=== PATIENT | female | born 1945 | race Caucasian/White ===

== ENCOUNTER 2017-12-29 13:22 | Outpatient (REF) | payer MEDICARE, OTHER, MEDICAID, SELFPAY ==
[2017-12-30 11:44] LABS: Campylobacter PCR SEE COMMENTS; Salmonella PCR SEE COMMENTS; Shiga Toxin PCR SEE COMMENTS; Shigella/Enteroinvasive Ecoli SEE COMMENTS
== END 2017-12-29 13:42 ==
LOC: LBN 13:22
PROVIDERS: PCP Family Medicine; Visit Provider Family Medicine
DX: R19.7 Diarrhea, unspecified (principal)
CPT/HCPCS: 87505

== ENCOUNTER → 2018-01-03 10:50 | Outpatient (BNVA) | payer MEDICARE, OTHER, MEDICAID, SELFPAY | PROVIDERS: PCP Family Medicine; Referring Provider Family Medicine; Visit Provider Orthopaedic Surgery | DX: S72.451D Displaced supracondylar fracture without intracondylar extension of lower end of right femur, subsequent encounter for closed fracture with routine healing (principal); X58.XXXD Exposure to other specified factors, subsequent encounter | CPT/HCPCS: 99211; 99213 ==

== ENCOUNTER 2018-01-03 12:43 | Outpatient (CLI) | payer MEDICARE, OTHER, MEDICAID, SELFPAY ==
--- NOTE | 2018-01-03 11:21 | DI.RAD_ITS ---
SYMPTOMS/DIAGNOSIS: FOLLOW UP FX RIGHT FEMUR: When compared with the previous examination of 10/04/17, there has been further healing of the distal femoral fracture with no interval change in position. A plate and compression screw device is noted in place.
== END 2018-01-03 13:03 ==
PROVIDERS: PCP Family Medicine; Visit Provider Orthopaedic Surgery
DX: S72.451D Displaced supracondylar fracture without intracondylar extension of lower end of right femur, subsequent encounter for closed fracture with routine healing (principal)
CPT/HCPCS: 73552; 99211; 99213

== ENCOUNTER 2018-03-30 11:53 | Inpatient (IN) | payer MEDICARE, OTHER, MEDICAID, SELFPAY ==
[2018-03-30] VITALS (58 sets, daily range): BP systolic 88–131; BP diastolic 40–82; PULSE 84–120; RESP 8–40; TEMP 36.7–38.2; O2SAT 85–100
--- NOTE | 2018-03-30 12:23 | DI.RAD_ITS ---
SYMPTOMS/DIAGNOSIS: COUGH, SHORTNESS OF BREATH, HYPOXIC CHEST X-RAY, PA AND LATERAL: Comparison chest x-ray is 09/18/15. The heart size and pulmonary vasculature are within normal limits. The lungs are hyperinflated consistent with underlying COPD. There are increased infiltrates seen in the left lower lobe. The findings are suspicious for pneumonia or atelectasis. There is scarring in the right lung base. No effusions or pneumothoraces are identified. Degenerative changes are seen in the spine. IMPRESSION: 1. Left lower lobe infiltrate suspicious for pneumonia. 2. COPD and pulmonary fibrosis.
[2018-03-30] MEDS: Normal Saline 1,000 ML 1000 ML IV ×2 (12:30→14:38)
[2018-03-30] MEDS: Acetaminophen 500 MG TAB 1000 MG PO (12:43)
[2018-03-30 12:47] LABS: BE (Venous) 4.7 mmol/L (-3-3); HCO3 (Venous) 30 mmol/L (22-28); O2 Sat (Venous) 61 % (70-80); TCO2 (Venous) 27 mmol/L (22-29); pCO2 (Venous) 52 mm/Hg (34-47); pH (Venous) 7.37 (7.32-7.43); pO2 (Venous) 31 mm/Hg (28-44)
[2018-03-30 12:51] LABS: Lactate-non-spesis 1.1 mmol/L (0.6-1.4)
[2018-03-30 12:55] LABS: Abs Immature Grans 0.04 k/cumm (0.0-0.09); Absolute Basophil Count 0.02 k/cumm (0.0-0.2); Absolute Eosinophil Count 0.05 k/cumm (0.0-0.7); Absolute Lymphocyte Count 1.07 k/cumm (1.2-3.4); Absolute Neutrophil Count 14.86 k/cumm (1.2-6.7); Basophils % 0.1; Eosinophils % 0.3; HCT 46.2 % (36.0-46.0); HGB 14.9 g/dL (12.0-15.5); Immature Grans % 0.2; Lymphocytes % 6.3; Mean Corp. HGB Concentration 32.3 g/dL (32.0-36.0); Mean Corpuscular Hemoglobin 29.9 pg (27.0-33.0); Mean Corpuscular Volume 92.8 fL (80-95); Mean Platelet Volume 9.4 fL (8.0-11.0); Monocytes % 5.3; Neutrophils % 87.8; Platelet Count 239 x1000/uL (130-400); RBC 4.98 m/cumm (4.00-5.20); RBC Distribution Width 14.6 % (11.7-14.6); White Blood Cell Count 16.93 k/cumm (4.4-10.8)
[2018-03-30 13:23] LABS: ALT 27 U/L (12-78); AST 17 U/L (15-37); Albumin 3.5 g/dL (3.4-5.0); Alkaline Phosphatase 97 U/L (46-116); Anion Gap 7.7 mmol/L (3-11); BUN 9 mg/dL (7-18); Bilirubin, Total 0.7 mg/dL (0.2-1.0); CO2 31.3 mmol/L (21.0-32.0); CREATININE 0.79 mg/dL (0.55-1.02); Calcium 9.4 mg/dL (8.5-10.1); Chloride 100 mmol/L (98-107); Glucose 130 mg/dL (70-100); Potassium 3.5 mmol/L (3.5-5.1); Sodium 139 mmol/L (136-145); Total Protein 7.7 g/dL (6.4-8.2)
[2018-03-30 13:27] LABS: Troponin I < 0.02 ng/mL (0.00-0.06)
[2018-03-30] MEDS: AZITHROMYCIN 500 MG in Normal Saline 250 ML 250 MG IVPB (14:00)
--- NOTE | 2018-03-30 14:30 | ED.GENADUL_ITS ---
Discharge Plan Disposition Patient Disposition: [facility] INPATIENT Condition: Stable Discharge Details Chief Complaint: RespSymp Clinical Impression: COPD (chronic obstructive pulmonary disease), Community acquired pneumonia, Hypoxemia Reason For Visit: PNEUMONIA, HYPOXIA Admit Date/Time: 03/30/18 15:09 Admit Provider: Kalia Eden Attending Provider: Kalia Eden Primary Care Provider: Ralph Rahman ED Provider: Filiberto Boone Discharge Data Discharge Date/Time-TO BE ENTERED AT DEPARTURE: 03/30/18 16:30 Medical Decision Making This is a 72-year-old female who presents for evaluation of shortness of breath for the last 2-3 weeks, with some left and right sided associated chest pain that she has associated with cough that occurred after a notable coughing episode. She does have home O2 only has not had needed basis. She has had productive green sputum. Her home O2 was noted to be in the low 80s to high 70s. She came in for further evaluation today. She noted notable hypoxemia on initial assessment but came up well with supplemental oxygen. Notable crackles in the left and the right. X-ray does show evidence per radiology of left lower lobe pneumonia, I am concerned for some mild right-sided pneumonia as well. Patient does have an elevated white count but a normal lactate. She will be rehydrated, pressures have remained stable in the low 100s to high 90s. Map is greater than 65. We have started her on 2 g of Rocephin and azithromycin for community-acquired pneumonia as she has had no admissions over the last 90 days or antibiotics. With the patient's oxygen requirements, evidence of pneumonia, fever, and clinical picture I do think she would benefit from admission. I discussed the case with Dr. Trevino he agrees with the assessment and plan. I have extensively reviewed the treatment plan with the patient. I have addressed all patient concerns at this time. I have also discussed the plan with the admitting physician and they agree with the current assessment and plan and have agreed to assume responsibility for the patient. All parties demonstrate verbal understanding and agreement with our assessment and plan at this time. EKG 12: 38 Rate 106, IL 144, QTc 457, QRS 84, sinus tachycardia, no significant ST elevations or depressions, questionable T wave inversion in V1 V2. Small Q wave in lead II, III, and aVF. No evidence of STEMI IMPRESSION: 1. Left lower lobe infiltrate suspicious for pneumonia. 2. COPD and pulmonary fibrosis. HPI General Date/Time Provider Initiated Documentation: 03/30/18 12:22 . HPI Narrative: This is a 72-year-old female with a past medical history of COPD, and no history of cardiac disease who presents today for evaluation of shortness of breath cough and chest pain. The patient states that over the last 2-3 weeks she has had a mild cough, which is gradually been getting worse, she has had subjective fever and chills at home. She has had productive sputum with green and yellow sputum. She does admit to some mild chest pain that appears to be associated with a cough. She says that it is notably reproducible when she touches her chest and she feels like she might have thrown out her rib. She has home oxygen only when needed, she states that she was checking her pulse oximetry at home today and she was between 79%. She came in immediately for further evaluation. Patient denies any radiation of her chest pain to her arms or neck, the pain is only located in her right lateral ribs, when she coughs. Denies PE risk factors such as recent long car rides, immobilization, recent surgery, prior history of DVT or PE, family history of PE or DVT, morbid obesity, exogenous estrogen and smoking, hemoptysis, history of cancer. The patient's most recent hospitalization was a year ago for knee surgery. Patient denies any other complaints at this time. She has not been on any recent antibiotics. Patient denies any IV or illicit drug use. Related Data Home Medications Medication Instructions Recorded Confirmed guaifenesin [Mucinex] 600 mg PO DAILY PRN 05/22/15 03/30/18 Salonpas 1 ea TOPICAL .DAILY X 12 HOURS 11/10/16 03/30/18 budesonide 1 vial INHALATION BID 12/15/16 03/30/18 formoterol fumarate [Perforomist] 1 vial INHALATION BID ml 12/15/16 03/30/18 Proventil Hfa 1 - 2 puff INHALATION Q4H PRN #1 06/30/17 03/30/18 inhaler budesonide-formoterol HFA 80 2 puff INHALATION BID #10.2 gm 01/24/18 03/30/18 mcg-4.5 mcg/actuation aerosol inhaler sertraline 100 mg tablet 100 mg PO DAILY #30 tab-cap 01/24/18 03/30/18 umeclidinium 62.5 mcg/actuation 1 inh INHALATION DAILY #30 puff 01/24/18 03/30/18 blister powder for inhalation roflumilast 500 mcg tablet 500 mcg PO DAILY #90 tab-cap 02/24/18 03/30/18 clonazepam 1 mg tablet 1 mg PO BID PRN #60 tab 03/27/18 03/30/18 cyclobenzaprine 5 mg tablet 5 mg PO HS PRN #30 tab 03/27/18 03/30/18 Previous Rx's Medication Instructions Recorded budesonide-formoterol HFA 80 2 puff INHALATION BID #10.2 gm 01/24/18 mcg-4.5 mcg/actuation aerosol inhaler sertraline 100 mg tablet 100 mg PO DAILY #30 tab-cap 01/24/18 umeclidinium 62.5 mcg/actuation 1 inh INHALATION DAILY #30 puff 01/24/18 blister powder for inhalation roflumilast 500 mcg tablet 500 mcg PO DAILY #90 tab-cap 02/24/18 clonazepam 1 mg tablet 1 mg PO BID PRN #60 tab 03/27/18 cyclobenzaprine 5 mg tablet 5 mg PO HS PRN #30 tab 03/27/18 Allergies Allergy/AdvReac Type Severity Reaction Status Date / Time No Known Allergies Allergy Unverified 03/30/18 12:10 General Stated Complaint: RespSymp MCKAYLA: 2 Review of Systems Review of Systems All systems reviewed & are unremarkable except as noted in HPI and below PFSH Appendectomy CHEST TUBE Extraction of cataract LAMINECTOMY Social History lives independently: Yes other: living along; missing her family; lonely Smoking/Tobacco Use Status: Former Tobacco Use quit date: 09/16/13 pack-years: 25 alcohol intake: current alcohol intake frequency: holidays/special occasions only substance use type: does not use additional social history: 16 years ago. Originally from [place], moved here to be near son and grand children. On disability due to chronic back pain. 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 Approximate 75 pack year history of tobacco. No alcohol or illicit drug use endorsed. Exam Narrative Exam Narrative: 1.Const: Well-nourished, Well-developed, appearing stated age 2.Eyes: PERRL, no conjunctival injection, and symmetrical lids. 3.ENT: Atraumatic external nose and ears. Notably dry MM. Neck: Symmetric, trachea midline, No thyromegaly. 4.CVS: +S1/S2, No murmurs or gallops. Peripheral pulses 2+ and equal in all extremities. Brisk capillary refill in all extremities. 5.RESP: No wheezes or rhonchi, crackles in the bases tight lateral, notable reproducible chest pain on palpation of the right and left chest 6.GI: Soft, Nontender/Nondistended, No hepatosplenomegaly. No guarding or rebound. 7.MSK: Normocephalic/Atraumatic, Extremities w/o deformity or ttp No cyanosis or clubbing, Normal movement of all extremities 8.Skin: Warm, Dry. No rashes or lesions. 9.Neuro: baking powder mixer II-XII grossly intact. Sensation grossly intact, no focal neurologic deficits. 10.Psych: (AAO) x3. Appropriate mood and affect Course Vital Signs Temperature 38.2 C H 03/30/18 11:59 Pulse 120 H 03/30/18 11:59 Respiratory Rate 18 03/30/18 11:59 Blood Pressure 94/55 L 03/30/18 11:59 Pulse Oximetry 85 L 03/30/18 11:59 Temperature 38.2 C H 03/30/18 11:59 Pulse 120 H 03/30/18 11:59 Respiratory Rate 18 03/30/18 11:59 Respiratory Effort Labored 03/30/18 14:01 Blood Pressure 94/55 L 03/30/18 11:59 Blood Pressure Position Sitting 03/30/18 11:59 Pulse Oximetry 85 L 03/30/18 11:59 Oxygen Delivery Method Room Air 03/30/18 11:59 Oxygen Flow Rate 0 03/30/18 11:59 Lab/Test Results Lab/Test Results: 03/30/18 13:00 Blood Blood Culture - Pending 03/30/18 12:30 Blood Blood Culture - Pending Laboratory Tests Range/Units 03/30/18 03/30/18 03/30/18 12:30 12:30 12:30 WBC (4.4-10.8) k/cumm 16.93 H RBC (4.00-5.20) m/cumm 4.98 Hgb (12.0-15.5) g/dL 14.9 Hct (36.0-46.0) % 46.2 H MCV (80-95) fL 92.8 MCH (27.0-33.0) pg 29.9 MCHC (32.0-36.0) g/dL 32.3 RDW (11.7-14.6) % 14.6 Plt Count (130-400) x1000/uL 239 MPV (8.0-11.0) fL 9.4 Immature Gran % 0.2 Neutrophils % 87.8 Lymphocytes % 6.3 Monocytes % 5.3 Eosinophils % 0.3 Basophils % 0.1 Absolute Neutrophils (1.2-6.7) k/cumm 14.86 H Absolute Lymphocytes (1.2-3.4) k/cumm 1.07 L Absolute Monocytes (0.11-0.7) k/cumm 0.90 H Absolute Eosinophils (0.0-0.7) k/cumm 0.05 Absolute Basophils (0.0-0.2) k/cumm 0.02 VBG pH (7.32-7.43) VBG pCO2 (34-47) mm/Hg VBG pO2 (28-44) mm/Hg VBG HCO3 (22-28) mmol/L VBG Total CO2 (22-29) mmol/L VBG O2 Saturation (70-80) % VBG Base Excess (-3-3) mmol/L Sodium (136-145) mmol/L 139 Potassium (3.5-5.1) mmol/L 3.5 Chloride (98-107) mmol/L 100 Carbon Dioxide (21.0-32.0) mmol/L 31.3 Anion Gap (3-11) mmol/L 7.7 BUN (7-18) mg/dL 9 Creatinine (0.55-1.02) mg/dL 0.79 Estimated GFR/1.73 m2 (mL/min/1.73m2) >= 60.00 Glucose (70-100) mg/dL 130 H Lactate (0.6-1.4) mmol/L 1.1 Calcium (8.5-10.1) mg/dL 9.4 Total Bilirubin (0.2-1.0) mg/dL 0.7 AST (15-37) U/L 17 ALT (12-78) U/L 27 Alkaline Phosphatase (46-116) U/L 97 Troponin I (0.00-0.06) ng/mL < 0.02 Total Protein (6.4-8.2) g/dL 7.7 Albumin (3.4-5.0) g/dL 3.5 Range/Units 03/30/18 12:30 WBC (4.4-10.8) k/cumm RBC (4.00-5.20) m/cumm Hgb (12.0-15.5) g/dL Hct (36.0-46.0) % MCV (80-95) fL MCH (27.0-33.0) pg MCHC (32.0-36.0) g/dL RDW (11.7-14.6) % Plt Count (130-400) x1000/uL MPV (8.0-11.0) fL Immature Gran % Neutrophils % Lymphocytes % Monocytes % Eosinophils % Basophils % Absolute Neutrophils (1.2-6.7) k/cumm Absolute Lymphocytes (1.2-3.4) k/cumm Absolute Monocytes (0.11-0.7) k/cumm Absolute Eosinophils (0.0-0.7) k/cumm Absolute Basophils (0.0-0.2) k/cumm VBG pH (7.32-7.43) 7.37 VBG pCO2 (34-47) mm/Hg 52 H VBG pO2 (28-44) mm/Hg 31 VBG HCO3 (22-28) mmol/L 30 H VBG Total CO2 (22-29) mmol/L 27 VBG O2 Saturation (70-80) % 61 L VBG Base Excess (-3-3) mmol/L 4.7 H Sodium (136-145) mmol/L Potassium (3.5-5.1) mmol/L Chloride (98-107) mmol/L Carbon Dioxide (21.0-32.0) mmol/L Anion Gap (3-11) mmol/L BUN (7-18) mg/dL Creatinine (0.55-1.02) mg/dL Estimated GFR/1.73 m2 (mL/min/1.73m2) Glucose (70-100) mg/dL Lactate (0.6-1.4) mmol/L Calcium (8.5-10.1) mg/dL Total Bilirubin (0.2-1.0) mg/dL AST (15-37) U/L ALT (12-78) U/L Alkaline Phosphatase (46-116) U/L Troponin I (0.00-0.06) ng/mL Total Protein (6.4-8.2) g/dL Albumin (3.4-5.0) g/dL
[2018-03-30] MEDS: Albuterol/Ipratropium 3 ML UPD VIAL UPD ×2 (14:45→18:21)
[2018-03-30] MEDS: methylPREDNISolone SUCC 125 MG VIAL IVP (14:45)
--- NOTE | 2018-03-30 15:32 | NUR.NOTE ---
Dr Eden ordered blood cultures on admission. Dr Boone already orded on initial ER work up. I cancelled Dr. Eden's BC order with his permission.Nursing Note:
--- NOTE | 2018-03-30 16:44 | W.PM.HP.N ---
Assessment and Plan (1) Bacterial pneumonia: Current visit: No Status: Acute No recently reported antibiotic use or hospitalizations. Initiated on Azithromycin and Ceftriaxone - will continue. Monitor blood cultures and check sputum culture as well. Mrs. Stephens has a fever, tachypnea, tachycardia, hypotension, elevated WBC with a pulmonary source. Technically qualifies as sepsis, but with a normal Lactic Acid, normal creatinine and LFTs, normal platelet count, and no evidence of acute respiratory failure. Also reports hypotension is chronic and essentially unchanged. Has received aggressive IVFs in the ED, which will be continued. May benefit from initial monitoring in the ICU. (2) Chronic emphysema syndrome: Current visit: No Status: Chronic No apparent acute exacerbation. Initiated on IV Steroids due to current pneumonia and concurrent hypoxia. Continue aggressive duonebs, inhaled budesonide, and prn Xopenex as well. (3) Chronic anxiety: Current visit: No Status: Chronic Continue SSRI and home Clonazepam. (4) DVT (deep venous thrombosis): Current visit: Yes Status: Acute SC Lovenox. Initiate PPI therapy for GI prophylaxis as well. History of Present Illness Chief Complaint: Cough, dyspnea Narrative: Very pleasant 72-year-old woman with past medical history significant for COPD, presents to [facility] emergency department with complaints of cough and dyspnea. Mrs. Stephens as an approximate [id number] history of tobacco abuse, and subsequent development of significant COPD. She reports a change in her cough approximately 2-3 weeks ago, with onset of acute or worsening symptoms accompanied by dyspnea last night. She also endorsed a fever with a temperature of 101, as well as hypoxia with a pulse ox in the 80s. She attempted to use her home O2 but continued to be uncomfortable, and eventually had multiple bouts of vomiting. Due to her symptoms she presented to the emergency department for further evaluation and treatment. Workup in the ED was significant for evidence of a fever with a temperature of 38.2, tachycardia and hypotension, and initial hypoxia. Lab work showed evidence of a leukocytosis, and a chest x-ray confirmed a left lower lobe infiltrate. Given the above findings the patient was referred for admission for further evaluation and treatment. Review of Systems Review of Systems All systems reviewed & are unremarkable except as noted in HPI and below and Unobtainable due to (Chronic neck, back, and shoulder pain endorsed.) PFSH Appendectomy CHEST TUBE Extraction of cataract LAMINECTOMY Social History lives independently: Yes other: living along; missing her family; lonely Smoking/Tobacco Use Status: Former Tobacco Use quit date: 09/16/13 pack-years: 25 alcohol intake: current alcohol intake frequency: holidays/special occasions only substance use type: does not use additional social history: 16 years ago. Originally from [place], moved here to be near son and grand children. On disability due to chronic back pain. 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 Approximate 75 pack year history of tobacco. No alcohol or illicit drug use endorsed. Meds Home Medications Medication Instructions Recorded Confirmed Type guaifenesin [Mucinex] 600 mg PO DAILY PRN 05/22/15 03/30/18 History Salonpas 1 ea TOPICAL .DAILY X 12 HOURS 11/10/16 03/30/18 History budesonide 1 vial INHALATION BID 12/15/16 03/30/18 History formoterol fumarate [Perforomist] 1 vial INHALATION BID ml 12/15/16 03/30/18 History Proventil Hfa 1 - 2 puff INHALATION Q4H PRN #1 06/30/17 03/30/18 History inhaler budesonide-formoterol HFA 80 2 puff INHALATION BID #10.2 gm 01/24/18 03/30/18 Rx mcg-4.5 mcg/actuation aerosol inhaler sertraline 100 mg tablet 100 mg PO DAILY #30 tab-cap 01/24/18 03/30/18 Rx umeclidinium 62.5 mcg/actuation 1 inh INHALATION DAILY #30 puff 01/24/18 03/30/18 Rx blister powder for inhalation roflumilast 500 mcg tablet 500 mcg PO DAILY #90 tab-cap 02/24/18 03/30/18 Rx clonazepam 1 mg tablet 1 mg PO BID PRN #60 tab 03/27/18 03/30/18 Rx cyclobenzaprine 5 mg tablet 5 mg PO HS PRN #30 tab 03/27/18 03/30/18 Rx Allergies Allergy/AdvReac Type Severity Reaction Status Date / Time No Known Allergies Allergy Unverified 03/30/18 12:10 Exam Narrative Exam Narrative: General: Thin woman who appears mildly uncomfortable and acutely ill but not toxic, AAOX3. HEENT: Dry Mucous Membranes Neck: Supple CV: Regular, borderline tachycardic at time of exam, S1S2, No rubs, murmurs, or gallops. Pulmonary: Crackles at the left base with decreased breath sounds. Minimal surrounding wheezing, otherwise clear to auscultation. Abdomen: + Bowel Sounds, soft, nontender, nondistended Vascular: No lower extremity edema Psych: Normal mood and affect. Results Imaging Chest x-ray: report reviewed Additional studies: Exam 03/30/2018 a RAD:XR chest 2V PA & lateral SYMPTOMS/DIAGNOSIS: COUGH, SHORTNESS OF BREATH, HYPOXIC CHEST X-RAY, PA AND LATERAL: Comparison chest x-ray is 09/18/15. The heart size and pulmonary vasculature are within normal limits. The lungs are hyperinflated consistent with underlying COPD. There are increased infiltrates seen in the left lower lobe. The findings are suspicious for pneumonia or atelectasis. There is scarring in the right lung base. No effusions or pneumothoraces are identified. Degenerative changes are seen in the spine. IMPRESSION: 1. Left lower lobe infiltrate suspicious for pneumonia. 2. COPD and pulmonary fibrosis. Labs : 03/30/18 12:30 03/30/18 12:30 Laboratory Results - last 24 hr 03/30/18 03/30/18 03/30/18 12:30 12:30 12:30 WBC 16.93 H RBC 4.98 Hgb 14.9 Hct 46.2 H MCV 92.8 MCH 29.9 MCHC 32.3 RDW 14.6 Plt Count 239 MPV 9.4 Immature Gran % 0.2 Neutrophils % 87.8 Lymphocytes % 6.3 Monocytes % 5.3 Eosinophils % 0.3 Basophils % 0.1 Absolute Neutrophils 14.86 H Absolute Lymphocytes 1.07 L Absolute Monocytes 0.90 H Absolute Eosinophils 0.05 Absolute Basophils 0.02 VBG pH VBG pCO2 VBG pO2 VBG HCO3 VBG Total CO2 VBG O2 Saturation VBG Base Excess Sodium 139 Potassium 3.5 Chloride 100 Carbon Dioxide 31.3 Anion Gap 7.7 BUN 9 Creatinine 0.79 Estimated GFR/1.73 m2 >= 60.00 Glucose 130 H Lactate 1.1 Calcium 9.4 Total Bilirubin 0.7 AST 17 ALT 27 Alkaline Phosphatase 97 Troponin I < 0.02 Total Protein 7.7 Albumin 3.5 03/30/18 12:30 WBC RBC Hgb Hct MCV MCH MCHC RDW Plt Count MPV Immature Gran % Neutrophils % Lymphocytes % Monocytes % Eosinophils % Basophils % Absolute Neutrophils Absolute Lymphocytes Absolute Monocytes Absolute Eosinophils Absolute Basophils VBG pH 7.37 VBG pCO2 52 H VBG pO2 31 VBG HCO3 30 H VBG Total CO2 27 VBG O2 Saturation 61 L VBG Base Excess 4.7 H Sodium Potassium Chloride Carbon Dioxide Anion Gap BUN Creatinine Estimated GFR/1.73 m2 Glucose Lactate Calcium Total Bilirubin AST ALT Alkaline Phosphatase Troponin I Total Protein Albumin Last Vital Signs Temp 38.2 C H 03/30/18 11:59 Pulse 96 H 03/30/18 16:01 Resp 40 H 03/30/18 16:10 BP 101/47 L 03/30/18 16:01 Pulse Ox 96 03/30/18 16:10
[2018-03-30] MEDS: Acetaminophen 325 MG TAB PO (17:06)
[2018-03-30] MEDS: Cyclobenzaprine 10 MG TAB 5 MG PO (17:07)
[2018-03-30] MEDS: Normal Saline 1,000 ML 175 ML IV ×2 (18:02→23:54)
[2018-03-30] MEDS: Enoxaparin 40 MG/0.4 ML SYR SC (18:03)
[2018-03-30] MEDS: Potassium Chloride 20 MEQ TABCR 40 MEQ PO (18:04)
[2018-03-30] MEDS: Magnesium Oxide 400 MG TAB PO (18:04)
[2018-03-30] MEDS: Budesonide 0.5 MG/2 ML UPD VIAL UPD (18:21)
[2018-03-30] MEDS: Benzonatate 100 MG CAP 200 MG PO (20:15)
[2018-03-30] MEDS: methylPREDNISolone SUCC 125 MG VIAL 60 MG IVP (22:56)
[2018-03-30 23:24] LABS: Bilirubin Negative (Negative); Blood Trace-lysed (Negative); Clarity Clear; Glucose 500 mg/dL (Negative); Ketones Negative (Negative); Leukocyte Esterase Negative (Negative); Nitrite Negative (Negative); Urobilinogen 0.2 EU/dL (Up TO 0.2); pH 5.5 (5-8)
[2018-03-30 23:32] LABS: Bacteria Rare HPF (Negative); C & S Indicated? No; Casts Negative LPF (Negative); Crystals Negative HPF (Negative); Epithelial Cells Rare HPF (Negative); Mucus Negative (Negative); RBC 0-2 (0-2); WBC 0-2 HPF (0-5)
[2018-03-31] VITALS (43 sets, daily range): BP systolic 92–113; BP diastolic 44–73; PULSE 53–164; RESP 5–23; TEMP 36–37; O2SAT 90–98
[2018-03-31] MEDS: Acetaminophen 325 MG TAB PO ×4 (04:17→23:23)
[2018-03-31] MEDS: guaiFENesin/D-METHORPHAN HB 5 ML CUP 10 ML PO ×2 (04:17→09:45)
[2018-03-31] MEDS: Normal Saline Flush 10 ML SYR ×3 (04:18→07:59)
[2018-03-31] MEDS: methylPREDNISolone SUCC 125 MG VIAL 60 MG IVP ×2 (04:18→09:40)
[2018-03-31] MEDS: Normal Saline 1,000 ML 175 ML IV ×2 (05:10→11:02)
[2018-03-31 07:13] LABS: Abs Immature Grans 0.02 k/cumm (0.0-0.09); Absolute Lymphocyte Count 0.51 k/cumm (1.2-3.4); Absolute Monocyte Count 0.14 k/cumm (0.11-0.7); HCT 37.9 % (36.0-46.0); Immature Grans % 0.2; Lymphocytes % 5.5; Mean Corp. HGB Concentration 31.7 g/dL (32.0-36.0); Mean Corpuscular Hemoglobin 30.1 pg (27.0-33.0); Mean Platelet Volume 9.3 fL (8.0-11.0); Monocytes % 1.5; Neutrophils % 92.8; Platelet Count 179 x1000/uL (130-400); RBC 3.99 m/cumm (4.00-5.20); RBC Distribution Width 14.7 % (11.7-14.6); White Blood Cell Count 9.21 k/cumm (4.4-10.8)
[2018-03-31 07:22] LABS: Absolute Neutrophil Count 8.55 k/cumm (1.2-6.7)
[2018-03-31 07:32] LABS: Anion Gap 7.7 mmol/L (3-11); BUN 7 mg/dL (7-18); CO2 25.3 mmol/L (21.0-32.0); CREATININE 0.59 mg/dL (0.55-1.02); Calcium 8.2 mg/dL (8.5-10.1); Chloride 109 mmol/L (98-107); Glucose 182 mg/dL (70-100); Magnesium 1.8 mg/dL (1.8-2.4); Potassium 4.1 mmol/L (3.5-5.1); Sodium 142 mmol/L (136-145)
[2018-03-31] MEDS: Sertraline 50 MG TAB 100 MG PO (07:58)
[2018-03-31] MEDS: Pantoprazole 40 MG VIAL IVP (07:58)
[2018-03-31] MEDS: Benzonatate 100 MG CAP 200 MG PO ×3 (07:58→19:45)
[2018-03-31] MEDS: Magnesium Oxide 400 MG TAB PO ×3 (09:37→09:40)
[2018-03-31] MEDS: Albuterol/Ipratropium 3 ML UPD VIAL UPD ×2 (11:15→14:22)
[2018-03-31] MEDS: Budesonide 0.5 MG/2 ML UPD VIAL UPD ×2 (11:21→19:45)
[2018-03-31] MEDS: Umeclidinium 7 CAP INHALER 1 CAP IH (11:25)
--- NOTE | 2018-03-31 11:52 | PHARADMIT ---
Addendum entered by Marilynn Marroquin 04/04/18 15:06: Pharmacy Note Subjective Objective BP-145/82 other VS okay labs are within normal limits Assessment no med changes azithromycin and ceftriaxone continue (day #6) Plan will finish out IV ceftriaxone so will not need to go home on abx per progress note possible discharge tomorrow Original Note: Addendum entered by Marilynn Marroquin 04/03/18 15:09: Pharmacy Note Subjective still not feeling back to baseline per progress note Objective VS-okay no labs Assessment guaifenesin changed from daily PRN to BID scheduled azithromycin and ceftriaxone continue (day #5 today) blood cultures no growth@ 96 hours, rapid flu negative, sputum grew normal ailyn and yeast Plan continue to watch VS, labs and for med changes Original Note: Addendum entered by Marilynn Marroquin 04/02/18 10:05: Pharmacy Note Subjective pt slept well last night per nursing report Objective VS-okay WBC-10.20(down) Assessment azithromycin changed from IV to Po azithromycin and ceftriaxone continue (day #4 today) IV pantoprazole discontinued Plan continue to watch VS, labs and for med changes Original Note: Addendum entered by Marilynn Marroquin 04/01/18 10:17: Pharmacy Note Subjective nursing asked about using heat to help with the patient's pain as that is what she uses at home Objective VS-okay pain-10/10 weight-57.5(up, nursing not sure if error), WBC-13.71(up) Assessment azithromycin and ceftriaxone continue (day #3 today) IV methylprednisolone changed to PO prednisone blood cultures no growth at 24 hours, sputum culture grew normal ailyn, rapid influenza was negative Plan continue to watch VS, labs and for med changes (IV to PO abx) Original Note: Admission Pharmacy Clinical Review PNEUMOMNIA/HYPOXIA Code Status DNR/DNI Current Weight 53.5 kg Renally Cleared and Narrow Therapeutic Index Meds CRCL ~54ML/MIN QTc Value / Action Taken 457 BP Control, Fever 95/59 AFEBRILE Electrolytes reviewed OK DVT Prophylaxis ENOXAPARIN Opiate Usage / Scheduled Bowel Regimen Ordered NO/PRN Plt/SCr for Heparin / Enoxaparin 179/0.59 INR for Warfarin NA H/H stable, WBC/Bands 12.0/37.9 WBC 9.21 Antibiotic appropriateness AZITHROMYCIN IV AND CEFTRIAXONE IV Cultures and Sensitivities BC PENDING, SPUTUM SHOWS GRAM POS AND NEG Surgical ABX d/c within 24 hr NA DM control / Insulin Dosing NA Heart Failure (Check EF%) (JAGRUTI's, B-Block, Diuretics) NA IV to PO Switch IV ABX Home Meds Reviewed Avoid concurrent use of umeclidinium with any other drugs that have anticholinergic properties. If such combinations cannot be avoided, monitor patients closely for evidence of anticholinergic-related toxicities (e.g., urinary retention, constipation, tachycardia, dry mouth, etc.) PULVERIZER Depressants may enhance the adverse/toxic effect of other PULVERIZER Depressants Home Meds Not Ordered Salonpas 1 ea TOPICAL .DAILY X 12 HOURS 11/10/16 [History Confirmed 03/30/18] formoterol fumarate [Perforomist] 1 vial INHALATION BID ml 12/15/16 Proventil Hfa 1 - 2 puff INHALATION Q4H PRN #1 inhaler 06/30/17 budesonide-formoterol HFA 80 mcg-4.5 mcg/actuation aerosol inhaler 2 puff INHALATION BID roflumilast 500 mcg tablet 500 mcg PO DAILY #90 tab-cap 02/24/18 Comments
--- NOTE | 2018-03-31 13:00 | W.PM.PROGNOT ---
Date of Service Date of service: 03/31/18 Time of Service: 13:00 Assessment and Plan (1) Bacterial pneumonia: Current visit: No Status: Acute No recently reported antibiotic use or hospitalizations. Initiated on Azithromycin and Ceftriaxone - now day #2. Monitor blood cultures and check sputum culture as well - results currently pending. Mrs. Stephens had a fever, tachypnea, tachycardia, hypotension, elevated WBC with a pulmonary source. Technically qualified as sepsis, but with a normal Lactic Acid, normal creatinine and LFTs, normal platelet count, and no evidence of acute respiratory failure. Also reported hypotension to be chronic and essentially unchanged. Has received aggressive IVFs in the ED and in the ICU overnight. Appears vastly improved. Will titrate IVFs today with goal of discontinuation by tomorrow. (2) Chronic emphysema syndrome: Current visit: No Status: Chronic No apparent acute exacerbation. Initiated on IV Steroids due to current pneumonia and concurrent hypoxia - will start to wean today. Continue aggressive duonebs, inhaled budesonide, and prn Xopenex as well. (3) Chronic anxiety: Current visit: No Status: Chronic Continue SSRI and home Clonazepam. (4) DVT (deep venous thrombosis): Current visit: Yes Status: Acute SC Lovenox. Initiated PPI therapy for GI prophylaxis as well. Subjective Interval history since last seen: Very pleasant 72-year-old woman with past medical history significant for COPD, presents to [facility] emergency department with complaints of cough and dyspnea. Mrs. Stephens as an approximate [id number] history of tobacco abuse, and subsequent development of significant COPD. She reports a change in her cough approximately 2-3 weeks ago, with onset of acute or worsening symptoms accompanied by dyspnea last night. She also endorsed a fever with a temperature of 101, as well as hypoxia with a pulse ox in the 80s. She attempted to use her home O2 but continued to be uncomfortable, and eventually had multiple bouts of vomiting. Due to her symptoms she presented to the emergency department for further evaluation and treatment. Workup in the ED was significant for evidence of a fever with a temperature of 38.2, tachycardia and hypotension, and initial hypoxia. Lab work showed evidence of a leukocytosis, and a chest x-ray confirmed a left lower lobe infiltrate. Given the above findings the patient was referred for admission for further evaluation and treatment. This morning the patient reports mild improvement in breathing but slight worsening in cough. Her leukocytosis has resolved, and she has remained afbrile since initial presentation. No overnight events reported. Exam Narrative Exam Narrative: General: Thin woman who appears mildly uncomfortable and acutely ill but not toxic, AAOX3. HEENT: Continued but improved Dry Mucous Membranes Neck: Supple CV: Regular, borderline tachycardic at time of exam, S1S2, No rubs, murmurs, or gallops. Pulmonary: Crackles at the left base with decreased breath sounds. Minimal surrounding wheezing, otherwise clear to auscultation. Abdomen: + Bowel Sounds, soft, nontender, nondistended Vascular: No lower extremity edema Psych: Normal mood and affect. Objective Objective Clinical Data: Abnormal lab results 03/30/18 03/30/18 03/30/18 Range/Units 12:30 12:30 23:15 WBC 16.93 H (4.4-10.8) k/cumm RBC (4.00-5.20) m/cumm Hct 46.2 H (36.0-46.0) % MCHC (32.0-36.0) g/dL RDW (11.7-14.6) % Absolute Neutrophils 14.86 H (1.2-6.7) k/cumm Absolute Lymphocytes 1.07 L (1.2-3.4) k/cumm Absolute Monocytes 0.90 H (0.11-0.7) k/cumm Chloride (98-107) mmol/L Glucose 130 H (70-100) mg/dL Calcium (8.5-10.1) mg/dL Urine Blood Trace-lysed H (Negative) Urine Glucose 500 H (Negative) mg/dL 03/31/18 03/31/18 Range/Units 06:53 06:53 WBC (4.4-10.8) k/cumm RBC 3.99 L (4.00-5.20) m/cumm Hct (36.0-46.0) % MCHC 31.7 L (32.0-36.0) g/dL RDW 14.7 H (11.7-14.6) % Absolute Neutrophils 8.55 H (1.2-6.7) k/cumm Absolute Lymphocytes 0.51 L (1.2-3.4) k/cumm Absolute Monocytes (0.11-0.7) k/cumm Chloride 109 H (98-107) mmol/L Glucose 182 H (70-100) mg/dL Calcium 8.2 L (8.5-10.1) mg/dL Urine Blood (Negative) Urine Glucose (Negative) mg/dL Vital Signs Temperature 36.0 C L 03/31/18 08:12 Temperature Source Tympanic 03/31/18 08:12 Pulse 77 03/31/18 11:20 Pulse 88 03/31/18 08:30 Respiratory Rate 11 L 03/31/18 11:20 Respiratory Effort Short of Breath 03/31/18 08:12 Respiratory Depth Shallow 03/31/18 08:12 Respiratory Pattern Normal 03/31/18 08:12 Blood Pressure 95/59 L 03/31/18 08:12 Blood Pressure Mean 71 03/31/18 08:12 Blood Pressure Position Supine 03/31/18 08:12 Pulse Oximetry 98 03/31/18 11:20 Oxygen Delivery Method Nasal Cannula 03/31/18 11:15 Oxygen Flow Rate 2 03/31/18 11:15 Pain Level 8 03/31/18 08:28 Intake & Output 03/30/18 03/31/18 03/31/18 23:59 11:59 23:59 Intake Total 4020 / 4020 2660 / 2660 Output Total 2049 / 2049 250 / 250 Balance 1969 / 1969 2410 / 2410 Weight 53.524 kg 53.5 kg Intake: IV 3300 / 3300 2000 / 2000 Oral 720 / 720 660 / 660 Output: Urine 1750 / 1750 250 / 250 Stool 300 / 300 Other: Urine Color Yellow Yellow Urine Appearance Clear Clear Urine Odor Normal Normal Comment mixed with diarrhea No void at this time. Stool Occult Blood Negative Stool Size Small Stool Characteristics Liquid Liquid Brown Voiding Methods Toilet Bedside Commode Laboratory Results WBC 9.21 k/cumm (4.4-10.8) D 03/31/18 06:53 RBC 3.99 m/cumm (4.00-5.20) L 03/31/18 06:53 Hgb 12.0 g/dL (12.0-15.5) D 03/31/18 06:53 Hct 37.9 % (36.0-46.0) 03/31/18 06:53 MCV 95.0 fL (80-95) 03/31/18 06:53 MCH 30.1 pg (27.0-33.0) 03/31/18 06:53 MCHC 31.7 g/dL (32.0-36.0) L 03/31/18 06:53 RDW 14.7 % (11.7-14.6) H 03/31/18 06:53 Plt Count 179 x1000/uL (130-400) 03/31/18 06:53 MPV 9.3 fL (8.0-11.0) 03/31/18 06:53 Immature Gran % 0.2 03/31/18 06:53 Neutrophils % 92.8 03/31/18 06:53 Lymphocytes % 5.5 03/31/18 06:53 Monocytes % 1.5 03/31/18 06:53 Eosinophils % 0.0 03/31/18 06:53 Basophils % 0.0 03/31/18 06:53 Absolute Neutrophils 8.55 k/cumm (1.2-6.7) H 03/31/18 06:53 Absolute Lymphocytes 0.51 k/cumm (1.2-3.4) L 03/31/18 06:53 Absolute Monocytes 0.14 k/cumm (0.11-0.7) 03/31/18 06:53 Absolute Eosinophils 0.00 k/cumm (0.0-0.7) 03/31/18 06:53 Absolute Basophils 0.00 k/cumm (0.0-0.2) 03/31/18 06:53 VBG pH 7.37 (7.32-7.43) 03/30/18 12:30 VBG pCO2 52 mm/Hg (34-47) H 03/30/18 12:30 VBG pO2 31 mm/Hg (28-44) 03/30/18 12:30 VBG HCO3 30 mmol/L (22-28) H 03/30/18 12:30 VBG Total CO2 27 mmol/L (22-29) 03/30/18 12:30 VBG O2 Saturation 61 % (70-80) L 03/30/18 12:30 VBG Base Excess 4.7 mmol/L (-3-3) H 03/30/18 12:30 Sodium 142 mmol/L (136-145) 03/31/18 06:53 Potassium 4.1 mmol/L (3.5-5.1) 03/31/18 06:53 Chloride 109 mmol/L (98-107) H 03/31/18 06:53 Carbon Dioxide 25.3 mmol/L (21.0-32.0) 03/31/18 06:53 Anion Gap 7.7 mmol/L (3-11) 03/31/18 06:53 BUN 7 mg/dL (7-18) 03/31/18 06:53 Creatinine 0.59 mg/dL (0.55-1.02) 03/31/18 06:53 Estimated GFR/1.73 m2 >= 60.00 (mL/min/1.73m2) 03/31/18 06:53 Glucose 182 mg/dL (70-100) H 03/31/18 06:53 Lactate 1.1 mmol/L (0.6-1.4) 03/30/18 12:30 Calcium 8.2 mg/dL (8.5-10.1) L 03/31/18 06:53 Magnesium 1.8 mg/dL (1.8-2.4) 03/31/18 06:53 Total Bilirubin 0.7 mg/dL (0.2-1.0) 03/30/18 12:30 AST 17 U/L (15-37) 03/30/18 12:30 ALT 27 U/L (12-78) 03/30/18 12:30 Alkaline Phosphatase 97 U/L (46-116) 03/30/18 12:30 Troponin I < 0.02 ng/mL (0.00-0.06) 03/30/18 12:30 Total Protein 7.7 g/dL (6.4-8.2) 03/30/18 12:30 Albumin 3.5 g/dL (3.4-5.0) 03/30/18 12:30 Urine Color Yellow (Yellow) 03/30/18 23:15 Urine Clarity Clear 03/30/18 23:15 Urine pH 5.5 (5-8) 03/30/18 23:15 Ur Specific [place] 1.010 (1.005-1.025) 03/30/18 23:15 Urine Protein Negative mg/dL (Negative) 03/30/18 23:15 Urine Ketones Negative mg/dL (Negative) 03/30/18 23:15 Urine Blood Trace-lysed (Negative) H 03/30/18 23:15 Urine Nitrite Negative (Negative) 03/30/18 23:15 Urine Bilirubin Negative (Negative) 03/30/18 23:15 Urine Urobilinogen 0.2 EU/dL (Up TO 0.2) 03/30/18 23:15 Ur Leukocyte Esterase Negative (Negative) 03/30/18 23:15 Urine RBC 0-2 (0-2) 03/30/18 23:15 Urine WBC 0-2 HPF (0-5) 03/30/18 23:15 Ur Epithelial Cells Rare HPF (Negative) 03/30/18 23:15 Urine Crystals Negative HPF (Negative) 03/30/18 23:15 Urine Bacteria Rare HPF (Negative) 03/30/18 23:15 Urine Casts Negative LPF (Negative) 03/30/18 23:15 Urine Mucus Negative (Negative) 03/30/18 23:15 Ur Culture Indicated? No 03/30/18 23:15 Urine Glucose 500 mg/dL (Negative) H 03/30/18 23:15
[2018-03-31] MEDS: clonazePAM 1 MG TAB PO (13:06)
[2018-03-31] MEDS: AZITHROMYCIN 500 MG in Normal Saline 250 ML 166.667 MG IVPB (14:37)
--- NOTE | 2018-03-31 16:16 | PDOC.CMIN ---
Care Management Initial Assess REASON FOR HOSPITALIZATION:: Pneumonia, Hypoxia PAST MEDICAL HISTORY/PAST SURGICAL HISTORY:: Appendectomy, Chest tube, extraction of cataract, laminectomy PREVIOUS FUNCTIONAL STATUS/SOCIAL/FAMILY SUPPORTS:: Laney resided most of her life in [place]. She moved to [place] a few years ago to be with her son, JOSEPHINE and grandchildren who reside in [place], [place]. About a year ago she moved into her own apartment in [place], [place]. She has a car but is unable to safely exit her home. Her son, Stanley Blount is a produce department supervisor preacher at [employer] which she also attends. She reports friend from the episcopal and her son help with her errands and ADLs as she is unable to ambulate long distances due to end stage emphezema. She manages most of her ADLs independently in her home setting. CURRENT FUNCTIONAL STATUS:: Laney is lying in bed in the ICU when CM meets with her. She is quite pleasant in interaction and forthcoming with information. ADVANCE DIRECTIVES:: None on file at [facility]. Has patient been provided with information about the portal?: No Did the patient sign up for the portal?: No CODE STATUS:: DNR/DNI INSURANCE COVERAGE / FINANCIAL ISSUES:: Medicaid. Medicare CURRENT HOME/COMMUNITY SERVICES/EQUIPMENT:: Oxygen PRN, O2 sat monitor. PRIMARY CARE PHYSICIAN:: Ralph Rahman. POTENTIAL DISCHARGE NEEDS:: Referrals for MOW, Options Counselor, LTC Medicaid Moderate Needs Homemaker services, [facility]. PATIENT/FAMILY EDUCATION NEEDS:: Review of community based supports-additional resources. ANTICIPATED BARRIERS TO DISCHARGE:: None identified at this time. TRANSPORTATION:: Via private vehicle with family or a friend. PLAN:: Laney will return home when ready per MD. CM faxed referral to [facility] for Options counseling, MOW, and Moderate Homemaker services. CM called [facility] and arranged for new service support. Laney will resume home O2 and follow up with her PCP, and Chronic Sql Analyst; Nancy Heath. She will transport via private vehicle with family or a friend.
--- NOTE | 2018-03-31 16:50 | INITIAL_ITS ---
Care Management Initial Assess REASON FOR HOSPITALIZATION:: Pneumonia, Hypoxia PAST MEDICAL HISTORY/PAST SURGICAL HISTORY:: Appendectomy, Chest tube, extraction of cataract, laminectomy PREVIOUS FUNCTIONAL STATUS/SOCIAL/FAMILY SUPPORTS:: Laney resided most of her life in [place]. She moved to [place] a few years ago to be with her son, JOSEPHINE and grandchildren who reside in [place], [place]. About a year ago she moved into her own apartment in [place], [place]. She has a car but is unable to safely exit her home. Her son, Stanley Blount is a upholstery department supervisor preacher at [employer] which she also attends. She reports friend from the episcop[employer] and her son help with her errands and ADLs as she is unable to ambulate long distances due to end stage emphezema. She manages most of her ADLs independently in her home setting. CURRENT FUNCTIONAL STATUS:: Laney is lying in bed in the ICU when CM meets with her. She is quite pleasant in interaction and forthcoming with information. ADVANCE DIRECTIVES:: None on file at [facility]. Has patient been provided with information about the portal?: No Did the patient sign up for the portal?: No CODE STATUS:: DNR/DNI INSURANCE COVERAGE / FINANCIAL ISSUES:: Medicaid. Medicare CURRENT HOME/COMMUNITY SERVICES/EQUIPMENT:: Oxygen PRN, O2 sat monitor. PRIMARY CARE PHYSICIAN:: Ralph Rahman. POTENTIAL DISCHARGE NEEDS:: Referrals for MOW, Options Counselor, LTC Medicaid Moderate Needs Homemaker services, [facility]. PATIENT/FAMILY EDUCATION NEEDS:: Review of community based supports-additional resources. ANTICIPATED BARRIERS TO DISCHARGE:: None identified at this time. TRANSPORTATION:: Via private vehicle with family or a friend. PLAN:: Laney will return home when ready per MD. CM faxed referral to [facility] for Options counseling, MOW, and Moderate Homemaker services. CM called [facility] and arranged for new service support. Laney will resume home O2 and follow up with her PCP, and Chronic Filter Tip Catcher; Nancy Heath. She will transport via private vehicle with family or a friend.
[2018-03-31] MEDS: Enoxaparin 40 MG/0.4 ML SYR SC (18:43)
[2018-03-31] MEDS: Metoprolol 12.5 MG TAB PO (19:45)
[2018-03-31] MEDS: Cyclobenzaprine 10 MG TAB 5 MG PO (21:50)
[2018-04-01] VITALS (33 sets, daily range): BP systolic 102–134; BP diastolic 50–69; PULSE 64–101; RESP 11–20; TEMP 36.2–37; O2SAT 84–98
[2018-04-01] MEDS: oxyCODONE 5 MG TAB PO ×4 (00:52→18:37)
[2018-04-01 07:18] LABS: Abs Immature Grans 0.03 k/cumm (0.0-0.09); Absolute Basophil Count 0.01 k/cumm (0.0-0.2); Absolute Eosinophil Count 0.01 k/cumm (0.0-0.7); Absolute Monocyte Count 0.73 k/cumm (0.11-0.7); Absolute Neutrophil Count 11.93 k/cumm (1.2-6.7); Basophils % 0.1; Eosinophils % 0.1; HCT 37.2 % (36.0-46.0); HGB 11.5 g/dL (12.0-15.5); Immature Grans % 0.2; Lymphocytes % 7.3; Mean Corp. HGB Concentration 30.9 g/dL (32.0-36.0); Mean Corpuscular Hemoglobin 29.3 pg (27.0-33.0); Mean Corpuscular Volume 94.9 fL (80-95); Mean Platelet Volume 9.5 fL (8.0-11.0); Monocytes % 5.3; Platelet Count 237 x1000/uL (130-400); RBC 3.92 m/cumm (4.00-5.20); RBC Distribution Width 14.9 % (11.7-14.6); White Blood Cell Count 13.71 k/cumm (4.4-10.8)
[2018-04-01 07:25] LABS: Anion Gap 8.2 mmol/L (3-11); BUN 8 mg/dL (7-18); CO2 27.8 mmol/L (21.0-32.0); CREATININE 0.66 mg/dL (0.55-1.02); Calcium 8.5 mg/dL (8.5-10.1); Chloride 105 mmol/L (98-107); Glucose 124 mg/dL (70-100); Magnesium 1.9 mg/dL (1.8-2.4); Potassium 3.8 mmol/L (3.5-5.1); Sodium 141 mmol/L (136-145)
[2018-04-01] MEDS: Metoprolol 12.5 MG TAB PO ×2 (09:15→20:05)
[2018-04-01] MEDS: Sertraline 50 MG TAB 100 MG PO (09:15)
[2018-04-01] MEDS: Benzonatate 100 MG CAP 200 MG PO ×3 (09:15→20:03)
[2018-04-01] MEDS: Pantoprazole 40 MG VIAL IVP (09:16)
[2018-04-01] MEDS: Normal Saline Flush 10 ML SYR ×5 (09:17→15:50)
[2018-04-01] MEDS: Budesonide 0.5 MG/2 ML UPD VIAL UPD ×2 (09:36→20:04)
[2018-04-01] MEDS: Umeclidinium 7 CAP INHALER 1 CAP IH (09:42)
--- NOTE | 2018-04-01 09:47 | PGE_ITS ---
Date of Service Date of service: 04/01/18 Time of Service: 09:34 Assessment and Plan (1) Bacterial pneumonia: Current visit: No Status: Acute Community-acquired pneumonia with no recent antibiotic use or hospitalizations. Initiated on Azithromycin and Ceftriaxone - now day #3. Blood culture no growth to date and sputum culture growing normal ailyn. Influenza screen also negative. Given improvement, I do not think there is a role for adding anti-influenza treatment at this point. Mrs. Stephens presented with a fever, tachypnea, tachycardia, hypotension, elevated WBC consistent with sepsis, but with a normal Lactic Acid, normal creatinine and LFTs, normal platelet count, and no evidence of acute respiratory failure. Also reported hypotension to be chronic and essentially unchanged. She has now stabilized and we can come off of IV fluids. She can go to floor status if she does well off the fluids. (2) Chronic emphysema syndrome: Current visit: No Status: Chronic No apparent acute exacerbation. Initiated on IV Steroids due to current pneumonia and concurrent hypoxia -continue weaning today. Continue aggressive duonebs, inhaled budesonide, and prn Xopenex as well. Did talk to the patient and reviewed pulmonology notes and PCP notes about her chronic regimen. She appears to be taking inhaled corticosteroid and long-acting beta agonist in nebulized as well as inhaler form. Looking at the pulmonology recommendations, she should be on the nebulized form rather than the Symbicort to the severity of her COPD. Especially given the increased risk of pneumonia with inhaled corticosteroids, and the uncertain benefit of taking multiple forms of these medications, will continue with nebulizers. (3) Chronic anxiety: Current visit: No Status: Chronic Continue SSRI and home Clonazepam. (4) Cervical neck pain with evidence of disc disease: Current visit: No Status: Chronic This is a chronic issue. We will get a heating pad as she response to this as an outpatient. (5) DVT (deep venous thrombosis): Current visit: Yes Status: Acute SC Lovenox. Initiated PPI therapy for GI prophylaxis as well. Subjective Patient reports: feels better, tolerating a regular diet and afebrile; denies nausea and vomiting Interval history since last seen: Breathing has improved, feels much better than when she came in. Down to 1/2 liter supplemental O2, though she was completely off before she got sick. Fevers have resolved. She does have pain in her right neck and shoulder, but this is chronic for many years. She also has loose stools, but this is again chronic and not changed from her baseline. She confirms that she is taking both her nebulizers and the Symbicort and Incruse inhalers at home. Exam Narrative Exam Narrative: General: Thin woman who appears mildly uncomfortable and acutely ill but not toxic, AAOX3. HEENT: Continued but improved Dry Mucous Membranes Neck: Supple CV: Regular, borderline tachycardic at time of exam, S1S2, No rubs, murmurs, or gallops. Pulmonary: Crackles at the left base with decreased breath sounds. Minimal surrounding wheezing, otherwise clear to auscultation. Abdomen: + Bowel Sounds, soft, nontender, nondistended Vascular: No lower extremity edema Psych: Normal mood and affect. Objective Objective Clinical Data: Abnormal lab results 04/01/18 04/01/18 Range/Units 06:15 06:15 WBC 13.71 H D (4.4-10.8) k/cumm RBC 3.92 L (4.00-5.20) m/cumm Hgb 11.5 L (12.0-15.5) g/dL MCHC 30.9 L (32.0-36.0) g/dL RDW 14.9 H (11.7-14.6) % Absolute Neutrophils 11.93 H (1.2-6.7) k/cumm Absolute Lymphocytes 1.00 L (1.2-3.4) k/cumm Absolute Monocytes 0.73 H (0.11-0.7) k/cumm Glucose 124 H (70-100) mg/dL Vital Signs Temperature 36.5 C 04/01/18 04:05 Temperature Source Tympanic 04/01/18 04:05 Pulse 67 04/01/18 08:01 Pulse 67 04/01/18 08:20 Respiratory Rate 12 04/01/18 08:20 Respiratory Effort Short of Breath 04/01/18 04:05 Respiratory Depth Normal 04/01/18 04:05 Respiratory Pattern Normal 04/01/18 04:05 Blood Pressure 120/61 04/01/18 08:01 Blood Pressure Mean 75 04/01/18 08:01 Blood Pressure Position Supine 03/31/18 08:12 Pulse Oximetry 98 04/01/18 08:20 Oxygen Delivery Method Nasal Cannula 03/31/18 23:33 Oxygen Flow Rate 2 03/31/18 23:33 Fraction of Inspired Oxygen (FIO2) 96 03/31/18 17:00 Pain Level 10 04/01/18 00:52 Intake & Output 03/31/18 03/31/18 04/01/18 11:59 23:59 11:59 Intake Total 2741.667 / 3441.667 700 / 3441.667 400 / 400 Output Total 250 / 1150 900 / 1150 800 / 800 Balance 2491.667 / 2291.667 -200 / 2291.667 -400 / -400 Weight 53.5 kg 57.5 kg Intake: IV 2081.667 / 2381.667 300 / 2381.667 Oral 660 / 1060 400 / 1060 400 / 400 Output: Urine 250 / 1150 900 / 1150 800 / 800 Other: Urine Color Yellow Yellow Yellow Urine Appearance Clear Clear Clear Urine Odor Normal Normal None Comment No void at this time. Urine negative for blood via urine dip. Stool Size Small Stool Characteristics Liquid Soft Liquid Brown Voiding Methods Bedside Commode Bedside Commode Bedside Commode Laboratory Results WBC 13.71 k/cumm (4.4-10.8) H D 04/01/18 06:15 RBC 3.92 m/cumm (4.00-5.20) L 04/01/18 06:15 Hgb 11.5 g/dL (12.0-15.5) L 04/01/18 06:15 Hct 37.2 % (36.0-46.0) 04/01/18 06:15 MCV 94.9 fL (80-95) 04/01/18 06:15 MCH 29.3 pg (27.0-33.0) 04/01/18 06:15 MCHC 30.9 g/dL (32.0-36.0) L 04/01/18 06:15 RDW 14.9 % (11.7-14.6) H 04/01/18 06:15 Plt Count 237 x1000/uL (130-400) 04/01/18 06:15 MPV 9.5 fL (8.0-11.0) 04/01/18 06:15 Immature Gran % 0.2 12/15/18 06:15 Neutrophils % 87.0 04/01/18 06:15 Lymphocytes % 7.3 04/01/18 06:15 Monocytes % 5.3 04/01/18 06:15 Eosinophils % 0.1 04/01/18 06:15 Basophils % 0.1 04/01/18 06:15 Absolute Neutrophils 11.93 k/cumm (1.2-6.7) H 04/01/18 06:15 Absolute Lymphocytes 1.00 k/cumm (1.2-3.4) L 04/01/18 06:15 Absolute Monocytes 0.73 k/cumm (0.11-0.7) H 04/01/18 06:15 Absolute Eosinophils 0.01 k/cumm (0.0-0.7) 04/01/18 06:15 Absolute Basophils 0.01 k/cumm (0.0-0.2) 04/01/18 06:15 VBG pH 7.37 (7.32-7.43) 03/30/18 12:30 VBG pCO2 52 mm/Hg (34-47) H 03/30/18 12:30 VBG pO2 31 mm/Hg (28-44) 03/30/18 12:30 VBG HCO3 30 mmol/L (22-28) H 03/30/18 12:30 VBG Total CO2 27 mmol/L (22-29) 03/30/18 12:30 VBG O2 Saturation 61 % (70-80) L 03/30/18 12:30 VBG Base Excess 4.7 mmol/L (-3-3) H 03/30/18 12:30 Sodium 141 mmol/L (136-145) 04/01/18 06:15 Potassium 3.8 mmol/L (3.5-5.1) 04/01/18 06:15 Chloride 105 mmol/L (98-107) 04/01/18 06:15 Carbon Dioxide 27.8 mmol/L (21.0-32.0) 04/01/18 06:15 Anion Gap 8.2 mmol/L (3-11) 04/01/18 06:15 BUN 8 mg/dL (7-18) 04/01/18 06:15 Creatinine 0.66 mg/dL (0.55-1.02) 04/01/18 06:15 Estimated GFR/1.73 m2 >= 60.00 (mL/min/1.73m2) 04/01/18 06:15 Glucose 124 mg/dL (70-100) H 04/01/18 06:15 Lactate 1.1 mmol/L (0.6-1.4) 03/30/18 12:30 Calcium 8.5 mg/dL (8.5-10.1) 04/01/18 06:15 Magnesium 1.9 mg/dL (1.8-2.4) 04/01/18 06:15 Total Bilirubin 0.7 mg/dL (0.2-1.0) 03/30/18 12:30 AST 17 U/L (15-37) 03/30/18 12:30 ALT 27 U/L (12-78) 03/30/18 12:30 Alkaline Phosphatase 97 U/L (46-116) 03/30/18 12:30 Troponin I < 0.02 ng/mL (0.00-0.06) 03/30/18 12:30 Total Protein 7.7 g/dL (6.4-8.2) 03/30/18 12:30 Albumin 3.5 g/dL (3.4-5.0) 03/30/18 12:30 Urine Color Yellow (Yellow) 03/30/18 23:15 Urine Clarity Clear 03/30/18 23:15 Urine pH 5.5 (5-8) 03/30/18 23:15 Ur Specific [place] 1.010 (1.005-1.025) 03/30/18 23:15 Urine Protein Negative mg/dL (Negative) 03/30/18 23:15 Urine Ketones Negative mg/dL (Negative) 03/30/18 23:15 Urine Blood Trace-lysed (Negative) H 03/30/18 23:15 Urine Nitrite Negative (Negative) 03/30/18 23:15 Urine Bilirubin Negative (Negative) 03/30/18 23:15 Urine Urobilinogen 0.2 EU/dL (Up TO 0.2) 03/30/18 23:15 Ur Leukocyte Esterase Negative (Negative) 03/30/18 23:15 Urine RBC 0-2 (0-2) 03/30/18 23:15 Urine WBC 0-2 HPF (0-5) 03/30/18 23:15 Ur Epithelial Cells Rare HPF (Negative) 03/30/18 23:15 Urine Crystals Negative HPF (Negative) 03/30/18 23:15 Urine Bacteria Rare HPF (Negative) 03/30/18 23:15 Urine Casts Negative LPF (Negative) 03/30/18 23:15 Urine Mucus Negative (Negative) 03/30/18 23:15 Ur Culture Indicated? No 03/30/18 23:15 Urine Glucose 500 mg/dL (Negative) H 03/30/18 23:15
[2018-04-01] MEDS: AZITHROMYCIN 500 MG in Normal Saline 250 ML 166 MG IVPB (14:37)
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
[2018-04-01] MEDS: Normal Saline 500 ML 50 ML IV (15:45)
[2018-04-01] MEDS: Normal Saline Flush 10 ML SYR IVP ×2 (16:55→17:18)
[2018-04-01] MEDS: Enoxaparin 40 MG/0.4 ML SYR SC (18:18)
[2018-04-01] MEDS: guaiFENesin/D-METHORPHAN HB 5 ML CUP 10 ML PO (19:02)
[2018-04-01] MEDS: Acetaminophen 325 MG TAB PO (20:04)
[2018-04-01] MEDS: clonazePAM 1 MG TAB PO ×2 (22:03)
[2018-04-01] MEDS: Cyclobenzaprine 10 MG TAB 5 MG PO (22:04)
[2018-04-02] VITALS (23 sets, daily range): BP systolic 109–136; BP diastolic 53–76; PULSE 65–83; RESP 12–25; TEMP 35.7–37.3; O2SAT 93–96
[2018-04-02 07:43] LABS: Abs Immature Grans 0.06 k/cumm (0.0-0.09); Absolute Basophil Count 0.01 k/cumm (0.0-0.2); Absolute Lymphocyte Count 1.23 k/cumm (1.2-3.4); Absolute Monocyte Count 0.71 k/cumm (0.11-0.7); Absolute Neutrophil Count 8.19 k/cumm (1.2-6.7); Basophils % 0.1; HCT 37.8 % (36.0-46.0); HGB 12.1 g/dL (12.0-15.5); Immature Grans % 0.6; Lymphocytes % 12.1; Mean Corpuscular Hemoglobin 30.6 pg (27.0-33.0); Mean Corpuscular Volume 95.5 fL (80-95); Mean Platelet Volume 9.7 fL (8.0-11.0); Neutrophils % 80.2; Platelet Count 236 x1000/uL (130-400); RBC 3.96 m/cumm (4.00-5.20); RBC Distribution Width 14.9 % (11.7-14.6)
[2018-04-02] MEDS: Sertraline 50 MG TAB 100 MG PO (08:17)
[2018-04-02] MEDS: Metoprolol 12.5 MG TAB PO ×2 (08:17→20:54)
[2018-04-02] MEDS: Benzonatate 100 MG CAP 200 MG PO ×3 (08:17→20:54)
[2018-04-02] MEDS: Pantoprazole 40 MG VIAL IVP (08:18)
[2018-04-02] MEDS: Normal Saline Flush 10 ML SYR IVP ×2 (08:18→20:55)
[2018-04-02] MEDS: Umeclidinium 7 CAP INHALER 1 CAP IH (08:46)
[2018-04-02] MEDS: Budesonide 0.5 MG/2 ML UPD VIAL UPD ×2 (08:46→20:56)
--- NOTE | 2018-04-02 09:12 | PDOC.CMPRO ---
Care Management Progress Note S/O: Laney was sitting up in bed watching TV. Alert and cheerful this morning. Stated she is feeling much better. A: 72 yo female admitted for CAP, Hypoxia P: Return to her apartment in [place] when medically cleared for discharge. Son will transport.
[2018-04-02] MEDS: Azithromycin 250 MG TAB PO (09:23)
[2018-04-02] MEDS: Acetaminophen 325 MG TAB PO ×2 (09:26→16:06)
[2018-04-02] MEDS: oxyCODONE 5 MG TAB PO ×3 (09:27→20:54)
--- NOTE | 2018-04-02 09:52 | PGE_ITS ---
Date of Service Date of service: 04/02/18 Time of Service: 09:43 Assessment and Plan (1) Bacterial pneumonia: Current visit: No Status: Acute Community-acquired pneumonia being treated with azithromycin and Ceftriaxone - now day #4, much improved after initial presentation screened for early sepsis. We will change azithromycin to p.o. Blood culture no growth to date and sputum culture growing normal ailyn and influenza negative. Will transition to floor status today. He has home oxygen so she may be able to go home tomorrow if she continues to improve. (2) Chronic emphysema syndrome: Current visit: No Status: Chronic Transition to oral prednisone from IV Solu-Medrol today. Continue aggressive duonebs, inhaled budesonide, and prn Xopenex as well. Regarding ongoing care, per pulmonology recommendations she should be on the nebulized form rather than the Symbicort to the severity of her COPD. Especially given the increased risk of pneumonia with inhaled corticosteroids, and the uncertain benefit of taking multiple forms of these medications, will continue with nebulizers. (3) Chronic anxiety: Current visit: No Status: Chronic Continue SSRI and home Clonazepam. (4) Cervical neck pain with evidence of disc disease: Current visit: No Status: Chronic This is a chronic issue. Continue heating pad and pain medication. (5) DVT (deep venous thrombosis): Current visit: Yes Status: Acute SC Lovenox. Initiated PPI therapy for GI prophylaxis as well. Subjective Patient reports: no new complaints, feels better and tolerating a regular diet; denies diarrhea, vomiting and fever Interval history since last seen: Breathing has improved. She feels like she is getting closer to her baseline. She still has a cough and feels like she has sputum she can get out. Pain is little better with pain medication and she was able to sleep last night. Exam Narrative Exam Narrative: General: Thin woman who appears more comfortable, sitting up and eating breakfast, speaking in full sentences. HEENT: Moist mucous Membranes Neck: Supple, trachea midline CV: Regular, nl S1S2, No rubs, murmurs, or gallops. Pulmonary: Diffusely decreased breath sounds with minimal expiratory and expiratory wheezing, no rales Abdomen: + Bowel Sounds, soft, nontender, nondistended Extremities: No cyanosis or edema, nontender Psych: Normal mood and affect. Objective Objective Clinical Data: Abnormal lab results 12/16/18 Range/Units 06:10 RBC 3.96 L (4.00-5.20) m/cumm MCV 95.5 H (80-95) fL RDW 14.9 H (11.7-14.6) % Absolute Neutrophils 8.19 H (1.2-6.7) k/cumm Absolute Monocytes 0.71 H (0.11-0.7) k/cumm Vital Signs Temperature 37 C 04/02/18 03:30 Temperature Source Temporal Artery Scan 04/02/18 03:30 Pulse 68 04/02/18 08:01 Pulse 65 04/02/18 08:01 Respiratory Rate 15 04/02/18 08:01 Respiratory Effort 04/02/18 03:30 Respiratory Depth Normal 04/02/18 03:30 Respiratory Pattern Normal 04/02/18 03:30 Blood Pressure 123/65 04/02/18 08:01 Blood Pressure Mean 79 04/02/18 08:01 Blood Pressure Position Supine 04/02/18 03:30 Pulse Oximetry 93 L 04/02/18 08:01 Oxygen Delivery Method Nasal Cannula 04/02/18 03:30 Oxygen Flow Rate 1 04/02/18 03:30 Fraction of Inspired Oxygen (FIO2) 96 03/31/18 17:00 Pain Level 8 04/02/18 09:27 Intake & Output 04/01/18 04/01/18 04/02/18 11:59 23:59 11:59 Intake Total 1898.333 / 4087.000 2188.667 / 4087.000 930 / 930 Output Total 1150 / 2925 1775 / 2925 1150 / 1150 Balance 748.333 / 1162.000 413.667 / 1162.000 -220 / -220 Weight 57.5 kg 58.2 kg Intake: IV 938.333 / 1347.000 408.667 / 1347.000 20 / 20 Oral 960 / 2740 1780 / 2740 910 / 910 Output: Urine 1150 / 2800 1650 / 2800 1150 / 1150 Stool 125 / 125 Other: Urine Color Yellow Yellow Yellow Urine Appearance Clear Clear Clear Urine Odor None None Normal Comment mixed loose stool mixed with loose stool Stool Size Small Stool Characteristics Liquid Voiding Methods Bedside Commode Bedside Commode Bedside Commode Laboratory Results WBC 10.20 k/cumm (4.4-10.8) 04/02/18 06:10 RBC 3.96 m/cumm (4.00-5.20) L 04/02/18 06:10 Hgb 12.1 g/dL (12.0-15.5) 04/02/18 06:10 Hct 37.8 % (36.0-46.0) 04/02/18 06:10 MCV 95.5 fL (80-95) H 04/02/18 06:10 MCH 30.6 pg (27.0-33.0) 04/02/18 06:10 MCHC 32.0 g/dL (32.0-36.0) 04/02/18 06:10 RDW 14.9 % (11.7-14.6) H 04/02/18 06:10 Plt Count 236 x1000/uL (130-400) 04/02/18 06:10 MPV 9.7 fL (8.0-11.0) 04/02/18 06:10 Immature Gran % 0.6 04/02/18 06:10 Neutrophils % 80.2 04/02/18 06:10 Lymphocytes % 12.1 04/02/18 06:10 Monocytes % 7.0 04/02/18 06:10 Eosinophils % 0.0 04/02/18 06:10 Basophils % 0.1 04/02/18 06:10 Absolute Neutrophils 8.19 k/cumm (1.2-6.7) H 04/02/18 06:10 Absolute Lymphocytes 1.23 k/cumm (1.2-3.4) 04/02/18 06:10 Absolute Monocytes 0.71 k/cumm (0.11-0.7) H 04/02/18 06:10 Absolute Eosinophils 0.00 k/cumm (0.0-0.7) 04/02/18 06:10 Absolute Basophils 0.01 k/cumm (0.0-0.2) 04/02/18 06:10 VBG pH 7.37 (7.32-7.43) 03/30/18 12:30 VBG pCO2 52 mm/Hg (34-47) H 03/30/18 12:30 VBG pO2 31 mm/Hg (28-44) 03/30/18 12:30 VBG HCO3 30 mmol/L (22-28) H 03/30/18 12:30 VBG Total CO2 27 mmol/L (22-29) 03/30/18 12:30 VBG O2 Saturation 61 % (70-80) L 03/30/18 12:30 VBG Base Excess 4.7 mmol/L (-3-3) H 03/30/18 12:30 Sodium 141 mmol/L (136-145) 04/01/18 06:15 Potassium 3.8 mmol/L (3.5-5.1) 04/01/18 06:15 Chloride 105 mmol/L (98-107) 04/01/18 06:15 Carbon Dioxide 27.8 mmol/L (21.0-32.0) 04/01/18 06:15 Anion Gap 8.2 mmol/L (3-11) 04/01/18 06:15 BUN 8 mg/dL (7-18) 04/01/18 06:15 Creatinine 0.66 mg/dL (0.55-1.02) 04/01/18 06:15 Estimated GFR/1.73 m2 >= 60.00 (mL/min/1.73m2) 04/01/18 06:15 Glucose 124 mg/dL (70-100) H 04/01/18 06:15 Lactate 1.1 mmol/L (0.6-1.4) 03/30/18 12:30 Calcium 8.5 mg/dL (8.5-10.1) 04/01/18 06:15 Magnesium 1.9 mg/dL (1.8-2.4) 04/01/18 06:15 Total Bilirubin 0.7 mg/dL (0.2-1.0) 03/30/18 12:30 AST 17 U/L (15-37) 03/30/18 12:30 ALT 27 U/L (12-78) 03/30/18 12:30 Alkaline Phosphatase 97 U/L (46-116) 03/30/18 12:30 Troponin I < 0.02 ng/mL (0.00-0.06) 03/30/18 12:30 Total Protein 7.7 g/dL (6.4-8.2) 03/30/18 12:30 Albumin 3.5 g/dL (3.4-5.0) 03/30/18 12:30 Urine Color Yellow (Yellow) 03/30/18 23:15 Urine Clarity Clear 03/30/18 23:15 Urine pH 5.5 (5-8) 03/30/18 23:15 Ur Specific [place] 1.010 (1.005-1.025) 03/30/18 23:15 Urine Protein Negative mg/dL (Negative) 03/30/18 23:15 Urine Ketones Negative mg/dL (Negative) 03/30/18 23:15 Urine Blood Trace-lysed (Negative) H 03/30/18 23:15 Urine Nitrite Negative (Negative) 03/30/18 23:15 Urine Bilirubin Negative (Negative) 03/30/18 23:15 Urine Urobilinogen 0.2 EU/dL (Up TO 0.2) 03/30/18 23:15 Ur Leukocyte Esterase Negative (Negative) 03/30/18 23:15 Urine RBC 0-2 (0-2) 03/30/18 23:15 Urine WBC 0-2 HPF (0-5) 03/30/18 23:15 Ur Epithelial Cells Rare HPF (Negative) 03/30/18 23:15 Urine Crystals Negative HPF (Negative) 03/30/18 23:15 Urine Bacteria Rare HPF (Negative) 03/30/18 23:15 Urine Casts Negative LPF (Negative) 03/30/18 23:15 Urine Mucus Negative (Negative) 03/30/18 23:15 Ur Culture Indicated? No 03/30/18 23:15 Urine Glucose 500 mg/dL (Negative) H 03/30/18 23:15
--- NOTE | 2018-04-02 15:04 | CMPROGNOTE_ITS ---
Care Management Progress Note S/O: Laney was sitting up in bed watching TV. Alert and cheerful this morning. Stated she is feeling much better. A: 72 yo female admitted for CAP, Hypoxia P: Return to her apartment in [place] when medically cleared for discharge. Son will transport.
[2018-04-02] MEDS: Enoxaparin 40 MG/0.4 ML SYR SC (17:47)
[2018-04-02] MEDS: clonazePAM 1 MG TAB PO (22:43)
[2018-04-02] MEDS: Cyclobenzaprine 10 MG TAB 5 MG PO (22:43)
--- NOTE | 2018-04-03 01:39 | NUR.NOTE ---
Nursing Note: 7P to 7A shift: Pt received on de leon's position on bed, with O2 at 2L/NC. declared of having SOB on exertion. Lung sounds diminished throughout. Medicated with Oxycodone at 0 hrs. and with some relief. Then Clonazepam and fleril given at 0 hrs. and effective. Latest O2 Sat is 94%. Call lights at reach.
[2018-04-03] MEDS: oxyCODONE 5 MG TAB PO ×2 (07:04→11:11)
[2018-04-03] MEDS: Umeclidinium 7 CAP INHALER 1 CAP IH (07:13)
[2018-04-03] MEDS: Budesonide 0.5 MG/2 ML UPD VIAL UPD ×2 (07:14→19:48)
[2018-04-03 07:15] VITALS: O2SAT 93
[2018-04-03 07:40] VITALS: BP 118/67; PULSE 74; RESP 17; TEMP 36.1; O2SAT 90
[2018-04-03] MEDS: Azithromycin 250 MG TAB PO (09:02)
[2018-04-03] MEDS: Sertraline 50 MG TAB 100 MG PO (09:02)
[2018-04-03] MEDS: Metoprolol 12.5 MG TAB PO ×2 (09:02→19:47)
[2018-04-03] MEDS: Benzonatate 100 MG CAP 200 MG PO ×3 (09:03→19:48)
[2018-04-03] MEDS: Acetaminophen 325 MG TAB PO ×2 (09:03→14:06)
--- NOTE | 2018-04-03 11:41 | W.PM.PROGNOT ---
Date of Service Date of service: 04/03/18 Time of Service: 13:18 Assessment and Plan (1) Bacterial pneumonia: Current visit: No Status: Acute Community-acquired pneumonia being treated with azithromycin and Ceftriaxone - now day #5, much improved after initial presentation but still not feeling back to her baseline. We did change the IV steroids and antibiotics to oral, but I do not see clear signs of worsening infection so I will continue these. See below. (2) Chronic emphysema syndrome: Current visit: No Status: Chronic Continue with oral prednisone as well as aggressive duonebs, inhaled budesonide, and prn Xopenex. We will try adding mucolytic to help her mobilize sputum, she is well hydrated. Regarding ongoing care, per pulmonology recommendations she should be on the nebulized form rather than the Symbicort to the severity of her COPD. Especially given the increased risk of pneumonia with inhaled corticosteroids, and the uncertain benefit of taking multiple forms of these medications, will clarify her regimen prior to discharge with only one inhaled corticosteroid. (3) Chronic anxiety: Current visit: No Status: Chronic Continue SSRI and home Clonazepam. (4) Cervical neck pain with evidence of disc disease: Current visit: No Status: Chronic This is a chronic issue, change. Continue heating pad and pain medication. (5) DVT (deep venous thrombosis): Current visit: Yes Status: Acute SC Lovenox. Initiated PPI therapy for GI prophylaxis as well. Subjective Patient reports: tolerating a regular diet and voiding w/o difficulty; denies diarrhea, nausea, vomiting and fever Interval history since last seen: Patient states shortness of breath is not any better today. She denies fever or chest pain or palpitations. She has the same cough and feels like she cannot get everything up. Her right neck pain is also bothering her today. She is still quite short of breath when she up in the room, does not feel comfortable going home. Exam Narrative Exam Narrative: General: Thin woman who is holding heat pack to right trapezius, sitting up, speaking in full sentences. HEENT: Moist mucous Membranes Neck: Supple, trachea midline CV: Regular, nl S1S2, No rubs, murmurs, or gallops. Pulmonary: Diffusely decreased breath sounds with minimal expiratory and expiratory wheezing, no rales Abdomen: + Bowel Sounds, soft, nontender, nondistended Extremities: No cyanosis or edema, nontender Psych: Normal mood and affect. Objective Objective Clinical Data: Vital Signs Temperature 36.1 C L 04/03/18 07:40 Temperature Source Tympanic 04/03/18 07:40 Pulse 74 04/03/18 07:40 Pulse Rhythm Regular 04/03/18 07:26 Pulse 73 04/02/18 10:01 Respiratory Rate 17 04/03/18 07:40 Respiratory Effort Non-Labored 04/03/18 07:26 Respiratory Depth Normal 04/03/18 07:26 Respiratory Pattern Normal 04/03/18 07:26 Blood Pressure 118/67 04/03/18 07:40 Blood Pressure Mean 72 04/02/18 12:00 Blood Pressure Position Supine 04/02/18 08:00 Pulse Oximetry 90 L 04/03/18 07:40 Oxygen Delivery Method Nasal Cannula 04/03/18 07:40 Oxygen Flow Rate 2 04/03/18 07:40 Fraction of Inspired Oxygen (FIO2) 96 03/31/18 17:00 Pain Level 7 04/03/18 11:11 Comment 04/02/18 12:50 Intake & Output 04/02/18 04/02/18 04/03/18 11:59 23:59 11:59 Intake Total 930 / 2070 1140 / 2070 790 / 790 Output Total 1600 / 2700 1100 / 2700 1050 / 1050 Balance -670 / -630 40 / -630 -260 / -260 Weight 58.2 kg Intake: IV 20 / 80 60 / 80 Oral 0 / 1989 1080 / 1989 790 / 790 Output: Urine 1600 / 2700 1100 / 2700 1050 / 1050 Other: Urine Color Yellow Yellow Yellow Urine Appearance Clear Clear Clear Urine Odor Normal Normal None Comment mixed with loose stool. Void x1 in the toilet. Stool Size Large Stool Characteristics Soft Liquid Voiding Methods Bedside Commode Toilet Toilet Laboratory Results WBC 10.20 k/cumm (4.4-10.8) 04/02/18 06:10 RBC 3.96 m/cumm (4.00-5.20) L 04/02/18 06:10 Hgb 12.1 g/dL (12.0-15.5) 04/02/18 06:10 Hct 37.8 % (36.0-46.0) 04/02/18 06:10 MCV 95.5 fL (80-95) H 04/02/18 06:10 MCH 30.6 pg (27.0-33.0) 04/02/18 06:10 MCHC 32.0 g/dL (32.0-36.0) 04/02/18 06:10 RDW 14.9 % (11.7-14.6) H 04/02/18 06:10 Plt Count 236 x1000/uL (130-400) 04/02/18 06:10 MPV 9.7 fL (8.0-11.0) 04/02/18 06:10 Immature Gran % 0.6 04/02/18 06:10 Neutrophils % 80.2 04/02/18 06:10 Lymphocytes % 12.1 04/02/18 06:10 Monocytes % 7.0 04/02/18 06:10 Eosinophils % 0.0 04/02/18 06:10 Basophils % 0.1 04/02/18 06:10 Absolute Neutrophils 8.19 k/cumm (1.2-6.7) H 04/02/18 06:10 Absolute Lymphocytes 1.23 k/cumm (1.2-3.4) 04/02/18 06:10 Absolute Monocytes 0.71 k/cumm (0.11-0.7) H 04/02/18 06:10 Absolute Eosinophils 0.00 k/cumm (0.0-0.7) 04/02/18 06:10 Absolute Basophils 0.01 k/cumm (0.0-0.2) 04/02/18 06:10 VBG pH 7.37 (7.32-7.43) 03/30/18 12:30 VBG pCO2 52 mm/Hg (34-47) H 03/30/18 12:30 VBG pO2 31 mm/Hg (28-44) 03/30/18 12:30 VBG HCO3 30 mmol/L (22-28) H 03/30/18 12:30 VBG Total CO2 27 mmol/L (22-29) 03/30/18 12:30 VBG O2 Saturation 61 % (70-80) L 03/30/18 12:30 VBG Base Excess 4.7 mmol/L (-3-3) H 03/30/18 12:30 Sodium 141 mmol/L (136-145) 04/01/18 06:15 Potassium 3.8 mmol/L (3.5-5.1) 04/01/18 06:15 Chloride 105 mmol/L (98-107) 04/01/18 06:15 Carbon Dioxide 27.8 mmol/L (21.0-32.0) 04/01/18 06:15 Anion Gap 8.2 mmol/L (3-11) 04/01/18 06:15 BUN 8 mg/dL (7-18) 04/01/18 06:15 Creatinine 0.66 mg/dL (0.55-1.02) 04/01/18 06:15 Estimated GFR/1.73 m2 >= 60.00 (mL/min/1.73m2) 04/01/18 06:15 Glucose 124 mg/dL (70-100) H 04/01/18 06:15 Lactate 1.1 mmol/L (0.6-1.4) 03/30/18 12:30 Calcium 8.5 mg/dL (8.5-10.1) 04/01/18 06:15 Magnesium 1.9 mg/dL (1.8-2.4) 04/01/18 06:15 Total Bilirubin 0.7 mg/dL (0.2-1.0) 03/30/18 12:30 AST 17 U/L (15-37) 03/30/18 12:30 ALT 27 U/L (12-78) 03/30/18 12:30 Alkaline Phosphatase 97 U/L (46-116) 03/30/18 12:30 Troponin I < 0.02 ng/mL (0.00-0.06) 03/30/18 12:30 Total Protein 7.7 g/dL (6.4-8.2) 03/30/18 12:30 Albumin 3.5 g/dL (3.4-5.0) 03/30/18 12:30 Urine Color Yellow (Yellow) 03/30/18 23:15 Urine Clarity Clear 03/30/18 23:15 Urine pH 5.5 (5-8) 03/30/18 23:15 Ur Specific [place] 1.010 (1.005-1.025) 03/30/18 23:15 Urine Protein Negative mg/dL (Negative) 03/30/18 23:15 Urine Ketones Negative mg/dL (Negative) 03/30/18 23:15 Urine Blood Trace-lysed (Negative) H 03/30/18 23:15 Urine Nitrite Negative (Negative) 03/30/18 23:15 Urine Bilirubin Negative (Negative) 03/30/18 23:15 Urine Urobilinogen 0.2 EU/dL (Up TO 0.2) 03/30/18 23:15 Ur Leukocyte Esterase Negative (Negative) 03/30/18 23:15 Urine RBC 0-2 (0-2) 03/30/18 23:15 Urine WBC 0-2 HPF (0-5) 03/30/18 23:15 Ur Epithelial Cells Rare HPF (Negative) 03/30/18 23:15 Urine Crystals Negative HPF (Negative) 03/30/18 23:15 Urine Bacteria Rare HPF (Negative) 03/30/18 23:15 Urine Casts Negative LPF (Negative) 03/30/18 23:15 Urine Mucus Negative (Negative) 03/30/18 23:15 Ur Culture Indicated? No 03/30/18 23:15 Urine Glucose 500 mg/dL (Negative) H 03/30/18 23:15
[2018-04-03] MEDS: Normal Saline Flush 10 ML SYR IVP ×2 (12:22→13:36)
[2018-04-03] MEDS: Normal Saline 500 ML 100 ML IV (12:24)
--- NOTE | 2018-04-03 14:24 | PDOC.CMPRO ---
Care Management Progress Note S/O: Laney was lying in bed when CM met with her. Her family, including her son, DIL and grandchildren were all in the room as well. Laney reported feeling tired and did not anticipate discharging today. She reported feeling weaker and requiring more time to recover. MD continues to adjust medications and monitor as Laney is now on orals, he reports she will only discharge on one inhaled corticosteroid. Laney remains pleasant in interaction and fully engaged with this marketing writer. CM reviewed discharge plan and recommended referrals; all of which Laney reported being in agreement. A: 72 year old female admitted to [facility] P: Laney will return home when ready per MD. CM faxed referral to [facility] for Options counseling, MOW, and Moderate Homemaker services. CM called [facility] and arranged for new service support. Laney will resume home O2 and follow up with her PCP, and Chronic Survey Chief; Nancy Heath. She will transport via private vehicle with family or a friend.
--- NOTE | 2018-04-03 15:20 | CHAPLAIN ---
Laney was just finishing up with the infusion team when I visited. We remembered each other from her previous admission. She lives alone in [place], and isn't happy about living alone. Previously she lived with her son, daughter in law and their three kids. 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 Her son is the co-charter driver of the [employer]. He also teachers at and is in the [employer]. According to Laney he is very attentive. Laney said her pneumonia hit her quickly and hard and after struggling for night alone, her son brought her to [facility]. She is feeling better, she said, but not yet up to going home alone.
[2018-04-03 15:31] VITALS: BP 119/72; PULSE 69; RESP 14; TEMP 37.4; O2SAT 92
--- NOTE | 2018-04-03 15:54 | CMPROGNOTE_ITS ---
Care Management Progress Note S/O: Laney was lying in bed when CM met with her. Her family, including her son, DIL and grandchildren were all in the room as well. Laney reported feeling tired and did not anticipate discharging today. She reported feeling weaker and requiring more time to recover. MD continues to adjust medications and monitor as Laney is now on orals, he reports she will only discharge on one inhaled corticosteroid. Laney remains pleasant in interaction and fully engaged with this typewriter assembly and parts inspector. CM reviewed discharge plan and recommended referrals; all of which Laney reported being in agreement. A: 72 year old female admitted to [facility] P: Laney will return home when ready per MD. CM faxed referral to [facility] for Options counseling, MOW, and Moderate Homemaker services. CM called [facility] and arranged for new service support. Laney will resume home O2 and follow up with her PCP, and Chronic Reduction Furnace Operator; Nancy Heath. She will transport via private vehicle with family or a friend.
[2018-04-03] MEDS: Enoxaparin 40 MG/0.4 ML SYR SC (17:41)
[2018-04-03] MEDS: clonazePAM 1 MG TAB PO (18:50)
[2018-04-03 19:30] VITALS: BP 134/73; PULSE 74; RESP 18; TEMP 36.4; O2SAT 93
[2018-04-03] MEDS: guaiFENesin 600 MG TABCR PO (19:47)
[2018-04-03] MEDS: Cyclobenzaprine 10 MG TAB 5 MG PO (22:51)
[2018-04-03 23:15] VITALS: BP 133/78; PULSE 54; RESP 16; TEMP 36.2; O2SAT 96
[2018-04-04 07:30] LABS: Abs Immature Grans 0.16 k/cumm (0.0-0.09); Absolute Basophil Count 0.01 k/cumm (0.0-0.2); Absolute Eosinophil Count 0.06 k/cumm (0.0-0.7); Absolute Lymphocyte Count 1.98 k/cumm (1.2-3.4); Absolute Monocyte Count 0.81 k/cumm (0.11-0.7); Absolute Neutrophil Count 5.44 k/cumm (1.2-6.7); Basophils % 0.1; Eosinophils % 0.7; HGB 14.2 g/dL (12.0-15.5); Immature Grans % 1.9; Lymphocytes % 23.4; Mean Corp. HGB Concentration 31.6 g/dL (32.0-36.0); Mean Corpuscular Hemoglobin 29.8 pg (27.0-33.0); Mean Corpuscular Volume 94.5 fL (80-95); Mean Platelet Volume 9.7 fL (8.0-11.0); Monocytes % 9.6; Neutrophils % 64.3; Platelet Count 212 x1000/uL (130-400); RBC 4.76 m/cumm (4.00-5.20); RBC Distribution Width 14.5 % (11.7-14.6); White Blood Cell Count 8.46 k/cumm (4.4-10.8)
[2018-04-04 07:35] VITALS: BP 145/82; PULSE 72; RESP 18; TEMP 36.8; O2SAT 92
[2018-04-04] MEDS: Metoprolol 12.5 MG TAB PO ×2 (07:56→19:34)
[2018-04-04] MEDS: Benzonatate 100 MG CAP 200 MG PO ×3 (07:56→19:33)
[2018-04-04] MEDS: Normal Saline Flush 10 ML SYR IVP ×2 (07:56→11:47)
[2018-04-04] MEDS: Azithromycin 250 MG TAB PO (07:56)
[2018-04-04] MEDS: guaiFENesin 600 MG TABCR PO ×2 (07:57→19:34)
[2018-04-04] MEDS: Sertraline 50 MG TAB 100 MG PO (07:57)
[2018-04-04] MEDS: guaiFENesin/D-METHORPHAN HB 5 ML CUP 10 ML PO ×3 (08:03→22:15)
[2018-04-04] MEDS: oxyCODONE 5 MG TAB PO ×2 (08:03→17:15)
[2018-04-04] MEDS: Umeclidinium 7 CAP INHALER 1 CAP IH (08:58)
[2018-04-04] MEDS: Budesonide 0.5 MG/2 ML UPD VIAL UPD ×2 (08:58→19:34)
[2018-04-04 08:59] VITALS: O2SAT 95
[2018-04-04 11:14] VITALS: TEMP 37.2
[2018-04-04] MEDS: Acetaminophen 325 MG TAB PO (13:40)
[2018-04-04] MEDS: clonazePAM 1 MG TAB PO ×2 (13:40→22:15)
--- NOTE | 2018-04-04 14:15 | PT.INIE ---
Date of service: 04/04/18 Time of Service: 14:15 PT Notes Date: 04/04/2018 Referring Doctor: Renato Jang MD PT Orders: PT consult: One-time opinion assess for safe transfers, ambulation and need, if any for adaptive equipment Precautions: Standard PATIENT PROFILE/ADMITTING DIAGNOSIS: Patient is a 72 year old female admitted with pneumonia in setting of chronic obstructive pulmonary disease PMHX: s/p ORIF R distal femur fracture 05/10/[address] Raleigh Bob., Chronic obstructive pulmonary disease, chronic diarrhea, anxiety, double laminectomy, chronic low back pain with sciatica, mood disorder, urinary tract infections, appendectomy, hysterectomy and bleeding ulcer. Social History/Home Situation: Lives alone in an apartment, 2 steps to enter. Baseline mobility independent gait without assistive device, independent with ADL's. Family can provide front wheeled walker, commode, wheelchair and shower chair if needed and home setting. At this time patient does not use assistive devices. Equipment owned/DME: Patient has cane, family can provide FWW, commode, wheelchair and shower chair if needed. SUBJECTIVE: Patient lying in bed visiting with family member, agreeable to PT consult. OBJECTIVE: General Observation: 2L 02 nasal cannula Mental Status: A&Ox3 Pain: No complaints of pain Vital signs: 92% O2 on 2 L nasal cannula at rest, drops to 84% with gait on 2 L requiring recovery time and breathing to return to 92%. BED MOBILITY/TRANSFERS: Supine to Sit: Independent Sit to supine: Independent Sit to Stand: Independent Stand to Sit: Independent GAIT: Supervision without assistive device, 60 feet x2, 2 L O2 nasal cannula de-sats to 84% with gait, recovers to 92% with 5 minutes sitting rest break focusing on breathing techniques. Patient reports right lower extremity weakness from prior ORIF in April of this year, she defers use of cane or front wheel walker for gait support, stating her apartment is very small and she can furniture cruise . Patient is open to home physical therapy for lower extremity strengthening to reduce risk of falls due to lower extremity weakness status post ORIF. Patient returned to bed after gait session completed. BALANCE: Static sitting: Normal. Dynamic Sitting: Normal. Static Standing: Fair Dynamic Standing: Fair SPECIAL TESTS: Mobility Limitations Standardized Measure [facility] -PAC ?6 clicks? Basic Mobility Inpatient Short Form: raw score: 22 standardized score: 53.28 CMS score: 20.91% [facility] modifier: CJ INFORMED CONSENT/EDUCATION: Pt instructed in purpose of PT Consult and plan of care ASSESSMENT: Patient is a 72 year old female admitted with pneumonia in setting of s/p open reduction, internal fixation R distal femur fracture 05/10/17, chronic obstructive pulmonary disease, chronic diarrhea, anxiety and mood disorder, double laminectomy, chronic low back pain with sciatica. Patient demonstrates impairment level findings: decreased strength in bilateral shoulders due to rotator cuff weakness, decreased strength in right lower extremity status post ORIF, decreased dynamic standing balance due to right lower extremity weakness, decreased O2 sats with exertion requiring use of oxygen and pacing and energy conservation techniques with functional activities. Patient would benefit from use of cane or FWW with gait to reduce risk of falls, however patient defers assistive devices stating her apartment is too small and she can use furniture for support. Patient does have cane at home she can use as needed and family can provide front wheel walker if she chooses to use one. Patient is open to home PT for strengthening of lower extremities to improve gait stability, improve balance and reduce risk of falls and home setting. Patient appears to require O2, sats with with exertion dropping to 84% on 2 L nasal cannula with gait training with recovery O2 sats at 92% on 2 L per nasal cannula. Plan is discharged home setting, home PT recommended, patient defers DME. Impairments are contributing to the following functional limitations: AMPAC score 20.91% Patient is assessed as a *Low 99669 complexity based on the following: History: See above Examination: See above Presentation: Stable Decision Making: AMPAC score 20.91% GOALS Not applicable PLAN OF CARE/TREATMENT PLAN: PT eval only?one-time opinion per MD order DISCHARGE RECOMMENDATIONS: Home with home PT, does not require DME TREATMENT TIME/MINUTES/CODES: 25 minutes 1410 initial evaluation Codes in the area of walking mobility and moving around: Current status [id number] , projected status [id number] , discharge status GP [id number] AMPAC score 20.91% Rhoda Pruitt PT Disclaimer: This note was created using [employer] voice recognition software. It was reviewed for major content. However, there may be multiple small discrepancies and errors due to the voice recognition aspects of the software.
--- NOTE | 2018-04-04 14:28 | IN_ITS ---
Date of service: 04/04/18 Time of Service: 14:15 PT Notes Date: 04/04/2018 Referring Doctor: Renato Jang MD PT Orders: PT consult: One-time opinion assess for safe transfers, ambulation and need, if any for adaptive equipment Precautions: Standard PATIENT PROFILE/ADMITTING DIAGNOSIS: Patient is a 72 year old female admitted with pneumonia in setting of chronic obstructive pulmonary disease PMHX: s/p ORIF R distal femur fracture 05/10/[address] Raleigh Bob., Chronic obstructive pulmonary disease, chronic diarrhea, anxiety, double laminectomy, chronic low back pain with sciatica, mood disorder, urinary tract infections, appendectomy, hysterectomy and bleeding ulcer. Social History/Home Situation: Lives alone in an apartment, 2 steps to enter. Baseline mobility independent gait without assistive device, independent with ADL's. Family can provide front wheeled walker, commode, wheelchair and shower chair if needed and home setting. At this time patient does not use assistive devices. Equipment owned/DME: Patient has cane, family can provide FWW, commode, wheelchair and shower chair if needed. SUBJECTIVE: Patient lying in bed visiting with family member, agreeable to PT consult. OBJECTIVE: General Observation: 2L 02 nasal cannula Mental Status: A&Ox3 Pain: No complaints of pain Vital signs: 92% O2 on 2 L nasal cannula at rest, drops to 84% with gait on 2 L requiring recovery time and breathing to return to 92%. BED MOBILITY/TRANSFERS: Supine to Sit: Independent Sit to supine: Independent Sit to Stand: Independent Stand to Sit: Independent GAIT: Supervision without assistive device, 60 feet x2, 2 L O2 nasal cannula de- sats to 84% with gait, recovers to 92% with 5 minutes sitting rest break focusing on breathing techniques. Patient reports right lower extremity weakness from prior ORIF in April of this year, she defers use of cane or front wheel walker for gait support, stating her apartment is very small and she can furniture cruise . Patient is open to home physical therapy for lower extremity strengthening to reduce risk of falls due to lower extremity weakness status post ORIF. Patient returned to bed after gait session completed. BALANCE: Static sitting: Normal. Dynamic Sitting: Normal. Static Standing: Fair Dynamic Standing: Fair SPECIAL TESTS: Mobility Limitations Standardized Measure [facility] -PAC ?6 clicks? Basic Mobility Inpatient Short Form: raw score: 22 standardized score: 53.28 CMS score: 20.91% [facility] modifier: CJ INFORMED CONSENT/EDUCATION: Pt instructed in purpose of PT Consult and plan of care ASSESSMENT: Patient is a 72 year old female admitted with pneumonia in setting of s/p open reduction, internal fixation R distal femur fracture 05/10/17, chronic obstructive pulmonary disease, chronic diarrhea, anxiety and mood disorder, double laminectomy, chronic low back pain with sciatica. Patient demonstrates impairment level findings: decreased strength in bilateral shoulders due to rotator cuff weakness, decreased strength in right lower extremity status post ORIF, decreased dynamic standing balance due to right lower extremity weakness, decreased O2 sats with exertion requiring use of oxygen and pacing and energy conservation techniques with functional activities. Patient would benefit from use of cane or FWW with gait to reduce risk of falls, however patient defers assistive devices stating her apartment is too small and she can use furniture for support. Patient does have cane at home she can use as needed and family can provide front wheel walker if she chooses to use one. Patient is open to home PT for strengthening of lower extremities to improve gait stability, improve balance and reduce risk of falls and home setting. Patient appears to require O2, sats with with exertion dropping to 84% on 2 L nasal cannula with gait training with recovery O2 sats at 92% on 2 L per nasal cannula. Plan is discharged home setting, home PT recommended, patient defers DME. Impairments are contributing to the following functional limitations: AMPAC score 20.91% Patient is assessed as a *Low 44802 complexity based on the following: History: See above Examination: See above Presentation: Stable Decision Making: AMPAC score 20.91% GOALS Not applicable PLAN OF CARE/TREATMENT PLAN: PT eval only?one-time opinion per MD order DISCHARGE RECOMMENDATIONS: Home with home PT, does not require DME TREATMENT TIME/MINUTES/CODES: 25 minutes 1410 initial evaluation Codes in the area of walking mobility and moving around: Current status [id number] , projected status [id number] , discharge status GP [id number] AMPAC score 20.91% Rhoda Pruitt PT Disclaimer: This note was created using [employer] voice recognition software. It was reviewed for major content. However, there may be multiple small discrepancies and errors due to the voice recognition aspects of the software.
--- NOTE | 2018-04-04 14:39 | W.PM.PROGNOT ---
Date of Service Date of service: 04/04/18 Time of Service: 12:49 Assessment and Plan (1) COPD (chronic obstructive pulmonary disease): Current visit: Yes Status: Chronic COPD exacerbation likely infectious trigger. Will finish out ceftriaxone intravenously and then we will not need to go home on antibiotics. Still has significant oxygen desaturations with exertion and will likely need to use oxygen more regularly once a discharged. Significantly deconditioned so holding off on discharge until tomorrow. Discussed with her the duplication of her inhalers and will likely be going home just on the budesonide and formoterol via her nebulizer and not by metered-dose inhaler. She will also continue on the Incruse Ellipta inhaler and her Roflumilast (2) Chronic pain syndrome: Current visit: Yes Status: Chronic No changes planned for any new treatment for her chronic neck and leg pain. Home PT. (3) Anxiety: Current visit: Yes Status: Chronic Sertraline continues at outpatient dose. (4) Bacterial pneumonia: Current visit: Yes Status: Acute Presumed bacterial but may have viral pneumonia. Complete antibiotics tomorrow. Subjective Interval history since last seen: Still has a cough although cannot raise sputum. Feels weak and worn out from coughing. Has not been walking much, worried about her ability to function at home. She does have support of her son and [id number] to some degree as well as neighbors. States that she has not been using oxygen regularly at home until this illness. With effort today, oxygen desaturated into the mid 80% range when ambulating but quickly recovered into the 90% range at rest. Has not been febrile. Denies chest pain. Appetite stable. Ongoing neck and right thigh pain at about her baseline. Chronic loose stools, nothing different from her usual. Exam Narrative Exam Narrative: Between coughing jags she can speak in full sentences and does not appear in any distress. She does have frequent loose cough that is nonproductive. She has been afebrile. Blood pressures 130s-140s, SaO2 90-95% range. Neck veins are flat. Very distant breath sounds with poor aeration throughout, no rub crackles or wheeze heard anywhere but breath sounds are very soft. Heart tones likewise are distant, regular no murmur S3 or S4. Abdomen thin nontender normal bowel sounds. No ankle edema. Antigravity power present in all extremities. She sits up unassisted. Mood seems appropriate. Oriented x4. Objective Objective Clinical Data: Abnormal lab results 04/04/18 Range/Units 06:48 MCHC 31.6 L (32.0-36.0) g/dL Absolute Monocytes 0.81 H (0.11-0.7) k/cumm Vital Signs Temperature 37.2 C 04/04/18 11:14 Temperature Source Tympanic 04/04/18 11:14 Pulse 72 04/04/18 07:35 Pulse Rhythm Regular 04/04/18 07:55 Pulse 73 04/02/18 10:01 Respiratory Rate 18 04/04/18 07:35 Respiratory Effort Non-Labored 04/04/18 07:55 Respiratory Depth Normal 04/04/18 07:55 Respiratory Pattern Normal 04/04/18 07:55 Blood Pressure 145/82 H 04/04/18 07:35 Blood Pressure Mean 72 04/02/18 12:00 Blood Pressure Position Supine 04/02/18 08:00 Pulse Oximetry 95 04/04/18 08:59 Oxygen Delivery Method Nasal Cannula 04/04/18 08:59 Oxygen Flow Rate 2 04/04/18 08:59 Fraction of Inspired Oxygen (FIO2) 96 03/31/18 17:00 Pain Level 4 04/04/18 13:40 Comment 04/02/18 12:50 Intake & Output 04/03/18 04/04/18 04/04/18 23:59 11:59 23:59 Intake Total 361.667 / 1151.667 260 / 320 60 / 320 Output Total 2275 / 3325 1850 / 1850 Balance -1913.333 / -2173.333 -1590 / -1530 60 / -1530 Intake: IV 121.667 / 121.667 20 / 80 60 / 80 Oral 240 / 1030 240 / 240 Output: Urine 2275 / 3325 1850 / 1850 Other: Urine Color Yellow Yellow Urine Appearance Clear Clear Urine Odor None Normal Comment Void x1 in the toilet. Stool Size Moderate Moderate Stool Characteristics Soft Brown Liquid Brown Voiding Methods Toilet Toilet Laboratory Results WBC 8.46 k/cumm (4.4-10.8) 04/04/18 06:48 RBC 4.76 m/cumm (4.00-5.20) 04/04/18 06:48 Hgb 14.2 g/dL (12.0-15.5) D 04/04/18 06:48 Hct 45.0 % (36.0-46.0) 04/04/18 06:48 MCV 94.5 fL (80-95) 04/04/18 06:48 MCH 29.8 pg (27.0-33.0) 04/04/18 06:48 MCHC 31.6 g/dL (32.0-36.0) L 04/04/18 06:48 RDW 14.5 % (11.7-14.6) 04/04/18 06:48 Plt Count 212 x1000/uL (130-400) 04/04/18 06:48 MPV 9.7 fL (8.0-11.0) 04/04/18 06:48 Immature Gran % 1.9 04/04/18 06:48 Neutrophils % 64.3 04/04/18 06:48 Lymphocytes % 23.4 04/04/18 06:48 Monocytes % 9.6 04/04/18 06:48 Eosinophils % 0.7 04/04/18 06:48 Basophils % 0.1 04/04/18 06:48 Absolute Neutrophils 5.44 k/cumm (1.2-6.7) 04/04/18 06:48 Absolute Lymphocytes 1.98 k/cumm (1.2-3.4) 04/04/18 06:48 Absolute Monocytes 0.81 k/cumm (0.11-0.7) H 04/04/18 06:48 Absolute Eosinophils 0.06 k/cumm (0.0-0.7) 04/04/18 06:48 Absolute Basophils 0.01 k/cumm (0.0-0.2) 04/04/18 06:48 VBG pH 7.37 (7.32-7.43) 03/30/18 12:30 VBG pCO2 52 mm/Hg (34-47) H 03/30/18 12:30 VBG pO2 31 mm/Hg (28-44) 03/30/18 12:30 VBG HCO3 30 mmol/L (22-28) H 03/30/18 12:30 VBG Total CO2 27 mmol/L (22-29) 03/30/18 12:30 VBG O2 Saturation 61 % (70-80) L 03/30/18 12:30 VBG Base Excess 4.7 mmol/L (-3-3) H 03/30/18 12:30 Sodium 141 mmol/L (136-145) 04/01/18 06:15 Potassium 3.8 mmol/L (3.5-5.1) 04/01/18 06:15 Chloride 105 mmol/L (98-107) 04/01/18 06:15 Carbon Dioxide 27.8 mmol/L (21.0-32.0) 04/01/18 06:15 Anion Gap 8.2 mmol/L (3-11) 04/01/18 06:15 BUN 8 mg/dL (7-18) 04/01/18 06:15 Creatinine 0.66 mg/dL (0.55-1.02) 04/01/18 06:15 Estimated GFR/1.73 m2 >= 60.00 (mL/min/1.73m2) 04/01/18 06:15 Glucose 124 mg/dL (70-100) H 04/01/18 06:15 Lactate 1.1 mmol/L (0.6-1.4) 03/30/18 12:30 Calcium 8.5 mg/dL (8.5-10.1) 04/01/18 06:15 Magnesium 1.9 mg/dL (1.8-2.4) 04/01/18 06:15 Total Bilirubin 0.7 mg/dL (0.2-1.0) 03/30/18 12:30 AST 17 U/L (15-37) 03/30/18 12:30 ALT 27 U/L (12-78) 03/30/18 12:30 Alkaline Phosphatase 97 U/L (46-116) 03/30/18 12:30 Troponin I < 0.02 ng/mL (0.00-0.06) 03/30/18 12:30 Total Protein 7.7 g/dL (6.4-8.2) 03/30/18 12:30 Albumin 3.5 g/dL (3.4-5.0) 03/30/18 12:30 Urine Color Yellow (Yellow) 03/30/18 23:15 Urine Clarity Clear 03/30/18 23:15 Urine pH 5.5 (5-8) 03/30/18 23:15 Ur Specific Bradshaw 1.010 (1.005-1.025) 03/30/18 23:15 Urine Protein Negative mg/dL (Negative) 03/30/18 23:15 Urine Ketones Negative mg/dL (Negative) 03/30/18 23:15 Urine Blood Trace-lysed (Negative) H 03/30/18 23:15 Urine Nitrite Negative (Negative) 03/30/18 23:15 Urine Bilirubin Negative (Negative) 03/30/18 23:15 Urine Urobilinogen 0.2 EU/dL (Up TO 0.2) 03/30/18 23:15 Ur Leukocyte Esterase Negative (Negative) 03/30/18 23:15 Urine RBC 0-2 (0-2) 03/30/18 23:15 Urine WBC 0-2 HPF (0-5) 03/30/18 23:15 Ur Epithelial Cells Rare HPF (Negative) 03/30/18 23:15 Urine Crystals Negative HPF (Negative) 03/30/18 23:15 Urine Bacteria Rare HPF (Negative) 03/30/18 23:15 Urine Casts Negative LPF (Negative) 03/30/18 23:15 Urine Mucus Negative (Negative) 03/30/18 23:15 Ur Culture Indicated? No 03/30/18 23:15 Urine Glucose 500 mg/dL (Negative) H 03/30/18 23:15
--- NOTE | 2018-04-04 15:17 | PDOC.CMPRO ---
Care Management Progress Note S/O: Laney was lying in bed when CM met with her, she reported she was still not feeling back to her baseline and did not anticipate discharging until tomorrow. She had questions regarding her medications and which she would be discharging on; CM deferred questions to RN and MD and encouraged Laney to write down her questions for review. CM reviewed new referrals for support upon discharge; Laney remains agreeable to new support services. CM received call from Manisha Nettles at [facility] who reported Laney would begin recieveing MOW as soon as she discharged and would have an Options Counselor help her with applications for Moderate Needs home making services and [facility] which would provide her with a patient case coordinator. CM will continue to support discharge planning considerations. A: 72 year old female admitted to [facility] P: Laney will return home when ready per MD. CM faxed referral to [facility] for Options counseling, MOW, and Moderate Homemaker services. CM called [facility] and arranged for new service support. Laney will resume home O2 and follow up with her PCP, and Chronic Button Bradder; Nancy Heath. She will transport via private vehicle with family or a friend.
--- NOTE | 2018-04-04 15:23 | CMPROGNOTE_ITS ---
Care Management Progress Note S/O: Laney was lying in bed when CM met with her, she reported she was still not feeling back to her baseline and did not anticipate discharging until tomorrow. She had questions regarding her medications and which she would be discharging on; CM deferred questions to RN and MD and encouraged Laney to write down her questions for review. CM reviewed new referrals for support upon discharge; Laney remains agreeable to new support services. CM received call from Manisha Nettles at [facility] who reported Laney would begin recieveing MOW as soon as she discharged and would have an Options Counselor help her with applications for Moderate Needs home making services and [facility] which would provide her with a lining caser. CM will continue to support discharge planning considerations. A: 72 year old female admitted to [facility] P: Laney will return home when ready per MD. CM faxed referral to [facility] for Options counseling, MOW, and Moderate Homemaker services. CM called [facility] and arranged for new service support. Laney will resume home O2 and follow up with her PCP, and Chronic Metal Control Coordinator; Nancy Heath. She will transport via [employer] vehicle with family or a friend.
[2018-04-04 15:55] VITALS: BP 96/59; PULSE 68; RESP 18; TEMP 36.3; O2SAT 95
[2018-04-04] MEDS: Enoxaparin 40 MG/0.4 ML SYR SC (17:15)
[2018-04-04] MEDS: Cyclobenzaprine 10 MG TAB 5 MG PO (22:15)
[2018-04-05 03:17] VITALS: BP 128/70; PULSE 65; RESP 18; TEMP 36.2; O2SAT 98
[2018-04-05 07:35] VITALS: BP 124/72; PULSE 74; RESP 18; TEMP 36.4; O2SAT 96
[2018-04-05 08:05] VITALS: O2SAT 94
[2018-04-05] MEDS: Umeclidinium 7 CAP INHALER 1 CAP IH (08:08)
[2018-04-05] MEDS: Budesonide 0.5 MG/2 ML UPD VIAL UPD (08:09)
[2018-04-05] MEDS: Sertraline 50 MG TAB 100 MG PO (08:23)
[2018-04-05] MEDS: guaiFENesin 600 MG TABCR PO (08:25)
[2018-04-05] MEDS: Azithromycin 250 MG TAB PO (08:25)
[2018-04-05] MEDS: Metoprolol 12.5 MG TAB PO (08:25)
[2018-04-05] MEDS: Benzonatate 100 MG CAP 200 MG PO (08:25)
[2018-04-05] MEDS: clonazePAM 1 MG TAB PO (09:03)
--- NOTE | 2018-04-05 09:50 | CMDISCH_ITS ---
LACE Index Scoring Tool - Questions: Length of Stay (in days): 4 - 6 Acuity (Admit via E.D.?): Yes Comorbidities: Chronic Pulmonary Disease E.D. Visits: 2 - Answers: Total Score: 11 Risk of Readmission: High Risk Care Management Discharge Reason for Hospitalization: Pneumonia, Hypoxia Discharge Plan: Laney will return home when ready per MD. She will have new orders for [facility]/PT/OT-CM faxed referral to [facility]. CM faxed referral to [facility] for Options counseling, MOW, and Moderate Homemaker services and spoke with Manisha who confirmed service connection. CM also called [facility] and arranged for new service support. Laney will resume home O2 and follow up with her PCP, and Chronic Hot Mill Observer; Nancy Heath. She will transport via private vehicle with family or a friend. Patient/Family Education Needs: Reviewed community based services, referral process, discharge instructions, discussed Ask Me Three to assure patient aware of self care needs upon discharge and contact info/resources for outreach as applicable. Services Needed at Discharge: Home Delivered Meals ([facility]OW-[facility]), Home Health Care Services ([facility]/PT/OT), Homemaking Services (Referral to [facility]: confirmed by Manisha Nettles), Occupational Therapy, Oxygen Therapy (Resume), Physical Therapy, Transportation ([facility] new service supports)
--- NOTE | 2018-04-05 11:00 | W.PM.DS.N ---
Date of service: 04/05/18 Time of Service: 11:01 DS: Diagnosis Discharge Diagnosis (1) COPD (chronic obstructive pulmonary disease): Status: Chronic (2) Chronic pain syndrome: Status: Chronic (3) Anxiety: Status: Chronic (4) Bacterial pneumonia: Status: Acute Discharge Plan Disposition Patient Disposition: HOME W/HOME HEALTH SERVICE Condition: Stable Discharge Details Reason For Visit: PNEUMONIA, HYPOXIA Admit Date/Time: 03/30/18 15:09 Admit Provider: Kalia Eden Attending Provider: Kalia Eden Primary Care Provider: Ralph Rahman Hospital Course Hospital Course: Laney Stephens is a pleasant 72 year old woman with an approximate 85-[id number] history of tobacco abuse, and subsequent development of significant COPD who presented to the [facility] ED on 03/30/18 with report of cough and dyspnea. She reported a change in her cough approximately 2-3 weeks ago, with onset of acute or worsening symptoms accompanied by dyspnea last night. She also endorsed a fever with a temperature of 101, as well as hypoxia with a pulse ox in the 80s. She attempted to use her home O2 but continued to be uncomfortable, and eventually had multiple bouts of vomiting. Due to her symptoms she presented to the emergency department for further evaluation and treatment. Workup in the ED was significant for evidence of a fever with a temperature of 38.2, tachycardia and hypotension, and initial hypoxia. Lab work showed evidence of a leukocytosis, and a chest x-ray confirmed a left lower lobe infiltrate. Given the above findings the patient was referred for admission to the ICU for further evaluation and treatment. She was initiated on Azithromycin and Ceftriaxone, with IV steroids and nebulizer treatments. Blood cultures yielded no growth in 120 hours. Sputum cultures grew yeast with normal ailyn. Her condition improved over the following days. Her leukocytosis improved, she remained afebrile. She worked with PT. She will need home PT/OT upon discharge home for strengthening as she is deconditioned. She has home oxygen and home nebulizer. Of note, while on awake overnight monitor, she experienced PSVT, into the 160s. She was initiated on metoprolol 12.5 mg PO BID. She will be discharged home on this regimen as her heart rate and blood pressure have been acceptable. She will follow up with her PCP on whether or not to continue the beta helen. She has completed a course of antibiotics. She will be discharged home to taper off steroids. She will follow up with her PCP as scheduled. Home Meds and New Rx's Prescriptions: New benzonatate 100 mg Capsule 200 mg PO TID PRN (Reason: cough) Qty: 14 RF: 0 metoprolol tartrate 25 mg Tablet 12.5 mg PO BID Qty: 60 RF: 0 prednisone 10 mg tablet 10 mg PO DAILY Qty: 20 RF: 0 Continued Incruse Ellipta 62.5 mcg/actuation blister with device 1 inh Inhalation DAILY Qty: 30 RF: 11 sertraline 100 mg tablet 100 mg PO DAILY Qty: 30 RF: 5 budesonide 0.25 MG/2 ML suspension for nebulization 1 vial Inhalation BID RF: 0 Perforomist 20 MCG/2 ML solution for nebulization 1 vial Inhalation BID RF: 0 PROVENTIL HFA 18 GM HFA.AER.AD 1 - 2 puff Inhalation Q4H PRN Qty: 1 RF: 3 Daliresp 500 mcg tablet 500 mcg PO DAILY Qty: 90 RF: 3 clonazepam 1 mg tablet 1 mg PO BID PRN (Reason: anxiety) Qty: 60 RF: 1 cyclobenzaprine 5 mg tablet 5 mg PO HS PRN (Reason: muscle spasm) Qty: 30 RF: 1 guaifenesin [Mucinex] 600 MG tablet extended release 12hr 600 mg PO DAILY PRN RF: 0 Salonpas 1 EACH adhesive patch,medicated 1 ea Topical .DAILY X 12 HOURS RF: 0 Discontinued Symbicort 80-4.5 mcg/actuation HFA aerosol inhaler 2 puff Inhalation BID Qty: 10.2 RF: 5 Discharge Instructions Instructions: Hypoxia (GEN), Pneumonia (DC) Additional Instructions: Taper the prednisone as follows: 40 mg daily x2 days then, 30 mg daily x2 days then, 20 mg daily x2 days then, 10 mg daily x2 days then stop. Use oxygen at home as needed. Follow up with your PCP as scheduled. Take care! Stand Alone Forms: Nursing Discharge Form Referrals: Ralph Rahman [Primary Care Provider] - 04/26/18 10:40 am Activity:: Activity as Tolerated Equipment/Supplies:: No Equipment Needed Diet:: As Tolerated Discharge Orders Discharge Orders: Discharge Order (Routine); Ordered 04/05/18 Ordered By: Sammi Carlos Exam Narrative Exam Narrative: General: sitting up in bed, able to speak in complete sentences. No acute distress. HEENT: normocephalic, atraumatic. Pupils equal and round, mucous membranes moist. Neck: supple, no JVD. Respiratory: respirations appear unlabored. Lung sounds diminished throughout, inspiratory wheezes noted throughout. Cardiovascular: heart hes regular rate and rhythm, no murmur appreciated. Abdomen: thin, flat, normal bowel sounds throughout, no tenderness on palpation, no masses appreciated. Extremities: well perfused, without clubbing, cyanosis or edema. DS: Data Vitals/I&O Vitals and I&O: Vital Signs Temperature 36.4 C L 04/05/18 07:35 Temperature Source Tympanic 04/05/18 07:35 Pulse 74 04/05/18 07:35 Pulse Rhythm Regular 04/05/18 09:10 Pulse 73 04/02/18 10:01 Respiratory Rate 18 04/05/18 07:35 Respiratory Effort Non-Labored 04/05/18 09:10 Respiratory Depth Normal 04/05/18 09:10 Respiratory Pattern Normal 04/05/18 09:10 Blood Pressure 124/72 04/05/18 07:35 Blood Pressure Mean 72 04/02/18 12:00 Blood Pressure Position Supine 04/02/18 08:00 Pulse Oximetry 94 L 04/05/18 08:05 Oxygen Delivery Method Nasal Cannula 04/05/18 08:05 Oxygen Flow Rate 2 04/05/18 08:05 Fraction of Inspired Oxygen (FIO2) 96 03/31/18 17:00 Pain Level 8 04/04/18 17:15 Comment 04/02/18 12:50 Intake & Output 04/04/18 04/04/18 04/05/18 11:59 23:59 11:59 Intake Total 260 / 560 300 / 560 740 / 740 Output Total 1850 / 1850 650 / 650 Balance -1590 / -1290 300 / -1290 90 / 90 Weight 55.2 kg Intake: IV 20 / 80 60 / 80 Oral 240 / 480 240 / 480 740 / 740 Output: Urine 1850 / 1850 650 / 650 Other: Urine Color Yellow Yellow Urine Appearance Clear Clear Urine Odor Normal Normal Stool Size Moderate Stool Characteristics Brown Voiding Methods Toilet Toilet Toilet Completed studies during hospitalization [Text1]: 03/30/18: CHEST X-RAY, PA AND LATERAL: Comparison chest x-ray is 09/18/15. The heart size and pulmonary vasculature are within normal limits. The lungs are hyperinflated consistent with underlying COPD. There are increased infiltrates seen in the left lower lobe. The findings are suspicious for pneumonia or atelectasis. There is scarring in the right lung base. No effusions or pneumothoraces are identified. Degenerative changes are seen in the spine. IMPRESSION: 1. Left lower lobe infiltrate suspicious for pneumonia. 2. COPD and pulmonary fibrosis. [facility] Medical History COPD (chronic obstructive pulmonary disease) (Chronic) Surgical History Appendectomy CHEST TUBE Extraction of cataract LAMINECTOMY Social History lives independently: Yes other: living along; missing her family; lonely Smoking/Tobacco Use Status: Former Tobacco Use quit date: 09/16/13 pack-years: 25 alcohol intake: current alcohol intake frequency: holidays/special occasions only substance use type: does not use additional social history: 16 years ago. Originally from [place], moved here to be near son and grand children. On disability due to chronic back pain. 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 Approximate 75 pack year history of tobacco. No alcohol or illicit drug use endorsed.
--- NOTE | 2018-04-05 11:03 | DSE_ITS ---
Date of service: 04/05/18 Time of Service: 11:01 DS: Diagnosis Discharge Diagnosis (1) COPD (chronic obstructive pulmonary disease): Status: Chronic (2) Chronic pain syndrome: Status: Chronic (3) Anxiety: Status: Chronic (4) Bacterial pneumonia: Status: Acute Discharge Plan Disposition Patient Disposition: HOME W/HOME HEALTH SERVICE Condition: Stable Discharge Details Reason For Visit: PNEUMONIA, HYPOXIA Admit Date/Time: 03/30/18 15:09 Admit Provider: aKlia Eden Attending Provider: Kalia Eden Primary Care Provider: Ralph Rahman Hospital Course Hospital Course: Laney Stephens is a pleasant 72 year old woman with an approximate [id number] history of tobacco abuse, and subsequent development of significant COPD who presented to the [facility] ED on 03/30/18 with report of cough and dyspnea. She reported a change in her cough approximately 2-3 weeks ago, with onset of acute or worsening symptoms accompanied by dyspnea last night. She also endorsed a fever with a temperature of 101, as well as hypoxia with a pulse ox in the 80s. She attempted to use her home O2 but continued to be uncomfortable, and eventually had multiple bouts of vomiting. Due to her symptoms she presented to the emergency department for further evaluation and treatment. Workup in the ED was significant for evidence of a fever with a temperature of 38.2, tachycardia and hypotension, and initial hypoxia. Lab work showed evidence of a leukocytosis, and a chest x-ray confirmed a left lower lobe infiltrate. Given the above findings the patient was referred for admission to the ICU for further evaluation and treatment. She was initiated on Azithromycin and Ceftriaxone, with IV steroids and nebulizer treatments. Blood cultures yielded no growth in 120 hours. Sputum cultures grew yeast with normal ailyn. Her condition improved over the following days. Her leukocytosis improved, she remained afebrile. She worked with PT. She will need home PT/OT upon discharge home for strengthening as she is de conditioned. She has home oxygen and home nebulizer. Of note, while on cardiac specialist, she experienced PSVT, into the 160s. She was initiated on metoprolol 12.5 mg PO BID. She will be discharged home on this regimen as her heart rate and blood pressure have been acceptable. She will follow up with her PCP on whether or not to continue the beta helen. She has completed a course of antibiotics. She will be discharged home to taper off steroids. She will follow up with her PCP as scheduled. Home Meds and New Rx's Prescriptions: New benzonatate 100 mg Capsule 200 mg PO TID PRN (Reason: cough) Qty: 14 RF: 0 metoprolol tartrate 25 mg Tablet 12.5 mg PO BID Qty: 60 RF: 0 prednisone 10 mg tablet 10 mg PO DAILY Qty: 20 RF: 0 Continued Incruse Ellipta 62.5 mcg/actuation blister with device 1 inh Inhalation DAILY Qty: 30 RF: 11 sertraline 100 mg tablet 100 mg PO DAILY Qty: 30 RF: 5 budesonide 0.25 MG/2 ML suspension for nebulization 1 vial Inhalation BID RF: 0 Perforomist 20 MCG/2 ML solution for nebulization 1 vial Inhalation BID RF: 0 PROVENTIL HFA 18 GM HFA.AER.AD 1 - 2 puff Inhalation Q4H PRN Qty: 1 RF: 3 Daliresp 500 mcg tablet 500 mcg PO DAILY Qty: 90 RF: 3 clonazepam 1 mg tablet 1 mg PO BID PRN (Reason: anxiety) Qty: 60 RF: 1 cyclobenzaprine 5 mg tablet 5 mg PO HS PRN (Reason: muscle spasm) Qty: 30 RF: 1 guaifenesin [Mucinex] 600 MG tablet extended release 12hr 600 mg PO DAILY PRN RF: 0 Salonpas 1 EACH adhesive patch,medicated 1 ea Topical .DAILY X 12 HOURS RF: 0 Discontinued Symbicort 80-4.5 mcg/actuation HFA aerosol inhaler 2 puff Inhalation BID Qty: 10.2 RF: 5 Discharge Instructions Instructions: Hypoxia (GEN), Pneumonia (DC) Additional Instructions: Taper the prednisone as follows: 40 mg daily x2 days then, 30 mg daily x2 days then, 20 mg daily x2 days then, 10 mg daily x2 days then stop. Use oxygen at home as needed. Follow up with your PCP as scheduled. Take care! Stand Alone Forms: Nursing Discharge Form Referrals: Ralph Rahman [Primary Care Provider] - 04/26/18 10:40 am Activity:: Activity as Tolerated Equipment/Supplies:: No Equipment Needed Diet:: As Tolerated Discharge Orders Discharge Orders: Discharge Order (Routine); Ordered 04/05/18 Ordered By: Sammi Carlos Exam Narrative Exam Narrative: General: sitting up in bed, able to speak in complete sentences. No acute distress. HEENT: normocephalic, atraumatic. Pupils equal and round, mucous membranes moist. Neck: supple, no JVD. Respiratory: respirations appear unlabored. Lung sounds diminished throughout, inspiratory wheezes noted throughout. Cardiovascular: heart hes regular rate and rhythm, no murmur appreciated. Abdomen: thin, flat, normal bowel sounds throughout, no tenderness on palpation, no masses appreciated. Extremities: well perfused, without clubbing, cyanosis or edema. DS: Data Vitals/I&O Vitals and I&O: Vital Signs Temperature 36.4 C L 04/05/18 07:35 Temperature Source Tympanic 04/05/18 07:35 Pulse 74 04/05/18 07:35 Pulse Rhythm Regular 04/05/18 09:10 Pulse 73 04/02/18 10:01 Respiratory Rate 18 04/05/18 07:35 Respiratory Effort Non-Labored 04/05/18 09:10 Respiratory Depth Normal 04/05/18 09:10 Respiratory Pattern Normal 04/05/18 09:10 Blood Pressure 124/72 04/05/18 07:35 Blood Pressure Mean 72 04/02/18 12:00 Blood Pressure Position Supine 04/02/18 08:00 Pulse Oximetry 94 L 04/05/18 08:05 Oxygen Delivery Method Nasal Cannula 04/05/18 08:05 Oxygen Flow Rate 2 04/05/18 08:05 Fraction of Inspired Oxygen (FIO2) 96 03/31/18 17:00 Pain Level 8 04/04/18 17:15 Comment 04/02/18 12:50 Intake & Output 04/04/18 04/04/18 04/05/18 11:59 23:59 11:59 Intake Total 260 / 560 300 / 560 740 / 740 Output Total 1850 / 1850 650 / 650 Balance -1590 / -1290 300 / -1290 90 / 90 Weight 55.2 kg Intake: IV 20 / 80 60 / 80 Oral 240 / 480 240 / 480 740 / 740 Output: Urine 1850 / 1850 650 / 650 Other: Urine Color Yellow Yellow Urine Appearance Clear Clear Urine Odor Normal Normal Stool Size Moderate Stool Characteristics Brown Voiding Methods Toilet Toilet Toilet Completed studies during hospitalization [Text1]: 03/30/18: CHEST X-RAY, PA AND LATERAL: Comparison chest x-ray is 09/18/15. The heart size and pulmonary vasculature are within normal limits. The lungs are hyperinflated consistent with underlying COPD. There are increased infiltrates seen in the left lower lobe. The findings are suspicious for pneumonia or atelectasis. There is scarring in the right lung base. No effusions or pneumothoraces are identified. Degenerative changes are seen in the spine. IMPRESSION: 1. Left lower lobe infiltrate suspicious for pneumonia. 2. COPD and pulmonary fibrosis. [facility] Medical History COPD (chronic obstructive pulmonary disease) (Chronic) Surgical History Appendectomy CHEST TUBE Extraction of cataract LAMINECTOMY Social History lives independently: Yes other: living along; missing her family; lonely Smoking/Tobacco Use Status: Former Tobacco Use quit date: 09/16/13 pack-years: 25 alcohol intake: current alcohol intake frequency: holidays/special occasions only substance use type: does not use additional social history: 16 years ago. Originally from [place], moved here to be near son and grand children. On disability due to chronic back pain. 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 Approximate 75 pack year history of tobacco. No alcohol or illicit drug use endorsed.
[2018-04-05] MEDS: Normal Saline Flush 10 ML SYR IVP (11:15)
[2018-04-05] MEDS: oxyCODONE 5 MG TAB PO (11:15)
--- NOTE | 2018-04-05 12:37 | PDOC.HHF2F ---
1. Encounter Date and Reason I certify that MALENA BOWER was seen by Sammi Gonzalez on 04/05/18 and that I had a [id number] encounter with this patient that meets the physician face to face encounter requirements. 2. Clinical Findings Supporting Skilled Need and Homebound Status I certify that home health services are medically necessary, include either intermittent care home and/or physical/speech therapy, and that this patient is homebound in that absences from the home require considerable and taxing effort and are infrequent or of short duration, or are attributable to the need to receive medical care. [X] (a) Attached documentation from encounter provides clinical findings supporting skilled need and homebound status (including what assistance patient requires to leave the home). The encounter with the patient was in whole, or in part, for the following medical condition, which is the primary reason for home health care: PNEUMONIA, HYPOXIA Correction: Physical Therapy: Needed for strengthening and endurance after hospitalization. OT: Needed to eval/assess home and make recommendations as needed. Speech Therapy: Homebound: Unable to leave home without assistance. 3. Certification and Authentication I certify that I composed the above information based on my clinical judgement relating to this patient's medical condition and, if applicable, clinical findings communicated to me by the NPP or inpatient physician who performed the Home Health Referral. All further orders will be obtained through ____Dr. Rahman (Community Based Physician - PCP)
== END 2018-04-05 14:36 | disposition home health service (06) | DRG 193 ==
LOC: ER 15:40 → ICU 16:31 → MS 04-03 10:54
PROVIDERS: Family Medicine; Admitting Provider Internal Medicine; Emergency Provider Student in an Organized Health Care Education/Training Program; PCP Family Medicine; Visit Provider Internal Medicine
DX: J15.9 Unspecified bacterial pneumonia (principal); A41.9 Sepsis, unspecified organism; I47.1 Supraventricular tachycardia; R09.02 Hypoxemia; J44.9 Chronic obstructive pulmonary disease, unspecified; Z87.891 Personal history of nicotine dependence; M54.2 Cervicalgia; M79.651 Pain in right thigh; J84.10 Pulmonary fibrosis, unspecified; G89.4 Chronic pain syndrome; F41.9 Anxiety disorder, unspecified
CPT/HCPCS: 36415; 80048; 80053; 82805; 87040; 87077; 87449; 93005; 94640; 96361; 96365; 96366; 96367; 96375; 97161; 99222; 99232; 99233; 99239; 99285; J1650; 71046; 81003; 81015; 83605; 83735; 84484; 85025; 87070; 87205; 93010; J0456; J2930; J3490; J7512; J7620; J7626

== ENCOUNTER 2018-05-02 11:12 | Outpatient (CLI) | payer MEDICARE, OTHER, MEDICAID, SELFPAY ==
--- NOTE | 2018-05-02 13:05 | DI.RAD_ITS ---
SYMPTOMS/DIAGNOSIS: KNEE PAIN RIGHT KNEE: Comparison is made with [id number] and [id number]. Hardware remains in place along the lateral aspect of the distal femur. The previously noted fracture now appears healed. There are mild degenerative changes. The bones appear osteoporotic. No new abnormalities are seen.
== END 2018-05-02 11:32 ==
PROVIDERS: PCP Family Medicine; Referring Provider Family Medicine; Visit Provider Orthopaedic Surgery
DX: M25.561 Pain in right knee (principal); M16.11 Unilateral primary osteoarthritis, right hip; M85.88 Other specified disorders of bone density and structure, other site; Z87.81 Personal history of (healed) traumatic fracture; J44.9 Chronic obstructive pulmonary disease, unspecified; Z87.891 Personal history of nicotine dependence; T84.84XA Pain due to internal orthopedic prosthetic devices, implants and grafts, initial encounter
CPT/HCPCS: 99213; 73560

== ENCOUNTER 2018-07-13 10:15 | Outpatient (CLI) | payer MEDICARE, OTHER, MEDICAID, SELFPAY ==
--- NOTE | 2018-07-13 10:08 | DI.RAD_ITS ---
SYMPTOMS/DIAGNOSIS: RT KNEE PAIN RIGHT KNEE: When compared with the previous images of 05/02/18, again noted is the orthopedic hardware affixed to the distal femur where a healed fracture is demonstrated. Note is made of joint space narrowing at the medial tibial femoral joint unchanged. Elsewhere minimal DJD is evident. SUMMARY: Mild degenerative changes involving the right knee are identified. There has been no significant interval change when compared with the prior images of 05/02/18.
== END 2018-07-13 10:35 ==
PROVIDERS: PCP Family Medicine; Referring Provider Family Medicine; Visit Provider Orthopaedic Surgery
DX: M17.11 Unilateral primary osteoarthritis, right knee; Z87.81 Personal history of (healed) traumatic fracture; S80.01XA Contusion of right knee, initial encounter; W51.XXXA Accidental striking against or bumped into by another person, initial encounter
CPT/HCPCS: 99213; 99214; 73560

== ENCOUNTER → 2018-08-10 10:34 | Outpatient (BNVA) | payer MEDICARE, OTHER, MEDICAID, SELFPAY | PROVIDERS: PCP Family Medicine; Referring Provider Family Medicine; Visit Provider Orthopaedic Surgery | DX: M79.651 Pain in right thigh (principal); T84.84XA Pain due to internal orthopedic prosthetic devices, implants and grafts, initial encounter; J44.1 Chronic obstructive pulmonary disease with (acute) exacerbation; Z87.891 Personal history of nicotine dependence; Z87.81 Personal history of (healed) traumatic fracture | CPT/HCPCS: 99211; 99213 ==

== ENCOUNTER → 2018-10-04 10:11 | Outpatient (BNVA) | payer MEDICARE, OTHER, MEDICAID, SELFPAY | PROVIDERS: PCP Family Medicine; Referring Provider Family Medicine; Visit Provider Orthopaedic Surgery | DX: T84.84XA Pain due to internal orthopedic prosthetic devices, implants and grafts, initial encounter (principal); M25.561 Pain in right knee; J44.9 Chronic obstructive pulmonary disease, unspecified; Z87.891 Personal history of nicotine dependence | CPT/HCPCS: 99213 ==

== ENCOUNTER 2018-10-27 09:49 | Outpatient (CLI) | payer MEDICARE, OTHER, MEDICAID, SELFPAY ==
--- NOTE | 2018-10-27 09:12 | HPE_ITS ---
Assessment and Plan (1) Right femoral fracture: Current visit: Yes Status: Resolved Plan: Educated patient on surgery covering surgical technique, recovery process, benefits and risks including but not limited to risk of infection, blood clot, damage to soft tissue/blood vessels/nerves in detail. After discussion patient gives verbal understanding of risks and elects to proceed with scheduling surgery. Patient had opportunity to have questions answered to their satisfaction. They will contact office if issues arise. She had concerns regarding anesthesia since she reports being able to feel pain during surgery. Patient will continue to be scheduled for removal of locking plate and screws from her right femur with Dr. Bob. Qualifiers: Encounter type: sequela Femur location: unspecified portion of femur Fracture type: closed Fracture morphology: unspecified fracture morphology Qualified Code(s): S72.91XS - Unspecified fracture of right femur, sequela History of Present Illness Narrative: Ms. Stephens is a 73-year-old female who presents to clinic with her son, Stanley, for preoperative visit for scheduled right femur removal of plate and screws with Dr. Bob. Patient is status post femoral locking plate for distal femur fracture on 05/10/17. Since her fracture has healed she has continued to have severe lateral based pain which is thought to be elicited from the IT band rubbing over the prominent plate. She also describes worsening anterior thigh pain that was caused by her grandson rolling on her leg over 6 months ago. She reports that she has since given up driving due to her severe pain. Pain is aggravated with walking, getting out of the bed and stairs especially descending stairs. She describes pain as a throbbing discomfort that is only slightly crhis viated by ice/heat. Denies any improvement with the use of tylenol or ibuprofen. She denies any recent injury or trauma. Denies symptoms of numbness, tingling or muscle weakness. Pertinent Surgical Information Denies past medical history of: Hypertension, stroke, cardiac issues, angina, asthma, sleep apnea, renal issues, liver issues, hepatitis, hyperlipidemia, bleeding disorders, seizures, migraines, diabetes, autoimmune disorders, thyroid issues Denies prior complications from surgery or anesthesia. Review of Systems Constitutional Denies fever(s), Denies frequent falls and Reports headache(s) (occasional reports a few a month; denies any recent changes ) Eyes Reports change in vision (reports recent change since having cataracts done) ENT Denies dizziness, Denies ear discharge, Reports headache(s) (occasional reports a few a month; denies any recent changes ), Denies epistaxis, Reports nasal discharge (reports clear nasal discharge; denies any recent sinus pain/congestion) and Denies sore throat Cardiovascular Denies chest pain, Denies chest pain at rest, Denies chest pain with activity, Denies diaphoresis, Reports rapid heart rate (when anxious and thinking about things; denies any additional symptoms ), Denies irregular heart rhythm, Denies palpitations, Denies dyspnea, Reports dyspnea on exertion (getting dressed, taki ng showers; improves with deep breathing), Reports orthopnea (reports sleeping with several pillows for years; denies any recent change), Denies paroxysmal nocturnal dyspnea and Denies slow heart rate Respiratory Reports cough (morning cough has a thicker phlegm; reports occasional dry cough), Denies pain with cough, Denies dyspnea, Reports dyspnea on exertion (getting dressed, taking showers; improves with deep breathing) and Denies wheezing Gastrointestinal Denies abdominal pain, Denies melena, Denies hematochezia, Denies constipation, Reports diarrhea (reports chronic diarrhea since 26 yo), Denies nausea and Denies vomiting Genitourinary Denies hematuria, Denies dysuria and Denies urinary urgency Musculoskeletal Reports as per HPI, Denies numbness and Denies tingling Neurologic Denies dizziness, Denies frequent falls, Reports headache(s) (occasional reports a few a month; denies any recent changes ), Denies numbness and Denies tingling Endocrine Denies palpitations Allergic/Immunologic Denies wheezing [facility] Medical History Anxiety (Chronic) Cervical neck pain with evidence of disc disease (Chronic 06/22/13) Chronic obstructive pulmonary disease (Chronic) Chronic pain syndrome (Chronic 12/15/16) History of tobacco abuse (Chronic) Hx of hysterectomy (Chronic) Irritable bowel syndrome with diarrhea (Chronic) LLL pneumonia (Acute ~03/30/18) Surgical History (Updated 10/27/18 @ 11:29 by Jasmin Lloyd) Appendectomy CHEST TUBE Extraction of cataract LAMINECTOMY Right femoral fracture (Resolved 05/09/17) Social History (Updated 10/27/18 @ 09:21 by Jasmin Lloyd) Smoking/Tobacco Use Status: Former Tobacco Use Quit Date: 09/16/13 Pack-years: 50 Alcohol Intake: former Year quit: 1979 Drug use: Never Substance use type: does not use Other: living along; missing her family; lonely Do you feel safe at home: Yes Additional Social history: 16 years ago. Originally from [place], moved here to be near son and grand children. On disability due to chronic back pain. 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 Approximate 75 pack year history of tobacco. No alcohol or illicit drug use endorsed. Meds Home Medications Medication Instructions Recorded Confirmed Type guaifenesin [Mucinex] 600 mg PO DAILY PRN 05/22/15 10/27/18 History Salonpas 1 ea TOPICAL .DAILY X 12 HOURS 11/10/16 10/27/18 History roflumilast 500 mcg tablet 500 mcg PO DAILY #90 tab-cap 02/24/18 10/27/18 Rx albuterol sulfate 90 mcg/actuation 2 puff IH Q6H PRN #6.7 gm 04/25/18 10/27/18 Rx aerosol inhaler sertraline 100 mg tablet 100 mg PO DAILY #90 tab-cap 05/05/18 10/27/18 Rx cyclobenzaprine 5 mg tablet 5 mg PO HS PRN #30 tab 07/14/18 10/27/18 Rx fluticasone fur. 100 mcg-umeclid 1 inh IH DAILY #28 each 08/04/18 10/27/18 Rx 62.5 mcg-vilant 25 mcg inhalat.powder fluticasone fur. 100 mcg-umeclid 1 inh IH DAILY #28 each 08/04/18 10/27/18 Rx 62.5 mcg-vilant 25 mcg inhalat.powder clonazepam 1 mg tablet 1 mg PO BID PRN #60 tab 10/03/18 10/27/18 Rx Allergies Allergy/AdvReac Type Severity Reaction Status Date / Time No Known Allergies Allergy Unverified 10/04/18 10:16 Exam Const General: cooperative and no acute distress [facility] Head: normal to inspection, normocephalic and atraumatic Ears: external ears normal General nose exam: external nose normal and no nasal discharge Face and sinus: face symmetric Mouth: oral mucosae normal, lip normal, tongue normal and moist mucous membranes Teeth and gingiva: other (full upper plate and partial lower plate) Throat: posterior oropharynx normal Eyes General: appearance normal, both eyes and all related structures Pupils: PERRL EOM: EOM intact bilaterally Neck Neck: trachea midline Carotids: normal carotid upstroke Lymphatic: no lymphadenopathy noted Resp Effort & Inspection: normal respiratory effort and able to speak in complete sentences Auscultation: clear to auscultation bilaterally, no rales, no rhonchi, no wheezes and other (she has a dry cough noted during examination) Cardio Heart Sounds: S1 normal, S2 normal and no murmurs Pulses: radial pulses present bilaterally Skin General skin exam: no rashes or lesions noted Extrem Other: Right lower extremity examination: Well-healed surgical incision is noted. Tenderness to palpation over the IT band especially over the distal aspect of the prominent plate that is easily palpable.
== END 2018-10-27 10:09 ==
PROVIDERS: PCP Family Medicine; Visit Provider Orthopaedic Surgery
DX: S72.91XS Unspecified fracture of right femur, sequela (principal); Z01.818 Encounter for other preprocedural examination; T84.84XA Pain due to internal orthopedic prosthetic devices, implants and grafts, initial encounter
CPT/HCPCS: NC

== ENCOUNTER 2018-10-30 06:11 | Day surgery (SDC) | payer MEDICARE, OTHER, MEDICAID, SELFPAY ==
[2018-10-27 09:52] VITALS: BP 112/65; PULSE 106; RESP 20; TEMP 37.5; O2SAT 89
[2018-10-30 06:21] VITALS: BP 107/45; PULSE 98; RESP 19; TEMP 37; O2SAT 92
[2018-10-30] MEDS: Lactated Ringers 1,000 ML 80 ML IV (06:51)
[2018-10-30] MEDS: ceFAZolin 1 GM/50 ML BAG IVPB (07:32)
[2018-10-30 08:56] VITALS: BP 90/46; PULSE 80; RESP 15; TEMP 36.6; O2SAT 96
--- NOTE | 2018-10-30 08:59 | W.PM.DSUDISC ---
Discharge Plan Disposition Patient Disposition: HOME Condition: Good Discharge Details Reason For Visit: Remove painful orthopedic hardware R femur Attending Provider: Raleigh Bob Primary Care Provider: Ralph Rahman Home Meds and New Rx's Prescriptions: New hydrocodone-acetaminophen 5-325 mg tablet 1 tab PO Q6H PRN (Reason: pain) Qty: 14 RF: 0 Continued sertraline 100 mg tablet 100 mg PO DAILY Qty: 90 RF: 3 Trelegy Ellipta 100-62.5-25 mcg blister with device 1 inh IH DAILY Qty: 28 RF: 11 Daliresp 500 mcg tablet 500 mcg PO DAILY Qty: 90 RF: 3 albuterol sulfate [Proventil HFA] 90 mcg/actuation HFA aerosol inhaler 2 puff IH Q6H PRN (Reason: shortness of breath or wheezing) Qty: 6.7 RF: 3 cyclobenzaprine 5 mg tablet 5 mg PO HS PRN (Reason: muscle spasm) Qty: 30 RF: 1 clonazepam 1 mg tablet 1 mg PO BID PRN (Reason: anxiety) Qty: 60 RF: 1 guaifenesin [Mucinex] 600 MG tablet extended release 12hr 600 mg PO DAILY PRN RF: 0 Salonpas 1 EACH adhesive patch,medicated 1 ea Topical .DAILY X 12 HOURS RF: 0 ibuprofen 200 mg Tablet 200 mg PO PRN PRNRF: 0 Discharge Instructions Additional Instructions: Elevate R leg on 1-2 pillows when sitting. Apply ice bag to outside (lateral side) of knee every 4 hours for 1 hour each time to decrease pain and swelling. May remove dressings, shower, and get alma wet after 72 hours. After patting them dry, cover with light gauze so they don't catch on clothing. Use walker or crutches to walk. Should put only the amount of weight that doesn't hurt on R leg. Follow up with in 2 weeks. Take tylenol for mild pain. Take hydrocodone for breakthru pain, if needed. Stand Alone Forms: [facility] Post op Instructions, Joseline Mccall (DSU) Referrals: Raleigh Bob MD [ [facility] STAFF PHYSICIAN] - (f/u in 2 weeks.) Equipment/Supplies: Partial Weight Bearing Crutches Activity:: Activity as Tolerated Remove Dressings/Wound Care:: 72 hours Shower/Bathe:: 72 hours Diet:: As Tolerated Discharge Orders Discharge Orders: Discharge Order (Routine); Ordered 10/30/18 Ordered By: Raleigh Bob DS: Diagnosis Discharge Diagnosis (1) Pain from implanted hardware: Status: Acute
[2018-10-30 09:01] VITALS: BP 94/47; PULSE 78; RESP 13; TEMP 36.6; O2SAT 94
[2018-10-30 09:06] VITALS: BP 94/47; PULSE 78; RESP 13; TEMP 36.6; O2SAT 94
[2018-10-30] MEDS: oxyCODONE 5 mg/Acetaminophen 325 mg TAB 1 TAB PO (09:46)
[2018-10-30 10:05] VITALS: BP 102/66; PULSE 85; RESP 18; TEMP 36.9; O2SAT 93
--- NOTE | 2018-10-30 16:18 | ROE_ITS ---
DATE OF PROCEDURE: October 30, 2018 PREOPERATIVE DIAGNOSIS: Painful orthopedic hardware right distal femur. POSTOPERATIVE DIAGNOSIS: Same. PROCEDURE: Removal of painful hardware, right femur. ANESTHESIA: Spinal. SURGEON: Raleigh Bob M.D. INDICATIONS: This is a 73-year-old white female who sustained a fracture of the distal right femoral metaphysis in early April of 2017. She underwent an open reduction and internal fixation with a l ocking lateral plate in April of 2017. Her fracture has healed uneventfully. The patient however has continued to experience discomfort from the iliotibial band riding over the prominent plate. Sin ce the fracture has been healed for over a year now, removal of the plate was recommended to alleviat e her lateral knee pain. The plate is no longer needed because the fracture is healed. The patient wished to proceed with plate removal. The risks and complications of the procedure were explained to the patient in detail preoperatively. PROCEDURE: The patient was taken to the Operating Room on 10/30/18. She was placed supine on the ope rating table after a spinal anesthetic was administered. A roll was placed under her right buttock a nd then a proximal tourniquet was applied to the right upper thigh. The right lower extremity was pr epped from tourniquet to ankle and draped free in the usual sterile fashion. Under proximal tourniqu et control an incision was made in line with her old scar on the lateral side of the thigh. The inci booker was carried through the skin and subcu to the iliotibial band. The iliotibial band was split in line with the previous direct split and this was carried directly down to the plate. Sharp dissecti on was used to expose the plate. The screws were removed and then the plate was removed. Rongeur wa s then used to remove any fibrous tissue around the screw holes. The wound was irrigated with Betadi ne and saline solution. Using sharp dissection I freed any scar tissue from under the iliotibial ban d so that it could ride over the lateral femoral condyle freely. The wound margins were infiltrated with 0.5% Marcaine with an epinephrine solution. Bleeders were cauterized and a dry field was obtain ed. I closed fibrous tissue distally with interrupted [id number] sutures of #3-0 Vicryl suture. The iliotibial band was then approximated with a running interlocked #1 Vicryl suture material. Th e subcu was approximated with few interrupted #2-0 Vicryl sutures and the skin edges were approximat ed with skin alma. Sterile dressings were applied of Xeroform gauze, sterile gauze 4x4's, ABD pad and wrapped with an Intersorb bandage. I then used a 6-inch JAGRUTI bandage for a light pressure dressi ng. The tourniquet was released; there was no breakthrough bleeding to the dressings. The patient t olerated the procedure well and was discharged to the recovery room in good condition. The patient was later discharged home from the Day Surgery Unit when fully recovered from her spinal anesthetic. She was given instructions to use crutches or a walker for ambulation. She may be weigh tbearing, as tolerated, with the crutch or a walker. She should continue to use the crutches or walk er until she follows up in my office in two weeks. She is instructed to elevate her right leg on 1 t o 2 pillows when sitting. She may remove her dressings, shower and get her incision wet in 72 hours. She is to cover the alma with a light gauze dressing so they don't catch on clothing. She will take Tylenol for mild pain. She was given a prescription for breakthrough pain of Hydrocodone with A PAP 5/325, one tablet every six hours, as needed.
== END 2018-10-30 11:10 | disposition home or self-care (01) ==
PROVIDERS: PCP Family Medicine; Visit Provider Orthopaedic Surgery
PROC: (CPT 20680; principal; 2018-10-30 07:30)
DX: T84.84XA Pain due to internal orthopedic prosthetic devices, implants and grafts, initial encounter (principal); M89.8X5 Other specified disorders of bone, thigh
CPT/HCPCS: 20680; J0690; J1100; J2250; J2405

== ENCOUNTER → 2018-11-14 10:42 | Outpatient (BNVA) | payer MEDICARE, OTHER, MEDICAID, SELFPAY | PROVIDERS: PCP Family Medicine; Referring Provider Family Medicine; Visit Provider Orthopaedic Surgery | DX: Z47.89 Encounter for other orthopedic aftercare (principal); Z87.81 Personal history of (healed) traumatic fracture ==

== ENCOUNTER 2018-12-12 10:23 | Outpatient (CLI) | payer MEDICARE, OTHER, MEDICAID, SELFPAY ==
--- NOTE | 2018-12-12 10:04 | DI.RAD_ITS ---
SYMPTOM/DIAGNOSIS: F/U PLATE REMOVAL RIGHT KNEE: Comparison is made with 13 July 2018 The previously noted hardware in the distal femur has been removed. An old healed distal femoral fracture deformity is seen. The bones appear osteoporotic.
== END 2018-12-12 10:43 ==
PROVIDERS: PCP Family Medicine; Referring Provider Family Medicine; Visit Provider Orthopaedic Surgery
DX: M81.0 Age-related osteoporosis without current pathological fracture (principal); Z87.81 Personal history of (healed) traumatic fracture; Z47.89 Encounter for other orthopedic aftercare; T85.848A Pain due to other internal prosthetic devices, implants and grafts, initial encounter
CPT/HCPCS: 73560

== ENCOUNTER → 2019-02-06 09:52 | Outpatient (BNVA) | payer MEDICARE, OTHER, MEDICAID, SELFPAY | PROVIDERS: PCP Family Medicine; Referring Provider Family Medicine; Visit Provider Orthopaedic Surgery | DX: Z47.89 Encounter for other orthopedic aftercare (principal); T85.848D Pain due to other internal prosthetic devices, implants and grafts, subsequent encounter | CPT/HCPCS: 99213 ==

== ENCOUNTER 2019-04-10 08:25 | Emergency (ER) | payer MEDICARE, OTHER, MEDICAID, SELFPAY ==
[2019-04-10 08:29] VITALS: BP 120/70; PULSE 96; RESP 20; TEMP 36.9; O2SAT 94
--- NOTE | 2019-04-10 08:55 | ED.GENADUL_ITS ---
Discharge Plan Disposition Patient Disposition: HOME Discharge Details Chief Complaint: Nk/Back Pain Clinical Impression: Hematuria, Low back pain Primary Care Provider: Ralph Rahman ED Provider: Tanner Nieves Home Meds and New Rx's Prescriptions: New cyclobenzaprine 5 mg tablet 5 mg PO TID PRN (Reason: muscle spasm) Qty: 15 RF: 0 Continued (DME) Oxygen Tank See Rx Instructions .ROUTE .MEDSUPPLY Qty: 1 RF: 0 Trelegy Ellipta 100-62.5-25 mcg blister with device 1 inh IH DAILY Qty: 28 RF: 11 Daliresp 500 mcg tablet 500 mcg PO DAILY Qty: 90 RF: 3 sertraline 100 mg tablet 100 mg PO DAILY Qty: 90 RF: 3 tramadol 50 mg tablet 50 mg PO Q8H PRN (Reason: pain) Qty: 20 RF: 0 clonazepam 1 mg tablet 1 mg PO BID PRN (Reason: anxiety) Qty: 60 RF: 1 cyclobenzaprine 5 mg tablet 5 mg PO HS PRN (Reason: muscle spasm) Qty: 30 RF: 1 albuterol sulfate [Proventil HFA] 90 mcg/actuation HFA aerosol inhaler 2 puff IH Q6H PRN (Reason: shortness of breath or wheezing) Qty: 6.7 RF: 3 guaifenesin [Mucinex] 600 MG tablet extended release 12hr 600 mg PO DAILY PRN RF: 0 Salonpas 1 EACH adhesive patch,medicated 1 ea Topical .DAILY X 12 HOURS RF: 0 Discontinued meloxicam 7.5 mg tablet 7.5 mg PO BID RF: 0 prednisone 20 mg tablet 40 mg PO DAILY Qty: 10 RF: 0 doxycycline hyclate 100 mg capsule 100 mg PO BID Qty: 14 RF: 0 No Action ibuprofen 200 mg Tablet 200 mg PO PRN PRNRF: 0 Discharge Instructions Instructions: Low Back Strain (ED) Additional Instructions: Please take ibuprofen over the counter. Take 600mg by mouth every 6 hours as needed for pain. Take Flexeril (cyclobenzaprine) as prescribed only for severe muscle spasm. You had trace hematuria in your urine. Be sure to follow with your primary care physician for repeat and additional testing as needed. Please contact your primary care physician to arrange follow-up. Return to the ER for any worsening or new concerning symptoms. Referrals: Ralph Rahman [Primary Care Provider] - Discharge Data Discharge Date/Time-TO BE ENTERED AT DEPARTURE: 04/10/19 08:30 Medical Decision Making 9:05 -- 73yo f here with atraumatic low back pain since yesterday. Tender left paraspinal lumbar back. No inflammatory changes. Neuro intact. Suspect lumbar paraspinal strain and spasm vs less likely disc herniation vs other. Plan to Will treat with toradol IM, valium PO, and lidocaine patch. Consider UTI with foul smelling urine. 10:15 -- UA not consistent with UTI. Few RBCs - will need outpatient followup. Discussed with patient. Pateint reassessed: Some improvement after meds. Plan to continue flexeril, ibuprofen and lidocaine patches. Usual and customary discharge instructions were provided with strict instructions to return to the ER for worsening or new concerning symptoms. HPI General Mode of arrival: ambulatory . Date/Time Provider Initiated Documentation: 04/10/19 08:29 . Limitations to Documentation: no limitations . Information obtained by: patient . HPI Narrative: 73-year-old female presents with chief complaint of low back pain. Patient notes yesterday morning she woke up with right low back pain that worsened with certain positions including bending and twisting. This morning she woke up and notes pain now worse on the left low back. Pain is worse with certain positions including sitting up, bending and twisting. Pain is severe. No associated numbness or tingling. No weakness. No bowel or bladder dysfunction. No abdominal pain. She does note that she has had foul-smelling urine over the past week. No dysuria or hematuria. No sense of urgency. Related Data Home Medications Medication Instructions Recorded Confirmed guaifenesin [Mucinex] 600 mg PO DAILY PRN 05/22/15 04/10/19 Salonpas 1 ea TOPICAL .DAILY X 12 HOURS 11/10/16 04/10/19 fluticasone fur. 100 mcg-umeclid 1 inh IH DAILY #28 each 08/04/18 04/10/19 62.5 mcg-vilant 25 mcg inhalat.powder ibuprofen 200 mg PO PRN PRN 10/30/18 04/10/19 Oxygen #1 each 12/12/18 04/10/19 albuterol sulfate 90 mcg/actuation 2 puff IH Q6H PRN #6.7 gm 02/07/19 04/10/19 aerosol inhaler clonazepam 1 mg tablet 1 mg PO BID PRN #60 tab 02/07/19 04/10/19 cyclobenzaprine 5 mg tablet 5 mg PO HS PRN #30 tab 02/07/19 04/10/19 roflumilast 500 mcg tablet 500 mcg PO DAILY #90 tab-cap 02/07/19 04/10/19 sertraline 100 mg tablet 100 mg PO DAILY #90 tab-cap 02/07/19 04/10/19 tramadol 50 mg tablet 50 mg PO Q8H PRN #20 tab 02/07/19 04/10/19 cyclobenzaprine 5 mg PO TID PRN #15 tab 04/10/19 Previous Rx's Medication Instructions Recorded fluticasone fur. 100 mcg-umeclid 1 inh IH DAILY #28 each 08/04/18 62.5 mcg-vilant 25 mcg inhalat.powder albuterol sulfate 90 mcg/actuation 2 puff IH Q6H PRN #6.7 gm 02/07/19 aerosol inhaler clonazepam 1 mg tablet 1 mg PO BID PRN #60 tab 02/07/19 cyclobenzaprine 5 mg tablet 5 mg PO HS PRN #30 tab 02/07/19 roflumilast 500 mcg tablet 500 mcg PO DAILY #90 tab-cap 02/07/19 sertraline 100 mg tablet 100 mg PO DAILY #90 tab-cap 02/07/19 tramadol 50 mg tablet 50 mg PO Q8H PRN #20 tab 02/07/19 cyclobenzaprine 5 mg PO TID PRN #15 tab 04/10/19 Allergies Allergy/AdvReac Type Severity Reaction Status Date / Time No Known Allergies Allergy Unverified 04/10/19 08:36 General Stated Complaint: Nk/Back Pain MCKAYLA: 3 Review of Systems All systems reviewed & are unremarkable except as noted in HPI and below Constitutional Constitutional: Denies fever(s) and Denies weakness Gastrointestinal Gastrointestinal: Denies abdominal pain Genitourinary Genitourinary: Reports as per HPI Musculoskeletal Musculoskeletal: Reports as per HPI Neurologic Neurologic: Reports as per HPI and Denies weakness [facility] Medical History Anxiety (Chronic) Cervical neck pain with evidence of disc disease (Chronic 06/22/13) Chronic obstructive pulmonary disease (Chronic) Chronic pain syndrome (Chronic 12/15/16) CONTROLLED SUBSTANCE AGREEMENT 10/03/18 History of tobacco abuse (Chronic) Irritable bowel syndrome with diarrhea (Chronic) LLL pneumonia (Acute ~03/30/18) Surgical History Appendectomy CHEST TUBE Extraction of cataract 06/05/15; LEFT EYE; DR. ARAUZ H/O section (Chronic) Hx of hysterectomy (Chronic) LAMINECTOMY CERVICAL SPINE Right femoral fracture (Resolved 05/09/17) ORIF DOS: 05/10/17 Dr. Bob Social History Smoking/Tobacco Use Status: Former Tobacco Use Quit Date: 09/16/13 Pack-years: 50 Alcohol Intake: former Year quit: 1979 Drug use: Never Substance use type: does not use Other: living along; missing her family; lonely Do you feel safe at home: Yes Do you feel safe in your relationship?: No Additional Social history: 16 years ago. Originally from [place], moved here to be near son and grand children. On disability due to chronic back pain. 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 Approximate 75 pack year history of tobacco. No alcohol or illicit drug use endorsed. Exam Const General: cooperative and no acute distress HENMT Mouth: moist mucous membranes Eyes Conjunctivae: normal conjunctivae Sclera: normal sclerae Neck Neck: trachea midline and supple Resp Auscultation: clear to auscultation bilaterally, no rales, no rhonchi and no wheezes Cardio Jugular venous pressure: no JVD Rate: regular rate and not tachycardic Rhythm: regular rhythm GI Palpation: soft, not firm, no guarding, no masses, not rigid and nontender Back/Spine/Pelvis Back: No erythema, No warmth, No ecchymosis and back tenderness (left paraspinal focal ttp, reproduces pain) Thoracic/Lumbar Spine: No thoracic spinal tenderness and No lumbar spinal tenderness Sacrum: no ecchymosis, no erythema and no swelling Skin General skin exam: no rashes or lesions noted Neuro General: alert, awake and tone normal Cognition: normal cognition Motor: muscle tone normal throughout and strength 5/5 throughout (LEs) Sensory Exam: no sensory deficits noted (LEs) and other (no saddle anesth) Extrem General: no edema Course Vital Signs Vital signs: Vital Signs Temperature 36.9 C 04/10/19 08:29 Pulse 96 H 04/10/19 08:29 Respiratory Rate 20 04/10/19 08:29 Blood Pressure 120/70 04/10/19 08:29 Pulse Oximetry 94 L 04/10/19 08:29 Temperature 36.9 C 04/10/19 08:29 Temperature Source Temporal Artery Scan 04/10/19 08:29 Pulse 96 H 04/10/19 08:29 Respiratory Rate 20 04/10/19 08:29 Respiratory Effort Non-Labored 04/10/19 08:33 Blood Pressure 120/70 04/10/19 08:29 Blood Pressure Position Supine 04/10/19 08:29 Pulse Oximetry 94 L 04/10/19 08:29 Oxygen Delivery Method Room Air 04/10/19 08:29 Oxygen Flow Rate 0 04/10/19 08:29 Pain Level 10 04/10/19 08:34
[2019-04-10] MEDS: diazePAM 2 MG TAB PO (09:01)
[2019-04-10] MEDS: Lidocaine 5% Patch 1 PATCH TP (09:02)
[2019-04-10] MEDS: Ketorolac 30 MG/ML VIAL IM (09:02)
[2019-04-10 09:23] LABS: Bilirubin Negative (Negative); Blood Trace-intact (Negative); Clarity Clear (Clear); Glucose Negative (Negative); Ketones Negative (Negative); Leukocyte Esterase Negative (Negative); Nitrite Negative (Negative); Specific Gravity 1.015 (1.005-1.025); Urobilinogen 0.2 EU/dL (Up TO 0.2); pH 6.5 (5-8)
[2019-04-10 09:36] LABS: Epithelial Cells Rare HPF (Negative); WBC Negative HPF (0-5)
[2019-04-10 09:37] LABS: Bacteria Negative HPF (Negative); C & S Indicated? No; Casts Negative LPF (Negative); Crystals Negative HPF (Negative); Mucus Negative (Negative)
[2019-04-10 10:33] VITALS: BP 128/76; PULSE 88; RESP 18; O2SAT 94
== END 2019-04-10 08:30 | disposition home or self-care (01) ==
PROVIDERS: Emergency Provider Student in an Organized Health Care Education/Training Program; PCP Family Medicine
DX: M54.5 Low back pain (principal); G89.29 Other chronic pain; R31.9 Hematuria, unspecified; J44.9 Chronic obstructive pulmonary disease, unspecified; F17.210 Nicotine dependence, cigarettes, uncomplicated
CPT/HCPCS: 96372; 99284; 81003; 81015; 99283; J1885

== ENCOUNTER 2019-04-15 16:56 | Inpatient (IN) | payer MEDICARE, OTHER, MEDICAID, SELFPAY ==
[2019-04-15] VITALS (8 sets, daily range): BP systolic 100–125; BP diastolic 41–69; PULSE 91–118; RESP 16–20; TEMP 36.8; O2SAT 76–94
--- NOTE | 2019-04-15 17:29 | ED.GENADUL_ITS ---
Discharge Plan Disposition Patient Disposition: [facility] INPATIENT Condition: Stable Discharge Details Chief Complaint: Nk/Back Pain Clinical Impression: Back pain Admit Date/Time: 04/17/19 17:31 Admit Provider: Ever Wheat Attending Provider: Ever Wheat Primary Care Provider: Ralph Rahman ED Provider: Filiberto Boone Hospital Course Hospital Course: Laney was admitted to the medical surgical floor out of the emergency department for pain control and management of her T12 compression fracture. She was able to mobilize physical therapy although with some pain. She has chronic shoulder pain which did limit her ability to mobilize but she was good and short distances. We did have to increase her pain regimen to 10 mg of oxycodone. She was on her baseline amount of oxygen and use of inhalers without any significant episodes of hypoxia. She has tolerated narcotics in the past. She was voiding spontaneously. She was deemed safe for discharge to home by physical therapy and was observed to be able to be independent with transfers by nursing, although with some limitations due to pain. Discharge Instructions Additional Instructions: Discharge Instructions Activity: The most important activity is to move slowly and avoid bending and twisting. It is good to move but you should use your walker for support. You are best in a recline position for sleep rather than laying flat but you have no restrictions on your positioning. Medications: - You should take Tylenol and an anti-inflammatory Celebrex as your primary pain control medications - You have been prescribed a stronger pain medication Oxycodone for breakthrough pain, take as needed as prescribed. - You also have a muscle relaxant, Cyclobenzaprine, which you may take for pain as well. - If you have constipation you should take Dulcolax/Colace or Miralax (both [id number]). It takes most people 3-4 days to have a bowel movement. - Given the medications, you have been prescribed Narcan for emergency use in case of opiod oversedation or overdose. Follow-up: [address] Wheat or PCP 1. Encounter Date and Reason I certify that LANEY BOWER was seen by Ever Wheat MD on 04/18/19 and that I had a [id number] encounter with this patient that meets the physician face to face encounter requirements. 2. Clinical Findings Supporting Skilled Need and Homebound Status I certify that home health services are medically necessary, include either intermittent [place] [facility] and/or physical/speech therapy, and that this patient is homebound in that absences from the home require considerable and taxing effort and are infrequent or of short duration, or are attributable to the need to receive medical care. [X] (a) Attached documentation from encounter provides clinical findings supporting skilled need and homebound status (including what assistance patient requires to leave the home). The encounter with the patient was in whole, or in part, for the following medical condition, which is the primary reason for home health care: BACK PAIN Custodial: Laney would benefit from nursing services to assist with multiple medications for treating pain from her T12 compression fracture along with the setting of her many medical issues and chronic lung disease. Physical Therapy: Laney would benefit from physical therapy to assist with ADL and home management of her T12 compression fracture. Therapy services should focus on mobilization and core strengthening as pain improves. Speech Therapy: Homebound: Laney is homebound. She is unable to leave her home unassisted. She has significant weakness and limitations in ambulation. 3. Certification and Authentication I certify that I composed the above information based on my clinical judgement relating to this patient's medical condition and, if applicable, clinical findings communicated to me by the NPP or inpatient physician who performed the Home Health Referral. All further orders will be obtained through Dr. Wheat Forms: Nursing Discharge Form Referrals: Ever Wheat MD [ [facility] STAFF PHYSICIAN] - (Call the office on morning to schedule a follow up appointment to be seen in 4 weeks) Discharge Data Discharge Date/Time-TO BE ENTERED AT DEPARTURE: 04/16/19 03:55 Medical Decision Making <Tanner Nieves MD - Last Filed: 04/28/19 10:46> 19:15 -- 73-year-old female here with low back pain over the past 6 days. Patient now with difficulty ambulating. No saddle anesthesia. She has been constipated recently. Conservative treatment including tramadol, Flexeril, ibuprofen, Tylenol, not resolving pain. Considered acute surgical process. Patient was given Valium, Toradol IM, prednisone 40mg and lidocaine patch. CT of the lumbar spine interpreted by radiology:IMPRESSION: 1. Moderate superior endplate compression fracture of T12 demonstrating a few acute fracture lines and mild paraspinous edema favor an acute or subacute compression fracture with about 40% loss of anterior vertebral body height and mild 3 mm retropulsion. This may be producing slight mass effect on the ventral surface of the distal cord. 2. Chronic appearing mild superior endplate compression deformity of L2 which is mildly progressed since 10/18/2016, but appears chronic currently. There is 3 mm retropulsion which is new since 2017 without significant canal or foraminal stenosis. 3. Diffuse osteopenia. 4. Mild central canal stenosis and moderate bilateral lateral recess stenosis at L4-L5 secondary to 3 mm disc bulge and superimposed facet/ligamentum flavum hypertrophy. Also mild bilateral foraminal stenosis. Slight 2 mm degenerative anterolisthesis at this level. 5. There is a large amount of stool distributed throughout the colon suggesting constipation. 6. Moderate-sized hiatal hernia. The visualized distal esophagus and stomach are otherwise unremarkable. I called and spoke with on-call orthopedics, Dr. Wheat and discussed ED presentation and course including diagnostics. He recommends transfer to tertiary care facility for formal spine evaluation and brace. I called [facility] and requested transfer. Imaging sent for review. Awaiting callback. -- Care signed out to Dr. Boone. <Filiberto Boone, DO - Last Filed: 04/15/19 21:50> The case was signed out to me by my colleague Dr. Tanner Nieves pending conversation with [facility]. Please refer to his HPI for assessment plan and initial physical exam findings. Patient presents with back pain, that was present non-traumatically 1 to 2 weeks ago, treated appropriately and conservatively initially, however she is failed this treatment. She returns today with continued slight worsening pain. CT scan evidence shows superior endplate deformity fracture of T12 with mild retropulsion of 3 mm. There is also small amount of 3 mm retropulsion at L2. However clinically the patient appears to be doing well and is stable. No bowel or bladder incontinence. She does have mild to moderate constipation though. She does have some subjective weakness of her legs she does demonstrate good muscle strength otherwise. No evidence of significant saddle anesthesia. Clinically at this time she does appear stable. I did contact [facility] discussed the case with Dr. Lopez, after extensive discussion with both her and her attending Dr. Dobson it was recommended that the patient remain here at [facility] have a spine MRI. 1 of the concerns is that we would not be able to immediately order a back brace, however I did contact Dr. Wheat discussed this all with him. He has agreed to give the patient here and manage her. Of note there are other confounding variables right now of hazardous roads with significant snow. All these risks and benefits were thoroughly discussed with the [facility] team, and the recommendation stands. Patient will be admitted here overnight, for further evaluation. Patient appears clinically stable and currently right now does not show clinical symptoms of cauda equina syndrome. I have extensively reviewed the treatment plan with the patient. I have addressed all patient concerns at this time. I have also discussed the plan with the admitting physician and they agree with the current assessment and plan and have agreed to assume responsibility for the patient. All parties demonstrate verbal understanding and agreement with our assessment and plan at this time. HPI <Tanner Nieves MD - Last Filed: 04/28/19 10:46> General Mode of arrival: ambulatory . Date/Time Provider Initiated Documentation: 04/15/19 17:18 . Limitations to Documentation: no limitations . Information obtained by: patient . HPI Narrative: 73-year-old female presents with chief complaint of low back pain. Patient notes 04/09 morning she woke up with right low back pain that worsened with certain positions including bending and twisting. Pain is worse with certain positions including sitting up, bending and twisting. Pain is severe. Patient is now having difficulty ambulating secondary to pain. No associated numbness or tingling. No focal weakness. No bowel or bladder dysfunction. No abdominal pain. No dysuria or hematuria. No sense of urgency. Patient was seen here in the emergency department on 04/10/2019 for low back pain. She did have trace hematuria noted on urinalysis. She was prescribed Flexeril and ibuprofen which she has been taking without relief. PCP added tramadol which is also not helped. Related Data Home Medications Medication Instructions Recorded Confirmed guaifenesin [Mucinex] 600 mg PO DAILY PRN 05/22/15 04/15/19 Salonpas 1 ea TOPICAL .DAILY X 12 HOURS 11/10/16 04/15/19 fluticasone fur. 100 mcg-umeclid 1 inh IH DAILY #28 each 08/04/18 04/15/19 62.5 mcg-vilant 25 mcg inhalat.powder Oxygen #1 each 12/12/18 04/10/19 albuterol sulfate 90 mcg/actuation 2 puff IH Q6H PRN #6.7 gm 02/07/19 04/15/19 aerosol inhaler clonazepam 1 mg tablet 1 mg PO BID PRN #60 tab 02/07/19 04/15/19 roflumilast 500 mcg tablet 500 mcg PO DAILY #90 tab-cap 02/07/19 04/15/19 sertraline 100 mg tablet 100 mg PO DAILY #90 tab-cap 02/07/19 04/15/19 acetaminophen 1,000 mg PO Q8H PRN #90 tab 04/18/19 bisacodyl [Dulcolax (bisacodyl)] 5 mg PO DAILY PRN #7 tab 04/18/19 celecoxib 200 mg PO BID PRN #60 cap 04/18/19 cyclobenzaprine 5 mg PO BID PRN #28 tab 04/18/19 naloxone [Narcan] 1 spray KELL Q2-3M PRN #2 each 04/18/19 oxycodone 10 mg PO Q4H PRN #30 tab 04/18/19 Previous Rx's Medication Instructions Recorded fluticasone fur. 100 mcg-umeclid 1 inh IH DAILY #28 each 08/04/18 62.5 mcg-vilant 25 mcg inhalat.powder albuterol sulfate 90 mcg/actuation 2 puff IH Q6H PRN #6.7 gm 02/07/19 aerosol inhaler clonazepam 1 mg tablet 1 mg PO BID PRN #60 tab 02/07/19 roflumilast 500 mcg tablet 500 mcg PO DAILY #90 tab-cap 02/07/19 sertraline 100 mg tablet 100 mg PO DAILY #90 tab-cap 02/07/19 acetaminophen 1,000 mg PO Q8H PRN #90 tab 04/18/19 bisacodyl [Dulcolax (bisacodyl)] 5 mg PO DAILY PRN #7 tab 04/18/19 celecoxib 200 mg PO BID PRN #60 cap 04/18/19 cyclobenzaprine 5 mg PO BID PRN #28 tab 04/18/19 naloxone [Narcan] 1 spray KELL Q2-3M PRN #2 each 04/18/19 oxycodone 10 mg PO Q4H PRN #30 tab 04/18/19 Allergies Allergy/AdvReac Type Severity Reaction Status Date / Time No Known Allergies Allergy Unverified 04/15/19 17:17 General Stated Complaint: FlankPain MCKAYLA: 3 Review of Systems <Tanner Nieves MD - Last Filed: 04/28/19 10:46> Musculoskeletal Musculoskeletal: Reports as per HPI Neurologic Neurologic: Reports as per HPI PFSH <Tanner Nieves MD - Last Filed: 04/28/19 10:46> Medical History Anxiety (Chronic) Cervical neck pain with evidence of disc disease (Chronic 06/22/13) Chronic obstructive pulmonary disease (Chronic) Chronic pain syndrome (Chronic 12/15/16) CONTROLLED SUBSTANCE AGREEMENT 10/03/18 History of tobacco abuse (Chronic) Irritable bowel syndrome with diarrhea (Chronic) LLL pneumonia (Acute ~03/30/18) Surgical History Appendectomy CHEST TUBE Extraction of cataract 06/05/15; LEFT EYE; DR. ARAUZ H/O section (Chronic) Hx of hysterectomy (Chronic) LAMINECTOMY CERVICAL SPINE Right femoral fracture (Resolved 05/09/17) ORIF DOS: 05/10/17 Dr. Bob Social History Smoking/Tobacco Use Status: Former Tobacco Use Quit Date: 09/16/13 Pack-years: 50 Alcohol Intake: former Year quit: 1979 Drug use: Never Substance use type: does not use Other: living along; missing her family; lonely Do you feel safe at home: Yes Do you feel safe in your relationship?: No Additional Social history: 16 years ago. Originally from [place], moved here to be near son and grand children. On disability due to chronic back pain. 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 Approximate 75 pack year history of tobacco. No alcohol or illicit drug use endorsed. Exam <Tanner Nieves MD - Last Filed: 04/28/19 10:46> Const General: cooperative and no acute distress HENMT Head: normocephalic and atraumatic Mouth: moist mucous membranes Eyes Conjunctivae: normal conjunctivae Sclera: normal sclerae Resp Auscultation: clear to auscultation bilaterally, no rales, no rhonchi and no wheezes Cardio Jugular venous pressure: no JVD Rate: regular rate and not tachycardic Rhythm: regular rhythm GI Palpation: soft, not firm, no guarding, no masses, not rigid and nontender Back/Spine/Pelvis Cervical Spine: No cervical spinal tenderness Thoracic/Lumbar Spine: paraspinal tenderness (L>R) Sacroiliac joints: on the left tender to palpation Skin General skin exam: no rashes or lesions noted Neuro General: alert, awake, oriented x3 and tone normal Motor: strength 5/5 throughout (Bilateral lower extremities) Sensory Exam: no sensory deficits noted (No saddle anesthesia, distal sensation intact bilateral lower extremities) Extrem General: no edema Psych Appearance: grossly normal Mental Status: mental status grossly normal Course <Tanner Nieves MD - Last Filed: 04/28/19 10:46> Vital Signs Vital signs: Vital Signs Temperature 36.8 C 04/15/19 17:13 Pulse 91 H 04/15/19 17:13 Respiratory Rate 20 04/15/19 17:13 Blood Pressure 125/69 04/15/19 17:13 Pulse Oximetry 92 L 04/15/19 17:13 Temperature 36.8 C 04/15/19 17:13 Temperature Source Skin 04/15/19 17:13 Pulse 91 H 04/15/19 17:13 Respiratory Rate 20 04/15/19 17:13 Respiratory Effort 04/15/19 17:13 Blood Pressure 125/69 04/15/19 17:13 Blood Pressure Position Sitting 04/15/19 17:13 Pulse Oximetry 92 L 04/15/19 17:13 Oxygen Delivery Method Room Air 04/15/19 17:13 Oxygen Flow Rate 0 04/15/19 17:13 Pain Level 10 04/15/19 17:13 Sign Out <Tanner Nieves MD - Last Filed: 04/28/19 10:46> Sign Out Data: Sign Out Comment: Plan to discuss transfer with [facility] spine. Images sent. Awaiting call back. Last updated by Tanner Nieves MD at 04/15/19 19:20
[2019-04-15] MEDS: Ketorolac 30 MG/ML VIAL IM (17:38)
[2019-04-15] MEDS: Lidocaine 5% Patch 1 PATCH TP (17:38)
[2019-04-15] MEDS: predniSONE 20 MG TAB 40 MG PO (17:38)
[2019-04-15] MEDS: diazePAM 5 MG TAB PO (17:38)
--- NOTE | 2019-04-15 18:01 | DI.CT_ITS ---
EXAM: CT LUMBAR SPINE SI JOINTS WO CLINICAL HISTORY: severe pain left>right TECHNIQUE: The exam was performed according to the usual protocol without contrast. COMPARISON: LUMBAR SPINE WITHOUT CONTRAST from 10/18/2016 FINDINGS: There is a new superior compression fracture deformity of T12. There is loss of approximately 30-40 percent of the height of the vertebral body anteriorly. 3 millimeters of retropulsion is seen at the posterior superior aspect. Mild edema is seen in the paraspinous soft tissues. There is an old compression deformity of the superior endplate of L2. This has mildly progressed sin ce the prior examination from 10/18/2016. 3 millimeters of retropulsion is seen at the superior aspe ct of the posterior vertebral body. No significant central spinal canal or neural foraminal stenosis is present. No other acute fractures or subluxations are seen in the lumbar spine. There is diffuse osteopenia. At L5-S1, degenerative changes are present. There is no significant central spinal canal or neural f oraminal stenosis. L4-5, there is a mild diffuse disc bulge. There is hypertrophy of the ligamentum flavum and degenera tive changes of the facets. These all contribute to cause mild narrowing of the central spinal canal . There is moderate bilateral neural foraminal stenosis. At L3-L4, mild degenerative changes are present. No significant central spinal canal or neural eleni inal stenosis is present. At L2-L3, no significant central spinal canal or neural foraminal stenosis is present. There is a moderate amount of retained stool in the colon suggesting constipation. There is a modera te size hiatal hernia. IMPRESSION: 1. Findings of an acute/subacute compression fracture of the superior endplate of T12 with approximat ulices 30-40 percent of loss of the height of the vertebral body anteriorly. Mild retropulsion is seen into the spinal canal. 2. Slight progression of the old superior endplate compression fracture of L2 since 10/18/2016. 3. Multilevel degenerative changes in the lumbar spine as described above.
[2019-04-15 18:18] LABS: Bilirubin Negative (Negative); Blood Trace-intact (Negative); Clarity Clear (Clear); Glucose Negative (Negative); Ketones Negative (Negative); Leukocyte Esterase Negative (Negative); Nitrite Negative (Negative); Specific Gravity 1.015 (1.005-1.025); Urobilinogen 0.2 EU/dL (Up TO 0.2)
--- NOTE | 2019-04-15 18:29 | DI.VRAD_ITS ---
PROCEDURE INFORMATION: Exam: CT Lumbar Spine Without Contrast Exam date and time: 04/15/2019 5:59 PM Age: 73 years old Clinical indication: Other: Severe pain, left>right; Prior surgery; Surgery date: 6+ months TECHNIQUE: Imaging protocol: Computed tomography images of the lumbar spine without contrast. Radiation optimization: All CT scans at this facility use at least one of these dose optimization techniques: automated exposure control; mA and/or kV adjustment per patient size (includes targeted exams where dose is matched to clinical indication); or iterative reconstruction. COMPARISON: CT LUMBAR SPINE WITHOUT CONTRAST 10/18/2016 7:45 PM FINDINGS: Vertebrae: Diffuse osteopenia. Mild superior endplate compression fracture of L2 again noted. This has progressed mildly since the comparison exam on 10/18/2016, however the current CT appearance would favor that this represents chronic fracture, with no acute fracture lines or paraspinous edema identified. There is 3 mm retropulsion of the posterior superior vertebral margin which is new since 2017. There is mild-moderate superior endplate compression fracture of T12 which is new since 10/18/2016, with about 40% loss of anterior vertebral body height. A few suspected acute fracture lines are identified in the superior endplate and there is mild paraspinous edema, suggesting that this represents an acute or subacute compression injury. 3 mm retropulsion of the posterior-superior vertebral margin. T11-T12: The 3 mm retropulsion of the T12 posterior superior vertebral margin interest is slight flattening of the ventral surface of the distal cord. No significant central canal stenosis, AP thecal sac dimension 12 mm. No foraminal stenosis. L1-L2: Mildly expanded disc configuration related to chronic endplate compression and Schmorl's node formation. Mild anterior spurring. The 3 mm retropulsion at this level is again noted, without significant central canal stenosis or neural foraminal stenosis. L3-L4: Mild anterior spurring. 2 mm disc bulge. L4-L5: Slight 2 mm degenerative retrolisthesis is unchanged. Mild disc space narrowing. Mild anterior spurring. Moderate bilateral degenerative facet/ligamentum flavum hypertrophy. 3 mm disc bulge. The combination of findings produces mild central canal stenosis with AP thecal sac dimension of 9.2 mm at the midline, with moderate lateral recess stenosis bilaterally. L5-S1: Mild bilateral degenerative facet hypertrophy. Discs/Spinal canal/Neural foramina: See Vertebrae Finding. Other bones/joints: No blastic or lytic lesions. Mediastinum: Moderate-sized hiatal hernia. The visualized distal esophagus and stomach are otherwise unremarkable. Stomach and bowel: Large amount of stool distributed throughout the colon suggesting constipation. Vasculature: Moderate atherosclerotic aortoiliac calcification without aneurysm. Soft tissues: Visualized paraspinal soft tissues are normal. Other findings: T12-L1: Normal. L2-L3: Normal. IMPRESSION: 1. Moderate superior endplate compression fracture of T12 demonstrating a few acute fracture lines and mild paraspinous edema favor an acute or subacute compression fracture with about 40% loss of anterior vertebral body height and mild 3 mm retropulsion. This may be producing slight mass effect on the ventral surface of the distal cord. 2. Chronic appearing mild superior endplate compression deformity of L2 which is mildly progressed since 10/18/2016, but appears chronic currently. There is 3 mm retropulsion which is new since 2017 without significant canal or foraminal stenosis. 3. Diffuse osteopenia. 4. Mild central canal stenosis and moderate bilateral lateral recess stenosis at L4-L5 secondary to 3 mm disc bulge and superimposed facet/ligamentum flavum hypertrophy. Also mild bilateral foraminal stenosis. Slight 2 mm degenerative anterolisthesis at this level. 5. There is a large amount of stool distributed throughout the colon suggesting constipation. 6. Moderate-sized hiatal hernia. The visualized distal esophagus and stomach are otherwise unremarkable. Dictated and Authenticated by: Guillaume Wade MD. Ordering:FRANCESCO Hart MD
[2019-04-15 18:56] LABS: Bacteria Negative HPF (Negative); C & S Indicated? No; Casts Negative LPF (Negative); Crystals Negative HPF (Negative); Epithelial Cells Few HPF (Negative); Mucus Negative (Negative); Other Cells Negative (Negative); RBC Negative HPF (0-2)
--- NOTE | 2019-04-15 23:34 | NUR.NOTE ---
Nursing Note: Patient laying in bed, resting. Waiting room number for admit. No c/o or requests at this time
[2019-04-16] VITALS (27 sets, daily range): BP systolic 69–110; BP diastolic 33–71; PULSE 68–100; RESP 16–19; TEMP 36.4–37.1; O2SAT 88–96
[2019-04-16] MEDS: clonazePAM 1 MG TAB PO ×2 (00:46→10:36)
[2019-04-16] MEDS: Lactated Ringers 1,000 ML 1000 ML IV (03:54)
[2019-04-16] MEDS: Ketorolac 15 MG/ML VIAL IM ×3 (06:38→17:25)
[2019-04-16] MEDS: Normal Saline Flush 10 ML SYR IVP (06:38)
--- NOTE | 2019-04-16 07:14 | OCONE_ITS ---
Date of service: 04/16/19 Time of Service: 07:14 History of Present Illness History of Present Illness Chief Complaint: Low back pain Narrative: Laney is a 73-year-old female who has chronic pain primarily in the shoulders. She had previous cervical spine surgery. Over the last 2 weeks she has had acute onset of low back pain. She was seen in the emergency department 4 days ago and was given anti-inflammatories and an antispasmodic. However, she has had progressive difficulties with mobilization. She feels subjective weakness. She denies any bowel or bladder changes but she has not been able to have a bowel movement and does report some lower abdominal pain. She did have a bowel movement last night on admission after some administration of medications and does feel some relief from this. She denies any numbness or tingling into the legs. She did have a severe fracture of her distal femur on the right side 2 years ago which caused some residual weakness and dysfunction of the right lower extremity. She does have some chronic shoulder pain which she feels is residual from previous cervical laminectomy procedure done years ago. At one point, she was taking multiple medications for her pain, however, she did di scontinue most of his medications in the last year. She has severe COPD which is stable with multiple inhalers and nebulizers. No new chest pain or shortness of breath. No fevers no chills. During this most recent visit to the emergency department she was diagnosed with a T12 compression fracture. There was some concern about 2 to 3 mm of posterior displacement, possibly representing a burst type fracture. I initially thought she would do well with a brace and therefore recommend referral to [facility]. However, for a host different reasons she was not accepted and therefore I offered to admit her for pain control and mobilization with physical therapy. She does have a walker at home which she uses on occasion. Consults Consult date: 04/15/19 Requesting physician: Filiberto Boone Consult Reason T12 fracture Assessment and Plan Assessment and plan (1) T12 compression fracture: Status: Acute Assessment and plan: Laney is a 73-year-old with an acute T12 compression fracture. She does have osteopenia by diagnosis likely osteoporosis. She has been able to mobilize. I did discuss the use of a brace or an abdominal binder. However, she is concerned about her respiratory status using 1 of these devices. Therefore, she would like to try mobilizing with physical therapy and a walker. I do think we could try a brace or an abdominal binder if she has a hard time mobilizing. I do think she will need a stronger pain medication for period of time while this fracture continues to heal. I do not see any clinical symptoms suggesting of cord compression although there is a concern of thecal sac impingement at the level of this compression fracture. If she has any worsening lower leg symptoms, numbness, weakness, or instability, then an MRI would be indicated. We will mobilize with physical therapy and reassess later today. Hopefully, she will be able to discharge to home. Qualifiers: Encounter type: initial encounter Qualified Code(s): S22.080A - Wedge compression fracture of T11-T12 vertebra, initial encounter for closed fracture Review of Systems All systems reviewed & are unremarkable except as noted in HPI and below PFSH Medical History Anxiety (Chronic) Cervical neck pain with evidence of disc disease (Chronic 06/22/13) Chronic obstructive pulmonary disease (Chronic) Chronic pain syndrome (Chronic 12/15/16) CONTROLLED SUBSTANCE AGREEMENT 10/03/18 History of tobacco abuse (Chronic) Irritable bowel syndrome with diarrhea (Chronic) LLL pneumonia (Acute ~03/30/18) Surgical History Appendectomy CHEST TUBE Extraction of cataract 06/05/15; LEFT EYE; DR. ARAUZ H/O section (Chronic) Hx of hysterectomy (Chronic) LAMINECTOMY CERVICAL SPINE Right femoral fracture (Resolved 05/09/17) ORIF DOS: 05/10/17 Dr. Bob Social History Smoking/Tobacco Use Status: Former Tobacco Use Quit Date: 09/16/13 Pack-years: 50 Alcohol Intake: former Year quit: 1979 Drug use: Never Substance use type: does not use Other: living along; missing her family; lonely Do you feel safe at home: Yes Do you feel safe in your relationship?: No Additional Social history: 16 years ago. Originally from [place], moved here to be near son and grand children. On disability due to chronic back pain. 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 Approximate 75 pack year history of tobacco. No alcohol or illicit drug use endorsed. Exam Narrative Exam Narrative: Laney is resting comfortably in the hospital bed. She is in no acute distress. Alert and oriented x3. Head is normocephalic and atraumatic. Cervical range of motion is not limited. She does have some re-created shoulder pain when she rotates to either side. This is all per her baseline. There is some mild pain to palpation of the posterior elements from the lower thoracic spine through the upper lumbar spine. This is actually worse in the paraspinal region. Attempted hip flexion actively causes pain. Attempted sitting from a laying position causes pain, again in the TL junction region. Passive range of motion of her hips causes no pain. Straight leg raise test is negative. Sensation is intact to light touch from L3-S1. Motor is 5 out of 5 to L4, L5, and S1. Proximal muscle testing is difficult due to pain although she is able to demonstrate active hip flexion, active knee extension. Results Last Vital Signs Temp 36.5 C 04/16/19 04:32 Pulse 90 04/16/19 04:32 Resp 19 04/16/19 04:32 BP 102/67 04/16/19 04:32 Pulse Ox 93 L 04/16/19 04:32 Labs Labs: Laboratory Results - last 24 hr 04/15/19 17:50 Urine Color Yellow Urine Clarity Clear Urine pH 5.0 Ur Specific [place] 1.015 Urine Protein Negative Urine Ketones Negative Urine Blood Trace-intact H Urine Nitrite Negative Urine Bilirubin Negative Urine Urobilinogen 0.2 Ur Leukocyte Esterase Negative Urine RBC Negative Urine WBC 3-5 Ur Epithelial Cells Few Urine Crystals Negative Urine Bacteria Negative Urine Casts Negative Urine Mucus Negative Urine Other Negative Ur Culture Indicated? No Urine Glucose Negative Imaging Imaging Studies: CT scan of the lumbar spine demonstrates old compression fracture of L2. There is approximate 30% compression seen anteriorly with a small amount of posterior displacement of the superior endplate. There is also what appears to be an acute T12 fracture with 3 fracture planes visible through the body extending towards the posterior cortex. The CT stops right at the level of the superior aspect of the fracture. At this level there is about 2 mm of some posterior displacement. There is no significant narrowing of the spinal canal at this point.
[2019-04-16] MEDS: Sertraline 50 MG TAB 100 MG PO (09:02)
[2019-04-16] MEDS: Roflumilast 500 MCG TAB PO (09:02)
[2019-04-16] MEDS: oxyCODONE 5 MG TAB PO ×3 (11:04→22:22)
--- NOTE | 2019-04-16 12:21 | PT.INIE ---
Date of service: 04/16/19 Time of Service: 09:42 PT Notes Visit Reasons: BACK PAIN Physical Therapy Inpatient Initial Evaluation Date: 04/16/2019 Referring Doctor: Watters MD PT Orders: PT CONSULT: Safety consult for DC Precautions: Fall. Standard. Weight bearing as tolerated. Patient Profile/Admitting Diagnosis: Patient is a 73-year-old female who presented to the ED on 04/15/2019 with chief complaints of neck and back pain that has had become worse over the past 6 days prior to admission and difficulty with ambulation. Patient is diagnosed with a T12 compression fracture, osteopenia, and ambulatory dysfunction with referral for physical therapy to assess safety of discharge to home. PMHX: Medical History Anxiety (Chronic) Cervical neck pain with evidence of disc disease (Chronic 06/22/13) Chronic obstructive pulmonary disease (Chronic) Chronic pain syndrome (Chronic 12/15/16) CONTROLLED SUBSTANCE AGREEMENT 10/03/18 History of tobacco abuse (Chronic) Irritable bowel syndrome with diarrhea (Chronic) LLL pneumonia (Acute ~03/30/18) Surgical History Appendectomy CHEST TUBE Extraction of cataract 06/05/15; LEFT EYE; DR. ARAUZ H/O section (Chronic) Hx of hysterectomy (Chronic) LAMINECTOMY CERVICAL SPINE Right femoral fracture (Resolved 05/09/17) ORIF, DOS: 05/10/[address] Bob Social History/Home Situation: Laney lives alone in a 1 floor apartment with 2 steps to enter and a rail on the right side going up. Son lives in [facility] and provides needed help for patient. She states that she has been able to perform household ambulation holding onto furnitures as she does not feel steady. She has a front wheeled walker that she says that she does not use often. She gets Meals on Wheels. She is independent with all other aspects of ADLs prior to admission. Equipment Owned/DME: 4-wheeled walker Subjective: Patient reports that she does not feel she has full control of her right leg all the time when she is walking and could not tell when it would give way on her. She does admit that she has not had any falls for the past twelve months. She denies headache, chest pain, and dizziness throughout PT session. She is agreeable to PT coming in to continue working with her with improving gait stability. Objective: General Observation: Oxygen supplementation at 1 L/min via NC. Mental Status: Alert and oriented as to person, place, and time Pain: Moderate pain on low back area with ambulation activity at 5/10which subsided with rest ROM: Right Upper Extremity: Shoulder Flexion WFL. Shoulder abduction WFL. Elbow flexion WFL. Wrist flexion WFL. Opening and closing of hand WFL. Left Upper Extremity: Shoulder Flexion WFL. Shoulder abduction WFL. Elbow flexion WFL. Wrist flexion WFL. Opening and closing of hand WFL. Right Lower Extremity: Hip flexion WFL. Hip abduction WFL. Knee flexion WFL. Ankle dorsiflexion WFL. Ankle plantarflexion WFL. Left Lower Extremity: Hip flexion WFL. Hip abduction WFL. Knee flexion WFL. Ankle dorsiflexion WFL. Ankle plantarflexion WFL. Strength: Right Upper Extremity: Shoulder flexors 4/5. Shoulder abductors 4/5. Elbow flexors 4/5. Elbow extensors 4/5. Diesel Service Journeyman strong. Left Upper Extremity: Shoulder flexors 4/5. Shoulder abductors 4/5. Elbow flexors 4/5. Elbow extensors 4/5. Diesel Service Journeyman strong. Right Lower Extremity: Hip flexors 4-/5. Hip abductors 4-/5. Knee flexors 4-/5. Knee extensors 3-/5. Ankle dorsiflexors 4/5. Ankle plantarflexors 4/5. Left Lower Extremity: Hip flexors 4/5. Hip abductors 4/5. Knee flexors 4/5. Knee extensors 4/5. Ankle dorsiflexors 5/5. Ankle plantarflexors 5/5. Sensation: Intact as to pain and pressure on bilateral lower extremities. No report of numbness and tingling on bilateral lower extremities. Bed Mobility/Transfers: Rolling CGA Supine to sit CGA Sit to supine CGA Sit to stand CGA Stand to sit CGA Bed to chair CGA Chair to bed CGA Gait: Patient tolerated 60 feet of level surface ambulation with front wheeled walker with full weight bearing requiring minimal assist due to right knee buckling and giving way x 5 throughout gait activity. Patient did report right LE becoming tired at the end of activity and had to do one standing rest to steady self. Balance: Static Sitting: Normal Dynamic Sitting: Good Static Standing: Fair Dynamic Standing: Fair Special Tests: Mobility Limitations Standardized Measure [facility]-PAC 6 clicks Basic Mobility Inpatient Short Form: Raw Score: 18 CMS Score: 47% deficit Informed Consent/Education: Patient instructed in purpose of PT consult and plan of care. Assessment: Patient is a 73-year-old female who presented to the ED on 04/15/2019 with chief complaints of neck and back pain that has had become worse over the past 6 days prior to admission and difficulty with ambulation. Patient is diagnosed with a T12 compression fracture, osteopenia, and ambulatory dysfunction with referral for physical therapy to assess safety of discharge to home. Right knee buckling episode may increase her risk for falling at home. Patient also presented with mild to moderate moderate confusion which may limit her ability to perform medication management at home. Patient presents with clinical signs and symptoms consistent with current/admitting diagnoses that have resulted to mobility limitations, gait instability, generalized weakness, and impairment of motor control as demonstrated by the following impairment level findings: 1. Decreased strength to B LE major muscle groups 2. Impaired sitting/standing balance 3. Impaired activity tolerance Impairments are contributing to the following functional limitations: 1. Inability to safely ambulate without assistive device and physical assistance 2. Increase completion time for mobility ADL performance 3. Increased fall risk 4. Inability to negotiate steps alone safely Patient is assessed as a [id number] moderate complexity based on the following: History: 73-year-old female who lives alone with impairment level findings, functional limitations in [facility] CMS score of 47% deficit now presenting with increased risk for falling Examination: Demonstrable impairment in strength, balance, and range of motion with underlying impairments and functional limitations as documented above Presentation: Evolving Decision Makin moderate complexity Goals: Goals X1 week 1. Supine-Sit independent 2. Sit-Supine independent 3. Sit-Stand independent 4. Stand-Sit independent 5. Bed-Chair independent 6. Chair-Bed independent 7. Independent gait on level surface with use of least restrictive device for at least 100 feet without report of pain nor dyspnea 8. Independent stair negotiation while holding onto bilateral rails for at least 2 steps with a rail on the right going up without report of pain nor dyspnea 9. Independent with home exercise program 10. Good static and dynamic standing balance/tolerance Plan of Care/Treatment Plan: 1-2x/day, 7 days/week x 1 week. Plan of care has been reviewed with the OPERATING SYSTEMS SPECIALIST providing the service under Physical Therapy direction. Initiate Physical Therapy intervention for strengthening, bed mobility, transfers, gait, stairs, balance training, use of assistive device. DISCHARGE RECOMMENDATIONS: Patient will benefit from home health PT services in order to progress mobility level using 4 wheeled walker, assess home safety, identify additional equipment needs, and establish a functional maintenance program that will increase ability of patient to remain at home. TREATMENT CODE/TIME: 86080 x 33 minutes beginning at 9:42 AM. Thank you very much for this referral. Teresita Lopez PT, DPT, CLT [facility] [place], [place]
--- NOTE | 2019-04-16 15:40 | PT.INTREAT ---
Date of service: 04/16/19 Time of Service: 15:40 PT Notes Visit Reasons: BACK PAIN Inpatient Physical Therapy Treatment Note [facility] Date: 04/16/19 PRECAUTIONS: Fall SUBJECTIVE: Laney is agreeable to participating in PT. She reports that she is feeling about the same as she was this morning. OBJECTIVE: Instructed patient in donning/doffing knee immobilizer. Patient would benefit from continued practice. PAIN: Patient c/o back pain with bed mobility and gait training BED MOBILITY/TRANSFERS Rolling: Log Rolling to R with significant cueing due to Supine?sit: SBA with HOB flat Sit?supine: S with HOB flat Sit-stand: CGA Stand-sit: CGA GAIT Assistive Device: FWW Weight bearing: Full Assist: SBA Distance: 60' +140' Deviation: Knee immobilizer on R, c/o LBP, no knee buckling, slow pace STAIRS: Up/down 3?4 and 2?6 using the rails and a step to pattern with supervision ASSESSMENT: Patient tolerated session with complaint of increased LBP with bed mobility and gait training. She was able to tolerate a progression in gait distance with FWW support and SBA. She was able to tolerate gait training with knee immobilizer, demonstrating no knee buckling. She would benefit from continued gait and bed mobility training for improved mobility with decreased pain. PLAN: Continue with PT's POC TREATMENT CODE/TIME: 40 minutes; [id number] x3
--- NOTE | 2019-04-16 17:46 | PHARADMIT ---
Addendum entered by Marilynn Marroquin 04/17/19 16:42: Pharmacy Note Subjective pt's own trelegy inhaler brought in and checked by pharmacy for use Objective VS okay no labs Assessment ketorolac changed from IM to IVP oxycodone dose increased to 10 mg Plan possible discharge tomorrow Original Note: Admission Pharmacy Clinical Review back pain Code Status Full Code Current Weight 58.967 kg Renally Cleared and Narrow Therapeutic Index Meds Crcl ~58.3 mL/min current meds okay QTc Value / Action Taken none BP Control, Fever BP 110/71 afebrile Electrolytes reviewed no labs DVT Prophylaxis none Opiate Usage / Scheduled Bowel Regimen Ordered prn/prn Plt/SCr for Heparin / Enoxaparin no labs INR for Warfarin n/a H/H stable, WBC/Bands no labs Antibiotic appropriateness none Cultures and Sensitivities none Surgical ABX d/c within 24 hr n/a DM control / Insulin Dosing n/a Heart Failure (Check EF%) (JAGRUTI's, B-Block, Diuretics) none IV to PO Switch n/a Home Meds Reviewed -multiple anticholinergic meds- cyclobenzaprine, umeclidinium -multiple ENTRY LEVEL MARKETING ASSISTANT depressants: tramadol, cyclobenzaprine, clonazepam -multiple immunosupressants- roflumilast, trelegy -sertraline may enhance the antiplatelet effects of ibuprofen; ibuprofen may diminish the therapeutic effect of sertraline Home Meds Not Ordered ibuprofen (has ketorolac ordered), salonpas, tramadol (has oxycodone ordered) Comments
--- NOTE | 2019-04-16 19:02 | INITIAL_ITS ---
- If Service Date Differs Date of service: 04/16/19 Time of Service: 19:02 Care Management Initial Assess REASON FOR HOSPITALIZATION:: T-12 compression fracture PAST MEDICAL HISTORY/PAST SURGICAL HISTORY:: Medical History . Anxiety (Chronic). Cervical neck pain with evidence of disc disease (Chronic 06/22/13). Chronic obstructive pulmonary disease (Chronic). Chronic pain syndrome (Chronic 12/15/16). CONTROLLED SUBSTANCE AGREEMENT 10/03/18. History of tobacco abuse (Chronic). Irritable bowel syndrome with diarrhea (Chronic). LLL pneumonia (Acute ~03/30/18). Surgical History . Appendectomy. CHEST TUBE. Extraction of cataract. 06/05/15; LEFT EYE; DR. ARAUZ. H/O section (Chronic). Hx of hysterectomy (Chronic). LAMINECTOMY. CERVICAL SPINE. Right femoral fracture (Resolved 05/09/17). ORIF. DOS: 05/10/17. Dr. Bob PREVIOUS FUNCTIONAL STATUS/SOCIAL/FAMILY SUPPORTS:: Laney lives alone in an apartment in [place]. She has one son who lives closeby and he and his are very supportive. Laney also has four grandchildren ages, 7, 5,4 and 6 months that she sees often. Laney has a history of back injuries and surgeries which have limited her ability to leave the home very often. She has a walker which she uses on occasion but states it hurts her neck. She also uses a quad cane which she finds more helpful. CURRENT FUNCTIONAL STATUS:: Laney was sitting up in bed when CM met with her. She was pleasant and engaged readily in conversation. Dr. Wheat came to see Laney when MARIA was visiting and stated that he would keep her one more night to ensure that her pain was well controlled. He examined her and found no neurological deficits in the right leg that tends to give out on her. She will likely need new PT and OT at discharge. ADVANCE DIRECTIVES:: COLST form on file Has patient been provided with information about the portal?: Yes Did the patient sign up for the portal?: No CODE STATUS:: Full Code INSURANCE COVERAGE / FINANCIAL ISSUES:: Medicare. Medicaid. [place] [employer] CURRENT HOME/COMMUNITY SERVICES/EQUIPMENT:: walker, quad cane and Meals on Wheels PRIMARY CARE PHYSICIAN:: Ralph Rahman POTENTIAL DISCHARGE NEEDS:: new home PT and OT. Follow up with PCP and discharge plan of care PATIENT/FAMILY EDUCATION NEEDS:: Discharge plan, limitaqtions, follow up plan, Ask me Three TRANSPORTATION:: via private vehicle with family PLAN:: Laney will be discharged home with new PT and OT. She will follow up with her PCP and discharge plan of care. CM will continue to support patient, family and discharge planning needs.
[2019-04-17] MEDS: Normal Saline Flush 10 ML SYR IVP (00:19)
[2019-04-17] MEDS: oxyCODONE 5 MG TAB PO ×3 (02:47→09:04)
[2019-04-17 03:38] VITALS: BP 115/74; PULSE 69; RESP 19; TEMP 36.6; O2SAT 96
[2019-04-17 07:35] VITALS: BP 121/77; PULSE 87; RESP 19; TEMP 36.4; O2SAT 90
[2019-04-17] MEDS: Sertraline 50 MG TAB 100 MG PO (08:34)
[2019-04-17] MEDS: Acetaminophen 500 MG TAB PO ×2 (08:35→17:28)
[2019-04-17] MEDS: Roflumilast 500 MCG TAB PO (08:35)
[2019-04-17] MEDS: clonazePAM 1 MG TAB PO ×2 (10:03→19:41)
--- NOTE | 2019-04-17 11:25 | W.NUTCONSULT ---
Date of service: 04/17/19 Time of Service: 11:25 Nutritional Consult ASSESSMENT: 73 yo female admitted with T12 compression fracture and ongoing leg pain. Following regular diet with adequate intake. BMI wnl for age. Not considered at nutritional risk at this time. MONITORING AND EVALUATION: po intake and weight trends Time Spent in Nutritional Counseling and Treatment: 0 time spent face to face
[2019-04-17 11:27] VITALS: BP 104/63; PULSE 78; RESP 18; TEMP 36.8; O2SAT 92
--- NOTE | 2019-04-17 11:50 | DI.CT_ITS ---
EXAM: CT THORACIC SPINE WO CLINICAL HISTORY: Evaluate T12 compression fracture TECHNIQUE: CT examination of thoracic spine was performed utilizing multislice acquisition and multi planar reconstruction. COMPARISON: CHEST ONE VIEW IN RAD DEPT from 05/09/2017 CT LUMBAR SPINE SI JOINTS WO from 04/15/2019 FINDINGS: There are severe emphysematous changes of the lungs and small bilateral pleural effusions are present . There is intrapulmonary scarring in multiple locations including right lung apex. No gross medias tinal or hilar adenopathy. There is a 10-20 percent anterior compression fracture of the vertebral body of T12. There is extens ion into the posterior cortex superiorly with slight retropulsion of a localized superior portion of vertebral cortex by about 3 millimeters. No other fracture identified in the thoracic region. No si gnificant compromise of the spinal canal. IMPRESSION: 10-20 percent anterior compression fracture of T12 vertebral body, minimal extension into the posteri or cortex with 3 millimeter retropulsion. No additional significant findings.
[2019-04-17] MEDS: oxyCODONE 5 MG TAB 10 MG PO ×3 (12:50→23:08)
[2019-04-17] MEDS: Cyclobenzaprine 10 MG TAB 5 MG PO (12:59)
--- NOTE | 2019-04-17 14:06 | PGE_ITS ---
Date of Service Date of service: 04/17/19 Time of Service: 14:06 Assessment and Plan Assessment and plan (1) T12 compression fracture: Status: Acute Assessment and plan: Laney continues to have some pain from the T12 compression fracture. She seems to be better with 10mg Oxycodone. However, she is concerned about her tolerance of the medication, although she has been on chronic narcotics in the past. We will continue to monitor her. She will have pain but she seems to be mobilizing well although she reports poorer performance than nursing and PT. She has no concerning findings and therefore I expect she should be able to d/c to home with [facility]. We will watch her overnight to make sure that she tolerates the 10mg Oxycodone well and continues to mobilize independently. The knee immobilizer is not required when she ambulates but it is to provide support and stability. Qualifiers: Encounter type: initial encounter Qualified Code(s): S22.080A - Wedge compression fracture of T11-T12 vertebra, initial encounter for closed fracture Subjective Subjective Interval history since last seen: Laney does report that the pain has been difficult to manage, so she was increaed to 10mg and this has helped. She has most of her pain in the midback and in both shoulders. The shoulders are chronic. She denies any numbness or tingling. She has had no change in bowel or bladder routines. She has been able to mobilize wtih nursing and PT. She finds the right knee is better with the immobilizer. Exam Narrative Exam Narrative: Sitting in the hospital bed. Appears comfortable. In no acute distress. Continued pain to palpation of the midback, TL junction area. SILT L3-S1. Objective Objective Clinical Data: Vital Signs Temperature 36.8 C 04/17/19 11:27 Temperature Source Tympanic 04/17/19 11:27 Pulse 78 04/17/19 11:27 Pulse Rhythm Regular 04/17/19 08:00 Respiratory Rate 18 04/17/19 11:27 Respiratory Effort 04/17/19 08:00 Respiratory Depth Normal 04/17/19 08:00 Respiratory Pattern Normal 04/17/19 08:00 Blood Pressure 104/63 04/17/19 11:27 Blood Pressure Mean 48 04/16/19 03:30 Blood Pressure Position Sitting 04/15/19 17:13 Pulse Oximetry 92 L 04/17/19 11:27 Oxygen Delivery Method Nasal Cannula 04/17/19 11:27 Oxygen Flow Rate 1 04/17/19 11:27 Pain Level 10 04/17/19 12:50 Comment 04/16/19 05:02 Intake & Output 04/16/19 04/17/19 04/17/19 23:59 11:59 23:59 Intake Total 240 / 1390 250 / 250 Balance 240 / 1240 250 / 250 Intake: Oral 240 / 390 250 / 250 Other: Urine Color Yellow Pale Yellow Urine Appearance Clear Clear Stool Size Small Stool Characteristics Soft Brown Voiding Methods Toilet Toilet Laboratory Results Urine Color Yellow (Yellow) 04/15/19 17:50 Urine Clarity Clear (Clear) 04/15/19 17:50 Urine pH 5.0 (5-8) 04/15/19 17:50 Ur Specific [place] 1.015 (1.005-1.025) 04/15/19 17:50 Urine Protein Negative mg/dL (Negative) 04/15/19 17:50 Urine Ketones Negative mg/dL (Negative) 04/15/19 17:50 Urine Blood Trace-intact (Negative) H 04/15/19 17:50 Urine Nitrite Negative (Negative) 04/15/19 17:50 Urine Bilirubin Negative (Negative) 04/15/19 17:50 Urine Urobilinogen 0.2 EU/dL (Up TO 0.2) 04/15/19 17:50 Ur Leukocyte Esterase Negative (Negative) 04/15/19 17:50 Urine RBC Negative HPF (0-2) 04/15/19 17:50 Urine WBC 3-5 HPF (0-5) 04/15/19 17:50 Ur Epithelial Cells Few HPF (Negative) 04/15/19 17:50 Urine Crystals Negative HPF (Negative) 04/15/19 17:50 Urine Bacteria Negative HPF (Negative) 04/15/19 17:50 Urine Casts Negative LPF (Negative) 04/15/19 17:50 Urine Mucus Negative (Negative) 04/15/19 17:50 Urine Other Negative (Negative) 04/15/19 17:50 Ur Culture Indicated? No 04/15/19 17:50 Urine Glucose Negative mg/dL (Negative) 04/15/19 17:50 Objective Narrative Objective Narrative: Thoracic spine CT does show a primary anterior compression fracture of T12. There is some prominence of the superior endplate posteriorly but I'm not convinced this represents a true burst fracture and retropulsion.
[2019-04-17 15:50] VITALS: BP 99/62; PULSE 79; RESP 16; TEMP 36.1; O2SAT 93
--- NOTE | 2019-04-17 15:59 | PT.INTREAT ---
Date of service: 04/17/19 Time of Service: 15:59 PT Notes Visit Reasons: BACK PAIN Inpatient Physical Therapy Treatment Note [facility] Date: 04/17/19 PRECAUTIONS: Fall, LBP SUBJECTIVE: Laney states that she is feeling a little better than she was earlier this morning. She is agreeable to participating in PT. OBJECTIVE: PAIN: Patient c/o LBP with bed mobility and donning knee immobilizer BED MOBILITY/TRANSFERS Rolling L/R: Log Rolling with supervision Supine-sit: S with HOB flat Sit-supine: S with HOB flat Sit-stand: SBA Stand-sit: SBA GAIT Assistive Device: FWW Weight bearing: Full Assist: SBA Distance: 300' Deviation: No seated rest, knee immobilizer R, no c/o LBP Patient performed donning knee immobilizer brace, independently ASSESSMENT: Patient tolerated session well, with c/o LBP with bed mobility and donning knee immobilizer. She was able to demonstrate log rolling and bed mobility with supervision, only. PLAN: Continue with PT's POC TREATMENT CODE/TIME: 40 minutes; [id number] x3
--- NOTE | 2019-04-17 17:42 | PDOC.CMPRO ---
- If Service Date Differs Date of service: 04/17/19 Time of Service: 17:42 Care Management Progress Note S/O: Asia was sitting up in bed when CM met with her. She stated that she is still having a lot of pain. Dr. Wheat came to see her early in the morning and said he would return. In the afternoon he revisited Laney and stated that he would keep her one more night. Laney was very pleased to hear that and hopes to be feeling well enough to go home tomorrow. A: Laney is a 73year old female admitted on 04/15/19 with back pain. P:Laney will be discharged home with new PT and OT. She will follow up with her PCP and discharge plan of care. CM will continue to support patient, family and discharge planning needs.
[2019-04-17 20:28] VITALS: BP 136/77; PULSE 82; RESP 20; TEMP 36.5; O2SAT 92
[2019-04-18 00:32] VITALS: BP 108/70; PULSE 81; RESP 19; TEMP 35.6; O2SAT 92
[2019-04-18] MEDS: oxyCODONE 5 MG TAB 10 MG PO ×2 (03:47→07:52)
[2019-04-18] MEDS: Cyclobenzaprine 10 MG TAB 5 MG PO (03:47)
[2019-04-18 03:54] VITALS: BP 132/69; PULSE 79; RESP 19; TEMP 36.5; O2SAT 91
[2019-04-18 07:20] VITALS: BP 114/72; PULSE 84; RESP 25; TEMP 36.6; O2SAT 93
[2019-04-18] MEDS: Roflumilast 500 MCG TAB PO (07:49)
[2019-04-18] MEDS: Sertraline 50 MG TAB 100 MG PO (07:49)
[2019-04-18] MEDS: clonazePAM 1 MG TAB PO (07:51)
[2019-04-18] MEDS: Acetaminophen 500 MG TAB PO (07:51)
--- NOTE | 2019-04-18 08:02 | DSE_ITS ---
Date of service: 04/18/19 Time of Service: 08:02 DS: Diagnosis Discharge Diagnosis (1) T12 compression fracture: Status: Acute Discharge Plan Disposition Patient Disposition: HOME W/HOME HEALTH SERVICE Condition: Stable Discharge Details Chief Complaint: Nk/Back Pain Clinical Impression: Back pain Reason For Visit: BACK PAIN Admit Date/Time: 04/17/19 17:31 Admit Provider: Ever Wheat Attending Provider: Ever Wheat Primary Care Provider: Ralph Rahman ED Provider: Filiberto Boone Hospital Course Hospital Course: Laney was admitted to the medical surgical floor out of the emergency department for pain control and management of her T12 compression fracture. She was able to mobilize physical therapy although with some pain. She has chronic shoulder pain which did limit her ability to mobilize but she was good and short distances. We did have to increase her pain regimen to 10 mg of oxycodone. She was on her baseline amount of oxygen and use of inhalers without any significant episodes of hypoxia. She has tolerated narcotics in the past. She was voiding spontaneously. She was deemed safe for discharge to home by physical therapy and was observed to be able to be independent with transfers by nursing, although with some limitations due to pain. Home Meds and New Rx's Prescriptions: New celecoxib 200 mg capsule 200 mg PO BID PRN (Reason: pain) Qty: 60 RF: 1 acetaminophen 500 mg tablet 1,000 mg PO Q8H PRN (Reason: pain) Qty: 90 RF: 3 Narcan 4 mg/actuation spray,non-aerosol 1 spray KELL Q2-3M PRN (Reason: opioid overdose) Qty: 2 RF: 0 oxycodone 10 mg tablet 10 mg PO Q4H PRN (Reason: pain) Qty: 30 RF: 0 bisacodyl [Dulcolax (bisacodyl)] 5 mg tablet,delayed release (DR/EC) 5 mg PO DAILY PRN (Reason: constipation) Qty: 7 RF: 0 Continued (DME) Oxygen Tank See Rx Instructions .ROUTE .MEDSUPPLY Qty: 1 RF: 0 Trelegy Ellipta 100-62.5-25 mcg blister with device 1 inh IH DAILY Qty: 28 RF: 11 Daliresp 500 mcg tablet 500 mcg PO DAILY Qty: 90 RF: 3 sertraline 100 mg tablet 100 mg PO DAILY Qty: 90 RF: 3 clonazepam 1 mg tablet 1 mg PO BID PRN (Reason: anxiety) Qty: 60 RF: 1 albuterol sulfate [Proventil HFA] 90 mcg/actuation HFA aerosol inhaler 2 puff IH Q6H PRN (Reason: shortness of breath or wheezing) Qty: 6.7 RF: 3 guaifenesin [Mucinex] 600 MG tablet extended release 12hr 600 mg PO DAILY PRN RF: 0 Salonpas 1 EACH adhesive patch,medicated 1 ea Topical .DAILY X 12 HOURS RF: 0 cyclobenzaprine 5 mg tablet 5 mg PO BID PRN (Reason: Spasms) Qty: 28 RF: 1 Discontinued tramadol 50 mg tablet 50 mg PO Q8H PRN (Reason: pain) Qty: 20 RF: 0 cyclobenzaprine 5 mg tablet 5 mg PO HS PRN (Reason: muscle spasm) Qty: 30 RF: 1 ibuprofen 200 mg Tablet 200 mg PO PRN PRNRF: 0 cyclobenzaprine 5 mg tablet 5 mg PO TID PRN (Reason: muscle spasm) Qty: 15 RF: 0 Discharge Instructions Additional Instructions: Discharge Instructions Activity: The most important activity is to move slowly and avoid bending and twisting. It is good to move but you should use your walker for support. You are best in a recline position for sleep rather than laying flat but you have no restrictions on your positioning. Medications: - You should take Tylenol and an anti-inflammatory Celebrex as your primary pain control medications - You have been prescribed a stronger pain medication Oxycodone for breakthrough pain, take as needed as prescribed. - You also have a muscle relaxant, Cyclobenzaprine, which you may take for pain as well. - If you have constipation you should take Dulcolax/Colace or Miralax (both [id number]). It takes most people 3-4 days to have a bowel movement. - Given the medications, you have been prescribed Narcan for emergency use in case of opiod oversedation or overdose. Follow-up: [address] Wheat or PCP 1. Encounter Date and Reason I certify that LANEY Purvis DIANEdieVALERI was seen by Ever Wheat MD on 04/18/19 and that I had a [id number] encounter with this patient that meets the physician face to face encounter requirements. 2. Clinical Findings Supporting Skilled Need and Homebound Status I certify that home health services are medically necessary, include either intermittent jail and/or physical/speech therapy, and that this patient is homebound in that absences from the home require considerable and taxing effort and are infrequent or of short duration, or are attributable to the need to receive medical care. [X] (a) Attached documentation from encounter provides clinical findings supporting skilled need and homebound status (including what assistance patient requires to leave the home). The encounter with the patient was in whole, or in part, for the following medical condition, which is the primary reason for home health care: BACK PAIN Senior Living: Laney would benefit from nursing services to assist with multiple medications for treating pain from her T12 compression fracture along with the setting of her many medical issues and chronic lung disease. Physical Therapy: Laney would benefit from physical therapy to assist with ADL and home management of her T12 compression fracture. Therapy services should focus on mobilization and core strengthening as pain improves. Speech Therapy: Homebound: Laney is homebound. She is unable to leave her home unassisted. She has significant weakness and limitations in ambulation. 3. Certification and Authentication I certify that I composed the above information based on my clinical judgement relating to this patient's medical condition and, if applicable, clinical findings communicated to me by the NPP or inpatient physician who performed the Home Health Referral. All further orders will be obtained through Dr. Wheat Referrals: Ever Wheat MD [ [facility] STAFF PHYSICIAN] - Activity:: Activity as Tolerated Equipment/Supplies:: Walker Diet:: As Tolerated Discharge Orders Discharge Orders: Discharge Order (Routine); Ordered 04/18/19 Ordered By: Ever Wheat DS: Summary Status at Discharge Functional status at discharge: uses cane/walker Overall status at discharge: patient is not back to baseline Mental Status: mental status grossly normal Speech and Movement: speech and movement normal Mood: congruent mood Affect: normal affect Exam Narrative Exam Narrative: Sitting in the hospital bed. Able to reposition. Pain along the midline and paraspinal region of the T-L junction. SILT L3-S1. L4-S1 5/5 motor strength. Psych Mental Status: mental status grossly normal Speech and Movement: speech and movement normal Mood: congruent mood Affect: normal affect DS: Data Vitals/I&O Vitals and I&O: Vital Signs Temperature 36.5 C 04/18/19 03:54 Temperature Source Tympanic 04/18/19 03:54 Pulse 79 04/18/19 03:54 Pulse Rhythm Regular 04/18/19 03:40 Respiratory Rate 19 04/18/19 03:54 Respiratory Effort 04/18/19 03:40 Respiratory Depth Normal 04/18/19 03:40 Respiratory Pattern Normal 04/18/19 03:40 Blood Pressure 132/69 04/18/19 03:54 Blood Pressure Mean 48 04/16/19 03:30 Blood Pressure Position Sitting 04/15/19 17:13 Pulse Oximetry 91 L 04/18/19 03:54 Oxygen Delivery Method Nasal Cannula 04/18/19 00:32 Oxygen Flow Rate 1 04/18/19 00:32 Pain Level 10 04/18/19 07:52 Comment 04/16/19 05:02 Intake & Output 04/17/19 04/17/19 04/18/19 11:59 23:59 11:59 Intake Total 250 / 740 490 / 740 Balance 250 / 740 490 / 740 Intake: Oral 250 / 740 490 / 740 Other: Urine Color Pale Yellow Yellow Urine Appearance Clear Clear Clear Voiding Methods Toilet Toilet [facility] Medical History Anxiety (Chronic) Cervical neck pain with evidence of disc disease (Chronic 06/22/13) Chronic obstructive pulmonary disease (Chronic) Chronic pain syndrome (Chronic 12/15/16) CONTROLLED SUBSTANCE AGREEMENT 10/03/18 History of tobacco abuse (Chronic) Irritable bowel syndrome with diarrhea (Chronic) LLL pneumonia (Acute ~03/30/18) Surgical History Appendectomy CHEST TUBE Extraction of cataract 06/05/15; LEFT EYE; DR. ARAUZ H/O section (Chronic) Hx of hysterectomy (Chronic) LAMINECTOMY CERVICAL SPINE Right femoral fracture (Resolved 05/09/17) ORIF DOS: 05/10/17 Dr. Bob Social History Smoking/Tobacco Use Status: Former Tobacco Use Quit Date: 09/16/13 Pack-years: 50 Alcohol Intake: former Year quit: 1979 Drug use: Never Substance use type: does not use Other: living along; missing her family; lonely Do you feel safe at home: Yes Do you feel safe in your relationship?: No Additional Social history: 16 years ago. Originally from [place], moved here to be near son and grand children. On disability due to chronic back pain. 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 Approximate 75 pack year history of tobacco. No alcohol or illicit drug use endorsed.
--- NOTE | 2019-04-18 09:33 | PDOC.CMDIS ---
LACE Index Scoring Tool - Questions: Length of Stay (in days): 3 (12) Acuity (Admit via E.D.?): Yes Comorbidities: Chronic Pulmonary Disease E.D. Visits: 4 - Answers: Total Score: 12 Risk of Readmission: High Risk Care Management Discharge Reason for Hospitalization: T-12 compression fracture Discharge Plan: Laney will discharge home with new orders for VNA: PT and OT; CM faxed notification to [facility]. She will follow up with her PCP and discharge plan of care as prescribed. Laney will transport home via private vehicle with family. Patient/Family Education Needs: Review discharge instructions, discuss increased services supports in home setting, and additional options should Laney struggle after returning home. Services Needed at Discharge: Home Health Care Services (New PT/OT)
[2019-04-18 11:17] VITALS: BP 103/69; PULSE 85; RESP 18; TEMP 36.4; O2SAT 90
[2019-04-18] MEDS: Celecoxib 200 MG CAP 400 MG PO (11:58)
--- NOTE | 2019-04-18 12:14 | NUR.NOTE ---
Nursing Note: Patient c/o of 10/10 pain at approximately 1030[address] Dr Wheat notified and order for PO Celebrex obtained. When this RN entered the room, knocked on the door and said hello shortly after 1100 the patient was found to be sound asleep. Patient slept soundly until lunch was served. Patient stated at that time that her abdominal pain was gone and her back pain was 3/10 at rest and 9/10 with movement. The one time Celebrex was given
--- NOTE | 2019-04-19 09:50 | PT.INDS ---
Date of service: 04/19/19 Time of Service: 09:52 PT Notes Visit Reasons: BACK PAIN Inpatient Physical Therapy Discharge Summary Dates: 04/16/2019 Dates of Service: 04/16/2019 and 04/17/2019 This is a clinical summary of care provided on the duration of dates listed above. No charge was made in the completion of this documentation. Referring Doctor: Watters MD PT Orders: PT CONSULT: Safety consult for DC Precautions: Fall. Standard. Weight bearing as tolerated. Patient Profile/Admitting Diagnosis: Patient is a 73-year-old female who presented to the ED on 04/15/2019 with chief complaints of neck and back pain that has had become worse over the past 6 days prior to admission and difficulty with ambulation. Patient is diagnosed with a T12 compression fracture, osteopenia, and ambulatory dysfunction with referral for physical therapy to assess safety of discharge to home. PMHX: Medical History Anxiety (Chronic) Cervical neck pain with evidence of disc disease (Chronic 06/22/13) Chronic obstructive pulmonary disease (Chronic) Chronic pain syndrome (Chronic 12/15/16) CONTROLLED SUBSTANCE AGREEMENT 10/03/18 History of tobacco abuse (Chronic) Irritable bowel syndrome with diarrhea (Chronic) LLL pneumonia (Acute ~03/30/18) Surgical History Appendectomy CHEST TUBE Extraction of cataract 06/05/15; LEFT EYE; DR. ARAUZ H/O section (Chronic) Hx of hysterectomy (Chronic) LAMINECTOMY CERVICAL SPINE Right femoral fracture (Resolved 05/09/17) ORIF, DOS: 05/10/[address] Bob Social History/Home Situation: Laney lives alone in a 1 floor apartment with 2 steps to enter and a rail on the right side going up. Son lives in [facility] and provides needed help for patient. She states that she has been able to perform household ambulation holding onto furnitures as she does not feel steady. She has a front wheeled walker that she says that she does not use often. She gets Meals on Wheels. She is independent with all other aspects of ADLs prior to admission. Equipment Owned/DME: 4-wheeled walker Subjective: NT Objective: General Observation: NT Mental Status: NT Pain: NT ROM: Right Upper Extremity: Shoulder Flexion WFL. Shoulder abduction WFL. Elbow flexion WFL. Wrist flexion WFL. Opening and closing of hand WFL. Left Upper Extremity: Shoulder Flexion WFL. Shoulder abduction WFL. Elbow flexion WFL. Wrist flexion WFL. Opening and closing of hand WFL. Right Lower Extremity: Hip flexion WFL. Hip abduction WFL. Knee flexion WFL. Ankle dorsiflexion WFL. Ankle plantarflexion WFL. Left Lower Extremity: Hip flexion WFL. Hip abduction WFL. Knee flexion WFL. Ankle dorsiflexion WFL. Ankle plantarflexion WFL. Strength: Right Upper Extremity: Shoulder flexors 4/5. Shoulder abductors 4/5. Elbow flexors 4/5. Elbow extensors 4/5. Resident Care Spec strong. Left Upper Extremity: Shoulder flexors 4/5. Shoulder abductors 4/5. Elbow flexors 4/5. Elbow extensors 4/5. Resident Care Spec strong. Right Lower Extremity: Hip flexors 4-/5. Hip abductors 4-/5. Knee flexors 4-/5. Knee extensors 3-/5. Ankle dorsiflexors 4/5. Ankle plantarflexors 4/5. Left Lower Extremity: Hip flexors 4/5. Hip abductors 4/5. Knee flexors 4/5. Knee extensors 4/5. Ankle dorsiflexors 5/5. Ankle plantarflexors 5/5. Sensation: Intact as to pain and pressure on bilateral lower extremities. No report of numbness and tingling on bilateral lower extremities. Bed Mobility/Transfers: Rolling supervision Supine to sit supervision Sit to supine supervision Sit to stand SBA Stand to sit SBA Bed to chair SBA Chair to bed SBA Gait: Patient tolerated 200 feet of level surface ambulation with front wheeled walker with full weight bearing requiring SBA without complaints of LBP. Balance: Static Sitting: Normal Dynamic Sitting: Normal Static Standing: Normal Dynamic Standing: Fair Assessment: Patient is a 73-year-old female who presented to the ED on 04/15/2019 with chief complaints of neck and back pain that has had become worse over the past 6 days prior to admission and difficulty with ambulation. Patient is diagnosed with a T12 compression fracture, osteopenia, and ambulatory dysfunction with referral for physical therapy to assess safety of discharge to home. Right knee buckling episode may increase her risk for falling at home. Patient also presented with mild to moderate moderate confusion which may limit her ability to perform medication management at home. Patient continues to present with clinical signs and symptoms consistent with current/admitting diagnoses that have resulted to mobility limitations, gait instability, generalized weakness, and impairment of motor control as demonstrated by the following impairment level findings: 1. Decreased strength to B LE major muscle groups 2. Impaired sitting/standing balance 3. Impaired activity tolerance Impairments continue to contribute to the following functional limitations: 1. Inability to safely ambulate without assistive device and physical assistance 2. Increase completion time for mobility ADL performance 3. Increased fall risk 4. Inability to negotiate steps alone safely Goals: Goals X1 week 1. Supine-Sit independent 2. Sit-Supine independent 3. Sit-Stand independent 4. Stand-Sit independent 5. Bed-Chair independent 6. Chair-Bed independent 7. Independent gait on level surface with use of least restrictive device for at least 100 feet without report of pain nor dyspnea 8. Independent stair negotiation while holding onto bilateral rails for at least 2 steps with a rail on the right going up without report of pain nor dyspnea 9. Independent with home exercise program 10. Good static and dynamic standing balance/tolerance DISCHARGE RECOMMENDATIONS: Patient will benefit from home health PT services in order to progress mobility level using 4 wheeled walker, assess home safety, identify additional equipment needs, and establish a functional maintenance program that will increase ability of patient to remain at home. TREATMENT CODE/TIME: RI Thank you very much for this referral. Teresita Lopez PT, DPT, CLT [facility] [place], [place]
== END 2019-04-18 13:35 | disposition home health service (06) | DRG 552 ==
LOC: ER 23:12 → MS 04-16 09:55
PROVIDERS: Student in an Organized Health Care Education/Training Program; Admitting Provider Student in an Organized Health Care Education/Training Program; Emergency Provider Student in an Organized Health Care Education/Training Program; PCP Family Medicine; Visit Provider Student in an Organized Health Care Education/Training Program
DX: S22.080A Wedge compression fracture of T11-T12 vertebra, initial encounter for closed fracture (principal); G89.29 Other chronic pain; M25.511 Pain in right shoulder; M25.552 Pain in left hip; J44.9 Chronic obstructive pulmonary disease, unspecified; M85.80 Other specified disorders of bone density and structure, unspecified site; Z87.891 Personal history of nicotine dependence; X58.XXXA Exposure to other specified factors, initial encounter
CPT/HCPCS: 94640; 96372; 97162; 97530; 99220; 99232; 99238; 99253; 99285; 72128; 72131; 81003; 81015; 99284; G0378; J1885; J7512; L1830

== ENCOUNTER 2019-05-01 09:29 | Outpatient (REF) | payer MEDICARE, OTHER, MEDICAID, SELFPAY ==
[2019-05-01 10:44] LABS: Abs Immature Grans 0.01 k/cumm (0.0-0.09); Absolute Basophil Count 0.03 k/cumm (0.0-0.2); Absolute Eosinophil Count 0.19 k/cumm (0.0-0.7); Absolute Lymphocyte Count 1.38 k/cumm (1.2-3.4); Absolute Monocyte Count 0.43 k/cumm (0.11-0.7); Absolute Neutrophil Count 2.47 k/cumm (1.2-6.7); Basophils % 0.7; Eosinophils % 4.2; HCT 44.7 % (36.0-46.0); HGB 14.3 g/dL (12.0-15.5); Immature Grans % 0.2 %; Lymphocytes % 30.6; Mean Corpuscular Hemoglobin 30.4 pg (27.0-33.0); Mean Corpuscular Volume 95.1 fL (80-95); Mean Platelet Volume 9.7 fL (8.0-11.0); Monocytes % 9.5; Neutrophils % 54.8; Platelet Count 241 x1000/uL (130-400); White Blood Cell Count 4.51 k/cumm (4.4-10.8)
[2019-05-01 11:02] LABS: ALT 15 U/L (14-59); AST 14 U/L (15-37); Albumin 3.4 g/dL (3.4-5.0); Alkaline Phosphatase 110 U/L (46-116); Anion Gap 7.4 mmol/L (3-11); BUN 7 mg/dL (7-18); Bilirubin, Total 0.3 mg/dL (0.2-1.0); CO2 29.6 mmol/L (21.0-32.0); CREATININE 0.69 mg/dL (0.55-1.02); Calcium 9.2 mg/dL (8.5-10.1); Chloride 98 mmol/L (98-107); Glucose 140 mg/dL (74-106); Magnesium 1.7 mg/dL (1.8-2.4); Potassium 4.6 mmol/L (3.5-5.1); Sodium 135 mmol/L (136-145); TSH 0.16 uIU/mL (0.36-3.74); Total Protein 6.2 g/dL (6.4-8.2)
[2019-05-03 04:42] LABS: Vitamin D 25 Total 18.1 ng/ml (30-100)
== END 2019-05-01 09:49 ==
LOC: LBO 09:29
PROVIDERS: PCP Family Medicine; Visit Provider Nurse Practitioner Adult Health
DX: M81.0 Age-related osteoporosis without current pathological fracture (principal); F41.9 Anxiety disorder, unspecified; K58.0 Irritable bowel syndrome with diarrhea; S22.080G Wedge compression fracture of T11-T12 vertebra, subsequent encounter for fracture with delayed healing
CPT/HCPCS: 36415; 80053; 82306; 83735; 84443; 85025

== ENCOUNTER 2019-05-03 13:51 | Outpatient (CLI) | payer MEDICARE, OTHER, MEDICAID, SELFPAY ==
--- NOTE | 2019-05-03 15:03 | DI.RAD_ITS ---
EXAM: XR THORACIC SPINE COMPLETE INDICATION: BACK PAIN, CONCERN FOR T8 FX, H/O OSTEOPOROSIS. COMPARISON: XR CHEST 2V PA LATERAL from 03/30/2018 XR CHEST 2V PA LATERAL from 03/30/2018 CT THORACIC SPINE WO from 04/17/2019 TECHNIQUE: 2D digital imaging was performed. FINDINGS: There has been no change in the T12 compression fracture when compared with the previous CT. No new fractures are identified. Heart size is normal. The visualized portions of the lungs appear clear w ith the exception of minimal atelectasis. IMPRESSION: No change in mild compression of the superior endplate of T12.
== END 2019-05-03 14:11 ==
PROVIDERS: PCP Family Medicine; Visit Provider Family Medicine
DX: M54.6 Pain in thoracic spine (principal); M48.54XD Collapsed vertebra, not elsewhere classified, thoracic region, subsequent encounter for fracture with routine healing; M81.0 Age-related osteoporosis without current pathological fracture
CPT/HCPCS: 72072

== ENCOUNTER 2019-05-10 08:42 | Inpatient (IN) | payer MEDICARE, OTHER, MEDICAID, SELFPAY ==
[2019-05-10] VITALS (31 sets, daily range): BP systolic 98–131; BP diastolic 49–68; PULSE 18–121; RESP 4–22; TEMP 36.4–38.6; O2SAT 91–97
--- NOTE | 2019-05-10 08:53 | ED.GENADUL_ITS ---
Discharge Plan Disposition Patient Disposition: [facility] INPATIENT Condition: Fair Discharge Details Chief Complaint: SOB Clinical Impression: Bacterial pneumonia Admit Date/Time: 05/10/19 10:43 Admit Provider: Marti Carmona Attending Provider: Marti Carmona Primary Care Provider: Ralph Rahman ED Provider: Monae Akers Medical Decision Making <Filiberto Boone DO - Last Filed: 05/10/19 08:59> EKG 8: 56 Rate 113, intervals normal, sinus tachycardia, inverted T wave in V1, V2, and aVR. Review of prior EKG from 03/31/2018 demonstrates no significant changes except for slight increasing of inverted T waves in V1 V2. No evidence of STEMI. <ELIAZAR Rebollar - Last Filed: 05/10/19 11:47> Patient is a pleasant 74-year-old female, residing at [facility] all r ecovering from thoracic spine compression fractures, presenting today with chief complaint of shortness of breath. She reports that 2 days ago she began having cough, cold, fevers and shortness of breath. Patient reports that she has COPD and is chronically on 2 L nasal cannula with oxygen typically around 90 to 93%. However, today she was noted to be on 80 to 85% with her 2 L nasal cannula. She did bump up to 98% with 6 L per EMS. Was noted to have a low-grade fever. She reports excessive sputum production and that she is been bringing up green globs. No hemoptysis. She does endorse pain in her back with coughing. Denies any chest pain. Patient has history of T12 compression fracture, emphysema, spontaneous tension pneumothorax, chronic pain syndrome, anxiety. EKG was reviewed by Dr. Boone, please see his note. T wave versions were noted but appear slightly deeper than previous. On exam, patient is resting comfortably. She has diminished lung sounds throughout, she does have some faint crackles in the right lower lobe. There is no obvious evidence of work of breathing. Patient is oxygen 91% on 4L NC. This is normal for patient, I do not feel that higher target is necessary given her history. With the patient's fevers, cough, green sputum production I reason hospitalization, I am concerned for pneumonia plan for chest x-ray, lactate, blood cultures. Patient is tachycardic and has increased oxygen demand. Patient is not hypotensive. Labs reviewed. No leukocytosis. Lactate is within normal limits. Initial troponin is normal. I reviewed the patient's chest x-ray. Read from radiologist is not yet in. I am concerned for an infiltrate on the right lower lobe which would correlate clinically. We will begin treatment with ceftriaxone, doxycycline and consult with hospitalist. Patient center is now up to 38.6. Will give Tylenol. Consulted with Dr. Carmona who was able to review labs and imaging. She agrees with admission for pneumonia with increased oxygen demand. She also recommended with the patient's history of COPD to give IV Solu-Medrol. HPI <Filiberto Boone, - Last Filed: 05/10/19 08:59> General Date/Time Provider Initiated Documentation: 05/10/19 08:53 . Related Data Home Medications Medication Instructions Recorded Confirmed guaifenesin [Mucinex] 600 mg PO DAILY PRN 05/22/15 05/10/19 Salonpas 1 ea TOPICAL .DAILY X 12 HOURS 11/10/16 04/15/19 fluticasone fur. 100 mcg-umeclid 1 inh IH DAILY #28 each 08/04/18 05/10/19 62.5 mcg-vilant 25 mcg inhalat.powder Oxygen #1 each 12/12/18 04/10/19 albuterol sulfate 90 mcg/actuation 2 puff IH Q6H PRN #6.7 gm 02/07/19 05/10/19 aerosol inhaler clonazepam 1 mg tablet 1 mg PO BID PRN #60 tab 02/07/19 05/10/19 roflumilast 500 mcg tablet 500 mcg PO DAILY #90 tab-cap 02/07/19 04/15/19 sertraline 100 mg tablet 100 mg PO DAILY #90 tab-cap 02/07/19 05/10/19 acetaminophen 1,000 mg PO Q8H PRN #90 tab 04/18/19 05/10/19 bisacodyl [Dulcolax (bisacodyl)] 5 mg PO DAILY PRN #7 tab 04/18/19 05/10/19 celecoxib 200 mg PO BID PRN #60 cap 04/18/19 05/10/19 cyclobenzaprine 5 mg PO BID PRN #28 tab 04/18/19 05/10/19 naloxone [Narcan] 1 spray KELL Q2-3M PRN #2 each 04/18/19 05/10/19 calcitonin (salmon) [Miacalcin] 1 unit DAILY 05/10/19 05/10/19 camphor-methyl salicyl-menthol 1 patch TOPICAL DAILY 05/10/19 05/10/19 cholecalciferol (vitamin D3) 3,000 unit PO DAILY 05/10/19 05/10/19 [Vitamin D3] oxycodone 5 mg PO Q4H PRN 05/10/19 05/10/19 Previous Rx's Medication Instructions Recorded fluticasone fur. 100 mcg-umeclid 1 inh IH DAILY #28 each 08/04/18 62.5 mcg-vilant 25 mcg inhalat.powder albuterol sulfate 90 mcg/actuation 2 puff IH Q6H PRN #6.7 gm 02/07/19 aerosol inhaler clonazepam 1 mg tablet 1 mg PO BID PRN #60 tab 02/07/19 roflumilast 500 mcg tablet 500 mcg PO DAILY #90 tab-cap 02/07/19 sertraline 100 mg tablet 100 mg PO DAILY #90 tab-cap 02/07/19 acetaminophen 1,000 mg PO Q8H PRN #90 tab 04/18/19 bisacodyl [Dulcolax (bisacodyl)] 5 mg PO DAILY PRN #7 tab 04/18/19 celecoxib 200 mg PO BID PRN #60 cap 04/18/19 cyclobenzaprine 5 mg PO BID PRN #28 tab 04/18/19 naloxone [Narcan] 1 spray KELL Q2-3M PRN #2 each 04/18/19 Allergies Allergy/AdvReac Type Severity Reaction Status Date / Time No Known Allergies Allergy Unverified 05/10/19 08:56 <ELIAZAR Rebollar - Last Filed: 05/10/19 11:47> General Mode of arrival: EMS . Limitations to Documentation: no limitations . Information obtained by: patient, RN/MD (contacted by [facility]), EMS and RN notes reviewed . History of Present Illness 74 year old F presents to the emergency department with the chief complaint of shortness of breath, hypoxia, cough, increased sputum production, described as moderate (moderate SOB, reports severe back pain from known compression fractures), and is localized to the back (associates with known compression fractures). Patient reports no radiation. Patient started experiencing this day(s) (Shortness of breath began 2 days ago) and it has been constant. other things that improve symptom(s), (Feels improved with 6 L nasal cannula) General MCKAYLA: 3 <ELIAZAR Rebollar - Last Filed: 05/10/19 11:47> Constitutional Constitutional: Reports as per HPI, Denies chills, Reports fatigue, Reports fever(s), Denies headache(s), Denies lethargy and Denies poor appetite Eyes Eyes: Denies change in vision ENT Ears, Nose, Mouth, and Throat: Denies dizziness and Denies headache(s) Cardiovascular Cardiovascular: Reports as per HPI, Denies chest pain, Denies chest pain at rest, Denies lightheadedness, Denies radiating jaw, neck or arm pain, Denies palpitations, Reports dyspnea and Reports dyspnea on exertion Respiratory Respiratory: Reports as per HPI, Reports chest congestion, Reports cough, Reports excessive phlegm production, Denies pain on inspiration, Reports pain with cough, Reports dyspnea, Reports dyspnea on exertion, Denies stridor and Denies wheezing Gastrointestinal Gastrointestinal: Reports as per HPI, Denies abdominal pain, Denies diarrhea, Denies nausea and Denies vomiting Musculoskeletal Musculoskeletal: Reports as per HPI and Reports back pain Integumentary/Breasts Skin/Breast: Reports as per HPI and Denies rash Neurologic Neurologic: Reports as per HPI, Denies dizziness and Denies headache(s) Endocrine Endocrine: Reports fatigue and Denies palpitations Allergic/Immunologic Allergic/Immunologic: Denies wheezing PFSH <Filiberto Boone DO - Last Filed: 05/10/19 08:59> Medical History Anxiety (Chronic) Cervical neck pain with evidence of disc disease (Chronic 06/22/13) Chronic obstructive pulmonary disease (Chronic) Chronic pain syndrome (Chronic 12/15/16) CONTROLLED SUBSTANCE AGREEMENT 10/03/18 History of tobacco abuse (Chronic) Irritable bowel syndrome with diarrhea (Chronic) LLL pneumonia (Acute ~03/30/18) Surgical History Appendectomy CHEST TUBE Extraction of cataract 06/05/15; LEFT EYE; DR. ARAUZ H/O section (Chronic) Hx of hysterectomy (Chronic) LAMINECTOMY CERVICAL SPINE Right femoral fracture (Resolved 05/09/17) ORIF DOS: 05/10/17 Dr. Bob Social History Smoking/Tobacco Use Status: Former Tobacco Use Quit Date: 09/16/13 Pack-years: 50 Alcohol Intake: former Year quit: 1979 Drug use: Never Substance use type: does not use Other: living along; missing her family; lonely Do you feel safe at home: Yes Do you feel safe in your relationship?: No Additional Social history: 16 years ago. Originally from [place], moved here to be near son and grand children. On disability due to chronic back pain. 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 Approximate 75 pack year history of tobacco. No alcohol or illicit drug use endorsed. <ELIAZAR Rebollar - Last Filed: 05/10/19 11:47> Const General: cooperative, healthy appearing, comfortable, no acute distress and well developed Nutritional Appearance: average body habitus and well nourished Orientation: alert, awake and oriented x3 HENMT Head: normal to inspection Ears: hearing grossly normal bilaterally Mouth: moist mucous membranes Chest Chest: normal inspection of the chest, normal palpation of entire chest wall and no crepitus Resp Effort & Inspection: normal respiratory effort, able to speak in complete sentences, no respiratory distress and tachypneic Auscultation: not clear to auscultation bilaterally, crackles on the right in the lower lung barboza, diminished lung sounds bilaterally throughout, no rales, no rhonchi and no wheezes Cardio Rate: regular rate Rhythm: regular rhythm Heart Sounds: S1 normal and S2 normal GI Inspection: normal to inspection, no edema and non-distended Palpation: soft, no hepatosplenomegaly, not firm, no guarding, not rigid and nontender Auscultation: normal bowel sounds Back/Spine/Pelvis Back: no CVA tenderness Thoracic/Lumbar Spine: thoracic and lumbar spine normal to inspection Skin General skin exam: no rashes or lesions noted Trauma: no lacerations or abrasions Neuro General: alert, awake and oriented x3 Cognition: normal cognition Speech: speech normal Gait: normal gait Extrem General: normal to inspection, normal capillary refill, no pedal edema, no calf tenderness and normal gait Psych Appearance: grossly normal and well kempt Mental Status: mental status grossly normal Speech and Movement: speech and movement normal <ELIAZAR Rebollar - Last Filed: 05/10/19 11:47> Vital Signs Vital signs: Vital Signs Temperature 36.7 C 05/10/19 08:48 Pulse 115 H 05/10/19 08:48 Respiratory Rate 17 05/10/19 08:48 Blood Pressure 131/62 05/10/19 08:48 Pulse Oximetry 94 L 05/10/19 08:48 Temperature 36.7 C 05/10/19 08:48 Pulse 115 H 05/10/19 08:48 Respiratory Rate 17 05/10/19 08:48 Blood Pressure 131/62 05/10/19 08:48 Pulse Oximetry 94 L 05/10/19 08:48
[2019-05-10] MEDS: Normal Saline Flush 10 ML SYR IVP (09:15)
[2019-05-10] MEDS: Normal Saline 1,000 ML 1000 ML IV (09:15)
[2019-05-10 09:29] LABS: Lactate 0.6 mmol/L (0.6-1.4)
[2019-05-10 09:30] LABS: Abs Immature Grans 0.03 k/cumm (0.0-0.09); Absolute Basophil Count 0.01 k/cumm (0.0-0.2); Absolute Eosinophil Count 0.02 k/cumm (0.0-0.7); Absolute Lymphocyte Count 0.63 k/cumm (1.2-3.4); Absolute Monocyte Count 0.78 k/cumm (0.11-0.7); Absolute Neutrophil Count 8.83 k/cumm (1.2-6.7); Basophils % 0.1; Eosinophils % 0.2; HCT 41.7 % (36.0-46.0); HGB 13.4 g/dL (12.0-15.5); Immature Grans % 0.3 %; Lymphocytes % 6.1; Mean Corp. HGB Concentration 32.1 g/dL (32.0-36.0); Mean Corpuscular Hemoglobin 30.1 pg (27.0-33.0); Mean Corpuscular Volume 93.7 fL (80-95); Mean Platelet Volume 9.1 fL (8.0-11.0); Monocytes % 7.6; Neutrophils % 85.7; Platelet Count 263 x1000/uL (130-400); RBC 4.45 m/cumm (4.00-5.20); RBC Distribution Width 12.4 % (11.7-14.6)
--- NOTE | 2019-05-10 09:50 | DI.RAD_ITS ---
EXAM: XR CHEST 2V PA LATERAL INDICATION: cough. COMPARISON: XR CHEST 2V PA LATERAL from 03/30/2018 TECHNIQUE: 2D digital imaging was performed. FINDINGS: The heart size is within normal limits. There is calcification of the thoracic aorta. The pulmonary vasculature appears stable. There is stable pulmonary scarring in the lung bases, predominantly on t he right. No new infiltrates, effusions or pneumothoraces are identified. There is underlying COPD. Degenerative changes are seen in the spine. IMPRESSION: No change in appearance of the chest x-ray compared to the prior examination. No acute pulmonary pro cess.
[2019-05-10 09:58] LABS: ALT 12 U/L (14-59); AST 13 U/L (15-37); Albumin 3.3 g/dL (3.4-5.0); Alkaline Phosphatase 110 U/L (46-116); BUN 6 mg/dL (7-18); Bilirubin, Total 0.5 mg/dL (0.2-1.0); CREATININE 0.54 mg/dL (0.55-1.02); Calcium 9.2 mg/dL (8.5-10.1); Chloride 95 mmol/L (98-107); Glucose 136 mg/dL (74-106); Potassium 4.4 mmol/L (3.5-5.1); Sodium 133 mmol/L (136-145); Total Protein 7.1 g/dL (6.4-8.2); Troponin I < 0.05 ng/Ml (<0.06)
[2019-05-10] MEDS: Acetaminophen 500 MG TAB (10:28)
[2019-05-10 10:29] LABS: Bilirubin Negative (Negative); Blood Small (Negative); Clarity Clear (Clear); Glucose Negative (Negative); Ketones Trace mg/dL (Negative); Leukocyte Esterase Negative (Negative); Nitrite Negative (Negative); Specific Gravity >= 1.030 (1.005-1.025); pH 7.5 (5-8)
[2019-05-10] MEDS: Normal Saline 1,000 ML 100 ML IV ×2 (10:55→12:20)
[2019-05-10] MEDS: methylPREDNISolone SUCC 125 MG VIAL IVP (11:02)
[2019-05-10] MEDS: cefTRIAXone 1 GM/50 ML BAG IVPB (11:07)
[2019-05-10 12:20] LABS: Troponin I < 0.05 ng/Ml (<0.06)
[2019-05-10] MEDS: Enoxaparin 40 MG/0.4 ML SYR SC (12:21)
[2019-05-10 12:30] LABS: Procalcitonin < 0.1 ng/mL
--- NOTE | 2019-05-10 12:33 | HPE_ITS ---
Date of service: 05/10/19 Time of Service: 12:33 Assessment and Plan Assessment and plan (1) RLL pneumonia: Status: Acute Assessment and plan: admit to med/surg. will give 1 liter of NS, blood cultures, sputum cultures pending. continue ceftriaxone and doxycycline day 1/7. continue duonebs scheduled. continue mucinex. (2) Acute exacerbation of chronic obstructive pulmonary disease (COPD): Status: Acute Assessment and plan: given solumedrol in ED, will continue prednisone burst for 5 days. continue duonebs. (3) T12 compression fracture: Status: Acute Assessment and plan: stable, continue current pain regimen. continue calcitonin daily Qualifiers: Encounter type: initial encounter Qualified Code(s): S22.080A - Wedge compression fracture of T11-T12 vertebra, initial encounter for closed fracture (4) Anxiety: Status: Chronic Assessment and plan: stable, continue current home medications (5) Chronic pain syndrome: Status: Chronic Assessment and plan: stable, continue current pain regimen (6) DVT prophylaxis: Status: Acute Assessment and plan: lovenox 30 mg daily, TEDS, no on bedrest. (7) Discharge planning issues: Status: Acute Assessment and plan: will discharge back to [facility] rehab when medically stable. History of Present Illness History of Present Illness Chief Complaint: cough, shortness of breath Narrat kevin: this is a 74 year old female with history of COPD, oxygen dependant who was at [facility] rehab after she sustained a fall at home with t-spine compression fractures. She reports that 2 days ago she began having cough, cold, fevers and shortness of breath. Patient reports that she has COPD and is chronically on 2 L nasal cannula with oxygen typically around 90 to 93%. However, today she was noted to be on 80 to 85% with her 2 L nasal cannula. She did bump up to 98% with 6 L per EMS. She was noted to have a low-grade fever. She reports excessive sputum production and that she is been bringing up green globs. No hemoptysis. She does also report pain in her back with coughing. Denies any chest pain. Patient also has history of emphysema, spontaneous tension pneumothorax, chronic pain syndrome, anxiety. work up in the ED shows an infiltrate in right lower lobe, she was treated with rocephin, doxycycline and solumedrol and will be admitted to hospitalist services for acute on chronic respiratory failure, multifactoral including pneumonia and copd exacerbation. Review of Systems Constitutional Constitutional: Reports as per HPI, Reports fatigue and Reports fever(s) Comments: cough, increased sputum production, right sided pleuritic chest pain Eyes Eyes: Denies blurry vision and Denies eye discharge ENT Ears, Nose, Mouth, and Throat: Denies dizziness, Denies nasal congestion, Denies nasal discharge, Denies sinus pain and Denies sore throat Cardiovascular Cardiovascular: Denies chest pain, Denies syncope, Denies edema and Reports dyspnea Respiratory Respiratory: Reports chest congestion, Reports cough, Denies hemoptysis, Reports excessive phlegm production, Reports pain with cough and Reports dyspnea Gastrointestinal Gastrointestinal: Denies abdominal pain, Denies nausea and Denies vomiting Genitourinary Genitourinary: Denies dysuria Musculoskeletal Musculoskeletal: Reports back pain Integumentary/Breasts Skin/Breast: Denies lesions and Denies rash Neurologic Neurologic: Denies dizziness and Denies syncope Endocrine Endocrine: Reports fatigue Hematologic/Lymphatic Hematologic/Lymphatic: Denies easy bleeding and Denies easy bruising [facility] Medical History Anxiety (Chronic) Cervical neck pain with evidence of disc disease (Chronic 06/22/13) Chronic obstructive pulmonary disease (Chronic) Chronic pain syndrome (Chronic 12/15/16) CONTROLLED SUBSTANCE AGREEMENT 10/03/18 History of tobacco abuse (Chronic) Irritable bowel syndrome with diarrhea (Chronic) LLL pneumonia (Acute ~03/30/18) Surgical History Appendectomy CHEST TUBE Extraction of cataract 06/05/15; LEFT EYE; DR. ARAUZ H/O section (Chronic) Hx of hysterectomy (Chronic) LAMINECTOMY CERVICAL SPINE Right femoral fracture (Resolved 05/09/17) ORIF DOS: 05/10/17 Dr. Bob Social History Smoking/Tobacco Use Status: Former Tobacco Use Quit Date: 09/16/13 Pack-years: 50 Alcohol Intake: former Year quit: 1979 Drug use: Never Substance use type: does not use Other: living along; missing her family; lonely Do you feel safe at home: Yes Do you feel safe in your relationship?: No Additional Social history: 16 years ago. Originally from [place], moved here to be near son and grand children. On disability due to chronic back pain. 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 Approximate 75 pack year history of tobacco. No alcohol or illicit drug use endorsed. Meds Home Medications and Allergies Home Medications Medication Instructions Recorded Confirmed Type guaifenesin [Mucinex] 600 mg PO DAILY PRN 05/22/15 05/10/19 History Salonpas 1 ea TOPICAL .DAILY X 12 HOURS 11/10/16 04/15/19 History fluticasone fur. 100 mcg-umeclid 1 inh IH DAILY #28 each 08/04/18 05/10/19 Rx 62.5 mcg-vilant 25 mcg inhalat.powder Oxygen #1 each 12/12/18 04/10/19 History albuterol sulfate 90 mcg/actuation 2 puff IH Q6H PRN #6.7 gm 02/07/19 05/10/19 Rx aerosol inhaler clonazepam 1 mg tablet 1 mg PO BID PRN #60 tab 02/07/19 05/10/19 Rx roflumilast 500 mcg tablet 500 mcg PO DAILY #90 tab-cap 02/07/19 04/15/19 Rx sertraline 100 mg tablet 100 mg PO DAILY #90 tab-cap 02/07/19 05/10/19 Rx acetaminophen 1,000 mg PO Q8H PRN #90 tab 04/18/19 05/10/19 Rx bisacodyl [Dulcolax (bisacodyl)] 5 mg PO DAILY PRN #7 tab 04/18/19 05/10/19 Rx celecoxib 200 mg PO BID PRN #60 cap 04/18/19 05/10/19 Rx cyclobenzaprine 5 mg PO BID PRN #28 tab 04/18/19 05/10/19 Rx naloxone [Narcan] 1 spray KELL Q2-3M PRN #2 each 04/18/19 05/10/19 Rx calcitonin (salmon) 1 spray INTRANASAL DAILY 05/10/19 05/10/19 History camphor-methyl salicyl-menthol 1 patch TOPICAL DAILY 05/10/19 05/10/19 History cholecalciferol (vitamin D3) 3,000 unit PO DAILY 05/10/19 05/10/19 History [Vitamin D3] oxycodone 5 mg PO Q4H PRN 05/10/19 05/10/19 History Allergies Allergy/AdvReac Type Severity Reaction Status Date / Time No Known Allergies Allergy Unverified 05/10/19 08:56 Exam Const General: cooperative, in distress mild and respiratory, anxious and ill appearing chronically Nutritional Appearance: thin (frail appearing, approx stated age) Orientation: alert, awake and oriented x3 [facility] Head: normal to inspection, normocephalic and atraumatic Mouth: moist mucous membranes abnormal (dry, no exudates) Eyes Conjunctivae: conjunctivae normal Sclera: sclerae normal Neck Neck: normal visual inspection and full ROM Resp Effort & Inspection: cough Auscultation: diminished lung sounds bilaterally, no rhonchi and no wheezes Cardio Rate: regular rate and tachycardic Rhythm: regular rhythm GI Inspection: normal to inspection Palpation: soft Auscultation: normal bowel sounds Skin General skin exam: no rashes or lesions noted Neuro General: alert, awake, oriented x3, tone normal and moves all extremities Cranial Nerves: CN's II-XI intact bilaterally Extrem General: normal to inspection, full ROM and no pedal edema Results Labs Result diagrams: 05/11/19 07:20 05/11/19 07:20 Labs: Laboratory Results - last 24 hr 05/10/19 05/10/19 05/10/19 09:15 09:15 09:15 WBC 10.30 RBC 4.45 Hgb 13.4 Hct 41.7 MCV 93.7 MCH 30.1 MCHC 32.1 RDW 12.4 Plt Count 263 MPV 9.1 Immature Gran % 0.3 Neutrophils % 85.7 Lymphocytes % 6.1 Monocytes % 7.6 Eosinophils % 0.2 Basophils % 0.1 Absolute Neutrophils 8.83 H Absolute Lymphocytes 0.63 L Absolute Monocytes 0.78 H Absolute Eosinophils 0.02 Absolute Basophils 0.01 Sodium 133 L Potassium 4.4 Chloride 95 L Carbon Dioxide 31.0 Anion Gap 7.0 BUN 6 L Creatinine 0.54 L Estimated GFR/1.73 m2 >= 60.00 Glucose 136 H Lactate 0.6 Calcium 9.2 Total Bilirubin 0.5 AST 13 L ALT 12 L Alkaline Phosphatase 110 Troponin I < 0.05 Total Protein 7.1 Albumin 3.3 L Procalcitonin Urine Color Urine Clarity Urine pH Ur Specific [place] Urine Protein Urine Ketones Urine Blood Urine Nitrite Urine Bilirubin Urine Urobilinogen Ur Leukocyte Esterase Urine Glucose 05/10/19 05/10/19 05/10/19 09:15 10:00 11:53 WBC RBC Hgb Hct MCV MCH MCHC RDW Plt Count MPV Immature Gran % Neutrophils % Lymphocytes % Monocytes % Eosinophils % Basophils % Absolute Neutrophils Absolute Lymphocytes Absolute Monocytes Absolute Eosinophils Absolute Basophils Sodium Potassium Chloride Carbon Dioxide Anion Gap BUN Creatinine Estimated GFR/1.73 m2 Glucose Lactate Calcium Total Bilirubin AST ALT Alkaline Phosphatase Troponin I < 0.05 Total Protein Albumin Procalcitonin < 0.1 Urine Color Yellow Urine Clarity Clear Urine pH 7.5 Ur Specific [place] >= 1.030 H Urine Protein Trace H Urine Ketones Trace H Urine Blood Small H Urine Nitrite Negative Urine Bilirubin Negative Urine Urobilinogen 1.0 H Ur Leukocyte Esterase Negative Urine Glucose Negative Last Vital Signs Temp 37.9 C H 05/10/19 11:18 Pulse 93 H 05/10/19 11:18 Resp 18 05/10/19 11:18 BP 98/50 L 05/10/19 11:18 Pulse Ox 97 05/10/19 11:18
[2019-05-10] MEDS: Albuterol/Ipratropium 3 ML UPD VIAL UPD ×2 (12:37→18:23)
[2019-05-10 13:38] LABS: Epithelial Cells Rare HPF (Negative); WBC Negative HPF (0-5)
[2019-05-10 13:39] LABS: Bacteria Negative HPF (Negative); C & S Indicated? No; Casts Negative LPF (Negative); Crystals Negative HPF (Negative); Mucus Negative (Negative); Other Cells Rare Renal (Negative)
[2019-05-10] MEDS: Albuterol 2.5 MG/3 ML INH SOLN VIAL UPD (14:16)
[2019-05-10] MEDS: oxyCODONE 5 MG TAB PO ×2 (14:18→18:23)
[2019-05-10] MEDS: Benzonatate 100 MG CAP PO ×2 (14:19→20:38)
[2019-05-10] MEDS: clonazePAM 1 MG TAB PO ×2 (15:53→21:00)
[2019-05-10] MEDS: Acetaminophen 500 MG TAB 1000 MG PO (16:40)
--- NOTE | 2019-05-10 18:45 | INITIAL_ITS ---
Care Management Initial Assess REASON FOR HOSPITALIZATION:: Acute exacerbation of COPD w/Hypoxia due to RLL Pneumonia PAST MEDICAL HISTORY/PAST SURGICAL HISTORY:: Anxiety, cervical neck pain with evidence of disc disease, COPD, chronic pain syndome, hx of tobacco abuse, IBS with diarrhea, LLL pnemonia, appendectomy, chest tube, extraction of cataract, section, hysterectomy, laminectomy, right femoral fracture PREVIOUS FUNCTIONAL STATUS/SOCIAL/FAMILY SUPPORTS:: Laney resides alone in an apartment in [place]. Her son, Stanley and daughter in law, Bree reside locally and are very supportive. Laney also has four grandchildren under the age of eight that she enjoys seeing often. Laney has a history of back injuries and surgeries which have limited her ability to leave the home very often, and result in her experiencing chronic pain. She reports enjoying her home and having her grandchildren visit, which is her motivation for remaining in her own apartment. CURRENT FUNCTIONAL STATUS:: Laney is lying upright in bed, she is pleasant in interaction and forthcoming with information. She reports currently staying at [facility] with the intention of returning home next Tuesday. She reports she may only return to the rehab to collect her belongings if she is cleared to return home after this admission. ADVANCE DIRECTIVES:: COLST form on file Has patient been provided with information about the portal?: Yes Did the patient sign up for the portal?: No CODE STATUS:: Full Code INSURANCE COVERAGE / FINANCIAL ISSUES:: Medicare. Medicaid. [facility] CURRENT HOME/COMMUNITY SERVICES/EQUIPMENT:: Laney reports she has been at [facility] for the last few weeks. At Home: 2L O2 at baseline, FWW, quad cane, VNA RN/PT/OT, [employer] food benefit through [employer]. PRIMARY CARE PHYSICIAN:: Ralph Rahman POTENTIAL DISCHARGE NEEDS:: Review of community based supports. Offer level 3 options including [facility]. Follow up appointment with PCP and confirmation of service attachment. Evaluation to inform discharge plan, [id number] to SNF. PATIENT/FAMILY EDUCATION NEEDS:: Review discharge instructions, discuss Ask Me Three. ANTICIPATED BARRIERS TO DISCHARGE:: None identified. TRANSPORTATION:: Via private vehicle with family. PLAN:: Laney will discharge home with home health [id number] to [facility]; evaluations will be forthcoming. She is interested in completing a LTM application which CM will provide tomorrow. Laney is interested in increasing service supports within her home setting to enable her to remain at home. CM will continue to support patient, family and discharge planning needs.
[2019-05-10] MEDS: Celecoxib 200 MG CAP PO (20:38)
[2019-05-10] MEDS: DOXYCYCLINE 100 MG in Normal Saline 100 ML IVPB (20:39)
[2019-05-10] MEDS: guaiFENesin 600 MG TABCR PO (20:39)
[2019-05-10] MEDS: Budesonide/Formoterol 160/4.5 6 GM 60 PUFF INH IH (20:41)
[2019-05-10] MEDS: Cyclobenzaprine 10 MG TAB 5 MG PO (20:51)
[2019-05-11] VITALS (12 sets, daily range): BP systolic 98–116; BP diastolic 53–69; PULSE 72–97; RESP 2–21; TEMP 36–37.1; O2SAT 92–99
[2019-05-11] MEDS: Albuterol/Ipratropium 3 ML UPD VIAL UPD ×4 (00:13→18:11)
[2019-05-11] MEDS: oxyCODONE 5 MG TAB PO ×3 (00:13→18:14)
[2019-05-11 07:35] LABS: Abs Immature Grans 0.01 k/cumm (0.0-0.09); Absolute Lymphocyte Count 0.65 k/cumm (1.2-3.4); Absolute Neutrophil Count 6.67 k/cumm (1.2-6.7); HCT 39.4 % (36.0-46.0); HGB 12.4 g/dL (12.0-15.5); Immature Grans % 0.1 %; Lymphocytes % 8.1; Mean Corp. HGB Concentration 31.5 g/dL (32.0-36.0); Mean Corpuscular Hemoglobin 30.2 pg (27.0-33.0); Mean Corpuscular Volume 96.1 fL (80-95); Mean Platelet Volume 9.2 fL (8.0-11.0); Monocytes % 8.7; Neutrophils % 83.1; Platelet Count 254 x1000/uL (130-400); RBC Distribution Width 12.3 % (11.7-14.6); White Blood Cell Count 8.03 k/cumm (4.4-10.8)
[2019-05-11 07:52] LABS: Anion Gap 5.7 mmol/L (3-11); BUN 10 mg/dL (7-18); CO2 30.3 mmol/L (21.0-32.0); CREATININE 0.63 mg/dL (0.55-1.02); Calcium 9.3 mg/dL (8.5-10.1); Chloride 103 mmol/L (98-107); Glucose 164 mg/dL (74-106); Magnesium 1.8 mg/dL (1.8-2.4); Potassium 5.5 mmol/L (3.5-5.1); Sodium 139 mmol/L (136-145)
[2019-05-11] MEDS: cefTRIAXone 1 GM/50 ML BAG IVPB (09:42)
[2019-05-11] MEDS: Normal Saline Flush 10 ML SYR IVP (09:43)
[2019-05-11] MEDS: DOXYCYCLINE 100 MG in Normal Saline 100 ML IVPB ×2 (09:43→20:03)
[2019-05-11] MEDS: Calcitonin-Salmon, Synthetic 3.7 ML BTL NS (09:47)
[2019-05-11] MEDS: clonazePAM 1 MG TAB PO ×2 (09:49→20:17)
[2019-05-11] MEDS: PO 3000 UNITS PO (09:49)
[2019-05-11] MEDS: Benzonatate 100 MG CAP PO ×3 (09:49→20:02)
[2019-05-11] MEDS: Pantoprazole 40 MG TABCR PO (09:49)
[2019-05-11] MEDS: guaiFENesin 600 MG TABCR PO ×2 (09:50→20:03)
[2019-05-11] MEDS: Sertraline 50 MG TAB 100 MG PO (09:50)
[2019-05-11] MEDS: Budesonide/Formoterol 160/4.5 6 GM 60 PUFF INH IH ×2 (10:05→20:03)
--- NOTE | 2019-05-11 11:53 | W.PM.PROGNOT ---
Date of Service Date of service: 05/11/19 Time of Service: 11:53 Assessment and Plan Assessment and plan (1) RLL pneumonia: Status: Ruled-out Assessment and plan: improved symptoms overnight, no fevers and hemodynamically stable. continue ceftriaxone and doxycycline day 2/7 while culture reports pending. continue updrafts and mucinex. wean oxgyen to 2 liters (home dose) as able. (2) Acute exacerbation of chronic obstructive pulmonary disease (COPD): Status: Acute Assessment and plan: slowly improving with treatment, continue steroids and antibioitics as listed above (3) T12 compression fracture: Status: Acute Assessment and plan: pain controlled on current regimen. continue assessment and adjust as needed. continue daily calcitonin Qualifiers: Encounter type: initial encounter Qualified Code(s): S22.080A - Wedge compression fracture of T11-T12 vertebra, initial encounter for closed fracture (4) Anxiety: Status: Chronic Assessment and plan: stable on home medications (5) Chronic pain syndrome: Status: Chronic Assessment and plan: stable, continue home medications (6) Hyperkalemia: Status: Resolved Assessment and plan: repeat potassium today. (7) DVT prophylaxis: Status: Acute Assessment and plan: enoxaparin, TEDS and ambulation as able. (8) Discharge planning issues: Status: Acute Assessment and plan: will decline to return to [facility] rehab, plan for home discharge., case management following, services if appropriate. Subjective Subjective Patient reports: no new complaints and feels better Exam Const General: cooperative, acute distress mild and respiratory and ill appearing chronically Nutritional Appearance: thin Orientation: alert, awake and oriented x3 [facility] Head: normal to inspection, normocephalic and atraumatic Mouth: oral mucosae normal Resp Auscultation: diminished lung sounds bilaterally Cardio Rate: regular rate Rhythm: regular rhythm GI Inspection: normal to inspection Palpation: soft Auscultation: normal bowel sounds Skin General skin exam: no rashes or lesions noted Neuro General: alert, awake, oriented x3 and moves all extremities Extrem General: normal to inspection, full ROM and no pedal edema Objective Objective Clinical Data: Abnormal lab results 05/10/19 05/11/19 05/11/19 Range/Units 10:00 07:20 07:20 MCV 96.1 H (80-95) fL MCHC 31.5 L (32.0-36.0) g/dL Absolute Lymphocytes 0.65 L (1.2-3.4) k/cumm Potassium 5.5 H (3.5-5.1) mmol/L Glucose 164 H (74-106) mg/dL Urine RBC 5-10 H (0-2) HPF Vital Signs Temperature 36.9 C 05/11/19 08:15 Temperature Source Tympanic 05/11/19 08:15 Pulse 97 H 05/11/19 08:15 Pulse Rhythm Regular 05/10/19 20:05 Pulse 92 H 05/10/19 11:10 Respiratory Rate 18 05/11/19 08:15 Respiratory Effort 05/10/19 20:05 Respiratory Depth Normal 05/10/19 20:05 Respiratory Pattern Normal 05/10/19 20:05 Blood Pressure 98/57 L 05/11/19 08:15 Blood Pressure Mean 64 05/10/19 10:16 Pulse Oximetry 95 05/11/19 10:24 Oxygen Delivery Method Nasal Cannula 05/11/19 10:24 Oxygen Flow Rate 3 05/11/19 10:24 Pain Level 10 05/11/19 08:15 Comment 05/10/19 10:10 Intake & Output 05/10/19 05/10/19 05/11/19 11:59 23:59 11:59 Intake Total 1000 / 3481.667 2481.667 / 3481.667 360 / 360 Output Total 1200 / 1200 700 / 700 Balance 1000 / 2281.667 1281.667 / 2281.667 -340 / -340 Weight 62.2 kg 61.6 kg Intake: IV 1000 / 3241.667 2241.667 / 3241.667 Oral 240 / 240 360 / 360 Output: Urine 1200 / 1200 700 / 700 Other: Urine Color Yellow Yellow Urine Appearance Clear Clear Clear Urine Odor Normal Stool Size Small Small Stool Characteristics Soft Soft Voiding Methods Toilet Toilet Laboratory Results WBC 8.03 k/cumm (4.4-10.8) 05/11/19 07:20 RBC 4.10 m/cumm (4.00-5.20) 05/11/19 07:20 Hgb 12.4 g/dL (12.0-15.5) 05/11/19 07:20 Hct 39.4 % (36.0-46.0) 05/11/19 07:20 MCV 96.1 fL (80-95) H 05/11/19 07:20 MCH 30.2 pg (27.0-33.0) 05/11/19 07:20 MCHC 31.5 g/dL (32.0-36.0) L 05/11/19 07:20 RDW 12.3 % (11.7-14.6) 05/11/19 07:20 Plt Count 254 x1000/uL (130-400) 05/11/19 07:20 MPV 9.2 fL (8.0-11.0) 05/11/19 07:20 Immature Gran % 0.1 % 05/11/19 07:20 Neutrophils % 83.1 05/11/19 07:20 Lymphocytes % 8.1 05/11/19 07:20 Monocytes % 8.7 05/11/19 07:20 Eosinophils % 0.0 05/11/19 07:20 Basophils % 0.0 05/11/19 07:20 Absolute Neutrophils 6.67 k/cumm (1.2-6.7) 05/11/19 07:20 Absolute Lymphocytes 0.65 k/cumm (1.2-3.4) L 05/11/19 07:20 Absolute Monocytes 0.70 k/cumm (0.11-0.7) 05/11/19 07:20 Absolute Eosinophils 0.00 k/cumm (0.0-0.7) 05/11/19 07:20 Absolute Basophils 0.00 k/cumm (0.0-0.2) 05/11/19 07:20 Sodium 139 mmol/L (136-145) 05/11/19 07:20 Potassium 5.5 mmol/L (3.5-5.1) H 05/11/19 07:20 Chloride 103 mmol/L (98-107) 05/11/19 07:20 Carbon Dioxide 30.3 mmol/L (21.0-32.0) 05/11/19 07:20 Anion Gap 5.7 mmol/L (3-11) 05/11/19 07:20 BUN 10 mg/dL (7-18) 05/11/19 07:20 Creatinine 0.63 mg/dL (0.55-1.02) 05/11/19 07:20 Estimated GFR/1.73 m2 >= 60.00 (mL/min/1.73m2) 05/11/19 07:20 Glucose 164 mg/dL (74-106) H 05/11/19 07:20 Lactate 0.6 mmol/L (0.6-1.4) 05/10/19 09:15 Calcium 9.3 mg/dL (8.5-10.1) 05/11/19 07:20 Magnesium 1.8 mg/dL (1.8-2.4) 05/11/19 07:20 Total Bilirubin 0.5 mg/dL (0.2-1.0) 05/10/19 09:15 AST 13 U/L (15-37) L 05/10/19 09:15 ALT 12 U/L (14-59) L 05/10/19 09:15 Alkaline Phosphatase 110 U/L (46-116) 05/10/19 09:15 Troponin I < 0.05 ng/Ml (<0.06) 05/10/19 11:53 Total Protein 7.1 g/dL (6.4-8.2) 05/10/19 09:15 Albumin 3.3 g/dL (3.4-5.0) L 05/10/19 09:15 Procalcitonin < 0.1 ng/mL 05/10/19 09:15 Urine Color Yellow (Yellow) 05/10/19 10:00 Urine Clarity Clear (Clear) 05/10/19 10:00 Urine pH 7.5 (5-8) 05/10/19 10:00 Ur Specific [place] >= 1.030 (1.005-1.025) H 05/10/19 10:00 Urine Protein Trace mg/dL (Negative) H 05/10/19 10:00 Urine Ketones Trace mg/dL (Negative) H 05/10/19 10:00 Urine Blood Small (Negative) H 05/10/19 10:00 Urine Nitrite Negative (Negative) 05/10/19 10:00 Urine Bilirubin Negative (Negative) 05/10/19 10:00 Urine Urobilinogen 1.0 EU/dL (Up TO 0.2) H 05/10/19 10:00 Ur Leukocyte Esterase Negative (Negative) 05/10/19 10:00 Urine RBC 5-10 HPF (0-2) H 05/10/19 10:00 Urine WBC Negative HPF (0-5) 05/10/19 10:00 Ur Epithelial Cells Rare HPF (Negative) 05/10/19 10:00 Urine Crystals Negative HPF (Negative) 05/10/19 10:00 Urine Bacteria Negative HPF (Negative) 05/10/19 10:00 Urine Casts Negative LPF (Negative) 05/10/19 10:00 Urine Mucus Negative (Negative) 05/10/19 10:00 Urine Other Rare renal (Negative) 05/10/19 10:00 Ur Culture Indicated? No 05/10/19 10:00 Urine Glucose Negative mg/dL (Negative) 05/10/19 10:00
[2019-05-11] MEDS: predniSONE 20 MG TAB 60 MG PO (12:42)
[2019-05-11] MEDS: Enoxaparin 40 MG/0.4 ML SYR SC (12:42)
--- NOTE | 2019-05-11 14:01 | W.NUTCONSULT ---
Date of service: 05/11/19 Time of Service: 14:01 Nutritional Consult ASSESSMENT: 74 year old female admitted with RLL PNA. Following regular meal plan with excellent intake. BMI wnl. Not considered at nutritional risk. Time Spent in Nutritional Counseling and Treatment: 0 time spent face to face
[2019-05-11 16:15] LABS: Potassium 4.3 mmol/L (3.5-5.1)
--- NOTE | 2019-05-11 19:00 | PDOC.CMPRO ---
- If Service Date Differs Date of service: 05/11/19 Time of Service: 19:00 Care Management Progress Note S/O: Laney was sitting up in bed when CM met with her. She expressed that she does not want to return to [facility], but she did not go into detail regarding her choice. CM offered to give her options for placement going forward, once she is ready to go home, which she declined. She stated that she will be going home when she leaves here. CM asked if she has been improving her mobility and strength since being at [facility] and working with PT. She stated that she is fairly confident that she will be ok at home. She lives alone in [place], but her son lives nearby. CM suggested that she work with PT while here to have her needs evaluated. She is interested in more support at home, as well as filling out a LT INDER application. CM will continue to follow. A: Laney is a 74 year old female admitted to [facility] on 05/10/2019 with Acute Exacerbation of COPD. P: Anticipate Laney will return home once medically cleared with HH services vs SNF placement, determined by PT evaluation and MD recommendations. Laney is interested in increasing service supports within her home setting to enable her to remain at home. CM will continue to support patient, family and discharge planning needs.
[2019-05-11] MEDS: Celecoxib 200 MG CAP PO (20:17)
[2019-05-11] MEDS: Acetaminophen 500 MG TAB 1000 MG PO (20:17)
[2019-05-12] VITALS (10 sets, daily range): BP systolic 109–122; BP diastolic 68–79; PULSE 85–100; RESP 1–20; TEMP 36–36.9; O2SAT 93–99
[2019-05-12] MEDS: Albuterol/Ipratropium 3 ML UPD VIAL UPD ×4 (00:34→18:34)
[2019-05-12] MEDS: oxyCODONE 5 MG TAB PO ×3 (01:04→18:34)
[2019-05-12] MEDS: Cyclobenzaprine 10 MG TAB 5 MG PO ×2 (01:04→21:13)
[2019-05-12] MEDS: guaiFENesin 600 MG TABCR PO ×2 (09:15→21:15)
[2019-05-12] MEDS: Pantoprazole 40 MG TABCR PO (10:20)
[2019-05-12] MEDS: predniSONE 20 MG TAB 40 MG PO (10:20)
[2019-05-12] MEDS: PO 3000 UNITS PO (10:21)
[2019-05-12] MEDS: Sertraline 50 MG TAB 100 MG PO (10:21)
[2019-05-12] MEDS: Calcitonin-Salmon, Synthetic 3.7 ML BTL NS (10:27)
[2019-05-12] MEDS: Benzonatate 100 MG CAP PO ×3 (10:28→21:14)
[2019-05-12] MEDS: Budesonide/Formoterol 160/4.5 6 GM 60 PUFF INH IH ×2 (10:40→21:15)
[2019-05-12] MEDS: Enoxaparin 40 MG/0.4 ML SYR SC (12:15)
[2019-05-12] MEDS: Amoxicillin 875/Clav. 125 TAB PO ×2 (12:15→21:15)
--- NOTE | 2019-05-12 13:02 | PT.INIE ---
Date of service: 05/12/19 Time of Service: 12:45 PT Notes Visit Reasons: ACUTE EXAC OF COPD W/HYPOXIA DUE TO RLL PNEU Inpatient Physical Therapy Evaluation Date: 05/12/19 Referring Doctor: Khadra Morin NP PT Orders: PT CONSULT: Evaluate and Treat Precautions: Standard Patient Profile/Admitting Diagnosis: Orders received for this 74-year-old female with a history of COPD. Patient with a recent acute exacerbation of her COPD. She also has a history of an old T12 compression fracture and recent back pain flareup. Patient was admitted to the hospital due to shortness of breath and complaints of fevers and coughing. Patient was diagnosed with pneumonia. She has been having some slight difficulty and had actually been a patient of [facility] before being admitted. She does appear to be on the mend however. PMHX: Medical History Anxiety (Chronic) Cervical neck pain with evidence of disc disease (Chronic 06/22/13) Chronic obstructive pulmonary disease (Chronic) Chronic pain syndrome (Chronic 12/15/16) CONTROLLED SUBSTANCE AGREEMENT 10/03/18 History of tobacco abuse (Chronic) Irritable bowel syndrome with diarrhea (Chronic) LLL pneumonia (Acute ~03/30/18) Surgical History Appendectomy CHEST TUBE Extraction of cataract 06/05/15; LEFT EYE; DR. ARAUZ H/O section (Chronic) Hx of hysterectomy (Chronic) LAMINECTOMY CERVICAL SPINE Right femoral fracture (Resolved 05/09/17) ORIF DOS: 05/10/17 Dr. Bob Social History/Home Situation: Patient lives in apartment in [facility] however prior to her admission she was at [facility] Equipment Owned/DME: Front wheel walker Subjective: Patient states that she does appear to be getting slightly better Objective: Patient lying supine in bed head of bed to 20 degrees, she is receiving oxygen delivered via nasal cannula Mental Status: Well oriented alert pleasant female who appears of stated age in no current acute distress, oriented to person place and time Pain: 2-3 out of 10 through the low back ROM: Right Upper Extremity: Within functional limits Left Upper Extremity: Within functional limits Right Lower Extremity: Within functional limits Left Lower Extremity: Within functional limits Strength: Right Upper Extremity: Grossly 5 out of 5 Left Upper Extremity: Grossly 5 out of 5 Right Lower Extremity: Grossly 5 out of 5 Left Lower Extremity: Grossly 5 out of 5 Bed Mobility/Transfers: Patient moves independently on the bed, independently able to mobilize linens Supine-sit: Independent Sit-stand: Contact-guard assist in front wheel walker Stand-sit: Contact-guard assist with the aid of front wheel walker Gait: Patient ambulates 20 feet complains of pain through the low back she is under contact-guard assist with front wheel walker Balance: Static Sitting: Good Dynamic Sitting: Good Static Standing: Good Dynamic Standing: Fair Special Tests: Mobility Limitations Standardized Measure [facility] AM-PAC 6 clicks Basic Mobility Inpatient Short Form: Raw Score: 20 standardized Score: 47.67 CMS Score: 35.83% Informed Consent/Education: Patient instructed in purpose of PT consult and plan of care. ASSESSMENT: Patient is a 74-year-old female with a history of good physical health Admitted with acute exacerbation of COPD, pneumonia Patient presents with the following impairment level findings: Ambulation intolerance, mild conditioning deficits with strength globally, assistance needed for ambulation more formally she was independent, complaints of low back pain pain with mobility being inhibited Pt will benefit from skilled therapy intervention in order to remedy their functional limitations and restore patient to a more appropriate and stable functional level. Impairments are contributing to the following functional limitations: AMPAC score 35.83%: Patient is assessed as a moderate complexity initial evaluation 46610 based on the following: History: see above Examination: see above Presentation: Evolving Decision Making: Moderate based on impact score 35.83% Goals: Goals X1 week 1. Sit-Stand independent 2. Stand-Sit independent 3. Bed-Chair independent 4. Gait independent up to 300 feet with least restrictive assistive device 5: Stairs independent up to 3 steps 6: Independent in Home program Plan of Care/Treatment Plan: 1-2x/day, 7 days/week x 1 week. Plan of care has been reviewed with the SLITTING MACHINE OPERATOR HELPER providing the service under Physical Therapy direction. Initiate Physical Therapy intervention for strengthening, bed mobility, transfers, gait, stairs, balance training, use of assistive device. DISCHARGE RECOMMENDATIONS: To home with the aid of home health services once medically stable TREATMENT CODE/TIME: Moderate complexity initial evaluation 34350, 15 minutes of direct billable care, 1245- 1:00 PM [facility]
--- NOTE | 2019-05-12 13:03 | RESPIRATORY ---
Pt asked if on home oxygen and she states she is. DME is [facility] and she's prescribed 2L all the time.
[2019-05-12 13:26] LABS: Procalcitonin 0.1 ng/mL
--- NOTE | 2019-05-12 16:44 | PGE_ITS ---
Date of Service Date of service: 05/12/19 Time of Service: 16:44 Assessment and Plan Assessment and plan (1) Acute exacerbation of chronic obstructive pulmonary disease (COPD): Status: Acute Assessment and plan: IV came out and patient does not want restarted on her IV. Chest x-ray did not confirm pneumonia. Sputum cultures growing Moraxella catarrhalis. I transitioned her over to oral antibiotics including Augmentin. We will continue her on prednisone 40 mg daily for 5-day course and then discontinue her prednisone. Continue Mucinex and pulmonary toiletry with incentive spirometry and Acapella. (2) T12 compression fracture: Status: Acute Assessment and plan: pain controlled on current regimen. continue assessment and adjust as needed. continue daily calcitonin Qualifiers: Encounter type: initial encounter Qualified Code(s): S22.080A - Wedge compression fracture of T11-T12 vertebra, initial encounter for closed fracture (3) Acute purulent bronchitis: Status: Acute Assessment and plan: Discontinue IV doxycycline and ceftriaxone. Begin Augmentin 875 mg p.o. twice daily for another 5 days. (4) Anxiety: Status: Chronic Assessment and plan: stable on home medications (5) Chronic pain syndrome: Status: Chronic Assessment and plan: stable, continue home medications (6) DVT prophylaxis: Status: Acute Assessment and plan: enoxaparin, TEDS and ambulation as able. (7) Discharge planning issues: Status: Acute Assessment and plan: will decline to return to [facility] rehab, plan for home discharge., case management following, services if appropriate. Possible discharge home tomorrow Subjective Subjective Interval history since last seen: Patient states that her breathing is about the same. No dyspnea at rest. She has a cough that is minimally productive of purulent yellow sputum. She remains afebrile. She lost her IV today and did not want to restart. Therefore I discontinued her ceftriaxone and doxycycline and put her on Augmentin for treatment of Moraxella bronchitis. She is currently on 2 L nasal cannula oxygen and she is saturating at 94-97%. Normally she is on oxygen for her COPD at 2 L/min. I told her that I think that she is nearly ready for discharge. She seemed surprised by told her that she did not have evidence for pneumonia. I reviewed her chest x-ray with her and the radiologist indicated that she has stable pulmonary scarring in the lung bases predominantly on the right. No acute pulmonary process was noted. Exam Narrative Exam Narrative: Thin elderly female sitting upright in bed in no acute distress. Lungs reveal prolonged expiratory phase without rhonchi or wheezing Heart is regular without appreciable murmur rub or gallop. Abdomen soft and nontender Extremities without peripheral cyanosis or edema. Objective Objective Clinical Data: Vital Signs Temperature 36.1 C L 05/12/19 15:45 Temperature Source Tympanic 05/12/19 15:45 Pulse 100 H 05/12/19 15:45 Pulse Rhythm Regular 05/12/19 16:21 Pulse 92 H 05/10/19 11:10 Respiratory Rate 20 05/12/19 15:45 Respiratory Effort Short of Breath 05/12/19 16:21 Respiratory Depth Shallow 05/12/19 16:21 Respiratory Pattern Normal 05/12/19 16:21 Blood Pressure 122/79 05/12/19 15:45 Blood Pressure Mean 64 05/10/19 10:16 Pulse Oximetry 94 L 05/12/19 15:45 Oxygen Delivery Method Nasal Cannula 05/12/19 15:45 Oxygen Flow Rate 2 05/12/19 15:45 Pain Level 0 05/12/19 15:45 Comment 05/11/19 18:42 Intake & Output 05/11/19 05/12/19 05/12/19 23:59 11:59 23:59 Intake Total 440 / 900 100 / 580 480 / 580 Output Total 600 / 1300 1050 / 1050 Balance -160 / -400 -950 / -470 480 / -470 Weight 62.7 kg Intake: IV 100 / 100 Oral 440 / 800 480 / 480 Output: Urine 600 / 1300 1050 / 1050 Other: Urine Color Yellow Yellow Urine Appearance Clear Cloudy Clear Urine Odor None None Stool Size Large Stool Characteristics Liquid Brown Voiding Methods Toilet Toilet Laboratory Results WBC 8.03 k/cumm (4.4-10.8) 05/11/19 07:20 RBC 4.10 m/cumm (4.00-5.20) 05/11/19 07:20 Hgb 12.4 g/dL (12.0-15.5) 05/11/19 07:20 Hct 39.4 % (36.0-46.0) 05/11/19 07:20 MCV 96.1 fL (80-95) H 05/11/19 07:20 MCH 30.2 pg (27.0-33.0) 05/11/19 07:20 MCHC 31.5 g/dL (32.0-36.0) L 05/11/19 07:20 RDW 12.3 % (11.7-14.6) 05/11/19 07:20 Plt Count 254 x1000/uL (130-400) 05/11/19 07:20 MPV 9.2 fL (8.0-11.0) 05/11/19 07:20 Immature Gran % 0.1 % 05/11/19 07:20 Neutrophils % 83.1 05/11/19 07:20 Lymphocytes % 8.1 05/11/19 07:20 Monocytes % 8.7 05/11/19 07:20 Eosinophils % 0.0 05/11/19 07:20 Basophils % 0.0 05/11/19 07:20 Absolute Neutrophils 6.67 k/cumm (1.2-6.7) 05/11/19 07:20 Absolute Lymphocytes 0.65 k/cumm (1.2-3.4) L 05/11/19 07:20 Absolute Monocytes 0.70 k/cumm (0.11-0.7) 05/11/19 07:20 Absolute Eosinophils 0.00 k/cumm (0.0-0.7) 05/11/19 07:20 Absolute Basophils 0.00 k/cumm (0.0-0.2) 05/11/19 07:20 Sodium 139 mmol/L (136-145) 05/11/19 07:20 Potassium 4.3 mmol/L (3.5-5.1) D 05/11/19 16:00 Chloride 103 mmol/L (98-107) 05/11/19 07:20 Carbon Dioxide 30.3 mmol/L (21.0-32.0) 05/11/19 07:20 Anion Gap 5.7 mmol/L (3-11) 05/11/19 07:20 BUN 10 mg/dL (7-18) 05/11/19 07:20 Creatinine 0.63 mg/dL (0.55-1.02) 05/11/19 07:20 Estimated GFR/1.73 m2 >= 60.00 (mL/min/1.73m2) 05/11/19 07:20 Glucose 164 mg/dL (74-106) H 05/11/19 07:20 Lactate 0.6 mmol/L (0.6-1.4) 05/10/19 09:15 Calcium 9.3 mg/dL (8.5-10.1) 05/11/19 07:20 Magnesium 1.8 mg/dL (1.8-2.4) 05/11/19 07:20 Total Bilirubin 0.5 mg/dL (0.2-1.0) 05/10/19 09:15 AST 13 U/L (15-37) L 05/10/19 09:15 ALT 12 U/L (14-59) L 05/10/19 09:15 Alkaline Phosphatase 110 U/L (46-116) 05/10/19 09:15 Troponin I < 0.05 ng/Ml (<0.06) 05/10/19 11:53 Total Protein 7.1 g/dL (6.4-8.2) 05/10/19 09:15 Albumin 3.3 g/dL (3.4-5.0) L 05/10/19 09:15 Procalcitonin 0.1 ng/mL 05/12/19 12:28 Urine Color Yellow (Yellow) 05/10/19 10:00 Urine Clarity Clear (Clear) 05/10/19 10:00 Urine pH 7.5 (5-8) 05/10/19 10:00 Ur Specific [place] >= 1.030 (1.005-1.025) H 05/10/19 10:00 Urine Protein Trace mg/dL (Negative) H 05/10/19 10:00 Urine Ketones Trace mg/dL (Negative) H 05/10/19 10:00 Urine Blood Small (Negative) H 05/10/19 10:00 Urine Nitrite Negative (Negative) 05/10/19 10:00 Urine Bilirubin Negative (Negative) 05/10/19 10:00 Urine Urobilinogen 1.0 EU/dL (Up TO 0.2) H 05/10/19 10:00 Ur Leukocyte Esterase Negative (Negative) 05/10/19 10:00 Urine RBC 5-10 HPF (0-2) H 05/10/19 10:00 Urine WBC Negative HPF (0-5) 05/10/19 10:00 Ur Epithelial Cells Rare HPF (Negative) 05/10/19 10:00 Urine Crystals Negative HPF (Negative) 05/10/19 10:00 Urine Bacteria Negative HPF (Negative) 05/10/19 10:00 Urine Casts Negative LPF (Negative) 05/10/19 10:00 Urine Mucus Negative (Negative) 05/10/19 10:00 Urine Other Rare renal (Negative) 05/10/19 10:00 Ur Culture Indicated? No 05/10/19 10:00 Urine Glucose Negative mg/dL (Negative) 05/10/19 10:00
--- NOTE | 2019-05-12 18:01 | CMPROGNOTE_ITS ---
- If Service Date Differs Date of service: 05/12/19 Time of Service: 18:01 Care Management Progress Note S/O: Laney was sitting up in bed when CM met with her. She expressed that she does not want to return to [facility], which she refers to as a kennel. She stated that she would prefer to go home but is not sure this is feasible at this time. She requested and was given information about area facilities. A: Laney is a 74 year old female admitted to [facility] on 05/10/2019 with Acute Exacerbation of COPD. P: Anticipate Laney will return home once medically cleared with HH services vs SNF placement, determined by PT evaluation and MD recommendations. Laney requested information about area facilities other than [facility] and was provided this information by MARIA. Laney is also interested in increasing service supports within her home setting to enable her to remain at home. She was provided with a [facility] LTM application by MARIA at her request and CM will assist with completion as able. CM will continue to support patient, family and discharge planning needs.
--- NOTE | 2019-05-12 18:39 | NUR.NOTE ---
Nursing Note: Patient expressed concern that CM was trying to convince her to go to a SNF. I read back the CM report to her. particularly the part that she had asked that CM provide her with information regarding SNF placement other than [facility], and that she asked that she be provided with information regarding [facility]. She did state that that was what she requested. She was asked if she had any further questions. She reported that she had none at that time.
[2019-05-12] MEDS: Celecoxib 200 MG CAP PO (21:14)
[2019-05-12] MEDS: Acetaminophen 500 MG TAB 1000 MG PO (21:14)
[2019-05-12] MEDS: clonazePAM 1 MG TAB PO (21:14)
[2019-05-12] MEDS: Lidocaine 5% Patch 2 PATCH TP (21:15)
[2019-05-13] VITALS (11 sets, daily range): BP systolic 98–136; BP diastolic 62–84; PULSE 79–90; RESP 1–22; TEMP 36.5–37.7; O2SAT 92–98
[2019-05-13] MEDS: Albuterol/Ipratropium 3 ML UPD VIAL UPD ×4 (00:53→17:51)
[2019-05-13] MEDS: Acetaminophen 500 MG TAB 1000 MG PO ×2 (07:56→16:43)
[2019-05-13] MEDS: predniSONE 20 MG TAB 40 MG PO (07:57)
[2019-05-13] MEDS: Sertraline 50 MG TAB 100 MG PO (07:57)
[2019-05-13] MEDS: Pantoprazole 40 MG TABCR PO (07:57)
[2019-05-13] MEDS: oxyCODONE 5 MG TAB PO ×3 (07:57→21:35)
[2019-05-13] MEDS: guaiFENesin 600 MG TABCR PO ×2 (07:57→19:48)
[2019-05-13] MEDS: PO 3000 UNITS PO (07:57)
[2019-05-13] MEDS: Amoxicillin 875/Clav. 125 TAB PO ×2 (07:58→19:49)
[2019-05-13] MEDS: Calcitonin-Salmon, Synthetic 3.7 ML BTL NS (07:58)
[2019-05-13] MEDS: Benzonatate 100 MG CAP PO ×3 (07:58→19:49)
[2019-05-13] MEDS: Budesonide/Formoterol 160/4.5 6 GM 60 PUFF INH IH ×2 (08:22→21:35)
--- NOTE | 2019-05-13 08:59 | PDOC.CMPRO ---
- If Service Date Differs Date of service: 05/13/19 Time of Service: 09:00 Care Management Progress Note S/O: Laney was sitting up in a chair visiting with her [id number]-jyz and 4 grandchildren when CM came to see her. She reinforced that she does not feel she can go home alone and requested that a referral be sent to [facility], which CM completed. A: Laney is a 74 year old woman admitted to [facility] on 05/10/2019 with Acute Exacerbation of COPD. P: Anticipate Laney will go to a SNF (not [facility]) before returning home. Laney requested information about area facilities other than [facility] and was provided this information by MARIA. Today she asked that a referral be sent to the [facility]. Laney is also interested in increasing service supports within her home setting to enable her to remain at home. She was provided with a [facility] LTM application by CM at her request and CM will assist with completion as able. CM will continue to support patient, family and discharge planning needs.
--- NOTE | 2019-05-13 10:30 | PTTR_ITS ---
Date of service: 05/13/19 Time of Service: 10:30 PT Notes Visit Reasons: ACUTE EXAC OF COPD W/HYPOXIA DUE TO RLL PNEU 05/13/19 SUBJECTIVE: Laney stating she is doing a little better. OBJECTIVE: Supine in bed. Agreeable to PT treatment. TRANSFERS Supine to sit: I Sit to supine: I Sit to stand: SBA Stand to sit: SBA GAIT Device: FWW Weight bearing: Full Assist: SBA Distance: 80' ASSESSMENT: Tolerates progression in gait distance well without complaints of SOB or LOB throughout. Able to carry on conversation during exercise. PLAN: Continue per POC. Direct time: [id number] Shelly Bonilla, CALL OR CONTACT CENTRE OPERATOR
[2019-05-13] MEDS: Celecoxib 200 MG CAP PO ×2 (10:54→17:53)
[2019-05-13] MEDS: Enoxaparin 40 MG/0.4 ML SYR SC (12:02)
[2019-05-13] MEDS: Cyclobenzaprine 10 MG TAB 5 MG PO ×2 (12:02→17:53)
[2019-05-13] MEDS: clonazePAM 1 MG TAB PO ×2 (13:08→19:49)
--- NOTE | 2019-05-13 15:27 | W.PM.PROGNOT ---
Date of Service Date of service: 05/13/19 Time of Service: 15:28 Assessment and Plan Assessment and plan (1) Acute exacerbation of chronic obstructive pulmonary disease (COPD): Status: Acute Assessment and plan: Patient continues to improve on Augmentin for Moraxella catarrhalis acute bronchitis. Patient continues to receive aerosolized bronchodilators as well as oral prednisone.. (2) T12 compression fracture: Status: Acute Assessment and plan: pain controlled on current regimen. continue assessment and adjust as needed. continue daily calcitonin Qualifiers: Encounter type: initial encounter Qualified Code(s): S22.080A - Wedge compression fracture of T11-T12 vertebra, initial encounter for closed fracture (3) Acute purulent bronchitis: Status: Acute Assessment and plan: Continue Augmentin 875 mg p.o. twice daily for another 5 days. (4) Anxiety: Status: Chronic Assessment and plan: stable on home medications (5) Chronic pain syndrome: Status: Chronic Assessment and plan: stable, continue home medications (6) DVT prophylaxis: Status: Acute Assessment and plan: enoxaparin, TEDS and ambulation as able. (7) Discharge planning issues: Status: Acute Assessment and plan: Referrals have been made to the [facility]. Discharge will be planned for tomorrow Subjective Subjective Patient reports: no new complaints Interval history since last seen: Breathing continues to improve. Cough is lessened and is no longer productive. She remains afebrile. Her oxygen saturation is stable at 92 to 96% on 2 L/min per nasal cannula which is her baseline oxygen requirement. She is now indicate a willingness to go to a nursing home facility for continued physical and occupational therapy to get her stronger so that she can return to her home independently. Her [id number] was visiting with the grandchildren this afternoon and is pleased that the patient has decided to go to a SNF. water technician put in referral to the [facility] in [place] as the patient declines to return to [facility] [place]. Exam Narrative Exam Narrative: Thin elderly female sitting upright in bed in no acute distress. Lungs reveal prolonged expiratory phase without rhonchi or wheezing Heart is regular without appreciable murmur rub or gallop. Abdomen soft and nontender Extremities without peripheral cyanosis or edema. Objective Objective Clinical Data: Vital Signs Temperature 36.5 C 05/13/19 03:28 Temperature Source Tympanic 05/13/19 03:28 Pulse 83 05/13/19 11:50 Pulse Rhythm Regular 05/13/19 02:40 Pulse 92 H 05/10/19 11:10 Respiratory Rate 16 05/13/19 11:50 Respiratory Effort Short of Breath 05/13/19 02:40 Respiratory Depth Shallow 05/13/19 02:40 Respiratory Pattern Normal 05/13/19 02:40 Blood Pressure 136/84 05/13/19 03:28 Blood Pressure Mean 64 05/10/19 10:16 Pulse Oximetry 96 05/13/19 11:50 Oxygen Delivery Method Nasal Cannula 05/13/19 11:47 Oxygen Flow Rate 2 05/13/19 11:47 Pain Level 9 05/13/19 07:57 Comment 05/11/19 18:42 Intake & Output 05/12/19 05/13/19 05/13/19 23:59 11:59 23:59 Intake Total 720 / 820 Output Total 1100 / 2150 Balance -380 / -1330 Weight 62.6 kg Intake: Oral 720 / 720 Output: Urine 1100 / 2150 Other: Urine Color Yellow Yellow Urine Appearance Clear Clear Urine Odor None Stool Occult Blood Negative Stool Size Large Stool Characteristics Liquid Voiding Methods Toilet Toilet Laboratory Results WBC 8.03 k/cumm (4.4-10.8) 05/11/19 07:20 RBC 4.10 m/cumm (4.00-5.20) 05/11/19 07:20 Hgb 12.4 g/dL (12.0-15.5) 05/11/19 07:20 Hct 39.4 % (36.0-46.0) 05/11/19 07:20 MCV 96.1 fL (80-95) H 05/11/19 07:20 MCH 30.2 pg (27.0-33.0) 05/11/19 07:20 MCHC 31.5 g/dL (32.0-36.0) L 05/11/19 07:20 RDW 12.3 % (11.7-14.6) 05/11/19 07:20 Plt Count 254 x1000/uL (130-400) 05/11/19 07:20 MPV 9.2 fL (8.0-11.0) 05/11/19 07:20 Immature Gran % 0.1 % 05/11/19 07:20 Neutrophils % 83.1 05/11/19 07:20 Lymphocytes % 8.1 05/11/19 07:20 Monocytes % 8.7 05/11/19 07:20 Eosinophils % 0.0 05/11/19 07:20 Basophils % 0.0 05/11/19 07:20 Absolute Neutrophils 6.67 k/cumm (1.2-6.7) 05/11/19 07:20 Absolute Lymphocytes 0.65 k/cumm (1.2-3.4) L 05/11/19 07:20 Absolute Monocytes 0.70 k/cumm (0.11-0.7) 05/11/19 07:20 Absolute Eosinophils 0.00 k/cumm (0.0-0.7) 05/11/19 07:20 Absolute Basophils 0.00 k/cumm (0.0-0.2) 05/11/19 07:20 Sodium 139 mmol/L (136-145) 05/11/19 07:20 Potassium 4.3 mmol/L (3.5-5.1) D 05/11/19 16:00 Chloride 103 mmol/L (98-107) 05/11/19 07:20 Carbon Dioxide 30.3 mmol/L (21.0-32.0) 05/11/19 07:20 Anion Gap 5.7 mmol/L (3-11) 05/11/19 07:20 BUN 10 mg/dL (7-18) 05/11/19 07:20 Creatinine 0.63 mg/dL (0.55-1.02) 05/11/19 07:20 Estimated GFR/1.73 m2 >= 60.00 (mL/min/1.73m2) 05/11/19 07:20 Glucose 164 mg/dL (74-106) H 05/11/19 07:20 Lactate 0.6 mmol/L (0.6-1.4) 05/10/19 09:15 Calcium 9.3 mg/dL (8.5-10.1) 05/11/19 07:20 Magnesium 1.8 mg/dL (1.8-2.4) 05/11/19 07:20 Total Bilirubin 0.5 mg/dL (0.2-1.0) 05/10/19 09:15 AST 13 U/L (15-37) L 05/10/19 09:15 ALT 12 U/L (14-59) L 05/10/19 09:15 Alkaline Phosphatase 110 U/L (46-116) 05/10/19 09:15 Troponin I < 0.05 ng/Ml (<0.06) 05/10/19 11:53 Total Protein 7.1 g/dL (6.4-8.2) 05/10/19 09:15 Albumin 3.3 g/dL (3.4-5.0) L 05/10/19 09:15 Procalcitonin 0.1 ng/mL 05/12/19 12:28 Urine Color Yellow (Yellow) 05/10/19 10:00 Urine Clarity Clear (Clear) 05/10/19 10:00 Urine pH 7.5 (5-8) 05/10/19 10:00 Ur Specific [place] >= 1.030 (1.005-1.025) H 05/10/19 10:00 Urine Protein Trace mg/dL (Negative) H 05/10/19 10:00 Urine Ketones Trace mg/dL (Negative) H 05/10/19 10:00 Urine Blood Small (Negative) H 05/10/19 10:00 Urine Nitrite Negative (Negative) 05/10/19 10:00 Urine Bilirubin Negative (Negative) 05/10/19 10:00 Urine Urobilinogen 1.0 EU/dL (Up TO 0.2) H 05/10/19 10:00 Ur Leukocyte Esterase Negative (Negative) 05/10/19 10:00 Urine RBC 5-10 HPF (0-2) H 05/10/19 10:00 Urine WBC Negative HPF (0-5) 05/10/19 10:00 Ur Epithelial Cells Rare HPF (Negative) 05/10/19 10:00 Urine Crystals Negative HPF (Negative) 05/10/19 10:00 Urine Bacteria Negative HPF (Negative) 05/10/19 10:00 Urine Casts Negative LPF (Negative) 05/10/19 10:00 Urine Mucus Negative (Negative) 05/10/19 10:00 Urine Other Rare renal (Negative) 05/10/19 10:00 Ur Culture Indicated? No 05/10/19 10:00 Urine Glucose Negative mg/dL (Negative) 05/10/19 10:00
[2019-05-13] MEDS: Lidocaine 5% Patch 2 PATCH TP (19:50)
[2019-05-14] VITALS (12 sets, daily range): BP systolic 108–128; BP diastolic 64–81; PULSE 72–98; RESP 1–20; TEMP 36.4–37.2; O2SAT 94–99
[2019-05-14] MEDS: Albuterol/Ipratropium 3 ML UPD VIAL UPD ×3 (00:16→11:53)
[2019-05-14] MEDS: oxyCODONE 5 MG TAB PO ×3 (01:57→13:25)
[2019-05-14] MEDS: Cyclobenzaprine 10 MG TAB 5 MG PO (06:38)
[2019-05-14 06:59] LABS: Platelet Count 317 x1000/uL (130-400)
[2019-05-14] MEDS: Budesonide/Formoterol 160/4.5 6 GM 60 PUFF INH IH (07:52)
[2019-05-14] MEDS: Calcitonin-Salmon, Synthetic 3.7 ML BTL NS (09:02)
[2019-05-14] MEDS: Amoxicillin 875/Clav. 125 TAB PO (09:02)
[2019-05-14] MEDS: predniSONE 20 MG TAB 40 MG PO (09:03)
[2019-05-14] MEDS: guaiFENesin 600 MG TABCR PO (09:03)
[2019-05-14] MEDS: PO 3000 UNITS PO (09:04)
[2019-05-14] MEDS: Sertraline 50 MG TAB 100 MG PO (09:04)
[2019-05-14] MEDS: Pantoprazole 40 MG TABCR PO (09:04)
[2019-05-14] MEDS: Benzonatate 100 MG CAP PO ×2 (09:04→14:29)
[2019-05-14] MEDS: clonazePAM 1 MG TAB PO (09:14)
--- NOTE | 2019-05-14 09:19 | PTTR_ITS ---
Date of service: 05/14/19 Time of Service: 10:54 PT Notes Visit Reasons: ACUTE EXAC OF COPD W/HYPOXIA DUE TO RLL PNEU 05/14/19 SUBJECTIVE: Laney stating she will be going to the [facility] for rehab prior to returning home. She does not feel she will be safe at home. Today she notes increase in back pain and her throat is sore. OBJECTIVE: Supine in bed. Agreeable to PT treatment. TRANSFERS Supine to sit: I Sit to supine: I Sit to stand: SBA Stand to sit: SBA GAIT Device: FWW Weight bearing: Full Assist: SBA Distance: 80' Deviation: 2 L NC ASSESSMENT: Tolerates her mobility well today with no SOB noted. Able to carry on converstation throughout. She does complain of LE weakness as well as discomfort in her back. PLAN: Continue to progress as she tolerates. Treatment time: Shelly Bonilla, MEDICINE WORKER
--- NOTE | 2019-05-14 10:28 | W.PM.PROGNOT ---
Date of Service Date of service: 05/14/19 Time of Service: 10:28 Assessment and Plan Assessment and plan (1) Acute exacerbation of chronic obstructive pulmonary disease (COPD): Status: Acute Assessment and plan: Patient continues to improve on Augmentin for Moraxella catarrhalis acute bronchitis. Patient continues to receive aerosolized bronchodilators as well as oral prednisone. I will have her complete her prednisone and Augmentin through May 17, 2019. (2) Acute purulent bronchitis: Status: Acute Assessment and plan: Continue Augmentin 875 mg p.o. twice daily for another 3 days. (3) T12 compression fracture: Status: Acute Assessment and plan: pain controlled on current regimen. continue assessment and adjust as needed. continue daily calcitonin Qualifiers: Encounter type: initial encounter Qualified Code(s): S22.080A - Wedge compression fracture of T11-T12 vertebra, initial encounter for closed fracture (4) Anxiety: Status: Chronic Assessment and plan: stable on home medications (5) Chronic pain syndrome: Status: Chronic Assessment and plan: I have added naproxen and Robaxin and tramadol for back pain (6) DVT prophylaxis: Status: Acute Assessment and plan: enoxaparin, TEDS and ambulation as able. (7) Discharge planning issues: Status: Acute Assessment and plan: Referrals have been made to the [facility]. Discharge pending acceptance to the [facility] Subjective Subjective Interval history since last seen: Patient reports increased lower back pain but points to the paralumbar musculature on either side. She has known T12 vertebral compression fracture as well as old L2 compression fracture. I started her on vitamin D and calcium as well as calcitonin nasal spray. I am going to add Robaxin and naproxen and as needed dosing of tramadol. As for her COPD exacerbation I think she is getting back to baseline. She remains on prednisone 40 mg daily. I will keep her on this for another 3 days. . She will continue the Augmentin for her Moraxella catarrhalis bronchitis for another 3 days. (Through 05/17/2019) Case management is looking into referring her to the [facility] today. Referral request was sent out. Exam Narrative Exam Narrative: Elderly female sitting up in bed. Complaining of lower back pain. Lungs revealed some bibasilar rales, no wheezing and no rhonchi. Heart is regular rate and rhythm without murmur rub or gallop. Lower back is tender along the right and left para lumbar musculature. Objective Objective Clinical Data: Vital Signs Temperature 36.4 C L 05/14/19 09:36 Temperature Source Tympanic 05/14/19 09:36 Pulse 96 H 05/14/19 09:36 Pulse Rhythm Regular 05/14/19 00:05 Pulse 92 H 05/10/19 11:10 Respiratory Rate 20 05/14/19 09:36 Respiratory Effort 05/14/19 07:54 Respiratory Depth Normal 05/14/19 07:54 Respiratory Pattern Normal 05/14/19 00:05 Blood Pressure 108/64 05/14/19 09:36 Blood Pressure Mean 64 05/10/19 10:16 Pulse Oximetry 94 L 05/14/19 09:36 Oxygen Delivery Method Nasal Cannula 05/14/19 09:36 Oxygen Flow Rate 2 05/14/19 09:36 Pain Level 10 05/14/19 09:36 Comment 05/11/19 18:42 Intake & Output 05/13/19 05/13/19 05/14/19 11:59 23:59 11:59 Intake Total 250 / 250 1120 / 1120 Output Total 800 / 1500 700 / 1500 950 / 950 Balance -800 / -1250 -450 / -1250 170 / 170 Weight 62.6 kg 63.2 kg Intake: Oral 250 / 250 1120 / 1120 Output: Urine 800 / 1500 700 / 1500 950 / 950 Other: Urine Color Yellow Yellow Light Iva Urine Appearance Clear Clear Clear Urine Odor Normal None Normal Comment amount in two voids, one 500 then 300. Voiding Methods Toilet Toilet Toilet Laboratory Results WBC 8.03 k/cumm (4.4-10.8) 05/11/19 07:20 RBC 4.10 m/cumm (4.00-5.20) 05/11/19 07:20 Hgb 12.4 g/dL (12.0-15.5) 05/11/19 07:20 Hct 39.4 % (36.0-46.0) 05/11/19 07:20 MCV 96.1 fL (80-95) H 05/11/19 07:20 MCH 30.2 pg (27.0-33.0) 05/11/19 07:20 MCHC 31.5 g/dL (32.0-36.0) L 05/11/19 07:20 RDW 12.3 % (11.7-14.6) 05/11/19 07:20 Plt Count 317 x1000/uL (130-400) 05/14/19 06:10 MPV 9.2 fL (8.0-11.0) 05/11/19 07:20 Immature Gran % 0.1 % 05/11/19 07:20 Neutrophils % 83.1 05/11/19 07:20 Lymphocytes % 8.1 05/11/19 07:20 Monocytes % 8.7 05/11/19 07:20 Eosinophils % 0.0 05/11/19 07:20 Basophils % 0.0 05/11/19 07:20 Absolute Neutrophils 6.67 k/cumm (1.2-6.7) 05/11/19 07:20 Absolute Lymphocytes 0.65 k/cumm (1.2-3.4) L 05/11/19 07:20 Absolute Monocytes 0.70 k/cumm (0.11-0.7) 05/11/19 07:20 Absolute Eosinophils 0.00 k/cumm (0.0-0.7) 05/11/19 07:20 Absolute Basophils 0.00 k/cumm (0.0-0.2) 05/11/19 07:20 Sodium 139 mmol/L (136-145) 05/11/19 07:20 Potassium 4.3 mmol/L (3.5-5.1) D 05/11/19 16:00 Chloride 103 mmol/L (98-107) 05/11/19 07:20 Carbon Dioxide 30.3 mmol/L (21.0-32.0) 05/11/19 07:20 Anion Gap 5.7 mmol/L (3-11) 05/11/19 07:20 BUN 10 mg/dL (7-18) 05/11/19 07:20 Creatinine 0.63 mg/dL (0.55-1.02) 05/11/19 07:20 Estimated GFR/1.73 m2 >= 60.00 (mL/min/1.73m2) 05/11/19 07:20 Glucose 164 mg/dL (74-106) H 05/11/19 07:20 Lactate 0.6 mmol/L (0.6-1.4) 05/10/19 09:15 Calcium 9.3 mg/dL (8.5-10.1) 05/11/19 07:20 Magnesium 1.8 mg/dL (1.8-2.4) 05/11/19 07:20 Total Bilirubin 0.5 mg/dL (0.2-1.0) 05/10/19 09:15 AST 13 U/L (15-37) L 05/10/19 09:15 ALT 12 U/L (14-59) L 05/10/19 09:15 Alkaline Phosphatase 110 U/L (46-116) 05/10/19 09:15 Troponin I < 0.05 ng/Ml (<0.06) 05/10/19 11:53 Total Protein 7.1 g/dL (6.4-8.2) 05/10/19 09:15 Albumin 3.3 g/dL (3.4-5.0) L 05/10/19 09:15 Procalcitonin 0.1 ng/mL 05/12/19 12:28 Urine Color Yellow (Yellow) 05/10/19 10:00 Urine Clarity Clear (Clear) 05/10/19 10:00 Urine pH 7.5 (5-8) 05/10/19 10:00 Ur Specific [place] >= 1.030 (1.005-1.025) H 05/10/19 10:00 Urine Protein Trace mg/dL (Negative) H 05/10/19 10:00 Urine Ketones Trace mg/dL (Negative) H 05/10/19 10:00 Urine Blood Small (Negative) H 05/10/19 10:00 Urine Nitrite Negative (Negative) 05/10/19 10:00 Urine Bilirubin Negative (Negative) 05/10/19 10:00 Urine Urobilinogen 1.0 EU/dL (Up TO 0.2) H 05/10/19 10:00 Ur Leukocyte Esterase Negative (Negative) 05/10/19 10:00 Urine RBC 5-10 HPF (0-2) H 05/10/19 10:00 Urine WBC Negative HPF (0-5) 05/10/19 10:00 Ur Epithelial Cells Rare HPF (Negative) 05/10/19 10:00 Urine Crystals Negative HPF (Negative) 05/10/19 10:00 Urine Bacteria Negative HPF (Negative) 05/10/19 10:00 Urine Casts Negative LPF (Negative) 05/10/19 10:00 Urine Mucus Negative (Negative) 05/10/19 10:00 Urine Other Rare renal (Negative) 05/10/19 10:00 Ur Culture Indicated? No 05/10/19 10:00 Urine Glucose Negative mg/dL (Negative) 05/10/19 10:00
[2019-05-14] MEDS: Naproxen 500 MG TAB PO (11:20)
[2019-05-14] MEDS: Methocarbamol 750 MG TAB 1500 MG PO (11:20)
[2019-05-14] MEDS: Enoxaparin 40 MG/0.4 ML SYR SC (12:16)
--- NOTE | 2019-05-14 12:49 | DSE_ITS ---
DS: Diagnosis Discharge Diagnosis (1) Acute exacerbation of chronic obstructive pulmonary disease (COPD): Status: Acute Asessment and Plan: Patient is to continue pulmonary toiletry with Acapella and incentive spirometer every couple hours while awake. She is to finish out her Augmentin for another 4 days 875 mg twice a day. She is to continue prednisone 40 mg daily for 4 more days. She can use Mucinex twice a day as needed. She should continue all of her other maintenance medications including her Symbicort (2) Acute purulent bronchitis: Status: Acute Asessment and Plan: As above (3) T12 compression fracture: Status: Acute Asessment and Plan: Patient will continue Robaxin 1500 mg 3 times a day along with tramadol 50 to 100 mg p.o. 4 times daily as needed pain she can also use naproxen 500 mg twice a day as needed. She will continue with the Lidoderm patches over her thoracic spine. She is encouraged to ambulate and work with physical therapy to improve her strength and gait. She should remain on calcium and vitamin D along with calcitonin nasal spray to treat her osteoporosis. (4) Anxiety: Status: Chronic Asessment and Plan: Should be given Klonopin 1 mg twice a day as needed for anxiety. (5) Chronic pain syndrome: Status: Chronic Asessment and Plan: See plan above under thoracic compression fracture (6) DVT prophylaxis: Status: Resolved (7) Discharge planning issues: Status: Acute Asessment and Plan: Patient will be discharged once she is completed rehabilitation with PT and OT at the [facility] Discharge Plan Disposition Patient Disposition: SNF (LEVEL 1) [facility] Condition: Good Discharge Details Chief Complaint: SOB Clinical Impression: Bacterial pneumonia Reason For Visit: ACUTE EXAC OF COPD W/HYPOXIA DUE TO RLL PNEU Admit Date/Time: 05/10/19 10:43 Admit Provider: Marti Carmona Attending Provider: Marti Carmona Primary Care Provider: Ralph Rahman ED Provider: [facility] Course Hospital Course: 74-year-old female with past medical history of COPD oxygen dependent on 2 LPM, vertebral compression fractures, previous cervical laminectomy, who is undergoing rehabilitation at [facility] after sustaining a fall at home and suffering thoracic spine compression fractures. She developed cough cold fevers and shortness of breath for about 2 days and had increased oxygen requirements with her hypoxemia going down to 80 to 85% 2 L/min per nasal cannula. Cough is been purulent of green sputum. Initially chest x-ray taken in the emergency department suggested a right lower lobe infiltrate. She was started on Solu-Medrol doxycycline and Rocephin. Initial work-up demonstrated a normal CBC with a white count of 8000 no anemia. Procalcitonin level was less than 0.1. Patient was maintained on Rocephin and doxycycline along with corticosteroids and aerosolized bronchodilators and Mucinex. However on May 12, 2019 which was her third hospital day her IV came out and she refused to have it restarted. By that time her sputum culture come back growing Moraxella catarrhalis. I discontinued IV antibiotics and kept her on Augmentin 875 mg twice a day. She was continued on prednisone 40 mg daily along with pulmonary toiletry with incentive spirometry and Acapella. She did well with this with no fever and no leukocytosis. She was able to be weaned down to her baseline oxygen of 2 LPM. She continued to complain of lower back pains for which she was put on Naproxen and Robaxin and prn Tramadol. She is willing to continue w/ a SNF for a few more days of rehab until she is fully independent. Her goal it to return home. While at [facility] she received P.T. and had no dyspnea w/ PT while walking w/ FWW for 80 ft on the day of discharge. She should complete her prednisone and Augmentin through 05/17/2019 which would be a full 7 days of treatment. Home Meds and New Rx's Prescriptions: New prednisone 20 mg Tablet 40 mg PO DAILY 4 Days Qty: 8 RF: 0 tramadol 50 mg Tablet 50 - 100 mg PO Q4H PRN PRN7 Days Qty: 28 RF: 0 methocarbamol 750 mg Tablet 1,500 mg PO TID 7 Days Qty: 42 RF: 0 benzonatate 100 mg Capsule 100 mg PO TID 7 Days Qty: 21 RF: 0 pantoprazole 40 mg Tablet,Delayed Release (Dr/Ec) 40 mg PO DAILY@0730 Qty: 30 RF: 0 lidocaine [Lidoderm] 5 % Adhesive Patch,Medicated 2 patch topical QPM Qty: 30 RF: 0 naproxen 500 mg Tablet 500 mg PO BID 7 Days Qty: 14 RF: 0 amoxicillin-pot clavulanate 875-125 mg Tablet 1 tab PO BID 4 Days Qty: 8 RF: 0 Symbicort 160-4.5 mcg/actuation Hfa Aerosol Inhaler 2 puff inhalation BID Qty: 10.2 RF: 0 Continued Trelegy Ellipta 100-62.5-25 mcg blister with device 1 inh IH DAILY Qty: 28 RF: 11 Daliresp 500 mcg tablet 500 mcg PO DAILY Qty: 90 RF: 3 sertraline 100 mg tablet 100 mg PO DAILY Qty: 90 RF: 3 clonazepam 1 mg tablet 1 mg PO BID PRN (Reason: anxiety) Qty: 60 RF: 1 albuterol sulfate [Proventil HFA] 90 mcg/actuation HFA aerosol inhaler 2 puff IH Q6H PRN (Reason: shortness of breath or wheezing) Qty: 6.7 RF: 3 celecoxib 200 mg capsule 200 mg PO BID PRN (Reason: pain) Qty: 60 RF: 1 acetaminophen 500 mg tablet 1,000 mg PO Q8H PRN (Reason: pain) Qty: 90 RF: 3 Narcan 4 mg/actuation spray,non-aerosol 1 spray KELL Q2-3M PRN (Reason: opioid overdose) Qty: 2 RF: 0 bisacodyl [Dulcolax (bisacodyl)] 5 mg tablet,delayed release (DR/EC) 5 mg PO DAILY PRN (Reason: constipation) Qty: 7 RF: 0 cholecalciferol (vitamin D3) [Vitamin D3] 2,000 unit Tablet 3,000 unit PO DAILY RF: 0 calcitonin (salmon) 200 unit/actuation [place],Non-Aerosol 1 spray intranasal DAILY RF: 0 Changed guaifenesin [Mucinex] 600 MG tablet extended release 12hr 600 mg PO BID 7 Days Qty: 0 RF: 0 Discontinued cyclobenzaprine 5 mg tablet 5 mg PO BID PRN (Reason: Spasms) Qty: 28 RF: 1 oxycodone 10 mg tablet 5 mg PO Q4H PRN (Reason: pain) RF: 0 No Action (DME) Oxygen Tank See Rx Instructions .ROUTE .MEDSUPPLY Qty: 1 RF: 0 Salonpas 1 EACH adhesive patch,medicated 1 ea Topical .DAILY X 12 HOURS RF: 0 camphor-methyl salicyl-menthol Adhesive Patch,Medicated 1 patch TOPICAL DAILY RF: 0 Discharge Instructions Activity:: Activity as Tolerated Equipment/Supplies:: No Equipment Needed Diet:: As Tolerated Discharge Orders Discharge Orders: Discharge Order (Routine); Ordered 05/14/19 Ordered By: Jimbo Reyes DS: Summary Status at Discharge Functional status at discharge: uses cane/walker Overall status at discharge: patient is progressing back to baseline Mental Status: mental status grossly normal Speech and Movement: speech and movement normal Mood: congruent mood Affect: normal affect Time Spent with Patient providing and/or coordinating discharge services: Greater than 30 minutes Exam Narrative Exam Narrative: Elderly female sitting up in bed. Complaining of lower back pain. Lungs revealed some bibasilar rales, no wheezing and no rhonchi. Heart is regular rate and rhythm without murmur rub or gallop. Lower back is tender along the right and left para lumbar musculature. Psych Mental Status: mental status grossly normal Speech and Movement: speech and movement normal Mood: congruent mood Affect: normal affect DS: Data Vitals/I&O Vitals and I&O: Vital Signs Temperature 37.2 C 05/14/19 11:27 Temperature Source Tympanic 05/14/19 11:27 Pulse 84 05/14/19 11:54 Pulse Rhythm Regular 05/14/19 00:05 Pulse 92 H 05/10/19 11:10 Respiratory Rate 14 05/14/19 11:54 Respiratory Effort 05/14/19 07:54 Respiratory Depth Normal 05/14/19 07:54 Respiratory Pattern Normal 05/14/19 00:05 Blood Pressure 118/81 05/14/19 11:27 Blood Pressure Mean 64 05/10/19 10:16 Pulse Oximetry 99 05/14/19 11:54 Oxygen Delivery Method Nasal Cannula 05/14/19 11:53 Oxygen Flow Rate 2 05/14/19 11:53 Pain Level 5 05/14/19 11:27 Comment 05/11/19 18:42 Intake & Output 05/13/19 05/14/19 05/14/19 23:59 11:59 23:59 Intake Total 250 / 250 1120 / 1120 Output Total 700 / 1500 950 / 950 Balance -450 / -1250 170 / 170 Weight 63.2 kg Intake: Oral 250 / 250 1120 / 1120 Output: Urine 700 / 1500 950 / 950 Other: Urine Color Yellow Light Iav Urine Appearance Clear Clear Urine Odor None Normal Voiding Methods Toilet Toilet Data Completed and Pending Labs on day of discharge: Labs from last 24 hours 05/14/19 06:10 Plt Count 317 Preliminary micro results at discharge 05/10/19 09:30 Blood Culture - Preliminary Blood NO GROWTH 96 HOURS 05/10/19 09:15 Blood Culture - Preliminary Blood NO GROWTH 96 HOURS PFS Medical History Anxiety (Chronic) Cervical neck pain with evidence of disc disease (Chronic 06/22/13) Chronic obstructive pulmonary disease (Chronic) Chronic pain syndrome (Chronic 12/15/16) CONTROLLED SUBSTANCE AGREEMENT 10/03/18 History of tobacco abuse (Chronic) Irritable bowel syndrome with diarrhea (Chronic) LLL pneumonia (Acute ~03/30/18) Surgical History Appendectomy CHEST TUBE Extraction of cataract 06/05/15; LEFT EYE; DR. ARAUZ H/O section (Chronic) Hx of hysterectomy (Chronic) LAMINECTOMY CERVICAL SPINE Right femoral fracture (Resolved 05/09/17) ORIF DOS: 05/10/17 Dr. Bob Social History Smoking/Tobacco Use Status: Former Tobacco Use Quit Date: 09/16/13 Pack-years: 50 Alcohol Intake: former Year quit: 1979 Drug use: Never Substance use type: does not use Other: living along; missing her family; lonely Do you feel safe at home: Yes Do you feel safe in your relationship?: No Additional Social history: 16 years ago. Originally from [place], moved here to be near son and grand children. On disability due to chronic back pain. 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 Approximate 75 pack year history of tobacco. No alcohol or illicit drug use endorsed.
--- NOTE | 2019-05-14 14:11 | PT.INTREAT ---
Date of service: 05/14/19 Time of Service: 14:11 PT Notes Visit Reasons: ACUTE EXAC OF COPD W/HYPOXIA DUE TO RLL PNEU 05/14/19 SUBJECTIVE: Pt stating she feels good this afternoon as long as she is not moving around. Her back pain increases upon movement. OBJECTIVE: Supine in bed. Agreeable to PT treatment. TRANSFERS Supine to sit: I Sit to supine: I Sit to stand: I Stand to sit: I GAIT Device: FWW Weight bearing: Full Assist: SBA Distance: 100'x2 Deviation: 2 L NC, 1 sit rest break ASSESSMENT: Able to increase her gait distance this PM with one sit rest break due to fatigue. No SOB noted throughout, good management of walker throughout. PLAN. Continue per POC. Treatment time: 15 Shelly Bonilla, SENIOR QUAL[employer] INSPECTOR
--- NOTE | 2019-05-14 17:12 | CMDISCH_ITS ---
- If Service Date Differs Date of service: 05/14/19 Time of Service: 17:12 LACE Index Scoring Tool - Questions: Length of Stay (in days): 4 - 6 Acuity (Admit via E.D.?): Yes Comorbidities: Chronic Pulmonary Disease E.D. Visits: 3 - Answers: Total Score: 12 Risk of Readmission: High Risk Care Management Discharge Reason for Hospitalization: Acute exacerbation of COPD w/Hypoxia due to RLL Pneumonia Discharge Plan: Laney will be discharged to [facility] for short term rehab. She will follow up with her PCP and discharge plan as determined by the facility. Laney will transport vis [facility] coordinated by CM. Patient/Family Education Needs: Discharge plan, limitations, expectations.
== END 2019-05-14 14:28 | disposition skilled nursing facility (03) | DRG 192 ==
LOC: ER 09:31 → MS 11:30
PROVIDERS: Nurse Practitioner Acute Care; Admitting Provider Internal Medicine; Emergency Provider Physician Assistant; PCP Family Medicine; Visit Provider Internal Medicine
DX: J44.1 Chronic obstructive pulmonary disease with (acute) exacerbation (principal); R09.02 Hypoxemia; J44.0 Chronic obstructive pulmonary disease with (acute) lower respiratory infection; E87.5 Hyperkalemia; J20.8 Acute bronchitis due to other specified organisms; Z99.81 Dependence on supplemental oxygen; Z87.891 Personal history of nicotine dependence; F41.9 Anxiety disorder, unspecified; S22.080D Wedge compression fracture of T11-T12 vertebra, subsequent encounter for fracture with routine healing; W19.XXXD Unspecified fall, subsequent encounter; G89.4 Chronic pain syndrome; M81.0 Age-related osteoporosis without current pathological fracture
CPT/HCPCS: 36415; 80048; 80053; 84145; 87040; 87077; 87081; 93005; 94640; 96361; 96374; 96375; 97162; 97530; 99223; 99232; 99233; 99239; 99285; J1650; 71046; 81003; 81015; 83605; 83735; 84132; 84484; 85025; 85049; 87070; 87205; 93010; 99222; 99231; J0696; J2930; J7512; J7613; J7620

== ENCOUNTER 2019-06-17 13:47 | Emergency (ER) | payer MEDICARE, OTHER, MEDICAID, SELFPAY ==
[2019-06-17 13:52] VITALS: BP 115/62; PULSE 102; RESP 20; TEMP 36.6; O2SAT 90
[2019-06-17 14:35] LABS: Bilirubin Negative (Negative); Blood Trace-lysed (Negative); Clarity Clear (Clear); Glucose Negative (Negative); Ketones Negative (Negative); Leukocyte Esterase Negative (Negative); Nitrite Negative (Negative); Urobilinogen 0.2 EU/dL (Up TO 0.2)
--- NOTE | 2019-06-17 14:46 | DI.RAD_ITS ---
EXAM: XR LUMBAR SPINE COMPLETE INDICATION: Walked into a door, history of compression fracture COMPARISON: CT LUMBAR SPINE SI JOINTS WO from 04/15/2019 XR THORACIC SPINE COMPLETE from 05/03/2019 TECHNIQUE: 2D digital imaging was performed. FINDINGS: There has been no change in the mild compression fractures of T12 and L2. There are also mild robel booker of the T10 and T11 vertebral bodies. No acute fracture, spondylolysis or spondylolisthesis is s een. The bones appear osteoporotic. The aorta is calcified but normal in diameter. IMPRESSION: Stable lower thoracic L2 compression fractures. No acute abnormality is seen. DATA REPOSITORY: RADIATION DOSE DELIVERED:
[2019-06-17 14:51] LABS: Bacteria Negative HPF (Negative); Casts Negative LPF (Negative); Crystals Negative HPF (Negative); Epithelial Cells Few HPF (Negative); Mucus Negative (Negative)
[2019-06-17 14:52] LABS: C & S Indicated? No
--- NOTE | 2019-06-17 15:35 | ED.GENADUL_ITS ---
Discharge Plan Disposition Patient Disposition: HOME Condition: Stable Discharge Details Chief Complaint: Nk/Back Pain Clinical Impression: Acute exacerbation of chronic low back pain Primary Care Provider: Ralph Rahman ED Provider: Jimbo Zavala Home Meds and New Rx's Prescriptions: Continued (DME) Oxygen Tank See Rx Instructions .ROUTE .MEDSUPPLY Qty: 1 RF: 0 Trelegy Ellipta 100-62.5-25 mcg blister with device 1 inh IH DAILY Qty: 28 RF: 11 Daliresp 500 mcg tablet 500 mcg PO DAILY Qty: 90 RF: 3 sertraline 100 mg tablet 100 mg PO DAILY Qty: 90 RF: 3 albuterol sulfate [Proventil HFA] 90 mcg/actuation HFA aerosol inhaler 2 puff IH Q6H PRN (Reason: shortness of breath or wheezing) Qty: 6.7 RF: 3 clonazepam 1 mg tablet 1 mg PO BID PRN (Reason: anxiety) Qty: 30 RF: 0 Salonpas 1 EACH adhesive patch,medicated 1 ea Topical .DAILY X 12 HOURS RF: 0 acetaminophen 500 mg tablet 1,000 mg PO Q8H PRN (Reason: pain) Qty: 90 RF: 3 Narcan 4 mg/actuation spray,non-aerosol 1 spray KELL Q2-3M PRN (Reason: opioid overdose) Qty: 2 RF: 0 cholecalciferol (vitamin D3) [Vitamin D3] 2,000 unit Tablet 3,000 unit PO DAILY RF: 0 calcitonin (salmon) 200 unit/actuation [place],Non-Aerosol 1 spray intranasal DAILY RF: 0 pantoprazole 40 mg Tablet,Delayed Release (Dr/Ec) 40 mg PO DAILY@0730 Qty: 30 RF: 0 lidocaine [Lidoderm] 5 % Adhesive Patch,Medicated 2 patch topical QPM Qty: 30 RF: 0 budesonide-formoterol [Symbicort] 160-4.5 mcg/actuation Hfa Aerosol Inhaler 2 puff inhalation BID Qty: 10.2 RF: 0 guaifenesin [Mucinex] 600 MG tablet extended release 12hr 600 mg PO BID 7 Days Qty: 0 RF: 0 oxycodone 5 mg Tablet 5 mg PO Q4H PRNRF: 0 Discharge Instructions Instructions: Back Pain (ED) Additional Instructions: Urinalysis and x-ray are unremarkable. Continue taking medications as directed for discomfort. Gentle stretching as tolerated. Cool and/or warm compresses every 2 hours for 20 minutes. Please watch for new or worsening symptoms and return to the ER for any concerns. Please follow the instructions given to you by the care management team. I recommend contacting your primary care provider tomorrow for prompt outpatient reevaluation. Outpatient physical therapy may be indicated. Discharge Data Discharge Date/Time-TO BE ENTERED AT DEPARTURE: 06/17/19 15:59 Medical Decision Making 74-year-old female with a history of compression fracture, reinjuring yesterday after recent discharge from rehab facility on Tuesday presents for increasing discomfort and inability to care for herself at home. Clinically she appears well, nontoxic, appears comfortable. She is able to ambulate without difficulty. She is neurologically intact. Will obtain urinalysis to be sure this is not potential stone versus bowel nephritis. Will obtain x-ray of her lumbar spine. Patient comfortable with this plan. X-ray unremarkable for acute pathology, urinalysis does not reveal any signs of infection. Appears to have a history of mild hematuria. Discussed options with patient and family. We will have care management team come talk with patient and family regarding options and additional resources. There is no clear indication here in the ER today for emergent admission. Patient appears well, nontoxic as above. She already has muscle relaxer and pain medications p rescribed. Patient and family are comfortable going home in their current condition. Imaging Data Radiologic Study: Attestation: I personally reviewed and interpreted this imaging study as follows: Imaging: X-Ray My impression: L2 compression fracture, appears unchanged. No acute pathology Lab Data Lab results reviewed: Yes I reviewed the patient's lab results. Lab results narrative: Laboratory Tests Range/Units 06/17/19 14:30 Urine Color (Yellow) Yellow Urine Clarity (Clear) Clear Urine pH (5-8) 6.0 Ur Specific [place] (1.005-1.025) 1.020 Urine Protein (Negative) mg/dL Negative Urine Ketones (Negative) mg/dL Negative Urine Blood (Negative) Trace-lysed H Urine Nitrite (Negative) Negative Urine Bilirubin (Negative) Negative Urine Urobilinogen (Up TO 0.2) EU/dL 0.2 Ur Leukocyte Esterase (Negative) Negative Urine RBC (0-2) HPF 5-10 H Urine WBC (0-5) HPF 0-2 Ur Epithelial Cells (Negative) HPF Few Urine Crystals (Negative) HPF Negative Urine Bacteria (Negative) HPF Negative Urine Casts (Negative) LPF Negative Urine Mucus (Negative) Negative Ur Culture Indicated? No Urine Glucose (Negative) mg/dL Negative HPI General Mode of arrival: ambulatory . Date/Time Provider Initiated Documentation: 06/17/19 13:57 . Limitations to Documentation: no limitations . Information obtained by: patient . HPI Narrative: This is a 74-year-old female with a history of COPD, T12 compression fracture, chronic back pain anxiety, presenting to the ER today for exacerbation of her chronic back pain. She was recently at the [facility] for back pain rehab, discharged on Tuesday. Discharged with pain medication and muscle relaxers. She has not filled those medications. She subsequently yesterday was bending over and when she stood up someone had opened the door behind her so she accidentally struck the door with her back. Reports increased pain of her chronic back pain, lumbar area. Denies any other injury. Denies radiation of pain. Denies numbness, tingling, weakness. Patient reports that she took an oxycodone last night but no pain medication today. Her home health nurse thought she come to the ER for evaluation. Related Data Home Medications Medication Instructions Recorded Confirmed Salonpas 1 ea TOPICAL .DAILY X 12 HOURS 11/10/16 06/17/19 fluticasone fur. 100 mcg-umeclid 1 inh IH DAILY #28 each 08/04/18 06/17/19 62.5 mcg-vilant 25 mcg inhalat.powder Oxygen #1 each 12/12/18 04/10/19 albuterol sulfate 90 mcg/actuation 2 puff IH Q6H PRN #6.7 gm 02/07/19 06/17/19 aerosol inhaler roflumilast 500 mcg tablet 500 mcg PO DAILY #90 tab-cap 02/07/19 06/17/19 sertraline 100 mg tablet 100 mg PO DAILY #90 tab-cap 02/07/19 06/17/19 Narcan 1 spray KELL Q2-3M PRN #2 each 04/18/19 06/17/19 acetaminophen 1,000 mg PO Q8H PRN #90 tab 04/18/19 06/17/19 calcitonin (salmon) 1 spray INTRANASAL DAILY 05/10/19 06/17/19 cholecalciferol (vitamin D3) 3,000 unit PO DAILY 05/10/19 06/17/19 [Vitamin D3] budesonide-formoterol [Symbicort] 2 puff INHALATION BID #10.2 gm 05/14/19 06/17/19 guaifenesin [Mucinex] 600 mg PO BID 7 Days #0 tab 05/14/19 06/17/19 lidocaine [Lidoderm] 2 patch TOPICAL QPM #30 each 05/14/19 06/17/19 pantoprazole 40 mg PO DAILY@0730 #30 tab 05/14/19 06/17/19 clonazepam 1 mg tablet 1 mg PO BID PRN #30 tab 06/15/19 06/17/19 oxycodone 5 mg PO Q4H PRN 06/17/19 06/17/19 Previous Rx's Medication Instructions Recorded fluticasone fur. 100 mcg-umeclid 1 inh IH DAILY #28 each 08/04/18 62.5 mcg-vilant 25 mcg inhalat.powder albuterol sulfate 90 mcg/actuation 2 puff IH Q6H PRN #6.7 gm 02/07/19 aerosol inhaler roflumilast 500 mcg tablet 500 mcg PO DAILY #90 tab-cap 02/07/19 sertraline 100 mg tablet 100 mg PO DAILY #90 tab-cap 02/07/19 Narcan 1 spray KELL Q2-3M PRN #2 each 04/18/19 acetaminophen 1,000 mg PO Q8H PRN #90 tab 04/18/19 budesonide-formoterol [Symbicort] 2 puff INHALATION BID #10.2 gm 05/14/19 guaifenesin [Mucinex] 600 mg PO BID 7 Days #0 tab 05/14/19 lidocaine [Lidoderm] 2 patch TOPICAL QPM #30 each 05/14/19 pantoprazole 40 mg PO DAILY@0730 #30 tab 05/14/19 clonazepam 1 mg tablet 1 mg PO BID PRN #30 tab 06/15/19 Allergies Allergy/AdvReac Type Severity Reaction Status Date / Time No Known Allergies Allergy Unverified 05/10/19 08:56 General Stated Complaint: Nk/Back Pain MCKAYLA: 3 Review of Systems Constitutional Constitutional: Denies fever(s) and Denies weakness Cardiovascular Cardiovascular: Denies chest pain and Denies dyspnea Respiratory Respiratory: Denies cough and Denies dyspnea Gastrointestinal Gastrointestinal: Denies abdominal pain, Denies nausea and Denies vomiting Genitourinary Genitourinary: Denies dysuria Musculoskeletal Musculoskeletal: Reports back pain, Denies numbness and Denies tingling Integumentary/Breasts Skin/Breast: Denies rash Neurologic Neurologic: Denies numbness, Denies tingling and Denies weakness [facility] Medical History Anxiety (Chronic) Cervical neck pain with evidence of disc disease (Chronic 06/22/13) Chronic obstructive pulmonary disease (Chronic) Chronic pain syndrome (Chronic 12/15/16) CONTROLLED SUBSTANCE AGREEMENT 10/03/18 History of tobacco abuse (Chronic) Irritable bowel syndrome with diarrhea (Chronic) LLL pneumonia (Acute ~03/30/18) Surgical History Appendectomy CHEST TUBE Extraction of cataract 06/05/15; LEFT EYE; DR. ARAUZ H/O section (Chronic) Hx of hysterectomy (Chronic) LAMINECTOMY CERVICAL SPINE Right femoral fracture (Resolved 05/09/17) ORIF DOS: 05/10/17 Dr. Bob Social History Smoking/Tobacco Use Status: Former Tobacco Use Quit Date: 09/16/13 Pack-years: 50 Alcohol Intake: former Year quit: 1979 Drug use: Never Substance use type: does not use Other: living along; missing her family; lonely Do you feel safe at home: Yes Do you feel safe in your relationship?: No Additional Social history: 16 years ago. Originally from [place], moved here to be near son and grand children. On disability due to chronic back pain. 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 Approximate 75 pack year history of tobacco. No alcohol or illicit drug use endorsed. Exam Const General: cooperative, healthy appearing, comfortable and no acute distress Orientation: alert and awake HENMT Head: normal to inspection, normocephalic and atraumatic Mouth: moist mucous membranes Eyes Conjunctivae: conjunctivae normal Neck Neck: normal visual inspection, trachea midline and supple Resp Effort & Inspection: normal respiratory effort and able to speak in complete sentences Auscultation: clear to auscultation bilaterally Cardio Rate: regular rate Rhythm: regular rhythm GI Inspection: normal to inspection Palpation: soft, not firm, no guarding and nontender Auscultation: normal bowel sounds Back/Spine/Pelvis Back: no CVA tenderness Thoracic/Lumbar Spine: paraspinal tenderness (Diffuse lumbar region), No thoraco-lumbar spasm, No thoracic spinal tenderness and lumbar spinal tenderness (Diffuse mild) Skin General skin exam: no rashes or lesions noted Neuro General: alert, awake, moves all extremities and no focal motor deficits Gait: normal gait Motor: muscle tone normal throughout and strength 5/5 throughout Sensory Exam: no sensory deficits noted Psych Appearance: grossly normal Mental Status: mental status grossly normal Course Vital Signs Vital signs: Vital Signs Temperature 36.6 C 06/17/19 13:52 Pulse 102 H 06/17/19 13:52 Respiratory Rate 20 06/17/19 13:52 Blood Pressure 115/62 06/17/19 13:52 Pulse Oximetry 90 L 06/17/19 13:52 Temperature 36.6 C 06/17/19 13:52 Temperature Source Temporal Artery Scan 06/17/19 13:52 Pulse 102 H 06/17/19 13:52 Respiratory Rate 20 06/17/19 13:52 Respiratory Effort 06/17/19 14:04 Blood Pressure 115/62 06/17/19 13:52 Blood Pressure Position Supine 06/17/19 13:52 Pulse Oximetry 90 L 06/17/19 13:52 Oxygen Delivery Method Nasal Cannula 06/17/19 13:52 Oxygen Flow Rate 1.5 06/17/19 13:52 Pain Level 9 06/17/19 14:16 Lab/Test Results Lab/Test Results: Laboratory Tests Range/Units 06/17/19 14:30 Urine Color (Yellow) Yellow Urine Clarity (Clear) Clear Urine pH (5-8) 6.0 Ur Specific [place] (1.005-1.025) 1.020 Urine Protein (Negative) mg/dL Negative Urine Ketones (Negative) mg/dL Negative Urine Blood (Negative) Trace-lysed H Urine Nitrite (Negative) Negative Urine Bilirubin (Negative) Negative Urine Urobilinogen (Up TO 0.2) EU/dL 0.2 Ur Leukocyte Esterase (Negative) Negative Urine RBC (0-2) HPF 0-2 Urine WBC (0-5) HPF 5-10 Ur Epithelial Cells (Negative) HPF Few Urine Crystals (Negative) HPF Negative Urine Bacteria (Negative) HPF Negative Urine Casts (Negative) LPF Negative Urine Mucus (Negative) Negative Ur Culture Indicated? No Urine Glucose (Negative) mg/dL Negative
--- NOTE | 2019-06-17 16:00 | DI.VRAD_ITS ---
PROCEDURE INFORMATION: Exam: XR Lumbosacral Spine, 4 or 5 Views Exam date and time: 06/17/2019 2:41 PM Age: 74 years old Clinical indication: Low back pain; Patient HX: Walked into a door TECHNIQUE: Imaging protocol: XR of the lumbosacral spine, 4 or 5 views. COMPARISON: CT LUMBAR SPINE SI JOINTS WO 04/15/2019 6:01 PM FINDINGS: Vertebrae: There is similar mild height loss of the L2 and T12 vertebral bodies. There is also mild biconcave height loss of the T11 and T10 vertebral bodies, not clearly acute. Vertebral body heights are otherwise intact. Alignment is maintained. The pedicles appear intact. No pars defect is identified. No acute fracture is identified. There is mild multilevel facet arthrosis, disc space narrowing and marginal osteophyte formation. Vasculature: Atherosclerotic vascular calcifications are noted. Soft tissues: Grossly unremarkable. Other findings: The bones appear osteopenic. IMPRESSION: 1. Apparent osteopenia with multilevel vertebral body height loss as described, without clear acute fracture. 2. Mild degenerative disk disease which could be better evaluated by means of MRI as clinically indicated. Dictated and Authenticated by: Ross Hankins MD. Ordering:RANDOLPH Choi MD
[2019-06-18 06:15] LABS: WBC 0-2 HPF (0-5)
== END 2019-06-17 15:59 | disposition home or self-care (01) ==
PROVIDERS: Emergency Provider Physician Assistant; PCP Family Medicine
DX: M54.5 Low back pain (principal); G89.29 Other chronic pain; J44.9 Chronic obstructive pulmonary disease, unspecified
CPT/HCPCS: 99283; 72110; 81003; 81015

== ENCOUNTER 2019-08-03 08:42 | Outpatient (CLI) | payer MEDICARE, OTHER, MEDICAID, SELFPAY ==
[2019-08-06 09:02] LABS: COVID-19 RT-PCR Result Negative (Negative)
== END 2019-08-03 09:02 ==
PROVIDERS: PCP Family Medicine; Visit Provider Family Medicine
DX: R50.9 Fever, unspecified (principal); Z11.59 Encounter for screening for other viral diseases
CPT/HCPCS: U0003

== ENCOUNTER 2020-08-26 02:26 | Outpatient (CLI) | payer OTHER, MEDICAID, SELFPAY ==
--- NOTE | 2020-08-26 12:16 | DI.RAD_ITS ---
Exam(s) XR LUMBAR SPINE COMPLETE EXAM: XR LUMBAR SPINE COMPLETE CLINICAL HISTORY: low back pain,M54.9 TECHNIQUE: COMPARISON: CR,XR XR LUMBAR SPINE COMPLETE from 06/17/2019 FINDINGS: Seven views were obtained. There is an old vertebral compression fracture of T12 with mild loss of h eight anteriorly, no change from June 2019. The intervertebral disc spaces are fairly well maintain ed throughout the lumbar region. There are prominent hypertrophic changes of the vertebral endplates and facet joints. There is no gross spondylolysis or spondylolisthesis. No acute fracture identifi ed. IMPRESSION: Degenerative changes of the lumbar spine, old T12 mild anterior compression fracture. RADIATION DOSE DELIVERED: Total DLP
--- NOTE | 2020-08-26 12:16 | DI.RAD_ITS ---
Exam(s) XR CERVICAL SPINE COMP 4-5V EXAM: XR CERVICAL SPINE COMP 4-5V CLINICAL HISTORY: neck and shoulder pain,M54.2 TECHNIQUE: COMPARISON: CT CT THORACIC SPINE WO from 04/17/2019 CR XR THORACIC SPINE COMPLETE from 05/03/2019 FINDINGS: Seven views were obtained. There is a mildly exaggerated cervical lordosis anterior spondylolisthesi s C4 on C5 estimated at 3-4 millimeters. There is mild loss of disc space height at C6-7. Otherwise intervertebral disc spaces are fairly well maintained. There are prominent hypertrophic degenerativ e changes of the facet joints and vertebral endplates throughout the cervical region. No gross fract ure or dislocation. IMPRESSION: Degenerative changes of the cervical spine as described above. RADIATION DOSE DELIVERED: Total DLP
== END 2020-08-26 02:46 ==
PROVIDERS: PCP Family Medicine; Visit Provider Family Medicine
DX: M54.5 Low back pain (principal); M47.816 Spondylosis without myelopathy or radiculopathy, lumbar region; M54.2 Cervicalgia; M25.511 Pain in right shoulder; M50.323 Other cervical disc degeneration at C6-C7 level; M43.12 Spondylolisthesis, cervical region; M47.812 Spondylosis without myelopathy or radiculopathy, cervical region; M25.512 Pain in left shoulder
CPT/HCPCS: 72050; 72110

== ENCOUNTER 2021-04-02 19:37 | Outpatient (REF) | payer MEDICARE, MEDICAID, SELFPAY ==
[2021-04-03 15:47] LABS: COVID-19 RT-PCR UVMMC Result Negative (Negative)
== END 2021-04-02 19:38 | disposition home or self-care (01) ==
LOC: LBN 19:37
PROVIDERS: PCP Family Medicine; Visit Provider Emergency Medicine
DX: Z20.822 Contact with and (suspected) exposure to COVID-19 (principal); R05.8 Other specified cough; R06.02 Shortness of breath; R50.9 Fever, unspecified
CPT/HCPCS: U0003; U0005

== ENCOUNTER 2021-08-13 11:50 | Outpatient (CLI) | payer MEDICARE, MEDICAID, SELFPAY ==
[2021-08-13 12:03] VITALS: BP 99/63; PULSE 91; RESP 20; TEMP 36.7; O2SAT 92
--- NOTE | 2021-08-13 12:44 | PDOC.PAIN_ITS ---
Pain Clinic Procedure Note Procedure Note Procedure Note: Lumbar/Sacral Medial Branch Blocks Laney Stephens has been referred to the [facility] for lumbar/sacral medial branch blocks. COMMENTS: Her pre-procedure pain VAS was 10/10. Dx: Lumbosacral spondylosis without myelopathy Patient was interviewed and the medical record reviewed. There were no medical, pharmacologic, radiographic or other structural contraindications to attempting fluoroscopically guided local anesthetic lumbar/sacral medial branch blocks. Risks and expected side effects as well as potential benefit of the procedure were reviewed and voiced concerns addressed. The printed consent form was signed and witnessed. Standard time-out procedure was performed. Patient was placed in the prone position on the fluoroscopy table and automated blood pressure cuff and pulse oximeter applied. The skin entry points for approaching the anatomic target points of the segmental medial branches of the right L2-L5DR were identified with anfluoroscopy and marked. Following thorough Chlorhexadine preparation of the skin and draping and 1% lidocaine infiltration of the skin entry points and subcutaneous tissues, a 25 gauge 3.5 spinal needle was placed under fluoroscopic guidance down on to the target point for each respective segmental medial branch.Position was confirmed in A/P, oblique and lateral views with 0.25ml of omnipaque 240. At this point I injected 0.5ml of 0.5% Bupivacaine at each segmental sensory nerve. Vital signs were stable throughout the procedure and were as recorded in the docflowsheet by the nursing staff. Follow up plans and appointments were discussed and was instructed to keep careful note of how the usual pain was modified by these injections. Specifically was asked to keep a pain diary for the next 24 hours using a numeric pain scale of 0-10 and report these results at the follow-up visit. Post procedure instruction was given as documented in the nursing documentation and having met discharge criteria. Patient was discharged from the [facility]. Based on the medial branches blocked today, if the patient has adequate relief and we are able to proceed to radiofrequency ablation, the treatment should result in the denervation of the right L3-L4, L4-L5, and L5-S1 FACET JOINTS. We would expect to denervate a total of 4 facets during the radiofrequency ablation. COMMENTS: Post-procedure pain VAS = 0/10. Orlando Manzanares DO, MPH [facility]-Pain Management [facility] CC: Ralph Rahman MD
--- NOTE | 2021-08-13 12:46 | DI.RAD_ITS ---
Exam(s) XR PAIN CLINIC LUMBAR SP 2V EXAM: XR PAIN CLINIC LUMBAR SP 2V CLINICAL HISTORY: Dx: Lumbar Spondylosis TECHNIQUE: 2D and realtime digital imaging was performed. COMPARISON: No exams were available for comparison FINDINGS: C-arm fluoroscopy was utilized by Dr. Manzanares during reported lumbar medial branch block, hard copy show needle placement at what appear to be the L2-3, L3-4, L4-5, and L5-S1 levels on the right. IMPRESSION: RADIATION DOSE DELIVERED: ashley Ibrahim=6.09 mGy
[2021-08-13] MEDS: Bupivacaine 0.5% Pres-Free 10 ML VIAL IJ (13:01)
[2021-08-13 13:02] VITALS: BP 97/57; PULSE 77; RESP 12; O2SAT 92
[2021-08-13] MEDS: Omnipaque 240 MG/ML 50 ML BTL IJ (13:02)
== END 2021-08-13 11:51 | disposition home or self-care (01) ==
LOC: PC 11:50
PROVIDERS: PCP Family Medicine; Visit Provider Preventive Medicine Occupational Medicine
DX: M47.817 Spondylosis without myelopathy or radiculopathy, lumbosacral region (principal)
CPT/HCPCS: 64493; 64494; 64495; 72100; Q9967

== ENCOUNTER 2022-01-21 06:24 | Inpatient (IN) | payer MEDICARE, MEDICAID, SELFPAY ==
[2022-01-21] VITALS (15 sets, daily range): BP systolic 92–136; BP diastolic 53–71; PULSE 81–102; RESP 2–24; TEMP 36.7–37.4; O2SAT 85–99
--- NOTE | 2022-01-21 06:30 | RT.EKG_ITS ---
APPROVED REPORT Exam: Resting ECG Reason for Exam: painful/difficulty breathing Patient Location: E HR:100 bpm ECG Measurements Heart Rate 100 AXIS CA 158 P 82 QRSd 73 QRS 53 QT 340 T 58 QTc 437 Conclusion Sinus tachycardia...rate> 99 Probable left atrial enlargement...P >50mS, <-0.10mV V1 subtle st dep laterally
--- NOTE | 2022-01-21 06:45 | DI.RAD_ITS ---
Exam(s) XR PORTABLE CHEST AP EXAM: XR PORTABLE CHEST AP CLINICAL HISTORY: pui, cough TECHNIQUE: COMPARISON: CR XR CHEST 2V PA LATERAL from 05/10/2019 FINDINGS: Portable upright film at 0750 hours. Cardiac size is within normal limits. 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 No acute consolidation, no interval change in appearance comparison with p rior examination of April 2019. IMPRESSION: COPD and scarring, no evidence of acute process. RADIATION DOSE DELIVERED: Total DLP
[2022-01-21 06:56] LABS: Abs Immature Grans 0.03 10^3/uL (0.0-0.06); Absolute Basophil Count 0.02 10^3/uL (0.0-0.2); Absolute Eosinophil Count 0.05 10^3/uL (0.0-0.7); Absolute Lymphocyte Count 0.56 10^3/uL (1.2-3.4); Absolute Monocyte Count 0.48 10^3/uL (0.1-0.8); Absolute Neutrophil Count 8.09 10^3/uL (1.2-6.7); Basophils % 0.2; Eosinophils % 0.5; HCT 48.8 % (36.0-46.0); HGB 15.6 g/dL (11.2-15.7); Immature Grans % 0.3; Lactate 0.6 mmol/L (0.6-1.4); Lymphocytes % 6.1; MCH 29.4 pg (27.0-33.0); MCV 92 fL (80-95); MPV 9.3 fL (8.0-11.0); Monocytes % 5.2; Neutrophils % 87.7; Platelet Count 167 10^3/uL (130-400); RDW 12.8 % (11.7-14.6); RDW-SD 43.4 fL; WBC 9.23 10^3/uL (4.4-10.8)
--- NOTE | 2022-01-21 07:03 | ED.GENADUL_ITS ---
Discharge Plan Disposition Patient Disposition: [facility] INPATIENT Condition: Serious Discharge Details Clinical Impression: COPD with acute exacerbation, Acute bronchitis Admit Date/Time: 01/23/22 08:21 Admit Provider: Jimbo Reyes Attending Provider: Jimbo Reyes Primary Care Provider: Ralph Rahman ED Provider: Tnaner Nieves Discharge Data Discharge Date/Time-TO BE ENTERED AT DEPARTURE: 01/21/22 10:19 Medical Decision Making 7:00?76-year-old female with history of COPD, recently completed 5-day course of Ceftin for COPD exacerbation, now with worsening cough and associated shortness of breath and pleuritic chest discomfort. Patient is hypoxic on room air, improved to mid 90s on nasal cannula. She is tachycardic and normotensive. Concern for pneumonia. Will obtain chest x-ray, labs including stat COVID, lactate and blood cultures. Concern for acute exacerbation of COPD. I will give Solu-Medrol 60 mg IV as well as DuoNeb treatments. EKG was reviewed and interpreted by me: Sinus tachycardia 100 bpm, normal axis, subtle ST depression noted laterally V5 V6, no STEMI. Will check troponin. -- Chest x-ray was interpreted by radiology: COPD and scarring, no evidence of acute process. Plan to hospitalize for further treatment of acute COPD exacerbation and acute bronchitis. Antibiotics have been initiated. Lab Data Lab results reviewed: Yes I reviewed the patient's lab results. HPI General Mode of arrival: ambulatory . Date/Time Provider Initiated Documentation: 01/21/22 06:45 . Limitations to Documentation: no limitations . Information obtained by: patient . HPI Narrative: 76-year-old female with history of COPD presents with chief complaint of cough. Patient notes terrible cough over the past couple days. She started to have cough mid-December and had a televisit on 01/06/2022 with PCP who diagnosed COPD exacerbation and started her on a course of Ceftin x5 days. Patient notes symptoms were improving on antibiotic and since completion have not worsened. She has associated shortness of breath and pleuritic chest discomfort. She uses oxygen intermittently at home and has been using it more recently. Related Data Home Medications Medication Instructions Recorded Confirmed camphor-methyl salicylate-menthol 1 ea topical .DAILY X 12 HOURS 11/10/16 01/21/22 topical patch (Salonpas topical patch) Oxygen #1 ea 12/12/18 01/21/22 naloxone 4 mg/actuation nasal 1 spray intranasal Q2-3M PRN 04/18/19 01/21/22 spray (Narcan) opioid overdose #2 ea cholecalciferol (vitamin D3) 50 3,000 unit PO DAILY 05/10/19 01/21/22 mcg (2,000 unit) tablet (Vitamin D3) lidocaine 5 % topical patch 2 patch topical QPM #30 ea 05/14/19 01/21/22 (Lidoderm) albuterol sulfate 90 mcg/actuation 2 puff inhalation Q6H PRN 04/15/20 01/21/22 aerosol inhaler (Proventil HFA) shortness of breath or wheezing #6.7 grams amitriptyline 10 mg tablet 10 mg PO BID #180 tabs 03/19/21 01/21/22 roflumilast 500 mcg tablet 500 mcg PO DAILY #90 tab-caps 06/02/21 01/21/22 (Daliresp) acetylcysteine 600 mg capsule See Rx Instructions .Route 06/04/21 01/21/22 .COMPLEX #90 caps fluticasone fur. 100 mcg-umeclid 1 inh inhalation DAILY #28 ea 07/22/21 01/21/22 62.5 mcg-vilant 25 mcg inhalat.powder (Trelegy Ellipta) sertraline 100 mg tablet 100 mg PO DAILY #90 tab-caps 08/14/21 01/21/22 vit C 250 mg-vit E 90 mg-zinc 40 2 cap PO DAILY 08/21/21 01/21/22 mg-copper 1 [id number] capsule (PreserVision AREDS-2) acetaminophen 500 mg tablet 1,000 mg PO Q8H PRN pain #90 tabs 09/15/21 01/21/22 clonazepam 1 mg tablet 1 mg PO BID PRN anxiety #60 tabs 09/15/21 01/21/22 celecoxib 200 mg capsule 200 mg PO BID #60 caps 10/20/21 01/21/22 omeprazole 40 mg capsule,delayed 40 mg PO DAILY #30 caps 10/20/21 01/21/22 release cefuroxime axetil 500 mg tablet 500 mg PO BID copd exacerbation 01/06/22 01/21/22 #10 tabs Previous Rx's Medication Instructions Recorded naloxone 4 mg/actuation nasal 1 spray intranasal Q2-3M PRN 04/18/19 spray (Narcan) opioid overdose #2 ea lidocaine 5 % topical patch 2 patch topical QPM #30 ea 05/14/19 (Lidoderm) albuterol sulfate 90 mcg/actuation 2 puff inhalation Q6H PRN 04/15/20 aerosol inhaler (Proventil HFA) shortness of breath or wheezing #6.7 grams amitriptyline 10 mg tablet 10 mg PO BID #180 tabs 03/19/21 roflumilast 500 mcg tablet 500 mcg PO DAILY #90 tab-caps 06/02/21 (Daliresp) acetylcysteine 600 mg capsule See Rx Instructions .Route 06/04/21 .COMPLEX #90 caps fluticasone fur. 100 mcg-umeclid 1 inh inhalation DAILY #28 ea 07/22/21 62.5 mcg-vilant 25 mcg inhalat.powder (Trelegy Ellipta) sertraline 100 mg tablet 100 mg PO DAILY #90 tab-caps 08/14/21 acetaminophen 500 mg tablet 1,000 mg PO Q8H PRN pain #90 tabs 09/15/21 clonazepam 1 mg tablet 1 mg PO BID PRN anxiety #60 tabs 09/15/21 celecoxib 200 mg capsule 200 mg PO BID #60 caps 10/20/21 omeprazole 40 mg capsule,delayed 40 mg PO DAILY #30 caps 10/20/21 release cefuroxime axetil 500 mg tablet 500 mg PO BID copd exacerbation 01/06/22 #10 tabs Allergies Allergy/AdvReac Type Severity Reaction Status Date / Time No Known Allergies Allergy Verified 01/21/22 06:42 General Stated Complaint: SOB MCKAYLA: 3 Review of Systems All systems reviewed & are unremarkable except as noted in HPI and below Constitutional Constitutional: Denies fever(s) Cardiovascular Cardiovascular: Reports dyspnea Respiratory Respiratory: Reports as per HPI, Reports cough, Reports pain with cough and Reports dyspnea PFSH All Active Problems (Updated 01/24/22 @ 19:25 by Tanner Nieves MD) COPD with acute exacerbation (Acute) Acute bronchitis (Acute) Odynophagia (Acute) Dysphagia (Acute) GERD (gastroesophageal reflux disease) (Chronic) Chronic obstructive pulmonary disease (Chronic) Chronic pain syndrome (Acute 12/15/16) CONTROLLED SUBSTANCE AGREEMENT 10/03/18 Lumbosacral spondylosis without myelopathy (Acute) Fibromyalgia (Acute) Fall (Acute) Low back pain (Acute) Fever (Acute) Discharge planning issues (Acute) Acute exacerbation of chronic obstructive pulmonary disease (COPD) (Acute) T12 compression fracture (Acute) Ongoing leg pain (Acute) continue nSaid prn tramadol see surgeon next week consider topical analgesic on surrounding skin Hemoptysis (Acute) History of cataract removal with insertion of prosthetic lens (Acute 06/05/15) History of chest tube placement (Acute) Status post appendectomy (Acute) Status post laminectomy (Acute) Pain from implanted hardware (Chronic 10/30/18) S/P Hardware removal Bacterial pneumonia (Acute 11/23/13) Chronic anxiety (Chronic 06/22/13) Chronic emphysema syndrome (Chronic) Chronic pain in right shoulder (Chronic 11/20/13) Moderate protein malnutrition (Chronic 11/20/13) Contusion of right knee, initial encounter (Acute) Neck pain (Acute) Irritable bowel syndrome with diarrhea (Chronic) Cervical neck pain with evidence of disc disease (Chronic 06/22/13) History of tobacco abuse (Chronic) Anxiety (Chronic) LLL pneumonia (Acute ~03/30/18) Medical History (Updated 01/24/22 @ 19:25 by Tanner Nieves MD) DNI (do not intubate) DNR (do not resuscitate) POLST (Physician Orders for Life-Sustaining Treatment) Surgical History Appendectomy CHEST TUBE Extraction of cataract 06/05/15; LEFT EYE; DR. ARAUZ H/O section Hx of hysterectomy LAMINECTOMY CERVICAL SPINE Family History Mother , at age 89, cardiac problems No problems noted. Father , at 81 Cancer Throat cancer Brother , at 71 Colon cancer Sister Diabetes DM2 Sister Diabetes DM2 Son No problems noted. Social History Smoking/Tobacco Use Status: Former Tobacco Use Quit Date: 09/16/13 Pack-years: 50 Smoking risk assessment performed?: Yes Alcohol Intake: former Year quit: 1979 Drug use: Never Substance use type: does not use Household members: none Housing: apartment Other: living along; missing her family; lonely Do you feel safe at home: Yes Do you feel safe in your relationship?: No Additional Social history: 16 years ago. Originally from [place], moved here to be near son and grand children. On disability due to chronic back pain. 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 Approximate 75 pack year history of tobacco. No alcohol or illicit drug use endorsed. Exam Const General: cooperative HENMT Mouth: moist mucous membranes Eyes Conjunctivae: normal conjunctivae Sclera: normal sclerae Neck Neck: trachea midline and supple Resp Effort & Inspection: labored and tachypneic Auscultation: diminished lung sounds bilaterally throughout, no rales, no rhonchi and no wheezes Cardio Rate: tachycardic Rhythm: regular rhythm GI Palpation: soft, not firm, no guarding, no masses, not rigid and nontender Skin General skin exam: no rashes or lesions noted Neuro General: patient alert, patient awake, patient oriented x3 and tone normal Extrem General: no calf tenderness and no edema Psych Appearance: grossly normal Mental Status: mental status grossly normal Speech and Movement: speech and movement normal Course Vital Signs Vital signs: Vital Signs Temperature 37.2 C 01/21/22 06:36 Pulse 102 H 01/21/22 06:36 Respiratory Rate 19 01/21/22 06:36 Blood Pressure 136/64 01/21/22 06:36 Pulse Oximetry 85 L 01/21/22 06:36 Temperature 37.2 C 01/21/22 06:36 Temperature Source Temporal Artery Scan 01/21/22 06:36 Pulse 102 H 01/21/22 06:36 Respiratory Rate 19 01/21/22 06:36 Respiratory Effort 01/21/22 06:36 Blood Pressure 136/64 01/21/22 06:36 Blood Pressure Position Sitting 01/21/22 06:36 Pulse Oximetry 85 L 01/21/22 06:36 Oxygen Delivery Method Room Air 01/21/22 06:36 Oxygen Flow Rate 0 01/21/22 06:36 Pain Level 10 01/21/22 06:36 Lab/Test Results Lab/Test Results: 01/21/22 06:47 Blood Blood Culture - Pending 01/21/22 06:47 Blood Blood Culture - Pending Laboratory Tests Range/Units 01/21/22 01/21/22 06:52 06:52 WBC (4.4-10.8) 10^3/uL 9.23 RBC (3.93-5.22) 10^6/uL 5.30 H Hgb (11.2-15.7) g/dL 15.6 Hct (36.0-46.0) % 48.8 H MCV (80-95) fL 92 MCH (27.0-33.0) pg 29.4 MCHC (32.0-36.0) % 32.0 RDW (11.7-14.6) % 12.8 Plt Count (130-400) 10^3/uL 167 MPV (8.0-11.0) fL 9.3 Immature Gran % 0.3 Neutrophils % 87.7 Lymphocytes % 6.1 Monocytes % 5.2 Eosinophils % 0.5 Basophils % 0.2 Nucleated RBC % (0.0-0.3) % 0.0 Absolute Neutrophils (1.2-6.7) 10^3/uL 8.09 H Absolute Lymphocytes (1.2-3.4) 10^3/uL 0.56 L Absolute Monocytes (0.1-0.8) 10^3/uL 0.48 Absolute Eosinophils (0.0-0.7) 10^3/uL 0.05 Absolute Basophils (0.0-0.2) 10^3/uL 0.02 VBG Lactate (0.6-1.4) mmol/L 0.6
[2022-01-21 07:12] LABS: Source Nasal/Nares
[2022-01-21 07:19] LABS: ALT 17 U/L (14-59); AST 13 U/L (15-37); Albumin 4.1 g/dL (3.4-5.0); Alkaline Phosphatase 103 U/L (46-116); Anion Gap 6.6 mmol/L (3-11); BUN 10 mg/dL (7-18); Bilirubin, Total 0.4 mg/dL (0.2-1.0); CO2 31.4 mmol/L (21.0-32.0); CREATININE 0.7 mg/dL (0.55-1.02); Calcium 9.5 mg/dL (8.5-10.1); Chloride 99 mmol/L (98-107); Estimated GFR 89.58 (mL/min/1.73m2); Glucose 124 mg/dL (74-106); Potassium 4.4 mmol/L (3.5-5.1); Sodium 137 mmol/L (136-145)
[2022-01-21 07:49] LABS: COVID-19 PCR Negative (Negative)
--- NOTE | 2022-01-21 08:23 | W.PM.HP.N ---
Date of service: 01/21/22 Time of Service: 08:23 Assessment and Plan Assessment and plan (1) Acute exacerbation of chronic obstructive pulmonary disease (COPD): Status: Acute Assessment and plan: oxygen supplementation, antibiotics (Rocephin, azithromycin), bronchodilators, methylprednisolone, vibrapep/acapella, incentive spirometer (2) Acute purulent bronchitis: Status: Acute (3) Chronic pain syndrome: Status: Acute Assessment and plan: continue her home pain regimen History of Present Illness History of Present Illness Chief Complaint: short of breath, cough, hypoxia Narrative: 76 yr old female, former smoker (50 pack yr; quit 8 yrs ago), COPD (has home oxygen but uses prn particularly at night) who has had cough, dyspnea, pleuritic CP right sided, as well as her shoulders and hips, who was treated for COPD exacerbation/bronchitis w/ Ceftin x 5 days after a tele consult w/ her PCP, Dr. Rahman which occurred on 01/06/22. Patient stated symptomatic improvement in her cough after the first couple days of the Ceftin but over the past couple days has progressively gotten worse since Tuesday when her cough became more productive of purulent sputum of green mucous. She reportedly had fevers last week of 101 and low grade of 99.9 this week. No hemptysis. Evaluation in the ER included CXR which showed COPD and scarring but no infiltrates or effusions. Labs included CMP, CBC which was only remarkable for increase in her PMN on her CBC. She was empirically placed on Rocephin 2 gm and azithromycin 500 mg, solumedrol 60 mg IVP and DuoNeb treatments. Her oxygen saturation on room air was in the 80's and came up to the mid 90's on nasal cannula 3 lpm. She is admitted on observation status for treatment of COPD exacerbation w/ acute bronchitis. COVID-19 screening was negative. She has had her COVID vaccines including her boosters except for the latest bivalent vaccine for Omicron. Review of Systems All systems reviewed & are unremarkable except as noted in HPI and below PFSH All Active Problems GERD (gastroesophageal reflux disease) (Chronic) Chronic obstructive pulmonary disease (Chronic) Chronic pain syndrome (Acute 12/15/16) CONTROLLED SUBSTANCE AGREEMENT 10/03/18 Lumbosacral spondylosis without myelopathy (Acute) Fibromyalgia (Acute) Fall (Acute) Low back pain (Acute) Fever (Acute) Acute purulent bronchitis (Acute) Discharge planning issues (Acute) Acute exacerbation of chronic obstructive pulmonary disease (COPD) (Acute) T12 compression fracture (Acute) Ongoing leg pain (Acute) continue nSaid prn tramadol see surgeon next week consider topical analgesic on surrounding skin Hemoptysis (Acute) History of cataract removal with insertion of prosthetic lens (Acute 06/05/15) History of chest tube placement (Acute) Status post appendectomy (Acute) Status post laminectomy (Acute) Pain from implanted hardware (Chronic 10/30/18) S/P Hardware removal Bacterial pneumonia (Acute 11/23/13) Chronic anxiety (Chronic 06/22/13) Chronic emphysema syndrome (Chronic) Chronic pain in right shoulder (Chronic 11/20/13) Moderate protein malnutrition (Chronic 11/20/13) Contusion of right knee, initial encounter (Acute) Neck pain (Acute) Irritable bowel syndrome with diarrhea (Chronic) Cervical neck pain with evidence of disc disease (Chronic 06/22/13) History of tobacco abuse (Chronic) Anxiety (Chronic) LLL pneumonia (Acute ~03/30/18) Medical History DNI (do not intubate) DNR (do not resuscitate) POLST (Physician Orders for Life-Sustaining Treatment) Surgical History Appendectomy CHEST TUBE Extraction of cataract 06/05/15; LEFT EYE; DR. ARAUZ H/O section Hx of hysterectomy LAMINECTOMY CERVICAL SPINE Family History Mother , at age 89, cardiac problems No problems noted. Father , at 81 Cancer Throat cancer Brother , at 71 Colon cancer Sister Diabetes DM2 Sister Diabetes DM2 Son No problems noted. Social History Smoking/Tobacco Use Status: Former Tobacco Use Quit Date: 09/16/13 Pack-years: 50 Smoking risk assessment performed?: Yes Alcohol Intake: former Year quit: 1979 Drug use: Never Substance use type: does not use Household members: none Housing: apartment Other: living along; missing her family; lonely Do you feel safe at home: Yes Do you feel safe in your relationship?: No Additional Social history: 16 years ago. Originally from [place], moved here to be near son and grand children. On disability due to chronic back pain. 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 Approximate 75 pack year history of tobacco. No alcohol or illicit drug use endorsed. Meds Allergies and Home Medications Allergies Allergy/AdvReac Type Severity Reaction Status Date / Time No Known Allergies Allergy Verified 01/21/22 06:42 Home Medications Medication Instructions Recorded Confirmed Type camphor-methyl salicylate-menthol 1 ea topical .DAILY X 12 HOURS 11/10/16 01/21/22 History topical patch (Salonpas topical patch) Oxygen #1 ea 12/12/18 01/21/22 History naloxone 4 mg/actuation nasal 1 spray intranasal Q2-3M PRN 04/18/19 01/21/22 Rx spray (Narcan) opioid overdose #2 ea cholecalciferol (vitamin D3) 50 3,000 unit PO DAILY 05/10/19 01/21/22 History mcg (2,000 unit) tablet (Vitamin D3) lidocaine 5 % topical patch 2 patch topical QPM #30 ea 05/14/19 01/21/22 Rx (Lidoderm) albuterol sulfate 90 mcg/actuation 2 puff inhalation Q6H PRN 04/15/20 01/21/22 Rx aerosol inhaler (Proventil HFA) shortness of breath or wheezing #6.7 grams amitriptyline 10 mg tablet 10 mg PO BID #180 tabs 03/19/21 01/21/22 Rx roflumilast 500 mcg tablet 500 mcg PO DAILY #90 tab-caps 06/02/21 01/21/22 Rx (Daliresp) acetylcysteine 600 mg capsule See Rx Instructions .Route 06/04/21 01/21/22 Rx .COMPLEX #90 caps fluticasone fur. 100 mcg-umeclid 1 inh inhalation DAILY #28 ea 07/22/21 01/21/22 Rx 62.5 mcg-vilant 25 mcg inhalat.powder (Trelegy Ellipta) sertraline 100 mg tablet 100 mg PO DAILY #90 tab-caps 08/14/21 01/21/22 Rx vit C 250 mg-vit E 90 mg-zinc 40 2 cap PO DAILY 08/21/21 01/21/22 History mg-copper 1 [id number] capsule (PreserVision AREDS-2) acetaminophen 500 mg tablet 1,000 mg PO Q8H PRN pain #90 tabs 09/15/21 01/21/22 Rx clonazepam 1 mg tablet 1 mg PO BID PRN anxiety #60 tabs 09/15/21 01/21/22 Rx celecoxib 200 mg capsule 200 mg PO BID #60 caps 10/20/21 01/21/22 Rx omeprazole 40 mg capsule,delayed 40 mg PO DAILY #30 caps 10/20/21 01/21/22 Rx release cefuroxime axetil 500 mg tablet 500 mg PO BID copd exacerbation 01/06/22 01/21/22 Rx #10 tabs Exam Narrative Exam Narrative: Thin white female who is alert/oriented x 3, no acute respiratory distress, not using her accessory respiratory muscles HEENT: unrremarkable Neck: supple, no JVD, normal carotid pulses, no thyromegaly or adenopathy; no accessory resp. muscle use Lungs: initially when she presented to the ER she had diffusely diminished breath sounds and was tachypneic and in respiratory distress but after arrival to the floor she had improved and when she arrived to the med/surg floor her lungs had some scattered expiratory wheezes; now this evening at completion of her H&P her lungs are clear Heart: regular to slightly tachycardic, no murmur or rub Abdomen: soft, nontender, no distension or hepatosplenomegaly Legs: no edema or cyanosis Results Labs Result diagrams: 01/21/22 06:52 01/21/22 06:52 Labs: Laboratory Results - last 24 hr 01/21/22 01/21/22 01/21/22 06:52 06:52 06:52 WBC 9.23 RBC 5.30 H Hgb 15.6 Hct 48.8 H MCV 92 MCH 29.4 MCHC 32.0 RDW 12.8 Plt Count 167 MPV 9.3 Immature Gran % 0.3 Neutrophils % 87.7 Lymphocytes % 6.1 Monocytes % 5.2 Eosinophils % 0.5 Basophils % 0.2 Nucleated RBC % 0.0 Absolute Neutrophils 8.09 H Absolute Lymphocytes 0.56 L Absolute Monocytes 0.48 Absolute Eosinophils 0.05 Absolute Basophils 0.02 VBG Lactate 0.6 Sodium 137 Potassium 4.4 Chloride 99 Carbon Dioxide 31.4 Anion Gap 6.6 BUN 10 Creatinine 0.7 Est GFR (CKD-EPI 2020) 89.58 Glucose 124 H Calcium 9.5 Total Bilirubin 0.4 AST 13 L ALT 17 Alkaline Phosphatase 103 Total Protein 8.0 Albumin 4.1 COVID-19 Source SARS-CoV-2 (PCR) 01/21/22 06:56 WBC RBC Hgb Hct MCV MCH MCHC RDW Plt Count MPV Immature Gran % Neutrophils % Lymphocytes % Monocytes % Eosinophils % Basophils % Nucleated RBC % Absolute Neutrophils Absolute Lymphocytes Absolute Monocytes Absolute Eosinophils Absolute Basophils VBG Lactate Sodium Potassium Chloride Carbon Dioxide Anion Gap BUN Creatinine Est GFR (CKD-EPI 2020) Glucose Calcium Total Bilirubin AST ALT Alkaline Phosphatase Total Protein Albumin COVID-19 Source Nasal/Nares SARS-CoV-2 (PCR) Negative Last Vital Signs Temp 37.2 C 01/21/22 06:36 Pulse 102 H 01/21/22 06:36 Resp 19 01/21/22 06:36 BP 136/64 01/21/22 06:36 Pulse Ox 85 L 01/21/22 06:36
[2022-01-21] MEDS: Albuterol/Ipratropium 3 ML UPD VIAL UPD ×5 (08:35→20:05)
[2022-01-21] MEDS: cefTRIAXone 2 GM/50 ML BAG IVPB (08:56)
[2022-01-21] MEDS: methylPREDNISolone SUCC 125 MG VIAL 60 MG IVP ×3 (08:58→21:29)
[2022-01-21] MEDS: Celecoxib 200 MG CAP PO ×2 (10:27→20:06)
[2022-01-21] MEDS: Sertraline 100 MG TAB PO (10:27)
[2022-01-21] MEDS: AZITHROMYCIN 500 MG in Normal Saline 250 ML 250 MG IVPB (10:27)
[2022-01-21] MEDS: Amitriptyline 10 MG TAB PO ×2 (10:27→20:06)
[2022-01-21] MEDS: Acetylcysteine 600 MG CAP PO (11:32)
[2022-01-21] MEDS: Roflumilast 500 MCG TAB PO (11:32)
[2022-01-21] MEDS: Acetaminophen 325 MG TAB PO ×2 (11:32→20:06)
[2022-01-21] MEDS: Enoxaparin 40 MG/0.4 ML SYR SC (11:33)
[2022-01-21] MEDS: oxyCODONE 5 MG TAB PO ×2 (11:33→20:06)
[2022-01-21] MEDS: Budesonide/Formoterol 80/4.5 6.9 GM 60 PUFF INH IH ×2 (13:28→21:29)
[2022-01-21] MEDS: Tiotropium Bromide-Respimat 10 PUFF INH 2 PUFF IH (13:28)
[2022-01-21] MEDS: Normal Saline Flush 10 ML SYR IVP (14:08)
--- NOTE | 2022-01-21 14:52 | PHACLINREV_ITS ---
Pharmacy Admission Review - Admission Clinical Review No Known Allergies Allergy (Verified 01/21/22 06:42) Resuscitation Status Full Code Height 5 ft 7 in Weight 58.967 kg - Renal Dosing Renal Dosing: BUN 10 mg/dL (7-18) 01/21/22 06:52 Creatinine 0.7 mg/dL (0.55-1.02) 01/21/22 06:52 Medications needing adjustments: Reviewed List of meds needing interventions: eCrCl 44 ml/min - orders ok - Anticoagulation Anticoagulation: Hgb 15.6 g/dL (11.2-15.7) 01/21/22 06:52 Hct 48.8 % (36.0-46.0) H 01/21/22 06:52 Plt Count 167 10^3/uL (130-400) 01/21/22 06:52 Creatinine 0.7 mg/dL (0.55-1.02) 01/21/22 06:52 DVT Prophylaxis: Reviewed Medications: Enoxaparin - Opiate Usage Evaluate Pain Scale/Pains Meds: N/A - Relevant Labs Sodium 137 mmol/L (136-145) 01/21/22 06:52 Potassium 4.4 mmol/L (3.5-5.1) 01/21/22 06:52 Chloride 99 mmol/L (98-107) 01/21/22 06:52 Electrolytes, C-Reactive P, ESR: Reviewed - DM Control DM Control: Glucose 124 mg/dL (74-106) H 01/21/22 06:52 DM Control: N/A - Cardiac Review BP, HR, EF%: Reviewed List meds needing interventions: soft BPs (last reading ) - Qtc Review If Elevated, List meds needing intervention: 437 on admission - IV to PO Switch IV Medications: Reviewed - Home Meds Home Med List reviewed: Intervened Relevent Home Meds Not ordered & why?: updated - removed oxycodone, has not filled within the last year per [facility]; all ordered - Current meds Current Medication Order Review: Reviewed (symbicort + spiriva substituted for trelegy)
[2022-01-21] MEDS: clonazePAM 1 MG TAB PO ×2 (16:10→20:06)
[2022-01-21] MEDS: Diclofenac 1% Gel 100 GM TUBE TP ×2 (16:11→21:28)
[2022-01-21] MEDS: Melatonin 3 MG TAB 9 MG PO (21:29)
[2022-01-21 22:40] LABS: Legionella Ag Detection Urine Negative (Negative)
[2022-01-22] VITALS (15 sets, daily range): BP systolic 94–107; BP diastolic 58–66; PULSE 88–105; RESP 4–18; TEMP 36.5–37.2; O2SAT 91–97
[2022-01-22] MEDS: Albuterol/Ipratropium 3 ML UPD VIAL UPD ×5 (00:24→20:09)
[2022-01-22] MEDS: methylPREDNISolone SUCC 125 MG VIAL 60 MG IVP ×3 (06:02→21:30)
[2022-01-22] MEDS: Tiotropium Bromide-Respimat 10 PUFF INH 2 PUFF IH (07:59)
[2022-01-22] MEDS: Budesonide/Formoterol 80/4.5 6.9 GM 60 PUFF INH IH ×2 (07:59→20:10)
[2022-01-22] MEDS: Amitriptyline 10 MG TAB PO ×2 (09:28→20:10)
[2022-01-22] MEDS: Diclofenac 1% Gel 100 GM TUBE TP ×4 (09:28→20:10)
[2022-01-22] MEDS: Omeprazole 20 MG CAPCR 40 MG PO (09:28)
[2022-01-22] MEDS: Cholecalciferol (Vitamin D3) 1,000 UNIT TAB 3000 UNITS PO (09:28)
[2022-01-22] MEDS: Sertraline 100 MG TAB PO (09:28)
[2022-01-22] MEDS: Azithromycin 250 MG TAB PO (09:29)
[2022-01-22] MEDS: Celecoxib 200 MG CAP PO ×2 (09:29→20:10)
[2022-01-22] MEDS: cefTRIAXone 1 GM/50 ML BAG IVPB (09:29)
[2022-01-22] MEDS: Normal Saline Flush 10 ML SYR IVP ×3 (09:29→21:30)
[2022-01-22] MEDS: oxyCODONE 5 MG TAB PO ×2 (09:37→21:29)
[2022-01-22] MEDS: clonazePAM 1 MG TAB PO ×2 (09:37→21:29)
[2022-01-22] MEDS: Enoxaparin 40 MG/0.4 ML SYR SC (11:29)
--- NOTE | 2022-01-22 11:39 | W.PM.PROGNOT ---
Date of Service Date of service: 01/22/22 Time of Service: 11:39 Assessment and Plan Assessment and plan (1) Acute exacerbation of chronic obstructive pulmonary disease (COPD): Status: Acute Assessment and plan: oxygen supplementation, antibiotics (Rocephin, azithromycin), bronchodilators, methylprednisolone, vibrapep/acapella, incentive spirometer; add mucinex and Tessalon Perles, and prn cepacol lozenges. I will change her antibiotics to oral antibiotics today. (Augmentin and azithromycin) (2) Acute purulent bronchitis: Status: Acute Assessment and plan: as above (3) Chronic pain syndrome: Status: Acute Assessment and plan: continue her home pain regimen Subjective Subjective Interval history since last seen: Overall, patient feels less dyspnea, cough is non-productive. She had some sore throat this morning which felt better after coffee Exam Narrative Exam Narrative: Laney is sitting up in bed watching TV, no acute respiratory distress Oropharynx, slightly red but no exudate, dry mucous membranes Lungs: prolonged expiratory phase; no rhonchi or rales; no wheezing Heart: RRR Abdomen: soft, nontender Extremities: no cyanosis or edema Objective Last Vital Signs Temp 36.7 C 01/22/22 11:23 Pulse 92 H 01/22/22 11:23 Resp 18 01/22/22 11:23 BP 107/58 L 01/22/22 11:23 Pulse Ox 94 01/22/22 11:23 Laboratory Results - last 24 hr 01/21/22 14:05 Ur Strep pneumoniae Ag Cancelled
[2022-01-22] MEDS: Benzonatate 200 MG CAP PO ×2 (13:43→20:09)
--- NOTE | 2022-01-22 17:24 | INITIAL_ITS ---
- If Service Date Differs Date of service: 01/22/22 Time of Service: 17:24 Care Management Initial Assess REASON FOR HOSPITALIZATION:: Acute Exacerbation of COPD PAST MEDICAL HISTORY/PAST SURGICAL HISTORY:: All Active Problems . GERD (gastroesophageal reflux disease) (Chronic). Chronic obstructive pulmonary disease (Chronic). Chronic pain syndrome (Acute 12/15/16). CONTROLLED SUBSTANCE AGREEMENT 10/03/18. Lumbosacral spondylosis without myelopathy (Acute). Fibromyalgia (Acute). Fall (Acute). Low back pain (Acute). Fever (Acute). Acute purulent bronchitis (Acute). Discharge planning issues (Acute). Acute exacerbation of chronic obstructive pulmonary disease (COPD) (Acute). T12 compression fracture (Acute). Ongoing leg pain (Acute). continue nSaid. prn tramadol. see surgeon next harlan bassett. consider topical analgesic on surrounding skin. Hemoptysis (Acute). History of cataract removal with insertion of prosthetic lens (Acute 06/05/15). History of chest tube placement (Acute). Status post appendectomy (Acute). Status post laminectomy (Acute). Pain from implanted hardware (Chronic 10/30/18). S/P Hardware removal. Bacterial pneumonia (Acute 11/23/13). Chronic anxiety (Chronic 06/22/13). Chronic emphysema syndrome (Chronic). Chronic pain in right shoulder (Chronic 11/20/13). Moderate protein malnutrition (Chronic 11/20/13). Contusion of right knee, initial encounter (Acute). Neck pain (Acute). Irritable bowel syndrome with diarrhea (Chronic). Cervical neck pain with evidence of disc disease (Chronic 06/22/13). History of tobacco abuse (Chronic). Anxiety (Chronic). LLL pneumonia (Acute ~03/30/18). Medical History . DNI (do not intubate). DNR (do not resuscitate). POLST (Physician Orders for Life-Sust aining Treatment). Surgical History . Appendectomy. CHEST TUBE. Extraction of cataract. 06/05/15; LEFT EYE; DR. ARAUZ. H/O section. Hx of hysterectomy. LAMINECTOMY. CERVICAL SPINE PREVIOUS FUNCTIONAL STATUS/SOCIAL/FAMILY SUPPORTS:: Laney lives in [place] in an inlaw apartment in her son Stanley's home along with his Bree and 4 children ages 10, 8, 7 and 3. Her family, including the children, are very helpful and supportive. Laney uses 2L of nasal O2 at baseline which she receives from [facility] and uses a walker or furniture surfing to ambulate in her home. She no longer drives and rarely goes out. CURRENT FUNCTIONAL STATUS:: Laney was sitting up in bed when CM met with her. She engaged easily with CM and volunteered a lot of information about her family and how well supported she is. She informed CM that every morning at 7 her grandchildren arrive at her door for breakfast. Her 7 year old niece makes Laney breakfast and the boys help themselves to cereal. They are home schooled by Bree but manage to spend time every day with Laney. They run errands for he r, take out her trash and laundry and do the dishes. She describes them as very good children who are loving and well behaved. ADVANCE DIRECTIVES:: Laney has a COLST form on file that states she wished to be a DNR/DNI however her medical orders state Full Code. CM discuseed this with Laney who clearly stated that she wishes to be a Full Code. She stated that she does not remember filling out the COLST form but that it is definitely NOT what she wants at this time. Has patient been provided with info about the portal/API?: Yes Did the patient sign up for the portal?: Yes (previously) CODE STATUS:: Full Code INSURANCE COVERAGE / FINANCIAL ISSUES:: Medicare. Medicaid CURRENT HOME/COMMUNITY SERVICES/EQUIPMENT:: home O2 at 2L provided by [facility]. Laney has a walker but mostly furniture Surfs PRIMARY CARE PHYSICIAN:: Ralph Rahman POTENTIAL DISCHARGE NEEDS:: follow up appointment with PCP and plan of care. Laney should consider completing Advanced Directives to align with her current wishes PATIENT/FAMILY EDUCATION NEEDS:: Review of discharge instructions, limitations, activity, follow up plan. Ask Me Three TRANSPORTATION:: via private vehicle with family PLAN:: Laney will likely be discharged home, possibly with new home health services. She will follow up with her community providers and plan of care and transport with family. CM will continue to follow and assess for ongoing discharge concerns.
[2022-01-22] MEDS: Mylanta Suspension 30 ML CUP PO (17:42)
[2022-01-22] MEDS: Melatonin 3 MG TAB 9 MG PO (21:29)
[2022-01-23] VITALS (8 sets, daily range): BP systolic 107–127; BP diastolic 60–81; PULSE 65–118; RESP 2–22; TEMP 36.6–37.7; O2SAT 89–94
[2022-01-23] MEDS: methylPREDNISolone SUCC 125 MG VIAL 60 MG IVP (05:18)
[2022-01-23] MEDS: Cholecalciferol (Vitamin D3) 1,000 UNIT TAB 3000 UNITS PO (08:04)
[2022-01-23] MEDS: Normal Saline Flush 10 ML SYR IVP (08:04)
[2022-01-23] MEDS: Acetylcysteine 600 MG CAP PO (08:05)
[2022-01-23] MEDS: Amitriptyline 10 MG TAB PO ×2 (08:05→20:09)
[2022-01-23] MEDS: Celecoxib 200 MG CAP PO ×2 (08:05→20:09)
[2022-01-23] MEDS: Azithromycin 250 MG TAB PO (08:05)
[2022-01-23] MEDS: Benzonatate 200 MG CAP PO ×3 (08:05→20:09)
[2022-01-23] MEDS: Roflumilast 500 MCG TAB PO (08:05)
[2022-01-23] MEDS: cefTRIAXone 1 GM/50 ML BAG IVPB (08:05)
[2022-01-23] MEDS: Sertraline 100 MG TAB PO (08:05)
[2022-01-23] MEDS: Normal Saline 500 ML 30 ML IV (08:06)
[2022-01-23] MEDS: Omeprazole 20 MG CAPCR 40 MG PO (08:10)
[2022-01-23] MEDS: Diclofenac 1% Gel 100 GM TUBE TP ×4 (08:10→20:13)
[2022-01-23] MEDS: predniSONE 20 MG TAB 40 MG PO (08:11)
[2022-01-23] MEDS: Acetaminophen 325 MG TAB PO (08:28)
[2022-01-23] MEDS: clonazePAM 1 MG TAB PO ×2 (08:28→18:27)
[2022-01-23] MEDS: Budesonide/Formoterol 80/4.5 6.9 GM 60 PUFF INH IH ×2 (08:34→20:11)
[2022-01-23] MEDS: Albuterol/Ipratropium 3 ML UPD VIAL UPD ×4 (08:35→20:00)
[2022-01-23] MEDS: Tiotropium Bromide-Respimat 10 PUFF INH 2 PUFF IH (08:35)
--- NOTE | 2022-01-23 10:00 | W.PM.PROGNOT ---
Date of Service Date of service: 01/23/22 Time of Service: 10:06 Assessment and Plan Assessment and plan (1) Acute exacerbation of chronic obstructive pulmonary disease (COPD): Status: Acute Assessment and plan: oxygen supplementation, antibiotics (I am checking her procalcitonin however her CXR did not show any pneumonia; she has been on Rocephin and Azithromycin which I have changed to Augmentin and azithromycin), bronchodilators,dc methylprednisolone for prednisone. vibrapep/acapella, incentive spirometer; add mucinex and Tessalon Perles, and prn cepacol lozenges. ) (2) Acute purulent bronchitis: Status: Acute Assessment and plan: as above. I will repeat her sputum however initial culture shows only NOF. Blood cultures no growth. If her procalcitonin is normal and she is not coughing up any purulent sputum then I will limit her antibiotics to only 5 days total as her symptoms are more consistent w/ progression of her severe COPD and an AECOPD rather than an acute infectious process. I reviewed her last pulmonary notes from Dr. More in 2017 and the patient was diagnosed w/ severe COPD then w/ FEV1 of 0.8 (32% predicted) and FEV1/FVC of 33 and FVC 2.43 liters ((73%), uncorrected DLCO 29%. Patient has been on home oxygen at 2 LPM and she is on a good regimen of respiratory meds at home including Trelegy, Daliresp and prn albuterol. However, Dr. Carr in the past has documented that the patient has poor understanding of what each of her meds are used for. I think the patient needs follow up w/ pulmonology at discharge. (3) Chronic pain syndrome: Status: Acute Assessment and plan: continue her home pain regimen Subjective Subjective Interval history since last seen: Patient complaining of recurrent sore throat. Pharmacy does not have any chloraseptic throat lozenges. We will substitute chlorseptic liquid. She is on her baseline oxygen @ 2 lpm at rest. However when RT ambulated her her oxygen dropped to 80% and she required an increase of her oxygen to 6 lpm to get her SPO2 over 90%. No sputum production today but she alleges producing green colored sputum yesterday. She remains afebrile. Exam Narrative Exam Narrative: Laney was seen sitting up in bed getting ready for her pulse oximetry walk w/ RT HEENT: she has dentures however, I had her remove them and did not see any redness, nor any exudates neck: supple, nontender Lungs: clear w/ prolonged expiratory phase; no rhonchi or wheezing or rales Heart: regular Extremities: no edema or cyanosis Objective Last Vital Signs Temp 37 C 01/23/22 07:13 Pulse 72 01/23/22 07:13 Resp 20 01/23/22 07:13 BP 127/81 01/23/22 07:13 Pulse Ox 94 01/23/22 07:13 Laboratory Results - last 24 hr 01/21/22 14:04 Urine Legionella Ag Negative
--- NOTE | 2022-01-23 10:15 | RESPIRATORY ---
Pt's baseline is 2L O2 08/11 with [facility]. Pt states that she normally does not walk at home, only goes to the bathroom and back. Pt also states that she has portable O2 at home, but does not like to use it because it weighs too much for her to carry around for long durations.
[2022-01-23] MEDS: Amoxicillin 875/Clav. 125 TAB PO ×2 (10:49→20:09)
[2022-01-23] MEDS: Enoxaparin 40 MG/0.4 ML SYR SC (12:10)
[2022-01-23 12:21] LABS: Procalcitonin < 0.1 ng/mL
[2022-01-23] MEDS: oxyCODONE 5 MG TAB PO (21:22)
[2022-01-23] MEDS: Melatonin 3 MG TAB 9 MG PO (21:22)
[2022-01-24] VITALS (9 sets, daily range): BP systolic 99–121; BP diastolic 59–72; PULSE 75–92; RESP 4–19; TEMP 36.1–37.2; O2SAT 90–96
[2022-01-24] MEDS: Albuterol/Ipratropium 3 ML UPD VIAL UPD ×3 (00:19→15:54)
[2022-01-24 06:22] LABS: Platelet Count 209 10^3/uL (130-400)
[2022-01-24] MEDS: Budesonide/Formoterol 80/4.5 6.9 GM 60 PUFF INH IH ×2 (07:26→19:38)
[2022-01-24] MEDS: Tiotropium Bromide-Respimat 10 PUFF INH 2 PUFF IH (07:26)
[2022-01-24] MEDS: Amoxicillin 875/Clav. 125 TAB PO ×2 (07:54→19:35)
[2022-01-24] MEDS: Benzonatate 200 MG CAP PO ×3 (07:54→19:35)
[2022-01-24] MEDS: Sertraline 100 MG TAB PO (07:54)
[2022-01-24] MEDS: Omeprazole 20 MG CAPCR 40 MG PO (07:54)
[2022-01-24] MEDS: Azithromycin 250 MG TAB PO (07:54)
[2022-01-24] MEDS: Celecoxib 200 MG CAP PO ×2 (07:54→19:35)
[2022-01-24] MEDS: Roflumilast 500 MCG TAB PO (07:54)
[2022-01-24] MEDS: Cholecalciferol (Vitamin D3) 1,000 UNIT TAB 3000 UNITS PO (07:55)
[2022-01-24] MEDS: predniSONE 20 MG TAB 40 MG PO (07:55)
[2022-01-24] MEDS: Normal Saline Flush 10 ML SYR IVP (07:55)
[2022-01-24] MEDS: Acetylcysteine 600 MG CAP PO (07:55)
[2022-01-24] MEDS: Amitriptyline 10 MG TAB PO ×2 (07:55→19:35)
[2022-01-24] MEDS: Diclofenac 1% Gel 100 GM TUBE TP ×3 (07:56→15:54)
[2022-01-24] MEDS: clonazePAM 1 MG TAB PO ×2 (07:59→18:14)
--- NOTE | 2022-01-24 09:04 | W.PM.PROGNOT ---
Date of Service Date of service: 01/24/22 Time of Service: 09:04 Assessment and Plan Assessment and plan (1) Acute exacerbation of chronic obstructive pulmonary disease (COPD): Status: Acute Assessment and plan: cont prednisone, oxygen, bronchodilators; will limite her antibiotics to 5 days only as she has no evidence for pneumonia, has been afebrile and her sputum only grew NOF. Today will be day 4 of her antibiotics (she had 2 dayss of Ceftriaxone and now 4th day of azithromycin, today is day #2 of Augmentin. Despite her claiming to initially producing green sputum her inflammatory markers (WBC and procalcitonin have been normal and her CXR did not show any infiltrares. Correction: her sputum is now showing growth of Moraxella catarrhalis, I will dc azithromycin but continue Augmentin for total of 7 days. (2) Acute purulent bronchitis: Status: Suspected Assessment and plan: Moraxella catarrhalis; continue Augmentin. She should complete 5 to 7 days of antibiotics. She had two days of Ceftriaxone and now on 2nd day of Augmentin. I will continue for 3 more days of Augmentin for total of 7 days. (3) Chronic pain syndrome: Status: Acute Assessment and plan: continue her home pain regimen (4) Dysphagia: Status: Acute Assessment and plan: will ask GUITAR MAKER HAND to evaluate her and get UGI swallowing evaluation; change her diet to minced and moistened w/ thickened liquids. Although I did not see any evidence of thrush in her throat, I will empirically put her on nystatin oral (5) Odynophagia: Status: Acute Subjective Subjective Interval history since last seen: Patient complains of severer throat pains; painful swallowing and some difficulty swallowing of pills. Cepacaol not helping. No acute dyspnea or sputum production. Exam Narrative Exam Narrative: Ill appearing elderly female who is not in any respiratory distress, lying in bed watching TV Not using accessory respiratory muscles. She is at her baseline oxygen use of 2 lpm Lungs: clear w/ prolonged expiratory phase however w/ forceful deep breathing I am able to elicit an end expiratory wheeze Heart: RRR HEENT: her oropharynx is not swollen and there is no exudate or redness Neck supple w/ out palpable masses or adenopathy; trachea midline Objective Last Vital Signs Temp 36.4 C L 01/24/22 07:18 Pulse 86 01/24/22 07:28 Resp 18 01/24/22 07:28 BP 109/70 01/24/22 07:18 Pulse Ox 94 01/24/22 07:28 Laboratory Results - last 24 hr 01/23/22 01/24/22 11:00 05:46 Plt Count 209 Procalcitonin < 0.1
[2022-01-24] MEDS: Nystatin 500000 UNITS/5 ML SUSP 5ML CUP PO ×3 (09:29→19:40)
[2022-01-24] MEDS: Enoxaparin 40 MG/0.4 ML SYR SC (11:36)
[2022-01-24] MEDS: oxyCODONE 5 MG TAB PO ×2 (15:38→21:35)
[2022-01-24 16:20] LABS: Streptococcus Pneumoniae Ag, U Negative (Negative)
[2022-01-24 17:24] LABS: Legionella Ag Detection Urine Negative (Negative)
[2022-01-24 18:57] LABS: Source Nasopharynx
[2022-01-24 19:32] LABS: COVID-19 PCR Negative (Negative)
[2022-01-24] MEDS: Melatonin 3 MG TAB 9 MG PO (21:35)
[2022-01-25] VITALS (11 sets, daily range): BP systolic 99–134; BP diastolic 52–84; PULSE 72–85; RESP 4–18; TEMP 36.1–37.1; O2SAT 89–99
--- NOTE | 2022-01-25 | DI.RAD_ITS ---
Exam(s) RF BARIUM SWALLOW EXAM: RF BARIUM SWALLOW CLINICAL HISTORY: odynophagia TECHNIQUE: 2D and realtime digital imaging was performed. CONTRAST MATERIAL: Thick and thin barium and barium tablet were administered. COMPARISON: CR XR PORTABLE CHEST AP from 01/21/2022 FINDINGS: Steam Blocker view of the abdomen shows an unremarkable bowel gas pattern. The winchman/crane operator view of the neck shows mild degenerative changes in the cervical spine. Exam is mildly limited by patient immobility. Patient's swallowed barium without difficulty. No asp iration was observed. There is a tiny Zenker's diverticulum. There are mild tertiary contractions i n the distal 3rd of the esophagus. There is a small sliding hiatal hernia. There is mild gastroesop hageal reflux. No ulcer or stricture is seen. The stomach and duodenum are unremarkable.. IMPRESSION: Small sliding hiatal hernia. Tiny Zenker's diverticulum. Tertiary esophageal contractions. RADIATION DOSE DELIVERED: ashley Ibrahim=19.3 mGy
[2022-01-25] MEDS: Albuterol/Ipratropium 3 ML UPD VIAL UPD ×3 (07:48→19:25)
[2022-01-25] MEDS: Tiotropium Bromide-Respimat 10 PUFF INH 2 PUFF IH (07:48)
[2022-01-25] MEDS: Budesonide/Formoterol 80/4.5 6.9 GM 60 PUFF INH IH ×2 (07:48→19:17)
--- NOTE | 2022-01-25 11:18 | PDOC.STREC ---
Date of service: 01/25/22 Time of Service: 11:18 Speech Therapy Recommendations Report ST Recommendations: Speech Language Pathology - Recommendations Consult received, chart reviewed. Patient referred for Swallow Consult from Dr Reyes given increased difficulty swallowing solids and pills accompanied by severe throat pain including odynophagia. Precautions: Standard, Full Code, Fall Risk ? HPI: Pt is a 76 year old female, former smoker with COPD, GERD, admitted with cough, dyspnea, R pleuritic pain, who was recently treated for COPD exacerbation/bronchitis w/ Ceftin x 5 days after a tele consult w/ her PCP, Dr. Rahman which occurred on 01/06/22. Patient stated symptomatic improvement in her cough after the first couple days of the Ceftin but over the past couple days has progressively gotten worse since Tuesday when her cough became more productive of purulent sputum of green mucous. Initial imaging and cultures initially not significant for infection or PNA, now positive for moraxella catarrhalis and she is reji 7day abx regimen. Since admit, patient has experienced worsening throat pain and odynophagia, with complaints of difficulty swallowing solid foods and pills. Per MD and nursing, patient with no observed or reported difficulty or s/sx aspiration with liquids. After dysphagia complaints, diet was changed to minced/moist and thickened liquids. Esophagram completed this date with results as below: EXAM: ? RF BARIUM SWALLOW IMPRESSION: Small sliding hiatal hernia.? Tiny Zenker's diverticulum.? Tertiary esophageal contractions. Predisposing dysphagia risk factors: GERD, COPD Clinical signs of possible chronic dysphagia: Precipitating dysphagia risk factors / triggering event: Throat pain, COPD exacerbation. RECOMMENDATIONS & PLAN: Patient with increased swallow difficulty since admission likely in setting of increasing throat pain. Other related factors include GERD, COPD with acute exacerbation. Given no reported difficulty with thin liquids, recommend return to THIN LIQUIDS. Solid diet of Level 5 MINCED/MOIST is appropriate given patient's level of pain, may upgrade or downgrade according to her comfort level if no s/sx aspiration (cough, choke, wet voice, change in respiratory status) during meals. INSTALLATION SPECIALIST will complete clinical swallow evaluation at bedside tomorrow morning as able to rule out further aspiration risk and provide personalized recommendations and education to patient (including Reflux Management Counseling). If patient is discharged prior to INSTALLATION SPECIALIST evaluation, outpatient INSTALLATION SPECIALIST referral may be placed. SUGGESTED REFERRALS: GI Diet Texture Modification(s): 5-Minced & Moist Solids 0-Thin Liquids Medication Intake: Whole with 4-Extremely Thick Liquids/Puree RISK MANAGEMENT: HOB upright as tolerated; upright for all PO intake. Encourage physical mobility as tolerated. Oral hygiene BID/2x per day using friction with toothbrush on all oral structures as tolerated PROTOCOL ? Reflux precautions: As upright as possible for all PO intake. Maintain upright position at least 60m after daytime meals. Wait 2-3 hrs after eating prior to going to sleep for the night. Smaller, more frequent meals throughout the day. Slow pace of PO intake. Sleep with HOB partially elevated as tolerated, or L side sleeping to reduce risk of nightime reflux aspiration. PFSH All Active Problems? GERD (gastroesophageal reflux disease) (Chronic) Chronic obstructive pulmonary disease (Chronic) Chronic pain syndrome (Acute 12/15/16) CONTROLLED SUBSTANCE AGREEMENT 10/03/18 Lumbosacral spondylosis without myelopathy (Acute) Fibromyalgia (Acute) Fall (Acute) Low back pain (Acute) Fever (Acute) Acute purulent bronchitis (Acute) Discharge planning issues (Acute) Acute exacerbation of chronic obstructive pulmonary disease (COPD) (Acute) T12 compression fracture (Acute) Ongoing leg pain (Acute) continue nSaid prn tramadol see surgeon next week consider topical analgesic on surrounding skinHemoptysis (Acute) History of cataract removal with insertion of prosthetic lens (Acute 06/05/15) History of chest tube placement (Acute) Status post appendectomy (Acute) Status post laminectomy (Acute) Pain from implanted hardware (Chronic 10/30/18) S/P Hardware removalBacterial pneumonia (Acute 11/23/13) Chronic anxiety (Chronic 06/22/13) Chronic emphysema syndrome (Chronic) Chronic pain in right shoulder (Chronic 11/20/13) Moderate protein malnutrition (Chronic 11/20/13) Contusion of right knee, initial encounter (Acute) Neck pain (Acute) Irritable bowel syndrome with diarrhea (Chronic) Cervical neck pain with evidence of disc disease (Chronic 06/22/13) History of tobacco abuse (Chronic) Anxiety (Chronic) LLL pneumonia (Acute ~03/30/18) Medical History? DNI (do not intubate) DNR (do not resuscitate) POLST (Physician Orders for Life-Sustaining Treatment) Surgical History? Appendectomy CHEST TUBE Extraction of cataract 06/05/15; LEFT EYE; DR. ERAZO/O section Hx of hysterectomy LAMINECTOMY CERVICAL SPINE Coding
[2022-01-25] MEDS: Barium Sulfate 60% W/V 355 ML BTL PO (11:36)
--- NOTE | 2022-01-25 11:42 | PGE_ITS ---
Date of Service Date of service: 01/25/22 Time of Service: 11:42 Assessment and Plan Assessment and plan (1) Acute exacerbation of chronic obstructive pulmonary disease (COPD): Status: Acute Assessment and plan: cont. supportive care w/ bronchodilators including her LABA/LAMA/ICS, prn DuoNeb, prednisone and Augmentin for Moraxella We will give her influenza vaccine and if the bivalent COVID-19 booster is available I will ask pharmacy to give this to her now prior to dc home. (2) Acute purulent bronchitis: Status: Suspected Assessment and plan: Moraxella catarrhalis; continue Augmentin. She should complete 5 to 7 days of antibiotics. She had two days of Ceftriaxone and now on 3nd day of Augmentin. I will continue for 2 more days of Augmentin for total of 7 days. (3) Chronic pain syndrome: Status: Acute Assessment and plan: continue her home pain regimen (4) Dysphagia: Status: Acute Assessment and plan: cont. Nystatin, check UGI study; RECOVERY COLLECTOR to see patient tomorrow. diet advanced to thin liquids w/ bite sized soft foods (5) Odynophagia: Status: Acute Assessment and plan: as above Subjective Subjective Interval history since last seen: Laney says that her sore throat is somewhat better but she still has painf w/ swallowing. She does not llike the thickened liquids and moist/minced diet. RECOVERY COLLECTOR can not see her today. They recommend that if she has no problem w/ swallowing water then to advance her diet. She completed an UGI barium swallow study, results are pending. Laney informed me that 3/4 grandchildren and her [id number] and her son have COVID. None were vaccinated. Laney lives in a [id number] suite adjacent to them although she has her own bathroom and living room and kitchen but the grandchildren are over there daily. She indicated that her son will keep the grandchildren away during the quarrantine period. Laney was retested last night for SARS-COV2 and was negative. Exam Narrative Exam Narrative: Laney is alert and oriented; no respiratory distress, able to talk in complete paragraphs w/out dyspnea Lungs: clear w/ prolonged expiration, Heart: RRR Neck: supple, nontender to palpation, no adenopathy Abdomen: soft, nondistended Extremities: no edema Objective Last Vital Signs Temp 36.3 C L 01/25/22 07:44 Pulse 78 01/25/22 07:50 Resp 17 01/25/22 07:50 BP 111/70 01/25/22 07:44 Pulse Ox 95 01/25/22 07:50 Laboratory Results - last 24 hr 01/21/22 01/23/22 01/24/22 14:04 12:30 18:50 COVID-19 Source Nasopharynx SARS-CoV-2 (PCR) Negative Urine Legionella Ag Negative Ur Strep pneumoniae Ag Negative
[2022-01-25] MEDS: Normal Saline Flush 10 ML SYR IVP (11:48)
[2022-01-25] MEDS: Benzonatate 200 MG CAP PO ×2 (11:49→19:20)
[2022-01-25] MEDS: Nystatin 500000 UNITS/5 ML SUSP 5ML CUP PO ×2 (11:49→19:22)
[2022-01-25] MEDS: Acetylcysteine 600 MG CAP PO (11:49)
[2022-01-25] MEDS: Azithromycin 250 MG TAB PO (11:49)
[2022-01-25] MEDS: Cholecalciferol (Vitamin D3) 1,000 UNIT TAB 3000 UNITS PO (11:49)
[2022-01-25] MEDS: Roflumilast 500 MCG TAB PO (11:49)
[2022-01-25] MEDS: Omeprazole 20 MG CAPCR 40 MG PO (11:49)
[2022-01-25] MEDS: Amitriptyline 10 MG TAB PO ×2 (11:49→19:20)
[2022-01-25] MEDS: Sertraline 100 MG TAB PO (11:50)
[2022-01-25] MEDS: predniSONE 20 MG TAB 40 MG PO (11:50)
[2022-01-25] MEDS: Amoxicillin 875/Clav. 125 TAB PO ×2 (11:50→19:20)
[2022-01-25] MEDS: Celecoxib 200 MG CAP PO ×2 (11:50→19:20)
[2022-01-25] MEDS: Enoxaparin 40 MG/0.4 ML SYR SC (12:00)
[2022-01-25] MEDS: oxyCODONE 5 MG TAB PO ×2 (12:00→19:20)
[2022-01-25] MEDS: clonazePAM 1 MG TAB PO ×2 (12:00→21:30)
[2022-01-25] MEDS: Diclofenac 1% Gel 100 GM TUBE TP ×3 (12:00→19:23)
--- NOTE | 2022-01-25 17:41 | PDOC.CMPRO ---
- If Service Date Differs Date of service: 01/25/22 Time of Service: 17:42 Care Management Progress Note S/O: Laney remains inpatient at this time, CM continues to follow. A: 76 year old female admitted 01/23/22 COPD exacerbation P: Laney will likely be discharged home, possibly with new home health services. She will follow up with her community providers and plan of care and transport with family. CM will continue to follow and assess for ongoing discharge concerns.
--- NOTE | 2022-01-25 18:03 | RESPIRATORY ---
RT discussed with patient concerning if on O2 at home, baseline is 2LPM and her DME is [facility].
[2022-01-25] MEDS: Melatonin 3 MG TAB 9 MG PO (21:30)
[2022-01-25] MEDS: Acetaminophen 325 MG TAB PO (23:37)
[2022-01-26] VITALS (11 sets, daily range): BP systolic 96–135; BP diastolic 57–72; PULSE 71–88; RESP 8–18; TEMP 35.8–36.8; O2SAT 84–95
[2022-01-26] MEDS: Tiotropium Bromide-Respimat 10 PUFF INH 2 PUFF IH (07:46)
[2022-01-26] MEDS: Albuterol/Ipratropium 3 ML UPD VIAL UPD ×2 (07:46→11:48)
[2022-01-26] MEDS: Budesonide/Formoterol 80/4.5 6.9 GM 60 PUFF INH IH ×2 (07:46→20:22)
[2022-01-26] MEDS: Nystatin 500000 UNITS/5 ML SUSP 5ML CUP PO ×3 (08:00→20:21)
[2022-01-26] MEDS: Benzonatate 200 MG CAP PO ×3 (08:00→20:19)
[2022-01-26] MEDS: Celecoxib 200 MG CAP PO ×2 (08:00→20:19)
[2022-01-26] MEDS: Sertraline 100 MG TAB PO (08:01)
[2022-01-26] MEDS: predniSONE 20 MG TAB 40 MG PO (08:01)
[2022-01-26] MEDS: Cholecalciferol (Vitamin D3) 1,000 UNIT TAB 3000 UNITS PO (08:01)
[2022-01-26] MEDS: Amitriptyline 10 MG TAB PO ×2 (08:01→20:19)
[2022-01-26] MEDS: Acetylcysteine 600 MG CAP PO (08:01)
[2022-01-26] MEDS: Roflumilast 500 MCG TAB PO (08:01)
[2022-01-26] MEDS: Omeprazole 20 MG CAPCR 40 MG PO (08:01)
[2022-01-26] MEDS: Azithromycin 250 MG TAB PO (08:01)
[2022-01-26] MEDS: Amoxicillin 875/Clav. 125 TAB PO ×2 (08:02→20:19)
[2022-01-26] MEDS: oxyCODONE 5 MG TAB PO ×2 (08:03→20:19)
--- NOTE | 2022-01-26 09:16 | SP_ITS ---
Date of service: 01/26/22 Time of Service: 08:15 Subjective Speech Language Pathology - Clinical Swallow Evaluation Precautions: Standard, Full Code, Fall Risk HPI: Pt is a 76 year old female, former smoker with COPD, GERD, admitted with cough, dyspnea, R pleuritic pain, who was recently treated for COPD exacerbation/bronchitis w/ Ceftin x 5 days after a tele consult w/ her PCP, Dr. Rahman which occurred on 01/06/22. Patient stated symptomatic improvement in her cough after the first couple days of the Ceftin but over the past couple days has progressively gotten worse since Tuesday when her cough became more productive of purulent sputum of green mucous. Initial imaging and cultures initially not significant for infection or PNA, now positive for moraxella catarrhalis and she is reji 7day abx regimen. Since admit, patient has experienced worsening throat pain and odynophagia, with complaints of difficulty swallowing solid foods and pills. Per MD and nursing, patient with no observed or reported difficulty or s/sx aspiration with liquids. After dysphagia complaints, diet was changed to minced/moist and thickened liquids. Esophagram completed this date with results as below: EXAM: ? RF BARIUM SWALLOW IMPRESSION: Small sliding hiatal hernia.? Tiny Zenker's diverticulum.? Tertiary esophageal contractions. Predisposing dysphagia risk factors: GERD, COPD Clinical signs of possible chronic dysphagia: Precipitating dysphagia risk factors / triggering event: Throat pain, COPD exacerbation. Subjective: Laney states this morning that her throat feels 100% better since her swallow study (esophagram) yesterday. Prior to that, she was having trouble with food and pills sticking in her throat and trouble initiating swallow due to pain. She states she is enjoying her diet here and has no complaints on texture/consistency. She was able to take her pills this morning without difficulty. She denies baseline coughing, choking during meals but does endorse occasional sensation of pharyngeal stasis (localizes to ~level of valleculae). She endorses long history of reflux & heartburn which she reports is greatly improved by new prescription of PPI ~6 months ago. Assessment & Plan: Suspect patient swallowing function has returned to baseline with improved throat pain. Suspect mild baseline dysphagia in setting of COPD and GERD. Given esophagram with small zenker's diverticulum, GI consult may be warranted if patient has further complaints regarding discomfort in the future. She remains at mild risk of aspiration given difficulty sitting fully upright, baseline level of COPD, and likelihood of nightime reflux. Discussed primary management strategies and provided education this date re: additional reflux management/precautions and instructions for increased frequency/diligence of oral care to reduce risk of pulmonary complications. No further HUMAN ANATOMY TEACHER services needed while on unit. No outpatient or home health HUMAN ANATOMY TEACHER services warranted unless patient identifies further swallowing concerns in the future. Diet Texture Modification(s): 5-Minced & Moist Solids 0-Thin Liquids Medication Intake: Whole with 4-Extremely Thick Liquids/Puree RISK MANAGEMENT: HOB upright as tolerated; upright for all PO intake. Encourage physical mobility as tolerated. Oral hygiene BID/2x per day and before/after all meals using friction with toothbrush on all oral structures as tolerated ? Level of Assistance/Supervision: Independent PO intake only when awake/alert? Strategies/Adaptations/Assistive Equipment: Reduce auditory and/or visual distractions when eating Small sips and bites when eating Slow rate of intake Small+frequent meals throughout day ? Reflux precautions: As upright as possible for all PO intake. Maintain upright position at least 60m after daytime meals. Wait 2-3 hrs after eating prior to going to sleep for the night. Smaller, more frequent meals throughout the day. Slow pace of PO intake. Sleep with HOB partially elevated as tolerated, or L side sleeping to reduce risk of nighttime reflux aspiration. PFSH All Active Problems? GERD (gastroesophageal reflux disease) (Chronic) Chronic obstructive pulmonary disease (Chronic) Chronic pain syndrome (Acute 12/15/16) CONTROLLED SUBSTANCE AGREEMENT 10/03/18 Lumbosacral spondylosis without myelopathy (Acute) Fibromyalgia (Acute) Fall (Acute) Low back pain (Acute) Fever (Acute) Acute purulent bronchitis (Acute) Discharge planning issues (Acute) Acute exacerbation of chronic obstructive pulmonary disease (COPD) (Acute) T12 compression fracture (Acute) Ongoing leg pain (Acute) continue nSaid prn tramadol see surgeon next week consider topical analgesic on surrounding skinHemoptysis (Acute) History of cataract removal with insertion of prosthetic lens (Acute 06/05/15) History of chest tube placement (Acute) Status post appendectomy (Acute) Status post laminectomy (Acute) Pain from implanted hardware (Chronic 07/15/19) S/P Hardware removalBacterial pneumonia (Acute 11/23/13) Chronic anxiety (Chronic 06/22/13) Chronic emphysema syndrome (Chronic) Chronic pain in right shoulder (Chronic 11/20/13) Moderate protein malnutrition (Chronic 11/20/13) Contusion of right knee, initial encounter (Acute) Neck pain (Acute) Irritable bowel syndrome with diarrhea (Chronic) Cervical neck pain with evidence of disc disease (Chronic 06/22/13) History of tobacco abuse (Chronic) Anxiety (Chronic) LLL pneumonia (Acute ~03/30/18) Medical History? DNI (do not intubate) DNR (do not resuscitate) POLST (Physician Orders for Life-Sustaining Treatment) Surgical History? Appendectomy CHEST TUBE Extraction of cataract 06/05/15; LEFT EYE; DR. ERAZO/O section Hx of hysterectomy LAMINECTOMY CERVICAL SPINE Objective Objective Language: Grossly WFL verbal expression/fluency, naming, repetition, auditory comprehension Mental Status: Alert and Orientedx3 Recall of current events intact Speech: WFL Oral motor & peripheral exam: CN Exam/Screen: [facility] for strength, symmetry, ROM Dention: full upper plate, partial lower Oral Care/Mucosa: moist/good Laryngeal: Declined volitional cough due to back pain but with robust throat clear and laryngeal coup - clear/dry vocal quality Respiration: 1L O2 via nasal cannula. Food items tested: ?? IDDSI 0: Water IDDSI 4: Pudding IDDSI 7: Cracker Oral phase: [ ] WFL [ ] Leakage from mouth [ ] Difficulty with bolus manipulation [ ] Difficulty with a-p transport x Difficulty chewing - mildly prolonged [ ] Pocketing [ ] Residue Pharyngeal phase: x WFL [ ] Delayed swallow initiation [ ] Reduced hyolaryngeal elevation/excursion [ ] Cough after swallow [ ] Voice change after swallow? [ ] Throat clearing? [ ] Endorsed stasis? Provided education to: Patient Topics Addressed: anatomy/physiology of swallowing mechanism, overt s/sx to monitor for re: potential aspiration of food / liquids, recommendations for improved oral care, relationship between respiratory function changes and deglutition, Rationale for recommendations as outlined below Outcome: Verbalized/demonstrated understanding HUMAN ANATOMY TEACHER CPT Code: 89134 Clinical Swallowing Evaluation Time spent: 45 min Coding
[2022-01-26] MEDS: clonazePAM 1 MG TAB PO ×2 (10:05→21:45)
[2022-01-26] MEDS: Diclofenac 1% Gel 100 GM TUBE TP ×2 (12:25→21:46)
[2022-01-26] MEDS: Enoxaparin 40 MG/0.4 ML SYR SC (14:00)
--- NOTE | 2022-01-26 15:08 | CHAPLAIN ---
Laney was resting in bed when I visited. She told me her son is a safety administrator and a stage electrician in the [employer]. 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 Laney lives in an in-law apartment in her son's house. His four kids are home schooled and are available to help Laney with chores like laundry and vacuuming. I will continue to visit.
--- NOTE | 2022-01-26 16:37 | PDOC.CMPRO ---
- If Service Date Differs Date of service: 01/26/22 Time of Service: 16:37 Care Management Progress Note S/O: Laney remains inpatient at this time, per MD she continues to make gains towards discharge and will further discuss safety measures due to family currently having COVID. CM continues to follow. A: 76 year old female admitted 01/23/22 COPD exacerbation P: Laney will likely be discharged home, possibly with new home health services. She will follow up with her community providers and plan of care and transport with family. CM will continue to follow and assess for ongoing discharge concerns.
--- NOTE | 2022-01-26 17:21 | PGE_ITS ---
Date of Service Date of service: 01/26/22 Time of Service: 17:21 Assessment and Plan Assessment and plan (1) Acute exacerbation of chronic obstructive pulmonary disease (COPD): Status: Acute Assessment and plan: Improving. Continue prednisone, augmentin. D/c azithromycin. Continue scheduled + prn nebs, spiriva, symbicort, NAC. Consider mucinex. Received flu vaccine and covid-19 booster today. (2) Acute purulent bronchitis: Status: Suspected Assessment and plan: Sputum c&S w/ Moraxella catarrhalis. Continue augmentin. (3) Chronic pain syndrome: Status: Acute Assessment and plan: Continue current regimen. (4) Dysphagia: Status: Acute Assessment and plan: Zenker's diverticulum on barium swallow. Evaluated by ELECTRIC POWER LINE REPAIRER: recommended soft & bite sized solids with thin liquids; meds with extremely thickened fluids/puree. (5) Odynophagia: Status: Acute Assessment and plan: as above (6) DVT prophylaxis: Status: Acute Assessment and plan: SC enoxaparin (7) Discharge planning issues: Status: Acute Assessment and plan: DNR/DNI as per COLST form in 2019. Subjective Subjective Interval history since last seen: Ms Stephens states that she feels a lot better than when she first came in but not any better than yesterday. She gets dizzy when she gets up. She is still short of breath on exertion. She is requiring 3L on ambulation today (her baseline is 2L). She feels tired. She reports cough and chest pain on coughing. Cough is nonproductive. Denies nausea. She is inquiring about the results of her barium swallow. Exam Narrative Exam Narrative: General: Pleasant elderly female who is tired and looks weak, A&Ox3, NAD HEENT: EOMI, MMM Heart: RRR, no m/r/g Lungs: Diminished breath sounds on R, wheezing on expiration on L, coughing Abdomen: soft, nontender, nondistended Extremities: no edema BLEs. Objective Last Vital Signs Temp 35.8 C L 01/26/22 14:47 Pulse 82 01/26/22 14:47 Resp 18 01/26/22 14:47 BP 112/69 01/26/22 14:47 Pulse Ox 94 01/26/22 14:47 Objective Narrative Objective Narrative: Barium swallow: Small sliding hiatal hernia.? Tiny Zenker's diverticulum.? Tertiary esophageal contractions.
[2022-01-26] MEDS: Melatonin 3 MG TAB 9 MG PO (21:45)
[2022-01-27] VITALS (10 sets, daily range): BP systolic 86–126; BP diastolic 53–79; PULSE 70–98; RESP 8–24; TEMP 36–37; O2SAT 89–100
[2022-01-27 06:14] LABS: Platelet Count 218 10^3/uL (130-400)
[2022-01-27] MEDS: Nystatin 500000 UNITS/5 ML SUSP 5ML CUP PO ×3 (08:13→19:35)
[2022-01-27] MEDS: Benzonatate 200 MG CAP PO ×3 (08:14→19:36)
[2022-01-27] MEDS: Sertraline 100 MG TAB PO (08:14)
[2022-01-27] MEDS: Amitriptyline 10 MG TAB PO ×2 (08:14→19:36)
[2022-01-27] MEDS: Omeprazole 20 MG CAPCR 40 MG PO ×2 (08:14→19:36)
[2022-01-27] MEDS: Amoxicillin 875/Clav. 125 TAB PO ×2 (08:14→19:36)
[2022-01-27] MEDS: predniSONE 20 MG TAB 40 MG PO (08:15)
[2022-01-27] MEDS: Acetylcysteine 600 MG CAP PO (08:15)
[2022-01-27] MEDS: Roflumilast 500 MCG TAB PO (08:15)
[2022-01-27] MEDS: Celecoxib 200 MG CAP PO ×2 (08:15→19:36)
[2022-01-27] MEDS: clonazePAM 1 MG TAB PO ×2 (08:19→19:36)
[2022-01-27] MEDS: Albuterol/Ipratropium 3 ML UPD VIAL UPD ×3 (08:27→19:35)
[2022-01-27] MEDS: Tiotropium Bromide-Respimat 10 PUFF INH 2 PUFF IH (08:27)
[2022-01-27] MEDS: Budesonide/Formoterol 80/4.5 6.9 GM 60 PUFF INH IH ×2 (08:27→19:35)
[2022-01-27] MEDS: oxyCODONE 5 MG TAB PO (13:22)
[2022-01-27] MEDS: Diclofenac 1% Gel 100 GM TUBE TP ×2 (13:29→19:56)
[2022-01-27] MEDS: Enoxaparin 40 MG/0.4 ML SYR SC (13:29)
--- NOTE | 2022-01-27 16:51 | PDOC.CMPRO ---
- If Service Date Differs Date of service: 01/27/22 Time of Service: 16:51 Care Management Progress Note S/O: Laney was sitting up in bed when CM met with her. She stated that she is not sure if she feels ready for discharge today, but that if the MD felt she was ready, she would be happy to return home. She explained that her grandchildren are very helpful with her care (getting her coffee, food, drinks), but they are not able to visit currently as they are sick with Covid. She reported that she feels she would be ok until they are feeling better. CM discussed home health services, and she declined. Per report, she was scheduled to have an exercise oximetry walk today to help determine discharge readiness. CM will continue to follow. A: 76 year old female admitted 01/23/22 COPD exacerbation P: Laney will likely be discharged home, possibly with new home health services. She will follow up with her community providers and plan of care and transport with family. CM will continue to follow and assess for ongoing discharge concerns.
--- NOTE | 2022-01-27 18:06 | W.PM.PROGNOT ---
Date of Service Date of service: 01/27/22 Time of Service: 18:07 Assessment and Plan Assessment and plan (1) Acute exacerbation of chronic obstructive pulmonary disease (COPD): Status: Acute Assessment and plan: Improving. Continue prednisone, augmentin. Continue scheduled + prn nebs, spiriva, symbicort, NAC. Consider mucinex. s/p flu vaccine and covid-19 booster 01/26/22. (2) Acute purulent bronchitis: Status: Suspected Assessment and plan: Sputum c&S w/ Moraxella catarrhalis. Continue augmentin. (3) Epigastric pain: Status: Acute Assessment and plan: ?Gastritis or ulcer, given that it seems to get worse with meals. Check hematest. Double the PPI and add carafate. Is On NSAIDS - consider stopping. (4) Chronic pain syndrome: Status: Acute Assessment and plan: Continue current regimen. Schedule tylenol. Add flexeril. (5) Dysphagia: Status: Acute Assessment and plan: Zenker's diverticulum on barium swallow. Evaluated by EYEWEAR MANUFACTURING SUPERVISOR: recommended soft & bite sized solids with thin liquids; meds with extremely thickened fluids/puree. (6) Odynophagia: Status: Acute Assessment and plan: as above (7) DVT prophylaxis: Status: Acute Assessment and plan: SC enoxaparin (8) Discharge planning issues: Status: Acute Assessment and plan: DNR/DNI as per COLST form in 2019. Anticipate discharge home tomorrow Subjective Subjective Interval history since last seen: Not feeling better. Still coughing a lot - now nonproductive. When ambulating today, requiring 2L of O2 by [place], which is her baseline. NO dizziness, chest pain, nausea. Reports epigastric pain, worse with eating, for a long time. States she has a h/o ulcers. Also reports chronic shoulder and back pain. Voltaren helps. Has not tried flexeril for this and would like to. States oxycodone does not help the pain and that's why she does not have it at home. Has been seen in pain clinic where ablation was being considered. She states that the injections really hurt and that is why she did not go back. Exam Narrative Exam Narrative: General: Pleasant elderly female who is tired and looks weak, A&Ox3, NAD HEENT: EOMI, MMM Heart: RRR, no m/r/g Lungs: Diminished breath sounds on R, wheezing on expiration on L, coughing Abdomen: soft, tender in epigastrium, nondistended Extremities: no edema BLEs. Objective Last Vital Signs Temp 36.8 C 01/27/22 16:12 Pulse 80 01/27/22 16:12 Resp 18 01/27/22 16:12 BP 100/64 01/27/22 16:12 Pulse Ox 94 01/27/22 16:12 Laboratory Results - last 24 hr 01/27/22 05:40 Plt Count 218
[2022-01-27] MEDS: Normal Saline Flush 10 ML SYR IVP (19:35)
[2022-01-27] MEDS: Cyclobenzaprine 10 MG TAB PO (19:36)
[2022-01-27] MEDS: Acetaminophen 500 MG TAB 1000 MG PO (20:07)
[2022-01-27] MEDS: Sucralfate 1 GM TAB PO (21:18)
[2022-01-27] MEDS: Melatonin 3 MG TAB 9 MG PO (21:18)
[2022-01-28] VITALS (10 sets, daily range): BP systolic 98–123; BP diastolic 60–68; PULSE 73–81; RESP 1–20; TEMP 36.2–36.9; O2SAT 91–100
[2022-01-28] MEDS: Normal Saline Flush 10 ML SYR IVP ×2 (00:08→19:32)
[2022-01-28] MEDS: Albuterol/Ipratropium 3 ML UPD VIAL UPD ×4 (00:08→19:32)
[2022-01-28] MEDS: oxyCODONE 5 MG TAB PO ×2 (01:18→12:40)
[2022-01-28 06:25] LABS: Anion Gap 4.2 mmol/L (3-11); BUN 20 mg/dL (7-18); CO2 32.8 mmol/L (21.0-32.0); CREATININE 0.7 mg/dL (0.55-1.02); Calcium 8.7 mg/dL (8.5-10.1); Chloride 89 mmol/L (98-107); Estimated GFR 89.58 (mL/min/1.73m2); Glucose 92 mg/dL (74-106); Magnesium 1.9 mg/dL (1.8-2.4); Potassium 4.7 mmol/L (3.5-5.1); Sodium 126 mmol/L (136-145)
[2022-01-28] MEDS: Tiotropium Bromide-Respimat 10 PUFF INH 2 PUFF IH (07:48)
[2022-01-28] MEDS: Budesonide/Formoterol 80/4.5 6.9 GM 60 PUFF INH IH ×2 (07:48→19:32)
[2022-01-28] MEDS: Acetaminophen 500 MG TAB 1000 MG PO ×3 (08:11→19:31)
[2022-01-28] MEDS: Benzonatate 200 MG CAP PO ×3 (08:11→19:31)
[2022-01-28] MEDS: Cyclobenzaprine 10 MG TAB PO ×3 (08:11→19:31)
[2022-01-28] MEDS: Cholecalciferol (Vitamin D3) 1,000 UNIT TAB 3000 UNITS PO (08:12)
[2022-01-28] MEDS: Sertraline 100 MG TAB PO (08:12)
[2022-01-28] MEDS: Acetylcysteine 600 MG CAP PO (08:12)
[2022-01-28] MEDS: Sucralfate 1 GM TAB PO ×4 (08:12→22:04)
[2022-01-28] MEDS: predniSONE 20 MG TAB 40 MG PO (08:12)
[2022-01-28] MEDS: Roflumilast 500 MCG TAB PO (08:12)
[2022-01-28] MEDS: Amitriptyline 10 MG TAB PO ×2 (08:12→19:31)
[2022-01-28] MEDS: Omeprazole 20 MG CAPCR 40 MG PO ×2 (08:12→19:32)
[2022-01-28] MEDS: Amoxicillin 875/Clav. 125 TAB PO ×2 (08:13→19:31)
[2022-01-28] MEDS: Nystatin 500000 UNITS/5 ML SUSP 5ML CUP PO ×3 (08:13→19:31)
[2022-01-28] MEDS: clonazePAM 1 MG TAB PO ×2 (08:23→22:03)
[2022-01-28] MEDS: Diclofenac 1% Gel 100 GM TUBE TP ×4 (08:23→19:32)
[2022-01-28] MEDS: Celecoxib 200 MG CAP PO ×2 (08:23→19:31)
[2022-01-28 09:40] LABS: Sodium 123 mmol/L (136-145)
--- NOTE | 2022-01-28 10:20 | W.PM.PROGNOT ---
Date of Service Date of service: 01/28/22 Time of Service: 10:21 Assessment and Plan Assessment and plan (1) Hyponatremia: Status: Acute Assessment and plan: Reviewing medications with pharmacy, the only meds that would cause hyponatremia are her chronic medications that, according to her fill records, she has been taking consistently and hyponatremia happened here. Another etiology for this could be her flu + covid-19 vaccinations. SIADH has been reported on pubmed post COVID-19 vaccination. I favor this explanation at this time. Given crackles on the lung exam today, dilutional hyponatremia from water retention from prednisone could be contributing. Will trial a dose of furosemide 20 mg IV and trend sodiums Q6hrs. Will also institute a fluid restriction of 1000 cc/day. Is on an SSRI and on celecoxib, which could cause hyponatremia as well - these are her old meds, though, so unless she is not compliant at home, I doubt that they are the culprits. She appears to be asymptomatic at this time. (2) Acute exacerbation of chronic obstructive pulmonary disease (COPD): Status: Acute Assessment and plan: Improving. Continue prednisone, augmentin. Continue scheduled + prn nebs, spiriva, symbicort, NAC. s/p flu vaccine and covid-19 booster 01/26/22. (3) Acute purulent bronchitis: Status: Suspected Assessment and plan: Sputum c&S w/ Moraxella catarrhalis. Continue augmentin. (4) Epigastric pain: Status: Acute Assessment and plan: ?Gastritis or ulcer, given that it seems to get worse with meals. Heme negative. Continue BID PPI and carafate. Is On NSAIDS - consider stopping. Wound benefit from an outpatient EGD. (5) Chronic pain syndrome: Status: Acute Assessment and plan: Continue current regimen. Scheduled tylenol. Continue flexeril. (6) Dysphagia: Status: Acute Assessment and plan: Zenker's diverticulum on barium swallow. Evaluated by EQUIPMENT SERVICE ASSOCIATE: recommended soft & bite sized solids with thin liquids; meds with extremely thickened fluids/puree. (7) Odynophagia: Status: Acute Assessment and plan: as above (8) DVT prophylaxis: Status: Acute Assessment and plan: SC enoxaparin (9) Discharge planning issues: Status: Acute Assessment and plan: DNR/DNI as per COLST form in 2019. Discharge delayed due to low sodium. Possible discharge home in 48 hrs. Subjective Subjective Interval history since last seen: Ms Stephens states that her R shoulder pain is really bothering her. She thinks she may have slept wrong. Denies dizziness, headache (nothing to get upset over), chest pain. Continues to have a nonproductive cough, SOB unchanged, No CP, no nausea. Not constipated, she states. Complains of numbness in her feet which is intermittent and chronic - happens at home a lot. She is wondering if she is not pinching something in her lower back. Denies drinking a lot of water. States she has never had issues with low sodium before. Denies tick bites. Does not go outside. Does not come in contact with her family's dog - lives on a different floor. Exam Narrative Exam Narrative: General: Pleasant elderly female who is tired and looks weak, A&Ox3, NAD, appearance unchanged from yesterday HEENT: EOMI, MMM Heart: RRR, no m/r/g Lungs:Crackles at B bases, coughing (nonproductive) Abdomen: soft, tender in epigastrium, nondistended Extremities: no edema BLEs. Objective Last Vital Signs Temp 36.5 C 01/28/22 07:30 Pulse 74 01/28/22 07:49 Resp 18 01/28/22 07:49 BP 116/68 01/28/22 07:30 Pulse Ox 96 01/28/22 07:49 Laboratory Results - last 24 hr 01/28/22 01/28/22 05:20 09:05 Sodium 126 L 123 L* Potassium 4.7 Chloride 89 L Carbon Dioxide 32.8 H Anion Gap 4.2 BUN 20 H Creatinine 0.7 Est GFR (CKD-EPI 2020) 89.58 Glucose 92 Calcium 8.7 Magnesium 1.9
[2022-01-28] MEDS: Furosemide 20 MG/2 ML VIAL IVP (10:56)
[2022-01-28] MEDS: Enoxaparin 40 MG/0.4 ML SYR SC (12:40)
--- NOTE | 2022-01-28 14:03 | PDOC.CMPRO ---
- If Service Date Differs Date of service: 01/28/22 Time of Service: 14:03 Care Management Progress Note S/O: Laney remains inpatient and pleasant in interaction, no change to overall plan. CM discussed home health services, and she declined. CM will continue to follow. A: 76 year old female admitted 01/23/22 COPD exacerbation P: Laney will discharge home, and follow up with her community providers, plan of care and transport with family. CM will continue to follow and assess for ongoing discharge concerns.
[2022-01-28 14:14] LABS: Anion Gap 6.9 mmol/L (3-11); BUN 21 mg/dL (7-18); CO2 32.1 mmol/L (21.0-32.0); CREATININE 1.1 mg/dL (0.55-1.02); Calcium 9.1 mg/dL (8.5-10.1); Chloride 86 mmol/L (98-107); Estimated GFR 52.08 (mL/min/1.73m2); Glucose 169 mg/dL (74-106); Potassium 5.1 mmol/L (3.5-5.1); Sodium 125 mmol/L (136-145)
--- NOTE | 2022-01-28 15:51 | CHAPLAIN ---
Laney was resting in bed when I visited. She was pleasant and easily engaged in a conversation. She said Dr. Carmona is being very thorough in checking for things, and she appreciates that. She lives with her son, daughter in law and their five kids, in an apartment above their house. She seems to be well supported by them. Her son is a ripening room operator, formerly at the [employer], and now a airbrush artist technical with the [employer]. He was in [place] last year. 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 She is in touch with sisters in [place] as well.
[2022-01-28 16:00] LABS: Mycoplasma Pneumoniae PCR Negative; Specimen source SPUTUM
[2022-01-28 20:15] LABS: Anion Gap 2.9 mmol/L (3-11); BUN 23 mg/dL (7-18); CO2 33.1 mmol/L (21.0-32.0); CREATININE 1.1 mg/dL (0.55-1.02); Chloride 87 mmol/L (98-107); Estimated GFR 52.08 (mL/min/1.73m2); Glucose 208 mg/dL (74-106); Potassium 5.1 mmol/L (3.5-5.1)
[2022-01-28 20:17] LABS: Sodium 123 mmol/L (136-145)
[2022-01-28] MEDS: Normal Saline 1,000 ML 80 ML IV (20:58)
[2022-01-28] MEDS: Melatonin 3 MG TAB 9 MG PO (22:03)
[2022-01-29] VITALS (16 sets, daily range): BP systolic 93–133; BP diastolic 59–74; PULSE 69–87; RESP 8–26; TEMP 35.5–37; O2SAT 91–98
[2022-01-29 02:29] LABS: Anion Gap 0.6 mmol/L (3-11); BUN 21 mg/dL (7-18); CO2 34.4 mmol/L (21.0-32.0); CREATININE 0.9 mg/dL (0.55-1.02); Calcium 8.7 mg/dL (8.5-10.1); Chloride 90 mmol/L (98-107); Estimated GFR 66.26 (mL/min/1.73m2); Glucose 151 mg/dL (74-106); Potassium 4.5 mmol/L (3.5-5.1); Sodium 125 mmol/L (136-145)
[2022-01-29 07:02] LABS: HCT 42.1 % (36.0-46.0); HGB 14.1 g/dL (11.2-15.7); MCHC 33.5 % (32.0-36.0); MCV 90 fL (80-95); MPV 8.7 fL (8.0-11.0); Platelet Count 218 10^3/uL (130-400); RDW 12.8 % (11.7-14.6); RDW-SD 42.6 fL; WBC 8.84 10^3/uL (4.4-10.8)
[2022-01-29 07:34] LABS: Absolute Neutrophil Count 6.28 10^3/uL (1.2-6.7); Bands % 1
[2022-01-29 07:35] LABS: Absolute Eosinophil Count 0.09 10^3/uL (0.0-0.7); Absolute Lymphocyte Count 1.41 10^3/uL (1.2-3.4); Absolute Monocyte Count 0.97 10^3/uL (0.1-0.8); Atypical Lymphocytes % 2; Diff Comment Manual Differential; Metamyelocytes % 1; RBC Morphology Normal
[2022-01-29 07:48] LABS: Anion Gap 4.2 mmol/L (3-11); BUN 19 mg/dL (7-18); CO2 32.8 mmol/L (21.0-32.0); CREATININE 0.7 mg/dL (0.55-1.02); Calcium 8.7 mg/dL (8.5-10.1); Chloride 91 mmol/L (98-107); Estimated GFR 89.58 (mL/min/1.73m2); Glucose 98 mg/dL (74-106); Magnesium 1.9 mg/dL (1.8-2.4); Potassium 4.2 mmol/L (3.5-5.1); Sodium 128 mmol/L (136-145); Vitamin B12 361 pg/mL (193-986)
[2022-01-29] MEDS: Albuterol/Ipratropium 3 ML UPD VIAL UPD ×4 (08:37→19:36)
[2022-01-29] MEDS: Tiotropium Bromide-Respimat 10 PUFF INH 2 PUFF IH (08:37)
[2022-01-29] MEDS: Budesonide/Formoterol 80/4.5 6.9 GM 60 PUFF INH IH ×2 (08:37→19:37)
[2022-01-29] MEDS: Normal Saline 1,000 ML 80 ML IV ×2 (09:00→21:36)
[2022-01-29] MEDS: Acetylcysteine 600 MG CAP PO (09:01)
[2022-01-29] MEDS: Omeprazole 20 MG CAPCR 40 MG PO ×2 (09:01→19:36)
[2022-01-29] MEDS: Cyanocobalamin 500 MCG TAB 1000 MCG PO (09:01)
[2022-01-29] MEDS: Acetaminophen 500 MG TAB 1000 MG PO ×3 (09:02→19:34)
[2022-01-29] MEDS: Cyclobenzaprine 10 MG TAB PO ×2 (09:02→13:35)
[2022-01-29] MEDS: Cholecalciferol (Vitamin D3) 1,000 UNIT TAB 3000 UNITS PO (09:02)
[2022-01-29] MEDS: Amoxicillin 875/Clav. 125 TAB PO ×2 (09:02→19:36)
[2022-01-29] MEDS: Benzonatate 200 MG CAP PO ×3 (09:02→19:36)
[2022-01-29] MEDS: Sertraline 100 MG TAB PO (09:02)
[2022-01-29] MEDS: Amitriptyline 10 MG TAB PO ×2 (09:03→19:40)
[2022-01-29] MEDS: predniSONE 20 MG TAB 40 MG PO (09:03)
[2022-01-29] MEDS: Roflumilast 500 MCG TAB PO (09:03)
[2022-01-29] MEDS: Celecoxib 200 MG CAP PO ×2 (09:03→19:36)
[2022-01-29] MEDS: Salt Supplement (BUFFERED) TAB 1 TAB PO ×2 (09:03→19:36)
[2022-01-29] MEDS: Sucralfate 1 GM TAB PO ×4 (09:03→21:36)
[2022-01-29] MEDS: clonazePAM 1 MG TAB PO ×2 (09:04→21:36)
[2022-01-29] MEDS: oxyCODONE 5 MG TAB PO ×2 (09:04→21:35)
[2022-01-29] MEDS: Cyanocobalamin 1000 MCG/ML VIAL IM/SC (09:04)
[2022-01-29] MEDS: Nystatin 500000 UNITS/5 ML SUSP 5ML CUP PO ×3 (09:04→19:36)
[2022-01-29] MEDS: Diclofenac 1% Gel 100 GM TUBE TP ×4 (09:23→19:37)
[2022-01-29] MEDS: Enoxaparin 40 MG/0.4 ML SYR SC (11:39)
[2022-01-29 12:25] LABS: Anion Gap 1.5 mmol/L (3-11); BUN 16 mg/dL (7-18); CO2 34.5 mmol/L (21.0-32.0); CREATININE 0.9 mg/dL (0.55-1.02); Calcium 9.1 mg/dL (8.5-10.1); Chloride 93 mmol/L (98-107); Estimated GFR 66.26 (mL/min/1.73m2); Glucose 119 mg/dL (74-106); Potassium 4.7 mmol/L (3.5-5.1); Sodium 129 mmol/L (136-145)
--- NOTE | 2022-01-29 15:04 | W.PM.PROGNOT ---
Date of Service Date of service: 01/29/22 Time of Service: 15:04 Assessment and Plan Assessment and plan (1) Hyponatremia: Status: Acute Assessment and plan: Improving on gentle NS. Reviewing medications with pharmacy, the only meds that would cause hyponatremia are her chronic medications that, according to her fill records, she has been taking consistently and hyponatremia happened here. The patient had been compliant with it. Another etiology for this could be her flu + covid-19 vaccinations. SIADH has been reported on pubmed post COVID-19 vaccination. I favor this explanation at this time based on onset. Is on an SSRI and on celecoxib, which could cause hyponatremia as well - these are her old meds, though, so unless she is not compliant at home, I doubt that they are the culprits. She appears to be asymptomatic at this time. Continue gentle NS. (2) Acute exacerbation of chronic obstructive pulmonary disease (COPD): Status: Acute Assessment and plan: Improving. Continue prednisone, augmentin. Continue scheduled + prn nebs, spiriva, symbicort, NAC. s/p flu vaccine and covid-19 booster 01/26/22. (3) Acute purulent bronchitis: Status: Suspected Assessment and plan: Sputum c&S w/ Moraxella catarrhalis. Continue augmentin. (4) Epigastric pain: Status: Acute Assessment and plan: ?Gastritis or ulcer, given that it seems to get worse with meals. Heme negative. Continue BID PPI and carafate. Is On NSAIDS - consider stopping. Wound benefit from an outpatient EGD. (5) Chronic pain syndrome: Status: Acute Assessment and plan: Continue current regimen. Scheduled tylenol. Add heat. Trial robaxin instead of flexeril. (6) Dysphagia: Status: Acute Assessment and plan: Zenker's diverticulum on barium swallow. Evaluated by VICE PRESIDENT RISK MANAGEMENT: recommended soft & bite sized solids with thin liquids; meds with extremely thickened fluids/puree. (7) Odynophagia: Status: Acute Assessment and plan: as above (8) DVT prophylaxis: Status: Acute Assessment and plan: SC enoxaparin (9) Discharge planning issues: Status: Acute Assessment and plan: DNR/DNI as per COLST form in 2019. Discharge delayed due to low sodium. Anticipate discharge home tomorrow. Subjective Subjective Interval history since last seen: Ms Stephens continues to have significant shoulder and lower back pain. Breathing is better, but not quite back to baseline. Denies dizziness, chest pain, nausea. Reports numbness in B feet still. Exercise makes pain worse. We discussed how she will likely be discharged home tomorrow. Exam Narrative Exam Narrative: General: Pleasant elderly female who looks a little better, A&Ox3, NAD HEENT: EOMI, MMM Heart: RRR, no m/r/g Lungs: CTAB Abdomen: soft, less tender in epigastrium, nondistended Extremities: no edema BLEs. Objective Last Vital Signs Temp 36.7 C 01/29/22 11:31 Pulse 78 01/29/22 13:04 Resp 24 01/29/22 11:31 BP 100/59 L 01/29/22 11:46 Pulse Ox 93 01/29/22 13:04 Laboratory Results - last 24 hr 01/21/22 01/28/22 01/29/22 06:52 19:50 02:10 WBC RBC Hgb Hct MCV MCH MCHC RDW Plt Count MPV Immature Gran % Neutrophils % Band Neutrophils % Lymphocytes % Atypical Lymphs % Monocytes % Eosinophils % Basophils % Metamyelocytes % Nucleated RBC % Absolute Neutrophils Absolute Lymphocytes Absolute Monocytes Absolute Eosinophils Absolute Basophils RBC Morphology Sodium 123 L* 125 L Potassium 5.1 4.5 Chloride 87 L 90 L Carbon Dioxide 33.1 H 34.4 H Anion Gap 2.9 L 0.6 L BUN 23 H 21 H Creatinine 1.1 H 0.9 Est GFR (CKD-EPI 2020) 52.08 66.26 Glucose 208 H 151 H Calcium 9.0 8.7 Magnesium Vitamin B12 M. pneumoniae Source SPUTUM M. pneumoniae (PCR) Negative 01/29/22 01/29/22 01/29/22 06:18 06:18 12:05 WBC 8.84 RBC 4.70 Hgb 14.1 Hct 42.1 MCV 90 MCH 30.0 MCHC 33.5 RDW 12.8 Plt Count 218 MPV 8.7 Immature Gran % 0.0 Neutrophils % 70.0 Band Neutrophils % 1 Lymphocytes % 14.0 Atypical Lymphs % 2 Monocytes % 11.0 Eosinophils % 1.0 Basophils % 0.0 Metamyelocytes % 1 Nucleated RBC % 0.0 Absolute Neutrophils 6.28 Absolute Lymphocytes 1.41 Absolute Monocytes 0.97 H Absolute Eosinophils 0.09 Absolute Basophils 0.00 RBC Morphology Normal Sodium 128 L 129 L Potassium 4.2 4.7 Chloride 91 L 93 L Carbon Dioxide 32.8 H 34.5 H Anion Gap 4.2 1.5 L BUN 19 H 16 Creatinine 0.7 0.9 Est GFR (CKD-EPI 2020) 89.58 66.26 Glucose 98 119 H Calcium 8.7 9.1 Magnesium 1.9 Vitamin B12 361 M. pneumoniae Source M. pneumoniae (PCR)
--- NOTE | 2022-01-29 15:44 | CMPROGNOTE_ITS ---
- If Service Date Differs Date of service: 01/29/22 Time of Service: 15:44 Care Management Progress Note S/O: Per MD< Laney remains inpatient for severe hyponatremia; no change to overall plan. CM discussed home health services, and she declined. CM will continue to follow. A: 76 year old female admitted 01/23/22 COPD exacerbation P: Laney will discharge home, and follow up with her community providers, plan of care and transport with family. CM will continue to follow and assess for on going discharge concerns.
[2022-01-29] MEDS: Methocarbamol 500 MG TAB 1000 MG PO (15:53)
[2022-01-29] MEDS: Melatonin 3 MG TAB 9 MG PO (21:36)
[2022-01-30] VITALS (12 sets, daily range): BP systolic 91–132; BP diastolic 52–70; PULSE 68–94; RESP 8–24; TEMP 35.9–37.2; O2SAT 90–98
[2022-01-30 05:37] LABS: HGB 13.3 g/dL (11.2-15.7); MCH 29.6 pg (27.0-33.0); MCHC 32.4 % (32.0-36.0); MCV 91 fL (80-95); MPV 8.5 fL (8.0-11.0); Platelet Count 227 10^3/uL (130-400); RBC 4.49 10^6/uL (3.93-5.22); RDW-SD 44.1 fL; WBC 9.48 10^3/uL (4.4-10.8)
[2022-01-30 05:55] LABS: Anion Gap 5.7 mmol/L (3-11); BUN 14 mg/dL (7-18); CO2 29.3 mmol/L (21.0-32.0); CREATININE 0.7 mg/dL (0.55-1.02); Calcium 8.3 mg/dL (8.5-10.1); Chloride 98 mmol/L (98-107); Estimated GFR 89.58 (mL/min/1.73m2); Glucose 94 mg/dL (74-106); Magnesium 1.9 mg/dL (1.8-2.4); Potassium 4.7 mmol/L (3.5-5.1); Sodium 133 mmol/L (136-145)
[2022-01-30 06:10] LABS: Absolute Eosinophil Count 0.09 10^3/uL (0.0-0.7); Absolute Lymphocyte Count 1.14 10^3/uL (1.2-3.4); Absolute Monocyte Count 0.85 10^3/uL (0.1-0.8); Absolute Neutrophil Count 7.11 10^3/uL (1.2-6.7); Atypical Lymphocytes % 5; Metamyelocytes % 2; Myelocytes % 1
[2022-01-30 06:35] LABS: Diff Comment Manual Differential
[2022-01-30] MEDS: Celecoxib 200 MG CAP PO ×2 (07:59→20:16)
[2022-01-30] MEDS: Omeprazole 20 MG CAPCR 40 MG PO ×2 (08:00→20:17)
[2022-01-30] MEDS: Benzonatate 200 MG CAP PO ×3 (08:00→20:10)
[2022-01-30] MEDS: Sertraline 100 MG TAB PO (08:00)
[2022-01-30] MEDS: Roflumilast 500 MCG TAB PO (08:00)
[2022-01-30] MEDS: Cyanocobalamin 500 MCG TAB 1000 MCG PO (08:00)
[2022-01-30] MEDS: Acetaminophen 500 MG TAB 1000 MG PO ×3 (08:00→20:10)
[2022-01-30] MEDS: Cholecalciferol (Vitamin D3) 1,000 UNIT TAB 3000 UNITS PO (08:00)
[2022-01-30] MEDS: Amitriptyline 10 MG TAB PO ×2 (08:00→20:10)
[2022-01-30] MEDS: Sucralfate 1 GM TAB PO ×4 (08:00→22:00)
[2022-01-30] MEDS: Acetylcysteine 600 MG CAP PO (08:01)
[2022-01-30] MEDS: Amoxicillin 875/Clav. 125 TAB PO (08:01)
[2022-01-30] MEDS: predniSONE 20 MG TAB 40 MG PO (08:01)
[2022-01-30] MEDS: Nystatin 500000 UNITS/5 ML SUSP 5ML CUP PO ×3 (08:01→20:15)
[2022-01-30] MEDS: Salt Supplement (BUFFERED) TAB 1 TAB PO ×2 (08:01→20:10)
[2022-01-30] MEDS: Diclofenac 1% Gel 100 GM TUBE TP ×4 (08:02→20:11)
[2022-01-30] MEDS: clonazePAM 1 MG TAB PO ×2 (08:09→21:46)
[2022-01-30] MEDS: oxyCODONE 5 MG TAB PO ×2 (08:09→21:47)
[2022-01-30] MEDS: Albuterol/Ipratropium 3 ML UPD VIAL UPD ×4 (08:26→20:11)
[2022-01-30] MEDS: Budesonide/Formoterol 80/4.5 6.9 GM 60 PUFF INH IH ×2 (08:27→20:11)
--- NOTE | 2022-01-30 08:33 | IN_ITS ---
PT Notes Visit Reasons: COPD Exacerbation Inpatient Physical Therapy Evaluation Date: January 30, 2022 Referring Doctor: Dr. Marti Carmona PT Orders: PT CONSULT: Limited ability Precautions: Standard, fall precautions Patient Profile/Admitting Diagnosis: 76 yr old female, former smoker (50 pack yr; quit 8 yrs ago), COPD (has home oxygen but uses prn particularly at night) who has had cough, dyspnea, pleuritic CP right sided, as well as her shoulders and hips, who was treated for COPD exacerbation/bronchitis w/ Ceftin x 5 days after a tele consult w/ her PCP, Dr. Rahman which occurred on 01/06/22. Patient stated symptomatic improvement in her cough after the first couple days of the Ceftin but over the past couple days has progressively gotten worse. PMHX: PFSH All Active Problems? GERD (gastroesophageal reflux disease) (Chronic) Chronic obstructive pulmonary disease (Chronic) Chronic pain syndrome (Acute 12/15/16) CONTROLLED SUBSTANCE AGREEMENT 10/03/18 Lumbosacral spondylosis without myelopathy (Acute) Fibromyalgia (Acute) Fall (Acute) Low back pain (Acute) Fever (Acute) Acute purulent bronchitis (Acute) Discharge planning issues (Acute) Acute exacerbation of chronic obstructive pulmonary disease (COPD) (Acute) T12 compression fracture (Acute) Ongoing leg pain (Acute) continue nSaid prn tramadol see surgeon next week consider topical analgesic on surrounding skinHemoptysis (Acute) History of cataract removal with insertion of prosthetic lens (Acute 06/05/15) History of chest tube placement (Acute) Status post appendectomy (Acute) Status post laminectomy (Acute) Pain from implanted hardware (Chronic 10/30/18) S/P Hardware removalBacterial pneumonia (Acute 11/23/13) Chronic anxiety (Chronic 06/22/13) Chronic emphysema syndrome (Chronic) Chronic pain in right shoulder (Chronic 11/20/13) Moderate protein malnutrition (Chronic 11/20/13) Contusion of right knee, initial encounter (Acute) Neck pain (Acute) Irritable bowel syndrome with diarrhea (Chronic) Cervical neck pain with evidence of disc disease (Chronic 06/22/13) History of tobacco abuse (Chronic) Anxiety (Chronic) LLL pneumonia (Acute ~03/30/18) Medical History? DNI (do not intubate) DNR (do not resuscitate) POLST (Physician Orders for Life-Sustaining Treatment) Surgical History? Appendectomy CHEST TUBE Extraction of cataract 06/05/15; LEFT EYE; DR. ERAZO/O section Hx of hysterectomy LAMINECTOMY CERVICAL SPINE Social History/Home Situation: Patient lives in [id number] apartment with her daughter and grandchildren. 5 steps with railing upon entry. No longer driving. Patient states she is independent in her own home. Current Functional Limitations: Community ambulation Equipment Owned/DME: 2 single-point canes, four-wheel walker Subjective: Patient states that her shoulders and low back are sore. She says this is a chronic issue. Is looking forward to getting up out of bed. Objective: General Observation: Patient laying in bed with head of bed at 50 degrees. Very pleasant. On telemetry, IV port in left forearm and supplemental oxygen 2 L via nasal cannula. Mental Status: Alert and oriented x3 Pain: 5/10 bilateral shoulders, sick/10 low back. Denies any radiculopathy in either lower extremity. Vital Signs: 98% O2 saturation on 2 L O2. Does desaturate to 88% following ambulation. This restored to 94% following 2 minutes of pursed lip breathing with 2 L supplemental oxygen. Blood pressure 121/70. ROM: Right Upper Extremity: Glenohumeral joint flexion 125 degrees active assisted 135 with pain at endrange, abduction 110 degrees actively, elbow flexion and extension within normal limits. Able to make fist approximating fingertips to palmar crease. Left Upper Extremity: Glenohumeral joint flexion 120 degrees active 125 active assisted with pain at endrange, abduction 100 degrees actively, elbow flexion and extension within normal limits. Approximate fingertips to palmar crease. Right Lower Extremity: Hip flexion and abduction actively within functional limits. Knee flexion 105 degrees with pain, extension lacks 5 degrees. Ankle range of motion within functional limits Left Lower Extremity: Hip flexion and abduction within functional limits actively. Knee flexion 120 minimal pain, extension 0. Ankle range of motion within functional limits. Strength: Right Upper Extremity: Glenohumeral joint flexion and abduction 4 -/5 with pain, tricep 4/5, bicep 4/5, good in home nanny Left Upper Extremity: Glenohumeral joint flexion 4/5, abduction 4 -/5 with pain, tricep 4/5, bicep 4/5, good in home nanny Right Lower Extremity: Patient perform straight leg raises 0 degree lag. Hip flexion 4/5, quad 4 -/5, hamstring 4 -/5, ankle inversion, eversion, plantarflexion and dorsiflexion 4/5 Left Lower Extremity: Patient form straight leg raise with 0 degree lag. Hip flexion 4/5, quad 4 -/5, hamstrings 4 -/5, ankle inversion, eversion, planta rflexion and dorsiflexion 4/5 Sensation: Reported intact sensation light touch bilateral lower extremities Bed Mobility/Transfers: Bed?sit: Head of bed 45 degrees independent sitting edge of bed. Bed?stand: Contact-guard x1 to front wheeled walker. Verbal cues to avoid using walker to help assist stand. Stand?bed: From front wheeled walker with supervision. Gait: Ambulate 75 feet with front wheel walker contact-guard with 1 rest break retirement standing. Desaturates to 88% following ambulation. O2 saturation recovers to 94% following 2 minutes of pursed lip breathing on 2 L oxygen via nasal cannula. Patient positioned back in bed following ambulation. Balance: Static Sitting: Good Dynamic Sitting: Good Static Standing: Fair Dynamic Standing: Fair Special Tests: Mobility Limitations Standardized Measure [facility] AM-PAC 6 clicks Basic Mobility Inpatient Short Form: Raw Score: 20 Standardized Score: [] CMS Score: 36% Informed Consent/Education: Patient instructed in purpose of PT consult and p ashley of care. Assessment: Patient is a 76 year old female referred to physical therapy services with the diagnosis of acute COPD exacerbation. Patient presents with clinical signs and symptoms consistent with above diagnosis, as demonstrated by the following impairment level findings: Mobility and strength deficits, lower extremity weakness and fair balance with dynamic activities. Impairments are contributing to the following functional limitations: AMPAC score 36%. Patient is assessed as a moderate complexity based on the following 61336 History: See multiple comorbidities listed above Examination: See assessment and objective findings Presentation: Evolving Decision Making: Moderate, AMPAC 35% disability Goals: Goals X1 week 1. Supine-Sit: Independent 2. Sit-Supine: Independent 3. Sit-Stand: Independent 4. Stand-Sit : Independent 5. Bed-Chair: Independent 6. Chair-Bed: Independent 7. Gait: Patient ambulates 300 feet with use of front wheel walker with SBA 8. Stairs: Independent with performing 5 stairs with railing with standby assist [] Plan of Care/Treatment Plan: 1-2x/day, 7 days/week x 1 week. Plan of care has been reviewed with the PHARMACEUTICAL SALESPERSON providing the service under Physical Therapy direction. Initiate Physical Therapy intervention for strengthening, bed mobility, transfers, gait, stairs, balance training, use of assistive device. DISCHARGE RECOMMENDATIONS: X Home with no services : When cleared medically. TREATMENT CODE/TIME: 22984 direct one-on-one care initial evaluation [id number] Thank you for this referral. Ross Liriano PT, DPT Disclaimer: This note was created using [employer] voice recognition software. It was reviewed for major content. However, there may be multiple small discrepancies and errors due to the voice recognition aspects of the software.
[2022-01-30] MEDS: Normal Saline 1,000 ML 80 ML IV (10:16)
--- NOTE | 2022-01-30 10:58 | PGE_ITS ---
Date of Service Date of service: 01/30/22 Time of Service: 10:58 Assessment and Plan Assessment and plan (1) Hyponatremia: Status: Acute Assessment and plan: Improving. D/c NS and monitor sodium, ensuring it does not go down. 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 SIADH has been reported on pubmed post COVID-19 vaccination. Is on an SSRI and on celecoxib, which could cause hyponatremia as well - these are her old meds, though, so unless she is not compliant at home, I doubt that they are the culprits. She appears to be asymptomatic at this time. (2) Acute exacerbation of chronic obstructive pulmonary disease (COPD): Status: Acute Assessment and plan: Improving. Continue prednisone. D/c Augmentin. Continue scheduled + prn nebs, spiriva, symbicort, NAC. s/p flu vaccine and covid-19 booster 01/26/22. (3) Acute purulent bronchitis: Status: Suspected Assessment and plan: Sputum c&S w/ Moraxella catarrhalis. D/c augmentin as clinically resolved. (4) Epigastric pain: Status: Acute Assessment and plan: ?Gastritis or ulcer, given that it seems to get worse with meals. Heme negative. Continue BID PPI and carafate. Is On NSAIDS - consider stopping. Wound benefit from an outpatient EGD. (5) Chronic pain syndrome: Status: Acute Assessment and plan: Continue current regimen. Scheduled tylenol, on celecoxib, robaxin, elavil. Add gabapentin, prn morphine Alternate heat/ice. PT consulted. (6) Dysphagia: Status: Acute Assessment and plan: Zenker's diverticulum on barium swallow. Evaluated by INSURANCE SALES REPRESENTATIVE: recommended soft & bite sized solids with thin liquids; meds with extremely thickened fluids/puree. (7) Odynophagia: Status: Acute Assessment and plan: as above (8) DVT prophylaxis: Status: Acute Assessment and plan: SC enoxaparin (9) Discharge planning issues: Status: Acute Assessment and plan: DNR/DNI as per COLST form in 2019. Discharge delayed due to low sodium and uncontrolled pain. Anticipate discharge home tomorrow. Subjective Subjective Interval history since last seen: C/o shoulder and back pain. Breathing better - back to baseline. Does report nasal congestion. Denies dizziness, chest pain, nausea. Continues to report epigastric discomfort. Reports her chronic diarrhea. Exam Narrative Exam Narrative: General: Pleasant elderly female who looks a little better, A&Ox3, NAD HEENT: EOMI, MMM Heart: RRR, no m/r/g Lungs: CTAB Abdomen: soft, less tender in epigastrium, nondistended Extremities: no edema BLEs. Objective Last Vital Signs Temp 36.9 C 01/30/22 07:47 Pulse 68 01/30/22 07:47 Resp 20 01/30/22 08:26 BP 121/70 01/30/22 07:47 Pulse Ox 98 01/30/22 07:47 Laboratory Results - last 24 hr 01/29/22 01/30/22 01/30/22 12:05 05:16 05:16 WBC 9.48 RBC 4.49 Hgb 13.3 Hct 41.0 MCV 91 MCH 29.6 MCHC 32.4 RDW 13.0 Plt Count 227 MPV 8.5 Immature Gran % 0.0 Neutrophils % 75.0 Lymphocytes % 7.0 Atypical Lymphs % 5 Monocytes % 9.0 Eosinophils % 1.0 Basophils % 0.0 Metamyelocytes % 2 Myelocytes % 1 Nucleated RBC % 0.0 Absolute Neutrophils 7.11 H Absolute Lymphocytes 1.14 L Absolute Monocytes 0.85 H Absolute Eosinophils 0.09 Absolute Basophils 0.00 Sodium 129 L 133 L Potassium 4.7 4.7 Chloride 93 L 98 Carbon Dioxide 34.5 H 29.3 Anion Gap 1.5 L 5.7 BUN 16 14 Creatinine 0.9 0.7 Est GFR (CKD-EPI 2020) 66.26 89.58 Glucose 119 H 94 Calcium 9.1 8.3 L Magnesium 1.9
[2022-01-30] MEDS: Methocarbamol 500 MG TAB 1000 MG PO (11:19)
[2022-01-30] MEDS: Enoxaparin 40 MG/0.4 ML SYR SC (11:20)
[2022-01-30] MEDS: Gabapentin 100 MG CAP PO ×2 (13:52→20:10)
--- NOTE | 2022-01-30 14:29 | NUR.NOTE ---
Nursing Note: This RN has been working with Lilli Locke LPN today and agrees with all care and documentation of care.
[2022-01-30 15:03] LABS: C Diff PCR Negative (Negative)
[2022-01-30] MEDS: Normal Saline Flush 10 ML SYR IVP (20:12)
[2022-01-30] MEDS: Melatonin 3 MG TAB 9 MG PO (21:46)
[2022-01-31 03:07] VITALS: BP 120/72; PULSE 73; RESP 18; TEMP 36; O2SAT 94
[2022-01-31] MEDS: Diclofenac 1% Gel 100 GM TUBE TP ×2 (07:44→11:46)
[2022-01-31] MEDS: Gabapentin 100 MG CAP PO ×2 (07:44→14:31)
[2022-01-31] MEDS: Nystatin 500000 UNITS/5 ML SUSP 5ML CUP PO ×2 (07:44→14:31)
[2022-01-31] MEDS: Acetaminophen 500 MG TAB 1000 MG PO ×2 (07:45→14:31)
[2022-01-31] MEDS: Omeprazole 20 MG CAPCR 40 MG PO (07:45)
[2022-01-31] MEDS: Sertraline 100 MG TAB PO (07:45)
[2022-01-31] MEDS: clonazePAM 1 MG TAB PO (07:45)
[2022-01-31] MEDS: Cholecalciferol (Vitamin D3) 1,000 UNIT TAB 3000 UNITS PO (07:45)
[2022-01-31] MEDS: Celecoxib 200 MG CAP PO (07:45)
[2022-01-31] MEDS: Benzonatate 200 MG CAP PO ×2 (07:45→14:31)
[2022-01-31] MEDS: oxyCODONE 5 MG TAB PO (07:46)
[2022-01-31] MEDS: Acetylcysteine 600 MG CAP PO (07:46)
[2022-01-31] MEDS: predniSONE 20 MG TAB 40 MG PO (07:46)
[2022-01-31] MEDS: Cyanocobalamin 500 MCG TAB 1000 MCG PO (07:46)
[2022-01-31] MEDS: Sucralfate 1 GM TAB PO ×2 (07:46→11:46)
[2022-01-31] MEDS: Roflumilast 500 MCG TAB PO (07:46)
[2022-01-31] MEDS: Salt Supplement (BUFFERED) TAB 1 TAB PO (07:46)
[2022-01-31] MEDS: Amitriptyline 10 MG TAB PO (07:46)
[2022-01-31 07:50] VITALS: O2SAT 98
[2022-01-31 08:30] VITALS: O2SAT 90
[2022-01-31 08:38] VITALS: PULSE 80; RESP 18; RESP 8; O2SAT 96
[2022-01-31] MEDS: Albuterol/Ipratropium 3 ML UPD VIAL UPD (08:38)
[2022-01-31] MEDS: Budesonide/Formoterol 80/4.5 6.9 GM 60 PUFF INH IH (08:39)
[2022-01-31 08:48] VITALS: BP 132/78; PULSE 78; RESP 16; TEMP 36.3; O2SAT 98
[2022-01-31] MEDS: Enoxaparin 40 MG/0.4 ML SYR SC (11:46)
--- NOTE | 2022-01-31 11:53 | W.PM.DS.N ---
Date of service: 01/31/22 Time of Service: 11:53 DS: Diagnosis Discharge Diagnosis (1) Hyponatremia: Status: Acute (2) Acute exacerbation of chronic obstructive pulmonary disease (COPD): Status: Acute (3) Acute purulent bronchitis: Status: Suspected (4) Epigastric pain: Status: Acute (5) Chronic pain syndrome: Status: Acute (6) Dysphagia: Status: Acute (7) Odynophagia: Status: Acute Discharge Plan Disposition Patient Disposition: HOME Condition: Serious Discharge Details Reason For Visit: COPD Exacerbation Admit Date/Time: 01/23/22 08:21 Admit Provider: Jimbo Reyes Attending Provider: Jimbo Reyes Primary Care Provider: Ralph Rahman Hospital Course Hospital Course: This is a 76 year old with history of copd who was recently treated outpatient for an exacerbation, who presented to the ED is shortness of breath. work up did not reveal pneumonia, she had increasing oxygen requirements and was initially referred to observation. Her sputum grew Moraxella catarrhalis and was treated with augmentin. hospital course complicated by hyponatremia requiring treatment. She had just received her covid booster and it is suspected etiology of SIADH due to covid-19 vaccinations.?SIADH has been reported on pubmed post COVID-19 vaccination. She is on an SSRI and on celecoxib, which could cause hyponatremia as well - these are her old meds, so it is not expected to be the cause as sodium was normal on admission. she improved with repletion and is back to her baseline. she is stable and ready for discharge to home. discussed with DR Penaloza. Home Meds and New Rx's Prescriptions: New gabapentin 100 mg Capsule 100 mg PO TID Qty: 90 0RF sucralfate 1 gram Tablet 1 g PO AC & HS Qty: 120 0RF Thermotabs 287-180-15 mg Tablet 1 tab PO BID Qty: 60 0RF Continued (DME) Oxygen Tank See Rx Instructions .ROUTE .MEDSUPPLY Qty: 1 Rx Instructions: As directed celecoxib 200 mg capsule 200 mg PO BID Qty: 60 5RF omeprazole 40 mg capsule,delayed release(DR/EC) 40 mg PO DAILY Qty: 30 5RF PreserVision AREDS-2 250-90-40-1 mg Capsule 2 cap PO DAILY albuterol sulfate [Proventil HFA] 90 mcg/actuation HFA aerosol inhaler 2 puff IH Q6H PRN (Reason: shortness of breath or wheezing) Qty: 6.7 3RF amitriptyline 10 mg tablet 10 mg PO BID Qty: 180 3RF Rx Instructions: dose increase 08/22/20 Daliresp 500 mcg tablet 500 mcg PO DAILY Qty: 90 3RF acetylcysteine 600 mg capsule See Rx Instructions .ROUTE .COMPLEX Qty: 90 3RF Dose Instruction: TAKE ONE CAPSULE BY MOUTH EVERY DAY Rx Instructions: TAKE ONE CAPSULE BY MOUTH EVERY DAY Trelegy Ellipta 100-62.5-25 mcg blister with device 1 inh IH DAILY Qty: 28 11RF sertraline 100 mg tablet 100 mg PO DAILY Qty: 90 3RF clonazepam 1 mg tablet 1 mg PO BID PRN (Reason: anxiety) Qty: 60 2RF acetaminophen 500 mg tablet 1,000 mg PO Q8H PRN (Reason: pain) Qty: 90 8RF Salonpas 1 EACH adhesive patch,medicated 1 ea Topical .DAILY X 12 HOURS naloxone [Narcan] 4 mg/actuation spray,non-aerosol 1 spray KELL Q2-3M PRN (Reason: opioid overdose) Qty: 2 0RF Rx Instructions: spray 1 dose into ONE nostril; alternate nostrils w each dose until help arrives cholecalciferol (vitamin D3) [Vitamin D3] 2,000 unit Tablet 3,000 unit PO DAILY lidocaine [Lidoderm] 5 % Adhesive Patch,Medicated 2 patch topical QPM Qty: 30 0RF Discontinued cefuroxime axetil 500 mg tablet 500 mg PO BID Qty: 10 0RF Discharge Instructions Instructions: Hyponatremia (DC), Chronic Lung Disease and Infection Prevention (DC) Stand Alone Forms: Nursing Discharge Form Referrals: Ralph Rahman MD [Primary Care Provider] - (Please call Tuesday to make a follow up appointment for 1-2 weeks.) Activity:: Activity as Tolerated Equipment/Supplies:: No Equipment Needed Diet:: As Tolerated Discharge Orders Discharge Orders: Discharge Order (Routine); Ordered 01/31/22 Ordered By: Danielle Johnson Discharge Data Discharge Date/Time-TO BE ENTERED AT DEPARTURE: 01/31/22 14:55 DS: Summary Time Spent with Patient providing and/or coordinating discharge services: Greater than 30 minutes Status at Discharge Functional status at discharge: independent ambulation Overall status at discharge: patient is progressing back to baseline Mental Status: mental status grossly normal Speech and Movement: speech and movement normal Mood: congruent mood Affect: normal affect Exam Const General: cooperative, acute distress mild and respiratory and ill appearing chronically Nutritional Appearance: thin Orientation: alert, awake and oriented x3 HENMT Head: normal to inspection, normocephalic and atraumatic Mouth: oral mucosae normal Resp Auscultation: diminished lung sounds bilaterally Cardio Rate: regular rate Rhythm: regular rhythm GI Inspection: normal to inspection Palpation: soft Auscultation: normal bowel sounds Skin General skin exam: no rashes or lesions noted Neuro General: patient alert, patient awake, patient oriented x3 and moves all extremities Extrem General: normal to inspection, full ROM and no pedal edema Psych Mental Status: mental status grossly normal Speech and Movement: speech and movement normal Mood: congruent mood Affect: normal affect DS: Data Vitals/I&O Vitals and I&O: Vital Signs Temperature 36.3 C L 01/31/22 08:48 Temperature Source Tympanic 01/31/22 08:48 Pulse 78 01/31/22 08:48 Pulse Rhythm Regular 01/31/22 07:45 Respiratory Rate 16 01/31/22 08:48 Respiratory Effort Non-Labored 01/31/22 07:45 Respiratory Depth Normal 01/31/22 07:45 Respiratory Pattern Normal 01/31/22 07:45 Blood Pressure 132/78 01/31/22 08:48 Blood Pressure Position Sitting 01/21/22 06:36 Pulse Oximetry 98 01/31/22 08:48 Oxygen Delivery Method Nasal Cannula 01/31/22 08:48 Oxygen Flow Rate 2 01/31/22 08:48 Pain Level 2 01/31/22 11:14 Comment 01/31/22 08:30 Intake & Output 01/30/22 01/30/22 01/31/22 11:59 23:59 11:59 Intake Total 1336 / 1336 240 / 240 Output Total 600 / 600 Balance 1336 / 1336 -360 / -360 Weight 58.5 kg Intake: IV 1096 / 1096 Oral 240 / 240 240 / 240 Output: Urine 600 / 600 Other: Urine Color Yellow Yellow Yellow Urine Appearance Clear Clear Urine Odor Normal Normal Comment Void x1 in the bedside commode. Mixed with stool. Void x1 in the toilet. Stool Occult Blood Negative Stool Size Moderate Small Stool Characteristics Soft Soft Liquid Formed Brown Brown Voiding Methods Bedside Commode Toilet Toilet Data Completed and Pending Labs on day of discharge: Labs from last 24 hours 01/30/22 13:18 Stl C.difficile Tox PCR Negative PFSH All Active Problems (Updated 01/28/22 @ 10:24 by Marti Carmona MD) Hyponatremia (Acute) Epigastric pain (Acute) Discharge planning issues (Acute) DVT prophylaxis (Acute) COPD with acute exacerbation (Acute) Acute bronchitis (Acute) Odynophagia (Acute) Dysphagia (Acute) GERD (gastroesophageal reflux disease) (Chronic) Chronic obstructive pulmonary disease (Chronic) Chronic pain syndrome (Acute 12/15/16) CONTROLLED SUBSTANCE AGREEMENT 10/03/18 Lumbosacral spondylosis without myelopathy (Acute) Fibromyalgia (Acute) Fall (Acute) Low back pain (Acute) Fever (Acute) Discharge planning issues (Acute) Acute exacerbation of chronic obstructive pulmonary disease (COPD) (Acute) T12 compression fracture (Acute) Ongoing leg pain (Acute) continue nSaid prn tramadol see surgeon next week consider topical analgesic on surrounding skin Hemoptysis (Acute) History of cataract removal with insertion of prosthetic lens (Acute 06/05/15) History of chest tube placement (Acute) Status post appendectomy (Acute) Status post laminectomy (Acute) Pain from implanted hardware (Chronic 10/30/18) S/P Hardware removal Bacterial pneumonia (Acute 11/23/13) Chronic anxiety (Chronic 06/22/13) Chronic emphysema syndrome (Chronic) Chronic pain in right shoulder (Chronic 11/20/13) Moderate protein malnutrition (Chronic 11/20/13) Contusion of right knee, initial encounter (Acute) Neck pain (Acute) Irritable bowel syndrome with diarrhea (Chronic) Cervical neck pain with evidence of disc disease (Chronic 06/22/13) History of tobacco abuse (Chronic) Anxiety (Chronic) LLL pneumonia (Acute ~03/30/18) Medical History (Updated 01/28/22 @ 10:24 by Marti Carmona MD) DNI (do not intubate) DNR (do not resuscitate) POLST (Physician Orders for Life-Sustaining Treatment) Surgical History Appendectomy CHEST TUBE Extraction of cataract 06/05/15; LEFT EYE; DR. ARAUZ H/O section Hx of hysterectomy LAMINECTOMY CERVICAL SPINE Family History Mother , at age 89, cardiac problems No problems noted. Father , at 81 Cancer Throat cancer Brother , at 71 Colon cancer Sister Diabetes DM2 Sister Diabetes DM2 Son No problems noted. Social History Smoking/Tobacco Use Status: Former Tobacco Use Quit Date: 09/16/13 Pack-years: 50 Smoking risk assessment performed?: Yes Alcohol Intake: former Year quit: 1979 Drug use: Never Substance use type: does not use Household members: none Housing: apartment Other: living along; missing her family; lonely Do you feel safe at home: Yes Do you feel safe in your relationship?: No Additional Social history: 16 years ago. Originally from [place], moved here to be near son and grand children. On disability due to chronic back pain. 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 Approximate 75 pack year history of tobacco. No alcohol or illicit drug use endorsed.
[2022-01-31 11:55] VITALS: BP 105/62; PULSE 65; RESP 18; TEMP 36.7; O2SAT 93
--- NOTE | 2022-01-31 12:08 | PT.INTREAT ---
PT Notes Visit Reasons: COPD Exacerbation Date: 01/31/2022 PRECAUTIONS: Activity as tolerated, Fall SUBJECTIVE: Pt pleasant and agreeable to therapy. Pt reports that she is having 10/10 for abdominal pain but request to stand and walk around despite the pain. OBJECTIVE:? PAIN: 10/10 abdominal pain ?GAIT? Assistive Device: FWW? Weight bearing: Full Assist: SBA ? Distance:?150'? Deviation: slow, decreased step height and step length? ASSESSMENT: Patient tolerated session well, reports that the abdominal pain has receded and is now only 5/10. PLAN: Continue with gait and transfer training and global strengthening, as tolerated, for improved mobility. TREATMENT CODE/TIME: 25 minutes; 90977 (10:30)
--- NOTE | 2022-01-31 14:53 | PDOC.CMDIS ---
- If Service Date Differs Date of service: 01/31/22 Time of Service: 14:53 LACE Index Scoring Tool - Questions: Length of Stay (in days): 7 - 13 Acuity (Admit via E.D.?): Yes Comorbidities: Chronic Pulmonary Disease E.D. Visits: 1 - Answers: Total Score: 11 Risk of Readmission: High Risk Care Management Discharge Reason for Hospitalization: Acute Exacerbation of COPD Discharge Plan: Laney is discharged home via private vehicle with family. New RX's are transmitted to [facility]. Laney will call [facility] on Tuesday to schedule a Hosp. F/U appointment for 1-2 weeks. Laney defers [facility] services at the time of this discharge. Patient/Family Education Needs: Review discharge instructions, limitations, medications and plan to follow up with PCP in 1-2 weeks. Discuss ask me three.
== END 2022-01-31 14:55 | disposition home or self-care (01) | DRG 191 ==
LOC: ER 08:12 → MS 09:42
PROVIDERS: Internal Medicine; Admitting Provider Internal Medicine; Emergency Provider Student in an Organized Health Care Education/Training Program; PCP Family Medicine; Visit Provider Internal Medicine
DX: J44.0 Chronic obstructive pulmonary disease with (acute) lower respiratory infection (principal); J44.1 Chronic obstructive pulmonary disease with (acute) exacerbation; E87.1 Hypo-osmolality and hyponatremia; E44.0 Moderate protein-calorie malnutrition; G89.4 Chronic pain syndrome; J20.9 Acute bronchitis, unspecified; Z87.891 Personal history of nicotine dependence; K21.9 Gastro-esophageal reflux disease without esophagitis; M47.817 Spondylosis without myelopathy or radiculopathy, lumbosacral region; F41.9 Anxiety disorder, unspecified; K58.0 Irritable bowel syndrome with diarrhea; Z68.20 Body mass index [BMI] 20.0-20.9, adult; Z66 Do not resuscitate; M50.30 Other cervical disc degeneration, unspecified cervical region; B96.89 Other specified bacterial agents as the cause of diseases classified elsewhere; R13.10 Dysphagia, unspecified; R42 Dizziness and giddiness; R10.13 Epigastric pain; K22.5 Diverticulum of esophagus, acquired; M25.511 Pain in right shoulder; T50.B95A Adverse effect of other viral vaccines, initial encounter
CPT/HCPCS: 36415; 80048; 80053; 84145; 87040; 87077; 87449; 87493; 87635; 90662; 91312; 92610; 93005; 94618; 94640; 96365; 96375; 97162; 97530; 99285; J1650; 71045; 74221; 82607; 83605; 83735; 84295; 85025; 85049; 87070; 87205; 87581; 87899; 93010; 94667; 99219; 99225; 99232; 99233; 99239; G0378; J0456; J0696; J1941; J2930; J3420; J7512; J7620

== ENCOUNTER 2022-02-12 18:12 | Inpatient (IN) | payer MEDICARE, MEDICAID, SELFPAY ==
--- NOTE | 2022-02-12 18:00 | RT.EKG_ITS ---
APPROVED REPORT Exam: Resting ECG Reason for Exam: Dyspnea Patient Location: E HR:114 bpm ECG Measurements Heart Rate 114 AXIS [place] 161 P 89 QRSd 81 QRS 72 QT 307 T 80 QTc 422 Conclusion Sinus tachycardia...rate> 99 Right atrial enlargement...P>0.25mV 2 lds or<-0.24mV aVR/aVL Nonspecific T abnrm, anterolateral leads...T <-0.10mV, I aVL V2-V6 Physician: no stemi
[2022-02-12 18:11] VITALS: PULSE 115; RESP 18; TEMP 37.9; O2SAT 96
--- NOTE | 2022-02-12 18:15 | DI.RAD_ITS ---
Exam(s) XR PORTABLE CHEST AP EXAM: XR PORTABLE CHEST AP CLINICAL HISTORY: sob, cough, fever, r/o pneumonia TECHNIQUE: 2D digital imaging was performed of the chest. Two images were obtained. AP views were obtained. COMPARISON: CR XR PORTABLE CHEST AP from 01/21/2022 CR,RF RF BARIUM SWALLOW from 01/25/2022 FINDINGS: MEDIASTINUM: Normal. HEART: Normal. PULMONARY VASCULATURE: Normal. LUNGS: The lungs are hyperinflated consistent with underlying COPD. There are increased lung marking s in the bases right greater than left which have a similar appearance and likely reflect parenchymal scarring. They do appear to be slightly increased in the right lung base. PLEURAL SPACE: No pleural effusion or pneumothorax. BONE:Within normal limits for the patient's age. OTHER FINDINGS:Normal. IMPRESSION: 1. COPD and chronic scarring. 2. Mild increased lung markings in the right lung base. A superimposed pneumonia or atelectasis prashanth ot be excluded. DATA REPOSITORY: RADIATION DOSE DELIVERED:
[2022-02-12 18:17] VITALS: RESP 22
--- NOTE | 2022-02-12 18:34 | ED.GENADUL_ITS ---
Discharge Plan Disposition Patient Disposition: [facility] INPATIENT Condition: Stable Discharge Details Chief Complaint: SOB Clinical Impression: Hypoxemia, Hospital-acquired bacterial pneumonia Primary Care Provider: Ralph Rahman ED Provider: Filiberto Boone Home Meds and New Rx's Prescriptions: No Action (DME) Oxygen Tank See Rx Instructions .ROUTE .MEDSUPPLY Qty: 1 Rx Instructions: As directed celecoxib 200 mg capsule 200 mg PO BID Qty: 60 5RF omeprazole 40 mg capsule,delayed release(DR/EC) 40 mg PO DAILY Qty: 30 5RF PreserVision AREDS-2 250-90-40-1 mg Capsule 2 cap PO DAILY buprenorphine [Butrans] 5 mcg/hour patch weekly 1 patch transdermal Q7D Qty: 4 0RF albuterol sulfate [Proventil HFA] 90 mcg/actuation HFA aerosol inhaler 2 puff IH Q6H PRN (Reason: shortness of breath or wheezing) Qty: 6.7 3RF amitriptyline 10 mg tablet 10 mg PO BID Qty: 180 3RF Rx Instructions: dose increase 08/22/20 Daliresp 500 mcg tablet 500 mcg PO DAILY Qty: 90 3RF acetylcysteine 600 mg capsule See Rx Instructions .ROUTE .COMPLEX Qty: 90 3RF Dose Instruction: TAKE ONE CAPSULE BY MOUTH EVERY DAY Rx Instructions: TAKE ONE CAPSULE BY MOUTH EVERY DAY Trelegy Ellipta 100-62.5-25 mcg blister with device 1 inh IH DAILY Qty: 28 11RF sertraline 100 mg tablet 100 mg PO DAILY Qty: 90 3RF acetaminophen 500 mg tablet 1,000 mg PO Q8H PRN (Reason: pain) Qty: 90 8RF clonazepam 1 mg tablet 1 mg PO BID PRN (Reason: anxiety) Qty: 60 2RF Salonpas 1 EACH adhesive patch,medicated 1 ea Topical .DAILY X 12 HOURS naloxone [Narcan] 4 mg/actuation spray,non-aerosol 1 spray KELL Q2-3M PRN (Reason: opioid overdose) Qty: 2 0RF Rx Instructions: spray 1 dose into ONE nostril; alternate nostrils w each dose until help arrives cholecalciferol (vitamin D3) [Vitamin D3] 2,000 unit Tablet 3,000 unit PO DAILY gabapentin 100 mg Capsule 100 mg PO TID Qty: 90 0RF sucralfate 1 gram Tablet 1 g PO AC & HS Qty: 120 0RF Thermotabs 287-180-15 mg Tablet 1 tab PO BID Qty: 60 0RF Medical Decision Making 76-year-old female with a past medical history of COPD, chronic back pain from spine fracture, who is a DNR/DNI, who presents to the ED for hypoxemia via EMS. Patient was actually recently here for an 11-day course with subsequent discharge on 01/31/2022 which was 12 days ago. She had sputum that grew for Moraxella catarrhalis, was treated with Augmentin and completed her prescription while here in the hospital. She had been discharged and been doing very well, until yesterday when she developed a cough with productive green sputum, she had a fever yesterday, last night, then again today with a T-max of 102. She has had her COVID-vaccine as well as recent booster. 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 When EMS arrived her oxygen was 60% on room air and she had notable respiratory distress. However on a nonrebreather she came up to the 90s and was titrated down to 4 L. Patient denies any chest pain, vomiting but does admit to dry heaving. She denies any chest tightness or arm neck or shoulder pain. No other complaints at this time. No other modifying factors. Exam demonstrates stable female, she is currently on 3 L and saturating in the mid 90s. She is normally not oxygen dependent. Diminished breath sounds throughout. We will give breathing treatments and Solu-Medrol for potential COPD component. With her fevers obviously there is concern for COVID, viral etiology, or more likely bacterial pneumonia. We will get a portable chest x- ray, monitor closely and reassess. EKG shows no evidence of STEMI or significant abnormality. Notable artifact is present on EKG 8:16 PM Laboratory work-up has returned, mildly elevated WBC count, VBG is stable, electrolytes demonstrate a slightly low sodium at 129. proBNP is stable showing no signs of heart strain. Troponin normal, procalcitonin is 0.2. Chest x-ray shows evidence of opacities in both bases, and this appears to be new compared to prior x-ray. COVID flu and RSV are negative. Patient is still requiring additional oxygenation supplement to patient. Right now she is at 4 to 5 L and is hovering around 93%. Normally she will do 2 L at home if needed. I do feel that the patient certainly warrants admission with her notable oxygen demand, or evidence of pneumonia, and a recent hospitalization suggesting hospital-acquired pneumonia. We will start vancomycin, Zosyn and doxycycline. Discussed the case with hospitalist Dr. Majano, he agrees with the assessment and plan. I will place admission orders on his behalf. I have extensively reviewed the treatment plan with the patient. I have addressed all patient concerns at this time. I have also discussed the plan with the admitting physician and they agree with the current assessment and plan and have agreed to assume responsibility for the patient. All parties demonstrate verbal understanding and agreement with our assessment and plan at this time. The documentation in this chart was dictated using [employer] dictation software. Please excuse any dictation errors. FINDINGS: Lungs: Hyperexpanded lung barboza consistent with COPD. Opacities in both bases may represent atelectasis or pneumonia. Pleural spaces: Unremarkable. No pleural effusion. No pneumothorax. Heart/Mediastinum: Unremarkable. No cardiomegaly. Bones/joints: Unremarkable. IMPRESSION: Opacities in both bases may represent atelectasis or pneumonia. Thank you for allowing us to participate in the care of your patient. Dictated and Authenticated by: Dg Monzon MD 02/12/2022 6:55 PM Eastern Time ([place] & [place]) HPI General Date/Time Provider Initiated Documentation: 02/12/22 18:14 . HPI Narrative: 76-year-old female with a past medical history of COPD, chronic back pain from spine fracture, who is a DNR/DNI, who presents to the ED for hypoxemia via EMS. Patient was actually recently here for an 11-day course with subsequent discharge on 01/31/2022 which was 12 days ago. She had sputum that grew for Moraxella catarrhalis, was treated with Augmentin and completed her prescription while here in the hospital. She had been discharged and been doing very well, until yesterday when she developed a cough with productive green sputum, she had a fever yesterday, last night, then again today with a T-max of 102. She has had her COVID-vaccine as well as recent booster. 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 When EMS arrived her oxygen was 60% on room air and she had notable respiratory distress. However on a nonrebreather she came up to the 90s and was titrated down to 4 L. Patient denies any chest pain, vomiting but does admit to dry heaving. She denies any chest tightness or arm neck or shoulder pain. No other complaints at this time. No other modifying factors. Related Data Home Medications Medication Instructions Recorded Confirmed camphor-methyl salicylate-menthol 1 ea topical .DAILY X 12 HOURS 11/10/16 02/10/22 topical patch (Salonpas topical patch) Oxygen #1 ea 12/12/18 02/12/22 naloxone 4 mg/actuation nasal 1 spray intranasal Q2-3M PRN 04/18/19 02/12/22 spray (Narcan) opioid overdose #2 ea cholecalciferol (vitamin D3) 50 3,000 unit PO DAILY 05/10/19 02/12/22 mcg (2,000 unit) tablet (Vitamin D3) albuterol sulfate 90 mcg/actuation 2 puff inhalation Q6H PRN 04/15/20 02/12/22 aerosol inhaler (Proventil HFA) shortness of breath or wheezing #6.7 grams amitriptyline 10 mg tablet 10 mg PO BID #180 tabs 03/19/21 02/12/22 roflumilast 500 mcg tablet 500 mcg PO DAILY #90 tab-caps 06/02/21 02/12/22 (Daliresp) acetylcysteine 600 mg capsule See Rx Instructions .Route 06/04/21 02/12/22 .COMPLEX #90 caps fluticasone fur. 100 mcg-umeclid 1 inh inhalation DAILY #28 ea 07/22/21 02/12/22 62.5 mcg-vilant 25 mcg inhalat.powder (Trelegy Ellipta) sertraline 100 mg tablet 100 mg PO DAILY #90 tab-caps 08/14/21 02/12/22 vit C 250 mg-vit E 90 mg-zinc 40 2 cap PO DAILY 08/21/21 02/12/22 mg-copper 1 [id number] capsule (PreserVision AREDS-2) acetaminophen 500 mg tablet 1,000 mg PO Q8H PRN pain #90 tabs 09/15/21 02/12/22 celecoxib 200 mg capsule 200 mg PO BID #60 caps 10/20/21 02/12/22 omeprazole 40 mg capsule,delayed 40 mg PO DAILY #30 caps 10/20/21 02/12/22 release gabapentin 100 mg capsule 100 mg PO TID #90 caps 01/31/22 02/12/22 sodium chloride-potassium chloride 1 tab PO BID #60 tabs 01/31/22 02/12/22 287 mg-180 mg-15 mg tablet (Thermotabs) sucralfate 1 gram tablet 1 g PO AC & HS #120 tabs 01/31/22 02/12/22 clonazepam 1 mg tablet 1 mg PO BID PRN anxiety #60 tabs 02/03/22 02/12/22 buprenorphine 5 mcg/hour weekly 1 patch transdermal Q7D #4 ea 02/10/22 02/12/22 transdermal patch (Agnes) Previous Rx's Medication Instructions Recorded naloxone 4 mg/actuation nasal 1 spray intranasal Q2-3M PRN 04/18/19 spray (Narcan) opioid overdose #2 ea albuterol sulfate 90 mcg/actuation 2 puff inhalation Q6H PRN 04/15/20 aerosol inhaler (Proventil HFA) shortness of breath or wheezing #6.7 grams amitriptyline 10 mg tablet 10 mg PO BID #180 tabs 03/19/21 roflumilast 500 mcg tablet 500 mcg PO DAILY #90 tab-caps 06/02/21 (Daliresp) acetylcysteine 600 mg capsule See Rx Instructions .Route 06/04/21 .COMPLEX #90 caps fluticasone fur. 100 mcg-umeclid 1 inh inhalation DAILY #28 ea 07/22/21 62.5 mcg-vilant 25 mcg inhalat.powder (Trelegy Ellipta) sertraline 100 mg tablet 100 mg PO DAILY #90 tab-caps 08/14/21 acetaminophen 500 mg tablet 1,000 mg PO Q8H PRN pain #90 tabs 09/15/21 celecoxib 200 mg capsule 200 mg PO BID #60 caps 10/20/21 omeprazole 40 mg capsule,delayed 40 mg PO DAILY #30 caps 10/20/21 release gabapentin 100 mg capsule 100 mg PO TID #90 caps 01/31/22 sodium chloride-potassium chloride 1 tab PO BID #60 tabs 01/31/22 287 mg-180 mg-15 mg tablet (Thermotabs) sucralfate 1 gram tablet 1 g PO AC & HS #120 tabs 01/31/22 clonazepam 1 mg tablet 1 mg PO BID PRN anxiety #60 tabs 02/03/22 buprenorphine 5 mcg/hour weekly 1 patch transdermal Q7D #4 ea 02/10/22 transdermal patch (Butrans) Allergies Allergy/AdvReac Type Severity Reaction Status Date / Time No Known Allergies Allergy Verified 01/21/22 06:42 General Stated Complaint: SOB MCKAYLA: 2 Review of Systems All systems reviewed & are unremarkable except as noted in HPI and below PFSH All Active Problems (Updated 02/12/22 @ 20:18 by Filiberto Boone, DO) Hypoxemia (Acute) Hospital-acquired bacterial pneumonia (Acute) Hyponatremia (Acute) Epigastric pain (Acute) Discharge planning issues (Acute) DVT prophylaxis (Acute) COPD with acute exacerbation (Acute) Acute bronchitis (Acute) Odynophagia (Acute) Dysphagia (Acute) GERD (gastroesophageal reflux disease) (Chronic) Chronic obstructive pulmonary disease (Chronic) Chronic pain syndrome (Acute 12/15/16) CONTROLLED SUBSTANCE AGREEMENT 10/03/18 Lumbosacral spondylosis without myelopathy (Acute) Fibromyalgia (Acute) Fall (Acute) Low back pain (Acute) Fever (Acute) Discharge planning issues (Acute) Acute exacerbation of chronic obstructive pulmonary disease (COPD) (Acute) T12 compression fracture (Acute) Ongoing leg pain (Acute) continue nSaid prn tramadol see surgeon next week consider topical analgesic on surrounding skin Hemoptysis (Acute) History of cataract removal with insertion of prosthetic lens (Acute 06/05/15) History of chest tube placement (Acute) Status post appendectomy (Acute) Status post laminectomy (Acute) Pain from implanted hardware (Chronic 10/30/18) S/P Hardware removal Bacterial pneumonia (Acute 11/23/13) Chronic anxiety (Chronic 06/22/13) Chronic emphysema syndrome (Chronic) Chronic pain in right shoulder (Chronic 11/20/13) Moderate protein malnutrition (Chronic 11/20/13) Contusion of right knee, initial encounter (Acute) Neck pain (Acute) Irritable bowel syndrome with diarrhea (Chronic) Cervical neck pain with evidence of disc disease (Chronic 06/22/13) History of tobacco abuse (Chronic) Anxiety (Chronic) LLL pneumonia (Acute ~03/30/18) Medical History (Updated 02/12/22 @ 20:18 by Filiberto Boone DO) DNI (do not intubate) DNR (do not resuscitate) POLST (Physician Orders for Life-Sustaining Treatment) Surgical History Appendectomy CHEST TUBE Extraction of cataract 06/05/15; LEFT EYE; DR. ARAUZ H/O section Hx of hysterectomy LAMINECTOMY CERVICAL SPINE Family History Mother , at age 89, cardiac problems No problems noted. Father , at 81 Cancer Throat cancer Brother , at 71 Colon cancer Sister Diabetes DM2 Sister Diabetes DM2 Son No problems noted. Social History Smoking/Tobacco Use Status: Former Tobacco Use Quit Date: 09/16/13 Pack-years: 50 Smoking risk assessment performed?: Yes Alcohol Intake: former Year quit: 1979 Drug use: Never Substance use type: does not use Household members: none Housing: apartment Other: living along; missing her family; lonely Do you feel safe at home: Yes Do you feel safe in your relationship?: No Additional Social history: 16 years ago. Originally from [place], moved here to be near son and grand children. On disability due to chronic back pain. 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 Approximate 75 pack year history of tobacco. No alcohol or illicit drug use endorsed. Exam Narrative Exam Narrative: 1.Const: Well-nourished, Well-developed, appearing stated age 2.Eyes: PERRL, no conjunctival injection, and symmetrical lids. 3.ENT: Atraumatic external nose and ears. Moist MM. Neck: Symmetric, trachea midline, No thyromegaly. 4.CVS: +S1/S2, No murmurs or gallops. Peripheral pulses 2+ and equal in all extremities. Brisk capillary refill in all extremities. 5.RESP: Slight labored respiratory effort, diminished breath sounds throughout. No crackles or rhonchi, wheezes or rails however minimal lung effort General 6.GI: Soft, Nontender/Nondistended, No hepatosplenomegaly. No guarding or rebound. 7.MSK: Normocephalic/Atraumatic, Extremities w/o deformity or ttp No cyanosis or clubbing, Normal movement of all extremities 8.Skin: Warm, Dry. No rashes or lesions. 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 Sensation grossly intact, no focal neurologic deficits. 10.Psych: (AAO) x3. Appropriate mood and affect Course Vital Signs Vital signs: Vital Signs Temperature 37.9 C H 02/12/22 18:11 Pulse 115 H 02/12/22 18:11 Respiratory Rate 18 02/12/22 18:11 Pulse Oximetry 96 02/12/22 18:11 Temperature 37.9 C H 02/12/22 18:11 Temperature Source Temporal Artery Scan 02/12/22 18:11 Pulse 115 H 02/12/22 18:11 Respiratory Rate 22 02/12/22 18:17 Respiratory Effort Non-Labored 02/12/22 18:17 Respiratory Depth Shallow 02/12/22 18:17 Respiratory Pattern Normal 02/12/22 18:17 Blood Pressure Position Sitting 02/12/22 18:11 Pulse Oximetry 96 02/12/22 18:11 Oxygen Delivery Method Room Air 02/12/22 18:11 Oxygen Flow Rate 0 02/12/22 18:11 Pain Level 2 02/12/22 18:11 Lab/Test Results Lab/Test Results: 02/12/22 18:25 Blood Blood Culture - Pending 02/12/22 18:25 Blood Blood Culture - Pending
[2022-02-12 18:45] LABS: BE (Venous) 4 mmol/L (-2-3); HCO3 (Venous) 30 mmol/L (23-28); O2 Sat (Venous) 53 %; TCO2 (Venous) 27 mmol/L (24-29); pCO2 (Venous) 55 mmHg (41-51); pH (Venous) 7.34 (7.31-7.41); pO2 (Venous) 28 mmHg
[2022-02-12 18:46] LABS: Abs Immature Grans 0.02 10^3/uL (0.0-0.06); Absolute Basophil Count 0.03 10^3/uL (0.0-0.2); Absolute Eosinophil Count 0.01 10^3/uL (0.0-0.7); Absolute Monocyte Count 0.41 10^3/uL (0.1-0.8); Absolute Neutrophil Count 10.69 10^3/uL (1.2-6.7); Basophils % 0.3; Eosinophils % 0.1; HCT 45.6 % (36.0-46.0); HGB 14.8 g/dL (11.2-15.7); Immature Grans % 0.2; Lymphocytes % 2.6; MCH 29.7 pg (27.0-33.0); MCHC 32.5 % (32.0-36.0); MCV 91 fL (80-95); MPV 8.5 fL (8.0-11.0); Monocytes % 3.6; Neutrophils % 93.2; Platelet Count 157 10^3/uL (130-400); RBC 4.99 10^6/uL (3.93-5.22); RDW 13.3 % (11.7-14.6); RDW-SD 45.1 fL; WBC 11.47 10^3/uL (4.4-10.8)
[2022-02-12 18:47] LABS: Lactate 0.8 mmol/L (0.6-1.4)
--- NOTE | 2022-02-12 18:55 | DI.VRAD_ITS ---
PROCEDURE INFORMATION: Exam: XR Chest Exam date and time: 02/12/2022 6:28 PM Age: 76 years old Clinical indication: Cough and shortness of breath and other: R/O pneumonia TECHNIQUE: Imaging protocol: Radiologic exam of the chest. Views: 1 view. COMPARISON: CR XR PORTABLE CHEST AP 01/21/2022 7:36 AM FINDINGS: Lungs: Hyperexpanded lung barboza consistent with COPD. Opacities in both bases may represent atelectasis or pneumonia. Pleural spaces: Unremarkable. No pleural effusion. No pneumothorax. Heart/Mediastinum: Unremarkable. No cardiomegaly. Bones/joints: Unremarkable. IMPRESSION: Opacities in both bases may represent atelectasis or pneumonia. Dictated and Authenticated by: Dg Monzon MD. Ordering:VI De Los Santos MD
[2022-02-12 19:03] VITALS: PULSE 110; RESP 15; RESP 19; RESP 8; O2SAT 92
[2022-02-12] MEDS: Albuterol/Ipratropium 3 ML UPD VIAL 6 ML UPD (19:03)
[2022-02-12] MEDS: methylPREDNISolone SUCC 125 MG VIAL IVP (19:04)
[2022-02-12 19:12] LABS: ALT 21 U/L (14-59); AST 13 U/L (15-37); Albumin 4.2 g/dL (3.4-5.0); Alkaline Phosphatase 109 U/L (46-116); Anion Gap 6.3 mmol/L (3-11); BUN 9 mg/dL (7-18); Bilirubin, Total 0.9 mg/dL (0.2-1.0); CO2 29.7 mmol/L (21.0-32.0); CREATININE 0.8 mg/dL (0.55-1.02); Chloride 93 mmol/L (98-107); Estimated GFR 76.31 (mL/min/1.73m2); Glucose 138 mg/dL (74-106); NT-proBNP 231 pg/mL (<300); Potassium 4.4 mmol/L (3.5-5.1); Sodium 129 mmol/L (136-145); Total Protein 8.5 g/dL (6.4-8.2); Troponin I < 50 ng/L (<or=60)
[2022-02-12 19:32] LABS: COVID-19 PCR Negative (Negative); Influenza A PCR Negative (Negative); Influenza B PCR Negative (Negative); RSV PCR Negative (Negative); Source Nasopharynx
[2022-02-12] MEDS: PIPERACILLIN/TAZO 3.375 GM in Normal Saline 50 ML IVPB (19:38)
[2022-02-12 19:50] LABS: Procalcitonin 0.2 ng/mL
[2022-02-12] MEDS: Ondansetron 4 MG/2 ML VIAL IVP (20:07)
[2022-02-12] MEDS: DOXYCYCLINE 100 MG in Normal Saline 100 ML IVPB (20:07)
--- NOTE | 2022-02-12 22:06 | HPE_ITS ---
Date of service: 02/12/22 Time of Service: 22:06 Assessment and Plan Assessment and plan (1) Hospital-acquired bacterial pneumonia: Start date: 02/12/22 Status: Acute Assessment and plan: This is a 76-year-old lady presenting with recurrent respiratory symptoms with severe COPD and chronically on home O2 at 2 L/min per nasal cannula on inhaler therapies. She is a previous smoker. She appears to have a hospital-acquired pneumonia with bibasilar infiltrates on chest x-ray with presentation of worsening hypoxemia, cough productive sputum and fever. She is negative for viral infections including COVID-19. She was admitted through the ED and remains in the ED department with no bed availability on [facility]. She will be continued on vancomycin, Zosyn and doxycycline. She will be treated for her COPD exacerbation. Patient is a DNR/DNI. (2) Acute exacerbation of chronic obstructive pulmonary disease (COPD): Start date: 02/12/22 Status: Acute Assessment and plan: Patient will be placed on IV Solu-Medrol and maximize respiratory treatments with outpatient treatment to continue and more aggressive nebulizer treatments while hospitalized. Adjust oxygen supplementation but watch for CO2 retention. (3) Hypoxemia: Start date: 02/12/22 Status: Acute Assessment and plan: Chronic hypoxemia but worsened with pneumonia with adjustment of oxygen jackson pplementation as needed during her hospital stay. She will return home on oxygen therapy. (4) Hyponatremia: Status: Chronic Assessment and plan: Continue monitoring while in the hospital on salt tablets. 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 (5) Chronic pain syndrome: Status: Chronic Assessment and plan: Continue outpatient pain management watching for respiratory suppression with the patient on narcotic patch as well as benzodiazepines. Risk-benefit must of been assessed for her to be on this medical regimen. She is a DNR/DNI. She does not appear to have a history of falling at home and her son does attend her closely. History of Present Illness History of Present Illness Chief Complaint: Shortness of breath with hypoxemia and cough Narrative: This is a 76-year-old female patient who recently was hospitalized for respiratory symptoms and pneumonia being treated for 11-day course. She grew a pathogen that was sensitive to Augmentin and completed that course in the hospital before discharge. Patient was discharged home on 01/31/2022 and is on chronic O2 at 2 L/min per nasal cannula living alone with her son attending her and living nearby. She began to have fever with productive cough of green sputum and shortness of breath the day prior to presentation. The day of presentation and fever 102. Patient has been fully vaccinated for COVID. She does have a history of chronic hyponatremia on salt tablets. When EMS picked the patient up at home her oxygen was 6% on room air and she was in respiratory distress. She was placed on nonrebreather and in the ED her pulse oximeter was in the 90% range and she was titrated down to 4 L/min per nasal cannula. Her baseline as stated is 2 L/min per nasal cannula. She denies any other complaints with no GI complaints or cardiovascular complaints. She does live alone and her exposure to the public is minimal. She does have chronic COPD with other medical problems including her hyponatremia, chronic pain with previous fracture and surgery over her cervical spine when she was in her 20s and some anxiety and depression on medical therapy. She was a previous smoker. She does have fibromyalgia with her chronic pain which is mostly over her spine. See ED notes on history and presentation. Review of Systems Narrative: 13 point review of systems otherwise unrevealing or stable. The patient is extremely thin with no recent weight change. She is deconditioned with her chronic respiratory and chronic pain issues. [facility] All Active Problems (Updated 02/13/22 @ 06:56 by Orlando Majano) Hypoxemia (Acute) Hospital-acquired bacterial pneumonia (Acute) Hyponatremia (Chronic) Epigastric pain (Acute) Discharge planning issues (Acute) DVT prophylaxis (Acute) COPD with acute exacerbation (Acute) Acute bronchitis (Acute) Odynophagia (Acute) Dysphagia (Acute) GERD (gastroesophageal reflux disease) (Chronic) Chronic obstructive pulmonary disease (Chronic) Chronic pain syndrome (Chronic 12/15/16) CONTROLLED SUBSTANCE AGREEMENT 10/03/18 Lumbosacral spondylosis without myelopathy (Acute) Fibromyalgia (Acute) Fall (Acute) Low back pain (Acute) Fever (Acute) Discharge planning issues (Acute) Acute exacerbation of chronic obstructive pulmonary disease (COPD) (Acute) T12 compression fracture (Acute) Ongoing leg pain (Acute) continue nSaid prn tramadol see surgeon next week consider topical analgesic on surrounding skin Hemoptysis (Acute) History of cataract removal with insertion of prosthetic lens (Acute 06/05/15) History of chest tube placement (Acute) Status post appendectomy (Acute) Status post laminectomy (Acute) Pain from implanted hardware (Chronic 10/30/18) S/P Hardware removal Bacterial pneumonia (Acute 11/23/13) Chronic anxiety (Chronic 06/22/13) Chronic emphysema syndrome (Chronic) Chronic pain in right shoulder (Chronic 11/20/13) Moderate protein malnutrition (Chronic 11/20/13) Contusion of right knee, initial encounter (Acute) Neck pain (Acute) Irritable bowel syndrome with diarrhea (Chronic) Cervical neck pain with evidence of disc disease (Chronic 06/22/13) History of tobacco abuse (Chronic) Anxiety (Chronic) LLL pneumonia (Acute ~03/30/18) Medical History (Updated 02/13/22 @ 06:56 by Orlando Majano) DNI (do not intubate) DNR (do not resuscitate) POLST (Physician Orders for Life-Sustaining Treatment) Surgical History Appendectomy CHEST TUBE Extraction of cataract 06/05/15; LEFT EYE; DR. ARAUZ H/O section Hx of hysterectomy LAMINECTOMY CERVICAL SPINE Family History Mother , at age 89, cardiac problems No problems noted. Father , at 81 Cancer Throat cancer Brother , at 71 Colon cancer Sister Diabetes DM2 Sister Diabetes DM2 Son No problems noted. Social History Smoking/Tobacco Use Status: Former Tobacco Use Quit Date: 09/16/13 Pack-years: 50 Smoking risk assessment performed?: Yes Alcohol Intake: former Year quit: 1979 Drug use: Never Substance use type: does not use Household members: none Housing: apartment Other: living along; missing her family; lonely Do you feel safe at home: Yes Do you feel safe in your relationship?: No Additional Social history: 16 years ago. Originally from [place], moved here to be near son and grand children. On disability due to chronic back pain. 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 Approximate 75 pack year history of tobacco. No alcohol or illicit drug use endorsed. Meds Allergies and Home Medications Allergies Allergy/AdvReac Type Severity Reaction Status Date / Time No Known Allergies Allergy Verified 01/21/22 06:42 Home Medications Medication Instructions Recorded Confirmed Type camphor-methyl salicylate-menthol 1 ea topical .DAILY X 12 HOURS 11/10/1601/17 History topical patch (Salonpas topical patch) Oxygen #1 ea 12/12/18 02/12/22 History naloxone 4 mg/actuation nasal 1 spray intranasal Q2-3M PRN 04/18/19 02/12/22 Rx spray (Narcan) opioid overdose #2 ea cholecalciferol (vitamin D3) 50 3,000 unit PO DAILY 05/10/19 02/12/22 History mcg (2,000 unit) tablet (Vitamin D3) albuterol sulfate 90 mcg/actuation 2 puff inhalation Q6H PRN 04/15/20 02/12/22 Rx aerosol inhaler (Proventil HFA) shortness of breath or wheezing #6.7 grams amitriptyline 10 mg tablet 10 mg PO BID #180 tabs 03/19/21 02/12/22 Rx roflumilast 500 mcg tablet 500 mcg PO DAILY #90 tab-caps 06/02/21 02/12/22 Rx (Daliresp) acetylcysteine 600 mg capsule See Rx Instructions .Route 06/04/21 02/12/22 Rx .COMPLEX #90 caps fluticasone fur. 100 mcg-umeclid 1 inh inhalation DAILY #28 ea 07/22/21 02/12/22 Rx 62.5 mcg-vilant 25 mcg inhalat.powder (Trelegy Ellipta) sertraline 100 mg tablet 100 mg PO DAILY #90 tab-caps 08/14/21 02/12/22 Rx vit C 250 mg-vit E 90 mg-zinc 40 2 cap PO DAILY 08/21/21 02/12/22 History mg-copper 1 lw-tlxift-heymcd capsule (PreserVision AREDS-2) acetaminophen 500 mg tablet 1,000 mg PO Q8H PRN pain #90 tabs 09/15/21 02/12/22 Rx celecoxib 200 mg capsule 200 mg PO BID #60 caps 10/20/21 02/12/22 Rx omeprazole 40 mg capsule,delayed 40 mg PO DAILY #30 caps 10/20/21 02/12/22 Rx release gabapentin 100 mg capsule 100 mg PO TID #90 caps 01/31/22 02/12/22 Rx sodium chloride-potassium chloride 1 tab PO BID #60 tabs 01/31/22 02/12/22 Rx 287 mg-180 mg-15 mg tablet (Thermotabs) sucralfate 1 gram tablet 1 g PO AC & HS #120 tabs 01/31/22 02/12/22 Rx clonazepam 1 mg tablet 1 mg PO BID PRN anxiety #60 tabs 02/03/22 02/12/22 Rx buprenorphine 5 mcg/hour weekly 1 patch transdermal Q7D #4 ea 02/10/22 02/12/22 Rx transdermal patch (Butrans) Exam Narrative Exam Narrative: General: Patient appears older than stated age, almost cachectic appearing, in no acute distress and alert and oriented x3. She is able to speak with minimal breathlessness and has not pursed lip breathing. She is not coughing at this time. HEENT: Normocephalic, eyes with pupils equal react to light symmetrically, extraocular movement intact and sclera anicteric. Oropharynx with dry mucosa and poor dentition with missing teeth and remaining teeth carious and discolored. Neck: Supple without JVD. Back: Loss of lordotic curve lumbar spine, decreased range of motion, slightly kyphotic posture with well-healed scar over the base of the neck and the top of the thoracic spine. No CVA tenderness. Lungs: Poor aeration diffusely with poor air movement and no expiratory crackles noted but air movement is minimal. No expiratory wheeze and no increased expiratory phase. More clear bronchovesicular breath sounds over the upper lung barboza. Breast: Exam deferred. Heart: Distant heart sounds with regular rate and rhythm no appreciable murmur or gallop. Abdomen: Scaphoid contour, soft nontender to palpation with no palpable hepatosplenomegaly. Genitalia/rectal: Exam deferred. Extremities: Without clubbing, cyanosis or pitting edema. Fair capillary refill. Skin: Pale, warm and dry. Fair turgor. Neuro: Cranial nerves II through XII gross intact, no focalizing motor deficits or tremor. Psych: Normal mood and affect with slightly euphoric affect at times when discussing her appreciation for her son living nearby and helping. No abnormal thought processes. Remote and recent memory intact. Results Imaging Imaging Studies: Exam: XR Chest Exam date and time: 02/12/2022 6:28 PM Age: 76 years old Clinical indication: Cough and shortness of breath and other: R/O pneumonia TECHNIQUE: Imaging protocol: Radiologic exam of the chest. Views: 1 view. COMPARISON: CR XR PORTABLE CHEST AP 01/21/2022 7:36 AM FINDINGS: Lungs: Hyperexpanded lung barboza consistent with COPD. Opacities in both bases may represent atelectasis or pneumonia. Pleural spaces: Unremarkable. No pleural effusion. No pneumothorax. Heart/Mediastinum: Unremarkable. No cardiomegaly. Bones/joints: Unremarkable. IMPRESSION: Opacities in both bases may represent atelectasis or pneumonia. Labs Result diagrams: 02/13/22 06:00 02/13/22 06:00 Labs: Laboratory Results - last 24 hr 02/12/22 02/12/22 02/12/22 18:35 18:35 18:35 WBC RBC Hgb Hct MCV MCH MCHC RDW Plt Count MPV Immature Gran % Neutrophils % Lymphocytes % Monocytes % Eosinophils % Basophils % Nucleated RBC % Absolute Neutrophils Absolute Lymphocytes Absolute Monocytes Absolute Eosinophils Absolute Basophils VBG pH VBG pCO2 VBG pO2 VBG HCO3 VBG Total CO2 VBG O2 Saturation VBG Base Excess VBG Lactate 0.8 Sodium 129 L Potassium 4.4 Chloride 93 L Carbon Dioxide 29.7 Anion Gap 6.3 BUN 9 Creatinine 0.8 Est GFR (CKD-EPI 2020) 76.31 Glucose 138 H Calcium 10.0 Total Bilirubin 0.9 AST 13 L ALT 21 Alkaline Phosphatase 109 Troponin I < 50 NT-Pro-B Natriuret Pep 231 Total Protein 8.5 H Albumin 4.2 Procalcitonin 0.2 COVID-19 Source SARS-CoV-2 (PCR) Influenza Type A (PCR) Influenza Type B (PCR) RSV (PCR) 02/12/22 02/12/22 02/12/22 18:35 18:35 18:48 WBC 11.47 H RBC 4.99 Hgb 14.8 Hct 45.6 MCV 91 MCH 29.7 MCHC 32.5 RDW 13.3 Plt Count 157 MPV 8.5 Immature Gran % 0.2 Neutrophils % 93.2 Lymphocytes % 2.6 Monocytes % 3.6 Eosinophils % 0.1 Basophils % 0.3 Nucleated RBC % 0.0 Absolute Neutrophils 10.69 H Absolute Lymphocytes 0.30 L Absolute Monocytes 0.41 Absolute Eosinophils 0.01 Absolute Basophils 0.03 VBG pH 7.34 VBG pCO2 55 H VBG pO2 28 VBG HCO3 30 H VBG Total CO2 27 VBG O2 Saturation 53 VBG Base Excess 4 H VBG Lactate Sodium Potassium Chloride Carbon Dioxide Anion Gap BUN Creatinine Est GFR (CKD-EPI 2020) Glucose Calcium Total Bilirubin AST ALT Alkaline Phosphatase Troponin I NT-Pro-B Natriuret Pep Total Protein Albumin Procalcitonin COVID-19 Source Nasopharynx SARS-CoV-2 (PCR) Negative Influenza Type A (PCR) Negative Influenza Type B (PCR) Negative RSV (PCR) Negative Last Vital Signs Temp 37.9 C H 02/12/22 18:11 Pulse 110 H 02/12/22 19:03 Resp 15 02/12/22 19:03 Pulse Ox 92 02/12/22 19:03
[2022-02-12] MEDS: VANCOMYCIN 1,100 MG in Normal Saline 500 ML 333.3333 MG IVPB (22:28)
[2022-02-13] VITALS (87 sets, daily range): BP systolic 49–122; BP diastolic 31–91; PULSE 75–100; RESP 1–52; TEMP 36.8–37.1; O2SAT 87–99
[2022-02-13] MEDS: PIPERACILLIN/TAZO 3.375 GM in Normal Saline 50 ML IVPB ×2 (03:53→13:53)
[2022-02-13] MEDS: methylPREDNISolone SUCC 125 MG VIAL 80 MG IVP ×3 (05:12→19:41)
[2022-02-13 06:06] LABS: Abs Immature Grans 0.02 10^3/uL (0.0-0.06); Absolute Basophil Count 0.01 10^3/uL (0.0-0.2); Absolute Lymphocyte Count 0.25 10^3/uL (1.2-3.4); Absolute Monocyte Count 0.04 10^3/uL (0.1-0.8); Absolute Neutrophil Count 6.37 10^3/uL (1.2-6.7); Basophils % 0.1; HCT 39.6 % (36.0-46.0); HGB 12.6 g/dL (11.2-15.7); Immature Grans % 0.3; Lymphocytes % 3.7; MCH 29.2 pg (27.0-33.0); MCHC 31.8 % (32.0-36.0); MCV 92 fL (80-95); MPV 8.7 fL (8.0-11.0); Monocytes % 0.6; Neutrophils % 95.3; Platelet Count 157 10^3/uL (130-400); RBC 4.31 10^6/uL (3.93-5.22); RDW 13.2 % (11.7-14.6); RDW-SD 45.1 fL; WBC 6.69 10^3/uL (4.4-10.8)
[2022-02-13 06:22] LABS: ALT 19 U/L (14-59); AST 11 U/L (15-37); Albumin 3.2 g/dL (3.4-5.0); Alkaline Phosphatase 84 U/L (46-116); BUN 9 mg/dL (7-18); Bilirubin, Total 0.7 mg/dL (0.2-1.0); CREATININE 0.9 mg/dL (0.55-1.02); Chloride 97 mmol/L (98-107); Estimated GFR 66.26 (mL/min/1.73m2); Glucose 182 mg/dL (74-106); Magnesium 1.8 mg/dL (1.8-2.4); Potassium 4.5 mmol/L (3.5-5.1); Sodium 131 mmol/L (136-145); Total Protein 6.8 g/dL (6.4-8.2)
[2022-02-13] MEDS: Omeprazole 20 MG CAPCR 40 MG PO (07:47)
[2022-02-13] MEDS: Sucralfate 1 GM TAB PO ×4 (07:47→21:20)
[2022-02-13] MEDS: DOXYCYCLINE 100 MG in Normal Saline 100 ML IVPB ×2 (08:25→21:20)
[2022-02-13] MEDS: Albuterol/Ipratropium 3 ML UPD VIAL UPD ×2 (08:26→15:23)
[2022-02-13] MEDS: Acetylcysteine 600 MG CAP PO (09:06)
[2022-02-13] MEDS: Sertraline 100 MG TAB PO (09:06)
[2022-02-13] MEDS: Cholecalciferol (Vitamin D3) 1,000 UNIT TAB 3000 UNITS PO (09:06)
[2022-02-13] MEDS: Roflumilast 500 MCG TAB PO (09:06)
[2022-02-13] MEDS: Celecoxib 200 MG CAP PO ×2 (09:06→19:41)
[2022-02-13] MEDS: Gabapentin 100 MG CAP PO ×3 (09:06→19:41)
[2022-02-13] MEDS: Salt Supplement (BUFFERED) TAB 1 TAB PO ×2 (09:06→19:41)
[2022-02-13] MEDS: Enoxaparin 40 MG/0.4 ML SYR SC (09:07)
[2022-02-13] MEDS: Amitriptyline 10 MG TAB PO ×2 (09:13→19:41)
--- NOTE | 2022-02-13 10:00 | INITIAL_ITS ---
- If Service Date Differs Date of service: 02/13/22 Time of Service: 10:00 Care Management Initial Assess REASON FOR HOSPITALIZATION:: hospital acquired pneumonia PAST MEDICAL HISTORY/PAST SURGICAL HISTORY:: All Active Problems . GERD (gastroesophageal reflux disease) (Chronic). Chronic obstructive pulmonary disease (Chronic). Chronic pain syndrome (Acute 12/15/16). CONTROLLED SUBSTANCE AGREEMENT 10/03/18. Lumbosacral spondylosis without myelopathy (Acute). Fibromyalgia (Acute). Fall (Acute). Low back pain (Acute). Fever (Acute). Acute purulent bronchitis (Acute). Discharge planning issues (Acute). Acute exacerbation of chronic obstructive pulmonary disease (COPD) (Acute). T12 compression fracture (Acute). Ongoing leg pain (Acute). continue nSaid. prn tramadol. see surgeon next we ek. consider topical analgesic on surrounding skin. Hemoptysis (Acute). History of cataract removal with insertion of prosthetic lens (Acute 06/05/15). History of chest tube placement (Acute). Status post appendectomy (Acute). Status post laminectomy (Acute). Pain from implanted hardware (Chronic 10/30/18). S/P Hardware removal. Bacterial pneumonia (Acute 11/23/13). Chronic anxiety (Chronic 06/22/13). Chronic emphysema syndrome (Chronic). Chronic pain in right shoulder (Chronic 11/20/13). Moderate protein malnutrition (Chronic 11/20/13). Contusion of right knee, initial encounter (Acute). Neck pain (Acute). Irritable bowel syndrome with diarrhea (Chronic). Cervical neck pain with evidence of disc disease (Chronic 06/22/13). History of tobacco abuse (Chronic). Anxiety (Chronic). LLL pneumonia (Acute ~03/30/18). Medical History . DNI (do not intubate). DNR (do not resuscitate). POLST (Physician Orders for Life-Genia taining Treatment). Surgical History . Appendectomy. CHEST TUBE. Extraction of cataract. 06/05/15; LEFT EYE; DR. ARAUZ. H/O section. Hx of hysterectomy. LAMINECTOMY. CERVICAL SPINE PREVIOUS FUNCTIONAL STATUS/SOCIAL/FAMILY SUPPORTS:: Laney lives in [place] in an inlaw apartment in her son Stanley's home along with his Bree and 4 children ages 10, 8, 7 and 3. Her family, including the children, are very helpful and supportive. Laney uses 2L of nasal O2 at baseline which she receives from [facility] and uses a walker or furniture surfing to ambulate in her home. She no longer drives and rarely goes out. CURRENT FUNCTIONAL STATUS:: Laney was sitting up in bed when CM met with her. She was pleasant and engaged readily with CM, well known to her from previous hospital stays. Laney talked a lot about her spirituality and prayer today. She shared some amazing stories about family members who had had surprising and unexpected recoveries and cures from illnesses that normally have a poor prognosis. Laney also talked about her grandchildren and how much she enjoys them and how much they do for her. ADVANCE DIRECTIVES:: Laney has a COLST form on file that states she wished to be a DNR/DNI however her medical orders state Full Code. CM discuseed this with Laney who clearly stated that she wishes to be a Full Code. The provider is aware of this and have written orders accordingly. A Palliative consult will be requested. Has patient been provided with info about the portal/API?: Yes Did the patient sign up for the portal?: Yes (previously) INSURANCE COVERAGE / FINANCIAL ISSUES:: Medicare. Medicaid CURRENT HOME/COMMUNITY SERVICES/EQUIPMENT:: home oxygen and has a walker PRIMARY CARE PHYSICIAN:: Ralph Rahman POTENTIAL DISCHARGE NEEDS:: Follow up with Pulmonology, PCP and plan of care PATIENT/FAMILY EDUCATION NEEDS:: Review of discharge instructions, activity, limitations, follow up plan, Ask Me Three TRANSPORTATION:: via private vehicle with family PLAN:: Laney will return home, possibly with new home health services. She will follow up with her PCP and plan of care and transport with family. CM will support Laney and her discharge needs.
--- NOTE | 2022-02-13 10:43 | W.PM.PROGNOT ---
Date of Service Date of service: 02/13/22 Time of Service: 10:43 Assessment and Plan Assessment and plan (1) Hospital-acquired bacterial pneumonia: Status: Acute Assessment and plan: Laney has recurrent respiratory symptoms with severe COPD and chronically on home O2 at 2 L/min per nasal cannula on inhaler therapies. She will be continued on vancomycin, Zosyn and doxycycline. She will be treated for her COPD exacerbation. Patient is a DNR/DNI. (2) Acute exacerbation of chronic obstructive pulmonary disease (COPD): Start date: 02/12/22 Status: Acute Assessment and plan: Patient will be placed on IV Solu-Medrol and maximize respiratory treatments with outpatient treatment to continue and more aggressive nebulizer treatments while hospitalized. Adjust oxygen supplementation but watch for CO2 retention. (3) Hypoxemia: Start date: 02/12/22 Status: Acute Assessment and plan: Chronic hypoxemia but worsened with pneumonia with adjustment of oxygen supplementation as needed during her hospital stay. She will return home on oxygen therapy. (4) Hyponatremia: Status: Chronic Assessment and plan: Continue monitoring while in the hospital on salt tablets. 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 (5) Chronic pain syndrome: Status: Chronic Assessment and plan: Continue outpatient pain management watching for respiratory suppression with the patient on narcotic patch as well as benzodiazepines. Risk-benefit must of been assessed for her to be on this medical regimen. She is a DNR/DNI. She does not appear to have a history of falling at home and her son does attend her closely. Subjective Subjective Patient reports: no new complaints, feels better, tolerating a regular diet, voiding w/o difficulty and afebrile; denies shortness of breath Interval history since last seen: Laney would like to change her code status to Full Code - I did change it. She has no complaints since arriving on the floor. She does not have any increased WOB, she did tolerate a meal. Exam Narrative Exam Narrative: General: cachectic appearing, in no acute distress and alert and oriented x3, she does speak in full sentences without increased WOB, no cough while I was present. HEENT: Normocephalic, eyes with pupils equal react to light symmetrically, extraocular movement intact and sclera anicteric. Oropharynx with dry mucosa and poor dentition with missing teeth and remaining teeth carious and discolored. Neck: Supple without JVD. Back: Loss of lordotic curve lumbar spine, decreased range of motion, slightly kyphotic posture with well-healed scar over the base of the neck and the top of the thoracic spine. No CVA tenderness. Lungs: Poor aeration diffusely with poor air movement and no expiratory crackles noted, upper lungs mostly clear with more air movement Breast: Exam deferred. Heart: Distant heart sounds with regular rate and rhythm no appreciable murmur or gallop. Abdomen: Scaphoid contour, soft nontender to palpation with no palpable hepatosplenomegaly. Genitalia/rectal: Exam deferred. Extremities: Without clubbing, cyanosis or pitting edema. Fair capillary refill. Skin: Pale, warm and dry. Fair turgor. Neuro: Cranial nerves II through XII gross intact, no focalizing motor deficits or tremor. Psych: Normal mood and affect. No abnormal thought processes. Remote and recent memory intact. Objective Last Vital Signs Temp 36.8 C 02/13/22 08:42 Pulse 90 02/13/22 08:42 Resp 18 02/13/22 08:42 BP 118/72 02/13/22 08:42 Pulse Ox 93 02/13/22 08:42 Laboratory Results - last 24 hr 02/12/22 02/12/22 02/12/22 18:35 18:35 18:35 WBC RBC Hgb Hct MCV MCH MCHC RDW Plt Count MPV Immature Gran % Neutrophils % Lymphocytes % Monocytes % Eosinophils % Basophils % Nucleated RBC % Absolute Neutrophils Absolute Lymphocytes Absolute Monocytes Absolute Eosinophils Absolute Basophils VBG pH VBG pCO2 VBG pO2 VBG HCO3 VBG Total CO2 VBG O2 Saturation VBG Base Excess VBG Lactate 0.8 Sodium 129 L Potassium 4.4 Chloride 93 L Carbon Dioxide 29.7 Anion Gap 6.3 BUN 9 Creatinine 0.8 Est GFR (CKD-EPI 2020) 76.31 Glucose 138 H Calcium 10.0 Magnesium Total Bilirubin 0.9 AST 13 L ALT 21 Alkaline Phosphatase 109 Troponin I < 50 NT-Pro-B Natriuret Pep 231 Total Protein 8.5 H Albumin 4.2 Procalcitonin 0.2 COVID-19 Source SARS-CoV-2 (PCR) Influenza Type A (PCR) Influenza Type B (PCR) RSV (PCR) 02/12/22 02/12/22 02/12/22 18:35 18:35 18:48 WBC 11.47 H RBC 4.99 Hgb 14.8 Hct 45.6 MCV 91 MCH 29.7 MCHC 32.5 RDW 13.3 Plt Count 157 MPV 8.5 Immature Gran % 0.2 Neutrophils % 93.2 Lymphocytes % 2.6 Monocytes % 3.6 Eosinophils % 0.1 Basophils % 0.3 Nucleated RBC % 0.0 Absolute Neutrophils 10.69 H Absolute Lymphocytes 0.30 L Absolute Monocytes 0.41 Absolute Eosinophils 0.01 Absolute Basophils 0.03 VBG pH 7.34 VBG pCO2 55 H VBG pO2 28 VBG HCO3 30 H VBG Total CO2 27 VBG O2 Saturation 53 VBG Base Excess 4 H VBG Lactate Sodium Potassium Chloride Carbon Dioxide Anion Gap BUN Creatinine Est GFR (CKD-EPI 2020) Glucose Calcium Magnesium Total Bilirubin AST ALT Alkaline Phosphatase Troponin I NT-Pro-B Natriuret Pep Total Protein Albumin Procalcitonin COVID-19 Source Nasopharynx SARS-CoV-2 (PCR) Negative Influenza Type A (PCR) Negative Influenza Type B (PCR) Negative RSV (PCR) Negative 02/13/22 02/13/22 06:00 06:00 WBC 6.69 RBC 4.31 Hgb 12.6 D Hct 39.6 MCV 92 MCH 29.2 MCHC 31.8 L RDW 13.2 Plt Count 157 MPV 8.7 Immature Gran % 0.3 Neutrophils % 95.3 Lymphocytes % 3.7 Monocytes % 0.6 Eosinophils % 0.0 Basophils % 0.1 Nucleated RBC % 0.0 Absolute Neutrophils 6.37 Absolute Lymphocytes 0.25 L Absolute Monocytes 0.04 L Absolute Eosinophils 0.00 Absolute Basophils 0.01 VBG pH VBG pCO2 VBG pO2 VBG HCO3 VBG Total CO2 VBG O2 Saturation VBG Base Excess VBG Lactate Sodium 131 L Potassium 4.5 Chloride 97 L Carbon Dioxide 31.0 Anion Gap 3.0 BUN 9 Creatinine 0.9 Est GFR (CKD-EPI 2020) 66.26 Glucose 182 H Calcium 9.0 Magnesium 1.8 Total Bilirubin 0.7 AST 11 L ALT 19 Alkaline Phosphatase 84 Troponin I NT-Pro-B Natriuret Pep Total Protein 6.8 Albumin 3.2 L Procalcitonin COVID-19 Source SARS-CoV-2 (PCR) Influenza Type A (PCR) Influenza Type B (PCR) RSV (PCR)
[2022-02-13] MEDS: VANCOMYCIN 500 MG in Normal Saline 100 ML 66.667 MG IVPB ×2 (11:14→17:51)
[2022-02-13] MEDS: Budesonide/Formoterol 80/4.5 6.9 GM 60 PUFF INH IH ×2 (11:43→19:40)
[2022-02-13] MEDS: Tiotropium Bromide-Respimat 10 PUFF INH 2 PUFF IH (11:44)
[2022-02-13] MEDS: Normal Saline Flush 10 ML SYR IVP (13:23)
[2022-02-13] MEDS: clonazePAM 1 MG TAB PO ×2 (16:27→21:26)
[2022-02-14] VITALS (14 sets, daily range): BP systolic 100–131; BP diastolic 55–69; PULSE 54–136; RESP 1–28; TEMP 36.3–37.1; O2SAT 90–94
[2022-02-14] MEDS: PIPERACILLIN/TAZO 3.375 GM in Normal Saline 50 ML IVPB ×4 (01:10→17:23)
[2022-02-14] MEDS: VANCOMYCIN 500 MG in Normal Saline 100 ML 66.67 MG IVPB (02:08)
[2022-02-14] MEDS: methylPREDNISolone SUCC 125 MG VIAL 80 MG IVP ×3 (03:43→22:05)
[2022-02-14] MEDS: Normal Saline Flush 10 ML SYR IVP ×5 (05:27→22:05)
[2022-02-14 07:17] LABS: Abs Immature Grans 0.06 10^3/uL (0.0-0.06); Absolute Basophil Count 0.01 10^3/uL (0.0-0.2); Absolute Lymphocyte Count 0.26 10^3/uL (1.2-3.4); Absolute Monocyte Count 0.24 10^3/uL (0.1-0.8); Absolute Neutrophil Count 8.85 10^3/uL (1.2-6.7); Basophils % 0.1; HCT 36.8 % (36.0-46.0); HGB 12.1 g/dL (11.2-15.7); Immature Grans % 0.6; Lymphocytes % 2.8; MCHC 32.9 % (32.0-36.0); MCV 91 fL (80-95); Monocytes % 2.5; Platelet Count 180 10^3/uL (130-400); RBC 4.04 10^6/uL (3.93-5.22); RDW 13.2 % (11.7-14.6); RDW-SD 45.1 fL; WBC 9.42 10^3/uL (4.4-10.8)
[2022-02-14 07:29] LABS: Anion Gap 4.9 mmol/L (3-11); BUN 12 mg/dL (7-18); CO2 30.1 mmol/L (21.0-32.0); CREATININE 0.7 mg/dL (0.55-1.02); Calcium 8.8 mg/dL (8.5-10.1); Chloride 98 mmol/L (98-107); Estimated GFR 89.58 (mL/min/1.73m2); Glucose 174 mg/dL (74-106); Potassium 4.4 mmol/L (3.5-5.1); Sodium 133 mmol/L (136-145)
[2022-02-14] MEDS: Enoxaparin 40 MG/0.4 ML SYR SC (07:49)
[2022-02-14] MEDS: DOXYCYCLINE 100 MG in Normal Saline 100 ML IVPB ×2 (07:49→23:03)
[2022-02-14] MEDS: Cholecalciferol (Vitamin D3) 1,000 UNIT TAB 3000 UNITS PO (07:50)
[2022-02-14] MEDS: Omeprazole 20 MG CAPCR 40 MG PO (07:50)
[2022-02-14] MEDS: Sucralfate 1 GM TAB PO ×4 (07:50→22:04)
[2022-02-14] MEDS: Celecoxib 200 MG CAP PO ×2 (07:50→22:04)
[2022-02-14] MEDS: Salt Supplement (BUFFERED) TAB 1 TAB PO ×2 (07:51→22:04)
[2022-02-14] MEDS: Acetylcysteine 600 MG CAP PO (07:51)
[2022-02-14] MEDS: Roflumilast 500 MCG TAB PO (07:51)
[2022-02-14] MEDS: Sertraline 100 MG TAB PO (07:51)
[2022-02-14] MEDS: Amitriptyline 10 MG TAB PO ×2 (07:51→22:04)
[2022-02-14] MEDS: Gabapentin 100 MG CAP PO ×3 (07:51→22:05)
[2022-02-14] MEDS: clonazePAM 1 MG TAB PO ×2 (08:08→17:22)
[2022-02-14] MEDS: Acetaminophen 325 MG TAB PO ×3 (08:08→22:04)
[2022-02-14] MEDS: Albuterol/Ipratropium 3 ML UPD VIAL UPD ×3 (09:00→22:04)
[2022-02-14] MEDS: Budesonide/Formoterol 80/4.5 6.9 GM 60 PUFF INH IH ×2 (09:18→22:05)
[2022-02-14] MEDS: Tiotropium Bromide-Respimat 10 PUFF INH 2 PUFF IH (09:18)
[2022-02-14] MEDS: traMADol 50 MG TAB PO ×2 (09:31→22:04)
--- NOTE | 2022-02-14 10:50 | W.ANESVAS ---
Midline Placement Date Performed: 02/14/22 Procedure Time: 10:32 Requesting Provider: Olga Swenson Procedure Location: Med/Surg Sedation Given (Indicate Dose Given): No Sedation given Patient Mental Status: Awake Sterility: Hand Hygiene, Surgical Cap, Surgical Mask, Sterile Gloves, Sterile Drape/Sheet and Chlorhexidine Laterality: Right Insertion Site: Basilic Midline Device: PowerGlide Pro 18G Catheter Length: 10 cm Midline Procedure Procedure: 1% Lidocaine to skin and subcutaneous tissue with 25g needle, Vessel accessed with catheter over needle, Guidewire placed with ease, Catheter placed without resistance and Guidewire removed Dressing: Tegaderm Applied and Statlock Applied Blood Return: Present Flushes: Easily Ultrasound: Sterile probe cover and gel used Ultrasound Image Saved?: Yes Number of Attempts (See previous attempts in note section): 1 Procedure Tolerated: Patient tolerated well Procedure Outcome: Successful Procedure Comment:: procedure assisted by Toya Dey Performed By: Yessica Cruz
[2022-02-14] MEDS: VANCOMYCIN 500 MG in Normal Saline 100 ML 66.667 MG IVPB ×2 (11:18→22:31)
--- NOTE | 2022-02-14 15:45 | RT.EKG_ITS ---
APPROVED REPORT Exam: Resting ECG Reason for Exam: chest pain Patient Location: I HR:111 bpm ECG Measurements Heart Rate 111 AXIS UT 152 P 78 QRSd 83 QRS 58 QT 301 T 43 QTc 409 Conclusion Sinus tachycardia...rate> 99 Probable left atrial enlargement...P >50mS, <-0.10mV V1
[2022-02-14 16:22] LABS: Troponin I < 50 ng/L (<or=60)
--- NOTE | 2022-02-14 18:38 | W.PM.PROGNOT ---
Date of Service Date of service: 02/14/22 Time of Service: 14:00 Assessment and Plan Assessment and plan (1) Hospital-acquired bacterial pneumonia: Status: Acute Assessment and plan: Laney has recurrent respiratory symptoms with severe COPD and chronically on home O2 at 2 L/min per nasal cannula on inhaler therapies. She will be continued on vancomycin, Zosyn and doxycycline. She will be treated for her COPD exacerbation. Patient is a DNR/DNI. (2) Acute exacerbation of chronic obstructive pulmonary disease (COPD): Start date: 02/12/22 Status: Acute Assessment and plan: Patient will be placed on IV Solu-Medrol and maximize respiratory treatments with outpatient treatment to continue and more aggressive nebulizer treatments while hospitalized. Adjust oxygen supplementation but watch for CO2 retention. (3) Hypoxemia: Start date: 02/12/22 Status: Acute Assessment and plan: Chronic hypoxemia but worsened with pneumonia with adjustment of oxygen supplementation as needed during her hospital stay. She will return home on oxygen therapy. (4) Hyponatremia: Status: Chronic Assessment and plan: Continue monitoring while in the hospital on salt tablets. 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 (5) Chronic pain syndrome: Status: Chronic Assessment and plan: Continue outpatient pain management watching for respiratory suppression with the patient on narcotic patch as well as benzodiazepines. Risk-benefit must of been assessed for her to be on this medical regimen. She is a DNR/DNI. She does not appear to have a history of falling at home and her son does attend her closely. Subjective Subjective Patient reports: no new complaints, feels better, voiding w/o difficulty, bowel movement and afebrile; denies diarrhea, nausea or vomiting Exam Narrative Exam Narrative: General: cachectic appearing, in no acute distress and alert and oriented x3, pleasant, she does speak in full sentences without increased WOB, no cough while I was present 30 degree in bed, supine HEENT: Normocephalic, eyes with pupils equal react to light symmetrically, extraocular movement intact and sclera anicteric. Oropharynx with dry mucosa and poor dentition with missing teeth and remaining teeth carious and discolored. Neck: Supple without JVD. Back: Loss of lordotic curve lumbar spine, decreased range of motion, slightly kyphotic posture with well-healed scar over the base of the neck and the top of the thoracic spine. No CVA tenderness. Lungs: Poor aeration diffusely with poor air movement and no expiratory crackles noted, upper lungs mostly clear with more air movement Breast: Exam deferred. Heart: Distant heart sounds with regular rate and rhythm no appreciable murmur or gallop. Abdomen: Scaphoid contour, soft nontender to palpation with no palpable hepatosplenomegaly. Genitalia/rectal: Exam deferred. Extremities: Without clubbing, cyanosis or pitting edema. Fair capillary refill. Skin: Pale, warm and dry. Fair turgor. Neuro: Cranial nerves II through XII gross intact, no focalizing motor deficits or tremor. Psych: Normal mood and affect. No abnormal thought processes. Remote and recent memory intact. Objective Last Vital Signs Temp 36.9 C 02/14/22 16:19 Pulse 104 H 02/14/22 16:19 Resp 18 02/14/22 16:19 BP 105/62 02/14/22 16:19 Pulse Ox 92 02/14/22 17:39 Laboratory Results - last 24 hr 02/14/22 02/14/22 02/14/22 07:08 07:08 15:55 WBC 9.42 RBC 4.04 Hgb 12.1 Hct 36.8 MCV 91 MCH 30.0 MCHC 32.9 RDW 13.2 Plt Count 180 MPV 9.0 Immature Gran % 0.6 Neutrophils % 94.0 Lymphocytes % 2.8 Monocytes % 2.5 Eosinophils % 0.0 Basophils % 0.1 Nucleated RBC % 0.0 Absolute Neutrophils 8.85 H Absolute Lymphocytes 0.26 L Absolute Monocytes 0.24 Absolute Eosinophils 0.00 Absolute Basophils 0.01 Sodium 133 L Potassium 4.4 Chloride 98 Carbon Dioxide 30.1 Anion Gap 4.9 BUN 12 Creatinine 0.7 Est GFR (CKD-EPI 2020) 89.58 Glucose 174 H Calcium 8.8 Magnesium 2.0 Troponin I < 50
[2022-02-14 19:36] LABS: Vancomycin, Trough 11.1 ug/mL (10.0-20.0)
[2022-02-14 19:37] LABS: Troponin I < 50 ng/L (<or=60)
[2022-02-15] VITALS (12 sets, daily range): BP systolic 93–123; BP diastolic 55–70; PULSE 92–103; RESP 1–20; TEMP 36–38; O2SAT 92–98
[2022-02-15] MEDS: PIPERACILLIN/TAZO 3.375 GM in Normal Saline 50 ML IVPB ×5 (00:55→23:53)
[2022-02-15 01:43] LABS: Bilirubin Negative (Negative); Blood Negative (Negative); Clarity Clear (Clear); Glucose Negative (Negative); Ketones Negative (Negative); Leukocyte Esterase Negative (Negative); Nitrite Negative (Negative); Specific Gravity 1.025 (1.005-1.025); Urobilinogen 0.2 EU/dL (Up TO 0.2)
[2022-02-15 01:52] LABS: Bacteria Few HPF (Negative); C & S Indicated? No; Crystals Few Calcium Oxalate HPF (Negative); Epithelial Cells Few HPF (Negative); Mucus Negative (Negative); RBC 0-2 HPF (0-2); WBC 0-2 HPF (0-5)
[2022-02-15] MEDS: methylPREDNISolone SUCC 125 MG VIAL 80 MG IVP ×2 (03:37→11:15)
[2022-02-15] MEDS: Normal Saline Flush 10 ML SYR IVP ×6 (03:38→18:58)
[2022-02-15] MEDS: VANCOMYCIN 500 MG in Normal Saline 100 ML 66.67 MG IVPB ×3 (03:38→20:40)
[2022-02-15 05:31] LABS: Abs Immature Grans 0.17 10^3/uL (0.0-0.06); Absolute Basophil Count 0.01 10^3/uL (0.0-0.2); Absolute Lymphocyte Count 0.22 10^3/uL (1.2-3.4); Absolute Monocyte Count 0.23 10^3/uL (0.1-0.8); Absolute Neutrophil Count 9.59 10^3/uL (1.2-6.7); Basophils % 0.1; HCT 35.7 % (36.0-46.0); HGB 11.3 g/dL (11.2-15.7); Immature Grans % 1.7; Lymphocytes % 2.2; MCH 29.8 pg (27.0-33.0); MCHC 31.7 % (32.0-36.0); MCV 94 fL (80-95); MPV 8.8 fL (8.0-11.0); Monocytes % 2.3; Neutrophils % 93.7; Platelet Count 214 10^3/uL (130-400); RBC 3.79 10^6/uL (3.93-5.22); RDW 13.3 % (11.7-14.6); RDW-SD 46.4 fL; WBC 10.22 10^3/uL (4.4-10.8)
[2022-02-15 05:43] LABS: Anion Gap 8.2 mmol/L (3-11); BUN 13 mg/dL (7-18); CO2 28.8 mmol/L (21.0-32.0); CREATININE 0.8 mg/dL (0.55-1.02); Calcium 8.7 mg/dL (8.5-10.1); Chloride 96 mmol/L (98-107); Estimated GFR 76.31 (mL/min/1.73m2); Glucose 196 mg/dL (74-106); Magnesium 1.6 mg/dL (1.8-2.4); Potassium 4.3 mmol/L (3.5-5.1); Sodium 133 mmol/L (136-145)
[2022-02-15 06:04] LABS: Procalcitonin 0.2 ng/mL
[2022-02-15] MEDS: Acetylcysteine 600 MG CAP PO (07:47)
[2022-02-15] MEDS: Roflumilast 500 MCG TAB PO (07:47)
[2022-02-15] MEDS: Cholecalciferol (Vitamin D3) 1,000 UNIT TAB 3000 UNITS PO (07:47)
[2022-02-15] MEDS: Amitriptyline 10 MG TAB PO ×2 (07:47→20:48)
[2022-02-15] MEDS: Omeprazole 20 MG CAPCR 40 MG PO (07:47)
[2022-02-15] MEDS: Sertraline 100 MG TAB PO (07:48)
[2022-02-15] MEDS: Salt Supplement (BUFFERED) TAB 1 TAB PO ×2 (07:48→20:48)
[2022-02-15] MEDS: Sucralfate 1 GM TAB PO ×4 (07:48→22:38)
[2022-02-15] MEDS: Gabapentin 100 MG CAP PO ×3 (07:48→20:48)
[2022-02-15] MEDS: Enoxaparin 40 MG/0.4 ML SYR SC (07:48)
[2022-02-15] MEDS: Celecoxib 200 MG CAP PO ×2 (07:48→20:48)
[2022-02-15] MEDS: clonazePAM 1 MG TAB PO ×2 (07:56→20:48)
[2022-02-15] MEDS: Albuterol/Ipratropium 3 ML UPD VIAL UPD ×3 (09:22→20:49)
[2022-02-15] MEDS: Tiotropium Bromide-Respimat 10 PUFF INH 2 PUFF IH (09:23)
[2022-02-15] MEDS: Budesonide/Formoterol 80/4.5 6.9 GM 60 PUFF INH IH ×2 (09:24→20:47)
[2022-02-15] MEDS: DOXYCYCLINE 100 MG in Normal Saline 100 ML IVPB ×2 (09:51→22:38)
[2022-02-15] MEDS: MAGNESIUM SULFATE 2 GM/50 ML BAG IVPB (11:05)
[2022-02-15] MEDS: Magnesium Chloride 64 MG TABCR PO ×2 (12:07→20:48)
[2022-02-15] MEDS: traMADol 50 MG TAB PO ×2 (12:54→22:38)
--- NOTE | 2022-02-15 13:01 | PDOC.CMPRO ---
- If Service Date Differs Date of service: 02/15/22 Time of Service: 13:01 Care Management Progress Note S/O:Laney was sitting up in bed when CM met with her. She informed CM that she was not having a good day. She stated that she woke up this morning in a lot of pain and that it had not resolved. She also stated that her doctor had ordered a new muscle relaxer, Flexeril, for her muscle spasms, but that she had not started it yet. She asked if it could be ordered and the provider agreed. Laney did share that her breathing is better but that she does not feel ready to be discharged yet. A:Laney is a 76 year old woman admitted on 02/12/22 with hospital acquired pneumonia P:Laney will return home, possibly with new home health services. She will follow up with her PCP and plan of care and transport with family. CM will support Laney and her discharge needs.
--- NOTE | 2022-02-15 14:02 | PGE_ITS ---
Date of Service Date of service: 02/15/22 Time of Service: 14:02 Assessment and Plan Assessment and plan (1) Hospital-acquired bacterial pneumonia: Status: Acute Assessment and plan: Laney has recurrent respiratory symptoms with severe COPD and chronically on home O2 at 2 L/min per nasal cannula on inhaler therapies. She will be continued on vancomycin, Zosyn and doxycycline. She will be treated for her COPD exacerbation. Patient is a DNR/DNI. Waiting for results of MRSA swab - if negative stop vanco and discharge with po abx when stable (2) Acute exacerbation of chronic obstructive pulmonary disease (COPD): Start date: 02/12/22 Status: Acute Assessment and plan: Patient changed to PO prednisone and maximize respiratory treatments with outpatient treatment to continue and more aggressive nebulizer treatments while hospitalized. Adjust oxygen supplementation but watch for CO2 retention. PT consult (3) Hypoxemia: Start date: 02/12/22 Status: Acute Assessment and plan: Chronic hypoxemia but worsened with pneumonia with adjustment of oxygen supplementation as needed during her hospital stay. She will return home on oxygen therapy. (4) Hyponatremia: Status: Chronic Assessment and plan: NA 133 - Continue monitoring while in the hospital on salt tablets. 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 (5) Chronic pain syndrome: Status: Chronic Assessment and plan: Continue outpatient pain management watching for respiratory suppression with the patient on narcotic patch as well as benzodiazepines. Risk-benefit must of been assessed for her to be on this medical regimen. She is a DNR/DNI. She does not appear to have a history of falling at home and her son does attend her closely. (6) DVT prophylaxis: Status: Acute Assessment and plan: enoxaparin (7) Discharge planning issues: Status: Acute Assessment and plan: When stable and MRSA neg, discharge with oral antibiotics to home with possible PT, pending assessment Palliative care consult Discussed with Dr Carmona Subjective Subjective Patient reports: no new complaints, feels better, tolerating a regular diet, bowel movement, shortness of breath and afebrile; denies diarrhea, nausea or vomiting Interval history since last seen: SOB improved, at baseline Exam Narrative Exam Narrative: General: cachectic appearing, in no acute distress and alert and oriented x3, pleasant, she does speak in full sentences without increased WOB, no cough while I was present 30 degree in bed, supine HEENT: Normocephalic, eyes with pupils equal react to light symmetrically, extraocular movement intact and sclera anicteric. Oropharynx with dry mucosa and poor dentition with missing teeth and remaining teeth carious and discolored. Neck: Supple without JVD. Back: Loss of lordotic curve lumbar spine, decreased range of motion, slightly kyphotic posture with well-healed scar over the base of the neck and the top of the thoracic spine. No CVA tenderness. Lungs: Poor aeration diffusely with poor air movement and no expiratory crackles noted, upper lungs mostly clear with more air movement Breast: Exam deferred. Heart: Distant heart sounds with regular rate and rhythm no appreciable murmur or gallop. Abdomen: Scaphoid contour, soft nontender to palpation with no palpable hepatosplenomegaly. Genitalia/rectal: Exam deferred. Extremities: Without clubbing, cyanosis or pitting edema. Fair capillary refill. Skin: Pale, warm and dry. Fair turgor. Neuro: Cranial nerves II through XII gross intact, no focalizing motor deficits or tremor. Psych: Normal mood and affect. No abnormal thought processes. Remote and recent memory intact. Objective Last Vital Signs Temp 37.4 C 02/15/22 11:32 Pulse 103 H 02/15/22 11:32 Resp 20 02/15/22 11:32 BP 96/57 L 02/15/22 11:32 Pulse Ox 94 02/15/22 11:32 Laboratory Results - last 24 hr 02/14/22 02/14/22 02/14/22 15:55 18:32 18:55 WBC RBC Hgb Hct MCV MCH MCHC RDW Plt Count MPV Immature Gran % Neutrophils % Lymphocytes % Monocytes % Eosinophils % Basophils % Nucleated RBC % Absolute Neutrophils Absolute Lymphocytes Absolute Monocytes Absolute Eosinophils Absolute Basophils Sodium Potassium Chloride Carbon Dioxide Anion Gap BUN Creatinine Est GFR (CKD-EPI 2020) Glucose Calcium Magnesium Troponin I < 50 Procalcitonin Urine Color Yellow Urine Clarity Clear Urine pH 6.0 Ur Specific [place] 1.025 Urine Protein 30 H Urine Ketones Negative Urine Blood Negative Urine Nitrite Negative Urine Bilirubin Negative Urine Urobilinogen 0.2 Ur Leukocyte Esterase Negative Urine RBC 0-2 Urine WBC 0-2 Ur Epithelial Cells Few Urine Crystals Few Calcium Oxalate Urine Bacteria Few Urine Mucus Negative Ur Culture Indicated? No Urine Glucose Negative Vancomycin Trough 11.1 02/14/22 02/15/22 02/15/22 18:55 05:19 05:19 WBC RBC Hgb Hct MCV MCH MCHC RDW Plt Count MPV Immature Gran % Neutrophils % Lymphocytes % Monocytes % Eosinophils % Basophils % Nucleated RBC % Absolute Neutrophils Absolute Lymphocytes Absolute Monocytes Absolute Eosinophils Absolute Basophils Sodium 133 L Potassium 4.3 Chloride 96 L Carbon Dioxide 28.8 Anion Gap 8.2 BUN 13 Creatinine 0.8 Est GFR (CKD-EPI 2020) 76.31 Glucose 196 H Calcium 8.7 Magnesium 1.6 L Troponin I < 50 Procalcitonin 0.2 Urine Color Urine Clarity Urine pH Ur Specific [place] Urine Protein Urine Ketones Urine Blood Urine Nitrite Urine Bilirubin Urine Urobilinogen Ur Leukocyte Esterase Urine RBC Urine WBC Ur Epithelial Cells Urine Crystals Urine Bacteria Urine Mucus Ur Culture Indicated? Urine Glucose Vancomycin Trough 02/15/22 05:19 WBC 10.22 RBC 3.79 L Hgb 11.3 Hct 35.7 L MCV 94 MCH 29.8 MCHC 31.7 L RDW 13.3 Plt Count 214 MPV 8.8 Immature Gran % 1.7 Neutrophils % 93.7 Lymphocytes % 2.2 Monocytes % 2.3 Eosinophils % 0.0 Basophils % 0.1 Nucleated RBC % 0.0 Absolute Neutrophils 9.59 H Absolute Lymphocytes 0.22 L Absolute Monocytes 0.23 Absolute Eosinophils 0.00 Absolute Basophils 0.01 Sodium Potassium Chloride Carbon Dioxide Anion Gap BUN Creatinine Est GFR (CKD-EPI 2020) Glucose Calcium Magnesium Troponin I Procalcitonin Urine Color Urine Clarity Urine pH Ur Specific [place] Urine Protein Urine Ketones Urine Blood Urine Nitrite Urine Bilirubin Urine Urobilinogen Ur Leukocyte Esterase Urine RBC Urine WBC Ur Epithelial Cells Urine Crystals Urine Bacteria Urine Mucus Ur Culture Indicated? Urine Glucose Vancomycin Trough
[2022-02-15] MEDS: Acetaminophen 325 MG TAB PO (17:23)
[2022-02-15] MEDS: Methocarbamol 750 MG TAB PO ×2 (18:58→22:38)
[2022-02-16] VITALS (10 sets, daily range): BP systolic 107–115; BP diastolic 60–68; PULSE 78–108; RESP 1–19; TEMP 36–36.9; O2SAT 91–98
[2022-02-16] MEDS: VANCOMYCIN 500 MG in Normal Saline 100 ML 66.67 MG IVPB (04:05)
[2022-02-16] MEDS: PIPERACILLIN/TAZO 3.375 GM in Normal Saline 50 ML IVPB ×2 (05:49→11:29)
[2022-02-16] MEDS: Normal Saline Flush 10 ML SYR IVP ×2 (05:50→07:44)
[2022-02-16 06:50] LABS: Abs Immature Grans 0.05 10^3/uL (0.0-0.06); Absolute Basophil Count 0.01 10^3/uL (0.0-0.2); Absolute Lymphocyte Count 0.71 10^3/uL (1.2-3.4); Absolute Monocyte Count 0.61 10^3/uL (0.1-0.8); Absolute Neutrophil Count 5.53 10^3/uL (1.2-6.7); Basophils % 0.1; HCT 36.5 % (36.0-46.0); HGB 11.5 g/dL (11.2-15.7); Immature Grans % 0.7; Lymphocytes % 10.3; MCH 29.6 pg (27.0-33.0); MCHC 31.5 % (32.0-36.0); MCV 94 fL (80-95); MPV 8.9 fL (8.0-11.0); Monocytes % 8.8; Neutrophils % 80.1; Platelet Count 188 10^3/uL (130-400); RBC 3.88 10^6/uL (3.93-5.22); RDW 13.5 % (11.7-14.6); RDW-SD 46.6 fL; WBC 6.91 10^3/uL (4.4-10.8)
[2022-02-16 07:07] LABS: Anion Gap 1.9 mmol/L (3-11); BUN 14 mg/dL (7-18); CO2 30.1 mmol/L (21.0-32.0); CREATININE 0.8 mg/dL (0.55-1.02); Calcium 8.4 mg/dL (8.5-10.1); Chloride 101 mmol/L (98-107); Estimated GFR 76.31 (mL/min/1.73m2); Glucose 101 mg/dL (74-106); Potassium 3.8 mmol/L (3.5-5.1); Sodium 133 mmol/L (136-145)
[2022-02-16] MEDS: Sertraline 100 MG TAB PO (07:41)
[2022-02-16] MEDS: Gabapentin 100 MG CAP PO ×3 (07:41→19:26)
[2022-02-16] MEDS: Sucralfate 1 GM TAB PO ×4 (07:41→21:23)
[2022-02-16] MEDS: predniSONE 20 MG TAB 40 MG PO (07:41)
[2022-02-16] MEDS: Amitriptyline 10 MG TAB PO ×2 (07:42→19:26)
[2022-02-16] MEDS: Roflumilast 500 MCG TAB PO (07:42)
[2022-02-16] MEDS: Omeprazole 20 MG CAPCR 40 MG PO (07:42)
[2022-02-16] MEDS: Acetylcysteine 600 MG CAP PO (07:42)
[2022-02-16] MEDS: Salt Supplement (BUFFERED) TAB 1 TAB PO ×2 (07:42→19:26)
[2022-02-16] MEDS: Celecoxib 200 MG CAP PO ×2 (07:42→19:26)
[2022-02-16] MEDS: Magnesium Chloride 64 MG TABCR PO ×2 (07:43→19:26)
[2022-02-16] MEDS: Enoxaparin 40 MG/0.4 ML SYR SC (07:43)
[2022-02-16] MEDS: Cholecalciferol (Vitamin D3) 1,000 UNIT TAB 3000 UNITS PO (07:43)
[2022-02-16] MEDS: clonazePAM 1 MG TAB PO ×2 (07:43→18:17)
[2022-02-16] MEDS: Tiotropium Bromide-Respimat 10 PUFF INH 2 PUFF IH (07:54)
[2022-02-16] MEDS: Albuterol/Ipratropium 3 ML UPD VIAL UPD ×3 (07:54→19:25)
[2022-02-16] MEDS: Budesonide/Formoterol 80/4.5 6.9 GM 60 PUFF INH IH ×2 (07:58→21:24)
[2022-02-16] MEDS: DOXYCYCLINE 100 MG in Normal Saline 100 ML IVPB (09:28)
[2022-02-16] MEDS: Normal Saline 500 ML 30 ML IV (09:28)
--- NOTE | 2022-02-16 09:28 | IN_ITS ---
PT Notes Visit Reasons: Hospital aquired pneumonia Inpatient Physical Therapy Evaluation Date: 02/16/2022 Referring Doctor: Olga Swenson PT Orders: PT CONSULT: Evaluation and treatment Precautions:Standard Patient Profile/Admitting Diagnosis: Hospital aquired pneumonia (1) Hospital-acquired bacterial pneumonia: ?Status:?Acute ? ? ? Assessment and plan: Laney has? recurrent respiratory symptoms with severe COPD and chronically on home O2 at 2 L/min per nasal cannula on inhaler therapies.? She will be continued on vancomycin, Zosyn and doxycycline.? She will be treated for her COPD exacerbation. Patient is a DNR/DNI. Waiting for results of MRSA swab - if negative stop vanco and discharge with po abx when stable (2) Acute exacerbation of chronic obstructive pulmonary disease (COPD): ? ? ? Start date: 02/12/22 ?Status:?Acute PMHX: COPD, 2 years ago had fractures and surgery of right LE, lamenectomy of c- spine, on O2 Social History/Home Situation: Lives with sonand , 5 stairs outside and 5 inside Current Functional Limitations: SOB, walking has rollator, balance Equipment Owned/DME: Rollator Subjective: Decreased breathing, can't bring anything up, I have no energy to take a shower Objective: General Observation: Pt. supine in bed with HOB elevated, able to answer questions Mental Status: A and O x3 pleasant Pain: 10/10 back, neck Vital Signs: 2 L N/C Strength: Right Upper Extremity: limted ROM, WFL Left Upper Extremity: Limted ROM WFL Right Lower Extremity: Limted ROM Q 3- H 3 hip flex 3 DF 4 PF 3- Left Lower Extremity: Limited ROM Q 3 H 3 Sensation: decreased sensation both LE Bed Mobility/Transfers: needs to have HOB elevated, needs side rail to go supine to sit and holds side rail to maintain sitting balance Sit to stand to RW needs V/C for hand placement and tends to lean back better after instruction stand to sit: needs v/c for hand placement Gait: Ambulates x 6 steps with RW, unsteady with v/c to lean onto walker with tendency to lean backward and unable to straighten right LE due to previous hx of fx femur. Balance: Static Sitting: able to sit without holding on to rail but reaches for rail, fair Dynamic Sitting: fair Static Standing: fair, tedency to lean back then grabs for walker. Standing x 30 sec v/c to lean forward Dynamic Standing: poor Special Tests: Mobility Limitations Standardized Measure [facility]-PAC 6 clicks Basic Mobility Inpatient Short Form: Raw Score: [] Standardized Score: [] CMS Score: [] Informed Consent/Education: Patient instructed in purpose of PT consult and plan of care. Assessment: Patient is a 76 year old female referred to physical therapy services with the diagnosis of Hospital aquired pneumonia, COPD. Patient presents with clinical signs and symptoms consistent with deconditioning secondary to Hospital aquired pneumonia, COPD, as demonstrated by the following impairment level findings:weakness of LE, poor endurance, limited mobility and balance. . Impairments are contributing to the following functional limitations: AMPAC score. Patient is assessed as a Low 96589 complexity based on the following: Goals: Goals X1 week 1. Supine-Sit Indep 2. Sit-Supine Indep 3. Sit-Stand Indep 4. Stand-Sit Indep 5. Bed-Chair Indep 6. Chair-Bed Indep 7. Gait Ambulate with RW x 60' 8. Stairs up and down 4 steps with rail and least assistance 9. Independent with home exercise program 10. Balance good dynamic sitting and standing Plan of Care/Treatment Plan: 1-2x/day, 7 days/week x 1 week. Plan of care has been reviewed with the ASSOCIATE PROFESSOR [employer]ISTORY providing the service under Physical Therapy direction. Initiate Physical Therapy intervention for strengthening, bed mobility, transfers, gait, stairs, balance training, use of assistive device. LAQ 2x5, marching 2x5, sit to stand 3x, transfer to commode and back x1, amb with RW x 6', standing balance double feet. DISCHARGE RECOMMENDATIONS: [x] Home with services [specify]PT, ?OT poor endurance [] SNF for continued rehabilitation []Pt. states she would rather go home as she has had previous bad experiances. TREATMENT CODE/TIME: 45'
[2022-02-16] MEDS: traMADol 50 MG TAB PO ×2 (10:34→19:32)
--- NOTE | 2022-02-16 15:36 | W.PM.PROGNOT ---
Date of Service Date of service: 02/16/22 Time of Service: 15:36 Assessment and Plan Assessment and plan (1) Hospital-acquired bacterial pneumonia: Status: Acute Assessment and plan: Laney has recurrent respiratory symptoms with severe COPD and chronically on home O2 at 2 L/min per nasal cannula on inhaler therapies. She will be downstepped to doxy and augmentin to complete a 7 day course. She will be treated for her COPD exacerbation. Patient is a DNR/DNI. Waiting for results of MRSA swab - if negative stop vanco and discharge with po abx when stable (2) Acute exacerbation of chronic obstructive pulmonary disease (COPD): Start date: 02/12/22 Status: Acute Assessment and plan: Patient changed to PO prednisone and maximize respiratory treatments with outpatient treatment to continue and more aggressive nebulizer treatments while hospitalized. Adjust oxygen supplementation but watch for CO2 retention. PT consult (3) Hypoxemia: Start date: 02/12/22 Status: Acute Assessment and plan: Chronic hypoxemia but worsened with pneumonia with adjustment of oxygen supplementation as needed during her hospital stay. She will return home on oxygen therapy. (4) Hyponatremia: Status: Chronic Assessment and plan: NA 133 - Continue monitoring while in the hospital on salt tablets. 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 (5) Chronic pain syndrome: Status: Chronic Assessment and plan: Continue outpatient pain management watching for respiratory suppression with the patient on narcotic patch as well as benzodiazepines. Risk-benefit must of been assessed for her to be on this medical regimen. She is a DNR/DNI. She does not appear to have a history of falling at home and her son does attend her closely. (6) DVT prophylaxis: Status: Acute Assessment and plan: enoxaparin (7) Discharge planning issues: Status: Acute Assessment and plan: discharge to home with services. Palliative care consult Discussed with Dr Reyes Subjective Subjective Patient reports: no new complaints, feels better, tolerating liquids well, tolerating a regular diet, shortness of breath and afebrile Exam Const General: cooperative and ill appearing chronically Nutritional Appearance: thin Orientation: alert, awake and oriented x3 HENMT Head: normal to inspection, normocephalic and atraumatic Mouth: oral mucosae normal Resp Auscultation: diminished lung sounds bilaterally Cardio Rate: regular rate Rhythm: regular rhythm GI Inspection: normal to inspection Palpation: soft Auscultation: normal bowel sounds Skin General skin exam: no rashes or lesions noted Neuro General: patient alert, patient awake, patient oriented x3 and moves all extremities Extrem General: normal to inspection, full ROM and no pedal edema Psych Mental Status: mental status grossly normal Speech and Movement: speech and movement normal Mood: congruent mood Affect: normal affect Objective Last Vital Signs Temp 36.0 C L 02/16/22 11:27 Pulse 97 H 02/16/22 11:27 Resp 18 02/16/22 14:37 BP 107/60 02/16/22 11:27 Pulse Ox 95 02/16/22 11:27 Laboratory Results - last 24 hr 02/16/22 02/16/22 06:17 06:17 WBC 6.91 RBC 3.88 L Hgb 11.5 Hct 36.5 MCV 94 MCH 29.6 MCHC 31.5 L RDW 13.5 Plt Count 188 MPV 8.9 Immature Gran % 0.7 Neutrophils % 80.1 Lymphocytes % 10.3 Monocytes % 8.8 Eosinophils % 0.0 Basophils % 0.1 Nucleated RBC % 0.0 Absolute Neutrophils 5.53 Absolute Lymphocytes 0.71 L Absolute Monocytes 0.61 Absolute Eosinophils 0.00 Absolute Basophils 0.01 Sodium 133 L Potassium 3.8 Chloride 101 Carbon Dioxide 30.1 Anion Gap 1.9 L BUN 14 Creatinine 0.8 Est GFR (CKD-EPI 2020) 76.31 Glucose 101 Calcium 8.4 L Magnesium 2.0
--- NOTE | 2022-02-16 16:50 | PT.INTREAT ---
PT Notes Visit Reasons: Hospital aquired pneumonia Date: 02/16/2022 PRECAUTIONS: Activity as tolerated, Fall SUBJECTIVE: Pt pleasant and agreeable to therapy. OBJECTIVE:?GAIT? Assistive Device: LEAD CARGO MOVER contact on gait belt ? Weight bearing: Full Assist: LEAD CARGO MOVER with contact on gait belt? Distance:?50'x2? Deviation: slow, decreased step height and step length? ASSESSMENT: Patient tolerated session without 02 support, pt lurching backward multiple time during the course of the gait training requiring CGA to prevent pt from falling. PLAN: Continue with gait and transfer training and global strengthening, as tolerated, for improved mobility. TREATMENT CODE/TIME: 30 minutes; [id number] (03:00pm)
--- NOTE | 2022-02-16 17:05 | PDOC.CMPRO ---
- If Service Date Differs Date of service: 02/16/22 Time of Service: 17:05 Care Management Progress Note S/O: Laney was eating her dinner when CM met with her. She stated that per provider, she will likely be medically ready for discharge tomorrow or the next day. CM discussed discharge options with her, and she stated that she feels well supported at home, and does not want to go to a facility. She reported that she is also agreeable to services, as she has declined this option in the past and feels that it would be helpful to have more support at home post discharge. CM will continue to follow. A:Laney is a 76 year old woman admitted on 02/12/22 with hospital acquired pneumonia P:Laney will return home, possibly with new home health services. She will follow up with her PCP and plan of care and transport with family. CM will support Laney and her discharge needs.
--- NOTE | 2022-02-16 17:43 | CHAPLAIN ---
Laney and I remembered each other from her recent admission. She told be about what brought her back to [facility]. Laney lives in an apartment above his son's family and is very involved with her four grandchildren. She also has nieces and nephews that she keeps in touch with by phone. Her son is a former signal worker and telephone clerk in the [employer]. She is frustrated being back in [facility] so quickly, but said she was running a high temperature and called the ambulance.
[2022-02-16] MEDS: Doxycycline Hyclate 100 MG CAP PO (19:26)
[2022-02-16] MEDS: Amoxicillin 875/Clav. 125 TAB PO (19:26)
[2022-02-17] VITALS (7 sets, daily range): BP systolic 116–122; BP diastolic 64–68; PULSE 70–90; RESP 1–19; TEMP 36.4–36.9; O2SAT 92–100
[2022-02-17] MEDS: Acetylcysteine 600 MG CAP PO (07:48)
[2022-02-17] MEDS: predniSONE 20 MG TAB 40 MG PO (07:48)
[2022-02-17] MEDS: Amitriptyline 10 MG TAB PO (07:48)
[2022-02-17] MEDS: Salt Supplement (BUFFERED) TAB 1 TAB PO (07:48)
[2022-02-17] MEDS: Celecoxib 200 MG CAP PO (07:48)
[2022-02-17] MEDS: Gabapentin 100 MG CAP PO ×2 (07:48→14:31)
[2022-02-17] MEDS: Amoxicillin 875/Clav. 125 TAB PO (07:49)
[2022-02-17] MEDS: Omeprazole 20 MG CAPCR 40 MG PO (07:49)
[2022-02-17] MEDS: clonazePAM 1 MG TAB PO ×2 (07:49→14:31)
[2022-02-17] MEDS: Sertraline 100 MG TAB PO (07:49)
[2022-02-17] MEDS: Cholecalciferol (Vitamin D3) 1,000 UNIT TAB 3000 UNITS PO (07:49)
[2022-02-17] MEDS: Magnesium Chloride 64 MG TABCR PO (07:49)
[2022-02-17] MEDS: Doxycycline Hyclate 100 MG CAP PO (07:49)
[2022-02-17] MEDS: Enoxaparin 40 MG/0.4 ML SYR SC (07:50)
[2022-02-17] MEDS: Normal Saline Flush 10 ML SYR IVP (07:50)
[2022-02-17] MEDS: Sucralfate 1 GM TAB PO ×2 (08:01→11:08)
[2022-02-17] MEDS: Roflumilast 500 MCG TAB PO (08:01)
[2022-02-17] MEDS: Budesonide/Formoterol 80/4.5 6.9 GM 60 PUFF INH IH (08:20)
[2022-02-17] MEDS: Tiotropium Bromide-Respimat 10 PUFF INH 2 PUFF IH (08:21)
[2022-02-17] MEDS: Albuterol/Ipratropium 3 ML UPD VIAL UPD ×2 (08:23→14:26)
--- NOTE | 2022-02-17 13:48 | W.PM.DS.N ---
Date of service: 02/17/22 Time of Service: 16:43 DS: Diagnosis Discharge Diagnosis (1) Hospital-acquired bacterial pneumonia: Status: Acute (2) Acute exacerbation of chronic obstructive pulmonary disease (COPD): Status: Acute (3) Hypoxemia: Status: Acute (4) Hyponatremia: Status: Chronic (5) Chronic pain syndrome: Status: Chronic Discharge Plan Disposition Patient Disposition: HOME W/HOME HEALTH SERVICE Condition: Stable Discharge Details Reason For Visit: Hospital aquired pneumonia Admit Date/Time: 02/12/22 19:48 Admit Provider: Orlando Majano Attending Provider: Orlando Majano Primary Care Provider: Ralph Rahman Hospital Course Hospital Course: This is a 76-year-old female patient who was recently was hospitalized for respiratory symptoms and pneumonia treated for 11-day course.? She grew a pathogen that was sensitive to Augmentin and completed that course in the hospital before discharge.?On return she was noted to be hypoxic and febrile. Work up in the ED shows bilateral infiltrates, negative for covid. she was treated with triple antibiotic therapy for healthcare associated pneumonia. She was also placed on steroids for possible copd component. She responded to therapy and was downstepped to oral antibiotics. she completed 5 day course of doxycycline and will be discharged home on augmentin to complete a 7 day course. she has been working with PT and slowly progressing, home health PT. She will taper steroids as directed. discussed with Dr Reyes. Home Meds and New Rx's Prescriptions: New amoxicillin-pot clavulanate 875-125 mg Tablet 1 tab PO BID Qty: 7 0RF Spiriva Respimat 2.5 mcg/actuation Mist 2 puff inhalation DAILY Qty: 4 0RF prednisone 20 mg Tablet See Taper PO DAILY Qty: 50 0RF Taper: Prednisone 10mg taper 40 mg Daily for 2 Days and 0 Hour 30 mg Daily for 2 Days and 0 Hour 20 mg Daily for 2 Days and 0 Hour 10 mg Daily for 2 Days and 0 Hour 5 mg Daily for 2 Days and 0 Hour Continued (DME) Oxygen Tank See Rx Instructions .ROUTE .MEDSUPPLY Qty: 1 Rx Instructions: As directed celecoxib 200 mg capsule 200 mg PO BID Qty: 60 5RF omeprazole 40 mg capsule,delayed release(DR/EC) 40 mg PO DAILY Qty: 30 5RF PreserVision AREDS-2 250-90-40-1 mg Capsule 2 cap PO DAILY buprenorphine [Butrans] 5 mcg/hour patch weekly 1 patch transdermal Q7D Qty: 4 0RF albuterol sulfate [Proventil HFA] 90 mcg/actuation HFA aerosol inhaler 2 puff IH Q6H PRN (Reason: shortness of breath or wheezing) Qty: 6.7 3RF amitriptyline 10 mg tablet 10 mg PO BID Qty: 180 3RF Rx Instructions: dose increase 08/22/20 Daliresp 500 mcg tablet 500 mcg PO DAILY Qty: 90 3RF acetylcysteine 600 mg capsule See Rx Instructions .ROUTE .COMPLEX Qty: 90 3RF Dose Instruction: TAKE ONE CAPSULE BY MOUTH EVERY DAY Rx Instructions: TAKE ONE CAPSULE BY MOUTH EVERY DAY Trelegy Ellipta 100-62.5-25 mcg blister with device 1 inh IH DAILY Qty: 28 11RF sertraline 100 mg tablet 100 mg PO DAILY Qty: 90 3RF acetaminophen 500 mg tablet 1,000 mg PO Q8H PRN (Reason: pain) Qty: 90 8RF clonazepam 1 mg tablet 1 mg PO BID PRN (Reason: anxiety) Qty: 60 2RF Salonpas 1 EACH adhesive patch,medicated 1 ea Topical .DAILY X 12 HOURS naloxone [Narcan] 4 mg/actuation spray,non-aerosol 1 spray KELL Q2-3M PRN (Reason: opioid overdose) Qty: 2 0RF Rx Instructions: spray 1 dose into ONE nostril; alternate nostrils w each dose until help arrives cholecalciferol (vitamin D3) [Vitamin D3] 2,000 unit Tablet 3,000 unit PO DAILY gabapentin 100 mg Capsule 100 mg PO TID Qty: 90 0RF sucralfate 1 gram Tablet 1 g PO AC & HS Qty: 120 0RF Thermotabs 287-180-15 mg Tablet 1 tab PO BID Qty: 60 0RF Discharge Instructions Instructions: COPD (Chronic Obstructive Pulmonary Disease) (DC), Hospital Acquired Pneumonia (DC) Stand Alone Forms: Nursing Discharge Form Referrals: Ralph Rahman MD [Primary Care Provider] - 02/23/22 1:20 pm Activity:: Activity as Tolerated Equipment/Supplies:: No Equipment Needed Diet:: As Tolerated Discharge Orders Discharge Orders: Discharge Order (Routine); Ordered 02/17/22 Ordered By: Danielle Johnson DS: Summary Time Spent with Patient providing and/or coordinating discharge services: Greater than 30 minutes Status at Discharge Functional status at discharge: uses cane/walker Overall status at discharge: patient is progressing back to baseline Mental Status: mental status grossly normal Speech and Movement: speech and movement normal Mood: congruent mood Affect: normal affect Exam Const General: cooperative and ill appearing chronically Nutritional Appearance: thin Orientation: alert, awake and oriented x3 HENMT Head: normal to inspection, normocephalic and atraumatic Mouth: oral mucosae normal Resp Auscultation: diminished lung sounds bilaterally Cardio Rate: regular rate Rhythm: regular rhythm GI Inspection: normal to inspection Palpation: soft Auscultation: normal bowel sounds Skin General skin exam: no rashes or lesions noted Neuro General: patient alert, patient awake, patient oriented x3 and moves all extremities Extrem General: normal to inspection, full ROM and no pedal edema Psych Mental Status: mental status grossly normal Speech and Movement: speech and movement normal Mood: congruent mood Affect: normal affect DS: Data Vitals/I&O Vitals and I&O: Vital Signs Temperature 36.7 C 02/17/22 11:41 Temperature Source Tympanic 02/17/22 12:57 Pulse 90 02/17/22 11:41 Pulse Rhythm Regular 02/17/22 07:40 Pulse 93 H 02/13/22 08:20 Respiratory Rate 16 02/17/22 11:41 Respiratory Effort 02/17/22 07:40 Respiratory Depth Normal 02/17/22 07:40 Respiratory Pattern Normal 02/17/22 07:40 Blood Pressure 122/64 02/17/22 11:41 Blood Pressure Mean 74 02/13/22 08:15 Blood Pressure Position Sitting 02/12/22 18:11 Pulse Oximetry 93 02/17/22 11:41 Oxygen Delivery Method Nasal Cannula 02/17/22 11:41 Oxygen Flow Rate 1.5 02/17/22 11:41 Fraction of Inspired Oxygen (FIO2) 93 02/15/22 09:22 Pain Level 10 02/17/22 11:41 Comment 02/17/22 12:57 Intake & Output 02/16/22 02/17/22 02/17/22 23:59 11:59 23:59 Intake Total 1030 / 1820 370 / 370 Output Total 300 / 300 Balance 1030 / 1420 70 / 70 Weight 59.9 kg Intake: IV 550 / 860 Oral 480 / 960 360 / 360 Output: Urine 300 / 300 Other: Urine Color Yellow Urine Appearance Clear Urine Odor Normal Comment urine amount unable to be measured because pt went to the bathroom multiple times today on the commode, and urine was missed with stool at this time. Mixed with stool Urine mixed with stool. Stool Size Copious Stool Characteristics Liquid Liquid Brown Brown Voiding Methods Bedside Commode Bedside Commode Bedside Commode Data Completed and Pending Labs on day of discharge: Preliminary micro results at discharge 02/12/22 19:10 Blood Culture - Preliminary Blood NO GROWTH 96 HOURS 02/12/22 18:35 Blood Culture - Preliminary Blood NO GROWTH 96 HOURS PFSH All Active Problems (Updated 02/15/22 @ 20:45 by Olga Swenson NP) Discharge planning issues (Acute) DVT prophylaxis (Acute) Hypoxemia (Acute) Hospital-acquired bacterial pneumonia (Acute) Hyponatremia (Chronic) Epigastric pain (Acute) Discharge planning issues (Acute) DVT prophylaxis (Acute) COPD with acute exacerbation (Acute) Acute bronchitis (Acute) Odynophagia (Acute) Dysphagia (Acute) GERD (gastroesophageal reflux disease) (Chronic) Chronic obstructive pulmonary disease (Chronic) Chronic pain syndrome (Chronic 12/15/16) CONTROLLED SUBSTANCE AGREEMENT 10/03/18 Lumbosacral spondylosis without myelopathy (Acute) Fibromyalgia (Acute) Fall (Acute) Low back pain (Acute) Fever (Acute) Discharge planning issues (Acute) Acute exacerbation of chronic obstructive pulmonary disease (COPD) (Acute) T12 compression fracture (Acute) Ongoing leg pain (Acute) continue nSaid prn tramadol see surgeon next week consider topical analgesic on surrounding skin Hemoptysis (Acute) History of cataract removal with insertion of prosthetic lens (Acute 06/05/15) History of chest tube placement (Acute) Status post appendectomy (Acute) Status post laminectomy (Acute) Pain from implanted hardware (Chronic 10/30/18) S/P Hardware removal Bacterial pneumonia (Acute 11/23/13) Chronic anxiety (Chronic 06/22/13) Chronic emphysema syndrome (Chronic) Chronic pain in right shoulder (Chronic 11/20/13) Moderate protein malnutrition (Chronic 11/20/13) Contusion of right knee, initial encounter (Acute) Neck pain (Acute) Irritable bowel syndrome with diarrhea (Chronic) Cervical neck pain with evidence of disc disease (Chronic 06/22/13) History of tobacco abuse (Chronic) Anxiety (Chronic) LLL pneumonia (Acute ~03/30/18) Medical History (Updated 02/15/22 @ 20:45 by Olga Swenson NP) DNI (do not intubate) DNR (do not resuscitate) POLST (Physician Orders for Life-Sustaining Treatment) Surgical History Appendectomy CHEST TUBE Extraction of cataract 06/05/15; LEFT EYE; DR. ARAUZ H/O section Hx of hysterectomy LAMINECTOMY CERVICAL SPINE Family History Mother , at age 89, cardiac problems No problems noted. Father , at 81 Cancer Throat cancer Brother , at 71 Colon cancer Sister Diabetes DM2 Sister Diabetes DM2 Son No problems noted. Social History Smoking/Tobacco Use Status: Former Tobacco Use Quit Date: 09/16/13 Pack-years: 50 Smoking risk assessment performed?: Yes Alcohol Intake: former Year quit: 1979 Drug use: Never Substance use type: does not use Household members: none Housing: apartment Other: living along; missing her family; lonely Do you feel safe at home: Yes Do you feel safe in your relationship?: No Additional Social history: 16 years ago. Originally from [place], moved here to be near son and grand children. On disability due to chronic back pain. 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 Approximate 75 pack year history of tobacco. No alcohol or illicit drug use endorsed.
--- NOTE | 2022-02-17 15:29 | PT.INTREAT ---
Date of service: 02/17/22 Time of Service: 10:15 PT Notes Visit Reasons: Hospital aquired pneumonia Inpatient Physical Therapy Treatment Note [facility] Date: 02/17/2022 PRECAUTIONS: Activity as tolerated SUBJECTIVE: Laney is pleasant and agreeable to participating in PT. She reports that she is feeling better, and that she has good family support at home. OBJECTIVE: PAIN: No c/o pain BED MOBILITY/TRANSFERS Supine-sit: S Sit-supine: S Sit-stand: SBA Stand-sit: SBA GAIT Assistive Device: FWW Weight bearing: Full Assist: SBA Distance: 150' Deviation: Slow pacing, short step height and length ASSESSMENT: Patient tolerated session well with minimal c/o increased fatigue with gait training. She tolerated a progression in gait distance with FWW support and SBA. PLAN: Patient to discharge to home later today, per provider. Recommend follow up with PT. TREATMENT CODE/TIME: 24 minutes; 31158 x2 (10:15)
--- NOTE | 2022-02-17 16:23 | PDOC.HHF2F ---
Home Health Certification Home Health Certification: 1. Encounter Date and Reason I certify that Laney Stephens was seen by Danielle Johnson on 02/17/22 and that I had a [id number] encounter with this patient that meets the physician face to face encounter requirements. 2. Clinical Findings Supporting Skilled Need and Homebound Status I certify that home health services are medically necessary, include either intermittent penitentiary and/or physical/speech therapy, and that this patient is homebound in that absences from the home require considerable and taxing effort and are infrequent or of short duration, or are attributable to the need to receive medical care. [X] (a) Attached documentation from encounter provides clinical findings supporting skilled need and homebound status (including what assistance patient requires to leave the home). The encounter with the patient was in whole, or in part, for the following medical condition, which is the primary reason for home health care: Hospital acquired pneumonia Physical Therapy: Routine PT and OT evaluation, home safety evaluation, gait and transfer training and global strengthening for improved mobility and fall risk prevention Homebound: patient is unable to safely leave the house unattended d/t unsteady gait, decreased strength and endurance 3. Certification and Authentication I certify that I composed the above information based on my clinical judgement relating to this patient's medical condition and, if applicable, clinical findings communicated to me by the NPP or inpatient physician who performed the Home Health Referral. All further orders will be obtained through __AQUILES ARENAS MD_(Community Based Physician - PCP)
[2022-02-17] MEDS: Bacitracin 1 PACKET TP (16:44)
--- NOTE | 2022-02-17 16:48 | PDOC.CMDIS ---
- If Service Date Differs Date of service: 02/17/22 Time of Service: 16:48 LACE Index Scoring Tool - Questions: Length of Stay (in days): 4 - 6 Acuity (Admit via E.D.?): Yes Comorbidities: Chronic Pulmonary Disease E.D. Visits: 2 - Answers: Total Score: 11 Risk of Readmission: High Risk Care Management Discharge Reason for Hospitalization: hospital acquired pneumonia Discharge Plan: Laney returned home today with new orders for DIMITRY RN, PT, OT. Her son will drive her home via private vehicle after he gets out of work this afternoon. She will follow up with her PCP and discharge plan of care. She feels well supported at home, and is happy to be going home, as she declined the offer to go to rehab. Patient/Family Education Needs: Review discharge instructions and limitations, discussion of self care needs including ask me three and goals of care. Services Needed at Discharge: Home Health Care Services (DIMITRY RN, PT, OT)
--- NOTE | 2022-02-17 17:40 | INDS_ITS ---
Date of service: 02/17/22 PT Notes Visit Reasons: Hospital aquired pneumonia Physical Therapy Inpatient Discharge Summary Date: 02/17/2022 Date of service: 02/16/2022 through 02/17/2022 This is a clinical summary of care provided for the duration of dates listed above. No charge was made in the completion of this documentation. Referring Doctor: Olga Swenson PT Orders: PT CONSULT: Evaluation and treatment Precautions:Standard Patient Profile/Admitting Diagnosis:??Hospital aquired pneumonia (1) Hospital-acquired bacterial pneumonia: ?Status:?Acute ? ? ? Assessment and plan: Laney has? recurrent respiratory symptoms with severe COPD and chronically on home O2 at 2 L/min per nasal cannula on inhaler therapies.? She will be continued on vancomycin, Zosyn and doxycycline.? She will be treated for her COPD exacerbation. Patient is a DNR/DNI. Waiting for results of MRSA swab - if negative stop vanco and discharge with po abx when stable (2) Acute exacerbation of chronic obstructive pulmonary disease (COPD): ? ? ? Start date: 02/12/22 ?Status:?Acute PMHX: COPD, 2 years ago had fractures and surgery of right LE, lamenectomy of c- spine, on O2 Social History/Home Situation: Lives with sonand , 5 stairs outside and 5 inside Current Functional Limitations: SOB, walking has rollator, balance Equipment Owned/DME: Rollator Subjective:?NT. See most recent [employer]AMP REPLACER notes. Objective:? General Observation: NT. See most recent [employer] REPLACER notes. Mental Status: NT. See most recent [employer] LAMP REPLACER notes. Pain: NT. See most recent [employer]ES[employer] LAMP REPLACER notes. Vital Signs: NT. See most recent FL[employer]ORESCENT LAMP REPLACER notes. Strength: Right Upper Extremity: limted ROM, WFL Left Upper Extremity: Limted ROM WFL Right Lower Extremity: Limted ROM Q 3- H 3 hip flex 3 DF 4 PF 3- Left Lower Extremity: Limited ROM Q 3 H 3 Sensation:?decreased sensation both LE BED MOBILITY/TRANSFERS? Supine-sit: S Sit-supine: S Sit-stand: SBA? Stand-sit: SBA ? GAIT? Assistive Device: FWW? Weight bearing: Full Assist: SBA ? Distance: 150' ? Deviation: Slow pacing, short step height and length? Balance:? Static Sitting: able to sit without holding on to rail but reaches for rail, fair Dynamic Sitting: fair Static Standing: fair, tedency to lean back then grabs for walker.? Standing x 30 sec v/c to lean forward Dynamic Standing: poor Assessment:?? Patient demonstrates functional mobility improvement during this epsiode care. Goals: Goals X1 week 1. Supine-Sit Indep NOT MET 2. Sit-Supine Indep NOT MET 3. Sit-Stand Indep NOT MET 4. Stand-Sit Indep NOT MET 5. Bed-Chair Indep NOT MET 6. Chair-Bed Indep NOT MET 7. Gait Ambulate with RW x 60' NOT MET 8. Stairs up and down 4 steps with rail and least assistance NOT MET 9. Independent with home exercise program NOT MET 10. Balance good dynamic sitting and standing NOT MET DISCHARGE RECOMMENDATIONS: [x] ? [facility] vs. SNF TREATMENT CODE/TIME: AL Thank you for the opportunity to participate in the care of this patient. Teresita Lopez PT, DPT, CLT [facility] [place], [place]
== END 2022-02-17 17:11 | disposition home health service (06) | DRG 194 ==
LOC: ER 20:18 → MS 02-13 08:34
PROVIDERS: Internal Medicine; Nurse Practitioner Family; Admitting Provider Family Medicine; Emergency Provider Student in an Organized Health Care Education/Training Program; PCP Family Medicine; Visit Provider Family Medicine
DX: J15.9 Unspecified bacterial pneumonia (principal); E44.0 Moderate protein-calorie malnutrition; E87.1 Hypo-osmolality and hyponatremia; J44.0 Chronic obstructive pulmonary disease with (acute) lower respiratory infection; J44.1 Chronic obstructive pulmonary disease with (acute) exacerbation; Y95 Nosocomial condition; Z99.81 Dependence on supplemental oxygen; Z87.891 Personal history of nicotine dependence; Z66 Do not resuscitate; R09.02 Hypoxemia; G89.4 Chronic pain syndrome; F41.9 Anxiety disorder, unspecified; F32.A Depression, unspecified; R10.13 Epigastric pain; R13.10 Dysphagia, unspecified; K21.9 Gastro-esophageal reflux disease without esophagitis; M47.817 Spondylosis without myelopathy or radiculopathy, lumbosacral region; M54.50 Low back pain, unspecified; Z68.21 Body mass index [BMI] 21.0-21.9, adult; K58.0 Irritable bowel syndrome with diarrhea
CPT/HCPCS: 36415; 76942; 80048; 80053; 82805; 84145; 87040; 87081; 87637; 93005; 94640; 96365; 96366; 96367; 96375; 97161; 97530; 99285; J1650; 71045; 80202; 81003; 81015; 83605; 83735; 83880; 84484; 85025; 87086; 93010; 94667; 99223; 99232; 99233; 99239; J2405; J2543; J2930; J7512; J7620

== ENCOUNTER 2022-04-11 00:51 | Inpatient (IN) | payer MEDICARE, MEDICAID, SELFPAY ==
[2022-04-11] VITALS (64 sets, daily range): BP systolic 102–145; BP diastolic 45–87; PULSE 76–124; RESP 2–26; TEMP 36.6–37.9; O2SAT 75–100
--- NOTE | 2022-04-11 00:45 | DI.RAD_ITS ---
Exam(s) XR PORTABLE CHEST AP EXAM: XR PORTABLE CHEST AP CLINICAL HISTORY: sob. TECHNIQUE: 2D digital imaging was performed. COMPARISON: CR XR PORTABLE CHEST AP from 01/21/2022 CR,XR XR PORTABLE CHEST AP from 02/12/2022 FINDINGS: Single AP portable view. Heart size is upper normal. The mediastinum is not widened. Hyperinflation of the lungs again noted. In addition to COPD findings, there is patchy infiltrate in the right lung. Lesser amount of increased markings in the left lung. No pleural effusions. No pu lmonary edema. No pneumothorax. IMPRESSION: Patchy infiltrates more so in the right than left lung. Superimposed upon COPD.No obvious pleural ef fusions. DATA REPOSITORY: RADIATION DOSE DELIVERED:
--- NOTE | 2022-04-11 00:45 | RT.EKG_ITS ---
APPROVED REPORT Exam: Resting ECG Reason for Exam: sob Patient Location: E HR:113 bpm ECG Measurements Heart Rate 113 AXIS VA 152 P 84 QRSd 75 QRS 73 QT 362 T 73 QTc 498 Conclusion Sinus tachycardia...rate> 99 Physician: no stemi, inverted t waves unchaged
--- NOTE | 2022-04-11 00:59 | W.ED.GENAD ---
Discharge Plan Disposition Patient Disposition: Admit to [facility] Condition: Serious Discharge Details Clinical Impression: COPD exacerbation, Hypercarbia, Hospital acquired PNA, Influenza A Admit Date/Time: 04/11/22 02:24 Admit Provider: Orlando Shukla Attending Provider: Orlando Shukla Primary Care Provider: Ralph Rahman ED Provider: Filiberto Boone Medical Decision Making This is a 76-year-old female with a past medical history of being a palliative care patient who is DNR/DNI, longstanding COPD, fibromyalgia, GERD, multiple admissions for her COPD exacerbations, who presents today for evaluation of increased respiratory effort. She is on a baseline of 2 L of home oxygen, but over the last 24 hours has been increased to 4 L. Family states that she has been complaining of some shoulder pain chronically over the last few weeks and has had a notable decline in her respiratory status over the last 2 days. This evening things continue to worsen, EMS was called and she was brought to the ER for further evaluation. Patient is currently not talking at all as she states that she feels very short of breath. She is a bit confused. No other complaints at this time. No other historical factors. Exam demonstrates a confused and quiet female, she does follow commands. She is not speaking but states that this is because she is short of breath. Oxygenation is around 92% on 4 L. Breath sounds are rhonchorous and diminished otherwise. Differential is highest for elevated PCO2, pneumonia, and COPD exacerbation. Will give breathing treatments, Solu-Medrol, monitor closely and reassess. 1:36 AM Chest x-ray shows right middle lobe pneumonia, patient has a notable white count of 18 with left shift. pH is 7.25 with a PCO2 of 100. EKG stable, troponin normal, proBNP mildly elevated at 900, but clinically she does not show signs of significant fluid overload. Lactate normal. Patient has been admitted within the last 60 days. We will start broad-spectrum antibiotics for hospital-acquired pneumonia with vancomycin, Zosyn and azithromycin. The patient has been started on BiPAP. She is tolerating this well. Discussed the case with hospitalist Dr. Shukla, he agrees with the plan. I have extensively reviewed the treatment plan with the patient. I have addressed all patient concerns at this time. I have also discussed the plan with the admitting physician and they agree with the current assessment and plan and have agreed to assume responsibility for the patient. All parties demonstrate verbal understanding and agreement with our assessment and plan at this time. The documentation in this chart was dictated using [employer] dictation software. Please excuse any dictation errors. FINDINGS: Lungs: Nonspecific mild right mid and lower lung zone pulmonary infiltrate. Pleural spaces: Unremarkable. No pleural effusion. No pneumothorax. Heart/Mediastinum: Unremarkable. No cardiomegaly. Bones/joints: Unremarkable. IMPRESSION: Nonspecific mild right mid and lower lung zone pulmonary infiltrate. At Thank you for allowing us to participate in the care of your patient. Dictated and Authenticated by: Ross Gutierrez MD 04/11/2022 1:26 AM Eastern Time ([place] & [place]) HPI General Date/Time Provider Initiated Documentation: 04/11/22 00:58. HPI Narrative: This is a 76-year-old female with a past medical history of being a palliative care patient who is DNR/DNI, longstanding COPD, fibromyalgia, GERD, multiple admissions for her COPD exacerbations, who presents today for evaluation of increased respiratory effort. She is on a baseline of 2 L of home oxygen, but over the last 24 hours has been increased to 4 L. Family states that she has been complaining of some shoulder pain chronically over the last few weeks and has had a notable decline in her respiratory status over the last 2 days. This evening things continue to worsen, EMS was called and she was brought to the ER for further evaluation. Patient is currently not talking at all as she states that she feels very short of breath. She is a bit confused. No other complaints at this time. No other historical factors. Related Data Home Medications Medication Instructions Recorded Confirmed camphor-methyl salicylate-menthol 1 ea topical .DAILY X 12 HOURS 11/10/16 03/05/22 topical patch (Salonpas topical patch) Oxygen #1 ea 12/12/18 03/05/22 naloxone 4 mg/actuation nasal 1 spray intranasal Q2-3M PRN 04/18/19 03/05/22 spray (Narcan) opioid overdose #2 ea cholecalciferol (vitamin D3) 50 3,000 unit PO DAILY 05/10/19 03/05/22 mcg (2,000 unit) tablet (Vitamin D3) albuterol sulfate 90 mcg/actuation 2 puff inhalation Q6H PRN 04/15/20 03/05/22 aerosol inhaler (Proventil HFA) shortness of breath or wheezing #6.7 grams amitriptyline 10 mg tablet 10 mg PO BID #180 tabs 03/19/21 03/05/22 roflumilast 500 mcg tablet 500 mcg PO DAILY #90 tab-caps 06/02/21 03/05/22 (Daliresp) acetylcysteine 600 mg capsule See Rx Instructions .Route 06/04/21 03/05/22 .COMPLEX #90 caps fluticasone fur. 100 mcg-umeclid 1 inh inhalation DAILY #28 ea 07/22/21 03/05/22 62.5 mcg-vilant 25 mcg inhalat.powder (Trelegy Ellipta) sertraline 100 mg tablet 100 mg PO DAILY #90 tab-caps 08/14/21 03/05/22 vit C 250 mg-vit E 90 mg-zinc 40 2 cap PO DAILY 08/21/21 03/05/22 mg-copper 1 [id number] capsule (PreserVision AREDS-2) acetaminophen 500 mg tablet 1,000 mg PO Q8H PRN pain #90 tabs 09/15/21 03/05/22 celecoxib 200 mg capsule 200 mg PO BID #60 caps 10/20/21 03/05/22 omeprazole 40 mg capsule,delayed 40 mg PO DAILY #30 caps 10/20/21 03/05/22 release sodium chloride-potassium chloride 1 tab PO BID #60 tabs 01/31/22 03/05/22 287 mg-180 mg-15 mg tablet (Thermotabs) tiotropium bromide 2.5 2 puff inhalation DAILY #4 grams 02/17/22 03/05/22 mcg/actuation mist for inhalation (Spiriva Respimat) clonazepam 1 mg tablet 1 mg PO TID PRN anxiety #60 tabs 02/23/22 03/05/22 sucralfate 1 gram tablet 1 g PO AC & HS #120 tabs 02/23/22 03/05/22 diphenhydramine HCl 50 mg capsule 50 mg PO QHS #1 cap 03/05/22 03/05/22 buprenorphine 5 mcg/hour weekly 1 patch transdermal Q7D #4 ea 03/12/22 transdermal patch (Butrans) gabapentin 100 mg capsule 100 mg PO TID #90 caps 04/06/22 Previous Rx's Medication Instructions Recorded naloxone 4 mg/actuation nasal 1 spray intranasal Q2-3M PRN 04/18/19 spray (Narcan) opioid overdose #2 ea albuterol sulfate 90 mcg/actuation 2 puff inhalation Q6H PRN 04/15/20 aerosol inhaler (Proventil HFA) shortness of breath or wheezing #6.7 grams amitriptyline 10 mg tablet 10 mg PO BID #180 tabs 03/19/21 roflumilast 500 mcg tablet 500 mcg PO DAILY #90 tab-caps 06/02/21 (Daliresp) acetylcysteine 600 mg capsule See Rx Instructions .Route 06/04/21 .COMPLEX #90 caps fluticasone fur. 100 mcg-umeclid 1 inh inhalation DAILY #28 ea 07/22/21 62.5 mcg-vilant 25 mcg inhalat.powder (Trelegy Ellipta) sertraline 100 mg tablet 100 mg PO DAILY #90 tab-caps 08/14/21 acetaminophen 500 mg tablet 1,000 mg PO Q8H PRN pain #90 tabs 09/15/21 celecoxib 200 mg capsule 200 mg PO BID #60 caps 10/20/21 omeprazole 40 mg capsule,delayed 40 mg PO DAILY #30 caps 10/20/21 release sodium chloride-potassium chloride 1 tab PO BID #60 tabs 01/31/22 287 mg-180 mg-15 mg tablet (Thermotabs) tiotropium bromide 2.5 2 puff inhalation DAILY #4 grams 02/17/22 mcg/actuation mist for inhalation (Spiriva Respimat) clonazepam 1 mg tablet 1 mg PO TID PRN anxiety #60 tabs 02/23/22 sucralfate 1 gram tablet 1 g PO AC & HS #120 tabs 02/23/22 diphenhydramine HCl 50 mg capsule 50 mg PO QHS #1 cap 03/05/22 buprenorphine 5 mcg/hour weekly 1 patch transdermal Q7D #4 ea 03/12/22 transdermal patch (Butrans) gabapentin 100 mg capsule 100 mg PO TID #90 caps 04/06/22 Allergies Allergy/AdvReac Type Severity Reaction Status Date / Time No Known Allergies Allergy Verified 02/13/22 07:59 General Stated Complaint: RespSymp MCKAYLA: 3 Review of Systems All systems reviewed & are unremarkable except as noted in HPI and below PFSH All Active Problems (Updated 04/11/22 @ 03:42 by Filiberto Boone DO) Influenza A (Acute) COPD exacerbation (Acute) Hypercarbia (Acute) Hospital acquired PNA (Acute) Advanced care planning/counseling discussion (Acute) Palliative care patient (Acute) Hypoxemia (Acute) Hospital-acquired bacterial pneumonia (Acute) Hyponatremia (Chronic) Epigastric pain (Acute) Discharge planning issues (Acute) DVT prophylaxis (Acute) COPD with acute exacerbation (Acute) Acute bronchitis (Acute) Odynophagia (Acute) Dysphagia (Acute) GERD (gastroesophageal reflux disease) (Chronic) Chronic obstructive pulmonary disease (Chronic) Chronic pain syndrome (Chronic 12/15/16) CONTROLLED SUBSTANCE AGREEMENT 10/03/18 Lumbosacral spondylosis without myelopathy (Acute) Fibromyalgia (Acute) Fall (Acute) Low back pain (Acute) Fever (Acute) Discharge planning issues (Acute) Acute exacerbation of chronic obstructive pulmonary disease (COPD) (Acute) T12 compression fracture (Acute) Ongoing leg pain (Acute) continue nSaid prn tramadol see surgeon next week consider topical analgesic on surrounding skin Hemoptysis (Acute) History of cataract removal with insertion of prosthetic lens (Acute 06/05/15) History of chest tube placement (Acute) Status post appendectomy (Acute) Status post laminectomy (Acute) Pain from implanted hardware (Chronic 10/30/18) S/P Hardware removal Bacterial pneumonia (Acute 11/23/13) Chronic anxiety (Chronic 06/22/13) Chronic emphysema syndrome (Chronic) Chronic pain in right shoulder (Chronic 11/20/13) Moderate protein malnutrition (Chronic 11/20/13) Contusion of right knee, initial encounter (Acute) Neck pain (Acute) Irritable bowel syndrome with diarrhea (Chronic) Cervical neck pain with evidence of disc disease (Chronic 06/22/13) History of tobacco abuse (Chronic) Anxiety (Chronic) LLL pneumonia (Acute ~03/30/18) Medical History (Updated 04/11/22 @ 03:42 by Filiberto Boone DO) DNI (do not intubate) DNR (do not resuscitate) POLST (Physician Orders for Life-Sustaining Treatment) Surgical History Appendectomy CHEST TUBE Extraction of cataract 06/05/15; LEFT EYE; DR. ARAUZ H/O section Hx of hysterectomy LAMINECTOMY CERVICAL SPINE Family History Mother , at age 89, cardiac problems No problems noted. Father , at 81 Cancer Throat cancer Brother , at 71 Colon cancer Sister Diabetes DM2 Sister Diabetes DM2 Son No problems noted. Social History Smoking/Tobacco Use Status: Former Tobacco Use Quit Date: 09/16/13 Pack-years: 50 Smoking risk assessment performed?: Yes Alcohol Intake: former Year quit: 1979 Drug use: Never Substance use type: does not use Household members: none Housing: apartment Do you feel safe at home: Yes Do you feel safe in your relationship?: No Additional Social history: 16 years ago. Originally from [place], moved here to be near son and grand children. Lives in [place] apartment [place]. Enjoys contact with 4 grandchildren throughout the day (they are homeschooled and her home much of the time). Bedbound approximately 22 hours a day. On disability due to chronic back pain. 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 Approximate 75 pack year history of tobacco. No alcohol or illicit drug use endorsed. Exam Narrative Exam Narrative: 1.Const: Well-nourished, Well-developed, appearing stated age 2.Eyes: PERRL, no conjunctival injection, and symmetrical lids. 3.ENT: Atraumatic external nose and ears. Notably dry MM. Neck: Symmetric, trachea midline, No thyromegaly. 4.CVS: +S1/S2, No murmurs or gallops. Peripheral pulses 2+ and equal in all extremities. Brisk capillary refill in all extremities. 5.RESP: Diffuse wheezes and rhonchi with notably diminished breath sounds throughout 6.GI: Soft, Nontender/Nondistended, No hepatosplenomegaly. No guarding or rebound. 7.MSK: Normocephalic/Atraumatic, Extremities w/o deformity or ttp No cyanosis or clubbing, Normal movement of all extremities, no pitting edema 8.Skin: Warm, Dry. No rashes or lesions. 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 Sensation grossly intact, no focal neurologic deficits. 10.Psych: (AAO) x3. Appropriate mood and affect Course Vital Signs Vital signs: Vital Signs Temperature 36.6 C 04/11/22 00:51 Pulse 124 H 04/11/22 00:51 Respiratory Rate 26 H 04/11/22 00:51 Pulse Oximetry 100 04/11/22 00:51 Temperature 36.6 C 04/11/22 00:51 Temperature Source Temporal Artery Scan 04/11/22 00:51 Pulse 124 H 04/11/22 00:51 Respiratory Rate 26 H 04/11/22 00:51 Blood Pressure Position Sitting 04/11/22 00:51 Pulse Oximetry 100 04/11/22 00:51 Oxygen Delivery Method Nasal Cannula 04/11/22 00:51 Oxygen Flow Rate 4 04/11/22 00:51
[2022-04-11] MEDS: Albuterol/Ipratropium 3 ML UPD VIAL 6 ML UPD (01:05)
[2022-04-11] MEDS: methylPREDNISolone SUCC 125 MG VIAL IVP (01:05)
[2022-04-11 01:06] LABS: O2 Sat (Venous) 79 %; pH (Venous) 7.25 (7.31-7.41); pO2 (Venous) 47 mmHg
[2022-04-11 01:07] LABS: Abs Immature Grans 0.07 10^3/uL (0.0-0.06); Absolute Monocyte Count 0.45 10^3/uL (0.1-0.8); Basophils % 0.3; HCT 50.3 % (36.0-46.0); HGB 15.1 g/dL (11.2-15.7); Immature Grans % 0.4; Lymphocytes % 2.7; MCH 28.8 pg (27.0-33.0); MCV 96 fL (80-95); MPV 9.1 fL (8.0-11.0); Monocytes % 2.4; Neutrophils % 94.2; Platelet Count 249 10^3/uL (130-400); RBC 5.25 10^6/uL (3.93-5.22); RDW 13.3 % (11.7-14.6); RDW-SD 47.7 fL; WBC 18.57 10^3/uL (4.4-10.8)
[2022-04-11 01:09] LABS: pCO2 (Venous) > 100 mmHg (41-51)
[2022-04-11 01:10] LABS: Lactate 0.8 mmol/L (0.6-1.4)
[2022-04-11 01:15] LABS: Absolute Basophil Count 0.06 10^3/uL (0.0-0.2); Absolute Neutrophil Count 17.49 10^3/uL (1.2-6.7)
--- NOTE | 2022-04-11 01:27 | DI.VRAD_ITS ---
PROCEDURE INFORMATION: Exam: XR Chest Exam date and time: 04/11/2022 12:46 AM Age: 76 years old Clinical indication: Shortness of breath TECHNIQUE: Imaging protocol: Radiologic exam of the chest. Views: 1 view. COMPARISON: CR XR PORTABLE CHEST AP 02/12/2022 6:28 PM FINDINGS: Lungs: Nonspecific mild right mid and lower lung zone pulmonary infiltrate. Pleural spaces: Unremarkable. No pleural effusion. No pneumothorax. Heart/Mediastinum: Unremarkable. No cardiomegaly. Bones/joints: Unremarkable. IMPRESSION: Nonspecific mild right mid and lower lung zone pulmonary infiltrate. At Dictated and Authenticated by: Ross Gutierrez MD. Ordering:VI De Los Santos MD
[2022-04-11 01:31] LABS: TSH (W/Ref FT4) 0.23 uIU/mL (0.36-3.74); Troponin I < 50 ng/L (<or=60)
[2022-04-11 01:34] LABS: ALT 8 U/L (14-59); AST 20 U/L (15-37); Albumin 3.4 g/dL (3.4-5.0); Alkaline Phosphatase 93 U/L (46-116); Anion Gap -1.00001 mmol/L (3-11); BUN 10 mg/dL (7-18); Bilirubin, Total 0.4 mg/dL (0.2-1.0); CO2 > 45.0 mmol/L (21.0-32.0); CREATININE 0.6 mg/dL (0.55-1.02); Calcium 9.6 mg/dL (8.5-10.1); Chloride 95 mmol/L (98-107); Estimated GFR 92.97 (mL/min/1.73m2); Glucose 173 mg/dL (74-106); NT-proBNP 989 pg/mL (<300); Sodium 139 mmol/L (136-145); Total Protein 8.2 g/dL (6.4-8.2)
[2022-04-11 01:41] LABS: COVID-19 PCR Negative (Negative); Influenza A PCR Positive (Negative); Influenza B PCR Negative (Negative); RSV PCR Negative (Negative)
[2022-04-11 01:49] LABS: Source Nasopharynx
[2022-04-11 01:54] LABS: Bilirubin Small (Negative); Blood Small (Negative); Clarity Sl Cloudy (Clear); Glucose Negative (Negative); Ketones 40 mg/dL (Negative); Leukocyte Esterase Negative (Negative); Nitrite Negative (Negative); Specific Gravity >= 1.030 (1.005-1.025); Urobilinogen 0.2 EU/dL (Up TO 0.2)
[2022-04-11] MEDS: PIPERACILLIN/TAZO 3.375 GM in Normal Saline 50 ML IVPB ×4 (02:00→20:06)
[2022-04-11 02:01] LABS: FREE T4 1.36 ng/dL (0.76-1.46)
[2022-04-11 02:01] LABS: Bacteria Few HPF (Negative); C & S Indicated? No; Casts 5-10 Hyaline LPF (Negative); Crystals Few Amorphous HPF (Negative); Epithelial Cells Rare HPF (Negative); Mucus Moderate (Negative); WBC 0-2 HPF (0-5)
--- NOTE | 2022-04-11 02:01 | HPE_ITS ---
Date of service: 04/11/22 Time of Service: 02:01 Assessment and Plan Assessment and plan (1) COPD exacerbation: Status: Acute Assessment and plan: Respiratory insufficiency, multifactorial, entailing COPD, influenza and likely bacteriall superinfection. Will continue BiPAP (will recheck VBG), steroids and updrafts, antibiotics (can probably do without Vanco, will continue Zosyn and Zithromax) and add Tamiflu. Home meds unconfirmed at present, will hold pending confirmation. As above remains DNR/DNI History of Present Illness History of Present Illness Chief Complaint: SOB Narrative: 76 female with h/o COPD, on home O2 2-3L, usual sats approx 88-92% per son. Unkn own flu vaccine status. Comes in tonight with several days of scant cough, weakness and increasing oxygen requirements. No fever or CP. In ER initial findings of note for O2 sat 92% on 4L, diminished and rhonchorous breath sounds, white count 18 with left shift, VBG demonstrating pH 7.25 with pCO2 100; CXR with RML/RLL infiltrates and Flu positive. Patient given duonebs, steroids, Vanco, Zosyn and Zithromax and placed on BiPAP. I was asked to evaluate for admission. Patient has been non-verbal due (she indicates) to SOB. During my interview she nods yes or no to questions. States continues to feel SOB, no CP (has chronic shoulder pain which is unchanged). Note that patient is DNR/DNI. Review of Systems Narrative: per HPI PFSH All Active Problems COPD exacerbation (Acute) Hypercarbia (Acute) Hospital acquired PNA (Acute) Advanced care planning/counseling discussion (Acute) Palliative care patient (Acute) Hypoxemia (Acute) Hospital-acquired bacterial pneumonia (Acute) Hyponatremia (Chronic) Epigastric pain (Acute) Discharge planning issues (Acute) DVT prophylaxis (Acute) COPD with acute exacerbation (Acute) Acute bronchitis (Acute) Odynophagia (Acute) Dysphagia (Acute) GERD (gastroesophageal reflux disease) (Chronic) Chronic obstructive pulmonary disease (Chronic) Chronic pain syndrome (Chronic 12/15/16) CONTROLLED SUBSTANCE AGREEMENT 10/03/18 Lumbosacral spondylosis without myelopathy (Acute) Fibromyalgia (Acute) Fall (Acute) Low back pain (Acute) Fever (Acute) Discharge planning issues (Acute) Acute exacerbation of chronic obstructive pulmonary disease (COPD) (Acute) T12 compression fracture (Acute) Ongoing leg pain (Acute) continue nSaid prn tramadol see surgeon next week consider topical analgesic on surrounding skin Hemoptysis (Acute) History of cataract removal with insertion of prosthetic lens (Acute 06/05/15) History of chest tube placement (Acute) Status post appendectomy (Acute) Status post laminectomy (Acute) Pain from implanted hardware (Chronic 10/30/18) S/P Hardware removal Bacterial pneumonia (Acute 11/23/13) Chronic anxiety (Chronic 06/22/13) Chronic emphysema syndrome (Chronic) Chronic pain in right shoulder (Chronic 11/20/13) Moderate protein malnutrition (Chronic 11/20/13) Contusion of right knee, initial encounter (Acute) Neck pain (Acute) Irritable bowel syndrome with diarrhea (Chronic) Cervical neck pain with evidence of disc disease (Chronic 06/22/13) History of tobacco abuse (Chronic) Anxiety (Chronic) LLL pneumonia (Acute ~03/30/18) Medical History DNI (do not intubate) DNR (do not resuscitate) POLST (Physician Orders for Life-Sustaining Treatment) Surgical History Appendectomy CHEST TUBE Extraction of cataract 06/05/15; LEFT EYE; DR. ARAUZ H/O section Hx of hysterectomy LAMINECTOMY CERVICAL SPINE Family History Mother , at age 89, cardiac problems No problems noted. Father , at 81 Cancer Throat cancer Brother , at 71 Colon cancer Sister Diabetes DM2 Sister Diabetes DM2 Son No problems noted. Social History Smoking/Tobacco Use Status: Former Tobacco Use Quit Date: 09/16/13 Pack-years: 50 Smoking risk assessment performed?: Yes Alcohol Intake: former Year quit: 1979 Drug use: Never Substance use type: does not use Household members: none Housing: apartment Do you feel safe at home: Yes Do you feel safe in your relationship?: No Additional Social history: 16 years ago. Originally from [place], moved here to be near son and grand children. Lives in [place] apartment [place]. Enjoys contact with 4 grandchildren throughout the day (they are homeschooled and her home much of the time). Bedbound approximately 22 hours a day. On disability due to chronic back pain. 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 Approximate 75 pack year history of tobacco. No alcohol or illicit drug use endorsed. Meds Allergies and Home Medications Allergies Allergy/AdvReac Type Severity Reaction Status Date / Time No Known Allergies Allergy Verified 02/13/22 07:59 Home Medications Medication Instructions Recorded Confirmed Type camphor-methyl salicylate-menthol 1 ea topical .DAILY X 12 HOURS 11/10/16 03/05/22 History topical patch (Salonpas topical patch) Oxygen #1 ea 12/12/18 03/05/22 History naloxone 4 mg/actuation nasal 1 spray intranasal Q2-3M PRN 04/18/19 03/05/22 Rx spray (Narcan) opioid overdose #2 ea cholecalciferol (vitamin D3) 50 3,000 unit PO DAILY 05/10/19 03/05/22 History mcg (2,000 unit) tablet (Vitamin D3) albuterol sulfate 90 mcg/actuation 2 puff inhalation Q6H PRN 04/15/20 03/05/22 Rx aerosol inhaler (Proventil HFA) shortness of breath or wheezing #6.7 grams amitriptyline 10 mg tablet 10 mg PO BID #180 tabs 03/19/21 03/05/22 Rx roflumilast 500 mcg tablet 500 mcg PO DAILY #90 tab-caps 06/02/21 03/05/22 Rx (Daliresp) acetylcysteine 600 mg capsule See Rx Instructions .Route 06/04/21 03/05/22 Rx .COMPLEX #90 caps fluticasone fur. 100 mcg-umeclid 1 inh inhalation DAILY #28 ea 07/22/21 03/05/22 Rx 62.5 mcg-vilant 25 mcg inhalat.powder (Trelegy Ellipta) sertraline 100 mg tablet 100 mg PO DAILY #90 tab-caps 08/14/21 03/05/22 Rx vit C 250 mg-vit E 90 mg-zinc 40 2 cap PO DAILY 08/21/21 03/05/22 History mg-copper 1 [id number] capsule (PreserVision AREDS-2) acetaminophen 500 mg tablet 1,000 mg PO Q8H PRN pain #90 tabs 09/15/21 03/05/22 Rx celecoxib 200 mg capsule 200 mg PO BID #60 caps 10/20/21 03/05/22 Rx omeprazole 40 mg capsule,delayed 40 mg PO DAILY #30 caps 10/20/21 03/05/22 Rx release sodium chloride-potassium chloride 1 tab PO BID #60 tabs 01/31/22 03/05/22 Rx 287 mg-180 mg-15 mg tablet (Thermotabs) tiotropium bromide 2.5 2 puff inhalation DAILY #4 grams 02/17/22 03/05/22 Rx mcg/actuation mist for inhalation (Spiriva Respimat) clonazepam 1 mg tablet 1 mg PO TID PRN anxiety #60 tabs 02/23/22 03/05/22 Rx sucralfate 1 gram tablet 1 g PO AC & HS #120 tabs 02/23/22 03/05/22 Rx diphenhydramine HCl 50 mg capsule 50 mg PO QHS #1 cap 03/05/22 03/05/22 Rx buprenorphine 5 mcg/hour weekly 1 patch transdermal Q7D #4 ea 03/12/22 Rx transdermal patch (Butrans) gabapentin 100 mg capsule 100 mg PO TID #90 caps 04/06/22 Rx Exam Narrative Exam Narrative: 145/66, 115, 36.6, 17, 100% last recorded, but 94% during my visit. HEENT atraumatic; neck supple; lungs diminished, coarse; heart tachy/regualr (distant); abdomen soft and NT; extremities w/o edema; neuro awake rrsponds yes or no appropriately and responds to commands, moves all 4s Results Labs Result diagrams: 04/11/22 00:44 04/11/22 00:44 Labs: Laboratory Results - last 24 hr 04/11/22 04/11/22 04/11/22 00:44 00:44 00:44 WBC RBC Hgb Hct MCV MCH MCHC RDW Plt Count MPV Immature Gran % Neutrophils % Lymphocytes % Monocytes % Eosinophils % Basophils % Nucleated RBC % Absolute Neutrophils Absolute Lymphocytes Absolute Monocytes Absolute Eosinophils Absolute Basophils VBG pH 7.25 L VBG pCO2 > 100 H* VBG pO2 47 VBG HCO3 Not Applicable VBG Total CO2 Not Applicable VBG O2 Saturation 79 VBG Base Excess Not Applicable VBG Lactate Sodium 139 Potassium 4.0 Chloride 95 L Carbon Dioxide > 45.0 H Anion Gap -1.09894 L BUN 10 Creatinine 0.6 Est GFR (CKD-EPI 2020) 92.97 Glucose 173 H Calcium 9.6 Total Bilirubin 0.4 AST 20 ALT 8 L Alkaline Phosphatase 93 Troponin I < 50 NT-Pro-B Natriuret Pep 989 H Total Protein 8.2 Albumin 3.4 TSH 0.23 L Free T4 1.36 Urine Color Urine Clarity Urine pH Ur Specific [place] Urine Protein Urine Ketones Urine Blood Urine Nitrite Urine Bilirubin Urine Urobilinogen Ur Leukocyte Esterase Urine Glucose COVID-19 Source SARS-CoV-2 (PCR) Influenza Type A (PCR) Influenza Type B (PCR) RSV (PCR) 04/11/22 04/11/22 04/11/22 00:44 00:44 01:00 WBC 18.57 H RBC 5.25 H Hgb 15.1 Hct 50.3 H MCV 96 H MCH 28.8 MCHC 30.0 L RDW 13.3 Plt Count 249 MPV 9.1 Immature Gran % 0.4 Neutrophils % 94.2 Lymphocytes % 2.7 Monocytes % 2.4 Eosinophils % 0.0 Basophils % 0.3 Nucleated RBC % 0.0 Absolute Neutrophils 17.49 H Absolute Lymphocytes 0.50 L Absolute Monocytes 0.45 Absolute Eosinophils 0.00 Absolute Basophils 0.06 VBG pH VBG pCO2 VBG pO2 VBG HCO3 VBG Total CO2 VBG O2 Saturation VBG Base Excess VBG Lactate 0.8 Sodium Potassium Chloride Carbon Dioxide Anion Gap BUN Creatinine Est GFR (CKD-EPI 2020) Glucose Calcium Total Bilirubin AST ALT Alkaline Phosphatase Troponin I NT-Pro-B Natriuret Pep Total Protein Albumin TSH Free T4 Urine Color Urine Clarity Urine pH Ur Specific [place] Urine Protein Urine Ketones Urine Blood Urine Nitrite Urine Bilirubin Urine Urobilinogen Ur Leukocyte Esterase Urine Glucose COVID-19 Source Nasopharynx SARS-CoV-2 (PCR) Negative Influenza Type A (PCR) Positive A Influenza Type B (PCR) Negative RSV (PCR) Negative 04/11/22 01:50 WBC RBC Hgb Hct MCV MCH MCHC RDW Plt Count MPV Immature Gran % Neutrophils % Lymphocytes % Monocytes % Eosinophils % Basophils % Nucleated RBC % Absolute Neutrophils Absolute Lymphocytes Absolute Monocytes Absolute Eosinophils Absolute Basophils VBG pH VBG pCO2 VBG pO2 VBG HCO3 VBG Total CO2 VBG O2 Saturation VBG Base Excess VBG Lactate Sodium Potassium Chloride Carbon Dioxide Anion Gap BUN Creatinine Est GFR (CKD-EPI 2020) Glucose Calcium Total Bilirubin AST ALT Alkaline Phosphatase Troponin I NT-Pro-B Natriuret Pep Total Protein Albumin TSH Free T4 Urine Color Yellow Urine Clarity Sl Cloudy Urine pH 6.0 Ur Specific [place] >= 1.030 H Urine Protein >=300 H Urine Ketones 40 H Urine Blood Small H Urine Nitrite Negative Urine Bilirubin Small H Urine Urobilinogen 0.2 Ur Leukocyte Esterase Negative Urine Glucose Negative COVID-19 Source SARS-CoV-2 (PCR) Influenza Type A (PCR) Influenza Type B (PCR) RSV (PCR) Last Vital Signs Temp 36.6 C 04/11/22 00:51 Pulse 115 H 04/11/22 01:01 Resp 17 04/11/22 01:50 BP 145/66 H 04/11/22 01:01 Pulse Ox 100 04/11/22 00:51
[2022-04-11 02:06] LABS: O2 Sat (Venous) 95 %; pH (Venous) 7.26 (7.31-7.41); pO2 (Venous) 82 mmHg
[2022-04-11 02:08] LABS: pCO2 (Venous) > 100 mmHg (41-51)
[2022-04-11] MEDS: AZITHROMYCIN 500 MG in Normal Saline 250 ML 250 MG IVPB (02:53)
[2022-04-11] MEDS: Albuterol/Ipratropium 3 ML UPD VIAL UPD ×6 (03:35→23:06)
[2022-04-11 06:03] LABS: HCO3 (Venous) 44 mmol/L (23-28); O2 Sat (Venous) 93 %; TCO2 (Venous) 40 mmol/L (24-29); pH (Venous) 7.31 (7.31-7.41); pO2 (Venous) 65 mmHg
[2022-04-11 06:05] LABS: BE (Venous) > 15 mmol/L (-2-3)
[2022-04-11 06:07] LABS: pCO2 (Venous) 86 mmHg (41-51)
[2022-04-11 08:20] LABS: Procalcitonin 0.6 ng/mL
[2022-04-11] MEDS: guaiFENesin 600 MG TABCR PO ×2 (08:28→20:03)
[2022-04-11] MEDS: Omeprazole 20 MG CAPCR 40 MG PO (08:28)
[2022-04-11] MEDS: Lactated Ringers 1,000 ML 75 ML IV (08:29)
[2022-04-11] MEDS: Oseltamivir 75 MG CAP PO (08:29)
[2022-04-11] MEDS: Benzonatate 100 MG CAP PO ×3 (08:29→20:03)
[2022-04-11] MEDS: Enoxaparin 40 MG/0.4 ML SYR SC (08:29)
[2022-04-11] MEDS: methylPREDNISolone SUCC 40 MG VIAL IVP (08:29)
--- NOTE | 2022-04-11 09:33 | NUR.NOTE ---
Nursing Note: Accessed patient chart to determine how many EKG orders were in the chart from the ED. There was an outstanding EKG in ordered status. There are no EKG's in the [facility] system that are outstanding. EKG order was deleted.
--- NOTE | 2022-04-11 13:07 | TELEP.MEDR_ITS ---
Date of service: 04/11/22 Time of Service: 13:08 Telepharmacy Home Med Rec Allergies Allergies: No Known Allergies Allergy (Verified 02/13/22 07:59) Interview Person Interviewed: Manuel Angel Quality Quality of Interview/Accuracy of Medication List: Good Sources Sources used to compile medication list: [employer] Medication List, Patient List and SureScripts Changes made to Home Medication List: ADDITIONS: Restasis 0.05% ou bid Calcium carbonate 7910-1847 mg po q6h prn heartburn Cranberry-ascorbic acid po qday Pepto-bismol 15 mL po q6h prn Doxylamine succinate 25 mg po qhs prn DELETIONS: Albuterol Amitriptyline Tiotropium inhaler CHANGES: NAC 600 mg po qday Clonazepam 1 mg po bid prn Additional Notes Additional Notes: Pt's fill hx indicates that pt should be out of NAC, Trelegy Ellipta, and sucralfate. Son reports that pt is very good about taking her meds every day. Cannot reach pt to assess use of prn medicines or OTCs. Recommended Changes Recommended Changes(reason for recommendation): None. Attestation: The home medication list is now updated to the best of my knowledge and is ready to be reconciled by the provider. Please contact the [facility] Med[facility] Reconciliation Pharmacist at for any questions.
[2022-04-11 13:37] LABS: Lab Add On Test DONE
[2022-04-11 13:45] LABS: Magnesium 1.9 mg/dL (1.8-2.4)
--- NOTE | 2022-04-11 14:20 | NUR.NOTE ---
Nursing Note: Patient transferred to the ICU, report received by Renny Reynoso. patient has all belongings with her in ICU room.
--- NOTE | 2022-04-11 14:38 | PGE_ITS ---
Date of Service Date of service: 04/11/22 Time of Service: 14:39 Assessment and Plan Assessment and plan (1) Acute on chronic respiratory failure with hypoxia and hypercapnia: Status: Acute Assessment and plan: Very poor air movement. I have asked RT to place the patient on BiPAP again. Transfer to the ICU. Continue scheduled + prn nebs, steroids, abx, tamiflu. Will give a dose of magnesium sulfate. The patient is DNR/DNI. (2) COPD exacerbation: Status: Acute Assessment and plan: As above (3) Influenza A: Status: Acute Assessment and plan: As above (4) Secondary bacterial pneumonia: Status: Acute Assessment and plan: As above Obtain MRSA nares. Previous MRSA swabs negative (5) DVT prophylaxis: Status: Acute Assessment and plan: SC enoxaparin (6) Discharge planning issues: Status: Acute Assessment and plan: DNR/DNI Transfer to the ICU Total Critical Care Time 35 minutes. Discussed with Stanley, patient's son. Subjective Subjective Interval history since last seen: Ms Stephens states her breathing is worse. She is willing to go back on BiPAP and to be transferred to the ICU. She would like me to inform her son Stanley (which I did). She would like to remain DNR/DNI. She feels short of breath, tired. She has R lower back pain as well as neck/shoulder pain. Exam Narrative Exam Narrative: General: Pleasant elderly female who looks sick, tired, 2-3 word dyspnea, tripoding when sitting up HEENT: EOMI, MMM Heart: RRR Lungs: Very diminished breath sounds B with a faint expiratory wheeze on L Abdomen: soft, nontender, nondistended Extremities: trace edema BLEs Objective Last Vital Signs Temp 37 C 04/11/22 07:20 Pulse 105 H 04/11/22 13:25 Resp 18 04/11/22 13:25 BP 107/63 04/11/22 07:20 Pulse Ox 94 04/11/22 13:25 Laboratory Results - last 24 hr 04/11/22 04/11/22 04/11/22 00:44 00:44 00:44 WBC RBC Hgb Hct MCV MCH MCHC RDW Plt Count MPV Immature Gran % Neutrophils % Lymphocytes % Monocytes % Eosinophils % Basophils % Nucleated RBC % Absolute Neutrophils Absolute Lymphocytes Absolute Monocytes Absolute Eosinophils Absolute Basophils VBG pH 7.25 L VBG pCO2 > 100 H* VBG pO2 47 VBG HCO3 Not Applicable VBG Total CO2 Not Applicable VBG O2 Saturation 79 VBG Base Excess Not Applicable VBG Lactate Sodium 139 Potassium 4.0 Chloride 95 L Carbon Dioxide > 45.0 H Anion Gap -1.50814 L BUN 10 Creatinine 0.6 Est GFR (CKD-EPI 2020) 92.97 Glucose 173 H Calcium 9.6 Magnesium Total Bilirubin 0.4 AST 20 ALT 8 L Alkaline Phosphatase 93 Troponin I < 50 NT-Pro-B Natriuret Pep 989 H Total Protein 8.2 Albumin 3.4 Procalcitonin TSH 0.23 L Free T4 1.36 Urine Color Urine Clarity Urine pH Ur Specific [place] Urine Protein Urine Ketones Urine Blood Urine Nitrite Urine Bilirubin Urine Urobilinogen Ur Leukocyte Esterase Urine RBC Urine WBC Ur Epithelial Cells Urine Crystals Urine Bacteria Urine Casts Urine Mucus Ur Culture Indicated? Urine Glucose COVID-19 Source SARS-CoV-2 (PCR) Influenza Type A (PCR) Influenza Type B (PCR) RSV (PCR) Add-On Test Request 04/11/22 04/11/22 04/11/22 00:44 00:44 00:44 WBC 18.57 H RBC 5.25 H Hgb 15.1 Hct 50.3 H MCV 96 H MCH 28.8 MCHC 30.0 L RDW 13.3 Plt Count 249 MPV 9.1 Immature Gran % 0.4 Neutrophils % 94.2 Lymphocytes % 2.7 Monocytes % 2.4 Eosinophils % 0.0 Basophils % 0.3 Nucleated RBC % 0.0 Absolute Neutrophils 17.49 H Absolute Lymphocytes 0.50 L Absolute Monocytes 0.45 Absolute Eosinophils 0.00 Absolute Basophils 0.06 VBG pH VBG pCO2 VBG pO2 VBG HCO3 VBG Total CO2 VBG O2 Saturation VBG Base Excess VBG Lactate 0.8 Sodium Potassium Chloride Carbon Dioxide Anion Gap BUN Creatinine Est GFR (CKD-EPI 2020) Glucose Calcium Magnesium Total Bilirubin AST ALT Alkaline Phosphatase Troponin I NT-Pro-B Natriuret Pep Total Protein Albumin Procalcitonin TSH Free T4 Urine Color Urine Clarity Urine pH Ur Specific [place] Urine Protein Urine Ketones Urine Blood Urine Nitrite Urine Bilirubin Urine Urobilinogen Ur Leukocyte Esterase Urine RBC Urine WBC Ur Epithelial Cells Urine Crystals Urine Bacteria Urine Casts Urine Mucus Ur Culture Indicated? Urine Glucose COVID-19 Source SARS-CoV-2 (PCR) Influenza Type A (PCR) Influenza Type B (PCR) RSV (PCR) Add-On Test Request DONE 04/11/22 04/11/22 04/11/22 00:44 01:00 01:50 WBC RBC Hgb Hct MCV MCH MCHC RDW Plt Count MPV Immature Gran % Neutrophils % Lymphocytes % Monocytes % Eosinophils % Basophils % Nucleated RBC % Absolute Neutrophils Absolute Lymphocytes Absolute Monocytes Absolute Eosinophils Absolute Basophils VBG pH VBG pCO2 VBG pO2 VBG HCO3 VBG Total CO2 VBG O2 Saturation VBG Base Excess VBG Lactate Sodium Potassium Chloride Carbon Dioxide Anion Gap BUN Creatinine Est GFR (CKD-EPI 2020) Glucose Calcium Magnesium 1.9 Total Bilirubin AST ALT Alkaline Phosphatase Troponin I NT-Pro-B Natriuret Pep Total Protein Albumin Procalcitonin TSH Free T4 Urine Color Yellow Urine Clarity Sl Cloudy Urine pH 6.0 Ur Specific [place] >= 1.030 H Urine Protein >=300 H Urine Ketones 40 H Urine Blood Small H Urine Nitrite Negative Urine Bilirubin Small H Urine Urobilinogen 0.2 Ur Leukocyte Esterase Negative Urine RBC 3-5 H Urine WBC 0-2 Ur Epithelial Cells Rare Urine Crystals Few Amorphous Urine Bacteria Few Urine Casts 5-10 Hyaline Urine Mucus Moderate Ur Culture Indicated? No Urine Glucose Negative COVID-19 Source Nasopharynx SARS-CoV-2 (PCR) Negative Influenza Type A (PCR) Positive A Influenza Type B (PCR) Negative RSV (PCR) Negative Add-On Test Request 04/11/22 04/11/22 04/11/22 01:59 05:42 05:42 WBC RBC Hgb Hct MCV MCH MCHC RDW Plt Count MPV Immature Gran % Neutrophils % Lymphocytes % Monocytes % Eosinophils % Basophils % Nucleated RBC % Absolute Neutrophils Absolute Lymphocytes Absolute Monocytes Absolute Eosinophils Absolute Basophils VBG pH 7.26 L 7.31 VBG pCO2 > 100 H* 86 H* VBG pO2 82 65 VBG HCO3 Not Applicable 44 H VBG Total CO2 Not Applicable 40 H VBG O2 Saturation 95 93 VBG Base Excess Not Applicable > 15 H VBG Lactate Sodium Potassium Chloride Carbon Dioxide Anion Gap BUN Creatinine Est GFR (CKD-EPI 2020) Glucose Calcium Magnesium Total Bilirubin AST ALT Alkaline Phosphatase Troponin I NT-Pro-B Natriuret Pep Total Protein Albumin Procalcitonin 0.6 TSH Free T4 Urine Color Urine Clarity Urine pH Ur Specific [place] Urine Protein Urine Ketones Urine Blood Urine Nitrite Urine Bilirubin Urine Urobilinogen Ur Leukocyte Esterase Urine RBC Urine WBC Ur Epithelial Cells Urine Crystals Urine Bacteria Urine Casts Urine Mucus Ur Culture Indicated? Urine Glucose COVID-19 Source SARS-CoV-2 (PCR) Influenza Type A (PCR) Influenza Type B (PCR) RSV (PCR) Add-On Test Request
[2022-04-11] MEDS: Sertraline 100 MG TAB PO (14:49)
[2022-04-11] MEDS: Budesonide/Formoterol 80/4.5 6.9 GM 60 PUFF INH IH ×2 (14:49→20:04)
[2022-04-11] MEDS: Gabapentin 100 MG CAP PO ×2 (14:49→20:03)
[2022-04-11] MEDS: Roflumilast 500 MCG TAB PO (14:49)
[2022-04-11] MEDS: clonazePAM 1 MG TAB PO (14:59)
[2022-04-11 15:14] LABS: Lab Add On Test DONE
[2022-04-11] MEDS: MAGNESIUM SULFATE 2 GM/50 ML BAG IVPB (16:05)
[2022-04-11] MEDS: Celecoxib 200 MG CAP PO (20:03)
[2022-04-11] MEDS: Oseltamivir 6 MG/ML 60 ML BTL 30 MG PO (20:05)
[2022-04-12] VITALS (43 sets, daily range): BP systolic 99–138; BP diastolic 35–114; PULSE 80–108; RESP 4–470; TEMP 34–37.5; O2SAT 84–100
[2022-04-12] MEDS: PIPERACILLIN/TAZO 3.375 GM in Normal Saline 50 ML IVPB ×5 (02:12→23:29)
[2022-04-12] MEDS: AZITHROMYCIN 250 MG in Normal Saline 250 ML IVPB (03:35)
[2022-04-12] MEDS: Albuterol 2.5 MG/3 ML INH SOLN VIAL UPD (04:32)
[2022-04-12] MEDS: Normal Saline Flush 10 ML SYR IVP ×2 (04:33→20:32)
[2022-04-12 04:54] LABS: Abs Immature Grans 0.05 10^3/uL (0.0-0.06); Absolute Basophil Count 0.01 10^3/uL (0.0-0.2); Absolute Lymphocyte Count 0.41 10^3/uL (1.2-3.4); Absolute Monocyte Count 0.56 10^3/uL (0.1-0.8); Basophils % 0.1; HCT 39.4 % (36.0-46.0); HGB 11.9 g/dL (11.2-15.7); Immature Grans % 0.4; Lymphocytes % 3.4; MCH 29.1 pg (27.0-33.0); MCHC 30.2 % (32.0-36.0); MCV 96 fL (80-95); MPV 9.5 fL (8.0-11.0); Monocytes % 4.6; Neutrophils % 91.5; Platelet Count 223 10^3/uL (130-400); RBC 4.09 10^6/uL (3.93-5.22); RDW 13.4 % (11.7-14.6); RDW-SD 47.8 fL; WBC 12.19 10^3/uL (4.4-10.8)
[2022-04-12 04:55] LABS: BUN 26 mg/dL (7-18); CREATININE 1.7 mg/dL (0.55-1.02); Calcium 8.9 mg/dL (8.5-10.1); Chloride 99 mmol/L (98-107); Estimated GFR 30.89 (mL/min/1.73m2); Glucose 148 mg/dL (74-106); Magnesium 2.9 mg/dL (1.8-2.4); Potassium 3.4 mmol/L (3.5-5.1); Sodium 144 mmol/L (136-145)
[2022-04-12 04:56] LABS: Anion Gap -0.00001 mmol/L (3-11); CO2 > 45.0 mmol/L (21.0-32.0)
[2022-04-12 05:08] LABS: Absolute Neutrophil Count 11.15 10^3/uL (1.2-6.7)
[2022-04-12 05:10] LABS: PHOSPHORUS 3.9 mg/dL (2.6-4.7)
[2022-04-12] MEDS: Cholecalciferol (Vitamin D3) 1,000 UNIT TAB 3000 UNITS PO (09:17)
[2022-04-12] MEDS: Omeprazole 20 MG CAPCR 40 MG PO (09:17)
[2022-04-12] MEDS: Roflumilast 500 MCG TAB PO (09:18)
[2022-04-12] MEDS: Salt Supplement (BUFFERED) TAB 1 TAB PO ×2 (09:18→20:32)
[2022-04-12] MEDS: Benzonatate 100 MG CAP PO ×3 (09:18→20:33)
[2022-04-12] MEDS: Sertraline 100 MG TAB PO (09:19)
[2022-04-12] MEDS: Gabapentin 100 MG CAP PO ×3 (09:19→20:32)
[2022-04-12] MEDS: methylPREDNISolone SUCC 40 MG VIAL IVP (09:19)
[2022-04-12] MEDS: Potassium Chloride 20 MEQ TABCR 40 MEQ PO (09:21)
[2022-04-12] MEDS: Enoxaparin 40 MG/0.4 ML SYR SC (09:23)
--- NOTE | 2022-04-12 09:25 | PT.INIE ---
PT Notes Visit Reasons: Flu, Pneumonia, COPD Inpatient Physical Therapy Evaluation Date: April 12, 2022 Referring Doctor: Dr. Marti Carmona PT Orders: PT CONSULT: Limited ability - Eval and Treat Precautions: Droplet precautions, fall, limited ability Patient Profile/Admitting Diagnosis: This is a 76-year-old female with a past medical history of being a palliative care patient who is DNR/DNI, longstanding COPD, fibromyalgia, GERD, multiple admissions for her COPD exacerbations, who presents to ED 04/11/22 for evaluation of increased respiratory effort.? She is on a baseline of 2 L of home oxygen, but over the last 24 hours has been increased to 4 L.? Family states that she has been complaining of some shoulder pain chronically over the last few weeks and has had a notable decline in her respiratory status over the last 2 days.? This evening things continue to worsen, EMS was called and she was brought to the ER for further evaluation.? She states that she feels very short of breath.? She is a bit confused.? No other complaints at this time.? No other historical factors. PMHX: PFSH All Active Problems? COPD exacerbation (Acute) Hypercarbia (Acute) Hospital acquired PNA (Acute) Advanced care planning/counseling discussion (Acute) Palliative care patient (Acute) Hypoxemia (Acute) Hospital-acquired bacterial pneumonia (Acute) Hyponatremia (Chronic) Epigastric pain (Acute) Discharge planning issues (Acute) DVT prophylaxis (Acute) COPD with acute exacerbation (Acute) Acute bronchitis (Acute) Odynophagia (Acute) Dysphagia (Acute) GERD (gastroesophageal reflux disease) (Chronic) Chronic obstructive pulmonary disease (Chronic) Chronic pain syndrome (Chronic 12/15/16) CONTROLLED SUBSTANCE AGREEMENT 10/03/18 Lumbosacral spondylosis without myelopathy (Acute) Fibromyalgia (Acute) Fall (Acute) Low back pain (Acute) Fever (Acute) Discharge planning issues (Acute) Acute exacerbation of chronic obstructive pulmonary disease (COPD) (Acute) T12 compression fracture (Acute) Ongoing leg pain (Acute) continue nSaid prn tramadol see surgeon next week consider topical analgesic on surrounding skinHemoptysis (Acute) History of cataract removal with insertion of prosthetic lens (Acute 06/05/15) History of chest tube placement (Acute) Status post appendectomy (Acute) Status post laminectomy (Acute) Pain from implanted hardware (Chronic 10/30/18) S/P Hardware removalBacterial pneumonia (Acute 11/23/13) Chronic anxiety (Chronic 06/22/13) Chronic emphysema syndrome (Chronic) Chronic pain in right shoulder (Chronic 11/20/13) Moderate protein malnutrition (Chronic 11/20/13) Contusion of right knee, initial encounter (Acute) Neck pain (Acute) Irritable bowel syndrome with diarrhea (Chronic) Cervical neck pain with evidence of disc disease (Chronic 06/22/13) History of tobacco abuse (Chronic) Anxiety (Chronic) LLL pneumonia (Acute ~03/30/18) Medical History? DNI (do not intubate) DNR (do not resuscitate) POLST (Physician Orders for Life-Sustaining Treatment) Surgical History? Appendectomy CHEST TUBE Extraction of cataract 06/05/15; LEFT EYE; DR. ERAZO/O section Hx of hysterectomy LAMINECTOMY CERVICAL SPINE Social History/Home Situation: Patient lives in [id number] apartment with her daughter and grandchildren.? 5 steps with railing upon entry.? No longer driving.? Patient states she is independent in her own home. Current Functional Limitations: Community ambulation Equipment Owned/DME: four-wheel walker Subjective:?Patient states that her shoulders and low back are sore.? She says this is a chronic issue.? Complains of shortness of breath. Objective:?? General Observation: Patient laying in bed with head of bed at 50 degrees.? Very pleasant.? On telemetry, IV port in right forearm and supplemental oxygen 4 L via nasal cannula, catheter, ? Mental Status: Alert and oriented x3 Pain: 5/10 bilateral shoulders, sick/10 low back.? Denies any radiculopathy in either lower extremity. States this has been a multiyear issue with her shoulders and back. Vital Signs: 89% O2 saturation on 4 L O2.? Does desaturate to 77% following transfer from supine to sit and sit to transfer to bedside chair.? This restored to 88% following 3 minutes of pursed lip breathing with 4 L supplemental oxygen.? Blood pressure 121/70. Nursing was aware and present during re-saturation upon completion of evaluation. ROM: Right Upper Extremity: Glenohumeral joint flexion 125 degrees active assisted 135 with pain at endrange, abduction 110 degrees actively, elbow flexion and extension within normal limits.? Able to make fist approximating fingertips to palmar crease. Left Upper Extremity: Glenohumeral joint flexion 120 degrees active 125 active assisted with pain at endrange, abduction 100 degrees actively, elbow flexion and extension within normal limits.? Approximate fingertips to palmar crease. Right Lower Extremity: Hip flexion and abduction actively within functional limits.? Knee flexion 105 degrees with pain, extension lacks 5 degrees.? Ankle range of motion within functional limits Left Lower Extremity: Hip flexion and abduction within functional limits actively.? Knee flexion 120 minimal pain, extension 0.? Ankle range of motion within functional limits. Strength: Right Upper Extremity: Glenohumeral joint flexion and abduction 3/5 with pain, tricep 4/5, bicep 4/5, good chief technical officer Left Upper Extremity: Glenohumeral joint flexion 3+/5, abduction 3/5 with pain, tricep 4/5, bicep 4/5, good chief technical officer Right Lower Extremity: Patient perform straight leg raises 10 degree lag.? Hip flexion 4-/5, quad 4 -/5, hamstring 3+/5, ankle inversion, eversion, plantarflexion and dorsiflexion 4-/5 Left Lower Extremity: Patient form straight leg raise with 0 degree lag.? Hip flexion 4-/5, quad 4 -/5, hamstrings 4 -/5, ankle inversion, eversion, plantarflexion and dorsiflexion 4-/5 Sensation:?Reported mildly decreased sensation light touch bilateral hands. Bed Mobility/Transfers: Bed?sit: HOB 50 degrees, SBA Bed?stand: Min assistX1 to FWW Stand?sit: to bedside chair, SBA with verbal cues for hand positioning on chair Gait:? Not completed today Balance:? Static Sitting:Good Dynamic Sitting: Good Static Standing: Fair Dynamic Standing: Fair Special Tests: Mobility Limitations Standardized Measure [facility] 6 clicks Basic Mobility Inpatient Short Form: Raw Score: 18? Standardized Score: ? CMS Score: 47% Informed Consent/Education:? Patient instructed in purpose of PT consult and plan of care. Assessment:??Patient is a 76 year old female referred to physical therapy services with the diagnosis of acute COPD exacerbation.? Patient presents with clinical signs and symptoms consistent with above diagnosis, as demonstrated by the following impairment level findings: Mobility and strength deficits, lower extremity weakness and fair balance with dynamic activities.? Impairments are contributing to the following functional limitations: AMPAC score 47%. 1. Decline in bed mobility skills 2. Decline in transfer skills 3. Inability to safely ambulate 4. Increased completion time for mobility ADL performance 5. Increased risk for falls 6. Difficulty with managing steps alone safely Patient is assessed as a moderate complexity based on the following 87100 History: See multiple comorbidities listed above Examination: See assessment and objective findings Presentation: Evolving Decision Making: Moderate, AMPAC disability 47% ? Goals: Goals X1 week 1. Supine-Sit: Independent 2. Sit-Supine: Independent 3. Sit-Stand: Independent 4. Stand-Sit : Independent 5. Bed-Chair: Independent 6. Chair-Bed: Independent 7. Gait: Patient ambulates 100 feet with use of front wheel walker with SBA 8. Stairs: Independent with performing 5 stairs with railing with standby assist ? Plan of Care/Treatment Plan: 1-2x/day, 7 days/week x 1 week. Plan of care has been reviewed with the 911 DISPATCHER providing the service under Physical Therapy direction. Initiate Physical Therapy intervention for strengthening, bed mobility, transfers, gait, stairs, balance training, use of assistive device. DISCHARGE RECOMMENDATIONS: [] Home with no services [] X Home with services [HHPT] and ?OT secondary to poor endurance [] Home with outpatient PT [] [] SNF for continued rehabilitation [] [] [facility] [] [] SNF versus LTC based on ability to participate and progress [] TREATMENT CODE/TIME: 98134 IE direct one on one 10:05 - 10:25 Thank you for this referral. Ross Liriano PT, DPT Disclaimer: This note was created using [employer] voice recognition software. It was reviewed for major content. However, there may be multiple small discrepancies and errors due to the voice recognition aspects of the software.
--- NOTE | 2022-04-12 09:36 | W.PM.PROGNOT ---
Date of Service Date of service: 04/12/22 Time of Service: 09:36 Assessment and Plan Assessment and plan (1) Acute on chronic respiratory failure with hypoxia and hypercapnia: Status: Acute Assessment and plan: Seems to be improving after a night in the ICU on BiPAP. Monitor on humidified heated high flow O2 this morning. Continue scheduled + prn nebs, steroids, abx, tamiflu. The patient is DNR/DNI. Depending on how she does today on humidified heated canula, might be able to transfer out of the ICU today. (2) COPD exacerbation: Status: Acute Assessment and plan: As above (3) Influenza A: Status: Acute Assessment and plan: As above (4) Secondary bacterial pneumonia: Status: Acute Assessment and plan: As above MRSA nares pending (5) DVT prophylaxis: Status: Acute Assessment and plan: SC enoxaparin (6) Discharge planning issues: Status: Acute Assessment and plan: DNR/DNI Possible transfer out of ICU later today. Total Critical Care Time 30 minutes. Subjective Subjective Interval history since last seen: Ms Stephens spend the night on BiPAP and is feeling better. She was being transitioned to humidified heated NC this morning. She states she does not have any chest discomfort or chest tightness, does not feel short of breath, denies dizziness, nausea. Reports a sore throat and requests a hot coffee (2 cups, caffeinated). Exam Narrative Exam Narrative: General: Pleasant elderly female who looks better, tired, 2-3 word dyspnea HEENT: EOMI, MMM Heart: RRR Lungs: Very diminished breath sounds B with a faint expiratory wheeze on L Abdomen: soft, nontender, nondistended Extremities: no edema BLEs Objective Last Vital Signs Temp 36 C L 04/12/22 04:33 Pulse 100 H 04/12/22 06:55 Resp 18 04/12/22 06:55 BP 99/48 L 04/12/22 06:01 Pulse Ox 84 L 04/12/22 06:55 Laboratory Results - last 24 hr 04/11/22 04/11/22 04/11/22 00:44 00:44 05:42 WBC RBC Hgb Hct MCV MCH MCHC RDW Plt Count MPV Immature Gran % Neutrophils % Lymphocytes % Monocytes % Eosinophils % Basophils % Nucleated RBC % Absolute Neutrophils Absolute Lymphocytes Absolute Monocytes Absolute Eosinophils Absolute Basophils Sodium Potassium Chloride Carbon Dioxide Anion Gap BUN Creatinine Est GFR (CKD-EPI 2020) Glucose Calcium Phosphorus Magnesium 1.9 Add-On Test Request DONE DONE 04/12/22 04/12/22 04:35 04:35 WBC 12.19 H RBC 4.09 Hgb 11.9 D Hct 39.4 MCV 96 H MCH 29.1 MCHC 30.2 L RDW 13.4 Plt Count 223 MPV 9.5 Immature Gran % 0.4 Neutrophils % 91.5 Lymphocytes % 3.4 Monocytes % 4.6 Eosinophils % 0.0 Basophils % 0.1 Nucleated RBC % 0.0 Absolute Neutrophils 11.15 H Absolute Lymphocytes 0.41 L Absolute Monocytes 0.56 Absolute Eosinophils 0.00 Absolute Basophils 0.01 Sodium 144 Potassium 3.4 L Chloride 99 Carbon Dioxide > 45.0 H Anion Gap -0.16747 L BUN 26 H Creatinine 1.7 H D Est GFR (CKD-EPI 2020) 30.89 Glucose 148 H Calcium 8.9 Phosphorus 3.9 Magnesium 2.9 H Add-On Test Request Multi-Disciplinary Checklist Lines/Tubes CENTRAL LINE: no ARTERIAL LINE: no ARCE: yes, Arce Day#: 2 ENDOTRACHEAL TUBE: no ICU Maintenance GLUCOSE 140-180mg/dL: yes NUTRITION AT GOAL: yes PRESSURE ULCER: no RESTRAINTS: no ANTIBIOTICS(if yes, consider Stewardship): Yes Social Issues FAMILY UPDATED: no, Reason/Intervention: will update later today PT/OT: yes GOALS/DISPOSITION/SOLID WASTE TECHNICIAN: yes CODE STATUS: DNR/DNI Prophylaxis DVT PROPHYLAXIS: yes GI PROPHYLAXIS: yes, Indication: on chronic PPI
[2022-04-12] MEDS: Budesonide/Formoterol 80/4.5 6.9 GM 60 PUFF INH IH ×2 (09:43→20:35)
[2022-04-12] MEDS: clonazePAM 1 MG TAB PO ×2 (11:20→20:33)
[2022-04-12] MEDS: Albuterol/Ipratropium 3 ML UPD VIAL UPD ×3 (12:08→23:29)
[2022-04-12] MEDS: guaiFENesin 600 MG TABCR PO ×2 (12:22→20:32)
[2022-04-12 16:10] LABS: C Diff PCR Positive (Negative)
[2022-04-12] MEDS: metroNIDAZOLE 500 MG/100 ML BAG 100 MG IVPB (18:02)
[2022-04-12 18:45] LABS: Legionella Ag Detection Urine Negative (Negative)
[2022-04-12] MEDS: Cholestyramine/Aspartame PKT 1 EACH PO (20:32)
[2022-04-13] VITALS (39 sets, daily range): BP systolic 96–134; BP diastolic 52–85; PULSE 78–105; RESP 8–19; TEMP 31–37; O2SAT 87–99
--- NOTE | 2022-04-13 | DI.RAD_ITS ---
Exam(s) XR ABDOMEN FLAT PLATE EXAM: XR ABDOMEN FLAT PLATE CLINICAL HISTORY: abdominal pain, C. diff. TECHNIQUE: 2D digital imaging was performed. COMPARISON: CR,RF RF BARIUM SWALLOW from 01/25/2022 FINDINGS: Portable AP supine view the abdomen compared to 01/25/2022. Stomach is filled with air mildly distended. There are air-filled bowel loops both sides the abdomen . Difficult to determine if there is air in the colon. No obvious calcifications seen over the kidn eys nor along course of the ureters. Two small phleboliths are noted in left side of the pelvis. Va scular calcification in the iliac arteries is noted in the pelvis. No significant osseous lesions. Advanced COPD changes in both lung bases noted. IMPRESSION: DATA REPOSITORY: RADIATION DOSE DELIVERED:
[2022-04-13] MEDS: metroNIDAZOLE 500 MG/100 ML BAG 100 MG IVPB ×3 (01:33→19:02)
[2022-04-13] MEDS: AZITHROMYCIN 250 MG in Normal Saline 250 ML IVPB (04:15)
[2022-04-13 05:14] LABS: Abs Immature Grans 0.06 10^3/uL (0.0-0.06); Absolute Basophil Count 0.01 10^3/uL (0.0-0.2); Absolute Lymphocyte Count 0.83 10^3/uL (1.2-3.4); Basophils % 0.1; HCT 37.7 % (36.0-46.0); HGB 11.5 g/dL (11.2-15.7); Immature Grans % 0.4; Lymphocytes % 5.8; MCH 29.3 pg (27.0-33.0); MCHC 30.5 % (32.0-36.0); MCV 96 fL (80-95); MPV 9.5 fL (8.0-11.0); Monocytes % 5.7; Platelet Count 250 10^3/uL (130-400); RBC 3.92 10^6/uL (3.93-5.22); RDW 13.3 % (11.7-14.6); RDW-SD 47.1 fL; WBC 14.32 10^3/uL (4.4-10.8)
[2022-04-13 05:17] LABS: Absolute Monocyte Count 0.82 10^3/uL (0.1-0.8)
[2022-04-13 05:22] LABS: Anion Gap 0.4 mmol/L (3-11); BUN 33 mg/dL (7-18); CO2 38.6 mmol/L (21.0-32.0); CREATININE 1.9 mg/dL (0.55-1.02); Calcium 9.1 mg/dL (8.5-10.1); Chloride 100 mmol/L (98-107); Estimated GFR 27.03 (mL/min/1.73m2); Glucose 112 mg/dL (74-106); Magnesium 2.5 mg/dL (1.8-2.4); Potassium 3.8 mmol/L (3.5-5.1); Sodium 139 mmol/L (136-145)
[2022-04-13] MEDS: PIPERACILLIN/TAZO 3.375 GM in Normal Saline 50 ML IVPB ×2 (05:30→11:48)
[2022-04-13] MEDS: Albuterol/Ipratropium 3 ML UPD VIAL UPD ×3 (05:45→18:10)
[2022-04-13 07:55] LABS: Lab Add On Test DONE
[2022-04-13 08:21] LABS: C-Reactive Protein 6.99 mg/dL (0.0-0.3)
[2022-04-13] MEDS: Oseltamivir 30 MG CAP PO (08:30)
[2022-04-13 08:35] LABS: Procalcitonin 0.8 ng/mL
[2022-04-13] MEDS: Budesonide/Formoterol 80/4.5 6.9 GM 60 PUFF INH IH ×2 (08:48→22:19)
--- NOTE | 2022-04-13 09:03 | PT.INTREAT ---
Date of service: 04/13/22 Time of Service: 07:47 PT Notes Visit Reasons: Flu, Pneumonia, COPD Inpatient Physical Therapy Treatment Note [facility] Date: 04/13/2022 PRECAUTIONS: Activity as tolerated, fall, [place] O2 SUBJECTIVE: Laney is pleasant and agreeable to participating in PT. She does not offer much for conversation. In p.m., per nursing, patient just got back into bed for CXR. OBJECTIVE: PAIN: No c/o pain BED MOBILITY/TRANSFERS: Supine-sit: I Sit-stand: CGA Stand-sit: CGA GAIT Assistive Device: METAL FABRICATING SUPERVISOR x2 Weight bearing: Full Assist: CGA x2 Distance: 10' Deviation: Unsteady, anteroflexed posture, short step height and length THEREX: Patient was instructed in a LE strengthening program, completed in a seated position, to include: ankle pumps, heel raises, LAQ, hip flexion and hip abduction. In p.m., patient was instructed in a global strengthening program, completed in a supine position, to include: ankle pumps, quad sets, glute sets, heel slides, hip abduction, bridging, shoulder flexion, bicep curls, and shoulder horizontal abduction. ASSESSMENT: Patient tolerated session without complaint. She demonstrates unsteady gait and limited activity tolerance. Patient would benefit from use of FWW with ambulation. PLAN: Continue with global strengthening and general conditioning for improved mobility and activity tolerance. TREATMENT CODE/TIME: Session 1: 28 minutes; [id number], [id number] (07:47) Session 2: 15 minutes; [id number] (14:23)
--- NOTE | 2022-04-13 09:17 | PDOC.CMIN ---
- If Service Date Differs Date of service: 04/13/22 Time of Service: 09:17 Care Management Initial Assess REASON FOR HOSPITALIZATION:: COPD Exacerbation PAST MEDICAL HISTORY/PAST SURGICAL HISTORY:: All Active Problems . COPD exacerbation (Acute). Hypercarbia (Acute). Hospital acquired PNA (Acute). Advanced care planning/counseling discussion (Acute). Palliative care patient (Acute). Hypoxemia (Acute). Hospital-acquired bacterial pneumonia (Acute). Hyponatremia (Chronic). Epigastric pain (Acute). Discharge planning issues (Acute). DVT prophylaxis (Acute). COPD with acute exacerbation (Acute). Acute bronchitis (Acute). Odynophagia (Acute). Dysphagia (Acute). GERD (gastroesophageal reflux disease) (Chronic). Chronic obstructive pulmonary disease (Chronic). Chronic pain syndrome (Chronic 12/15/16). CONTROLLED SUBSTANCE AGREEMENT 10/03/18. Lumbosacral spondylosis without myelopathy (Acute). Fibromyalgia (Acute). Fall (Acute). Low back pain (Acute). Fever (Acute). Discharge planning issues (Acute). Acute exacerbation of chronic obstructive pulmonary disease (COPD) (Acute). T12 compression fracture (Acute). Ongoing leg pain (Acute). continue nSaid. prn tramadol. see surgeon next week. consider topical analgesic on surrounding skin. Hemoptysis (Acute). History of cataract removal with insertion of prosthetic lens (Acute 06/05/15). History of chest tube placement (Acute). Status post appendectomy (Acute). Status post laminectomy (Acute). Pain from implanted hardware (Chronic 10/30/18). S/P Hardware removal. Bacterial pneumonia (Acute 11/23/13). Chronic anxiety (Chronic 06/22/13). Chronic emphysema syndrome (Chronic). Chronic pain in right shoulder (Chronic 11/20/13). Moderate protein malnutrition (Chronic 11/20/13). Contusion of right knee, initial encounter (Acute). Neck pain (Acute). Irritable bowel syndrome with diarrhea (Chronic). Cervical neck pain with evidence of disc disease (Chronic 06/22/13). History of tobacco abuse (Chronic). Anxiety (Chronic). LLL pneumonia (Acute ~03/30/18). Medical History . DNI (do not intubate). DNR (do not resuscitate). POLST (Physician Orders for Life-Sustaining Treatment). Surgical History . Appendectomy. CHEST TUBE. Extraction of cataract. 06/05/15; LEFT EYE; DR. ARAUZ. H/O section. Hx of hysterectomy. LAMINECTOMY. CERVICAL SPINE PREVIOUS FUNCTIONAL STATUS/SOCIAL/FAMILY SUPPORTS:: Laney lives in [place] in an inlaw apartment in her son Stanley's home along with his Bree and 4 children ages 10, 8, 7 and 3. Her family, including the children, are very helpful and supportive. Laney uses 2L of nasal O2 at baseline which she receives from [facility] and uses a walker or furniture surfing to ambulate in her home. She no longer drives and rarely goes out. Laney has been receiving home health nursing, PT and OT since her last admission. CURRENT FUNCTIONAL STATUS:: Laney was sitting up in a chair when met with her. She engaged readily with CM, well known to her from previous hospital stays. She appeared quite ill and had high flow nasal oxygen running at the time. Laney stated that she has not been able to do much of anything at home. She has difficulty even sitting up long enough to play a game of cards with her grandchildren. She did proudly inform that she was able to come downstairs for a little while and watch the grandchildren open gifts on morning, even though her son needed to carry her. Laney talked a bit about Palliative care and had some questions which was able to answer. Laney explained her end of life wishes including the fact that she wants to be cremated and where she wants her final resting place to be. All of her family, except her son, lives out of state. She has determined that she will not be able to return to see them. She is comfortable with that decision. Another Palliative visit is scheduled for this hospital stay. ADVANCE DIRECTIVES:: COLST form on file INSURANCE COVERAGE / FINANCIAL ISSUES:: Medicare. Medicaid CURRENT HOME/COMMUNITY SERVICES/EQUIPMENT:: [facility] RN, PT and OT PRIMARY CARE PHYSICIAN:: Ralph Rahman POTENTIAL DISCHARGE NEEDS:: follow up with community providers and plan of care PATIENT/FAMILY EDUCATION NEEDS:: review of discharge instructions, limitations, activity, follow up plan, Ask Me Three discussion. TRANSPORTATION:: via private vehivcle with family PLAN:: Anticipate Laney will be discharged home with a resumption of home health services when medically cleared. She will follow up with Pulmonology, her PCP and plan of care. CM will continue to support Laney and assess for discharge needs.
[2022-04-13] MEDS: Cholestyramine/Aspartame PKT 1 EACH PO ×2 (09:59→19:02)
[2022-04-13] MEDS: Cholecalciferol (Vitamin D3) 1,000 UNIT TAB 3000 UNITS PO (09:59)
[2022-04-13] MEDS: methylPREDNISolone SUCC 40 MG VIAL IVP (10:01)
[2022-04-13] MEDS: guaiFENesin 600 MG TABCR PO ×2 (10:01→22:20)
[2022-04-13] MEDS: Benzonatate 100 MG CAP PO ×3 (10:01→22:21)
[2022-04-13] MEDS: clonazePAM 1 MG TAB PO ×2 (10:01→22:21)
[2022-04-13] MEDS: Omeprazole 20 MG CAPCR 40 MG PO (10:01)
[2022-04-13] MEDS: Roflumilast 500 MCG TAB PO (10:01)
[2022-04-13] MEDS: Enoxaparin 30 MG/0.3 ML SYR SC (10:02)
[2022-04-13] MEDS: Salt Supplement (BUFFERED) TAB 1 TAB PO ×2 (10:03→22:21)
[2022-04-13] MEDS: Gabapentin 100 MG CAP PO ×3 (10:03→22:20)
[2022-04-13] MEDS: Sertraline 100 MG TAB PO (10:03)
[2022-04-13 10:44] LABS: Campylobacter PCR Negative (Negative); Salmonella PCR Negative (Negative); Shiga Toxin PCR Negative (Negative); Shigella/Enteroinvasive Ecoli Negative (Negative)
[2022-04-13] MEDS: Oseltamivir 6 MG/ML 60 ML BTL 30 MG PO (11:51)
--- NOTE | 2022-04-13 12:02 | W.PM.PROGNOT ---
Date of Service Date of service: 04/13/22 Time of Service: 10:30 Assessment and Plan Assessment and plan (1) Acute on chronic respiratory failure with hypoxia and hypercapnia: Status: Acute Assessment and plan: Stable. Continue humidified heated high flow NC during the day and BiPAP at night. Will keep in ICU given current O2 requirements. Continue scheduled + prn nebs, steroids, abx, tamiflu. The patient is DNR/DNI. Await palliative care consult. (2) C. difficile colitis: Status: Acute Assessment and plan: Continue IV flagyl + PO vanco, probiotics, questran. Continue zosyn (d/c as soon as possible). D/c azithromycin. (3) COPD exacerbation: Status: Acute Assessment and plan: As above (4) Influenza A: Status: Acute Assessment and plan: As above (5) Secondary bacterial pneumonia: Status: Acute Assessment and plan: As above MRSA nares negative Sputum C&S with normal ailyn so far. (6) DVT prophylaxis: Status: Acute Assessment and plan: SC enoxaparin (7) Discharge planning issues: Status: Acute Assessment and plan: DNR/DNI Keep in ICU for now. Total Critical Care Time 30 minutes. Subjective Subjective Interval history since last seen: Laney states that she is neither better nor worse today as far as breathing. She reports significant shoulder pain. Denies dizziness, chest pain, nausea. Reports lower abdominal pain. Slept on BiPAP. On humidified heated high flow Cannula 40L 55% FIO2 saturating 88-90%. Still having diarrhea - thickening up. C.Diff positive. Exam Narrative Exam Narrative: General: Pleasant elderly female who looks better, sitting up in a chair, speaking in full sentences, A&Ox3, NAD, on humidified heated high flow NC HEENT: EOMI, MMM Heart: RRR Lungs: Very diminished but improved aeration B with a faint expiratory wheeze on L Abdomen: soft, tender in lower abdomen bilaterally, nondistended Extremities: no edema BLEs Objective Last Vital Signs Temp 36.4 C L 04/13/22 08:00 Pulse 90 04/13/22 08:12 Resp 14 04/13/22 08:12 BP 128/69 04/13/22 08:12 Pulse Ox 92 04/13/22 08:02 Laboratory Results - last 24 hr 04/11/22 04/12/22 04/12/22 12:40 14:30 14:30 WBC RBC Hgb Hct MCV MCH MCHC RDW Plt Count MPV Immature Gran % Neutrophils % Lymphocytes % Monocytes % Eosinophils % Basophils % Nucleated RBC % Absolute Neutrophils Absolute Lymphocytes Absolute Monocytes Absolute Eosinophils Absolute Basophils Sodium Potassium Chloride Carbon Dioxide Anion Gap BUN Creatinine Est GFR (CKD-EPI 2020) Glucose Calcium Magnesium C-Reactive Protein Procalcitonin Stool Campylobacter PCR Negative Stl C.difficile Tox PCR Positive A Stool Salmonella PCR Negative Stool Shigella PCR Negative Urine Legionella Ag Negative Shiga Toxin (PCR) Negative Add-On Test Request 04/13/22 04/13/22 04/13/22 04:51 04:51 04:51 WBC 14.32 H RBC 3.92 L Hgb 11.5 Hct 37.7 MCV 96 H MCH 29.3 MCHC 30.5 L RDW 13.3 Plt Count 250 MPV 9.5 Immature Gran % 0.4 Neutrophils % 88.0 Lymphocytes % 5.8 Monocytes % 5.7 Eosinophils % 0.0 Basophils % 0.1 Nucleated RBC % 0.0 Absolute Neutrophils 12.60 H Absolute Lymphocytes 0.83 L Absolute Monocytes 0.82 H Absolute Eosinophils 0.00 Absolute Basophils 0.01 Sodium 139 Potassium 3.8 Chloride 100 Carbon Dioxide 38.6 H Anion Gap 0.4 L BUN 33 H Creatinine 1.9 H Est GFR (CKD-EPI 2020) 27.03 Glucose 112 H Calcium 9.1 Magnesium 2.5 H C-Reactive Protein Procalcitonin Stool Campylobacter PCR Stl C.difficile Tox PCR Stool Salmonella PCR Stool Shigella PCR Urine Legionella Ag Shiga Toxin (PCR) Add-On Test Request DONE 04/13/22 04/13/22 04:51 04:51 WBC RBC Hgb Hct MCV MCH MCHC RDW Plt Count MPV Immature Gran % Neutrophils % Lymphocytes % Monocytes % Eosinophils % Basophils % Nucleated RBC % Absolute Neutrophils Absolute Lymphocytes Absolute Monocytes Absolute Eosinophils Absolute Basophils Sodium Potassium Chloride Carbon Dioxide Anion Gap BUN Creatinine Est GFR (CKD-EPI 2020) Glucose Calcium Magnesium C-Reactive Protein 6.99 H Procalcitonin 0.8 Stool Campylobacter PCR Stl C.difficile Tox PCR Stool Salmonella PCR Stool Shigella PCR Urine Legionella Ag Shiga Toxin (PCR) Add-On Test Request Multi-Disciplinary Checklist Lines/Tubes CENTRAL LINE: no ARTERIAL LINE: no ARCE: yes, Arce Day#: 2 ENDOTRACHEAL TUBE: no ICU Maintenance GLUCOSE 140-180mg/dL: no, Reason/Intervention: not diabetic NUTRITION AT GOAL: yes PRESSURE ULCER: no RESTRAINTS: no ANTIBIOTICS(if yes, consider Stewardship): Yes Social Issues FAMILY UPDATED: no, Reason/Intervention: Patient is able to update family PT/OT: yes GOALS/DISPOSITION/WASTE DISPOSAL LEAKAGE TESTER: yes CODE STATUS: DNR/DNI Prophylaxis DVT PROPHYLAXIS: yes GI PROPHYLAXIS: yes, Indication: on steroids
[2022-04-13] MEDS: ACETAMINOPHEN 1,000 MG/100 ML BTL 400 MG IVPB (12:35)
[2022-04-13] MEDS: Normal Saline 500 ML 10 ML IV (12:38)
--- NOTE | 2022-04-13 16:22 | PHACLINREV_ITS ---
Pharmacy Admission Review - Admission Clinical Review (Last Reviewed 04/11/22 @ 02:10 by Orlando Shukla MD) C. difficile colitis (Acute) Discharge planning issues (Acute) DVT prophylaxis (Acute) Acute on chronic respiratory failure with hypoxia and hypercapnia (Acute) Secondary bacterial pneumonia (Acute) Influenza A (Acute) COPD exacerbation (Acute) Hypercarbia (Acute) Hospital acquired PNA (Acute) No Known Allergies Allergy (Verified 02/13/22 07:59) Resuscitation Status DNR/DNI Height 5 ft 4 in Weight 53.6 kg Flu, Pneumonia, COPD - Comments Comments/Follow Ups: Pt has C.Diff, on IV Flagyl and oral Vancomycin, only 1-2 BM's per day at this time. Micro: blood cultures no growth x48h, MRSA nasal negative, sputum normal ailyn. Was on Azithromycin IV x 3 doses, which was dc'd 04/13/22, continues on Zosyn (day #3) renally dose adjusted for Pneumonia, Chest Xray did show infiltrates on admission, watch for repeat Chest xray - Renal Dosing Renal Dosing: BUN 33 mg/dL (7-18) H 04/13/22 04:51 Creatinine 1.9 mg/dL (0.55-1.02) H 04/13/22 04:51 CrCl~21 ml/min: Worsening from admission of SCr 0.6 Medications needing adjustments: Intervened (Renally adjusted Lovenox and Zosyn- ok'd w/, Tamiflu & Gabapentin doses okay) - Anticoagulation Anticoagulation: Hgb 11.5 g/dL (11.2-15.7) 04/13/22 04:51 Hct 37.7 % (36.0-46.0) 04/13/22 04:51 Plt Count 250 10^3/uL (130-400) 04/13/22 04:51 Creatinine 1.9 mg/dL (0.55-1.02) H 04/13/22 04:51 DVT Prophylaxis: Intervened (reduced from 40mg daily to 30mg daily) Medications: Enoxaparin - Opiate Usage Evaluate Pain Scale/Pains Meds: Reviewed (Pain 4/10, shoulder pain, added Methocarbamol, Celebrex on HOLD) - Relevant Labs Sodium 139 mmol/L (136-145) 04/13/22 04:51 Potassium 3.8 mmol/L (3.5-5.1) 04/13/22 04:51 Chloride 100 mmol/L (98-107) 04/13/22 04:51 Phosphorus 3.9 mg/dL (2.6-4.7) 04/12/22 04:35 Magnesium 2.5 mg/dL (1.8-2.4) H 04/13/22 04:51 C-Reactive Protein 6.99 mg/dL (0.0-0.3) H 04/13/22 04:51 Procal 0.8 (previously 0.6) WBC up 14.32 (On IV Solu-medrol) - DM Control DM Control: Glucose 112 mg/dL (74-106) H 04/13/22 04:51 DM Control: N/A - Cardiac Review Cardiac Review: Troponin I < 50 ng/L (<or=60) 04/11/22 00:44 NT-Pro-B Natriuret Pep 989 pg/mL (<300) H 04/11/22 00:44 weight is up 1.6kg overnight, I/O positive, no IVF's running BP, HR, EF%: Reviewed (Vitals ok, on high flow oxygen) - Qtc Review QTc: Reviewed (QTC 498, Sinus Tachy) - IV to PO Switch IV Medications: Reviewed (IV APAP, Solumedrol, Flagyl, Zosyn) - Home Meds Home Med List reviewed: Reviewed (Patient's own Butrans patch, weekly-due on Sat (not brought in), Patient's own Doxylamine (not brought in)) Relevent Home Meds Not ordered & why?: Trelegy inhalation, patient currently has Symbicort and Duonebs ordered - Current meds Current Medication Order Review: Reviewed (Clonazepam increased to TID scheduled. Adding Guafenesin & Tessalon, Added Methocarbamol.Celebrex on HOLD, Questran & Probiotics for diarrhea/C.Diff) - Comments Comments/Follow Ups: follow renal dose med adjustments, Anbx deescalation, oxygen requirements, C.diff management, Palliative care consult Antibiotic Activity - Pharmacy Antibiotic Review Pharmacy Antibiotic Activity: Renal function adjustment (Zosyn decreased to 2.25gram Q6h for CrCl~21ml/min) - Antibiotic Information Antibiotic Review Info: Zosyn day#3 for Pneumonia, IV Flagyl for C.Diff and oral Vanco
[2022-04-13] MEDS: PIPERACILLIN/TAZO 2.25 GM in Normal Saline 50 ML IVPB (17:45)
--- NOTE | 2022-04-13 20:10 | W.PALLCONSUL ---
[facility] All Active Problems (Updated 04/14/22 @ 15:22 by Marti Carmona MD) Chronic pain (Chronic) TERESA (acute kidney injury) (Acute) C. difficile colitis (Acute) Discharge planning issues (Acute) DVT prophylaxis (Acute) Acute on chronic respiratory failure with hypoxia and hypercapnia (Acute) Secondary bacterial pneumonia (Acute) Influenza A (Acute) COPD exacerbation (Acute) Hypercarbia (Acute) Hospital acquired PNA (Acute) Advanced care planning/counseling discussion (Acute) Palliative care patient (Acute) Hypoxemia (Acute) Hospital-acquired bacterial pneumonia (Acute) Hyponatremia (Chronic) Epigastric pain (Acute) Discharge planning issues (Acute) DVT prophylaxis (Acute) COPD with acute exacerbation (Acute) Acute bronchitis (Acute) Odynophagia (Acute) Dysphagia (Acute) GERD (gastroesophageal reflux disease) (Chronic) Chronic obstructive pulmonary disease (Chronic) Chronic pain syndrome (Chronic 12/15/16) CONTROLLED SUBSTANCE AGREEMENT 10/03/18 Lumbosacral spondylosis without myelopathy (Acute) Fibromyalgia (Acute) Fall (Acute) Low back pain (Acute) Fever (Acute) Discharge planning issues (Acute) Acute exacerbation of chronic obstructive pulmonary disease (COPD) (Acute) T12 compression fracture (Acute) Ongoing leg pain (Acute) continue nSaid prn tramadol see surgeon next week consider topical analgesic on surrounding skin Hemoptysis (Acute) History of cataract removal with insertion of prosthetic lens (Acute 06/05/15) History of chest tube placement (Acute) Status post appendectomy (Acute) Status post laminectomy (Acute) Pain from implanted hardware (Chronic 10/30/18) S/P Hardware removal Bacterial pneumonia (Acute 11/23/13) Chronic anxiety (Chronic 06/22/13) Chronic emphysema syndrome (Chronic) Chronic pain in right shoulder (Chronic 11/20/13) Moderate protein malnutrition (Chronic 11/20/13) Contusion of right knee, initial encounter (Acute) Neck pain (Acute) Irritable bowel syndrome with diarrhea (Chronic) Cervical neck pain with evidence of disc disease (Chronic 06/22/13) History of tobacco abuse (Chronic) Anxiety (Chronic) LLL pneumonia (Acute ~03/30/18) Medical History (Updated 04/14/22 @ 15:22 by Marti Carmona MD) DNI (do not intubate) DNR (do not resuscitate) POLST (Physician Orders for Life-Sustaining Treatment) Surgical History Appendectomy CHEST TUBE Extraction of cataract 06/05/15; LEFT EYE; DR. ARAUZ H/O section Hx of hysterectomy LAMINECTOMY CERVICAL SPINE Family History Mother , at age 89, cardiac problems No problems noted. Father , at 81 Cancer Throat cancer Brother , at 71 Colon cancer Sister Diabetes DM2 Sister Diabetes DM2 Son No problems noted. Social History Smoking/Tobacco Use Status: Former Tobacco Use Quit Date: 09/16/13 Pack-years: 50 Smoking risk assessment performed?: Yes Alcohol Intake: former Year quit: 1979 Drug use: Never Substance use type: does not use Household members: none Housing: apartment Do you feel safe at home: Yes Do you feel safe in your relationship?: No Additional Social history: 16 years ago. Originally from [place], moved here to be near son and grand children. [place] House[place]. Enjoys contact with 4 grandchildren throughout the day (they are homeschooled and her home much of the time). Bedbound approximately 22 hours a day. On disability due to chronic back pain. 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 Approximate 75 pack year history of tobacco. No alcohol or illicit drug use endorsed. Results Last Vital Signs Temp 36.4 C L 04/13/22 08:00 Pulse 90 04/13/22 08:12 Resp 15 04/13/22 15:00 BP 128/69 04/13/22 08:12 Pulse Ox 94 04/13/22 15:00 Labs Result diagrams: 04/15/22 05:40 04/15/22 05:40 Labs: Laboratory Results - last 24 hr 04/11/22 04/11/22 04/12/22 12:40 12:57 14:30 WBC RBC Hgb Hct MCV MCH MCHC RDW Plt Count MPV Immature Gran % Neutrophils % Lymphocytes % Monocytes % Eosinophils % Basophils % Nucleated RBC % Absolute Neutrophils Absolute Lymphocytes Absolute Monocytes Absolute Eosinophils Absolute Basophils Sodium Potassium Chloride Carbon Dioxide Anion Gap BUN Creatinine Est GFR (CKD-EPI 2021) Glucose Calcium Magnesium C-Reactive Protein Procalcitonin Stool Campylobacter PCR Negative Stool Salmonella PCR Negative Stool Shigella PCR Negative Urine Legionella Ag Negative M. pneumoniae Source Cancelled M. pneumoniae (PCR) Cancelled Shiga Toxin (PCR) Negative Add-On Test Request 04/13/22 04/13/22 04/13/22 04:51 04:51 04:51 WBC 14.32 H RBC 3.92 L Hgb 11.5 Hct 37.7 MCV 96 H MCH 29.3 MCHC 30.5 L RDW 13.3 Plt Count 250 MPV 9.5 Immature Gran % 0.4 Neutrophils % 88.0 Lymphocytes % 5.8 Monocytes % 5.7 Eosinophils % 0.0 Basophils % 0.1 Nucleated RBC % 0.0 Absolute Neutrophils 12.60 H Absolute Lymphocytes 0.83 L Absolute Monocytes 0.82 H Absolute Eosinophils 0.00 Absolute Basophils 0.01 Sodium 139 Potassium 3.8 Chloride 100 Carbon Dioxide 38.6 H Anion Gap 0.4 L BUN 33 H Creatinine 1.9 H Est GFR (CKD-EPI 2020) 27.03 Glucose 112 H Calcium 9.1 Magnesium 2.5 H C-Reactive Protein Procalcitonin Stool Campylobacter PCR Stool Salmonella PCR Stool Shigella PCR Urine Legionella Ag M. pneumoniae Source M. pneumoniae (PCR) Shiga Toxin (PCR) Add-On Test Request DONE 04/13/22 04/13/22 04:51 04:51 WBC RBC Hgb Hct MCV MCH MCHC RDW Plt Count MPV Immature Gran % Neutrophils % Lymphocytes % Monocytes % Eosinophils % Basophils % Nucleated RBC % Absolute Neutrophils Absolute Lymphocytes Absolute Monocytes Absolute Eosinophils Absolute Basophils Sodium Potassium Chloride Carbon Dioxide Anion Gap BUN Creatinine Est GFR (CKD-EPI 2020) Glucose Calcium Magnesium C-Reactive Protein 6.99 H Procalcitonin 0.8 Stool Campylobacter PCR Stool Salmonella PCR Stool Shigella PCR Urine Legionella Ag M. pneumoniae Source M. pneumoniae (PCR) Shiga Toxin (PCR) Add-On Test Request
[2022-04-13] MEDS: Methocarbamol 750 MG TAB PO (22:20)
[2022-04-14] VITALS (38 sets, daily range): BP systolic 112–148; BP diastolic 57–76; PULSE 81–97; RESP 8–22; TEMP 34–37; O2SAT 87–99
--- NOTE | 2022-04-14 | DI.US_ITS ---
Exam(s) US RENAL EXAM: US RENAL CLINICAL HISTORY: TERESA. TECHNIQUE: Schultz scale, color and spectral Doppler were used. COMPARISON: No exams were available for comparison FINDINGS: Renal size in cm: Right: 9.7. Left: 11.0. Echogenicity: Normal. Hydronephrosis: No. Cyst or mass: No. Nephrolithiasis: No. Other findings: There is a small amount of perisplenic ascites. Bladder:Normal. There is a Downing catheter in place. Ureteral jets: Right: Visualized and unremarkable. Left: The left ureteral jet was not visualized at this time. Prevoid vol:163 cc Postvoid vol:17 cc Renal color flow: Symmetric and within normal limits. IMPRESSION: 1. Kidneys are grossly unremarkable. 2. Small amount of perisplenic ascites. DATA REPOSITORY:
[2022-04-14] MEDS: PIPERACILLIN/TAZO 2.25 GM in Normal Saline 50 ML IVPB ×5 (00:13→23:06)
[2022-04-14] MEDS: Albuterol/Ipratropium 3 ML UPD VIAL UPD ×4 (00:14→23:18)
[2022-04-14] MEDS: metroNIDAZOLE 500 MG/100 ML BAG 100 MG IVPB ×3 (02:37→18:47)
[2022-04-14 06:17] LABS: Abs Immature Grans 0.08 10^3/uL (0.0-0.06); Absolute Basophil Count 0.02 10^3/uL (0.0-0.2); Basophils % 0.2; HCT 39.7 % (36.0-46.0); HGB 11.9 g/dL (11.2-15.7); Immature Grans % 0.7; Lymphocytes % 6.9; MCH 29.2 pg (27.0-33.0); MCV 97 fL (80-95); MPV 9.3 fL (8.0-11.0); Monocytes % 7.3; Neutrophils % 84.9; Platelet Count 252 10^3/uL (130-400); RBC 4.08 10^6/uL (3.93-5.22); RDW 13.5 % (11.7-14.6); RDW-SD 48.5 fL; WBC 10.94 10^3/uL (4.4-10.8)
[2022-04-14 06:18] LABS: Absolute Lymphocyte Count 0.75 10^3/uL (1.2-3.4); Absolute Neutrophil Count 9.29 10^3/uL (1.2-6.7)
[2022-04-14 06:32] LABS: Anion Gap 0.5 mmol/L (3-11); BUN 29 mg/dL (7-18); C-Reactive Protein 3.34 mg/dL (0.0-0.3); CO2 36.5 mmol/L (21.0-32.0); CREATININE 1.8 mg/dL (0.55-1.02); Calcium 9.2 mg/dL (8.5-10.1); Chloride 104 mmol/L (98-107); Estimated GFR 28.84 (mL/min/1.73m2); Glucose 107 mg/dL (74-106); Magnesium 2.4 mg/dL (1.8-2.4); Potassium 3.6 mmol/L (3.5-5.1); Sodium 141 mmol/L (136-145)
[2022-04-14] MEDS: Budesonide/Formoterol 80/4.5 6.9 GM 60 PUFF INH IH ×2 (07:40→19:53)
[2022-04-14] MEDS: Salt Supplement (BUFFERED) TAB 1 TAB PO ×2 (07:51→19:27)
[2022-04-14] MEDS: Roflumilast 500 MCG TAB PO (07:52)
[2022-04-14] MEDS: Cholecalciferol (Vitamin D3) 1,000 UNIT TAB 3000 UNITS PO (07:52)
[2022-04-14] MEDS: Gabapentin 100 MG CAP PO ×3 (07:52→19:27)
[2022-04-14] MEDS: Oseltamivir 30 MG CAP PO (07:52)
[2022-04-14] MEDS: clonazePAM 1 MG TAB PO ×3 (07:53→19:27)
[2022-04-14] MEDS: Sertraline 100 MG TAB PO (07:53)
[2022-04-14] MEDS: Omeprazole 20 MG CAPCR 40 MG PO (07:53)
[2022-04-14] MEDS: methylPREDNISolone SUCC 40 MG VIAL IVP (07:54)
[2022-04-14] MEDS: Enoxaparin 30 MG/0.3 ML SYR SC (07:54)
[2022-04-14] MEDS: Benzonatate 100 MG CAP PO ×3 (07:57→19:27)
[2022-04-14] MEDS: guaiFENesin 600 MG TABCR PO ×2 (08:00→19:27)
--- NOTE | 2022-04-14 08:25 | CMPROGNOTE_ITS ---
- If Service Date Differs Date of service: 04/14/22 Time of Service: 08:25 Care Management Progress Note S/O:Laney was sitting up in bed when CM met with her. She seemed a bit more confused and forgetful today. Her son Stanley was also visiting at the time and noticed this as well. He shared that Laney confused him with her today and mixed up the names of his children. A Palliative Care family meeting is scheduled for tomorrow at 1pm. Stanley plans to attend as well as Laney, Palliativ e Care and CM. Clinically, Laney remains ICU level of care due to her high oxygen needs. She is receiving high flow nasal oxygen during the day and is on bipap at night. A: Laney is a 76 year old woman admitted on 04/11/22 with Influenza and pneumonia P:Anticipate Laney will be discharged home with a resumption of home health services when medically cleared. She will follow up with Pulmonology, her PCP and plan of care. CM will continue to support Laney and assess for discharge needs.
[2022-04-14] MEDS: Methocarbamol 750 MG TAB PO (09:23)
--- NOTE | 2022-04-14 12:06 | PT.INTREAT ---
Date of service: 04/14/22 PT Notes Visit Reasons: Flu, Pneumonia, COPD Inpatient Physical Therapy Treatment Note [facility] Date: 04/14/2022 PRECAUTIONS: Activity as tolerated, fall, [employer] O2 SUBJECTIVE: Laney is pleasant and agreeable to participating in PT. When asked how she is feeling, she laughs and states well, I'm here. OBJECTIVE: PAIN: Patient c/o L shoulder pain BED MOBILITY/TRANSFERS: Supine-sit: I Sit-supine: I Sit-stand: SBA Stand-sit: SBA GAIT Assistive Device: FWW Weight bearing: Full Assist: SBA Distance: 5' F/B x5 each in a.m.; ~40' in room Deviation: Slightly anteroflexed posture, short step height and length, mild SOB and fatigue THEREX: Patient was instructed in a LE strengthening program, completed in a supine position, to include: ankle pumps, quad sets, glute sets, heel slides and hip abduction. ASSESSMENT: Patient tolerated session without complaint. She demonstrates improved stability with gait training with use of FWW. Mobility continues to be limited due to connection to [employer] supplemental oxygen unit. PLAN: Continue with global strengthening and general conditioning for improved mobility and activity tolerance. TREATMENT CODE/TIME: Session 1: 27 minutes; 06231, [id number] (10:09) Session 2: 26 minutes; 96916 x2 (14:36)
[2022-04-14] MEDS: Diclofenac 1% Gel 100 GM TUBE TP ×3 (13:33→19:46)
--- NOTE | 2022-04-14 14:34 | W.PM.PROGNOT ---
Date of Service Date of service: 04/14/22 Time of Service: 09:00 Assessment and Plan Assessment and plan (1) Acute on chronic respiratory failure with hypoxia and hypercapnia: Status: Acute Assessment and plan: Stable. Continue humidified heated high flow NC during the day and BiPAP at night. Will keep in ICU given current O2 requirements. Continue scheduled + prn nebs, steroids, abx, tamiflu. The patient is DNR/DNI. Seen by palliative care. (2) C. difficile colitis: Status: Acute Assessment and plan: Continue IV flagyl + PO vanco, probiotics, questran. Continue zosyn (d/c as soon as possible). (3) COPD exacerbation: Status: Acute Assessment and plan: As above (4) Influenza A: Status: Acute Assessment and plan: As above (5) Secondary bacterial pneumonia: Status: Acute Assessment and plan: As above MRSA nares negative Sputum C&S with normal ailyn so far. (6) Chronic pain: Status: Chronic Assessment and plan: Will increase butrans patch to 7.5 mcg/hr. Add voltaren gel. Continue muscle relaxants, heat. (7) DVT prophylaxis: Status: Acute Assessment and plan: SC enoxaparin (8) Discharge planning issues: Status: Acute Assessment and plan: DNR/DNI Keep in ICU for now. Subjective Subjective Interval history since last seen: Laney's biggest complaint today is her shoulder and back pain. Her breathing, she feels, is affected by this pain. No dizziness or nausea. Breathing is a little better. Remains on humidified heated high flow NC @ 55% FiO2 40 L. Had diarrhea today. Exam Narrative Exam Narrative: General: Pleasant elderly female who looks better, sitting up in a chair, speaking in full sentences, A&Ox3, NAD, on humidified heated high flow NC HEENT: EOMI, MMM Heart: RRR Lungs: Diminished breath sounds B Abdomen: soft, tender in lower abdomen, nondistended Extremities: no edema BLEs Objective Last Vital Signs Temp 36.8 C 04/14/22 09:59 Pulse 89 04/14/22 12:01 Resp 16 04/14/22 12:01 BP 145/76 H 04/14/22 12:01 Pulse Ox 99 04/14/22 12:01 Laboratory Results - last 24 hr 04/14/22 04/14/22 05:30 05:30 WBC 10.94 H RBC 4.08 Hgb 11.9 Hct 39.7 MCV 97 H MCH 29.2 MCHC 30.0 L RDW 13.5 Plt Count 252 MPV 9.3 Immature Gran % 0.7 Neutrophils % 84.9 Lymphocytes % 6.9 Monocytes % 7.3 Eosinophils % 0.0 Basophils % 0.2 Nucleated RBC % 0.0 Absolute Neutrophils 9.29 H Absolute Lymphocytes 0.75 L Absolute Monocytes 0.80 Absolute Eosinophils 0.00 Absolute Basophils 0.02 Sodium 141 Potassium 3.6 Chloride 104 Carbon Dioxide 36.5 H Anion Gap 0.5 L BUN 29 H Creatinine 1.8 H Est GFR (CKD-EPI 2020) 28.84 Glucose 107 H Calcium 9.2 Magnesium 2.4 C-Reactive Protein 3.34 H
[2022-04-14 16:10] LABS: Streptococcus Pneumoniae Ag, U Positive (Negative)
--- NOTE | 2022-04-14 16:51 | CHAPLAIN ---
Laney was resting in bed when I visited. She remembered me from previous admissions, but it took a while for her to figure out who I was. She had questions about palliative care, leading up to her PC family meeting tomorrow at noon. We talked about the difference between PC and hospice. She talked about a decision she made that she thinks her son might not agree with, but she's already talked with him about it, she said. It has to do with her wishes for cremation and to have her ashes returned to [place]. Her son will be at the family meeting tomorrow and suggested she bring up any concerns then so they can be aired. Laney spoke about her grandchildren and how much she admires her daughter in law.
[2022-04-14] MEDS: Cholestyramine/Aspartame PKT 1 EACH PO (18:48)
[2022-04-15] VITALS (63 sets, daily range): BP systolic 102–147; BP diastolic 41–105; PULSE 75–107; RESP 8–23; TEMP 31–37.4; O2SAT 83–97
[2022-04-15] MEDS: metroNIDAZOLE 500 MG/100 ML BAG 100 MG IVPB ×3 (01:30→19:10)
[2022-04-15] MEDS: PIPERACILLIN/TAZO 2.25 GM in Normal Saline 50 ML IVPB ×3 (05:24→19:10)
[2022-04-15 06:09] LABS: Abs Immature Grans 0.03 10^3/uL (0.0-0.06); Absolute Basophil Count 0.01 10^3/uL (0.0-0.2); Absolute Eosinophil Count 0.01 10^3/uL (0.0-0.7); Absolute Lymphocyte Count 0.86 10^3/uL (1.2-3.4); Absolute Monocyte Count 0.78 10^3/uL (0.1-0.8); Absolute Neutrophil Count 6.18 10^3/uL (1.2-6.7); Basophils % 0.1; Eosinophils % 0.1; HCT 40.3 % (36.0-46.0); HGB 12.1 g/dL (11.2-15.7); Immature Grans % 0.4; Lymphocytes % 10.9; MCH 28.9 pg (27.0-33.0); MCV 96 fL (80-95); MPV 9.1 fL (8.0-11.0); Monocytes % 9.9; Neutrophils % 78.6; Platelet Count 265 10^3/uL (130-400); RBC 4.18 10^6/uL (3.93-5.22); RDW 13.4 % (11.7-14.6); RDW-SD 48.1 fL; WBC 7.87 10^3/uL (4.4-10.8)
[2022-04-15 06:25] LABS: Anion Gap 1.2 mmol/L (3-11); BUN 23 mg/dL (7-18); C-Reactive Protein 2.16 mg/dL (0.0-0.3); CO2 36.8 mmol/L (21.0-32.0); CREATININE 1.7 mg/dL (0.55-1.02); Calcium 9.2 mg/dL (8.5-10.1); Chloride 105 mmol/L (98-107); Estimated GFR 30.89 (mL/min/1.73m2); Glucose 99 mg/dL (74-106); Magnesium 2.2 mg/dL (1.8-2.4); Sodium 143 mmol/L (136-145)
[2022-04-15] MEDS: Budesonide/Formoterol 80/4.5 6.9 GM 60 PUFF INH IH ×2 (07:38→20:04)
--- NOTE | 2022-04-15 08:45 | PDOC.CMPRO ---
- If Service Date Differs Date of service: 04/15/22 Time of Service: 08:45 Care Management Progress Note S/O:Laney was sitting up in a chair when CM met with her. She engaged easily with CM and stated that she slept better last night than the night before. When asked how she is doing, Laney invariably answers well, I'm still here, or I'm still alive. A family meeting was held today with Laney and her son and [id number]. Dr. Reyes, Dr. Low, MARIA Cade, Lelia Webster, Miya from Palliative Care and Alexus from PT. Laney's medical issues and prognosis were discussed with the family and questions were answered. Hospice was also discussed and it was generally felt that Laney does meet hospice criteria at this point. The plan for now will be to continue current treatment to see if Laney's respiratory status improves. If it does not, then other conversations will take place in a few days. Laney has shown improvement with her kidney function and her CRP has come down as well as her WBC. CM continues to follow. A: Laney is a 76 year old woman admitted on 04/11/22 with Influenza, COPD and pneumonia P:Anticipate Laney will be discharged home with a resumption of home health services when medically cleared. If her condition does not improve or deteriorates, it is possible she may go home on hospice. Laney will follow up with Pulmonology, her PCP and plan of care. CM will continue to support Laney and assess for discharge needs.
[2022-04-15] MEDS: Lactated Ringers 1,000 ML 75 ML IV (08:49)
[2022-04-15] MEDS: Normal Saline Flush 10 ML SYR IVP ×3 (08:50→23:26)
[2022-04-15] MEDS: Ondansetron 4 MG/2 ML VIAL IVP (08:50)
[2022-04-15] MEDS: Cholestyramine/Aspartame PKT 1 EACH PO ×2 (09:29→20:18)
[2022-04-15] MEDS: Enoxaparin 30 MG/0.3 ML SYR SC (09:31)
[2022-04-15] MEDS: methylPREDNISolone SUCC 40 MG VIAL IVP (09:31)
[2022-04-15] MEDS: Benzonatate 100 MG CAP PO ×3 (09:32→22:13)
[2022-04-15] MEDS: guaiFENesin 600 MG TABCR PO ×2 (09:32→22:10)
[2022-04-15] MEDS: Sertraline 100 MG TAB PO (09:32)
[2022-04-15] MEDS: Oseltamivir 30 MG CAP PO (09:32)
[2022-04-15] MEDS: Gabapentin 100 MG CAP PO ×3 (09:32→22:11)
[2022-04-15] MEDS: clonazePAM 1 MG TAB PO ×3 (09:32→22:15)
[2022-04-15] MEDS: Cholecalciferol (Vitamin D3) 1,000 UNIT TAB 3000 UNITS PO (09:32)
[2022-04-15] MEDS: Roflumilast 500 MCG TAB PO (09:32)
[2022-04-15] MEDS: Salt Supplement (BUFFERED) TAB 1 TAB PO ×2 (09:32→22:13)
--- NOTE | 2022-04-15 09:32 | PGE_ITS ---
Date of Service Date of service: 04/15/22 Time of Service: 09:32 Assessment and Plan Assessment and plan (1) Acute on chronic respiratory failure with hypoxia and hypercapnia: Status: Acute Assessment and plan: Stable. Continue humidified heated high flow NC during the day and BiPAP at night. Will keep in ICU given current O2 requirements. Continue scheduled + prn nebs, steroids, abx, tamiflu. The patient is DNR/DNI. Critical care time spent interviewing and examining the patient, reviewing studies, discussing case with patient's nurse and consulting physicians was 30 m inutes (2) Influenza A: Status: Acute Assessment and plan: As above (3) Secondary bacterial pneumonia: Status: Acute Assessment and plan: CXR w/ right basilar infiltrate. Sputum 04/12 normal oral ailyn; blood cultures 04/11 no growth. Nares swab for MRSA 04/11 was negative. Today is day #5 of Zosyn. I will dc Zosyn after today and treat w/ oral Augmentin for 2 more days (4) COPD exacerbation: Status: Acute Assessment and plan: As above (5) C. difficile colitis: Status: Acute Assessment and plan: Continue IV flagyl + PO vanco, probiotics, questran (6) Chronic pain: Status: Chronic Assessment and plan: Buprenorphine patch 7.5 mcg/hr patch, voltaren gel. Continue muscle relaxants, heat. (7) DVT prophylaxis: Status: Acute Assessment and plan: SC enoxaparin (8) Discharge planning issues: Status: Acute Assessment and plan: DNR/DNI Keep in ICU for now. Subjective Subjective Interval history since last seen: Patient w/ episode of nausea and emesis this morning. She has mild epigastric abdominal pain. Nausea improved w/ zofran. She remains on HFNC 50 LPM, 55% FIO2; has not tolerated transition to nc yet. Diarrhea still present. Exam Narrative Exam Narrative: Frail, elderly female sitting up in bed, alert and oriented x 3 Not in acute respiratory distress able to speak in full sentences. Neck veins are flat Lungs with diffusely diminished breath sounds with some faint end expiratory wheezes Heart is regular with no appreciable murmur rub or gallop Abdomen nondistended soft normal bowel sounds some mild epigastric tenderness without rebound tenderness or guarding Extremities without peripheral cyanosis or edema Objective Last Vital Signs Temp 37.0 C 04/15/22 04:10 Pulse 94 H 12/29/22 09:00 Resp 16 04/15/22 09:00 BP 146/76 H 04/15/22 09:00 Pulse Ox 94 04/15/22 09:00 Laboratory Results - last 24 hr 04/11/22 04/15/22 04/15/22 10:00 05:40 05:40 WBC 7.87 RBC 4.18 Hgb 12.1 Hct 40.3 MCV 96 H MCH 28.9 MCHC 30.0 L RDW 13.4 Plt Count 265 MPV 9.1 Immature Gran % 0.4 Neutrophils % 78.6 Lymphocytes % 10.9 Monocytes % 9.9 Eosinophils % 0.1 Basophils % 0.1 Nucleated RBC % 0.0 Absolute Neutrophils 6.18 Absolute Lymphocytes 0.86 L Absolute Monocytes 0.78 Absolute Eosinophils 0.01 Absolute Basophils 0.01 Sodium 143 Potassium 4.0 Chloride 105 Carbon Dioxide 36.8 H Anion Gap 1.2 L BUN 23 H Creatinine 1.7 H Est GFR (CKD-EPI 2020) 30.89 Glucose 99 Calcium 9.2 Magnesium 2.2 C-Reactive Protein 2.16 H Ur Strep pneumoniae Ag Positive A
[2022-04-15] MEDS: Omeprazole 20 MG CAPCR 40 MG PO (09:33)
[2022-04-15] MEDS: Diclofenac 1% Gel 100 GM TUBE TP ×4 (09:36→22:16)
[2022-04-15] MEDS: Albuterol/Ipratropium 3 ML UPD VIAL UPD ×3 (11:56→20:03)
--- NOTE | 2022-04-15 13:25 | PTTR_ITS ---
Date of service: 04/15/22 Time of Service: 12:38 PT Notes Visit Reasons: Flu, Pneumonia, COPD Inpatient Physical Therapy Treatment Note [facility] Date: 04/15/2022 PRECAUTIONS: Activity as tolerated, fall, [place] O2 SUBJECTIVE: Laney is pleasant and agreeable to participating in PT. She reports that she would like to get back to bed from the chair. OBJECTIVE: Participate in palliative care meeting, regarding patient's care plan. Present were son, DIL, Palliative Care practitioners, hospitalist, Drawing Kiln Supervisor, Geophysical Laboratory Chief, and myself. PAIN: Patient c/o shoulder pain BED MOBILITY/TRANSFERS: Sit-supine: I Sit-stand: SBA Stand-sit: SBA GAIT Assistive Device: FWW Weight bearing: Full Assist: SBA Distance: 10' in room Deviation: Slightly anteroflexed posture, short step height and length, mild SOB and fatigue, assist with management of lines, tubes, leads. THEREX: Held due to meeting. ASSESSMENT: Patient tolerated session without complaint. She demonstrates improved stability with gait training with use of FWW. Mobility continues to be limited due to connection to [employer] supplemental oxygen unit. PLAN: Continue with global strengthening and general conditioning for improved mobility and activity tolerance. TREATMENT CODE/TIME: Session 1: Hold x1/refuse x1 due to nausea/vomiting and not feeling well Session 2: 32 minutes; 33657 x2 (12:38)
--- NOTE | 2022-04-15 16:11 | PCPN_ITS ---
Date of service: 04/15/22 Time of Service: 12:00 Assessment and Plan Assessment and plan (1) Palliative care patient: Status: Acute Assessment and plan: Family meeting as described in HPI above. Overall impression is that patient's respiratory status is slightly improved. TERESA and C. difficile resolving. However respiratory status still critical component of recovery. Based on discussion today, recommendation was to continue aggressive treatment with less invasive respiratory support, completing antibiotics and Tamiflu. The hope is that patient's respiratory status will begin to definitively improve, although understand this will happen slowly given her advanced COPD. If patient has no further improvement and continues to be dependent on high flow oxygen, we will need to explore further choices of switching to hospice level care versus pursuing home type of BiPAP machine (with consult with ceramics test engineer when she returns after the weekend). Patient continues to have capacity at this point to make decisions. If patient's respiratory status declines, patient and family are interested in discussing comfort measures and possibly hospice. This was discussed more in depth at meeting 2 days ago but touched on briefly again today. Patient and family are both aware of overall poor prognosis given her advanced COPD. Patient seems interested in hospice should her situation decline. I note that there is some discordance between what the patient desires and what the son is hoping for. Should her respiratory status decline or not improve and patient wants to transition to comfort measures only, son will need additional support. I agree with CM's impression that if patient recovers, patient may be interested in going home on hospice. We can discuss this at future visit. Additional recommendations: 1. Yesterday's increased confusion seemed to track with increase in clonazepam dose that I recommended. Suggest that clonazepam be reduced to scheduled 0.5 mg 3 times daily with additional as needed doses or just switch back to as needed. Note that prior to admission patient was using clonazepam 1 mg between 1 and 3 times a day (taking at least 1 dose almost every day). (2) Acute on chronic respiratory failure with hypoxia and hypercapnia: Status: Acute Assessment and plan: See above (3) Anxiety: Status: Chronic Assessment and plan: See above (4) Cervical neck pain with evidence of disc disease: Status: Chronic Assessment and plan: Increased dose Butrans patch working well. Voltaren topical seems to be helping as well. Subjective Subjective Interval history since last seen: Ms. Stephens is a 76-year-old female with severe COPD previously on home oxygen and history of chronic neck and back pain who is now on day 4 of hospital admission for pulmonary infection (influenza A with secondary right middle lobe pneumonia) and respiratory failure with hypercapnia (requiring high flow oxygen and BiPAP). Hospitalization has been complicated by TERESA (definitely resolving) and C. difficile ( improving) I met with the patient and family today to follow-up, offer support, review goals of care. Clinical updates: -TERESA resolving and C. difficile symptoms improving. -Although patient said she was going to refuse further nocturnal BiPAP at time of our visit 2 days ago, she has been using it nightly for the last 2 nights. They have been unable to wean her onto lower oxygen during the day. -She continues to take in some liquids but has minimal solid food intake and no appetite. 1 episode of vomiting this morning after being given Questran. -Yesterday she had some mild confusion, which is new. We recommended that her clonazepam be changed to 1 mg 3 times daily, which likely contributed to this mild confusion. Butrans was also increased because of the neck and upper back pain, less likely to be because of the confusion. -Physical therapy reports that patient has been mostly participating well with physical therapy and is able to walk around the bed and back with a walker. They impressed by her efforts. -Patient has expressed to nursing staff at times that I am dying . At other times she reports that she is still fighting . Family meeting today with Patient, her son Stanley and [id number] Brittny. Dr. Reyes, Dr. Low, case management?Lelia Cade Anne from Palliative Care and Alexus from PT and nurse harvey from ICU attended as well. Overall impression was that there was slight improvement, especially given her ability to participate in physical therapy. However given her severe underlying COPD, she still has a difficult course ahead and hopefully will show more definitive improvement in respiratory status with decreased oxygen needs over the next 48 hours. Reviewed with son Stanley and [id number] patient's diagnosis, severity of her underlying chronic lung condition, long-term poor prognosis, patient's desire to be kept comfortable and her interest in transitioning to comfort measures only should she be unable to return home. Objective Last Vital Signs Temp 37.4 C 04/15/22 12:41 Pulse 85 04/15/22 16:00 Resp 16 04/15/22 16:01 BP 112/53 L 04/15/22 16:00 Pulse Ox 88 L 04/15/22 16:01 Laboratory Results - last 24 hr 04/15/22 04/15/22 05:40 05:40 WBC 7.87 RBC 4.18 Hgb 12.1 Hct 40.3 MCV 96 H MCH 28.9 MCHC 30.0 L RDW 13.4 Plt Count 265 MPV 9.1 Immature Gran % 0.4 Neutrophils % 78.6 Lymphocytes % 10.9 Monocytes % 9.9 Eosinophils % 0.1 Basophils % 0.1 Nucleated RBC % 0.0 Absolute Neutrophils 6.18 Absolute Lymphocytes 0.86 L Absolute Monocytes 0.78 Absolute Eosinophils 0.01 Absolute Basophils 0.01 Sodium 143 Potassium 4.0 Chloride 105 Carbon Dioxide 36.8 H Anion Gap 1.2 L BUN 23 H Creatinine 1.7 H Est GFR (CKD-EPI 2020) 30.89 Glucose 99 Calcium 9.2 Magnesium 2.2 C-Reactive Protein 2.16 H
--- NOTE | 2022-04-15 16:22 | CHAPLAIN ---
There was a family meeting today with Laney, her son Stanley, daughter in law Nury, Dr. Reyes, CM Alyssia Byers, PT Alexus, and Miya Smith REHAB SPECIALIST and Dr. Low from . Laney said she is tired. She would prefer to go home than go to the [facility] or [employer], she stated that clearly. It was decided to see how Laney does for the next couple of days, to see if she continues to improve and if her need for breathing support lessens and she might be able to return home with home health care in place and a trilogy. Hospice was also discussed. Laney would likely qualify, according to medical staff. She told Stanley she has some fight left in her, but also that she is tired. Her shoulders have increased pain often and that has been difficult for Laney. Dr. Reyes stated that Laney should not be left home alone any more. Laney lives with Alina and their four children. The kids are home schooled, so they are around Laney often and she seems to be very close to them. Stanley teachers at . He spoke with Dr. Low about the possibility of taking [place] time to be with Laney.
[2022-04-15] MEDS: Methocarbamol 750 MG TAB PO (22:12)
[2022-04-15] MEDS: Amoxicillin 875/Clav. 125 TAB PO (22:12)
[2022-04-15] MEDS: Psyllium PKT 1 EACH PO (22:16)
--- NOTE | 2022-04-15 23:41 | NUR.NOTE ---
Nursing Note: order for LR written 04/14 akn by rn 1st scanned 04/15, assume 04/15 bag now hanging is 2nd bag willnot hang more when this is done- reviewed plan with oncoming rn
[2022-04-16] VITALS (44 sets, daily range): BP systolic 110–141; BP diastolic 47–84; PULSE 70–115; RESP 4–21; TEMP 34–37; O2SAT 64–96
[2022-04-16] MEDS: Normal Saline Flush 10 ML SYR IVP (02:06)
[2022-04-16] MEDS: metroNIDAZOLE 500 MG/100 ML BAG 100 MG IVPB ×3 (02:06→18:33)
[2022-04-16 05:42] LABS: Abs Immature Grans 0.07 10^3/uL (0.0-0.06); Absolute Basophil Count 0.01 10^3/uL (0.0-0.2); Absolute Eosinophil Count 0.07 10^3/uL (0.0-0.7); Absolute Lymphocyte Count 1.13 10^3/uL (1.2-3.4); Absolute Monocyte Count 0.83 10^3/uL (0.1-0.8); Absolute Neutrophil Count 5.31 10^3/uL (1.2-6.7); Basophils % 0.1; Eosinophils % 0.9; HCT 38.9 % (36.0-46.0); HGB 12.1 g/dL (11.2-15.7); Immature Grans % 0.9; Lymphocytes % 15.2; MCH 29.6 pg (27.0-33.0); MCHC 31.1 % (32.0-36.0); MCV 95 fL (80-95); Monocytes % 11.2; Neutrophils % 71.7; Platelet Count 252 10^3/uL (130-400); RBC 4.09 10^6/uL (3.93-5.22); RDW 13.5 % (11.7-14.6); RDW-SD 47.7 fL; WBC 7.42 10^3/uL (4.4-10.8)
[2022-04-16 06:11] LABS: ALT 11 U/L (14-59); AST 22 U/L (15-37); Albumin 2.3 g/dL (3.4-5.0); Alkaline Phosphatase 76 U/L (46-116); Anion Gap -0.3 mmol/L (3-11); BUN 21 mg/dL (7-18); Bilirubin, Total 0.3 mg/dL (0.2-1.0); CO2 37.3 mmol/L (21.0-32.0); CREATININE 1.5 mg/dL (0.55-1.02); Chloride 103 mmol/L (98-107); Estimated GFR 35.89 (mL/min/1.73m2); Glucose 98 mg/dL (74-106); Magnesium 1.8 mg/dL (1.8-2.4); Potassium 3.8 mmol/L (3.5-5.1); Sodium 140 mmol/L (136-145); Total Protein 5.9 g/dL (6.4-8.2)
--- NOTE | 2022-04-16 06:41 | NUR.NOTE ---
Nursing Note: Patient with c/o SOB. SPO2 74%. Just completed Acapella x10. Placed on BiPap at prior settings.
--- NOTE | 2022-04-16 08:33 | PDOC.CMPRO ---
- If Service Date Differs Date of service: 04/16/22 Time of Service: 08:33 Care Management Progress Note S/O: Laney is lying in bed, texting with family when CM met with her. She is awake, alert and able to engage in conversation. She is working with PT. The plan for now will be to continue current treatment to see if Laney's respiratory status improves. If it does not, then other conversations will take place in a few days. Laney has shown improvement with her kidney function and her CRP has come down as well as her WBC. CM continues to follow. A: Laney is a 76 year old woman admitted on 04/11/22 with Influenza, COPD and pneumonia P:Anticipate Laney will be discharged home with a resumption of home health services when medically cleared. If her condition does not improve or deteriorates, it is possible she may go home on hospice. Laney will follow up with Pulmonology, her PCP and plan of care. CM will continue to support Laney and assess for discharge needs.
[2022-04-16] MEDS: Albuterol/Ipratropium 3 ML UPD VIAL UPD ×4 (09:15→20:09)
[2022-04-16] MEDS: methylPREDNISolone SUCC 40 MG VIAL IVP (09:27)
[2022-04-16] MEDS: Cholestyramine/Aspartame PKT 1 EACH PO ×2 (09:27→18:33)
[2022-04-16] MEDS: Psyllium PKT 1 EACH PO ×2 (09:27→20:26)
[2022-04-16] MEDS: Enoxaparin 30 MG/0.3 ML SYR SC (09:28)
[2022-04-16] MEDS: Omeprazole 20 MG CAPCR 40 MG PO (09:29)
[2022-04-16] MEDS: Cholecalciferol (Vitamin D3) 1,000 UNIT TAB 3000 UNITS PO (09:29)
[2022-04-16] MEDS: Salt Supplement (BUFFERED) TAB 1 TAB PO (09:29)
[2022-04-16] MEDS: Gabapentin 100 MG CAP PO ×3 (09:29→20:25)
[2022-04-16] MEDS: clonazePAM 1 MG TAB PO (09:29)
[2022-04-16] MEDS: Benzonatate 100 MG CAP PO ×3 (09:29→20:25)
[2022-04-16] MEDS: Amoxicillin 875/Clav. 125 TAB PO ×2 (09:29→20:25)
[2022-04-16] MEDS: Roflumilast 500 MCG TAB PO (09:29)
[2022-04-16] MEDS: Oseltamivir 30 MG CAP PO (09:29)
[2022-04-16] MEDS: Sertraline 100 MG TAB PO (09:30)
[2022-04-16] MEDS: guaiFENesin 600 MG TABCR PO ×2 (09:30→20:26)
[2022-04-16] MEDS: Diclofenac 1% Gel 100 GM TUBE TP ×4 (09:31→20:26)
--- NOTE | 2022-04-16 09:39 | W.PM.PROGNOT ---
Date of Service Date of service: 04/16/22 Time of Service: 09:39 Assessment and Plan Assessment and plan (1) Acute on chronic respiratory failure with hypoxia and hypercapnia: Status: Acute Assessment and plan: secondary to influenza A and CAP superimposed on COPD and chronic respiratory failure w/ hypoxemia and hypercapnea. She completed 5 days of Zosyn and her leukocytosis improved. She had mildly elevated procalcitionin on admission that mery to 0.8 and she had RLL infiltrates that were new. She is now on oral Augmentin which I will continue for 3 days. I will recheck her CXR and repeat her procalcitonin level to assist w/ decision on when to stop the Augmentin. Critical care time spent interviewing and examining the patient, reviewing studies, discussing case with patient's nurse and consulting physicians was 45 minutes (2) Influenza A: Status: Acute Assessment and plan: currently on d # 6/ Tamiflu at renal adjusted dosing of 30 mg daily. (3) Secondary bacterial pneumonia: Status: Acute Assessment and plan: CXR w/ right basilar infiltrate. Sputum 04/12 normal oral ailyn; blood cultures 04/11 no growth. Nares swab for MRSA 04/11 was negative. completed 5 days of Zosyn, now on d#2 of Augmentin. recheck her procalcitonin and repeat her CXR (4) COPD exacerbation: Status: Acute Assessment and plan: currently on LABA/ICS (Symbicort), scheduled DuoNeb qid along w/ prn albuterol and Daliresp. Not clear as to why she is not on a LAMA. I will add Spiriva to her regimen. Currently on methylprednisolone 40 mg daily. I will change to prednisone 60 mg daily. She will probably need prolonged taper and therefore I have added TMP/SMX DS daily for PJP prophylaxis. She may qualify for Trilogy device for home use (5) C. difficile colitis: Status: Acute Assessment and plan: Continue IV flagyl + PO vanco, probiotics, questran. She is improving (6) Chronic pain: Status: Chronic Assessment and plan: Buprenorphine patch 7.5 mcg/hr patch, voltaren gel. Continue muscle relaxants, heat. (7) DVT prophylaxis: Status: Acute Assessment and plan: SC enoxaparin (8) Discharge planning issues: Status: Acute Assessment and plan: DNR/DNI Keep in ICU for now d/t her high oxygen requirements. Subjective Subjective Interval history since last seen: Patient's main concern/complaint this morning is her shoulder pains. She is being medicated w/ Voltaren gel, she has buprenorphine patch and tylenol. Her Celebrex has been on hold d/t azotemia which is improving. From respiratory standpoint she still has high oxygen requirements. She is on HFNC at 50 LPM and 35% FIO2, when she is on BIPAP she is on 14/6 and 35%. She has no sputum production. From GI standpoint her diarrhea is slowing down w/ no BM overnight. Exam Narrative Exam Narrative: Laney is alert and oriented, sitting up attempting to eat breakfast, however she has to take breaks between bites d/t desaturation into the upper 70's% Lungs: diffusely diminshed breath sounds, no rhonchi, rales or wheezes Heart: regular but tachycardic in the low 100's. Abdomen: soft, nontender, normal bowel sounds Extremities: no edema or cyanosis Objective Last Vital Signs Temp 36.4 C L 04/16/22 06:00 Pulse 89 04/16/22 06:00 Resp 16 04/16/22 06:01 BP 134/63 04/16/22 06:00 Pulse Ox 66 L 04/16/22 06:01 Laboratory Results - last 24 hr 04/16/22 04/16/22 05:25 05:25 WBC 7.42 RBC 4.09 Hgb 12.1 Hct 38.9 MCV 95 MCH 29.6 MCHC 31.1 L RDW 13.5 Plt Count 252 MPV 9.0 Immature Gran % 0.9 Neutrophils % 71.7 Lymphocytes % 15.2 Monocytes % 11.2 Eosinophils % 0.9 Basophils % 0.1 Nucleated RBC % 0.0 Absolute Neutrophils 5.31 Absolute Lymphocytes 1.13 L Absolute Monocytes 0.83 H Absolute Eosinophils 0.07 Absolute Basophils 0.01 Sodium 140 Potassium 3.8 Chloride 103 Carbon Dioxide 37.3 H Anion Gap -0.3 L BUN 21 H Creatinine 1.5 H Est GFR (CKD-EPI 2020) 35.89 Glucose 98 Calcium 9.0 Magnesium 1.8 Total Bilirubin 0.3 AST 22 ALT 11 L Alkaline Phosphatase 76 Total Protein 5.9 L Albumin 2.3 L
[2022-04-16] MEDS: Budesonide/Formoterol 80/4.5 6.9 GM 60 PUFF INH IH ×2 (09:45→20:04)
--- NOTE | 2022-04-16 11:56 | PT.INTREAT ---
Date of service: 04/16/22 Time of Service: 11:30 PT Notes Visit Reasons: Flu, Pneumonia, COPD Inpatient Physical Therapy Treatment Note [facility] Date: 04/16/2022 PRECAUTIONS: Activity as tolerated, fall, [place] O2 SUBJECTIVE: Laney is pleasant and agreeable to participating in PT. She reports that she is not feeling any better today. She states that she would like to get back into bed. OBJECTIVE: PAIN: Patient c/o neck and B shoulder pain BED MOBILITY/TRANSFERS: Sit-supine: I Sit-stand: SBA with cueing for safety Stand-sit: SBA Chair-bed: SBA GAIT Assistive Device: FWW Weight bearing: Full Assist: SBA Distance: 10' Deviation: SOB, anteroflexed posture, short step height and length, increased fatigue THEREX: Patient was instructed in a LE strengthening program, completed in a long-sitting position, to include: ankle pumps, quad sets, glute sets, heel slides and hip abduction. Instructed patient to take extended rests between exercises due to decreased O2 saturation. TOILETING: Patient toileted with assist. Stand-pivot transfer from commode to bed with SBA. VITALS: Monitored continuously throughout session. SaO2: Ranged between 78% - 90% on 50L at 35% FiO2 with gait training and ther ex. ASSESSMENT: Patient tolerated session with complaint of significant SOB with gait training, limiting her activity tolerance. PLAN: Continue with global strengthening and general conditioning for improved mobility and activity tolerance. TREATMENT CODE/TIME: Session 1: 27 minutes; [id number] x2 (11:30) Session 2: 17 minutes; [id number] (13:22)
[2022-04-16 12:07] LABS: Procalcitonin 0.2 ng/mL
[2022-04-16] MEDS: Methocarbamol 750 MG TAB PO (12:46)
[2022-04-16] MEDS: Sulfameth/Trimeth DS TAB 1 TAB PO (12:46)
--- NOTE | 2022-04-16 14:33 | CHAPLAIN ---
I visited with Laney this afternoon while she was resting in bed. She still has high oxygen requirements according to Dr. Reyes's notes. Today Laney shared some experiences of healing in her family that she explained were prompted by prayers and scripture. Laney also talked about her relationship with God, and about getting into heaven. She said again that she is tired and she knows decisions about the direction of her care (curative or comfort) will need to be made depending on her progress in the next few days. Laney lives with her son Stanley and his Brittny, and their four children, who are home schooled, and so around Laney often. The family seems very supportive of Laney. At a family meeting yesterday, Dr. Reyes told Stanley and Brittny that Laney will not likely be able to be left alone when she returns home. I will continue to visit.
[2022-04-16] MEDS: clonazePAM 0.5 MG TAB PO ×2 (14:39→20:25)
[2022-04-16] MEDS: Tiotropium Bromide-Respimat 10 PUFF INH 2 PUFF IH (16:26)
[2022-04-17] VITALS (63 sets, daily range): BP systolic 124–148; BP diastolic 56–77; PULSE 83–115; RESP 8–20; TEMP 34–36.8; O2SAT 83–98
[2022-04-17] MEDS: Normal Saline Flush 10 ML SYR IVP ×3 (00:41→21:33)
[2022-04-17] MEDS: metroNIDAZOLE 500 MG/100 ML BAG 100 MG IVPB ×3 (02:01→17:40)
[2022-04-17] MEDS: Normal Saline 500 ML 10 ML IV (02:53)
[2022-04-17] MEDS: Salt Supplement (BUFFERED) TAB 1 TAB PO ×2 (07:42→21:27)
[2022-04-17] MEDS: Roflumilast 500 MCG TAB PO (07:42)
[2022-04-17] MEDS: Sulfameth/Trimeth DS TAB 1 TAB PO (07:42)
[2022-04-17] MEDS: predniSONE 20 MG TAB 60 MG PO (07:42)
[2022-04-17] MEDS: Gabapentin 100 MG CAP PO ×3 (07:43→21:29)
[2022-04-17] MEDS: Cholecalciferol (Vitamin D3) 1,000 UNIT TAB 3000 UNITS PO (07:43)
[2022-04-17] MEDS: Sertraline 100 MG TAB PO (07:43)
[2022-04-17] MEDS: clonazePAM 0.5 MG TAB PO ×3 (07:43→21:27)
[2022-04-17] MEDS: Omeprazole 20 MG CAPCR 40 MG PO (07:43)
[2022-04-17] MEDS: Amoxicillin 875/Clav. 125 TAB PO (07:44)
[2022-04-17] MEDS: Benzonatate 100 MG CAP PO ×3 (07:44→21:28)
[2022-04-17] MEDS: Psyllium PKT 1 EACH PO ×2 (07:44→21:29)
[2022-04-17] MEDS: guaiFENesin 600 MG TABCR PO ×2 (07:44→21:28)
[2022-04-17] MEDS: Enoxaparin 30 MG/0.3 ML SYR SC (07:44)
[2022-04-17] MEDS: Diclofenac 1% Gel 100 GM TUBE TP ×4 (07:46→21:30)
[2022-04-17] MEDS: Albuterol/Ipratropium 3 ML UPD VIAL UPD ×4 (07:55→21:27)
[2022-04-17] MEDS: Budesonide/Formoterol 80/4.5 6.9 GM 60 PUFF INH IH ×2 (07:55→21:30)
[2022-04-17] MEDS: Tiotropium Bromide-Respimat 10 PUFF INH 2 PUFF IH (08:14)
[2022-04-17] MEDS: Ondansetron 4 MG/2 ML VIAL IVP (09:17)
[2022-04-17] MEDS: Cholestyramine/Aspartame PKT 1 EACH PO ×2 (09:25→18:06)
--- NOTE | 2022-04-17 10:46 | W.PM.PROGNOT ---
Date of Service Date of service: 04/17/22 Time of Service: 10:46 Assessment and Plan Assessment and plan (1) Acute on chronic respiratory failure with hypoxia and hypercapnia: Status: Acute Assessment and plan: secondary to influenza in setting of end stage COPD w/ superimposed CAP. Patient now finishing Augmentin for her pneumonia and has shown improvment in her inflammatory markers and she has finished her Tamiflu yesterday. She is now on prednisone along w/ her LABA and LAMA but still required HFNC and BIPAP. She would benefit from Trilogy device Critical care time spent interviewing and examining the patient, reviewing studies, discussing case with patient's nurse and consulting physicians was 30 minutes (2) Influenza A: Status: Acute Assessment and plan: completed her Tamiflu (3) Secondary bacterial pneumonia: Status: Acute Assessment and plan: completed one week of Zosyn, now on Augmentin which she will complete over the weekend (4) COPD exacerbation: Status: Acute Assessment and plan: as above (5) C. difficile colitis: Status: Acute Assessment and plan: stools improving. continue Flagyl and oral Vancomycin (6) Chronic pain: Status: Chronic Assessment and plan: Buprenorphine patch 7.5 mcg/hr patch, voltaren gel. Continue muscle relaxants, heat. (7) DVT prophylaxis: Status: Acute Assessment and plan: SC enoxaparin (8) Discharge planning issues: Status: Acute Assessment and plan: DNR/DNI Keep in ICU for now d/t her high oxygen requirements. Subjective Subjective Interval history since last seen: Laney feels tired has no energy. She has chronic shoulder pain but it does improve with use of Voltaren gel. Her cough is nonproductive. She remains afebrile. No nausea or vomiting. Her diarrhea is improving. Still requires high flow nasal cannula during the day and BiPAP at night. Her SPO2 remained between 86 to 88% during a prolonged conversation with me. She did not seem to get dyspneic and was able to complete her sentences. However with any physical activity she desaturates easily. Exam Narrative Exam Narrative: Frail elderly female sitting up in bed she is alert and oriented person place time circumstance. She is not in acute respiratory distress but she does use her accessory respiratory muscles. Lungs with diffusely diminished breath sounds no rhonchi or rales or wheezes Heart regular rate and rhythm Abdomen soft nontender normal bowel sounds nondistended Extremities without peripheral edema or cyanosis Neuro exam grossly intact no focal motor deficits no facial asymmetry no focal cranial nerve deficits Objective Last Vital Signs Temp 36.8 C 04/17/22 08:57 Pulse 107 H 04/17/22 08:57 Resp 18 04/17/22 08:57 BP 133/61 04/17/22 06:00 Pulse Ox 91 L 04/17/22 08:39 Laboratory Results - last 24 hr 04/16/22 05:25 Procalcitonin 0.2
--- NOTE | 2022-04-17 11:13 | PT.INNT ---
Date of service: 04/17/22 Time of Service: 11:10 PT Notes Visit Reasons: Flu, Pneumonia, COPD 04/17/2022 Spoke with patient's nurse who indicated that Laney had been up to the commode x 2 this morning and is very fatigued. I did speak with Laney to ask if she would like to try doing her PT but she stated she was too tired. Will check with patient tomorrow and proceed as she is able to tolerate.
[2022-04-17] MEDS: Methocarbamol 750 MG TAB PO (21:28)
[2022-04-18] VITALS (50 sets, daily range): BP systolic 119–145; BP diastolic 56–93; PULSE 75–111; RESP 4–24; TEMP 34–36.9; O2SAT 86–94
[2022-04-18] MEDS: metroNIDAZOLE 500 MG/100 ML BAG 100 MG IVPB ×3 (02:43→17:36)
[2022-04-18 06:00] LABS: BE (Venous) 13 mmol/L (-2-3); HCO3 (Venous) 36 mmol/L (23-28); pCO2 (Venous) 46 mmHg (41-51); pH (Venous) 7.51 (7.31-7.41); pO2 (Venous) 114 mmHg
[2022-04-18 06:02] LABS: Abs Immature Grans 0.09 10^3/uL (0.0-0.06); Absolute Basophil Count 0.01 10^3/uL (0.0-0.2); Absolute Eosinophil Count 0.06 10^3/uL (0.0-0.7); Absolute Lymphocyte Count 1.02 10^3/uL (1.2-3.4); Absolute Monocyte Count 0.86 10^3/uL (0.1-0.8); Basophils % 0.1; Eosinophils % 0.7; HCT 37.5 % (36.0-46.0); HGB 11.8 g/dL (11.2-15.7); Immature Grans % 1.1; Lymphocytes % 12.4; MCH 29.1 pg (27.0-33.0); MCHC 31.5 % (32.0-36.0); MCV 93 fL (80-95); MPV 9.2 fL (8.0-11.0); Monocytes % 10.4; Neutrophils % 75.3; Platelet Count 269 10^3/uL (130-400); RBC 4.05 10^6/uL (3.93-5.22); RDW 13.6 % (11.7-14.6); RDW-SD 46.5 fL; WBC 8.24 10^3/uL (4.4-10.8)
[2022-04-18 06:04] LABS: O2 Sat (Venous) > 99 %
[2022-04-18 06:21] LABS: ALT 9 U/L (14-59); AST 16 U/L (15-37); Albumin 2.5 g/dL (3.4-5.0); Alkaline Phosphatase 70 U/L (46-116); Anion Gap 3.2 mmol/L (3-11); BUN 22 mg/dL (7-18); Bilirubin, Total 0.3 mg/dL (0.2-1.0); CO2 34.8 mmol/L (21.0-32.0); CREATININE 1.3 mg/dL (0.55-1.02); Calcium 9.2 mg/dL (8.5-10.1); Chloride 103 mmol/L (98-107); Estimated GFR 42.62 (mL/min/1.73m2); Glucose 106 mg/dL (74-106); Potassium 4.3 mmol/L (3.5-5.1); Sodium 141 mmol/L (136-145)
[2022-04-18 06:55] LABS: Procalcitonin 0.1 ng/mL
[2022-04-18] MEDS: Budesonide/Formoterol 80/4.5 6.9 GM 60 PUFF INH IH ×2 (08:08→20:22)
[2022-04-18] MEDS: Albuterol/Ipratropium 3 ML UPD VIAL UPD ×4 (08:08→20:00)
[2022-04-18] MEDS: Tiotropium Bromide-Respimat 10 PUFF INH 2 PUFF IH (08:30)
[2022-04-18] MEDS: Diclofenac 1% Gel 100 GM TUBE TP ×4 (08:30→20:00)
[2022-04-18] MEDS: clonazePAM 0.5 MG TAB PO ×3 (08:37→20:01)
[2022-04-18] MEDS: Sulfameth/Trimeth DS TAB 1 TAB PO (08:38)
[2022-04-18] MEDS: Cholecalciferol (Vitamin D3) 1,000 UNIT TAB 3000 UNITS PO (08:38)
[2022-04-18] MEDS: Omeprazole 20 MG CAPCR 40 MG PO (08:39)
[2022-04-18] MEDS: Roflumilast 500 MCG TAB PO (08:39)
[2022-04-18] MEDS: guaiFENesin 600 MG TABCR PO ×2 (08:39→20:00)
[2022-04-18] MEDS: Benzonatate 100 MG CAP PO ×3 (08:40→20:01)
[2022-04-18] MEDS: Gabapentin 100 MG CAP PO ×3 (08:40→20:01)
[2022-04-18] MEDS: Sertraline 100 MG TAB PO (08:40)
[2022-04-18] MEDS: Salt Supplement (BUFFERED) TAB 1 TAB PO ×2 (08:40→20:01)
[2022-04-18] MEDS: predniSONE 20 MG TAB 40 MG PO (08:40)
[2022-04-18] MEDS: Enoxaparin 30 MG/0.3 ML SYR SC (08:41)
[2022-04-18] MEDS: Psyllium PKT 1 EACH PO ×2 (08:41→20:01)
--- NOTE | 2022-04-18 09:21 | PT.INTREAT ---
Date of service: 04/18/22 Time of Service: 09:00 PT Notes Visit Reasons: Flu, Pneumonia, COPD Inpatient Physical Therapy Treatment Note [facility] Date: 04/18/2022 PRECAUTIONS: Activity as tolerated, [place] O2 SUBJECTIVE: Stated her shoulders bother her a lot, finds the heating pad is helpful with this. Good with getting up to chair and doing light exercises. OBJECTIVE: PAIN: Bilateral shoulder pain. BED MOBILITY/TRANSFERS Rolling L/R: Able to independently roll to left to transfer from supine to sitting Supine-sit: HOB at 60 degrees with SBA Sit-stand: SBA and verbal cueing to push off from bed when standing. Stand-sit: CGA and verbal cueing to reach back for chair when sitting. Bed-Commode: With FWW and CGA of one Commode to chair: With FWW and CGA of one GAIT Assistive Device: FWW Weight bearing: Full Assist: CGA and verbal cueing for slow controlled breathing and safety with transfers Distance: stand pivot bed to commode and 2 ft commode to chair Deviation: Did have patient stand for 10 reps of stepping in place, but O2 desat to 67% with this. Once seated O2 level recovered back to 80's and was at 91% at conclusion of session, while in seated position eating custard and drinking her coffee. TOILETING: Patient toileted with assist.?Was able to have bowel movement. Assistance given with wiping buttock. VITALS: O2 Sat stayed within 76 to 89% with bed exercises and seated LAQs, as well as with short transfers to commode and chair. Dropped quickly with standing stepping in place. THEREX: AP, QS, assisted heel slides and seated LAQs for 10 reps each while in bed. ASSESSMENT: Tolerated all fair, but standing stepping in place did decrease sats quickly. PLAN: Continue with current POC, as patient is able to tolerate. TREATMENT CODE/TIME: 30142h8, 9:00 to 9:22 (22')
[2022-04-18] MEDS: Cholestyramine/Aspartame PKT 1 EACH PO ×2 (11:45→17:38)
--- NOTE | 2022-04-18 12:52 | W.PM.PROGNOT ---
Date of Service Date of service: 04/18/22 Time of Service: 12:52 Assessment and Plan Assessment and plan (1) Acute on chronic respiratory failure with hypoxia and hypercapnia: Status: Acute Assessment and plan: secondary to influenza in setting of end stage COPD w/ superimposed CAP. Patient now finished w/ her Augmentin for her pneumonia. Her inflammatory markers have improved w/ normal WBC and procalcitonin down to 0.1 and she has finished her Tamiflu as of 04/15.. She is now on prednisone along w/ her LABA and LAMA but still required HFNC and BIPAP. She would benefit from Trilogy device. I will recheck her CXR to see if her consolidations are clearing. Professional time spent interviewing and examining patient, discussion of goals of care with hospital team (care management, nursing and consulting professionals) was 20 minutes. (2) Influenza A: Status: Acute Assessment and plan: completed her Tamiflu (3) Secondary bacterial pneumonia: Status: Acute Assessment and plan: completed one week of Zosyn, and 2 days of Augmetin. normal WBC and procalcitonin. will repeat her CXR today. (4) COPD exacerbation: Status: Acute Assessment and plan: as above. continue prednisone high dose for total of 5 days (put her on TMP/SMX while on high dose prednisone. If this helps w/ her COPD then do steroid taper. continue LABA/ICS and LAMA. Would benefit from Trilogy (5) C. difficile colitis: Status: Acute Assessment and plan: stools improving. continue Flagyl and oral Vancomycin (6) Chronic pain: Status: Chronic Assessment and plan: Buprenorphine patch 7.5 mcg/hr patch, voltaren gel. Continue muscle relaxants, heat. (7) Protein calorie malnutrition: Status: Acute Assessment and plan: patient is on MVS w/ zinc and copper. add protein liquid supplements. consult nutrition services. add Marinol to stimulate her appetite (8) Depression: Status: Chronic Assessment and plan: add Remeron at night (9) DVT prophylaxis: Status: Acute Assessment and plan: SC enoxaparin (10) Discharge planning issues: Status: Acute Assessment and plan: DNR/DNI Keep in ICU for now d/t her high oxygen requirements. Subjective Subjective Interval history since last seen: Patient states that she feels a little better today. she ate some. No nausea. Still dyspneic w/ any activity. Remains on HFNC @ 50 LPM/44% FIO2 and BIPAP when not eating Exam Narrative Exam Narrative: Laney is very frail, however she is very alert and oriented x 3, able to talk in complete sentences but gets dyspneic at the end Lungs: diffusely diminished breath sounds, w/ some end expiratory wheezing Heart: tachy but regular Abdomen: soft, nontender Extremities: no edema Objective Last Vital Signs Temp 36.9 C 04/18/22 09:05 Pulse 103 H 04/18/22 12:14 Resp 22 04/18/22 12:14 BP 143/62 H 04/18/22 12:00 Pulse Ox 87 L 04/18/22 12:00 Laboratory Results - last 24 hr 04/18/22 04/18/22 04/18/22 05:38 05:38 05:38 WBC 8.24 RBC 4.05 Hgb 11.8 Hct 37.5 MCV 93 MCH 29.1 MCHC 31.5 L RDW 13.6 Plt Count 269 MPV 9.2 Immature Gran % 1.1 Neutrophils % 75.3 Lymphocytes % 12.4 Monocytes % 10.4 Eosinophils % 0.7 Basophils % 0.1 Nucleated RBC % 0.0 Absolute Neutrophils 6.20 Absolute Lymphocytes 1.02 L Absolute Monocytes 0.86 H Absolute Eosinophils 0.06 Absolute Basophils 0.01 VBG pH VBG pCO2 VBG pO2 VBG HCO3 VBG Total CO2 VBG O2 Saturation VBG Base Excess Sodium 141 Potassium 4.3 Chloride 103 Carbon Dioxide 34.8 H Anion Gap 3.2 BUN 22 H Creatinine 1.3 H Est GFR (CKD-EPI 2020) 42.62 Glucose 106 Calcium 9.2 Total Bilirubin 0.3 AST 16 ALT 9 L Alkaline Phosphatase 70 Total Protein 6.0 L Albumin 2.5 L Procalcitonin 0.1 04/18/22 05:38 WBC RBC Hgb Hct MCV MCH MCHC RDW Plt Count MPV Immature Gran % Neutrophils % Lymphocytes % Monocytes % Eosinophils % Basophils % Nucleated RBC % Absolute Neutrophils Absolute Lymphocytes Absolute Monocytes Absolute Eosinophils Absolute Basophils VBG pH 7.51 H VBG pCO2 46 VBG pO2 114 VBG HCO3 36 H VBG Total CO2 VBG O2 Saturation > 99 VBG Base Excess 13 H Sodium Potassium Chloride Carbon Dioxide Anion Gap BUN Creatinine Est GFR (CKD-EPI 2020) Glucose Calcium Total Bilirubin AST ALT Alkaline Phosphatase Total Protein Albumin Procalcitonin
--- NOTE | 2022-04-18 13:00 | DI.RAD_ITS ---
Exam(s) XR PORTABLE CHEST AP EXAM: XR PORTABLE CHEST AP leads overlie the chest. CLINICAL HISTORY: follow up pneumonia TECHNIQUE: 2D digital imaging was performed. COMPARISON: CR XR PORTABLE CHEST AP from 01/21/2022 CR,XR XR PORTABLE CHEST AP from 02/12/2022 CR,XR XR PORTABLE CHEST AP from 04/11/2022 CR XR ABDOMEN FLAT PLATE from 04/13/2022 FINDINGS: Leads overlie the chest. Oxygen tubing somewhat obscures the right apex peer LUNGS: Hyperinflated. Emphysematous changes and scarring. Marked interval improvement in infiltrate s some residual infiltrate in the right lung base. HEART: Normal size. AORTA: Normal diameter. BONES: Unremarkable for age. Soft tissues: Unremarkable. IMPRESSION: Improvement of infiltrates. No new findings. DATA REPOSITORY: RADIATION DOSE DELIVERED:
[2022-04-18] MEDS: predniSONE 20 MG TAB PO (13:39)
[2022-04-18] MEDS: Protein Nutritional Supplement 16 GM 1 OUNCE PACKET PO ×2 (13:40→19:59)
--- NOTE | 2022-04-18 14:25 | DI.VRAD_ITS ---
PROCEDURE INFORMATION: Exam: XR Chest Exam date and time: 04/18/2022 1:34 PM Age: 76 years old Clinical indication: Other: F/u pna TECHNIQUE: Imaging protocol: Radiologic exam of the chest. 2image(s) are provided. Views: 1 view. COMPARISON: CR XR PORTABLE CHEST AP 04/11/2022 12:46 AM FINDINGS: Lungs: The lung volumes are slightly increased overall which may be effort related versus mild air trapping. There is subsegmental atelectasis versus post inflammatory scarring demonstrated.No interval lobar consolidation is appreciated. There is some patchy bandlike consolidative residual at the right lung base with otherwise improved central aeration. Pleural spaces: No pneumothorax or significant interval pleural effusion is appreciated. There does appear to be some residual costophrenic angle blunting right more so than left. Heart/Mediastinum: The cardiomediastinal silhouette is upper normal in size.This can be seen with central averaging as well as gary enlargement. Diaphragm: The hemidiaphragms are symmetric. Bones/joints: There is some chronic appearing decreased vertebral height at the mid to lower thoracic spine predominantly similar overall.Osseous alignment is maintained.No interval displaced fracture or dislocation is appreciated. Soft tissues: No radiopaque foreign body or subcutaneous emphysema is appreciated. Other findings: No other significant interval changes are appreciated. IMPRESSION: There is some residual inflammatory appearance at the right lung base with patchy overall density. This does appear decreased in the interval with improved central aeration otherwise. Dictated and Authenticated by: Thomas Scott MD. Ordering:[facility] Eric Choi MD
[2022-04-18] MEDS: Dronabinol 2.5 MG CAP PO (20:00)
[2022-04-18] MEDS: Amoxicillin 875/Clav. 125 TAB PO (20:01)
[2022-04-18] MEDS: Mirtazapine 15 MG TAB PO (23:28)
[2022-04-19] VITALS (34 sets, daily range): BP systolic 115–158; BP diastolic 50–78; PULSE 76–102; RESP 1–22; TEMP 34–36.9; O2SAT 83–96
[2022-04-19] MEDS: metroNIDAZOLE 500 MG/100 ML BAG 100 MG IVPB ×3 (02:19→18:15)
[2022-04-19] MEDS: Omeprazole 20 MG CAPCR 40 MG PO (06:42)
[2022-04-19] MEDS: Albuterol/Ipratropium 3 ML UPD VIAL UPD ×4 (07:52→19:44)
[2022-04-19] MEDS: Budesonide/Formoterol 80/4.5 6.9 GM 60 PUFF INH IH ×2 (07:53→19:43)
[2022-04-19] MEDS: Tiotropium Bromide-Respimat 10 PUFF INH 2 PUFF IH (07:54)
[2022-04-19] MEDS: Benzonatate 100 MG CAP PO ×3 (08:20→20:07)
[2022-04-19] MEDS: Salt Supplement (BUFFERED) TAB 1 TAB PO (08:20)
[2022-04-19] MEDS: Cholecalciferol (Vitamin D3) 1,000 UNIT TAB 3000 UNITS PO (08:21)
[2022-04-19] MEDS: Gabapentin 100 MG CAP PO ×3 (08:22→20:08)
[2022-04-19] MEDS: predniSONE 20 MG TAB 60 MG PO (08:22)
[2022-04-19] MEDS: guaiFENesin 600 MG TABCR PO ×2 (08:22→20:08)
[2022-04-19] MEDS: Sulfameth/Trimeth DS TAB 1 TAB PO (08:22)
[2022-04-19] MEDS: Amoxicillin 875/Clav. 125 TAB PO ×2 (08:23→20:07)
[2022-04-19] MEDS: clonazePAM 0.5 MG TAB PO ×3 (08:23→20:07)
[2022-04-19] MEDS: Sertraline 100 MG TAB PO (08:23)
[2022-04-19] MEDS: Roflumilast 500 MCG TAB PO (08:24)
[2022-04-19] MEDS: Dronabinol 2.5 MG CAP PO ×2 (08:24→15:57)
[2022-04-19] MEDS: Enoxaparin 30 MG/0.3 ML SYR SC (08:25)
[2022-04-19] MEDS: Protein Nutritional Supplement 16 GM 1 OUNCE PACKET PO ×3 (08:25→20:07)
[2022-04-19] MEDS: Diclofenac 1% Gel 100 GM TUBE TP ×4 (08:27→20:10)
--- NOTE | 2022-04-19 08:32 | PGE_ITS ---
Date of Service Date of service: 04/19/22 Time of Service: 08:32 Assessment and Plan Assessment and plan (1) Acute on chronic respiratory failure with hypoxia and hypercapnia: Status: Acute Assessment and plan: secondary to influenza in setting of end stage COPD w/ superimposed CAP. Patient completed 5 days of Zosyn (04/11 to 04/15) and had 2 complete days of Augmentin (04/15 to 04/17) however, I resumed it on 04/18/22 as she had some residual infiltrate at her RLL although improved. I will continue for total of 5 days Augmentin thus finishing 10 day course. . Her inflammatory markers have improved w/ normal WBC and procalcitonin down to 0.1 and she has finished her Tamiflu as of 04/15.. She is now on prednisone along w/ her LABA and LAMA but still required HFNC and BIPAP. She would benefit from Trilogy device. CXR has shown improvement. Professional time spent interviewing and examining patient, discussion of goals of care with hospital team (care management, nursing and consulting professionals) was 30 minutes. (2) Influenza A: Status: Acute Assessment and plan: completed her Tamiflu (3) Secondary bacterial pneumonia: Status: Acute Assessment and plan: completed one week of Zosyn, and 2 days of Augmetin. normal WBC and procalcitonin. Augmentin resumed last night. Will continue through 04/21. (4) COPD exacerbation: Status: Acute Assessment and plan: as above. continue prednisone high dose for total of 5 days (put her on TMP/SMX while on high dose prednisone. If this helps w/ her COPD then do steroid taper. continue LABA/ICS and LAMA. Would benefit from Trilogy (5) C. difficile colitis: Status: Acute Assessment and plan: stools improving. continue Flagyl and oral Vancomycin and probiotics (6) Chronic pain: Status: Chronic Assessment and plan: Buprenorphine patch 7.5 mcg/hr patch, voltaren gel. Continue muscle relaxants, heat. (7) Protein calorie malnutrition: Status: Acute Assessment and plan: patient is on MVS w/ zinc and copper. add protein liquid supplements. consult nutrition services. add Marinol to stimulate her appetite. (8) Depression: Status: Chronic Assessment and plan: add Remeron at night (9) DVT prophylaxis: Status: Acute Assessment and plan: SC enoxaparin (10) Discharge planning issues: Status: Acute Assessment and plan: DNR/DNI will transfer to med/surg status Subjective Subjective Interval history since last seen: Laney states she is feeling better today her appetite started to improve. Stools are now formed. Oxygen level is staying up when she eats. Still requiring high flow nasal cannula but her saturations 94 to 95%. Still requires BiPAP at night. Her inflammatory markers have been coming down. I did resume her Augmentin last night for couple more days because of residual infiltrate in the right lung base but there is been marked improvement on her chest x-ray. At this point I think she can be downgraded to medical/surgical floor status and we can discontinue telemetry but continue use of BiPAP at night and high flow nasal cannula during the day but if she tires out during the day she will go back on the BiPAP. I talked to respiratory therapy but starting the paperwork for qualifying her for trilogy device but will defer final decision making on that to the turret punch operator. Exam Narrative Exam Narrative: Laney sitting up in her chair she is alert and oriented person place time circumstances she has her glasses on she is watching TV she just finished breakfast is taking her morning meds. Lungs diffusely diminished breath sounds but much improved airflow particular at the lung bases. Just some faint rales at the right lung base Heart is regular rate and rhythm Abdomen soft nondistended normal bowel sounds nontender Extremities without peripheral cyanosis or edema Neuro exam grossly intact no focal motor or sensory deficits no focal cranial nerve deficits. Objective Last Vital Signs Temp 36.8 C 04/19/22 03:28 Pulse 76 04/19/22 06:01 Resp 14 04/19/22 06:01 BP 116/50 L 04/19/22 06:01 Pulse Ox 95 04/19/22 06:01
[2022-04-19] MEDS: Cholestyramine/Aspartame PKT 1 EACH PO ×2 (10:45→18:15)
--- NOTE | 2022-04-19 11:30 | PT.INTREAT ---
PT Notes Visit Reasons: Flu, Pneumonia, COPD Inpatient Physical Therapy Treatment Note [facility] Date: 04/19/22 PRECAUTIONS:Flu/ C-Diff OBJECTIVE: [] Supine-sit: SBA Sit-supine: SBA Sit-stand: SBA Stand-sit: SBA GAIT Assistive Device: FWW Weight bearing: Full Assist: SBA Distance: Marching in place to F VITALS: Oxygen ranges from 76-86% during session. THEREX: Heel slides x 10, ankle pumps x 10, shoulder flexion x 10, bicep curls x 10, horz abd x 10 ASSESSMENT: Pt tolerated today's session well. She did require frequent rest periods due to SOB. PLAN: Cont as per PT POC. TREATMENT CODE/TIME: 11-11:30 (30) NAMAN TERRY
--- NOTE | 2022-04-19 17:00 | NUR.NOTE ---
Nursing Note: 208/Stuepfert: Pt expressed concerns re inability to get a hospital bed at home. Advised that she would have to pay out of pocket 2/2 physician providing incomplete paperwork (?). Son also stated similar issue w/ home CPAP. Please investigate.
[2022-04-19] MEDS: Normal Saline 500 ML 30 ML IV (18:14)
[2022-04-19] MEDS: Mirtazapine 15 MG TAB PO (22:25)
[2022-04-20] VITALS (22 sets, daily range): BP systolic 122–148; BP diastolic 64–81; PULSE 75–111; RESP 7–22; TEMP 34–37.1; O2SAT 84–93
[2022-04-20] MEDS: metroNIDAZOLE 500 MG/100 ML BAG 100 MG IVPB ×3 (02:00→18:09)
[2022-04-20 06:41] LABS: BE (Venous) 12 mmol/L (-2-3); HCO3 (Venous) 37 mmol/L (23-28); O2 Sat (Venous) 39 %; TCO2 (Venous) 34 mmol/L (24-29); pH (Venous) 7.37 (7.31-7.41); pO2 (Venous) 24 mmHg
[2022-04-20 06:44] LABS: Abs Immature Grans 0.04 10^3/uL (0.0-0.06); Absolute Basophil Count 0.01 10^3/uL (0.0-0.2); Absolute Eosinophil Count 0.01 10^3/uL (0.0-0.7); Absolute Lymphocyte Count 0.95 10^3/uL (1.2-3.4); Absolute Monocyte Count 0.64 10^3/uL (0.1-0.8); Absolute Neutrophil Count 4.89 10^3/uL (1.2-6.7); Basophils % 0.2; Eosinophils % 0.2; HCT 43.6 % (36.0-46.0); HGB 13.6 g/dL (11.2-15.7); Immature Grans % 0.6; Lymphocytes % 14.5; MCHC 31.2 % (32.0-36.0); MCV 93 fL (80-95); MPV 8.8 fL (8.0-11.0); Monocytes % 9.8; Neutrophils % 74.7; Platelet Count 281 10^3/uL (130-400); RBC 4.69 10^6/uL (3.93-5.22); RDW 13.9 % (11.7-14.6); RDW-SD 46.8 fL; WBC 6.54 10^3/uL (4.4-10.8); pCO2 (Venous) 65 mmHg (41-51)
[2022-04-20 07:10] LABS: BUN 37 mg/dL (7-18); C-Reactive Protein 0.22 mg/dL (0.0-0.3); CREATININE 1.3 mg/dL (0.55-1.02); Calcium 9.8 mg/dL (8.5-10.1); Chloride 103 mmol/L (98-107); Estimated GFR 42.62 (mL/min/1.73m2); Glucose 107 mg/dL (74-106); Potassium 3.7 mmol/L (3.5-5.1); Sodium 142 mmol/L (136-145)
[2022-04-20 07:45] LABS: Procalcitonin < 0.1 ng/mL
[2022-04-20] MEDS: Albuterol/Ipratropium 3 ML UPD VIAL UPD ×4 (07:54→19:45)
[2022-04-20] MEDS: Budesonide/Formoterol 80/4.5 6.9 GM 60 PUFF INH IH ×2 (07:54→19:44)
[2022-04-20] MEDS: Tiotropium Bromide-Respimat 10 PUFF INH 2 PUFF IH (07:54)
[2022-04-20] MEDS: Enoxaparin 30 MG/0.3 ML SYR SC (08:19)
[2022-04-20] MEDS: Psyllium PKT 1 EACH PO (08:19)
[2022-04-20] MEDS: Cholecalciferol (Vitamin D3) 1,000 UNIT TAB 3000 UNITS PO (08:20)
[2022-04-20] MEDS: predniSONE 20 MG TAB 60 MG PO (08:20)
[2022-04-20] MEDS: Protein Nutritional Supplement 16 GM 1 OUNCE PACKET PO ×2 (08:20→14:18)
[2022-04-20] MEDS: guaiFENesin 600 MG TABCR PO ×2 (08:20→21:44)
[2022-04-20] MEDS: Benzonatate 100 MG CAP PO ×3 (08:21→21:44)
[2022-04-20] MEDS: Roflumilast 500 MCG TAB PO (08:21)
[2022-04-20] MEDS: Amoxicillin 875/Clav. 125 TAB PO (08:21)
[2022-04-20] MEDS: Gabapentin 100 MG CAP PO ×3 (08:21→21:44)
[2022-04-20] MEDS: Omeprazole 20 MG CAPCR 40 MG PO (08:22)
[2022-04-20] MEDS: Sulfameth/Trimeth DS TAB 1 TAB PO (08:22)
[2022-04-20] MEDS: clonazePAM 0.5 MG TAB PO ×3 (08:22→21:43)
[2022-04-20] MEDS: Salt Supplement (BUFFERED) TAB 1 TAB PO ×2 (08:23→21:49)
[2022-04-20] MEDS: Diclofenac 1% Gel 100 GM TUBE TP ×4 (08:23→21:48)
[2022-04-20] MEDS: Sertraline 100 MG TAB PO (08:23)
--- NOTE | 2022-04-20 09:19 | PDOC.CMPRO ---
- If Service Date Differs Date of service: 04/20/22 Time of Service: 09:19 Care Management Progress Note S/O: Laney was sitting up in bed when CM met with her. When asked how she is doing she responded Well, I am still alive. Laney informed CM that several staff members have asked her about last night. Her understanding is that for about 45 minutes she could not be awakened. She seemed to think an error had been made and her oxygen flow was too high. Laney appears to be slowly improving. She does admit that she may be feeling a little better but is still very tired. Laney raised the possibility of going to rehab today with CM. She is also interested in a hospital bed for when she does go home. CM sent a referral to the [facility] at Laney's request and has started the paperwork process for approval for a hospital bed. A: Laney is a 76 year old woman admitted on 04/11/22 with Influenza, COPD and pneumonia P:Anticipate Laney will be discharged home with a resumption of home health services when medically cleared. It is possible that she may go to a SNF for rehab prior to returning home if her oxygen requirements allow for that to happen. If her condition does not improve or deteriorates, it is possible she may go home on hospice. Laney will follow up with Pulmonology, her PCP and plan of care. CM will continue to support Laney and assess for discharge needs.
--- NOTE | 2022-04-20 10:18 | INPN_ITS ---
Date of service: 04/20/22 Time of Service: 10:48 PT Notes Visit Reasons: Flu, Pneumonia, COPD Inpatient Physical Therapy Progress Note Date: 04/20/2021 Dates of Service: 04/12/2022 through 04/20/2021 Referring Doctor: Dr. Marti Carmona PT Orders: PT CONSULT: Limited ability - Eval and Treat Precautions: Droplet precautions, fall, limited ability Patient Profile/Admitting Diagnosis: This is a 76-year-old female with a past medical history of being a palliative care patient who is DNR/DNI, longstanding COPD, fibromyalgia, GERD, multiple admissions for her COPD exacerbations, who presents to ED 04/11/22? for evaluation of increased respiratory effort.? She is on a baseline of 2 L of home oxygen, but over the last 24 hours has been increased to 4 L.? Family states that she has been complaining of some shoulder pain chronically over the last few weeks and has had a notable decline in her respiratory status over the last 2 days.? This evening things continue to worsen, EMS was called and she was brought to the ER for further evaluation.? PMHX: PFSH All Active Problems? COPD exacerbation (Acute) Hypercarbia (Acute) Hospital acquired PNA (Acute) Advanced care planning/counseling discussion (Acute) Palliative care patient (Acute) Hypoxemia (Acute) Hospital-acquired bacterial pneumonia (Acute) Hyponatremia (Chronic) Epigastric pain (Acute) Discharge planning issues (Acute) DVT prophylaxis (Acute) COPD with acute exacerbation (Acute) Acute bronchitis (Acute) Odynophagia (Acute) Dysphagia (Acute) GERD (gastroesophageal reflux disease) (Chronic) Chronic obstructive pulmonary disease (Chronic) Chronic pain syndrome (Chronic 12/15/16) CONTROLLED SUBSTANCE AGREEMENT 10/03/18 Lumbosacral spondylosis without myelopathy (Acute) Fibromyalgia (Acute) Fall (Acute) Low back pain (Acute) Fever (Acute) Discharge planning issues (Acute) Acute exacerbation of chronic obstructive pulmonary disease (COPD) (Acute) T12 compression fracture (Acute) Ongoing leg pain (Acute) continue nsaid prn tramadol see surgeon next week consider topical analgesic on surrounding skin Hemoptysis (Acute) History of cataract removal with insertion of prosthetic lens (Acute 06/05/15) History of chest tube placement (Acute) Status post appendectomy (Acute) Status post laminectomy (Acute) Pain from implanted hardware (Chronic 10/30/18) S/P Hardware removal Bacterial pneumonia (Acute 11/23/13) Chronic anxiety (Chronic 06/22/13) Chronic emphysema syndrome (Chronic) Chronic pain in right shoulder (Chronic 11/20/13) Moderate protein malnutrition (Chronic 11/20/13) Contusion of right knee, initial encounter (Acute) Neck pain (Acute) Irritable bowel syndrome with diarrhea (Chronic) Cervical neck pain with evidence of disc disease (Chronic 06/22/13) History of tobacco abuse (Chronic) Anxiety (Chronic) LLL pneumonia (Acute ~03/30/18) Medical History? DNI (do not intubate) DNR (do not resuscitate) POLST (Physician Orders for Life-Sustaining Treatment) Surgical History? Appendectomy CHEST TUBE Extraction of cataract 06/05/15; LEFT EYE; DR. ARAUZ H/O section Hx of hysterectomy LAMINECTOMY CERVICAL SPINE Social History/Home Situation: Patient lives in [id number] apartment with her daughter and grandchildren.? 5 steps with railing upon entry.? No longer driving.? Patient states she is independent in her own home. Current Functional Limitations: Community ambulation Equipment Owned/DME: ? four-wheeled walker Subjective:? Hoping that she could go back to sleep after nursing just transferred patient back to bed. Agreeable to doing bed level exercises for now. Okay with doing a short walk this afternoon. Per Nurse Thomas, patient needed closer monitoring last night to ensure that patient's oxygen saturation is within allowable limits. RT Mirza states that as long as patient's level stays between the high 70s to high 80's, there is no need to increase patient's HF machine during exercise. She adds that saturation levels should not exceed 92% on HF as patient to minimize risk for hypercapnia. Objective:?? General Observation: Patient laying in bed with head of bed at 30 degrees.? Very pleasant.? On telemetry, IV port in right forearm and supplemental oxygen 50L/min with FiO2 at 33% Mental Status: Alert and oriented as tp person and purpose Pain: Denies Vital Signs: 82-87% O2 saturation on 50 L O2/min throughout session ROM: Right Upper Extremity: Glenohumeral joint flexion 125 degrees active assisted 135 with pain at endrange, abduction 110 degrees actively, elbow flexion and extension within normal limits.? Able to make fist approximating fingertips to palmar crease. Left Upper Extremity: Glenohumeral joint flexion 120 degrees active 125 active assisted with pain at endrange, abduction 100 degrees actively, elbow flexion and extension within normal limits.? Approximate fingertips to palmar crease. Right Lower Extremity: Hip flexion and abduction actively within functional limits.? Knee flexion 105 degrees with pain, extension lacks 5 degrees.? Ankle range of motion within functional limits Left Lower Extremity: Hip flexion and abduction within functional limits actively.? Knee flexion 120 minimal pain, extension 0.? Ankle range of motion within functional limits. Strength: Right Upper Extremity: Glenohumeral joint flexion and abduction 3/5 with pain, tricep 4/5, bicep 4/5, good pulpit operator Left Upper Extremity: Glenohumeral joint flexion 3+/5, abduction 3/5 with pain, tricep 4/5, bicep 4/5, good pulpit operator Right Lower Extremity: Patient perform straight leg raises 10 degree lag.? Hip flexion 4-/5, quad 4 -/5, hamstring 3+/5, ankle inversion, eversion, plantarflexion and dorsiflexion 4-/5 Left Lower Extremity: Patient form straight leg raise with 0 degree lag.? Hip flexion 4-/5, quad 4 -/5, hamstrings 4 -/5, ankle inversion, eversion, plantarflexion and dorsiflexion 4-/5 Sensation:? Reported mildly decreased sensation light touch bilateral hands. Bed Mobility/Transfers: Bed?sit:?stand by assist Bed?stand:?stand by assist Stand?sit:? stand by assist Gait:? Per JOSE Quinn, patient just transferred back to bed using FWW with contact guard assist. Will attempt short distance ambulation later this afternoon THERA EX: Ankle DF/PF x10 Heel slides x10 Patient pulling on PT's static hand with HOB at 45 degrees x 10 Chest expansion exercises with DBE x 5 Balance:? Static Sitting:Good Dynamic Sitting: Good Static Standing: Fair Dynamic Standing: Fair Special Tests: Mobility Limitations Standardized Measure [facility] 6 clicks Basic Mobility Inpatient Short Form: Raw Score: ? 18? Standardized Score: ? CMS Score:? 47% Informed Consent/Education:? Informed Consent/Education: Patient was instructed in purpose of PT consult and plan of care. Agreeable to proceed with established PT POC to achieve personal goals. Assessment:?? Patient continues to require high flow oxygen supplementation at 50L min with FiO2 of 33% with oxygen saturation levels ranging from 82% to 87%. Patient is a 76-year-old female referred to physical therapy services with the diagnosis of acute COPD exacerbation.? Patient presents with clinical signs and symptoms consistent with above diagnosis, as demonstrated by the following impairment level findings: 1. Mobility and strength deficits 2. Lower extremity weakness and 3. Fair balance with dynamic activities 4. Requires HF oxygen supplementation Impairments are contributing to the following functional limitations: AMPAC score 47%. 1. Decline in bed mobility skills 2. Decline in transfer skills 3. Inability to safely ambulate 4. Increased completion time for mobility ADL performance 5. Increased risk for falls 6. Difficulty with managing steps alone safely Patient is assessed as a moderate complexity based on the following 13736 History: See multiple comorbidities listed above Examination: See assessment and objective findings Presentation: Evolving Decision Making: Moderate, AMPAC ? disability 47% ? Goals: Goals X1 week 1. Supine-Sit: Independent NOT MET, CONTINUE 2. Sit-Supine: Independent NOT MET, CONTINUE 3. Sit-Stand: Independent NOT MET, CONTINUE 4. Stand-Sit : Independent NOT MET, CONTINUE 5. Bed-Chair: Independent NOT MET, CONTINUE 6. Chair-Bed: Independent NOT MET, CONTINUE 7. Gait: Patient ambulates 100 feet with use of front wheel walker with SBA NOT MET, CONTINUE 8. Stairs: Independent with performing 5 stairs with railing with standby assist? NOT MET, CONTINUE ? Plan of Care/Treatment Plan: Limit short duration PT sessions BID M-F for 2 weeks. Short distance ambulation in the morning and then exercise in the afternoon to minimize fatigue. ? DISCHARGE RECOMMENDATIONS:? [] ? Home with no services [][] []? ? Home with services [] [] ? Home with outpatient PT [] [] ? SNF for continued rehabilitation [] [] ? Senior Care Care [] [] ? SNF versus LTC based on ability to participate and progress [] [X] SNF vs HH PT dependening on ability to progress towards goals TREATMENT CODE/TIME:? 39905 x 25 minutes beginning at 10:18 AM. Thank you for the opportunity to participate in the care of this patient. Teresita Lopez PT, DPT, CLT [facility] [place], [place]
[2022-04-20] MEDS: Dronabinol 2.5 MG CAP PO ×2 (11:10→16:16)
[2022-04-20] MEDS: Cholestyramine/Aspartame PKT 1 EACH PO ×2 (11:11→18:10)
--- NOTE | 2022-04-20 14:55 | PGE_ITS ---
Date of Service Date of service: 04/20/22 Time of Service: 14:55 Assessment and Plan Assessment and plan (1) Acute on chronic respiratory failure with hypoxia and hypercapnia: Status: Acute Assessment and plan: secondary to influenza in setting of end stage COPD w/ superimposed CAP. Patient completed 5 days of Zosyn (04/11 to 04/15) and had 2 complete days of Augmentin (04/15 to 04/17). Augment was resumed it on 04/18/22 as she had some residual infiltrate at her RLL although improved. Given ongoing diarrhea, will d/c the Augmentin. Her inflammatory markers have improved w/ normal WBC and procalcitonin down to 0.1 and she has finished her Tamiflu as of 04/15.. She is now on prednisone along w/ her LABA and LAMA but still required HFNC and BIPAP. She would benefit from Trilogy device; Pulmonary medicine consulted. CXR has shown improvement. . (2) Influenza A: Status: Acute Assessment and plan: completed her Tamiflu (3) Secondary bacterial pneumonia: Status: Acute Assessment and plan: completed one week of Zosyn, and 2 days of Augmetin. normal WBC and procalcitonin. Augmentin resumed last night. Will continue through 04/21. (4) COPD exacerbation: Status: Acute Assessment and plan: as above. continue prednisone high dose for total of 5 days (put her on TMP/SMX while on high dose prednisone. If this helps w/ her COPD then do steroid taper. continue LABA/ICS and LAMA. Would benefit from Trilogy (5) C. difficile colitis: Status: Acute Assessment and plan: She had 4 loose stools from midnight to 6AM; continue Flagyl and oral Vancomycin and probiotics PRN lomotil. Added BAnatrol TID. (6) Chronic pain: Status: Chronic Assessment and plan: Buprenorphine patch 7.5 mcg/hr patch, voltaren gel. Continue muscle relaxants, heat. (7) Protein calorie malnutrition: Status: Acute Assessment and plan: patient is on MVI w/ zinc and copper. On protein liquid supplements. consult nutrition services. Marinol to stimulate her appetite appears to be helpful. (8) Depression: Status: Chronic Assessment and plan: Continue Remeron at night (9) DVT prophylaxis: Status: Acute Assessment and plan: SC enoxaparin (10) Discharge planning issues: Status: Acute Assessment and plan: DNR/DNI Subjective Subjective Patient reports: no new complaints, tolerating a regular diet, diarrhea, shortne ss of breath and afebrile; denies nausea or vomiting Exam Narrative Exam Narrative: Laney sitting up in bed. Pleasant and cooperative. Lungs: Diminished breath sounds. Soft basilar rales. Heart is regular rate and rhythm Abdomen soft nondistended normal bowel sounds nontender Extremities without peripheral cyanosis or edema Neuro exam grossly intact no focal motor or sensory deficits. A&O x 3. Objective Last Vital Signs Temp 36.9 C 04/20/22 11:41 Pulse 101 H 04/20/22 11:41 Resp 20 04/20/22 11:41 BP 126/64 04/20/22 11:41 Pulse Ox 88 L 04/20/22 11:41 Laboratory Results - last 24 hr 04/20/22 04/20/22 04/20/22 06:30 06:30 06:30 WBC 6.54 RBC 4.69 Hgb 13.6 Hct 43.6 MCV 93 MCH 29.0 MCHC 31.2 L RDW 13.9 Plt Count 281 MPV 8.8 Immature Gran % 0.6 Neutrophils % 74.7 Lymphocytes % 14.5 Monocytes % 9.8 Eosinophils % 0.2 Basophils % 0.2 Nucleated RBC % 0.0 Absolute Neutrophils 4.89 Absolute Lymphocytes 0.95 L Absolute Monocytes 0.64 Absolute Eosinophils 0.01 Absolute Basophils 0.01 VBG pH VBG pCO2 VBG pO2 VBG HCO3 VBG Total CO2 VBG O2 Saturation VBG Base Excess Sodium 142 Potassium 3.7 Chloride 103 Carbon Dioxide 36.0 H Anion Gap 3.0 BUN 37 H Creatinine 1.3 H Est GFR (CKD-EPI 2020) 42.62 Glucose 107 H Calcium 9.8 C-Reactive Protein 0.22 Procalcitonin < 0.1 04/20/22 06:30 WBC RBC Hgb Hct MCV MCH MCHC RDW Plt Count MPV Immature Gran % Neutrophils % Lymphocytes % Monocytes % Eosinophils % Basophils % Nucleated RBC % Absolute Neutrophils Absolute Lymphocytes Absolute Monocytes Absolute Eosinophils Absolute Basophils VBG pH 7.37 VBG pCO2 65 H* VBG pO2 24 VBG HCO3 37 H VBG Total CO2 34 H VBG O2 Saturation 39 VBG Base Excess 12 H Sodium Potassium Chloride Carbon Dioxide Anion Gap BUN Creatinine Est GFR (CKD-EPI 2020) Glucose Calcium C-Reactive Protein Procalcitonin Time Spent with Patient Time Spent with Patient: 25-34 minutes Time was spent: preparing to see the patient(eg.review tests), obtaining and/or reviewing separately otained hiistory, ordering medications,tests, procedures, indepentently interpreting results and care coordination
--- NOTE | 2022-04-20 15:06 | PTTR_ITS ---
Date of service: 04/20/22 Time of Service: 15:06 PT Notes Visit Reasons: Flu, Pneumonia, COPD Inpatient Physical Therapy Treatment Note Date: 04/20/2021 Precautions: Enteric and droplet precautions. Fall. On HF via NC. Subjective:? Agreeable to session. Objective:?? General Observation: Patient laying in bed with head of bed at 30 degrees.? Very pleasant.? On telemetry, IV port in right forearm and supplemental oxygen 50L/min with FiO2 at 33% Mental Status: Alert and oriented as tp person and purpose Pain: Denies Vital Signs: 82%-89% O2 saturation on 40 L O2/min throughout session with FiO2 at 32% Bed Mobility/Transfers: Bed?sit:?stand by assist Bed?stand:?stand by assist Stand?sit:? stand by assist Gait:? 8 feet from bedside to commode placed against wall with 3-minute seated rest + 10 feet from commode to wall across with 5-minute seated rest + 8 feet from chair back to the bed using the front-wheeled walker with saturation low of 82% and high of 89% on 40L of oxygen per minute with FiO2 of 32%, stand by assist only. Denies pain, fatigue, and shortness of breath. Balance:? Static Sitting:Good Dynamic Sitting: Good Static Standing: Fair Dynamic Standing: Fair Assessment:?? Patient continues to require high flow oxygen supplementation at 40L min with FiO2 of 32% with oxygen saturation levels ranging from 82% to 89% with report of no fatigue nor dizziness. Plan of Care/Treatment Plan: Limit to short duration PT sessions BID M-F for 2 weeks.? Short distance ambulation in the morning and then exercise in the afternoon (or vice versa) to minimize fatigue. ? DISCHARGE RECOMMENDATIONS:? [] ? Home with no services [][] []?Home with services [] [] ? Home with outpatient PT [] [] ? SNF for continued rehabilitation [] [] ? User Support Analyst Supervisor Care [] [] ? SNF versus LTC based on ability to participate and progress [] [X]? SNF vs HH PT depending on ability of patient to progress towards goals TREATMENT CODE/TIME:? 39169 x 39 minutes beginning at 15:06 PM.
--- NOTE | 2022-04-20 16:20 | CHAPLAIN ---
Laney was finishing a respiratory treatment when I visited this afternoon. She told me that her oxygen level got to 98 last night, and when someone checked her after about 40 minutes, they had trouble rousing her. Laney said she could hear the nurse talking with her but wasn't able to respond. She said she eventually came around fine. Laney said she trusts the staff, but she was scared and tired. (I don't know what affect the 02 level of 98 would have on Laney.) She talked about missing her grandkids at home, and then missing her. Laney lives with her son and daughter in law, and their four kids who are home schooled, so they are around a lot.
--- NOTE | 2022-04-20 16:37 | W.PALPGNOTE ---
Date of service: 04/20/22 Time of Service: 13:30 Assessment and Plan Assessment and plan (1) Palliative care patient: Status: Acute Assessment and plan: Patient appears to be slightly better, able to eat and seeming interested in life around her. Unfortunately continues to need high flow oxygen which will definitely impede her ability to go home. Her mood seems better and she is not commented on dying since before the weekend. She is still extremely high risk given her severe underlying lung disease. She still has the option of going home on hospice. I will revisit this with her on my next visit with her in a few days. For now, she seems to be making great effort to eat better, participate in physical therapy in hopes of going home as soon as possible (2) Influenza A: Status: Acute Assessment and plan: Tamiflu completed. (3) Secondary bacterial pneumonia: Status: Acute Assessment and plan: Antibiotics completed. (4) Acute on chronic respiratory failure with hypoxia and hypercapnia: Status: Acute Assessment and plan: Very slow improvement. We are hoping that she is able to wean off of high flow oxygen in the next few days. Encouraged to be as mobile as possible. Flutter valve encouraged by hospitalist. In the meantime in case she is not able to be weaned off, they are looking to get approval for trilogy machine (5) C. difficile colitis: Status: Acute Assessment and plan: Again, slow improvement. Hopefully completion of respiratory infection antibiotics will help this. She continues on vancomycin orally. She was trying banana flakes today to see if this would help. (6) TERESA (acute kidney injury): Status: Acute Assessment and plan: Continues to resolve, creatinine down to 1.3. Baseline is 0.84 creatinine Subjective Subjective Interval history since last seen: Ms. Stephens is a 76-year-old female with severe COPD previously on home oxygen and history of chronic neck and back pain who is now on day 4 of hospital admission for pulmonary infection (influenza A with secondary right middle lobe pneumonia) and respiratory failure with hypercapnia (requiring high flow oxygen and BiPAP). Hospitalization has been complicated by TERESA (definitely resolving) and C. difficile ( improving) Clinical update: -Patient still requiring high flow O2 and using BiPAP at night. -Episode last night where peripheral transcutaneous O2 sat went up to 99% and she became confused, likely retaining CO2 again. -Patient transferred out of ICU this morning and into a [facility] bed. -her appetite is improving. She reports she is on a regular diet and eating about half of each tray. -Continues to have her usual intermittent low back and upper back and shoulder and neck pain. Has not noted significant improvement with the increase Butrans 7.5 mg patch when specifically asked, but overall seems more comfortable and is spending more time in an upright position when I see her. -Using clonazepam 3 times daily as needed. Reports that she usually takes it at night. -Staff reports that she continues to have diarrhea a few times a day. -Official repeat x-ray report from the last 2 days shows improvement of the pneumonia and all of her bacterial antibiotics for respiratory infection have been stopped. She continues on antibiotics for the C. difficile. -Hospitalist and cell inspector have started looking into possible use of Trilogy Machine when she returns home, request process has begun. Patient reports that she is doing okay. She has not mentioned to staff that she feels like she is dying for at least 2 days. She is hoping she will be well enough to go home at some point. Exam Const Other: She sitting on the edge of her bed today looking quite comfortable. A mostly empty food tray of pork and mashed potatoes sitting on her table. She is smiling and talking in complete sentences without of breath. She is able to lay down without assistance to sit up without assistance. Her color looks better. She continues to be on high flow oxygen. Objective Last Vital Signs Temp 37.1 C 04/20/22 15:53 Pulse 94 H 04/20/22 16:01 Resp 21 04/20/22 15:53 BP 134/73 04/20/22 15:53 Pulse Ox 84 L 04/20/22 16:01 Laboratory Results - last 24 hr 04/20/22 04/20/22 04/20/22 06:30 06:30 06:30 WBC 6.54 RBC 4.69 Hgb 13.6 Hct 43.6 MCV 93 MCH 29.0 MCHC 31.2 L RDW 13.9 Plt Count 281 MPV 8.8 Immature Gran % 0.6 Neutrophils % 74.7 Lymphocytes % 14.5 Monocytes % 9.8 Eosinophils % 0.2 Basophils % 0.2 Nucleated RBC % 0.0 Absolute Neutrophils 4.89 Absolute Lymphocytes 0.95 L Absolute Monocytes 0.64 Absolute Eosinophils 0.01 Absolute Basophils 0.01 VBG pH VBG pCO2 VBG pO2 VBG HCO3 VBG Total CO2 VBG O2 Saturation VBG Base Excess Sodium 142 Potassium 3.7 Chloride 103 Carbon Dioxide 36.0 H Anion Gap 3.0 BUN 37 H Creatinine 1.3 H Est GFR (CKD-EPI 2020) 42.62 Glucose 107 H Calcium 9.8 C-Reactive Protein 0.22 Procalcitonin < 0.1 04/20/22 06:30 WBC RBC Hgb Hct MCV MCH MCHC RDW Plt Count MPV Immature Gran % Neutrophils % Lymphocytes % Monocytes % Eosinophils % Basophils % Nucleated RBC % Absolute Neutrophils Absolute Lymphocytes Absolute Monocytes Absolute Eosinophils Absolute Basophils VBG pH 7.37 VBG pCO2 65 H* VBG pO2 24 VBG HCO3 37 H VBG Total CO2 34 H VBG O2 Saturation 39 VBG Base Excess 12 H Sodium Potassium Chloride Carbon Dioxide Anion Gap BUN Creatinine Est GFR (CKD-EPI 2020) Glucose Calcium C-Reactive Protein Procalcitonin
[2022-04-20] MEDS: Normal Saline 500 ML 30 ML IV (18:09)
[2022-04-20] MEDS: Normal Saline Flush 10 ML SYR IVP (21:54)
[2022-04-20] MEDS: Albuterol 2.5 MG/3 ML INH SOLN VIAL UPD (21:55)
[2022-04-21] VITALS (18 sets, daily range): BP systolic 110–157; BP diastolic 65–80; PULSE 73–106; RESP 1–21; TEMP 34–37.2; O2SAT 70–95
[2022-04-21] MEDS: metroNIDAZOLE 500 MG/100 ML BAG 100 MG IVPB ×2 (03:14→10:21)
[2022-04-21] MEDS: Omeprazole 20 MG CAPCR 40 MG PO (06:43)
--- NOTE | 2022-04-21 06:59 | W.PULMCON ---
General Date Of Service Date of service: 04/21/22 Time of Service: 06:59 Reason for Consult: Need for Trilogy? COPD Assessment and Plan Assessment and plan (1) Acute on chronic respiratory failure with hypoxia and hypercapnia: Status: Acute (2) Influenza A: Status: Acute (3) Secondary bacterial pneumonia: Status: Acute (4) COPD exacerbation: Status: Acute Assessment and plan: This is a 76 yo woman admitted for a COPD exacerbation due to influenza and a bacterial pneumonia requiring nocturnal BiPAP and HFNC. She does seem to be a chronic retainer so agree she should be assessed for nocturnal NIV. I do not beleive she requires AVAPS ventilation/advanced ventilation at this time and do think that nocturnal BiPAP should be sufficient as her VBG obtained yesterday found a compensated respiratory acidosis with use of BiPAP alone. In order to qualify her for nocturnal BiPAP we will get an am ABG today and will get an overnight oximetry tonight while just on 2LPM supplemental O2. If her ABG finds a PaCO2 >52mmHg and her overnight oximetry finds >5min cumulatively of saturations under 88% while on her home 2LPM O2 she will qualify for nocturnal BiPAP. Acute on chronic hypoxic and hypercapnic respiratory failure - ABG this morning on 2LPM - overnight oximetry tonight on 2LPM nasal cannula - please keep off HFNC and BiPAP overnight unless SpO2 is consistently below 80% for >3min continuously - after these results will assess qualification for BiPAP COPD Exacerbation - taper prednisone: start 50mg today for 3 days, then: 40mg for 3 days, 30mg for 3 days, 30mg for 3 days, 20mg for 3 days, 10mg for 3 days, 5mg for 3 days - Bactrim can be discontinued for ppx once prednisone dose is below 20mg - upon discharge please restart Trelegy 100 and stop Spiriva and Symbicort - please ensure patient has a nebulizer and Duonebs on discharge - increase PO NAC from 600mg daily to 600mg bid - I will arrange follow up care with me History of Present Illness Narrative: This is a 76 yo admitted on 04/11/22 for a COPD exacerbation due to influenza and a bacterial pneumonia. She required BiPAP and HFNC therapy to support her respiratory status. She is on home O2 (2-3LPM). She was managed with steroids, nebulizer therapy, antibiotics and supportive care and did make improvements. The hospitalist team is concerned that she may require more advanced ventilatory therapy such as AVAPS. She was on HFNC as recently as yesterday and remains on BiPAP at night. She had a VBG completed 04/20/22 which did show a PvCO2 of 65 with a compensated pH. Historically her bicarb has been elevated and dating as far back as 2018 she has had CO2 retention. She is not obese and there is not a high suspicion for ALY. She has also had an TERESA, which has been slowly improving. She was also found to have C. Diff and is being treated for this. From a COPD perspective she is maintained on Trelegy 100, Dailyresp, and NAC PO. In the hospital she is currently receiving her Dailyresp, she is getting Symbicort and Spiriva in place of trelegy due to formulary, nebs, Flagyl, PO vancomycin, bactrim, 60mg prednisone. She is doing well today and feels as though her lungs have been improving. She has a 50 pack year history and quit in 2014. She has never taken part in LDCT lung cancer screening. Review of Systems All systems reviewed & are unremarkable except as noted in HPI and below PFSH All Active Problems (Updated 04/18/22 @ 13:20 by Jimbo Reyes MD) Depression (Chronic) Protein calorie malnutrition (Acute) Chronic pain (Chronic) TERESA (acute kidney injury) (Acute) C. difficile colitis (Acute) Discharge planning issues (Acute) DVT prophylaxis (Acute) Acute on chronic respiratory failure with hypoxia and hypercapnia (Acute) Secondary bacterial pneumonia (Acute) Influenza A (Acute) COPD exacerbation (Acute) Hypercarbia (Acute) Hospital acquired PNA (Acute) Advanced care planning/counseling discussion (Acute) Palliative care patient (Acute) Hypoxemia (Acute) Hospital-acquired bacterial pneumonia (Acute) Hyponatremia (Chronic) Epigastric pain (Acute) Discharge planning issues (Acute) DVT prophylaxis (Acute) COPD with acute exacerbation (Acute) Acute bronchitis (Acute) Odynophagia (Acute) Dysphagia (Acute) GERD (gastroesophageal reflux disease) (Chronic) Chronic obstructive pulmonary disease (Chronic) Chronic pain syndrome (Chronic 12/15/16) CONTROLLED SUBSTANCE AGREEMENT 10/03/18 Lumbosacral spondylosis without myelopathy (Acute) Fibromyalgia (Acute) Fall (Acute) Low back pain (Acute) Fever (Acute) Discharge planning issues (Acute) Acute exacerbation of chronic obstructive pulmonary disease (COPD) (Acute) T12 compression fracture (Acute) Ongoing leg pain (Acute) continue nSaid prn tramadol see surgeon next week consider topical analgesic on surrounding skin Hemoptysis (Acute) History of cataract removal with insertion of prosthetic lens (Acute 06/05/15) History of chest tube placement (Acute) Status post appendectomy (Acute) Status post laminectomy (Acute) Pain from implanted hardware (Chronic 10/30/18) S/P Hardware removal Bacterial pneumonia (Acute 11/23/13) Chronic anxiety (Chronic 06/22/13) Chronic emphysema syndrome (Chronic) Chronic pain in right shoulder (Chronic 11/20/13) Moderate protein malnutrition (Chronic 11/20/13) Contusion of right knee, initial encounter (Acute) Neck pain (Acute) Irritable bowel syndrome with diarrhea (Chronic) Cervical neck pain with evidence of disc disease (Chronic 06/22/13) History of tobacco abuse (Chronic) Anxiety (Chronic) LLL pneumonia (Acute ~03/30/18) Medical History (Updated 04/18/22 @ 13:20 by Jimbo Reyes MD) DNI (do not intubate) DNR (do not resuscitate) POLST (Physician Orders for Life-Sustaining Treatment) Surgical History Appendectomy CHEST TUBE Extraction of cataract 06/05/15; LEFT EYE; DR. ARAUZ H/O section Hx of hysterectomy LAMINECTOMY CERVICAL SPINE Family History Mother , at age 89, cardiac problems No problems noted. Father , at 81 Cancer Throat cancer Brother , at 71 Colon cancer Sister Diabetes DM2 Sister Diabetes DM2 Son No problems noted. Social History Smoking/Tobacco Use Status: Former Tobacco Use Quit Date: 09/16/13 Pack-years: 50 Smoking risk assessment performed?: Yes Alcohol Intake: former Year quit: 1979 Drug use: Never Substance use type: does not use Household members: none Housing: apartment Do you feel safe at home: Yes Do you feel safe in your relationship?: No Additional Social history: 16 years ago. Originally from [place], moved here to be near son and grand children. [place] in [place] apartment [place] House[place]. Enjoys contact with 4 grandchildren throughout the day (they are homeschooled and her home much of the time). Bedbound approximately 22 hours a day. On disability due to chronic back pain. 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 Approximate 75 pack year history of tobacco. No alcohol or illicit drug use endorsed. Visit Medication and Allergies Active Medications Generic Name Dose Route Start Last Admin Trade Name Freq PRN Reason Stop Dose Admin Acetaminophen 1,000 mg 04/19/22 11:30 Acetaminophen 500 Mg Tab PO Q8H PRN PRN Albuterol Sulfate 2.5 mg 04/11/22 02:23 04/20/22 21:55 Albuterol 2.5 Mg/3 Ml Inh Soln Vial UPD 2.5 mg Q4H PRN PRN Administration Albuterol/Ipratropium 3 ml 04/15/22 12:00 04/20/22 19:45 Albuterol/Ipratropium 3 Ml Upd Vial UPD 3 ml QID IOANA Administration Benzocaine/Menthol 1 each 04/12/22 14:44 Benzocaine/Menthol Lozg 18/Box SUC Q6H PRN PRN Benzonatate 100 mg 04/11/22 08:30 04/20/22 21:44 Benzonatate 100 Mg Cap PO 100 mg TID IOANA Administration Budesonide/Formoterol Fumarate 2 puff 04/11/22 14:00 04/20/22 19:44 Budesonide/Formoterol 80/4.5 6.9 Gm 60 Puff Inh IH 2 puff BID IOANA Administration Celecoxib 200 mg 04/11/22 20:00 04/11/22 20:03 Celecoxib 200 Mg Cap PO 200 mg BID IOANA Administration Cholecalciferol 3,000 units 04/12/22 08:30 04/20/22 08:20 Cholecalciferol (Vitamin D3) 1,000 Unit Tab PO 3,000 units DAILY IOANA Administration Cholestyramine/Aspartame 1 each 04/14/22 19:00 04/20/22 18:10 Cholestyramine/Aspartame Pkt PO 1 each 1000,1900 IOANA Administration Clonazepam 0.5 mg 04/16/22 14:00 04/20/22 21:43 Clonazepam 0.5 Mg Tab PO 0.5 mg TID IOANA Administration Cyclosporine 0 ml 04/11/22 20:00 04/20/22 21:46 Cyclosporine 0.4 Ml Ophth Vial OU 1 drp BID IOANA Administration Device 1 each 04/11/22 14:04 Inhaler, Assist Device DIRECTED [facility] Diclofenac Sodium 4 gm 04/14/22 12:00 04/20/22 21:48 Diclofenac 1% Gel 100 Gm Tube TP 1 applic QID IOANA Administration Dimethicone/Zinc Oxide 0 gm 04/11/22 02:23 Shahana Protect Cream 142 Gm Tube TP PRN PRN Dronabinol 2.5 mg 04/19/22 16:00 04/20/22 16:16 Dronabinol 2.5 Mg Cap PO 2.5 mg BID@1100,1600 IOANA Administration Enoxaparin Sodium 30 mg 04/13/22 08:30 04/20/22 08:19 Enoxaparin 30 Mg/0.3 Ml Syr SC 30 mg DAILY IOANA Administration Gabapentin 100 mg 04/11/22 14:04 04/20/22 21:44 Gabapentin 100 Mg Cap PO 100 mg TID IOANA Administration Guaifenesin 600 mg 04/11/22 08:30 04/20/22 21:44 Guaifenesin 600 Mg Tabcr PO 600 mg BID IOANA Administration Metronidazole 500 mg in 100 mls @ 100 mls/hr 04/12/22 18:00 04/21/22 03:14 Flagyl IVPB 100 mls/hr Q8H IOANA Administration Sodium Chloride 500 mls @ 0 mls/hr 04/13/22 12:37 04/20/22 18:09 Saline 500ml Bag IV 30 mls/hr PRN PRN Administration As Directed Lactobacillus Acidophilus/Casei 1 cap 04/15/22 08:30 04/20/22 21:44 L. Acidophilus, Casei, Rhamnosus Cap PO 1 cap BID IOANA Administration Methocarbamol 750 mg 04/13/22 11:58 04/17/22 21:28 Methocarbamol 750 Mg Tab PO 750 mg QID PRN PRN Administration Mirtazapine 15 mg 04/18/22 22:00 04/20/22 21:55 Mirtazapine 15 Mg Tab PO Not Given HS [facility] Multi-Ingredient Supplement 1 ounce 04/18/22 14:00 04/20/22 21:59 Protein Nutritional Supplement 16 Gm 1 Ounce Packet PO Not Given TID IOANA Non-Formulary 1 each 04/15/22 10:00 04/15/22 10:12 Medication ( TP 1 each Buprenorphine [ Q7D IOANA Administration Butrans] 7.5 Mcg/Hr Transdermal Patch) Omeprazole 40 mg 04/12/22 07:30 04/21/22 06:43 Omeprazole 20 Mg Capcr PO 40 mg DAILY@0730 IOANA Administration Ondansetron HCl 4 mg 04/15/22 08:34 04/17/22 09:17 Ondansetron 4 Mg/2 Ml Vial IVP 4 mg Q4H PRN PRN Administration Pt's Own Doxylamine 1 each 04/11/22 14:04 Succinate 25 Mg PO Tablet HS PRN PRN Insomnia Phenol 180 ml 04/12/22 14:44 04/14/22 22:25 Chloraseptic [place] 180 Ml Btl MM 1 spray QID PRN PRN Administration Potassium Chloride/Sodium Chloride 1 tab 04/11/22 20:00 04/20/22 21:49 Salt Supplement (Buffered) Tab PO 1 tab BID IOANA Administration Prednisone 60 mg 04/19/22 08:30 04/20/22 08:20 Prednisone 20 Mg Tab PO 60 mg DAILY IOANA Administration Psyllium Hydrophilic Mucilloid 1 each 04/15/22 08:30 04/20/22 21:47 Psyllium Pkt PO Not Given BID IOANA Roflumilast 500 mcg 04/12/22 08:30 04/20/22 08:21 Roflumilast 500 Mcg Tab PO 500 mcg DAILY IOANA Administration Sertraline HCl 100 mg 04/12/22 08:30 04/20/22 08:23 Sertraline 100 Mg Tab PO 100 mg DAILY IOANA Administration Sodium Chloride 0 ml 04/11/22 03:58 04/20/22 21:54 Normal Saline Flush 10 Ml Syr IVP 30 ml PRN PRN Administration Tiotropium [place] 2 puff 04/16/22 12:00 04/20/22 07:54 Tiotropium [place]-Respimat 10 Puff Inh IH 2 puffs DAILY IOANA Administration Trimethoprim/Sulfamethoxazole 1 tab 04/16/22 10:15 04/20/22 08:22 Sulfameth/Trimeth Ds Tab PO 1 tab DAILY IOANA Administration Vancomycin HCl 250 mg 04/12/22 18:00 04/21/22 06:43 Vancomycin 250 Mg Cap PO 250 mg Q6H IOANA Administration Vit C/Vit E/Zinc/Copper/Lutein 2 tab 04/12/22 08:30 04/20/22 08:22 Preservision Tablet PO 2 tab DAILY IOANA Administration Allergies No Known Allergies Allergy (Verified 02/13/22 07:59) Exam Narrative Exam Narrative: Gen: NAD, normal respiratory effort, well-nourished HENT: PERRL Chest: No respiratory distress, normal appearance of chest, clear to auscultation bilaterally, no crackles or wheezes, normal inspiratory effort Heart: regular rate and rhythym, no murmurs, rubs or gallops Abdomen: Non-distended, soft, non tender Extremities: No clubbing, edema, cyanosis, rashes Neuro: AAOx3 , non focal Psych: cooperative, appropriate mental affect Results Last Vital Signs Temp 35.8 C L 04/21/22 03:31 Pulse 73 04/21/22 05:01 Resp 14 04/21/22 05:01 BP 122/69 04/21/22 03:31 Pulse Ox 92 04/21/22 05:01 Labs Result diagrams: 04/20/22 06:30 04/21/22 06:40 Labs: Laboratory Results - last 24 hr 04/20/22 04/20/22 06:30 06:30 Sodium 142 Potassium 3.7 Chloride 103 Carbon Dioxide 36.0 H Anion Gap 3.0 BUN 37 H Creatinine 1.3 H Est GFR (CKD-EPI 2020) 42.62 Glucose 107 H Calcium 9.8 C-Reactive Protein 0.22 Procalcitonin < 0.1
[2022-04-21] MEDS: Budesonide/Formoterol 80/4.5 6.9 GM 60 PUFF INH IH ×2 (07:30→19:50)
[2022-04-21] MEDS: Albuterol/Ipratropium 3 ML UPD VIAL UPD ×4 (07:30→19:52)
[2022-04-21] MEDS: Tiotropium Bromide-Respimat 10 PUFF INH 2 PUFF IH (07:30)
[2022-04-21] MEDS: Cholecalciferol (Vitamin D3) 1,000 UNIT TAB 3000 UNITS PO (07:48)
[2022-04-21] MEDS: clonazePAM 0.5 MG TAB PO ×3 (07:49→21:40)
[2022-04-21] MEDS: guaiFENesin 600 MG TABCR PO ×2 (07:49→21:40)
[2022-04-21] MEDS: Sertraline 100 MG TAB PO (07:49)
[2022-04-21] MEDS: Sulfameth/Trimeth DS TAB 1 TAB PO (07:49)
[2022-04-21] MEDS: Salt Supplement (BUFFERED) TAB 1 TAB PO ×2 (07:49→21:40)
[2022-04-21] MEDS: Gabapentin 100 MG CAP PO ×3 (07:49→21:39)
[2022-04-21] MEDS: Roflumilast 500 MCG TAB PO (07:49)
[2022-04-21] MEDS: Benzonatate 100 MG CAP PO ×3 (07:49→21:40)
[2022-04-21] MEDS: predniSONE 20 MG TAB 60 MG PO (07:49)
[2022-04-21] MEDS: Diclofenac 1% Gel 100 GM TUBE TP ×4 (07:50→21:40)
[2022-04-21] MEDS: Enoxaparin 30 MG/0.3 ML SYR SC (07:50)
[2022-04-21] MEDS: Protein Nutritional Supplement 16 GM 1 OUNCE PACKET PO (07:50)
[2022-04-21] MEDS: Psyllium PKT 1 EACH PO (07:50)
[2022-04-21 08:01] LABS: Anion Gap 3.2 mmol/L (3-11); BUN 34 mg/dL (7-18); CO2 31.8 mmol/L (21.0-32.0); CREATININE 1.2 mg/dL (0.55-1.02); Calcium 9.2 mg/dL (8.5-10.1); Chloride 105 mmol/L (98-107); Estimated GFR 46.91 (mL/min/1.73m2); Glucose 125 mg/dL (74-106); Potassium 4.4 mmol/L (3.5-5.1); Sodium 140 mmol/L (136-145)
--- NOTE | 2022-04-21 09:22 | PDOC.CMPRO ---
- If Service Date Differs Date of service: 04/21/22 Time of Service: 09:22 Care Management Progress Note S/O: Laney was sitting up in bed when CM met with her. She informed CM that she had a really difficult morning. She vomited when she attempted to take one of her medications and then experienced severe abdominal pain. Eventually the pain subsided and Laney stated that she thinks it was from gas. Laney had asked to send a referral to [facility] for short term rehab. This was done but unfortunately they do not have any female beds. Laney declined to provide alternative facilities for rehab. At [place] request[place] [facility] [place] informed that she would prefer to go home rather than go to a different SNF. A: Laney is a 76 year old woman admitted on 04/11/22 with Influenza, COPD and pneumonia P:Anticipate Laney will be discharged home with a resumption of home health services when medically cleared. It is possible that she may go to a SNF for rehab prior to returning home if her oxygen requirements allow for that to happen. If her condition does not improve or deteriorates, it is possible she may go home on hospice. Laney will follow up with Pulmonology, her PCP and plan of care. CM will continue to support Laney and assess for discharge needs.
[2022-04-21] MEDS: Acetaminophen 500 MG TAB 1000 MG PO ×2 (09:24→12:00)
[2022-04-21] MEDS: Dronabinol 2.5 MG CAP PO ×2 (10:21→15:58)
[2022-04-21 11:59] LABS: BE 6 mmol/L (-2-3); HCO3 31 mmol/L (22-26); Site Right Radial; pCO2 51 mmHg (35-45); pH 7.39 (7.35-7.45); pO2 51 mmHg (80-105); sO2 86 % (95-98); tCO2 28 mmol/L (23-27)
[2022-04-21 12:00] LABS: FIO2L 2 L
[2022-04-21] MEDS: Nystatin 500000 UNITS/5 ML SUSP 5ML CUP PO ×2 (14:42→21:40)
--- NOTE | 2022-04-21 14:46 | PT.INTREAT ---
Date of service: 04/21/22 Time of Service: 14:12 PT Notes Visit Reasons: Flu, Pneumonia, COPD Inpatient Physical Therapy Treatment Note [facility] Date: 04/21/2022 PRECAUTIONS: Activity as tolerated, fall, monitor O2 SUBJECTIVE: Laney is pleasant and agreeable to participating in PT. She reports that she is feeling a little better this afternoon. OBJECTIVE: PAIN: No c/o pain BED MOBILITY/TRANSFERS: Sit-supine: I Supine-sit: I Sit-stand: SBA Stand-sit: SBA GAIT Assistive Device: FWW Weight bearing: Full Assist: SBA Distance: 100' Deviation: Mild SOB, anteroflexed posture, short step height and length, increased fatigue VITALS: Monitored continuously throughout session. SaO2: Ranged between 82% - 88% on 2L O2 with gait training. ASSESSMENT: Patient tolerated session with minimal complaint of SOB and some complaint of increased fatigue with gait training. She was able to tolerate a progression in gait distance with FWW support and SBA. PLAN: Continue with global strengthening and general conditioning for improved mobility and activity tolerance. TREATMENT CODE/TIME: Session 1: Refused x2 due to not feeling well Session 2: 29 minutes; [id number] x2 (14:12)
--- NOTE | 2022-04-21 17:25 | CHAPLAIN ---
Laney was resting in bed when I visited. She told me that she vomited for a few hours this morning after taking a med for C-diff and then experienced very bad gas pains. She felt well enough by lunch to eat a bit. She also walked in the hallway today, farther than she thought she'd be able to do. Laney is expecting her son, Stanley, to visit today. Stanley and his and four kids visit yesterday. Laney lives with them and spends a lot of time with the kids. Laney seemed more rested this afternoon, and more relaxed than yesterday. She said she thought she'd be able to sleep well tonight.
--- NOTE | 2022-04-21 17:31 | PGE_ITS ---
Date of Service Date of service: 04/21/22 Time of Service: 17:32 Assessment and Plan Assessment and plan (1) Acute on chronic respiratory failure with hypoxia and hypercapnia: Status: Acute Assessment and plan: Secondary to influenza in setting of end stage COPD w/ superimposed CAP. Patient completed 5 days of Zosyn (04/11 to 04/15) and had 2 complete days of Augmentin (04/15 to 04/17). Augment was resumed it on 04/18/22 as she had some residual infiltrate at her RLL although improved. Given ongoing diarrhea, will d/c the Augmentin. Her inflammatory markers have improved w/ normal WBC and procalcitonin down to 0.1 and she has finished her Tamiflu as of 04/15.. She is now on prednisone along w/ her LABA and LAMA but still required HFNC and BIPAP. She would benefit from Trilogy device; Pulmonary medicine consulted. CXR has shown improvement. On po NAC; increased by pulmonary to BID. Evaluating for home BiPAP. Now back on her chronic 2L NC. . (2) Influenza A: Status: Acute Assessment and plan: completed her Tamiflu (3) Secondary bacterial pneumonia: Status: Acute Assessment and plan: completed one week of Zosyn, and 2 days of Augmetin. normal WBC and procalcitonin. Augmentin resumed but then stopped given radiologists read of improving CXR. (4) COPD exacerbation: Status: Acute Assessment and plan: Pulmonary consulted. Prednisone taper initiated. 50mg today for 3 days, then: 40mg for 3 days, 30mg for 3 days, 30mg for 3 days, 20mg for 3 days, 10mg for 3 days, 5mg for 3 days Restart Trelegy at discharge and stop Spiriva and Symbicort. (5) C. difficile colitis: Status: Acute Assessment and plan: Significantly improved. Cont po vancomycin. Stop Flagly. (6) Chronic pain: Status: Chronic Assessment and plan: Buprenorphine patch 7.5 mcg/hr patch, voltaren gel. Continue muscle relaxants, heat. (7) Protein calorie malnutrition: Status: Acute Assessment and plan: patient is on MVI w/ zinc and copper. On protein liquid supplements. consult nutrition services. Marinol to stimulate her appetite appears to be helpful. (8) Depression: Status: Chronic Assessment and plan: Continue Remeron at night (9) DVT prophylaxis: Status: Acute Assessment and plan: SC enoxaparin (10) Discharge planning issues: Status: Acute Assessment and plan: DNR/DNI Subjective Subjective Patient reports: no new complaints, diarrhea (Improving. Only 1 stool that had some formed substance in the last appx 6-7 hours. ), shortness of breath (Baseline. ) and afebrile; denies blood in stool, nausea or vomiting Interval history since last seen: She declines using the Banatrol; made her feel like she might vomit. Exam Narrative Exam Narrative: Laney sitting up in chair. Pleasant and cooperative. Lungs: Diminished breath sounds. Soft basilar rales in bases. Heart is regular rate and rhythm Abdomen soft nondistended normal bowel sounds nontender Extremities without peripheral cyanosis or edema Neuro exam grossly intact no focal motor or sensory deficits. A&O x 3. Objective Last Vital Signs Temp 37 C 04/21/22 15:13 Pulse 86 04/21/22 16:57 Resp 16 04/21/22 16:57 BP 110/65 04/21/22 15:13 Pulse Ox 88 L 04/21/22 16:57 Laboratory Results - last 24 hr 04/21/22 04/21/22 06:40 11:55 ABG Sample Site Right Radial ABG pH 7.39 ABG pCO2 51 H ABG pO2 51 L ABG HCO3 31 H ABG Total CO2 28 H ABG O2 Saturation 86 L ABG Base Excess 6 H Oxygen Liter Flow 2 Sodium 140 Potassium 4.4 Chloride 105 Carbon Dioxide 31.8 Anion Gap 3.2 BUN 34 H Creatinine 1.2 H Est GFR (CKD-EPI 2020) 46.91 Glucose 125 H Calcium 9.2 Time Spent with Patient Time Spent with Patient: 25-34 minutes Time was spent: preparing to see the patient(eg.review tests), ordering medications,tests, procedures, referring, communicating with other health home visit field care manager, indepentently interpreting results and counseling the patient
[2022-04-21] MEDS: Cholestyramine/Aspartame PKT 1 EACH PO (18:26)
[2022-04-21] MEDS: Mirtazapine 15 MG TAB PO (21:40)
[2022-04-21] MEDS: Normal Saline Flush 10 ML SYR IVP (21:42)
[2022-04-22] VITALS (18 sets, daily range): BP systolic 111–158; BP diastolic 67–81; PULSE 83–113; RESP 4–22; TEMP 36.5–37.4; O2SAT 78–97
[2022-04-22] MEDS: Omeprazole 20 MG CAPCR 40 MG PO (07:31)
[2022-04-22] MEDS: Tiotropium Bromide-Respimat 10 PUFF INH 2 PUFF IH (07:36)
[2022-04-22] MEDS: Budesonide/Formoterol 80/4.5 6.9 GM 60 PUFF INH IH ×2 (07:37→22:20)
[2022-04-22] MEDS: Albuterol/Ipratropium 3 ML UPD VIAL UPD ×4 (08:34→22:19)
[2022-04-22] MEDS: Psyllium PKT 1 EACH PO (08:37)
[2022-04-22] MEDS: Benzonatate 100 MG CAP PO ×3 (08:37→22:21)
[2022-04-22] MEDS: Nystatin 500000 UNITS/5 ML SUSP 5ML CUP PO ×3 (08:37→22:22)
[2022-04-22] MEDS: Enoxaparin 30 MG/0.3 ML SYR SC (08:37)
[2022-04-22] MEDS: clonazePAM 0.5 MG TAB PO ×3 (08:38→22:21)
[2022-04-22] MEDS: predniSONE 20 MG TAB 60 MG PO (08:38)
[2022-04-22] MEDS: Salt Supplement (BUFFERED) TAB 1 TAB PO ×2 (08:38→22:22)
[2022-04-22] MEDS: guaiFENesin 600 MG TABCR PO ×2 (08:38→22:22)
[2022-04-22] MEDS: Sertraline 100 MG TAB PO (08:38)
[2022-04-22] MEDS: Sulfameth/Trimeth DS TAB 1 TAB PO (08:38)
[2022-04-22] MEDS: Gabapentin 100 MG CAP PO ×3 (08:38→22:22)
[2022-04-22] MEDS: Cholecalciferol (Vitamin D3) 1,000 UNIT TAB 3000 UNITS PO (08:38)
[2022-04-22] MEDS: Roflumilast 500 MCG TAB PO (08:38)
[2022-04-22] MEDS: Diclofenac 1% Gel 100 GM TUBE TP ×4 (08:39→22:21)
[2022-04-22 09:18] LABS: BE 5 mmol/L (-2-3); HCO3 31 mmol/L (22-26); pCO2 53 mmHg (35-45); pH 7.37 (7.35-7.45); pO2 47 mmHg (80-105); sO2 83 % (95-98); tCO2 28 mmol/L (23-27)
[2022-04-22 09:19] LABS: FIO2L 2 L; Site Right Radial
--- NOTE | 2022-04-22 10:11 | CMPROGNOTE_ITS ---
- If Service Date Differs Date of service: 04/22/22 Time of Service: 10:11 Care Management Progress Note S/O: Laney was working with PT when CM attempted to visit with her today. Per report, she had an overnight oximetry and ABG last night, and the results have qualified her for BiPAP. Per RT, she may not be set up for the BiPAP until next Tuesday, due to availability. Laney is requesting a hospital bed and orders were sent to [facility]. Per MD, she will be on a steroid taper starting tomorrow. She may require SWB1 while waiting for equipment needs to be filled. CM will continue to follow. A: Laney is a 76 year old woman admitted on 04/11/22 with Influenza, COPD and pneumonia P:Anticipate Laney will be discharged home with a resumption of home health services when medically cleared. It is possible that she may go to a SNF for rehab prior to returning home if her oxygen requirements allow for that to happen. If her condition does not improve or deteriorates, it is possible she may go home on hospice. Laney will follow up with Pulmonology, her PCP and plan of care. CM will continue to support Laney and assess for discharge needs.
[2022-04-22] MEDS: Dronabinol 2.5 MG CAP PO ×2 (10:29→16:07)
[2022-04-22] MEDS: Cholestyramine/Aspartame PKT 1 EACH PO ×2 (10:30→19:11)
--- NOTE | 2022-04-22 11:55 | W.PM.PROGNOT ---
Date of Service Date of service: 04/22/22 Time of Service: 11:55 Assessment and Plan Assessment and plan (1) Acute on chronic respiratory failure with hypoxia and hypercapnia: Status: Acute Assessment and plan: Secondary to influenza in setting of end stage COPD w/ superimposed CAP. Patient completed 5 days of Zosyn (04/11 to 04/15) and had 2 complete days of Augmentin (04/15 to 04/17). Augment was resumed it on 04/18/22 as she had some residual infiltrate at her RLL although improved. Augment subsequently stopped because of ongoing C.Diff. Her inflammatory markers have improved w/ normal WBC and procalcitonin down to 0.1 and she has finished her Tamiflu as of 04/15.. She is now on prednisone taper along w/ her LABA and LAMA. Now back on nasal cannula at 2-3 liters. Overnight oximetry and ABG performed and outcomes qualified her for home BiPAP. 5 nocturnal %SpO2 level drops to between 79-75. ABG with a pCO2 of 53. BiPAP will be beneficial in preventing hypercarbia related somnolence, mental status alterations and then potential hospitalization. . (2) Influenza A: Status: Acute Assessment and plan: completed her Tamiflu (3) Secondary bacterial pneumonia: Status: Acute Assessment and plan: completed one week of Zosyn, and 2 days of Augmetin. normal WBC and procalcitonin. Augmentin resumed but then stopped given radiologists read of improving CXR. (4) COPD exacerbation: Status: Acute Assessment and plan: Pulmonary consulted. Prednisone taper initiated. 50mg today for 3 days, then: 40mg for 3 days, 30mg for 3 days, 30mg for 3 days, 20mg for 3 days, 10mg for 3 days, 5mg for 3 days Restart Trelegy at discharge and stop Spiriva and Symbicort. See above also. (5) C. difficile colitis: Status: Acute Assessment and plan: Significantly improved. Cont po vancomycin. Stopped Flagyl. (6) Chronic pain: Status: Chronic Assessment and plan: Buprenorphine patch 7.5 mcg/hr patch, voltaren gel. Continue muscle relaxants, heat. (7) Protein calorie malnutrition: Status: Acute Assessment and plan: patient is on MVI w/ zinc and copper. On protein liquid supplements. consult nutrition services. Marinol to stimulate her appetite appears to be helpful. Also on Remeron for insomnia; this can also be beneficial for appetite stimulation. (8) Depression: Status: Chronic Assessment and plan: Continue Remeron at night (9) DVT prophylaxis: Status: Acute Assessment and plan: SC enoxaparin (10) Discharge planning issues: Status: Acute Assessment and plan: DNR/DNI BiPAP qualification paperwork sent to [facility], [place]; likely won't have device available until next week. Likely will convert to swingbed tomorrow if remains stable and improving. D/C to home when BiPAP available. Subjective Subjective Patient reports: no new complaints, feels better, tolerating a regular diet and afebrile; denies nausea, vomiting or shortness of breath Exam Narrative Exam Narrative: Laney is walking in the hallway with a 4 wheeled walker. Conversant while walking. On 2L per NC Lungs: Diminished breath sounds. Soft basilar rales in bases. Heart is regular rate and rhythm Abdomen soft nondistended normal bowel sounds nontender Extremities without peripheral cyanosis or edema Neuro exam grossly intact no focal motor or sensory deficits. A&O x 3. Objective Last Vital Signs Temp 37.1 C 04/22/22 11:32 Pulse 90 04/22/22 11:32 Resp 18 04/22/22 11:32 BP 127/76 04/22/22 11:32 Pulse Ox 96 04/22/22 11:32 Laboratory Results - last 24 hr 04/21/22 04/22/22 11:55 09:10 ABG Sample Site Right Radial Right Radial ABG pH 7.39 7.37 ABG pCO2 51 H 53 H ABG pO2 51 L 47 L ABG HCO3 31 H 31 H ABG Total CO2 28 H 28 H ABG O2 Saturation 86 L 83 L ABG Base Excess 6 H 5 H Oxygen Liter Flow 2 2 Time Spent with Patient Time Spent with Patient: 25-34 minutes Time was spent: preparing to see the patient(eg.review tests), obtaining and/or reviewing separately otained hiistory, ordering medications,tests, procedures, referring, communicating with other health childcare administrator, indepentently interpreting results and care coordination
--- NOTE | 2022-04-22 12:33 | W.PALPGNOTE ---
Date of service: 04/22/22 Time of Service: 09:30 Assessment and Plan Assessment and plan (1) Protein calorie malnutrition: Status: Acute Assessment and plan: Patient expressed distaste for protein shakes and other supplements. She does enjoy eating yogurt, which has been encouraged recently and plans to do more at home. She also identified homemade macaroni and cheese as a desired food currently. We discussed that eating for pleasure and driving calories and protein from actual food rather than protein shakes and supplements is preferable as long as her appetite is supporting this. She may benefit from nutritional consult from home health when she is home. (2) Chronic pain: Status: Chronic Assessment and plan: Chronic lower back pain and neck pain exacerbated yesterday with abdominal pain. Overall she is surprised to find that her chronic back and neck pain are better than usual overall during this hospital stay. Her Butrans patch was increased to 7.5 first 2 days she was here. She says she is actually been more active and spending more time in an upright position during her hospitalization than she did previously at home. She attributes the improved pain from being more active. She is going to be try to be more active when she goes home. (3) C. difficile colitis: Status: Acute Assessment and plan: Stools are now soft, still up to 3 a day. Patient has a history of chronic soft stools. We discussed the need for her and her family to monitor for recurrence of diarrhea when she has completed antibiotics and to report this to her PCP immediately should it recur. (4) Hypercarbia: Status: Acute Assessment and plan: Patient appears to have a good understanding of hypocarbia and the need to keep home oxygen saturations lower than her previous goal range. She seems accepting of this and think she can make the adjustment. I think will be helpful for her to get written recommended ranges and written recommended maximum O2 sat; this will help will be helpful to family and home health as well. (5) Acute on chronic respiratory failure with hypoxia and hypercapnia: Status: Acute Assessment and plan: Patient finally turned the corner and is actually doing better on 2 L oxygen. She now has a lower target range maximum O2 sat in the low 90s to prevent hypercarbia. (6) Palliative care patient: Status: Acute Assessment and plan: Patient and I had a long in-depth discussion reviewing this hospitalization and her goals of care going forward. -She was quite clear today that she would want to treat any future respiratory infections. She would prefer to be treated as an outpatient with oral medications. But she would want to come back to the hospital for treatment. -She thought she would have to go to hospice to get a hospital bed. But that is the only reason she was aware of that she would need to enroll in hospice. As above, she would like to continue to treat COPD exacerbations and respiratory infections. Case management is working on seeing if she qualifies for hospital bed. Other options if not approved by insurance include family procuring used hospital bed through other avenues. -We reviewed how difficult the first 2 days of her last hospitalization was for her. Reviewed that at times she was not sure she wanted to continue treatment and that maybe it was time to stop. We discussed what she would want to do if she got this sick or even sicker in the future. Reviewed that usual course for severe COPD is episodes of stability punctuated by episodic crises. Discussed option of continued medical intervention (while avoiding invasive interventions) versus considering hospice based approach. Today, patient says she is not interested in hospice based approach but acknowledges that she may be in the future. We agreed that I will do home visit as an outpatient in about 2 to 3 weeks and we can review this at that time. (7) Advanced care planning/counseling discussion: Status: Acute Assessment and plan: See above Subjective Subjective Interval history since last seen: Palliative care followed up with patient today. -Overall she feels she is improving. However she is very tired. Feels like she is always being asked to do things but understands why this needs to be done. -PT impressed by her ability to walk 100 feet yesterday. -Episode of vomiting and increased flatus with abdominal discomfort yesterday, better today, still passing a lot of gas. Attributes this to banana flakes which she is no longer going to use. -Had overnight oximetry on 2 L of oxygen. Respiratory therapy reports majority of desaturations into the mid 70s O2 saturation. As per Dr. Galloway and respiratory therapy, home BiPAP is advised. Process will be started to put this in place before she returns home. -Patient's appetite is coming back. -Patient is looking forward to returning home and seeing her grandchildren again. - Time spent today total 60 minutes including chart review, discussion with case management and hospitalist, discussion with patient, documentation. Exam Const Other: Patient is looking upbeat and sharp today. Speech is more crisp and quicker. No confusion. Full affect, smiles and lots of facial expressions, back to baseline. No coughing. No dyspnea. More comfortably speaking in complete sentences without of breath. Color is good Objective Last Vital Signs Temp 37.1 C 04/22/22 11:32 Pulse 90 04/22/22 11:32 Resp 18 04/22/22 11:32 BP 127/76 04/22/22 11:32 Pulse Ox 85 L 04/22/22 11:57 Laboratory Results - last 24 hr 04/22/22 09:10 ABG Sample Site Right Radial ABG pH 7.37 ABG pCO2 53 H ABG pO2 47 L ABG HCO3 31 H ABG Total CO2 28 H ABG O2 Saturation 83 L ABG Base Excess 5 H Oxygen Liter Flow 2
--- NOTE | 2022-04-22 13:24 | PT.INTREAT ---
Date of service: 04/22/22 Time of Service: 10:03 PT Notes Visit Reasons: Flu, Pneumonia, COPD Inpatient Physical Therapy Treatment Note [facility] Date: 04/22/2022 PRECAUTIONS: Activity as tolerated, fall, monitor O2 SUBJECTIVE: Laney is pleasant and agreeable to participating in PT. She reports that she is feeling very tired today. OBJECTIVE: PAIN: No c/o pain BED MOBILITY/TRANSFERS: Sit-supine: I Supine-sit: I Sit-stand: I Stand-sit: I GAIT Assistive Device: FWW Weight bearing: Full Assist: S Distance: 150' in a.m.; 200' in p.m. Deviation: Mild SOB, anteroflexed posture, short step height and length, increased fatigue VITALS: Monitored continuously throughout session. SaO2: Ranged between 77% - 88% in a.m., 76% - 88% on 2L O2 with gait training. ASSESSMENT: Patient tolerated session with minimal complaint of SOB and some complaint of increased fatigue with gait training. She was able to tolerate a progression in gait distance with FWW support and SBA. PLAN: Continue with global strengthening and general conditioning for improved mobility and activity tolerance. TREATMENT CODE/TIME: Session 1: 14 minutes; 58090 (10:03) Session 2: 16 minutes; 27334 (14:23)
[2022-04-22] MEDS: Mirtazapine 15 MG TAB PO (22:22)
[2022-04-23] VITALS (7 sets, daily range): BP systolic 114–124; BP diastolic 70–72; PULSE 76–102; RESP 4–24; TEMP 36.6–37.3; O2SAT 80–96
--- NOTE | 2022-04-23 07:01 | W.PULMPROG ---
Assessment and Plan Assessment and plan (1) Acute on chronic respiratory failure with hypoxia and hypercapnia: Status: Acute (2) Influenza A: Status: Acute (3) Secondary bacterial pneumonia: Status: Acute (4) COPD exacerbation: Status: Acute Assessment and plan: This is a 76 yo woman admitted for a COPD exacerbation due to influenza and a bacterial pneumonia requiring nocturnal BiPAP and HFNC. She has qualified for nocturnal BiPAP and the hospitalist team is working on getting this for her from [facility]. She should be on BiPAP nightly and with naps set to 10/5 with a 3LPM bleed. Acute on chronic hypoxic and hypercapnic respiratory failure - BiPAP nightly 10/5 with 3LPM bleed - supplemental O2 for sats 88-92% COPD Exacerbation - taper prednisone: start 50mg today for 3 days, then: 40mg for 3 days, 30mg for 3 days, 30mg for 3 days, 20mg for 3 days, 10mg for 3 days, 5mg for 3 days - Bactrim can be discontinued for ppx once prednisone dose is below 20mg - upon discharge please restart Trelegy 100 and stop Spiriva and Symbicort - please ensure patient has a nebulizer and Duonebs on discharge - PO NAC 600mg bid - I will arrange follow up care with me General Date Of Service Date of service: 04/23/22 Time of Service: 07:02 Reason for Consult: Need for Trilogy? COPD Subjective 24 Hour Events: Laney is doing well today. She tells me that they did not place her on BiPAP last night. She did qualify for nocturnal BiPAP based on her ABG, overnight oximetry and low likelihood of ALY. She is now on nasal cannula and not requiring HFNC anymore. Exam Narrative Exam Narrative: Gen:?NAD, normal respiratory effort, well-nourished HENT:?PERRL Chest:?No respiratory distress, normal appearance of chest, clear to auscultation bilaterally, scattered expiratory wheeze, normal inspiratory effort Heart:?regular rate and rhythym, no murmurs, rubs or gallops Abdomen:?Non-distended, soft, non tender Extremities:?No clubbing, edema, cyanosis, rashes Neuro:?AAOx3 , non focal Psych:?cooperative, appropriate mental affect Const Other: Gen:?NAD, normal respiratory effort, well-nourished HENT:?PERRL Chest:?No respiratory distress, normal appearance of chest, clear to auscultation bilaterally, scattered expiratory wheezing, normal inspiratory effort Heart:?regular rate and rhythym, no murmurs, rubs or gallops Abdomen:?Non-distended, soft, non tender Extremities:?No clubbing, edema, cyanosis, rashes Neuro:?AAOx3 , non focal Psych:?cooperative, appropriate mental affect Objective Last Vital Signs Temp 36.6 C 04/23/22 06:36 Pulse 76 04/23/22 06:36 Resp 18 04/23/22 06:36 BP 122/70 04/23/22 06:36 Pulse Ox 94 04/23/22 06:36 Laboratory Results - last 24 hr 04/22/22 09:10 ABG Sample Site Right Radial ABG pH 7.37 ABG pCO2 53 H ABG pO2 47 L ABG HCO3 31 H ABG Total CO2 28 H ABG O2 Saturation 83 L ABG Base Excess 5 H Oxygen Liter Flow 2 Results Medications Medications: Active Medications Generic Name Dose Route Start Last Admin Trade Name Freq PRN Reason Stop Dose Admin Acetaminophen 1,000 mg 04/19/22 11:30 04/21/22 12:00 Acetaminophen 500 Mg Tab PO 1,000 mg Q8H PRN PRN Administration Albuterol Sulfate 2.5 mg 04/11/22 02:23 04/20/22 21:55 Albuterol 2.5 Mg/3 Ml Inh Soln Vial UPD 2.5 mg Q4H PRN PRN Administration Albuterol/Ipratropium 3 ml 04/15/22 12:00 04/22/22 22:19 Albuterol/Ipratropium 3 Ml Upd Vial UPD 3 ml QID IOANA Administration Benzocaine/Menthol 1 each 04/12/22 14:44 Benzocaine/Menthol Lozg 18/Box SUC Q6H PRN PRN Benzonatate 100 mg 04/11/22 08:30 04/22/22 22:21 Benzonatate 100 Mg Cap PO 100 mg TID IOANA Administration Budesonide/Formoterol Fumarate 2 puff 04/11/22 14:00 04/22/22 22:20 Budesonide/Formoterol 80/4.5 6.9 Gm 60 Puff Inh IH 2 puff BID IOANA Administration Celecoxib 200 mg 04/11/22 20:00 04/11/22 20:03 Celecoxib 200 Mg Cap PO 200 mg BID IOANA Administration Cholecalciferol 3,000 units 04/12/22 08:30 04/22/22 08:38 Cholecalciferol (Vitamin D3) 1,000 Unit Tab PO 3,000 units DAILY IOANA Administration Cholestyramine/Aspartame 1 each 04/14/22 19:00 04/22/22 19:11 Cholestyramine/Aspartame Pkt PO 1 each 1000,1900 IOANA Administration Clonazepam 0.5 mg 04/16/22 14:00 04/22/22 22:21 Clonazepam 0.5 Mg Tab PO 0.5 mg TID IOANA Administration Cyclosporine 0 ml 04/11/22 20:00 04/22/22 22:21 Cyclosporine 0.4 Ml Ophth Vial OU 1 drp BID IOANA Administration Device 1 each 04/11/22 14:04 Inhaler, Assist Device [facility] DIRECTED [facility] Diclofenac Sodium 4 gm 04/14/22 12:00 04/22/22 22:21 Diclofenac 1% Gel 100 Gm Tube TP 1 applic QID IOANA Administration Dimethicone/Zinc Oxide 0 gm 04/11/22 02:23 Shahana Protect Cream 142 Gm Tube TP PRN PRN Dronabinol 2.5 mg 04/19/22 16:00 04/22/22 16:07 Dronabinol 2.5 Mg Cap PO 2.5 mg BID@1100,1600 IOANA Administration Enoxaparin Sodium 30 mg 04/13/22 08:30 04/22/22 08:37 Enoxaparin 30 Mg/0.3 Ml Syr SC 30 mg DAILY IOANA Administration Gabapentin 100 mg 04/11/22 14:04 04/22/22 22:22 Gabapentin 100 Mg Cap PO 100 mg TID IOANA Administration Guaifenesin 600 mg 04/11/22 08:30 04/22/22 22:22 Guaifenesin 600 Mg Tabcr PO 600 mg BID IOANA Administration Sodium Chloride 500 mls @ 0 mls/hr 04/13/22 12:37 04/21/22 18:41 Saline 500ml Bag IV Infused PRN PRN Infusion As Directed Lactobacillus Acidophilus/Casei 1 cap 04/15/22 08:30 04/22/22 22:27 L. Acidophilus, Casei, Rhamnosus Cap PO 1 cap BID IOANA Administration Methocarbamol 750 mg 04/13/22 11:58 04/17/22 21:28 Methocarbamol 750 Mg Tab PO 750 mg QID PRN PRN Administration Mirtazapine 15 mg 04/18/22 22:00 04/22/22 22:22 Mirtazapine 15 Mg Tab PO 15 mg HS IOANA Administration Multi-Ingredient Supplement 1 ounce 04/18/22 14:00 04/22/22 22:27 Protein Nutritional Supplement 16 Gm 1 Ounce Packet PO Not Given TID IOANA Non-Formulary 1 each 04/15/22 10:00 04/22/22 10:29 Medication ( TP 1 each Buprenorphine [ Q7D IOANA Administration Butrans] 7.5 Mcg/Hr Transdermal Patch) Nystatin 500,000 units 04/21/22 14:00 04/22/22 22:22 Nystatin 396523 Units/5 Ml Susp 5ml Cup PO 500,000 units TID IOANA Administration Omeprazole 40 mg 04/12/22 07:30 04/22/22 07:31 Omeprazole 20 Mg Capcr PO 40 mg DAILY@0730 IOANA Administration Ondansetron HCl 4 mg 04/15/22 08:34 04/17/22 09:17 Ondansetron 4 Mg/2 Ml Vial IVP 4 mg Q4H PRN PRN Administration Pt's Own Doxylamine 1 each 04/11/22 14:04 Succinate 25 Mg PO Tablet HS PRN PRN Insomnia Phenol 180 ml 04/12/22 14:44 04/14/22 22:25 Chloraseptic [place] 180 Ml Btl MM 1 spray QID PRN PRN Administration Potassium Chloride/Sodium Chloride 1 tab 04/11/22 20:00 04/22/22 22:22 Salt Supplement (Buffered) Tab PO 1 tab BID IOANA Administration Prednisone 50 mg 04/23/22 08:30 Prednisone 20 Mg Tab PO DAILY IOANA Psyllium Hydrophilic Mucilloid 1 each 04/15/22 08:30 04/22/22 22:23 Psyllium Pkt PO Not Given BID IOANA Roflumilast 500 mcg 04/12/22 08:30 04/22/22 08:38 Roflumilast 500 Mcg Tab PO 500 mcg DAILY IOANA Administration Sertraline HCl 100 mg 04/12/22 08:30 04/22/22 08:38 Sertraline 100 Mg Tab PO 100 mg DAILY IOANA Administration Sodium Chloride 0 ml 04/11/22 03:58 04/21/22 21:42 Normal Saline Flush 10 Ml Syr IVP 10 ml PRN PRN Administration Tiotropium [place] 2 puff 04/16/22 12:00 04/22/22 07:36 Tiotropium [place]-Respimat 10 Puff Inh IH 2 puffs DAILY IOANA Administration Trimethoprim/Sulfamethoxazole 1 tab 04/16/22 10:15 04/22/22 08:38 Sulfameth/Trimeth Ds Tab PO 1 tab DAILY IOANA Administration Vancomycin HCl 250 mg 04/12/22 18:00 04/23/22 05:50 Vancomycin 250 Mg Cap PO 04/26/22 17:59 250 mg Q6H IOANA Administration Vit C/Vit E/Zinc/Copper/Lutein 2 tab 04/12/22 08:30 04/22/22 08:39 Preservision Tablet PO 2 tab DAILY IOANA Administration Allergies No Known Allergies Allergy (Verified 02/13/22 07:59) Labs Result Diagrams: 04/20/22 06:30 04/21/22 06:40 Labs: 04/11/22 01:59 Blood Blood Culture - Final NO GROWTH 120 HOURS 04/11/22 01:41 Blood Blood Culture - Final NO GROWTH 120 HOURS 04/12/22 18:15 Sputum Sputum Culture - Final Normal [place] 04/12/22 18:15 Sputum Gram Stain - Final 04/11/22 10:00 Nose MRSA Screen - Final Laboratory Tests Range/Units 04/11/22 04/11/22 04/11/22 00:44 00:44 00:44 WBC (4.4-10.8) 10^3/uL RBC (3.93-5.22) 10^6/uL Hgb (11.2-15.7) g/dL Hct (36.0-46.0) % MCV (80-95) fL MCH (27.0-33.0) pg MCHC (32.0-36.0) % RDW (11.7-14.6) % Plt Count (130-400) 10^3/uL MPV (8.0-11.0) fL Immature Gran % Neutrophils % Lymphocytes % Monocytes % Eosinophils % Basophils % Nucleated RBC % (0.0-0.3) % Absolute Neutrophils (1.2-6.7) 10^3/uL Absolute Lymphocytes (1.2-3.4) 10^3/uL Absolute Monocytes (0.1-0.8) 10^3/uL Absolute Eosinophils (0.0-0.7) 10^3/uL Absolute Basophils (0.0-0.2) 10^3/uL ABG Sample Site ABG pH (7.35-7.45) ABG pCO2 (35-45) mmHg ABG pO2 (80-105) mmHg ABG HCO3 (22-26) mmol/L ABG Total CO2 (23-27) mmol/L ABG O2 Saturation (95-98) % ABG Base Excess (-2-3) mmol/L VBG pH (7.31-7.41) 7.25 L VBG pCO2 (41-51) mmHg > 100 H* VBG pO2 mmHg 47 VBG HCO3 Not Applicable VBG Total CO2 Not Applicable VBG O2 Saturation % 79 VBG Base Excess Not Applicable VBG Lactate (0.6-1.4) mmol/L Oxygen Liter Flow L Sodium (136-145) mmol/L 139 Potassium (3.5-5.1) mmol/L 4.0 Chloride (98-107) mmol/L 95 L Carbon Dioxide (21.0-32.0) mmol/L > 45.0 H Anion Gap (3-11) mmol/L -1.26633 L BUN (7-18) mg/dL 10 Creatinine (0.55-1.02) mg/dL 0.6 Est GFR (CKD-EPI 2020) (mL/min/1.73m2) 92.97 Glucose (74-106) mg/dL 173 H Calcium (8.5-10.1) mg/dL 9.6 Phosphorus (2.6-4.7) mg/dL Magnesium (1.8-2.4) mg/dL Total Bilirubin (0.2-1.0) mg/dL 0.4 AST (15-37) U/L 20 ALT (14-59) U/L 8 L Alkaline Phosphatase (46-116) U/L 93 Troponin I (<or=60) ng/L < 50 C-Reactive Protein (0.0-0.3) mg/dL NT-Pro-B Natriuret Pep (<300) pg/mL 989 H Total Protein (6.4-8.2) g/dL 8.2 Albumin (3.4-5.0) g/dL 3.4 Procalcitonin ng/mL TSH (0.36-3.74) uIU/mL 0.23 L Free T4 (0.76-1.46) ng/dL 1.36 Urine Color (Yellow) Urine Clarity (Clear) Urine pH (5-8) Ur Specific Christine (1.005-1.025) Urine Protein (Negative) mg/dL Urine Ketones (Negative) mg/dL Urine Blood (Negative) Urine Nitrite (Negative) Urine Bilirubin (Negative) Urine Urobilinogen (Up TO 0.2) EU/dL Ur Leukocyte Esterase (Negative) Urine RBC (0-2) HPF Urine WBC (0-5) HPF Ur Epithelial Cells (Negative) HPF Urine Crystals (Negative) HPF Urine Bacteria (Negative) HPF Urine Casts (Negative) LPF Urine Mucus (Negative) Ur Culture Indicated? Urine Glucose (Negative) mg/dL Stool Campylobacter PCR (Negative) Stl C.difficile Tox PCR (Negative) Stool Salmonella PCR (Negative) Stool Shigella PCR (Negative) COVID-19 Source SARS-CoV-2 (PCR) (Negative) Influenza Type A (PCR) (Negative) Influenza Type B (PCR) (Negative) Urine Legionella Ag (Negative) M. pneumoniae Source M. pneumoniae (PCR) RSV (PCR) (Negative) Shiga Toxin (PCR) (Negative) Ur Strep pneumoniae Ag (Negative) Add-On Test Request Range/Units 04/11/22 04/11/22 04/11/22 00:44 00:44 00:44 WBC (4.4-10.8) 10^3/uL 18.57 H RBC (3.93-5.22) 10^6/uL 5.25 H Hgb (11.2-15.7) g/dL 15.1 Hct (36.0-46.0) % 50.3 H MCV (80-95) fL 96 H MCH (27.0-33.0) pg 28.8 MCHC (32.0-36.0) % 30.0 L RDW (11.7-14.6) % 13.3 Plt Count (130-400) 10^3/uL 249 MPV (8.0-11.0) fL 9.1 Immature Gran % 0.4 Neutrophils % 94.2 Lymphocytes % 2.7 Monocytes % 2.4 Eosinophils % 0.0 Basophils % 0.3 Nucleated RBC % (0.0-0.3) % 0.0 Absolute Neutrophils (1.2-6.7) 10^3/uL 17.49 H Absolute Lymphocytes (1.2-3.4) 10^3/uL 0.50 L Absolute Monocytes (0.1-0.8) 10^3/uL 0.45 Absolute Eosinophils (0.0-0.7) 10^3/uL 0.00 Absolute Basophils (0.0-0.2) 10^3/uL 0.06 ABG Sample Site ABG pH (7.35-7.45) ABG pCO2 (35-45) mmHg ABG pO2 (80-105) mmHg ABG HCO3 (22-26) mmol/L ABG Total CO2 (23-27) mmol/L ABG O2 Saturation (95-98) % ABG Base Excess (-2-3) mmol/L VBG pH (7.31-7.41) VBG pCO2 (41-51) mmHg VBG pO2 mmHg VBG HCO3 VBG Total CO2 VBG O2 Saturation % VBG Base Excess VBG Lactate (0.6-1.4) mmol/L 0.8 Oxygen Liter Flow L Sodium (136-145) mmol/L Potassium (3.5-5.1) mmol/L Chloride (98-107) mmol/L Carbon Dioxide (21.0-32.0) mmol/L Anion Gap (3-11) mmol/L BUN (7-18) mg/dL Creatinine (0.55-1.02) mg/dL Est GFR (CKD-EPI 2020) (mL/min/1.73m2) Glucose (74-106) mg/dL Calcium (8.5-10.1) mg/dL Phosphorus (2.6-4.7) mg/dL Magnesium (1.8-2.4) mg/dL Total Bilirubin (0.2-1.0) mg/dL AST (15-37) U/L ALT (14-59) U/L Alkaline Phosphatase (46-116) U/L Troponin I (<or=60) ng/L C-Reactive Protein (0.0-0.3) mg/dL NT-Pro-B Natriuret Pep (<300) pg/mL Total Protein (6.4-8.2) g/dL Albumin (3.4-5.0) g/dL Procalcitonin ng/mL TSH (0.36-3.74) uIU/mL Free T4 (0.76-1.46) ng/dL Urine Color (Yellow) Urine Clarity (Clear) Urine pH (5-8) Ur Specific Christine (1.005-1.025) Urine Protein (Negative) mg/dL Urine Ketones (Negative) mg/dL Urine Blood (Negative) Urine Nitrite (Negative) Urine Bilirubin (Negative) Urine Urobilinogen (Up TO 0.2) EU/dL Ur Leukocyte Esterase (Negative) Urine RBC (0-2) HPF Urine WBC (0-5) HPF Ur Epithelial Cells (Negative) HPF Urine Crystals (Negative) HPF Urine Bacteria (Negative) HPF Urine Casts (Negative) LPF Urine Mucus (Negative) Ur Culture Indicated? Urine Glucose (Negative) mg/dL Stool Campylobacter PCR (Negative) Stl C.difficile Tox PCR (Negative) Stool Salmonella PCR (Negative) Stool Shigella PCR (Negative) COVID-19 Source SARS-CoV-2 (PCR) (Negative) Influenza Type A (PCR) (Negative) Influenza Type B (PCR) (Negative) Urine Legionella Ag (Negative) M. pneumoniae Source M. pneumoniae (PCR) RSV (PCR) (Negative) Shiga Toxin (PCR) (Negative) Ur Strep pneumoniae Ag (Negative) Add-On Test Request DONE Range/Units 04/11/22 04/11/22 04/11/22 00:44 01:00 01:50 WBC (4.4-10.8) 10^3/uL RBC (3.93-5.22) 10^6/uL Hgb (11.2-15.7) g/dL Hct (36.0-46.0) % MCV (80-95) fL MCH (27.0-33.0) pg MCHC (32.0-36.0) % RDW (11.7-14.6) % Plt Count (130-400) 10^3/uL MPV (8.0-11.0) fL Immature Gran % Neutrophils % Lymphocytes % Monocytes % Eosinophils % Basophils % Nucleated RBC % (0.0-0.3) % Absolute Neutrophils (1.2-6.7) 10^3/uL Absolute Lymphocytes (1.2-3.4) 10^3/uL Absolute Monocytes (0.1-0.8) 10^3/uL Absolute Eosinophils (0.0-0.7) 10^3/uL Absolute Basophils (0.0-0.2) 10^3/uL ABG Sample Site ABG pH (7.35-7.45) ABG pCO2 (35-45) mmHg ABG pO2 (80-105) mmHg ABG HCO3 (22-26) mmol/L ABG Total CO2 (23-27) mmol/L ABG O2 Saturation (95-98) % ABG Base Excess (-2-3) mmol/L VBG pH (7.31-7.41) VBG pCO2 (41-51) mmHg VBG pO2 mmHg VBG HCO3 VBG Total CO2 VBG O2 Saturation % VBG Base Excess VBG Lactate (0.6-1.4) mmol/L Oxygen Liter Flow L Sodium (136-145) mmol/L Potassium (3.5-5.1) mmol/L Chloride (98-107) mmol/L Carbon Dioxide (21.0-32.0) mmol/L Anion Gap (3-11) mmol/L BUN (7-18) mg/dL Creatinine (0.55-1.02) mg/dL Est GFR (CKD-EPI 2020) (mL/min/1.73m2) Glucose (74-106) mg/dL Calcium (8.5-10.1) mg/dL Phosphorus (2.6-4.7) mg/dL Magnesium (1.8-2.4) mg/dL 1.9 Total Bilirubin (0.2-1.0) mg/dL AST (15-37) U/L ALT (14-59) U/L Alkaline Phosphatase (46-116) U/L Troponin I (<or=60) ng/L C-Reactive Protein (0.0-0.3) mg/dL NT-Pro-B Natriuret Pep (<300) pg/mL Total Protein (6.4-8.2) g/dL Albumin (3.4-5.0) g/dL Procalcitonin ng/mL TSH (0.36-3.74) uIU/mL Free T4 (0.76-1.46) ng/dL Urine Color (Yellow) Yellow Urine Clarity (Clear) Sl Cloudy Urine pH (5-8) 6.0 Ur Specific Christine (1.005-1.025) >= 1.030 H Urine Protein (Negative) mg/dL >=300 H Urine Ketones (Negative) mg/dL 40 H Urine Blood (Negative) Small H Urine Nitrite (Negative) Negative Urine Bilirubin (Negative) Small H Urine Urobilinogen (Up TO 0.2) EU/dL 0.2 Ur Leukocyte Esterase (Negative) Negative Urine RBC (0-2) HPF 3-5 H Urine WBC (0-5) HPF 0-2 Ur Epithelial Cells (Negative) HPF Rare Urine Crystals (Negative) HPF Few Amorphous Urine Bacteria (Negative) HPF Few Urine Casts (Negative) LPF 5-10 Hyaline Urine Mucus (Negative) Moderate Ur Culture Indicated? No Urine Glucose (Negative) mg/dL Negative Stool Campylobacter PCR (Negative) Stl C.difficile Tox PCR (Negative) Stool Salmonella PCR (Negative) Stool Shigella PCR (Negative) COVID-19 Source Nasopharynx SARS-CoV-2 (PCR) (Negative) Negative Influenza Type A (PCR) (Negative) Positive A Influenza Type B (PCR) (Negative) Negative Urine Legionella Ag (Negative) M. pneumoniae Source M. pneumoniae (PCR) RSV (PCR) (Negative) Negative Shiga Toxin (PCR) (Negative) Ur Strep pneumoniae Ag (Negative) Add-On Test Request Range/Units 04/11/22 04/11/22 04/11/22 01:59 05:42 05:42 WBC (4.4-10.8) 10^3/uL RBC (3.93-5.22) 10^6/uL Hgb (11.2-15.7) g/dL Hct (36.0-46.0) % MCV (80-95) fL MCH (27.0-33.0) pg MCHC (32.0-36.0) % RDW (11.7-14.6) % Plt Count (130-400) 10^3/uL MPV (8.0-11.0) fL Immature Gran % Neutrophils % Lymphocytes % Monocytes % Eosinophils % Basophils % Nucleated RBC % (0.0-0.3) % Absolute Neutrophils (1.2-6.7) 10^3/uL Absolute Lymphocytes (1.2-3.4) 10^3/uL Absolute Monocytes (0.1-0.8) 10^3/uL Absolute Eosinophils (0.0-0.7) 10^3/uL Absolute Basophils (0.0-0.2) 10^3/uL ABG Sample Site ABG pH (7.35-7.45) ABG pCO2 (35-45) mmHg ABG pO2 (80-105) mmHg ABG HCO3 (22-26) mmol/L ABG Total CO2 (23-27) mmol/L ABG O2 Saturation (95-98) % ABG Base Excess (-2-3) mmol/L VBG pH (7.31-7.41) 7.26 L 7.31 VBG pCO2 (41-51) mmHg > 100 H* 86 H* VBG pO2 mmHg 82 65 VBG HCO3 Not Applicable 44 H VBG Total CO2 Not Applicable 40 H VBG O2 Saturation % 95 93 VBG Base Excess Not Applicable > 15 H VBG Lactate (0.6-1.4) mmol/L Oxygen Liter Flow L Sodium (136-145) mmol/L Potassium (3.5-5.1) mmol/L Chloride (98-107) mmol/L Carbon Dioxide (21.0-32.0) mmol/L Anion Gap (3-11) mmol/L BUN (7-18) mg/dL Creatinine (0.55-1.02) mg/dL Est GFR (CKD-EPI 2020) (mL/min/1.73m2) Glucose (74-106) mg/dL Calcium (8.5-10.1) mg/dL Phosphorus (2.6-4.7) mg/dL Magnesium (1.8-2.4) mg/dL Total Bilirubin (0.2-1.0) mg/dL AST (15-37) U/L ALT (14-59) U/L Alkaline Phosphatase (46-116) U/L Troponin I (<or=60) ng/L C-Reactive Protein (0.0-0.3) mg/dL NT-Pro-B Natriuret Pep (<300) pg/mL Total Protein (6.4-8.2) g/dL Albumin (3.4-5.0) g/dL Procalcitonin ng/mL TSH (0.36-3.74) uIU/mL Free T4 (0.76-1.46) ng/dL Urine Color (Yellow) Urine Clarity (Clear) Urine pH (5-8) Ur Specific Christine (1.005-1.025) Urine Protein (Negative) mg/dL Urine Ketones (Negative) mg/dL Urine Blood (Negative) Urine Nitrite (Negative) Urine Bilirubin (Negative) Urine Urobilinogen (Up TO 0.2) EU/dL Ur Leukocyte Esterase (Negative) Urine RBC (0-2) HPF Urine WBC (0-5) HPF Ur Epithelial Cells (Negative) HPF Urine Crystals (Negative) HPF Urine Bacteria (Negative) HPF Urine Casts (Negative) LPF Urine Mucus (Negative) Ur Culture Indicated? Urine Glucose (Negative) mg/dL Stool Campylobacter PCR (Negative) Stl C.difficile Tox PCR (Negative) Stool Salmonella PCR (Negative) Stool Shigella PCR (Negative) COVID-19 Source SARS-CoV-2 (PCR) (Negative) Influenza Type A (PCR) (Negative) Influenza Type B (PCR) (Negative) Urine Legionella Ag (Negative) M. pneumoniae Source M. pneumoniae (PCR) RSV (PCR) (Negative) Shiga Toxin (PCR) (Negative) Ur Strep pneumoniae Ag (Negative) Add-On Test Request DONE Range/Units 04/11/22 04/11/22 04/11/22 05:42 10:00 12:40 WBC (4.4-10.8) 10^3/uL RBC (3.93-5.22) 10^6/uL Hgb (11.2-15.7) g/dL Hct (36.0-46.0) % MCV (80-95) fL MCH (27.0-33.0) pg MCHC (32.0-36.0) % RDW (11.7-14.6) % Plt Count (130-400) 10^3/uL MPV (8.0-11.0) fL Immature Gran % Neutrophils % Lymphocytes % Monocytes % Eosinophils % Basophils % Nucleated RBC % (0.0-0.3) % Absolute Neutrophils (1.2-6.7) 10^3/uL Absolute Lymphocytes (1.2-3.4) 10^3/uL Absolute Monocytes (0.1-0.8) 10^3/uL Absolute Eosinophils (0.0-0.7) 10^3/uL Absolute Basophils (0.0-0.2) 10^3/uL ABG Sample Site ABG pH (7.35-7.45) ABG pCO2 (35-45) mmHg ABG pO2 (80-105) mmHg ABG HCO3 (22-26) mmol/L ABG Total CO2 (23-27) mmol/L ABG O2 Saturation (95-98) % ABG Base Excess (-2-3) mmol/L VBG pH (7.31-7.41) VBG pCO2 (41-51) mmHg VBG pO2 mmHg VBG HCO3 VBG Total CO2 VBG O2 Saturation % VBG Base Excess VBG Lactate (0.6-1.4) mmol/L Oxygen Liter Flow L Sodium (136-145) mmol/L Potassium (3.5-5.1) mmol/L Chloride (98-107) mmol/L Carbon Dioxide (21.0-32.0) mmol/L Anion Gap (3-11) mmol/L BUN (7-18) mg/dL Creatinine (0.55-1.02) mg/dL Est GFR (CKD-EPI 2020) (mL/min/1.73m2) Glucose (74-106) mg/dL Calcium (8.5-10.1) mg/dL Phosphorus (2.6-4.7) mg/dL Magnesium (1.8-2.4) mg/dL Total Bilirubin (0.2-1.0) mg/dL AST (15-37) U/L ALT (14-59) U/L Alkaline Phosphatase (46-116) U/L Troponin I (<or=60) ng/L C-Reactive Protein (0.0-0.3) mg/dL NT-Pro-B Natriuret Pep (<300) pg/mL Total Protein (6.4-8.2) g/dL Albumin (3.4-5.0) g/dL Procalcitonin ng/mL 0.6 TSH (0.36-3.74) uIU/mL Free T4 (0.76-1.46) ng/dL Urine Color (Yellow) Urine Clarity (Clear) Urine pH (5-8) Ur Specific Christine (1.005-1.025) Urine Protein (Negative) mg/dL Urine Ketones (Negative) mg/dL Urine Blood (Negative) Urine Nitrite (Negative) Urine Bilirubin (Negative) Urine Urobilinogen (Up TO 0.2) EU/dL Ur Leukocyte Esterase (Negative) Urine RBC (0-2) HPF Urine WBC (0-5) HPF Ur Epithelial Cells (Negative) HPF Urine Crystals (Negative) HPF Urine Bacteria (Negative) HPF Urine Casts (Negative) LPF Urine Mucus (Negative) Ur Culture Indicated? Urine Glucose (Negative) mg/dL Stool Campylobacter PCR (Negative) Stl C.difficile Tox PCR (Negative) Stool Salmonella PCR (Negative) Stool Shigella PCR (Negative) COVID-19 Source SARS-CoV-2 (PCR) (Negative) Influenza Type A (PCR) (Negative) Influenza Type B (PCR) (Negative) Urine Legionella Ag (Negative) Negative M. pneumoniae Source M. pneumoniae (PCR) RSV (PCR) (Negative) Shiga Toxin (PCR) (Negative) Ur Strep pneumoniae Ag (Negative) Positive A Add-On Test Request Range/Units 04/11/22 04/12/22 04/12/22 12:57 04:35 04:35 WBC (4.4-10.8) 10^3/uL 12.19 H RBC (3.93-5.22) 10^6/uL 4.09 Hgb (11.2-15.7) g/dL 11.9 D Hct (36.0-46.0) % 39.4 MCV (80-95) fL 96 H MCH (27.0-33.0) pg 29.1 MCHC (32.0-36.0) % 30.2 L RDW (11.7-14.6) % 13.4 Plt Count (130-400) 10^3/uL 223 MPV (8.0-11.0) fL 9.5 Immature Gran % 0.4 Neutrophils % 91.5 Lymphocytes % 3.4 Monocytes % 4.6 Eosinophils % 0.0 Basophils % 0.1 Nucleated RBC % (0.0-0.3) % 0.0 Absolute Neutrophils (1.2-6.7) 10^3/uL 11.15 H Absolute Lymphocytes (1.2-3.4) 10^3/uL 0.41 L Absolute Monocytes (0.1-0.8) 10^3/uL 0.56 Absolute Eosinophils (0.0-0.7) 10^3/uL 0.00 Absolute Basophils (0.0-0.2) 10^3/uL 0.01 ABG Sample Site ABG pH (7.35-7.45) ABG pCO2 (35-45) mmHg ABG pO2 (80-105) mmHg ABG HCO3 (22-26) mmol/L ABG Total CO2 (23-27) mmol/L ABG O2 Saturation (95-98) % ABG Base Excess (-2-3) mmol/L VBG pH (7.31-7.41) VBG pCO2 (41-51) mmHg VBG pO2 mmHg VBG HCO3 VBG Total CO2 VBG O2 Saturation % VBG Base Excess VBG Lactate (0.6-1.4) mmol/L Oxygen Liter Flow L Sodium (136-145) mmol/L 144 Potassium (3.5-5.1) mmol/L 3.4 L Chloride (98-107) mmol/L 99 Carbon Dioxide (21.0-32.0) mmol/L > 45.0 H Anion Gap (3-11) mmol/L -0.39802 L BUN (7-18) mg/dL 26 H Creatinine (0.55-1.02) mg/dL 1.7 H D Est GFR (CKD-EPI 2020) (mL/min/1.73m2) 30.89 Glucose (74-106) mg/dL 148 H Calcium (8.5-10.1) mg/dL 8.9 Phosphorus (2.6-4.7) mg/dL 3.9 Magnesium (1.8-2.4) mg/dL 2.9 H Total Bilirubin (0.2-1.0) mg/dL AST (15-37) U/L ALT (14-59) U/L Alkaline Phosphatase (46-116) U/L Troponin I (<or=60) ng/L C-Reactive Protein (0.0-0.3) mg/dL NT-Pro-B Natriuret Pep (<300) pg/mL Total Protein (6.4-8.2) g/dL Albumin (3.4-5.0) g/dL Procalcitonin ng/mL TSH (0.36-3.74) uIU/mL Free T4 (0.76-1.46) ng/dL Urine Color (Yellow) Urine Clarity (Clear) Urine pH (5-8) Ur Specific Christine (1.005-1.025) Urine Protein (Negative) mg/dL Urine Ketones (Negative) mg/dL Urine Blood (Negative) Urine Nitrite (Negative) Urine Bilirubin (Negative) Urine Urobilinogen (Up TO 0.2) EU/dL Ur Leukocyte Esterase (Negative) Urine RBC (0-2) HPF Urine WBC (0-5) HPF Ur Epithelial Cells (Negative) HPF Urine Crystals (Negative) HPF Urine Bacteria (Negative) HPF Urine Casts (Negative) LPF Urine Mucus (Negative) Ur Culture Indicated? Urine Glucose (Negative) mg/dL Stool Campylobacter PCR (Negative) Stl C.difficile Tox PCR (Negative) Stool Salmonella PCR (Negative) Stool Shigella PCR (Negative) COVID-19 Source SARS-CoV-2 (PCR) (Negative) Influenza Type A (PCR) (Negative) Influenza Type B (PCR) (Negative) Urine Legionella Ag (Negative) M. pneumoniae Source Cancelled M. pneumoniae (PCR) Cancelled RSV (PCR) (Negative) Shiga Toxin (PCR) (Negative) Ur Strep pneumoniae Ag (Negative) Add-On Test Request Range/Units 04/12/22 04/12/22 04/13/22 14:30 14:30 04:51 WBC (4.4-10.8) 10^3/uL RBC (3.93-5.22) 10^6/uL Hgb (11.2-15.7) g/dL Hct (36.0-46.0) % MCV (80-95) fL MCH (27.0-33.0) pg MCHC (32.0-36.0) % RDW (11.7-14.6) % Plt Count (130-400) 10^3/uL MPV (8.0-11.0) fL Immature Gran % Neutrophils % Lymphocytes % Monocytes % Eosinophils % Basophils % Nucleated RBC % (0.0-0.3) % Absolute Neutrophils (1.2-6.7) 10^3/uL Absolute Lymphocytes (1.2-3.4) 10^3/uL Absolute Monocytes (0.1-0.8) 10^3/uL Absolute Eosinophils (0.0-0.7) 10^3/uL Absolute Basophils (0.0-0.2) 10^3/uL ABG Sample Site ABG pH (7.35-7.45) ABG pCO2 (35-45) mmHg ABG pO2 (80-105) mmHg ABG HCO3 (22-26) mmol/L ABG Total CO2 (23-27) mmol/L ABG O2 Saturation (95-98) % ABG Base Excess (-2-3) mmol/L VBG pH (7.31-7.41) VBG pCO2 (41-51) mmHg VBG pO2 mmHg VBG HCO3 VBG Total CO2 VBG O2 Saturation % VBG Base Excess VBG Lactate (0.6-1.4) mmol/L Oxygen Liter Flow L Sodium (136-145) mmol/L 139 Potassium (3.5-5.1) mmol/L 3.8 Chloride (98-107) mmol/L 100 Carbon Dioxide (21.0-32.0) mmol/L 38.6 H Anion Gap (3-11) mmol/L 0.4 L BUN (7-18) mg/dL 33 H Creatinine (0.55-1.02) mg/dL 1.9 H Est GFR (CKD-EPI 2020) (mL/min/1.73m2) 27.03 Glucose (74-106) mg/dL 112 H Calcium (8.5-10.1) mg/dL 9.1 Phosphorus (2.6-4.7) mg/dL Magnesium (1.8-2.4) mg/dL 2.5 H Total Bilirubin (0.2-1.0) mg/dL AST (15-37) U/L ALT (14-59) U/L Alkaline Phosphatase (46-116) U/L Troponin I (<or=60) ng/L C-Reactive Protein (0.0-0.3) mg/dL NT-Pro-B Natriuret Pep (<300) pg/mL Total Protein (6.4-8.2) g/dL Albumin (3.4-5.0) g/dL Procalcitonin ng/mL TSH (0.36-3.74) uIU/mL Free T4 (0.76-1.46) ng/dL Urine Color (Yellow) Urine Clarity (Clear) Urine pH (5-8) Ur Specific Christine (1.005-1.025) Urine Protein (Negative) mg/dL Urine Ketones (Negative) mg/dL Urine Blood (Negative) Urine Nitrite (Negative) Urine Bilirubin (Negative) Urine Urobilinogen (Up TO 0.2) EU/dL Ur Leukocyte Esterase (Negative) Urine RBC (0-2) HPF Urine WBC (0-5) HPF Ur Epithelial Cells (Negative) HPF Urine Crystals (Negative) HPF Urine Bacteria (Negative) HPF Urine Casts (Negative) LPF Urine Mucus (Negative) Ur Culture Indicated? Urine Glucose (Negative) mg/dL Stool Campylobacter PCR (Negative) Negative Stl C.difficile Tox PCR (Negative) Positive A Stool Salmonella PCR (Negative) Negative Stool Shigella PCR (Negative) Negative COVID-19 Source SARS-CoV-2 (PCR) (Negative) Influenza Type A (PCR) (Negative) Influenza Type B (PCR) (Negative) Urine Legionella Ag (Negative) M. pneumoniae Source M. pneumoniae (PCR) RSV (PCR) (Negative) Shiga Toxin (PCR) (Negative) Negative Ur Strep pneumoniae Ag (Negative) Add-On Test Request Range/Units 04/13/22 04/13/22 04/13/22 04:51 04:51 04:51 WBC (4.4-10.8) 10^3/uL 14.32 H RBC (3.93-5.22) 10^6/uL 3.92 L Hgb (11.2-15.7) g/dL 11.5 Hct (36.0-46.0) % 37.7 MCV (80-95) fL 96 H MCH (27.0-33.0) pg 29.3 MCHC (32.0-36.0) % 30.5 L RDW (11.7-14.6) % 13.3 Plt Count (130-400) 10^3/uL 250 MPV (8.0-11.0) fL 9.5 Immature Gran % 0.4 Neutrophils % 88.0 Lymphocytes % 5.8 Monocytes % 5.7 Eosinophils % 0.0 Basophils % 0.1 Nucleated RBC % (0.0-0.3) % 0.0 Absolute Neutrophils (1.2-6.7) 10^3/uL 12.60 H Absolute Lymphocytes (1.2-3.4) 10^3/uL 0.83 L Absolute Monocytes (0.1-0.8) 10^3/uL 0.82 H Absolute Eosinophils (0.0-0.7) 10^3/uL 0.00 Absolute Basophils (0.0-0.2) 10^3/uL 0.01 ABG Sample Site ABG pH (7.35-7.45) ABG pCO2 (35-45) mmHg ABG pO2 (80-105) mmHg ABG HCO3 (22-26) mmol/L ABG Total CO2 (23-27) mmol/L ABG O2 Saturation (95-98) % ABG Base Excess (-2-3) mmol/L VBG pH (7.31-7.41) VBG pCO2 (41-51) mmHg VBG pO2 mmHg VBG HCO3 VBG Total CO2 VBG O2 Saturation % VBG Base Excess VBG Lactate (0.6-1.4) mmol/L Oxygen Liter Flow L Sodium (136-145) mmol/L Potassium (3.5-5.1) mmol/L Chloride (98-107) mmol/L Carbon Dioxide (21.0-32.0) mmol/L Anion Gap (3-11) mmol/L BUN (7-18) mg/dL Creatinine (0.55-1.02) mg/dL Est GFR (CKD-EPI 2020) (mL/min/1.73m2) Glucose (74-106) mg/dL Calcium (8.5-10.1) mg/dL Phosphorus (2.6-4.7) mg/dL Magnesium (1.8-2.4) mg/dL Total Bilirubin (0.2-1.0) mg/dL AST (15-37) U/L ALT (14-59) U/L Alkaline Phosphatase (46-116) U/L Troponin I (<or=60) ng/L C-Reactive Protein (0.0-0.3) mg/dL NT-Pro-B Natriuret Pep (<300) pg/mL Total Protein (6.4-8.2) g/dL Albumin (3.4-5.0) g/dL Procalcitonin ng/mL 0.8 TSH (0.36-3.74) uIU/mL Free T4 (0.76-1.46) ng/dL Urine Color (Yellow) Urine Clarity (Clear) Urine pH (5-8) Ur Specific Christine (1.005-1.025) Urine Protein (Negative) mg/dL Urine Ketones (Negative) mg/dL Urine Blood (Negative) Urine Nitrite (Negative) Urine Bilirubin (Negative) Urine Urobilinogen (Up TO 0.2) EU/dL Ur Leukocyte Esterase (Negative) Urine RBC (0-2) HPF Urine WBC (0-5) HPF Ur Epithelial Cells (Negative) HPF Urine Crystals (Negative) HPF Urine Bacteria (Negative) HPF Urine Casts (Negative) LPF Urine Mucus (Negative) Ur Culture Indicated? Urine Glucose (Negative) mg/dL Stool Campylobacter PCR (Negative) Stl C.difficile Tox PCR (Negative) Stool Salmonella PCR (Negative) Stool Shigella PCR (Negative) COVID-19 Source SARS-CoV-2 (PCR) (Negative) Influenza Type A (PCR) (Negative) Influenza Type B (PCR) (Negative) Urine Legionella Ag (Negative) M. pneumoniae Source M. pneumoniae (PCR) RSV (PCR) (Negative) Shiga Toxin (PCR) (Negative) Ur Strep pneumoniae Ag (Negative) Add-On Test Request DONE Range/Units 04/13/22 04/14/22 04/14/22 04:51 05:30 05:30 WBC (4.4-10.8) 10^3/uL 10.94 H RBC (3.93-5.22) 10^6/uL 4.08 Hgb (11.2-15.7) g/dL 11.9 Hct (36.0-46.0) % 39.7 MCV (80-95) fL 97 H MCH (27.0-33.0) pg 29.2 MCHC (32.0-36.0) % 30.0 L RDW (11.7-14.6) % 13.5 Plt Count (130-400) 10^3/uL 252 MPV (8.0-11.0) fL 9.3 Immature Gran % 0.7 Neutrophils % 84.9 Lymphocytes % 6.9 Monocytes % 7.3 Eosinophils % 0.0 Basophils % 0.2 Nucleated RBC % (0.0-0.3) % 0.0 Absolute Neutrophils (1.2-6.7) 10^3/uL 9.29 H Absolute Lymphocytes (1.2-3.4) 10^3/uL 0.75 L Absolute Monocytes (0.1-0.8) 10^3/uL 0.80 Absolute Eosinophils (0.0-0.7) 10^3/uL 0.00 Absolute Basophils (0.0-0.2) 10^3/uL 0.02 ABG Sample Site ABG pH (7.35-7.45) ABG pCO2 (35-45) mmHg ABG pO2 (80-105) mmHg ABG HCO3 (22-26) mmol/L ABG Total CO2 (23-27) mmol/L ABG O2 Saturation (95-98) % ABG Base Excess (-2-3) mmol/L VBG pH (7.31-7.41) VBG pCO2 (41-51) mmHg VBG pO2 mmHg VBG HCO3 VBG Total CO2 VBG O2 Saturation % VBG Base Excess VBG Lactate (0.6-1.4) mmol/L Oxygen Liter Flow L Sodium (136-145) mmol/L 141 Potassium (3.5-5.1) mmol/L 3.6 Chloride (98-107) mmol/L 104 Carbon Dioxide (21.0-32.0) mmol/L 36.5 H Anion Gap (3-11) mmol/L 0.5 L BUN (7-18) mg/dL 29 H Creatinine (0.55-1.02) mg/dL 1.8 H Est GFR (CKD-EPI 2020) (mL/min/1.73m2) 28.84 Glucose (74-106) mg/dL 107 H Calcium (8.5-10.1) mg/dL 9.2 Phosphorus (2.6-4.7) mg/dL Magnesium (1.8-2.4) mg/dL 2.4 Total Bilirubin (0.2-1.0) mg/dL AST (15-37) U/L ALT (14-59) U/L Alkaline Phosphatase (46-116) U/L Troponin I (<or=60) ng/L C-Reactive Protein (0.0-0.3) mg/dL 6.99 H 3.34 H NT-Pro-B Natriuret Pep (<300) pg/mL Total Protein (6.4-8.2) g/dL Albumin (3.4-5.0) g/dL Procalcitonin ng/mL TSH (0.36-3.74) uIU/mL Free T4 (0.76-1.46) ng/dL Urine Color (Yellow) Urine Clarity (Clear) Urine pH (5-8) Ur Specific Christine (1.005-1.025) Urine Protein (Negative) mg/dL Urine Ketones (Negative) mg/dL Urine Blood (Negative) Urine Nitrite (Negative) Urine Bilirubin (Negative) Urine Urobilinogen (Up TO 0.2) EU/dL Ur Leukocyte Esterase (Negative) Urine RBC (0-2) HPF Urine WBC (0-5) HPF Ur Epithelial Cells (Negative) HPF Urine Crystals (Negative) HPF Urine Bacteria (Negative) HPF Urine Casts (Negative) LPF Urine Mucus (Negative) Ur Culture Indicated? Urine Glucose (Negative) mg/dL Stool Campylobacter PCR (Negative) Stl C.difficile Tox PCR (Negative) Stool Salmonella PCR (Negative) Stool Shigella PCR (Negative) COVID-19 Source SARS-CoV-2 (PCR) (Negative) Influenza Type A (PCR) (Negative) Influenza Type B (PCR) (Negative) Urine Legionella Ag (Negative) M. pneumoniae Source M. pneumoniae (PCR) RSV (PCR) (Negative) Shiga Toxin (PCR) (Negative) Ur Strep pneumoniae Ag (Negative) Add-On Test Request Range/Units 04/15/22 04/15/22 04/16/22 05:40 05:40 05:25 WBC (4.4-10.8) 10^3/uL 7.87 RBC (3.93-5.22) 10^6/uL 4.18 Hgb (11.2-15.7) g/dL 12.1 Hct (36.0-46.0) % 40.3 MCV (80-95) fL 96 H MCH (27.0-33.0) pg 28.9 MCHC (32.0-36.0) % 30.0 L RDW (11.7-14.6) % 13.4 Plt Count (130-400) 10^3/uL 265 MPV (8.0-11.0) fL 9.1 Immature Gran % 0.4 Neutrophils % 78.6 Lymphocytes % 10.9 Monocytes % 9.9 Eosinophils % 0.1 Basophils % 0.1 Nucleated RBC % (0.0-0.3) % 0.0 Absolute Neutrophils (1.2-6.7) 10^3/uL 6.18 Absolute Lymphocytes (1.2-3.4) 10^3/uL 0.86 L Absolute Monocytes (0.1-0.8) 10^3/uL 0.78 Absolute Eosinophils (0.0-0.7) 10^3/uL 0.01 Absolute Basophils (0.0-0.2) 10^3/uL 0.01 ABG Sample Site ABG pH (7.35-7.45) ABG pCO2 (35-45) mmHg ABG pO2 (80-105) mmHg ABG HCO3 (22-26) mmol/L ABG Total CO2 (23-27) mmol/L ABG O2 Saturation (95-98) % ABG Base Excess (-2-3) mmol/L VBG pH (7.31-7.41) VBG pCO2 (41-51) mmHg VBG pO2 mmHg VBG HCO3 VBG Total CO2 VBG O2 Saturation % VBG Base Excess VBG Lactate (0.6-1.4) mmol/L Oxygen Liter Flow L Sodium (136-145) mmol/L 143 140 Potassium (3.5-5.1) mmol/L 4.0 3.8 Chloride (98-107) mmol/L 105 103 Carbon Dioxide (21.0-32.0) mmol/L 36.8 H 37.3 H Anion Gap (3-11) mmol/L 1.2 L -0.3 L BUN (7-18) mg/dL 23 H 21 H Creatinine (0.55-1.02) mg/dL 1.7 H 1.5 H Est GFR (CKD-EPI 2020) (mL/min/1.73m2) 30.89 35.89 Glucose (74-106) mg/dL 99 98 Calcium (8.5-10.1) mg/dL 9.2 9.0 Phosphorus (2.6-4.7) mg/dL Magnesium (1.8-2.4) mg/dL 2.2 1.8 Total Bilirubin (0.2-1.0) mg/dL 0.3 AST (15-37) U/L 22 ALT (14-59) U/L 11 L Alkaline Phosphatase (46-116) U/L 76 Troponin I (<or=60) ng/L C-Reactive Protein (0.0-0.3) mg/dL 2.16 H NT-Pro-B Natriuret Pep (<300) pg/mL Total Protein (6.4-8.2) g/dL 5.9 L Albumin (3.4-5.0) g/dL 2.3 L Procalcitonin ng/mL TSH (0.36-3.74) uIU/mL Free T4 (0.76-1.46) ng/dL Urine Color (Yellow) Urine Clarity (Clear) Urine pH (5-8) Ur Specific Christine (1.005-1.025) Urine Protein (Negative) mg/dL Urine Ketones (Negative) mg/dL Urine Blood (Negative) Urine Nitrite (Negative) Urine Bilirubin (Negative) Urine Urobilinogen (Up TO 0.2) EU/dL Ur Leukocyte Esterase (Negative) Urine RBC (0-2) HPF Urine WBC (0-5) HPF Ur Epithelial Cells (Negative) HPF Urine Crystals (Negative) HPF Urine Bacteria (Negative) HPF Urine Casts (Negative) LPF Urine Mucus (Negative) Ur Culture Indicated? Urine Glucose (Negative) mg/dL Stool Campylobacter PCR (Negative) Stl C.difficile Tox PCR (Negative) Stool Salmonella PCR (Negative) Stool Shigella PCR (Negative) COVID-19 Source SARS-CoV-2 (PCR) (Negative) Influenza Type A (PCR) (Negative) Influenza Type B (PCR) (Negative) Urine Legionella Ag (Negative) M. pneumoniae Source M. pneumoniae (PCR) RSV (PCR) (Negative) Shiga Toxin (PCR) (Negative) Ur Strep pneumoniae Ag (Negative) Add-On Test Request Range/Units 04/16/22 04/16/22 04/18/22 05:25 05:25 05:38 WBC (4.4-10.8) 10^3/uL 7.42 RBC (3.93-5.22) 10^6/uL 4.09 Hgb (11.2-15.7) g/dL 12.1 Hct (36.0-46.0) % 38.9 MCV (80-95) fL 95 MCH (27.0-33.0) pg 29.6 MCHC (32.0-36.0) % 31.1 L RDW (11.7-14.6) % 13.5 Plt Count (130-400) 10^3/uL 252 MPV (8.0-11.0) fL 9.0 Immature Gran % 0.9 Neutrophils % 71.7 Lymphocytes % 15.2 Monocytes % 11.2 Eosinophils % 0.9 Basophils % 0.1 Nucleated RBC % (0.0-0.3) % 0.0 Absolute Neutrophils (1.2-6.7) 10^3/uL 5.31 Absolute Lymphocytes (1.2-3.4) 10^3/uL 1.13 L Absolute Monocytes (0.1-0.8) 10^3/uL 0.83 H Absolute Eosinophils (0.0-0.7) 10^3/uL 0.07 Absolute Basophils (0.0-0.2) 10^3/uL 0.01 ABG Sample Site ABG pH (7.35-7.45) ABG pCO2 (35-45) mmHg ABG pO2 (80-105) mmHg ABG HCO3 (22-26) mmol/L ABG Total CO2 (23-27) mmol/L ABG O2 Saturation (95-98) % ABG Base Excess (-2-3) mmol/L VBG pH (7.31-7.41) VBG pCO2 (41-51) mmHg VBG pO2 mmHg VBG HCO3 VBG Total CO2 VBG O2 Saturation % VBG Base Excess VBG Lactate (0.6-1.4) mmol/L Oxygen Liter Flow L Sodium (136-145) mmol/L 141 Potassium (3.5-5.1) mmol/L 4.3 Chloride (98-107) mmol/L 103 Carbon Dioxide (21.0-32.0) mmol/L 34.8 H Anion Gap (3-11) mmol/L 3.2 BUN (7-18) mg/dL 22 H Creatinine (0.55-1.02) mg/dL 1.3 H Est GFR (CKD-EPI 2020) (mL/min/1.73m2) 42.62 Glucose (74-106) mg/dL 106 Calcium (8.5-10.1) mg/dL 9.2 Phosphorus (2.6-4.7) mg/dL Magnesium (1.8-2.4) mg/dL Total Bilirubin (0.2-1.0) mg/dL 0.3 AST (15-37) U/L 16 ALT (14-59) U/L 9 L Alkaline Phosphatase (46-116) U/L 70 Troponin I (<or=60) ng/L C-Reactive Protein (0.0-0.3) mg/dL NT-Pro-B Natriuret Pep (<300) pg/mL Total Protein (6.4-8.2) g/dL 6.0 L Albumin (3.4-5.0) g/dL 2.5 L Procalcitonin ng/mL 0.2 TSH (0.36-3.74) uIU/mL Free T4 (0.76-1.46) ng/dL Urine Color (Yellow) Urine Clarity (Clear) Urine pH (5-8) Ur Specific Christine (1.005-1.025) Urine Protein (Negative) mg/dL Urine Ketones (Negative) mg/dL Urine Blood (Negative) Urine Nitrite (Negative) Urine Bilirubin (Negative) Urine Urobilinogen (Up TO 0.2) EU/dL Ur Leukocyte Esterase (Negative) Urine RBC (0-2) HPF Urine WBC (0-5) HPF Ur Epithelial Cells (Negative) HPF Urine Crystals (Negative) HPF Urine Bacteria (Negative) HPF Urine Casts (Negative) LPF Urine Mucus (Negative) Ur Culture Indicated? Urine Glucose (Negative) mg/dL Stool Campylobacter PCR (Negative) Stl C.difficile Tox PCR (Negative) Stool Salmonella PCR (Negative) Stool Shigella PCR (Negative) COVID-19 Source SARS-CoV-2 (PCR) (Negative) Influenza Type A (PCR) (Negative) Influenza Type B (PCR) (Negative) Urine Legionella Ag (Negative) M. pneumoniae Source M. pneumoniae (PCR) RSV (PCR) (Negative) Shiga Toxin (PCR) (Negative) Ur Strep pneumoniae Ag (Negative) Add-On Test Request Range/Units 04/18/22 04/18/22 04/18/22 05:38 05:38 05:38 WBC (4.4-10.8) 10^3/uL 8.24 RBC (3.93-5.22) 10^6/uL 4.05 Hgb (11.2-15.7) g/dL 11.8 Hct (36.0-46.0) % 37.5 MCV (80-95) fL 93 MCH (27.0-33.0) pg 29.1 MCHC (32.0-36.0) % 31.5 L RDW (11.7-14.6) % 13.6 Plt Count (130-400) 10^3/uL 269 MPV (8.0-11.0) fL 9.2 Immature Gran % 1.1 Neutrophils % 75.3 Lymphocytes % 12.4 Monocytes % 10.4 Eosinophils % 0.7 Basophils % 0.1 Nucleated RBC % (0.0-0.3) % 0.0 Absolute Neutrophils (1.2-6.7) 10^3/uL 6.20 Absolute Lymphocytes (1.2-3.4) 10^3/uL 1.02 L Absolute Monocytes (0.1-0.8) 10^3/uL 0.86 H Absolute Eosinophils (0.0-0.7) 10^3/uL 0.06 Absolute Basophils (0.0-0.2) 10^3/uL 0.01 ABG Sample Site ABG pH (7.35-7.45) ABG pCO2 (35-45) mmHg ABG pO2 (80-105) mmHg ABG HCO3 (22-26) mmol/L ABG Total CO2 (23-27) mmol/L ABG O2 Saturation (95-98) % ABG Base Excess (-2-3) mmol/L VBG pH (7.31-7.41) 7.51 H VBG pCO2 (41-51) mmHg 46 VBG pO2 mmHg 114 VBG HCO3 36 H VBG Total CO2 VBG O2 Saturation % > 99 VBG Base Excess 13 H VBG Lactate (0.6-1.4) mmol/L Oxygen Liter Flow L Sodium (136-145) mmol/L Potassium (3.5-5.1) mmol/L Chloride (98-107) mmol/L Carbon Dioxide (21.0-32.0) mmol/L Anion Gap (3-11) mmol/L BUN (7-18) mg/dL Creatinine (0.55-1.02) mg/dL Est GFR (CKD-EPI 2020) (mL/min/1.73m2) Glucose (74-106) mg/dL Calcium (8.5-10.1) mg/dL Phosphorus (2.6-4.7) mg/dL Magnesium (1.8-2.4) mg/dL Total Bilirubin (0.2-1.0) mg/dL AST (15-37) U/L ALT (14-59) U/L Alkaline Phosphatase (46-116) U/L Troponin I (<or=60) ng/L C-Reactive Protein (0.0-0.3) mg/dL NT-Pro-B Natriuret Pep (<300) pg/mL Total Protein (6.4-8.2) g/dL Albumin (3.4-5.0) g/dL Procalcitonin ng/mL 0.1 TSH (0.36-3.74) uIU/mL Free T4 (0.76-1.46) ng/dL Urine Color (Yellow) Urine Clarity (Clear) Urine pH (5-8) Ur Specific Christine (1.005-1.025) Urine Protein (Negative) mg/dL Urine Ketones (Negative) mg/dL Urine Blood (Negative) Urine Nitrite (Negative) Urine Bilirubin (Negative) Urine Urobilinogen (Up TO 0.2) EU/dL Ur Leukocyte Esterase (Negative) Urine RBC (0-2) HPF Urine WBC (0-5) HPF Ur Epithelial Cells (Negative) HPF Urine Crystals (Negative) HPF Urine Bacteria (Negative) HPF Urine Casts (Negative) LPF Urine Mucus (Negative) Ur Culture Indicated? Urine Glucose (Negative) mg/dL Stool Campylobacter PCR (Negative) Stl C.difficile Tox PCR (Negative) Stool Salmonella PCR (Negative) Stool Shigella PCR (Negative) COVID-19 Source SARS-CoV-2 (PCR) (Negative) Influenza Type A (PCR) (Negative) Influenza Type B (PCR) (Negative) Urine Legionella Ag (Negative) M. pneumoniae Source M. pneumoniae (PCR) RSV (PCR) (Negative) Shiga Toxin (PCR) (Negative) Ur Strep pneumoniae Ag (Negative) Add-On Test Request Range/Units 04/20/22 04/20/22 04/20/22 06:30 06:30 06:30 WBC (4.4-10.8) 10^3/uL 6.54 RBC (3.93-5.22) 10^6/uL 4.69 Hgb (11.2-15.7) g/dL 13.6 Hct (36.0-46.0) % 43.6 MCV (80-95) fL 93 MCH (27.0-33.0) pg 29.0 MCHC (32.0-36.0) % 31.2 L RDW (11.7-14.6) % 13.9 Plt Count (130-400) 10^3/uL 281 MPV (8.0-11.0) fL 8.8 Immature Gran % 0.6 Neutrophils % 74.7 Lymphocytes % 14.5 Monocytes % 9.8 Eosinophils % 0.2 Basophils % 0.2 Nucleated RBC % (0.0-0.3) % 0.0 Absolute Neutrophils (1.2-6.7) 10^3/uL 4.89 Absolute Lymphocytes (1.2-3.4) 10^3/uL 0.95 L Absolute Monocytes (0.1-0.8) 10^3/uL 0.64 Absolute Eosinophils (0.0-0.7) 10^3/uL 0.01 Absolute Basophils (0.0-0.2) 10^3/uL 0.01 ABG Sample Site ABG pH (7.35-7.45) ABG pCO2 (35-45) mmHg ABG pO2 (80-105) mmHg ABG HCO3 (22-26) mmol/L ABG Total CO2 (23-27) mmol/L ABG O2 Saturation (95-98) % ABG Base Excess (-2-3) mmol/L VBG pH (7.31-7.41) VBG pCO2 (41-51) mmHg VBG pO2 mmHg VBG HCO3 VBG Total CO2 VBG O2 Saturation % VBG Base Excess VBG Lactate (0.6-1.4) mmol/L Oxygen Liter Flow L Sodium (136-145) mmol/L 142 Potassium (3.5-5.1) mmol/L 3.7 Chloride (98-107) mmol/L 103 Carbon Dioxide (21.0-32.0) mmol/L 36.0 H Anion Gap (3-11) mmol/L 3.0 BUN (7-18) mg/dL 37 H Creatinine (0.55-1.02) mg/dL 1.3 H Est GFR (CKD-EPI 2020) (mL/min/1.73m2) 42.62 Glucose (74-106) mg/dL 107 H Calcium (8.5-10.1) mg/dL 9.8 Phosphorus (2.6-4.7) mg/dL Magnesium (1.8-2.4) mg/dL Total Bilirubin (0.2-1.0) mg/dL AST (15-37) U/L ALT (14-59) U/L Alkaline Phosphatase (46-116) U/L Troponin I (<or=60) ng/L C-Reactive Protein (0.0-0.3) mg/dL 0.22 NT-Pro-B Natriuret Pep (<300) pg/mL Total Protein (6.4-8.2) g/dL Albumin (3.4-5.0) g/dL Procalcitonin ng/mL < 0.1 TSH (0.36-3.74) uIU/mL Free T4 (0.76-1.46) ng/dL Urine Color (Yellow) Urine Clarity (Clear) Urine pH (5-8) Ur Specific Christine (1.005-1.025) Urine Protein (Negative) mg/dL Urine Ketones (Negative) mg/dL Urine Blood (Negative) Urine Nitrite (Negative) Urine Bilirubin (Negative) Urine Urobilinogen (Up TO 0.2) EU/dL Ur Leukocyte Esterase (Negative) Urine RBC (0-2) HPF Urine WBC (0-5) HPF Ur Epithelial Cells (Negative) HPF Urine Crystals (Negative) HPF Urine Bacteria (Negative) HPF Urine Casts (Negative) LPF Urine Mucus (Negative) Ur Culture Indicated? Urine Glucose (Negative) mg/dL Stool Campylobacter PCR (Negative) Stl C.difficile Tox PCR (Negative) Stool Salmonella PCR (Negative) Stool Shigella PCR (Negative) COVID-19 Source SARS-CoV-2 (PCR) (Negative) Influenza Type A (PCR) (Negative) Influenza Type B (PCR) (Negative) Urine Legionella Ag (Negative) M. pneumoniae Source M. pneumoniae (PCR) RSV (PCR) (Negative) Shiga Toxin (PCR) (Negative) Ur Strep pneumoniae Ag (Negative) Add-On Test Request Range/Units 04/20/22 04/21/22 04/21/22 06:30 06:40 11:55 WBC (4.4-10.8) 10^3/uL RBC (3.93-5.22) 10^6/uL Hgb (11.2-15.7) g/dL Hct (36.0-46.0) % MCV (80-95) fL MCH (27.0-33.0) pg MCHC (32.0-36.0) % RDW (11.7-14.6) % Plt Count (130-400) 10^3/uL MPV (8.0-11.0) fL Immature Gran % Neutrophils % Lymphocytes % Monocytes % Eosinophils % Basophils % Nucleated RBC % (0.0-0.3) % Absolute Neutrophils (1.2-6.7) 10^3/uL Absolute Lymphocytes (1.2-3.4) 10^3/uL Absolute Monocytes (0.1-0.8) 10^3/uL Absolute Eosinophils (0.0-0.7) 10^3/uL Absolute Basophils (0.0-0.2) 10^3/uL ABG Sample Site Right Radial ABG pH (7.35-7.45) 7.39 ABG pCO2 (35-45) mmHg 51 H ABG pO2 (80-105) mmHg 51 L ABG HCO3 (22-26) mmol/L 31 H ABG Total CO2 (23-27) mmol/L 28 H ABG O2 Saturation (95-98) % 86 L ABG Base Excess (-2-3) mmol/L 6 H VBG pH (7.31-7.41) 7.37 VBG pCO2 (41-51) mmHg 65 H* VBG pO2 mmHg 24 VBG HCO3 37 H VBG Total CO2 34 H VBG O2 Saturation % 39 VBG Base Excess 12 H VBG Lactate (0.6-1.4) mmol/L Oxygen Liter Flow L 2 Sodium (136-145) mmol/L 140 Potassium (3.5-5.1) mmol/L 4.4 Chloride (98-107) mmol/L 105 Carbon Dioxide (21.0-32.0) mmol/L 31.8 Anion Gap (3-11) mmol/L 3.2 BUN (7-18) mg/dL 34 H Creatinine (0.55-1.02) mg/dL 1.2 H Est GFR (CKD-EPI 2020) (mL/min/1.73m2) 46.91 Glucose (74-106) mg/dL 125 H Calcium (8.5-10.1) mg/dL 9.2 Phosphorus (2.6-4.7) mg/dL Magnesium (1.8-2.4) mg/dL Total Bilirubin (0.2-1.0) mg/dL AST (15-37) U/L ALT (14-59) U/L Alkaline Phosphatase (46-116) U/L Troponin I (<or=60) ng/L C-Reactive Protein (0.0-0.3) mg/dL NT-Pro-B Natriuret Pep (<300) pg/mL Total Protein (6.4-8.2) g/dL Albumin (3.4-5.0) g/dL Procalcitonin ng/mL TSH (0.36-3.74) uIU/mL Free T4 (0.76-1.46) ng/dL Urine Color (Yellow) Urine Clarity (Clear) Urine pH (5-8) Ur Specific Christine (1.005-1.025) Urine Protein (Negative) mg/dL Urine Ketones (Negative) mg/dL Urine Blood (Negative) Urine Nitrite (Negative) Urine Bilirubin (Negative) Urine Urobilinogen (Up TO 0.2) EU/dL Ur Leukocyte Esterase (Negative) Urine RBC (0-2) HPF Urine WBC (0-5) HPF Ur Epithelial Cells (Negative) HPF Urine Crystals (Negative) HPF Urine Bacteria (Negative) HPF Urine Casts (Negative) LPF Urine Mucus (Negative) Ur Culture Indicated? Urine Glucose (Negative) mg/dL Stool Campylobacter PCR (Negative) Stl C.difficile Tox PCR (Negative) Stool Salmonella PCR (Negative) Stool Shigella PCR (Negative) COVID-19 Source SARS-CoV-2 (PCR) (Negative) Influenza Type A (PCR) (Negative) Influenza Type B (PCR) (Negative) Urine Legionella Ag (Negative) M. pneumoniae Source M. pneumoniae (PCR) RSV (PCR) (Negative) Shiga Toxin (PCR) (Negative) Ur Strep pneumoniae Ag (Negative) Add-On Test Request Range/Units 04/22/22 09:10 WBC (4.4-10.8) 10^3/uL RBC (3.93-5.22) 10^6/uL Hgb (11.2-15.7) g/dL Hct (36.0-46.0) % MCV (80-95) fL MCH (27.0-33.0) pg MCHC (32.0-36.0) % RDW (11.7-14.6) % Plt Count (130-400) 10^3/uL MPV (8.0-11.0) fL Immature Gran % Neutrophils % Lymphocytes % Monocytes % Eosinophils % Basophils % Nucleated RBC % (0.0-0.3) % Absolute Neutrophils (1.2-6.7) 10^3/uL Absolute Lymphocytes (1.2-3.4) 10^3/uL Absolute Monocytes (0.1-0.8) 10^3/uL Absolute Eosinophils (0.0-0.7) 10^3/uL Absolute Basophils (0.0-0.2) 10^3/uL ABG Sample Site Right Radial ABG pH (7.35-7.45) 7.37 ABG pCO2 (35-45) mmHg 53 H ABG pO2 (80-105) mmHg 47 L ABG HCO3 (22-26) mmol/L 31 H ABG Total CO2 (23-27) mmol/L 28 H ABG O2 Saturation (95-98) % 83 L ABG Base Excess (-2-3) mmol/L 5 H VBG pH (7.31-7.41) VBG pCO2 (41-51) mmHg VBG pO2 mmHg VBG HCO3 VBG Total CO2 VBG O2 Saturation % VBG Base Excess VBG Lactate (0.6-1.4) mmol/L Oxygen Liter Flow L 2 Sodium (136-145) mmol/L Potassium (3.5-5.1) mmol/L Chloride (98-107) mmol/L Carbon Dioxide (21.0-32.0) mmol/L Anion Gap (3-11) mmol/L BUN (7-18) mg/dL Creatinine (0.55-1.02) mg/dL Est GFR (CKD-EPI 2020) (mL/min/1.73m2) Glucose (74-106) mg/dL Calcium (8.5-10.1) mg/dL Phosphorus (2.6-4.7) mg/dL Magnesium (1.8-2.4) mg/dL Total Bilirubin (0.2-1.0) mg/dL AST (15-37) U/L ALT (14-59) U/L Alkaline Phosphatase (46-116) U/L Troponin I (<or=60) ng/L C-Reactive Protein (0.0-0.3) mg/dL NT-Pro-B Natriuret Pep (<300) pg/mL Total Protein (6.4-8.2) g/dL Albumin (3.4-5.0) g/dL Procalcitonin ng/mL TSH (0.36-3.74) uIU/mL Free T4 (0.76-1.46) ng/dL Urine Color (Yellow) Urine Clarity (Clear) Urine pH (5-8) Ur Specific Christine (1.005-1.025) Urine Protein (Negative) mg/dL Urine Ketones (Negative) mg/dL Urine Blood (Negative) Urine Nitrite (Negative) Urine Bilirubin (Negative) Urine Urobilinogen (Up TO 0.2) EU/dL Ur Leukocyte Esterase (Negative) Urine RBC (0-2) HPF Urine WBC (0-5) HPF Ur Epithelial Cells (Negative) HPF Urine Crystals (Negative) HPF Urine Bacteria (Negative) HPF Urine Casts (Negative) LPF Urine Mucus (Negative) Ur Culture Indicated? Urine Glucose (Negative) mg/dL Stool Campylobacter PCR (Negative) Stl C.difficile Tox PCR (Negative) Stool Salmonella PCR (Negative) Stool Shigella PCR (Negative) COVID-19 Source SARS-CoV-2 (PCR) (Negative) Influenza Type A (PCR) (Negative) Influenza Type B (PCR) (Negative) Urine Legionella Ag (Negative) M. pneumoniae Source M. pneumoniae (PCR) RSV (PCR) (Negative) Shiga Toxin (PCR) (Negative) Ur Strep pneumoniae Ag (Negative) Add-On Test Request
[2022-04-23] MEDS: Albuterol/Ipratropium 3 ML UPD VIAL UPD ×2 (07:52→11:45)
[2022-04-23] MEDS: Tiotropium Bromide-Respimat 10 PUFF INH 2 PUFF IH (07:52)
[2022-04-23] MEDS: Budesonide/Formoterol 80/4.5 6.9 GM 60 PUFF INH IH (07:52)
[2022-04-23] MEDS: Diclofenac 1% Gel 100 GM TUBE TP ×2 (08:00→12:05)
[2022-04-23] MEDS: Protein Nutritional Supplement 16 GM 1 OUNCE PACKET PO ×2 (08:01→14:45)
[2022-04-23] MEDS: Normal Saline Flush 10 ML SYR IVP (08:02)
[2022-04-23] MEDS: Enoxaparin 30 MG/0.3 ML SYR SC (08:02)
[2022-04-23] MEDS: Nystatin 500000 UNITS/5 ML SUSP 5ML CUP PO ×2 (08:02→14:45)
[2022-04-23] MEDS: Psyllium PKT 1 EACH PO (08:02)
[2022-04-23] MEDS: predniSONE 20 MG TAB 50 MG PO (08:03)
[2022-04-23] MEDS: Omeprazole 20 MG CAPCR 40 MG PO (08:03)
[2022-04-23] MEDS: guaiFENesin 600 MG TABCR PO (08:03)
[2022-04-23] MEDS: clonazePAM 0.5 MG TAB PO ×2 (08:04→14:46)
[2022-04-23] MEDS: Salt Supplement (BUFFERED) TAB 1 TAB PO (08:04)
[2022-04-23] MEDS: Sulfameth/Trimeth DS TAB 1 TAB PO (08:04)
[2022-04-23] MEDS: Sertraline 100 MG TAB PO (08:04)
[2022-04-23] MEDS: Cholecalciferol (Vitamin D3) 1,000 UNIT TAB 3000 UNITS PO (08:04)
[2022-04-23] MEDS: Roflumilast 500 MCG TAB PO (08:04)
[2022-04-23] MEDS: Gabapentin 100 MG CAP PO ×2 (08:05→14:46)
[2022-04-23] MEDS: Benzonatate 100 MG CAP PO ×2 (08:05→14:46)
--- NOTE | 2022-04-23 09:39 | CMPROGNOTE_ITS ---
- If Service Date Differs Date of service: 04/23/22 Time of Service: 09:39 Care Management Progress Note S/O: Laney was working with PT when CM met with her; she was taking a rest break in the department after ambulating and doing stairs. She was smiling and engaged easily with CM, although she admitted she was tired at the moment from all of the activity. Moriah, her PT, shared that Laney had done very well, even on the stairs. CM informed Laney that her hospital bed had been approved. Delivery will be scheduled when her discharge date is clearer. Laney verbalized that she was really pleased about the bed. She stated that it has become increasingly difficult for her to get in and out of bed at home and she really needs to have the head of the bed elevated. RT is actively pursuing ordering a home bipap unit for Laney. Paperwork has been submitted and they are awaiting approval of the prior authorization. A: Laney is a 76 year old woman admitted on 04/11/22 with Influenza, COPD and pneumonia P:Anticipate Laney will be discharged home with a resumption of home health ser vices when medically cleared. It is possible that she may go to a SNF for rehab prior to returning home if her oxygen requirements allow for that to happen. If her condition does not improve or deteriorates, it is possible she may go home on hospice. Laney will follow up with Pulmonology, her PCP and plan of care. CM will continue to support Laney and assess for discharge needs.
[2022-04-23] MEDS: Dronabinol 2.5 MG CAP PO (10:14)
[2022-04-23] MEDS: Cholestyramine/Aspartame PKT 1 EACH PO (10:14)
--- NOTE | 2022-04-23 10:18 | INDS_ITS ---
Date of service: 04/23/22 Time of Service: 10:14 PT Notes Visit Reasons: Flu, Pneumonia, COPD Inpatient Physical Therapy Discharge Summary Date: 04/23/2021 Dates of Service: 04/12/2022 through 04/23/2021 Referring Doctor: Dr. Marti Carmona PT Orders: PT CONSULT: Limited ability - Eval and Treat Precautions: Droplet precautions, fall, limited ability Patient Profile/Admitting Diagnosis: This is a 76-year-old female with a past medical history of being a palliative care patient who is DNR/DNI, longstanding COPD, fibromyalgia, GERD, multiple admissions for her COPD exacerbations, who presents to ED 04/11/22? for evaluation of increased respiratory effort.? She is on a baseline of 2 L of home oxygen, but over the last 24 hours has been increased to 4 L.? Family states that she has been complaining of some shoulder pain chronically over the last few weeks and has had a notable decline in her respiratory status over the last 2 days.? This evening things continue to worsen, EMS was called and she was brought to the ER for further evaluation.? PMHX: PFSH All Active Problems? COPD exacerbation (Acute) Hypercarbia (Acute) Hospital acquired PNA (Acute) Advanced care planning/counseling discussion (Acute) Palliative care patient (Acute) Hypoxemia (Acute) Hospital-acquired bacterial pneumonia (Acute) Hyponatremia (Chronic) Epigastric pain (Acute) Discharge planning issues (Acute) DVT prophylaxis (Acute) COPD with acute exacerbation (Acute) Acute bronchitis (Acute) Odynophagia (Acute) Dysphagia (Acute) GERD (gastroesophageal reflux disease) (Chronic) Chronic obstructive pulmonary disease (Chronic) Chronic pain syndrome (Chronic 12/15/16) CONTROLLED SUBSTANCE AGREEMENT 10/03/18 Lumbosacral spondylosis without myelopathy (Acute) Fibromyalgia (Acute) Fall (Acute) Low back pain (Acute) Fever (Acute) Discharge planning issues (Acute) Acute exacerbation of chronic obstructive pulmonary disease (COPD) (Acute) T12 compression fracture (Acute) Ongoing leg pain (Acute) continue nsaid prn tramadol see surgeon next week consider topical analgesic on surrounding skin Hemoptysis (Acute) History of cataract removal with insertion of prosthetic lens (Acute 06/05/15) History of chest tube placement (Acute) Status post appendectomy (Acute) Status post laminectomy (Acute) Pain from implanted hardware (Chronic 10/30/18) S/P Hardware removal Bacterial pneumonia (Acute 11/23/13) Chronic anxiety (Chronic 06/22/13) Chronic emphysema syndrome (Chronic) Chronic pain in right shoulder (Chronic 11/20/13) Moderate protein malnutrition (Chronic 11/20/13) Contusion of right knee, initial encounter (Acute) Neck pain (Acute) Irritable bowel syndrome with diarrhea (Chronic) Cervical neck pain with evidence of disc disease (Chronic 06/22/13) History of tobacco abuse (Chronic) Anxiety (Chronic) LLL pneumonia (Acute ~03/30/18) Medical History? DNI (do not intubate) DNR (do not resuscitate) POLST (Physician Orders for Life-Sustaining Treatment) Surgical History? Appendectomy CHEST TUBE Extraction of cataract 06/05/15; LEFT EYE; DR. ARAUZ H/O section Hx of hysterectomy LAMINECTOMY CERVICAL SPINE Social History/Home Situation: Patient lives in [id number] apartment with her daughter and grandchildren.? 5 steps with railing upon entry.? No longer driving.? Patient states she is independent in her own home. Current Functional Limitations: Community ambulation Equipment Owned/DME: ? four-wheeled walker Subjective:? Happy about being able to go home. Agreeable to having HH PT come in. Much more confident about moving about. Objective:?? General Observation: Seaetd on chair Mental Status: Alert and oriented as tp person and purpose Pain: Denies Vital Signs: 82-87% O2 saturation on 3 L of O2 via NC ROM: Right Upper Extremity: Glenohumeral joint flexion 125 degrees active assisted 135 with pain at endrange, abduction 110 degrees actively, elbow flexion and extension within normal limits.? Able to make fist approximating fingertips to palmar crease. Left Upper Extremity: Glenohumeral joint flexion 120 degrees active 125 active assisted with pain at endrange, abduction 100 degrees actively, elbow flexion and extension within normal limits.? Approximate fingertips to palmar crease. Right Lower Extremity: Hip flexion and abduction actively within functional limits.? Knee flexion 105 degrees with pain, extension lacks 5 degrees.? Ankle range of motion within functional limits Left Lower Extremity: Hip flexion and abduction within functional limits actively.? Knee flexion 120 minimal pain, extension 0.? Ankle range of motion within functional limits. 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 Hip flexion 4-/5, quad 4 -/5, hamstring 3+/5, ankle inversion, eversion, plantarflexion and dorsiflexion 4-/5 Left Lower Extremity: Patient form straight leg raise with 0 degree lag.? Hip f lexion 4-/5, quad 4 -/5, hamstrings 4 -/5, ankle inversion, eversion, plantarflexion and dorsiflexion 4-/5 Sensation:? Reported mildly decreased sensation light touch bilateral hands. BED MOBILITY/TRANSFERS: Sit-supine: I Supine-sit: I Sit-stand: I? Stand-sit: I ? GAIT? Assistive Device: FWW ? Weight bearing: Full Assist: S? Distance: 150' in a.m.; 200' in p.m.? Deviation: Mild SOB, anteroflexed posture, short step height and length, increased fatigue THERA EX: Ankle DF/PF x10 Heel slides x10 Patient pulling on PT's static hand with HOB at 45 degrees x 10 Chest expansion exercises with DBE x 5 Balance:? Static Sitting: Normal Dynamic Sitting: Normal Static Standing: Good Dynamic Standing: Fair Assessment:?? Patient presents with clinical signs and symptoms consistent with above diagnosis, as demonstrated by the following impairment level findings: 1. Mobility and strength deficits 2. Lower extremity weakness and 3. Fair balance with dynamic activities Impairments are contributing to the following functional limitations: AMPAC score 47%. 1. Increased completion time for mobility ADL performance 2. Increased risk for falls 3. Difficulty with managing steps alone safely Goals: Goals X1 week 1. Supine-Sit: Independent MET 2. Sit-Supine: Independent MET 3. Sit-Stand: Independent MET 4. Stand-Sit : Independent MET 5. Bed-Chair: Independent MET 6. Chair-Bed: Independent MET 7. Gait: Patient ambulates 100 feet with use of front wheel walker with SBA MET 8. Stairs: Independent with performing 5 stairs with railing with standby assist? NOT MET ? DISCHARGE RECOMMENDATIONS:? [] ? Home with no services [][] [X]?Home with services. Home when medically cleared by hospitalist. Patient will benefit from home health PT services in order to progress mobility level using least restrictive assistive ambulatory device, assess home safety, identify additional equipment needs, and establish a functional maintenance program that will increase ability of patient to remain at home. [] ? Home with outpatient PT [] [] ? SNF for continued rehabilitation [] [] ? [facility] [] [] ? SNF versus LTC based on ability to participate and progress [] TREATMENT CODE/TIME:? 95448 x 25 minutes beginning at 10:18 AM. Thank you for the opportunity to participate in the care of this patient. Teresita Lopez PT, DPT, CLT [facility] [place], [place]
--- NOTE | 2022-04-23 12:17 | W.PM.DS.N ---
Date of service: 04/23/22 Time of Service: 12:17 DS: Diagnosis Discharge Diagnosis (1) Acute on chronic respiratory failure with hypoxia and hypercapnia: Status: Acute Asessment and Plan: Pulmonary medicine consulted. She was placed on BiPAP at night. She qualified for home BiPAP; ABG pCO2 on 2L O2 was 53 and overnight oximetry showed desaturations that qualified her. She improved to requiring her usual home O2 supplementation of 2L per NC with 2L with BiPAP at night. (2) Influenza A: Status: Acute Asessment and Plan: Txd with Tamiflu and recovered (3) Secondary bacterial pneumonia: Status: Acute Asessment and Plan: Initially her procalcitonin was 0.6 then 0.8. It subsequently normalized. Zosyn and Azithromycin initiated. She completed this course along with 2 doses of Augmentin. CXR showed improvement. Clinically improved. (4) COPD exacerbation: Status: Acute Asessment and Plan: While in the hospital, Spiriva and Symbicort administered as well as Duonebs. Oral steroids utilized; home on a prednisone taper. (5) C. difficile colitis: Status: Acute Asessment and Plan: Developed during hospitalization after requiring antibiotics for PNA. Treated with oral vancomycin and IV Flagyl. Resolved. Will finish a 14 day course of vancomycin. (6) TERESA (acute kidney injury): Status: Acute Asessment and Plan: Pre-renal injury. Creatinine improved from 1.9 to 1.2. Continue adequate hydration. Discharge Plan Disposition Patient Disposition: Home W/Home Health Services Condition: Improving Discharge Details Reason For Visit: Flu, Pneumonia, COPD Admit Date/Time: 04/11/22 02:24 Admit Provider: Orlando Shukla Attending Provider: Orlando Shukla Primary Care Provider: Ralph Rahman Hospital Course Hospital Course: 76 female with h/o COPD, on home O2 2-3L, usual sats approx 88-92% per son. Unknown flu vaccine status. Comes in tonight with several days of scant cough, weakness and increasing oxygen requirements. No fever or CP. In ER initial findings of note for O2 sat 92% on 4L, diminished and rhonchorous breath sounds, white count 18 with left shift, VBG demonstrating pH 7.25 with pCO2 100; CXR with RML/RLL infiltrates and Flu positive. Patient given duonebs, steroids, Vanco, Zosyn and Zithromax and placed on BiPAP. Hospitalists asked to evaluate for admission. She was placed on BiPAP overnight with improvement in respiratory status. Oxygen delivery changed to humidified high flow nasal cannula. See Diagnosis PCP follow up in 1-2 weeks. She has an appt with Dr Don on 08/17/22 Home Meds and New Rx's Prescriptions: New ipratropium-albuterol 0.5 mg-3 mg(2.5 mg base)/3 mL Solution For Nebulization 3 ml UPD TID Qty: 180 1RF dronabinol 2.5 mg Capsule 2.5 mg PO BID@1100,1600 Qty: 60 0RF mirtazapine 15 mg Tablet 15 mg PO HS Qty: 30 0RF prednisone 10 mg tablet See Rx Instructions .ROUTE .COMPLEX Qty: 37 0RF Rx Instructions: 5 tabs daily on 04/24, then 4 tabs daily for 3 days, then 3 daily for 3 days, 2 daily for 3 days, 1 daily for 3 days, 1/2 daily for 3 days then stop sulfamethoxazole-trimethoprim 800-160 mg Tablet 1 tab PO DAILY Qty: 12 0RF Rx Instructions: First dose on 04/24/21 vancomycin 250 mg Capsule 250 mg PO QID Qty: 10 0RF Continued celecoxib 200 mg capsule 200 mg PO BID Qty: 60 5RF omeprazole 40 mg capsule,delayed release(DR/EC) 40 mg PO DAILY Qty: 30 5RF PreserVision AREDS-2 250-90-40-1 mg Capsule 2 cap PO DAILY sucralfate 1 gram tablet 1 g PO AC & HS Qty: 120 5RF diphenhydramine HCl 50 mg capsule 50 mg PO QHS Qty: 1 0RF roflumilast [Daliresp] 500 mcg tablet 500 mcg PO DAILY Qty: 90 3RF acetylcysteine 600 mg capsule See Rx Instructions .ROUTE .COMPLEX Qty: 90 3RF Dose Instruction: TAKE ONE CAPSULE BY MOUTH EVERY DAY Rx Instructions: TAKE 1 CAPSULE BY MOUTH EVERY DAY Trelegy Ellipta 100-62.5-25 mcg blister with device 1 inh IH DAILY Qty: 28 11RF sertraline 100 mg tablet 100 mg PO DAILY Qty: 90 3RF acetaminophen 500 mg tablet 1,000 mg PO Q8H PRN (Reason: pain) Qty: 90 8RF gabapentin 100 mg capsule 100 mg PO TID Qty: 90 3RF Salonpas 1 EACH adhesive patch,medicated 1 ea Topical .DAILY X 12 HOURS PRN (Reason: Pain) naloxone [Narcan] 4 mg/actuation spray,non-aerosol 1 spray KELL Q2-3M PRN (Reason: opioid overdose) Qty: 2 0RF Rx Instructions: spray 1 dose into ONE nostril; alternate nostrils w each dose until help arrives Never used cholecalciferol (vitamin D3) [Vitamin D3] 2,000 unit Tablet 3,000 unit PO DAILY clonazepam 1 mg tablet 1 mg PO BID PRN (Reason: Anxiety) Label Comments: TAKE ONE TABLET BY MOUTH TWICE A DAY NEEDED FOR ANXIETY MAXIMUM DAILY DOSE = 2 bismuth subsalicylate [Pepto-Bismol] 262 mg/15 mL Suspension 262 mg PO Q6H PRN (Reason: Heartburn) doxylamine succinate 25 mg Tablet 25 mg PO QHS PRN (Reason: Insomnia) calcium carbonate 600 mg calcium (1.5 gram) Tablet,Chewable 3 - 4 tab PO TID PRN PRN (Reason: Heartburn) cyclosporine [Restasis] 0.05 % dropperette 1 drp ophthalmic (eye) BID Label Comments: INSTILL 1 DROP INTO BOTH EYES TWICE A DAY DIRECTED cranberry extract-vitamin C 250-60 mg Capsule 1 cap PO DAILY buprenorphine 7.5 mcg/hour Patch Weekly 1 patch TRANSDERMAL Q7D Thermotabs 287-180-15 mg Tablet 1 tab PO BID Qty: 60 0RF No Action (DME) Oxygen Tank See Rx Instructions .ROUTE .MEDSUPPLY Qty: 1 Rx Instructions: As directed Discharge Instructions Activity:: Activity as Tolerated Equipment/Supplies:: Nebulizer Diet:: As Tolerated DS: Summary Time Spent with Patient providing and/or coordinating discharge services: Greater than 30 minutes Status at Discharge Functional status at discharge: uses cane/walker Overall status at discharge: patient is progressing back to baseline Mental Status: mental status grossly normal Speech and Movement: speech clear and slowed movement Mood: congruent mood Affect: normal affect Exam Narrative Exam Narrative: Laney is sitting on edge of bed. Smiling and interactive. Lungs: Diminished breath sounds. Soft basilar rales in bases. Heart is regular rate and rhythm Abdomen soft nondistended normal bowel sounds nontender Extremities without peripheral cyanosis or edema Neuro exam grossly intact no focal motor or sensory deficits. A&O x 3. Psych Mental Status: mental status grossly normal Speech and Movement: speech clear and slowed movement Mood: congruent mood Affect: normal affect DS: Data Vitals/I&O Vitals and I&O: Vital Signs Temperature 37.3 C 04/23/22 11:32 Temperature Source Tympanic 04/23/22 11:32 Pulse 100 H 04/23/22 12:04 Pulse Rhythm Regular 04/22/22 19:15 Pulse 92 H 04/19/22 16:00 Respiratory Rate 24 04/23/22 12:04 Respiratory Effort 04/22/22 19:15 Respiratory Depth Normal 04/22/22 19:15 Respiratory Pattern Normal 04/22/22 19:15 Blood Pressure 114/71 04/23/22 11:32 Blood Pressure Mean 92 04/19/22 16:00 Blood Pressure Position Supine 04/19/22 03:28 Pulse Oximetry 96 04/23/22 12:04 Oxygen Delivery Method Nasal Cannula 04/23/22 11:45 Oxygen Flow Rate 2 04/23/22 11:45 Fraction of Inspired Oxygen (FIO2) 28 04/23/22 11:12 Pain Level 0 04/23/22 11:32 Comment 04/22/22 03:42 Intake & Output 04/22/22 04/23/22 04/23/22 23:59 11:59 23:59 Intake Total 580 / 590 300 / 300 Output Total 300 / 300 Balance 280 / 290 300 / 300 Intake: IV 100 / 110 Oral 480 / 480 300 / 300 Output: Urine 300 / 300 Other: Urine Color Yellow Urine Appearance Clear Urine Odor Normal Comment mixed with stool / unmeasured unable to measure due to stool Stool Size Small Small Stool Characteristics Liquid Liquid Brown Voiding Methods Bedside Commode Bedside Commode [facility] All Active Problems Palliative care patient (Acute) Depression (Chronic) Protein calorie malnutrition (Acute) Chronic pain (Chronic) TERESA (acute kidney injury) (Acute) C. difficile colitis (Acute) Discharge planning issues (Acute) DVT prophylaxis (Acute) Acute on chronic respiratory failure with hypoxia and hypercapnia (Acute) Secondary bacterial pneumonia (Acute) Influenza A (Acute) COPD exacerbation (Acute) Hypercarbia (Acute) Hospital acquired PNA (Acute) Advanced care planning/counseling discussion (Acute) Hypoxemia (Acute) Hospital-acquired bacterial pneumonia (Acute) Hyponatremia (Chronic) Epigastric pain (Acute) Discharge planning issues (Acute) DVT prophylaxis (Acute) COPD with acute exacerbation (Acute) Acute bronchitis (Acute) Odynophagia (Acute) Dysphagia (Acute) GERD (gastroesophageal reflux disease) (Chronic) Chronic obstructive pulmonary disease (Chronic) Chronic pain syndrome (Chronic 12/15/16) CONTROLLED SUBSTANCE AGREEMENT 10/03/18 Lumbosacral spondylosis without myelopathy (Acute) Fibromyalgia (Acute) Fall (Acute) Low back pain (Acute) Fever (Acute) Discharge planning issues (Acute) Acute exacerbation of chronic obstructive pulmonary disease (COPD) (Acute) T12 compression fracture (Acute) Ongoing leg pain (Acute) continue nSaid prn tramadol see surgeon next week consider topical analgesic on surrounding skin Hemoptysis (Acute) History of cataract removal with insertion of prosthetic lens (Acute 06/05/15) History of chest tube placement (Acute) Status post appendectomy (Acute) Status post laminectomy (Acute) Pain from implanted hardware (Chronic 10/30/18) S/P Hardware removal Bacterial pneumonia (Acute 11/23/13) Chronic anxiety (Chronic 06/22/13) Chronic emphysema syndrome (Chronic) Chronic pain in right shoulder (Chronic 11/20/13) Moderate protein malnutrition (Chronic 11/20/13) Contusion of right knee, initial encounter (Acute) Neck pain (Acute) Irritable bowel syndrome with diarrhea (Chronic) Cervical neck pain with evidence of disc disease (Chronic 06/22/13) History of tobacco abuse (Chronic) Anxiety (Chronic) LLL pneumonia (Acute ~03/30/18) Medical History DNI (do not intubate) DNR (do not resuscitate) POLST (Physician Orders for Life-Sustaining Treatment) Surgical History Appendectomy CHEST TUBE Extraction of cataract 06/05/15; LEFT EYE; DR. ARAUZ H/O section Hx of hysterectomy LAMINECTOMY CERVICAL SPINE Family History Mother , at age 89, cardiac problems No problems noted. Father , at 81 Cancer Throat cancer Brother , at 71 Colon cancer Sister Diabetes DM2 Sister Diabetes DM2 Son No problems noted. Social History Smoking/Tobacco Use Status: Former Tobacco Use Quit Date: 09/16/13 Pack-years: 50 Smoking risk assessment performed?: Yes Alcohol Intake: former Year quit: 1979 Drug use: Never Substance use type: does not use Household members: none Housing: apartment Do you feel safe at home: Yes Do you feel safe in your relationship?: No Additional Social history: 16 years ago. Originally from [place], moved here to be near son and grand children. [place] apartment [place] House[place]. Enjoys contact with 4 grandchildren throughout the day (they are homeschooled and her home much of the time). Bedbound approximately 22 hours a day. On disability due to chronic back pain. 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 Approximate 75 pack year history of tobacco. No alcohol or illicit drug use endorsed. Time Spent with Patient Time Spent with Patient: 45-69 minutes Time was spent: preparing to see the patient(eg.review tests), ordering medications,tests, procedures, referring, communicating with other health career services director and counseling the patient
--- NOTE | 2022-04-23 14:07 | CHAPLAIN ---
Laney is being discharged home today. She has a hospital bed being delivered today as well. Laney talked about the progresses she made after being admitted to the ICU with the flu, pneumonia and COPD. Her son Stanley, will take her home and he will be away for the weekend as a rubber cutting machine tender for the [employer], but Laney lives with Stanley, his and four kids. Although she is a little apprehensive about going home, Laney said her granddaughter, who is 7, will check in with her frequently and Laney is looking forward to being home.
--- NOTE | 2022-04-23 14:45 | W.PFT ---
Date of service: 04/21/22 Time of Service: 23:50 Pulmonary Function Test Result Requesting Provider Arian Indications: BiPAP qualification Note: Overnight Oximetry Amount of time analyzed: 6 hours, 34 minutes on 2LPM nasal cannula Number of minutes under 88%: 346.7 minutes ALMA: 1.4 Appearance of oxygen saturation pattern:Consistently low SpO2 with gradual changes primarily consistent with cardiac or pulmonary disease. Recommendation:Repeat nocturnal oximetry while on BiPAP as an outpatient. Recommend oxygen bleed with BiPAP. Ernestine Don MD Pulmonary & Critical Care Medicine Clinical Correlation therefore is recommended.
--- NOTE | 2022-04-23 14:56 | PDOC.CMDIS ---
- If Service Date Differs Date of service: 04/23/22 Time of Service: 14:56 LACE Index Scoring Tool - Questions: Length of Stay (in days): 7 - 13 Acuity (Admit via E.D.?): Yes Comorbidities: Chronic Pulmonary Disease E.D. Visits: 3 - Answers: Total Score: 13 Risk of Readmission: High Risk Care Management Discharge Reason for Hospitalization: COPD Exacerbation Discharge Plan: Laney will be discharged home with a resumption of home health services to include nursing, PT and OT. Laney will follow up with Pulmonology, her PCP and plan of care and transport via private vehicle with her son. . Patient/Family Education Needs: review of discharge instructions, limitations, activity, follow up plan, Ask Me Three discussion.
--- NOTE | 2022-04-23 15:12 | PDOC.HHF2F ---
Home Health Referral Home Health Orders Clinical synopsis of why skilled professionals are needed: She presented with acute on chronic respiratory failure, pneumonia and COPD exacerbation. She also developed C.Diff. colitis. Her pneumonia was adequately treated. She returned to her baseline supplemental O2 needs. She has 2 more days of vancomycin to take for C.Diff colitis. She has new medications and needs to be monitored for any regression of her diagnoses and for compliance. Waiting approval for a home BiPAP machine. A hospital bed is to be delivered on the day of discharge. Medical diagnosis necessitation home health referral: Chronic resp. failure, COPD, C.Diff colitis. Registered Nurse: Check all that apply Instruct on new or changed medication(s)/assess compliance: Ordered Assess for exacerbation of medical condition, instruct patient/caregivers on signs and symptoms to report for early detection: Ordered Physical Therapist: Check all that apply Increase strength & endurance for safe mobility at home: Ordered To design/establish home maintenance program: Ordered Occupational Therapist: Evaluate and treat for patient unable to perform ADL/IADL/self-care: Ordered Upper extremity strengthening, range and motion: Ordered Home Bound Status Requires the aid of supportive device (check all that apply): Walker Describe why leaving home would require a considerable and taxing effort: Requires frequent rest periods and Oxygen Encounter Date and Reason: I certify that a FTF encounter for this patient was performed on April 23, 2022 and that such encounter was related to the primary reason the patient requires home health services. The encounter was conducted in the following manner: By me as the certifying physician, CONVENTIONS RESERVATIONIST, PA or By an inpatient physician, CONVENTIONS RESERVATIONIST or PA during an inpatient stay who communicated findings to me, Certification And Authentication I certify that I composed the above information based on my clinical judgment relating to this patient's medical condition and, if applicable, clinical findings communicated to me by the NPP or inpatient physician who performed the FTF encounter. Name of Provider that will be monitoring home health services: Yvon Penaloza
== END 2022-04-23 16:18 | disposition home health service (06) | DRG 193 ==
LOC: ER 02:39 → MS 03:16 → ICU 14:07 → MS 04-19 16:49
PROVIDERS: Family Medicine; Internal Medicine; Student in an Organized Health Care Education/Training Program; Admitting Provider General Practice; Emergency Provider Student in an Organized Health Care Education/Training Program; PCP Family Medicine; Visit Provider General Practice
DX: J10.1 Influenza due to other identified influenza virus with other respiratory manifestations (principal); J96.21 Acute and chronic respiratory failure with hypoxia; J96.22 Acute and chronic respiratory failure with hypercapnia; J44.0 Chronic obstructive pulmonary disease with (acute) lower respiratory infection; E44.0 Moderate protein-calorie malnutrition; Z68.1 Body mass index [BMI] 19.9 or less, adult; J44.1 Chronic obstructive pulmonary disease with (acute) exacerbation; A04.72 Enterocolitis due to Clostridium difficile, not specified as recurrent; N17.9 Acute kidney failure, unspecified; J15.9 Unspecified bacterial pneumonia; Z66 Do not resuscitate; F32.A Depression, unspecified; M79.7 Fibromyalgia; K21.9 Gastro-esophageal reflux disease without esophagitis; Z99.81 Dependence on supplemental oxygen; R13.10 Dysphagia, unspecified; M47.817 Spondylosis without myelopathy or radiculopathy, lumbosacral region; F41.9 Anxiety disorder, unspecified; K58.0 Irritable bowel syndrome with diarrhea; Z87.891 Personal history of nicotine dependence; M50.80 Other cervical disc disorders, unspecified cervical region; Z79.891 Long term (current) use of opiate analgesic
CPT/HCPCS: 36415; 76770; 80048; 80053; 82805; 84145; 85027; 87040; 87081; 87449; 87493; 87505; 87637; 93005; 94640; 96365; 96367; 96375; 97110; 97162; 97530; 99285; J1650; 36600; 71045; 74018; 81003; 81015; 83605; 83735; 83880; 84100; 84439; 84443; 84484; 85025; 86140; 87070; 87205; 87581; 87899; 93010; 94660; 94668; 94762; 99222; 99232; 99239; 99291; J0131; J0456; J2405; J2543; J2930; J7512; J7613; J7620

== ENCOUNTER 2022-06-04 16:43 | Outpatient (REF) | payer MEDICARE, MEDICAID, SELFPAY ==
[2022-06-04 17:58] LABS: Bilirubin Negative (Negative); Blood Negative (Negative); Clarity Clear (Clear); Glucose Negative (Negative); Ketones Negative (Negative); Leukocyte Esterase Negative (Negative); Nitrite Negative (Negative); Specific Gravity 1.025 (1.005-1.025); Urobilinogen 0.2 mg/dL (Up to 0.2); pH 5.5 (5-8)
== END 2022-06-04 16:44 | disposition home or self-care (01) ==
LOC: LBN 16:43
PROVIDERS: PCP Family Medicine; Visit Provider Family Medicine
DX: R35.0 Frequency of micturition (principal)
CPT/HCPCS: 81003

== ENCOUNTER 2022-07-07 01:58 | Outpatient (CLI) | payer MEDICARE, MEDICAID, SELFPAY ==
--- NOTE | 2022-07-07 07:00 | DI.RAD_ITS ---
Exam(s) XR SHOULDER RT COMPLETE 2+V EXAM: XR SHOULDER RT COMPLETE 2+V CLINICAL HISTORY: shoulder pain on right,M25.511. TECHNIQUE: 2D digital imaging was performed of the right shoulder. Five images were obtained. AP, Grashey, Y-view and axillary views were obtained. COMPARISON: No exams were available for comparison FINDINGS: BONES: No acute fracture is present. No bony destructive lesion is seen. JOINTS: No dislocation present. There are degenerative changes seen at the acromioclavicular joint. The glenohumeral joint is well maintained. SOFT TISSUE: Normal. IMPRESSION: Degenerative changes in the right shoulder. DATA REPOSITORY: RADIATION DOSE DELIVERED:
== END 2022-07-07 02:18 ==
LOC: DI 01:58
PROVIDERS: PCP Family Medicine; Visit Provider Family Medicine
DX: M25.511 Pain in right shoulder (principal); M19.011 Primary osteoarthritis, right shoulder
CPT/HCPCS: 73030

== ENCOUNTER 2022-07-22 11:55 | Inpatient (IN) | payer MEDICARE, MEDICAID, SELFPAY ==
[2022-07-22] VITALS (32 sets, daily range): BP systolic 86–156; BP diastolic 47–84; PULSE 95–129; RESP 12–29; TEMP 37.4–37.7; O2SAT 90–95
--- NOTE | 2022-07-22 11:45 | RT.EKG_ITS ---
APPROVED REPORT Exam: Resting ECG Reason for Exam: sob Patient Location: E HR:112 bpm ECG Measurements Heart Rate 112 AXIS OK 175 P 83 QRSd 74 QRS 57 QT 331 T 71 QTc 452 Conclusion Sinus tachycardia...rate> 99 Sinus. Normal axis. No STEMI. I have reviewed and interpreted ECG and agree with software generated interpretation.
--- NOTE | 2022-07-22 12:23 | W.ED.GENAD ---
Discharge Plan Disposition Patient Disposition: Admit to [facility] Condition: Serious Discharge Details Chief Complaint: SOB Clinical Impression: Acute exacerbation of chronic obstructive pulmonary disease, Dependence on supplemental oxygen Primary Care Provider: Ralph Rahman ED Provider: Bouchra Hewitt Home Meds and New Rx's Prescriptions: No Action (DME) Oxygen Tank See Rx Instructions .ROUTE .MEDSUPPLY Qty: 1 Rx Instructions: As directed PreserVision AREDS-2 250-90-40-1 mg Capsule 2 cap PO DAILY clonazepam 1 mg tablet 1 mg PO TID PRN (Reason: anxiety) Qty: 90 2RF Rx Instructions: dose increase 02/23/22 sucralfate 1 gram tablet 1 g PO AC & HS Qty: 120 5RF diphenhydramine HCl 50 mg capsule 50 mg PO QHS Qty: 1 0RF roflumilast [Daliresp] 500 mcg tablet 500 mcg PO DAILY Qty: 90 3RF Trelegy Ellipta 100-62.5-25 mcg blister with device 1 inh IH DAILY Qty: 28 11RF sertraline 100 mg tablet 100 mg PO DAILY Qty: 90 3RF acetaminophen 500 mg tablet 1,000 mg PO Q8H PRN (Reason: pain) Qty: 90 8RF gabapentin 100 mg capsule 100 mg PO TID Qty: 90 3RF diclofenac sodium 1 % gel 2 g topical QID PRN (Reason: pain) Qty: 100 1RF Rx Instructions: apply to single elbow, wrist or hand; for hand includes palm/fingers/back of hand morphine concentrate 100 mg/5 mL (20 mg/mL) solution See Rx Instructions PO Q1H PRN MDD 120 mg Qty: 30 0RF Rx Instructions: 0.25-1.0 ml orally every 1 hour, as needed; HOSPICE mirtazapine 15 mg tablet 15 mg PO HS Qty: 90 3RF buprenorphine [Butrans] 10 mcg/hour patch weekly 1 patch transdermal Q7D Qty: 4 0RF omeprazole 40 mg capsule,delayed release(DR/EC) 40 mg PO DAILY Qty: 30 5RF acetylcysteine 600 mg capsule See Rx Instructions .ROUTE .COMPLEX Qty: 90 3RF Dose Instruction: TAKE ONE CAPSULE BY MOUTH EVERY DAY Rx Instructions: TAKE 1 CAPSULE BY MOUTH EVERY DAY Salonpas 1 EACH adhesive patch,medicated 1 ea Topical .DAILY X 12 HOURS PRN (Reason: Pain) naloxone [Narcan] 4 mg/actuation spray,non-aerosol 1 spray KELL Q2-3M PRN (Reason: opioid overdose) Qty: 2 0RF Rx Instructions: spray 1 dose into ONE nostril; alternate nostrils w each dose until help arrives Never used cholecalciferol (vitamin D3) [Vitamin D3] 2,000 unit Tablet 3,000 unit PO DAILY doxylamine succinate 25 mg Tablet 25 mg PO QHS PRN (Reason: Insomnia) calcium carbonate 600 mg calcium (1.5 gram) Tablet,Chewable 3 - 4 tab PO TID PRN PRN (Reason: Heartburn) cyclosporine [Restasis] 0.05 % dropperette 1 drp ophthalmic (eye) BID Patient Comments: INSTILL 1 DROP INTO BOTH EYES TWICE A DAY DIRECTED cranberry extract-vitamin C 250-60 mg Capsule 1 cap PO DAILY ipratropium-albuterol 0.5 mg-3 mg(2.5 mg base)/3 mL Solution For Nebulization 3 ml UPD TID Qty: 180 1RF Thermotabs 287-180-15 mg Tablet 1 tab PO BID Qty: 60 0RF Medical Decision Making 1210 -- 77-year-old female with a history of COPD dependent on home O2 at 2 L nasal cannula oxygen, former smoker, fibromyalgia presents from home for decreased p.o. intake, generalized fatigue, cough with green sputum and increasing shortness of breath over the past few days. Rate 110s on arrival. EKG notes a rate of 112, sinus, normal axis, no STEMI. Oxygen saturation 94% on her baseline 2 L which is her norm. She has diminished breath sounds throughout. No lower extremity edema. She is speaking in 3-4 word sentences but appears nontoxic. Differential diagnosis includes acute COPD exacerbation, pneumonia, COVID, influenza, RSV. History and presentation does not appear consistent with ACS, PE or dissection. Will give a dose of albuterol and Atrovent, 125 Solu-Medrol IV and refer for screening labs and chest x-ray. Pt has occasionally into the mid 80s requiring increase in her nasal cannula oxygen. She quickly improved and was able to be titrated down to her 2 L nasal cannula oxygen. 1430 --labs and imaging reviewed. 1520 -- Patient reassessed and she states she feels much better. Oxygen saturation 94% on 2 L. She states she still has some shortness of breath so we will give another Xopenex. Will reassess. 1600 --patient still feels short of breath after another Xopenex. Oxygen saturation 86% on her baseline 2 L, increased to 4 L nasal cannula. She still has diminished breath sounds throughout. Will admit for nebs, steroids and observation. 164 --discussed with hospitalist who accepts patient for admission. Medical Records Medical records reviewed: Yes I reviewed the patient's medical records. Imaging Data Radiologic Study: Radiologist's impression: XR CHEST 2V PA ? LATERAL CLINICAL HISTORY: ? cough, sob, r/o acute disease. ? TECHNIQUE:? 2D digital imaging was performed. COMPARISON:? CR,XR XR PORTABLE CHEST AP from 04/18/2022 FINDINGS: 2 views: Heart size is normal.? The mediastinum is not widened. Hyperinflation-COPD findings again noted.? Left lung clear. Mild increased markings in lateral right lung base.? No obvious pleural effusions. IMPRESSION: COPD-hyperinflation.? Mild increased markings lateral right lung base.? No pleural effusions.? No pulmonary edema.? No pneumothorax. Lab Data Lab results reviewed: Yes I reviewed the patient's lab results. Labs: Laboratory Tests Range/Units 07/22/22 07/22/22 07/22/22 12:32 12:32 12:32 WBC (4.4-10.8) 10^3/uL 9.59 RBC (3.93-5.22) 10^6/uL 4.51 Hgb (11.2-15.7) g/dL 12.9 Hct (36.0-46.0) % 41.1 MCV (80-95) fL 91 MCH (27.0-33.0) pg 28.6 MCHC (32.0-36.0) % 31.4 L RDW (11.7-14.6) % 14.1 Plt Count (130-400) 10^3/uL 192 MPV (8.0-11.0) fL 8.9 Immature Gran % 0.3 Neutrophils % 78.1 Lymphocytes % 14.0 Monocytes % 6.0 Eosinophils % 1.3 Basophils % 0.3 Nucleated RBC % (0.0-0.3) % 0.0 Absolute Neutrophils (1.2-6.7) 10^3/uL 7.49 H Absolute Lymphocytes (1.2-3.4) 10^3/uL 1.34 Absolute Monocytes (0.1-0.8) 10^3/uL 0.58 Absolute Eosinophils (0.0-0.7) 10^3/uL 0.12 Absolute Basophils (0.0-0.2) 10^3/uL 0.03 Sodium (136-145) mmol/L 139 Potassium (3.5-5.1) mmol/L 3.9 Chloride (98-107) mmol/L 100 Carbon Dioxide (21.0-32.0) mmol/L 38.0 H Anion Gap (3-11) mmol/L 1.0 L BUN (7-18) mg/dL 8 Creatinine (0.55-1.02) mg/dL 0.7 Est GFR (CKD-EPI 2020) (mL/min/1.73m2) 89.02 Glucose (74-106) mg/dL 116 H Calcium (8.5-10.1) mg/dL 9.8 Magnesium (1.8-2.4) mg/dL 1.7 L Total Bilirubin (0.2-1.0) mg/dL 0.2 AST (15-37) U/L 9 L ALT (14-59) U/L 11 L Alkaline Phosphatase (46-116) U/L 83 Troponin I (<or=60) ng/L < 50 Total Protein (6.4-8.2) g/dL 7.1 Albumin (3.4-5.0) g/dL 3.7 COVID-19 Source Nasopharynx SARS-CoV-2 (PCR) (Negative) Negative Influenza Type A (PCR) (Negative) Negative Influenza Type B (PCR) (Negative) Negative RSV (PCR) (Negative) Negative ECG Data Attestation: I personally reviewed and interpreted this ECG (s) as follows: Interpretation: rate of 112, sinus, normal axis, no stemi. HPI General Mode of arrival: ambulatory. Date/Time Provider Initiated Documentation: 07/22/22 12:17. Limitations to Documentation: no limitations. Information obtained by: patient. HPI Narrative: Pt is a 77yo F w/ a h/o COPD chronically on 2L nasal cannula who is DNR/DNI who reports increased shortness of breath and cough with green sputum for the past few days. Patient also admits to decreased p.o. intake over the past few days. She states her oxygen saturation is normally in the low to mid 90s on her 2 L nasal cannula. EMS reported that her oxygen saturation was 80s on their arrival and received a neb treatment and her oxygen saturation increased to 95% on her 2 L nasal cannula. Patient states she was admitted here 2 months ago for C. difficile. She denies any recent antibiotics or steroids. Related Data Home Medications Medication Instructions Recorded Confirmed camphor-methyl salicylate-menthol 1 ea topical .DAILY X 12 HOURS PRN 11/10/16 06/29/22 topical patch (Salonpas topical Pain patch) Oxygen #1 ea 12/12/18 07/22/22 naloxone 4 mg/actuation nasal 1 spray intranasal Q2-3M PRN 04/18/19 07/22/22 spray (Narcan) opioid overdose #2 ea cholecalciferol (vitamin D3) 50 3,000 unit PO DAILY 05/10/19 07/22/22 mcg (2,000 unit) tablet (Vitamin D3) roflumilast 500 mcg tablet 500 mcg PO DAILY #90 tab-caps 06/02/21 07/22/22 (Daliresp) fluticasone fur. 100 mcg-umeclid 1 inh inhalation DAILY #28 ea 07/22/21 07/22/22 62.5 mcg-vilant 25 mcg inhalat.powder (Trelegy Ellipta) sertraline 100 mg tablet 100 mg PO DAILY #90 tab-caps 08/14/21 07/22/22 vit C 250 mg-vit E 90 mg-zinc 40 2 cap PO DAILY 08/21/21 07/22/22 mg-copper 1 of-acppyv-mrqhsz capsule (PreserVision AREDS-2) acetaminophen 500 mg tablet 1,000 mg PO Q8H PRN pain #90 tabs 09/15/21 07/22/22 sodium chloride-potassium chloride 1 tab PO BID #60 tabs 01/31/22 06/29/22 287 mg-180 mg-15 mg tablet (Thermotabs) sucralfate 1 gram tablet 1 g PO AC & HS #120 tabs 02/23/22 07/22/22 diphenhydramine HCl 50 mg capsule 50 mg PO QHS #1 cap 03/05/22 06/29/22 gabapentin 100 mg capsule 100 mg PO TID #90 caps 04/06/22 07/22/22 calcium carbonate 600 mg calcium 3 - 4 tab PO TID PRN PRN Heartburn 04/11/22 07/22/22 (1.5 gram) chewable tablet cranberry extract-vitamin C 250 1 cap PO DAILY 04/11/22 07/22/22 mg-60 mg capsule cyclosporine 0.05 % eye drops in a 1 drp ophthalmic (eye) BID 04/11/22 06/29/22 dropperette (Restasis) doxylamine succinate 25 mg tablet 25 mg PO QHS PRN Insomnia 04/11/22 07/22/22 ipratropium 0.5 mg-albuterol 3 mg 3 ml UPD TID #180 mL 04/23/22 07/22/22 (2.5 mg base)/3 mL nebulization soln diclofenac sodium 1 % topical gel 2 g topical QID PRN pain #100 grams 04/27/22 07/22/22 clonazepam 1 mg tablet 1 mg PO TID PRN anxiety #90 tabs 05/06/22 07/22/22 morphine concentrate 100 mg/5 mL See Rx Instructions PO Q1H PRN #30 05/14/22 06/29/22 (20 mg/mL) oral solution mL mirtazapine 15 mg tablet 15 mg PO HS #90 tabs 05/24/22 07/22/22 buprenorphine 10 mcg/hour weekly 1 patch transdermal Q7D #4 ea 06/21/22 07/22/22 transdermal patch (Butrans) acetylcysteine 600 mg capsule See Rx Instructions .Route 06/28/22 06/29/22 .COMPLEX #90 caps omeprazole 40 mg capsule,delayed 40 mg PO DAILY #30 caps 06/28/22 07/22/22 release Previous Rx's Medication Instructions Recorded naloxone 4 mg/actuation nasal 1 spray intranasal Q2-3M PRN 04/18/19 spray (Narcan) opioid overdose #2 ea roflumilast 500 mcg tablet 500 mcg PO DAILY #90 tab-caps 06/02/21 (Daliresp) fluticasone fur. 100 mcg-umeclid 1 inh inhalation DAILY #28 ea 07/22/21 62.5 mcg-vilant 25 mcg inhalat.powder (Trelegy Ellipta) sertraline 100 mg tablet 100 mg PO DAILY #90 tab-caps 08/14/21 acetaminophen 500 mg tablet 1,000 mg PO Q8H PRN pain #90 tabs 09/15/21 sodium chloride-potassium chloride 1 tab PO BID #60 tabs 01/31/22 287 mg-180 mg-15 mg tablet (Thermotabs) sucralfate 1 gram tablet 1 g PO AC & HS #120 tabs 02/23/22 diphenhydramine HCl 50 mg capsule 50 mg PO QHS #1 cap 03/05/22 gabapentin 100 mg capsule 100 mg PO TID #90 caps 04/06/22 ipratropium 0.5 mg-albuterol 3 mg 3 ml UPD TID #180 mL 04/23/22 (2.5 mg base)/3 mL nebulization soln diclofenac sodium 1 % topical gel 2 g topical QID PRN pain #100 grams 04/27/22 clonazepam 1 mg tablet 1 mg PO TID PRN anxiety #90 tabs 05/06/22 morphine concentrate 100 mg/5 mL See Rx Instructions PO Q1H PRN #30 05/14/22 (20 mg/mL) oral solution mL mirtazapine 15 mg tablet 15 mg PO HS #90 tabs 05/24/22 buprenorphine 10 mcg/hour weekly 1 patch transdermal Q7D #4 ea 06/21/22 transdermal patch (Butrans) acetylcysteine 600 mg capsule See Rx Instructions .Route 06/28/22 .COMPLEX #90 caps omeprazole 40 mg capsule,delayed 40 mg PO DAILY #30 caps 06/28/22 release Allergies Allergy/AdvReac Type Severity Reaction Status Date / Time No Known Allergies Allergy Verified 02/13/22 07:59 General Stated Complaint: SOB MCKAYLA: 2 Review of Systems All systems reviewed & are unremarkable except as noted in HPI and below Constitutional Constitutional: Reports as per HPI, Denies chills, Denies fever(s) and Reports poor appetite Eyes Eyes: Denies blurry vision ENT Ears, Nose, Mouth, and Throat: Denies dizziness, Denies sore throat and Denies throat swelling Cardiovascular Cardiovascular: Denies chest pain and Reports dyspnea Respiratory Respiratory: Reports cough and Reports dyspnea Gastrointestinal Gastrointestinal: Denies abdominal pain, Denies diarrhea and Denies vomiting Genitourinary Genitourinary: Denies hematuria and Denies dysuria Musculoskeletal Musculoskeletal: Denies back pain and Denies numbness Integumentary/Breasts Skin/Breast: Denies lesions and Denies rash Neurologic Neurologic: Denies dizziness, Denies localized weakness and Denies numbness Allergic/Immunologic Allergic/Immunologic: Denies throat swelling PFS All Active Problems (Updated 07/22/22 @ 17:05 by Bouchra Hewitt DO) Acute exacerbation of chronic obstructive pulmonary disease (Acute) Dependence on supplemental oxygen (Acute) Right shoulder pain (Acute) Abnormal weight loss (Acute) Chronic respiratory failure with hypercapnia (Acute) Palliative care patient (Acute) Depression (Chronic) Protein calorie malnutrition (Acute) Chronic pain (Chronic) TERESA (acute kidney injury) (Acute) Acute on chronic respiratory failure with hypoxia and hypercapnia (Acute) Hyponatremia (Chronic) Epigastric pain (Acute) Discharge planning issues (Acute) DVT prophylaxis (Acute) COPD with acute exacerbation (Acute) Odynophagia (Acute) GERD (gastroesophageal reflux disease) (Chronic) Chronic obstructive pulmonary disease (Chronic) Lumbosacral spondylosis without myelopathy (Acute) Fibromyalgia (Acute) Fall (Acute) Low back pain (Acute) Discharge planning issues (Acute) T12 compression fracture (Acute) Hemoptysis (Acute) History of cataract removal with insertion of prosthetic lens (Acute 06/05/15) Status post appendectomy (Acute) Status post laminectomy (Acute) Pain from implanted hardware (Chronic 10/30/18) S/P Hardware removal Chronic anxiety (Chronic 06/22/13) Chronic emphysema syndrome (Chronic) Chronic pain in right shoulder (Chronic 11/20/13) Moderate protein malnutrition (Chronic 11/20/13) Neck pain (Acute) Irritable bowel syndrome with diarrhea (Chronic) History of tobacco abuse (Chronic) Anxiety (Chronic) Medical History (Updated 07/22/22 @ 17:05 by Bouchra Hewitt DO) Acute exacerbation of chronic obstructive pulmonary disease (COPD) C. difficile colitis Cervical neck pain with evidence of disc disease (06/22/13) Contusion of right knee, initial encounter DNI (do not intubate) DNR (do not resuscitate) LLL pneumonia (~03/30/18) Ongoing leg pain continue nSaid prn tramadol see surgeon next week consider topical analgesic on surrounding skin Pneumothorax, spontaneous, tension (04/11/10) POLST (Physician Orders for Life-Sustaining Treatment) Surgical History (Updated 06/29/22 @ 10:32 by Ralph Rahman MD) Appendectomy CHEST TUBE Extraction of cataract 06/05/15; LEFT EYE; DR. ARAUZ H/O section Hx of hysterectomy LAMINECTOMY CERVICAL SPINE Right femoral fracture (05/09/17) ORIF DOS: 05/10/17 Dr. Bob Family History Mother , at age 89, cardiac problems No problems noted. Father , at 81 Cancer Throat cancer Brother , at 71 Colon cancer Sister Diabetes DM2 Sister Diabetes DM2 Son No problems noted. Social History Smoking/Tobacco Use Status: Former Tobacco Use Quit Date: 09/16/13 Pack-years: 50 Smoking risk assessment performed?: Yes Alcohol Intake: former Year quit: 1979 Drug use: Never Substance use type: does not use Household members: none Housing: apartment Do you feel safe at home: Yes Do you feel safe in your relationship?: No Additional Social history: 16 years ago. Originally from [place], moved here to be near son and grand children. [place] apartment [place] House[place]. Enjoys contact with 4 grandchildren throughout the day (they are homeschooled and her home much of the time). Bedbound approximately 22 hours a day. On disability due to chronic back pain. 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 Approximate 75 pack year history of tobacco. No alcohol or illicit drug use endorsed. Exam Const General: cooperative, no acute distress and ill appearing chronically Orientation: alert, awake and oriented x3 HENMT Head: normal to inspection Ears: hearing grossly normal bilaterally, external ears normal and TM's normal bilaterally Face and sinus: normal facial exam Mouth: mucous membranes dry Throat: posterior oropharynx normal, uvula midline and no peritonsillar masses Eyes General: appearance normal, both eyes and all related structures Pupils: PERRL EOM: EOM intact bilaterally Neck Neck: normal visual inspection and No submandibular swelling Lymphatic: no lymphadenopathy noted Chest Chest: normal inspection of the chest and no tenderness Resp Effort & Inspection: normal respiratory effort and able to speak in complete sentences Auscultation: diminished lung sounds bilaterally throughout Cardio Rate: tachycardic Rhythm: regular rhythm GI Inspection: normal to inspection Palpation: soft, not firm, not rigid and nontender Auscultation: hypoactive bowel sounds Back/Spine/Pelvis Thoracic/Lumbar Spine: thoracic and lumbar spine normal to inspection Pelvis: no pain with anterior-posterior compression Skin General skin exam: no rashes or lesions noted Neuro General: patient alert, patient awake and patient oriented x3 Cognition: normal cognition Speech: speech normal Motor: muscle tone normal throughout Sensory Exam: no sensory deficits noted Extrem General: normal to inspection, full ROM, capillary refill normal, no calf tenderness bilaterally and no edema Psych Appearance: grossly normal Mental Status: mental status grossly normal Speech and Movement: speech and movement normal Affect: normal affect Course Vital Signs Vital signs: Vital Signs Temperature 99.4 F 07/22/22 12:03 Pulse 114 H 07/22/22 12:03 Respiratory Rate 22 07/22/22 12:03 Blood Pressure 151/83 H 07/22/22 12:03 Pulse Oximetry 94 07/22/22 12:03 Temperature 99.4 F 07/22/22 12:03 Temperature Source Oral 07/22/22 12:03 Pulse 114 H 07/22/22 12:03 Respiratory Rate 22 07/22/22 12:03 Blood Pressure 151/83 H 07/22/22 12:03 Blood Pressure Position Sitting 07/22/22 12:03 Pulse Oximetry 94 07/22/22 12:03 Oxygen Delivery Method Nasal Cannula 07/22/22 12:03 Oxygen Flow Rate 2 07/22/22 12:03
[2022-07-22 12:52] LABS: Abs Immature Grans 0.03 10^3/uL (0.0-0.06); Absolute Basophil Count 0.03 10^3/uL (0.0-0.2); Absolute Eosinophil Count 0.12 10^3/uL (0.0-0.7); Absolute Lymphocyte Count 1.34 10^3/uL (1.2-3.4); Absolute Monocyte Count 0.58 10^3/uL (0.1-0.8); Absolute Neutrophil Count 7.49 10^3/uL (1.2-6.7); Basophils % 0.3; Eosinophils % 1.3; HCT 41.1 % (36.0-46.0); HGB 12.9 g/dL (11.2-15.7); Immature Grans % 0.3; MCH 28.6 pg (27.0-33.0); MCHC 31.4 % (32.0-36.0); MCV 91 fL (80-95); MPV 8.9 fL (8.0-11.0); Neutrophils % 78.1; Platelet Count 192 10^3/uL (130-400); RBC 4.51 10^6/uL (3.93-5.22); RDW 14.1 % (11.7-14.6); RDW-SD 46.9 fL; WBC 9.59 10^3/uL (4.4-10.8)
--- NOTE | 2022-07-22 13:00 | DI.RAD_ITS ---
Exam(s) XR CHEST 2V PA LATERAL EXAM: XR CHEST 2V PA LATERAL CLINICAL HISTORY: cough, sob, r/o acute disease. TECHNIQUE: 2D digital imaging was performed. COMPARISON: CR,XR XR PORTABLE CHEST AP from 04/18/2022 FINDINGS: 2 views: Heart size is normal. The mediastinum is not widened. Hyperinflation-COPD findings again noted. Left lung clear. Mild increased markings in lateral right lung base. No obvious pleural effusions. IMPRESSION: COPD-hyperinflation. Mild increased markings lateral right lung base. No pleural effusions. No pul monary edema. No pneumothorax. DATA REPOSITORY: RADIATION DOSE DELIVERED:
[2022-07-22 13:09] LABS: ALT 11 U/L (14-59); AST 9 U/L (15-37); Albumin 3.7 g/dL (3.4-5.0); Alkaline Phosphatase 83 U/L (46-116); BUN 8 mg/dL (7-18); Bilirubin, Total 0.2 mg/dL (0.2-1.0); CREATININE 0.7 mg/dL (0.55-1.02); Calcium 9.8 mg/dL (8.5-10.1); Chloride 100 mmol/L (98-107); Estimated GFR 89.02 (mL/min/1.73m2); Glucose 116 mg/dL (74-106); Magnesium 1.7 mg/dL (1.8-2.4); Potassium 3.9 mmol/L (3.5-5.1); Sodium 139 mmol/L (136-145); Total Protein 7.1 g/dL (6.4-8.2); Troponin I < 50 ng/L (<or=60)
[2022-07-22] MEDS: Normal Saline 500 ML IV (13:22)
[2022-07-22] MEDS: methylPREDNISolone SUCC 125 MG VIAL IVP (13:23)
[2022-07-22] MEDS: Ipratropium 0.5 MG/2.5 ML UPD VIAL UPD (13:24)
[2022-07-22] MEDS: Albuterol 2.5 MG/3 ML INH SOLN VIAL UPD (13:25)
[2022-07-22 13:32] LABS: COVID-19 PCR Negative (Negative); Influenza A PCR Negative (Negative); Influenza B PCR Negative (Negative); RSV PCR Negative (Negative)
[2022-07-22 13:36] LABS: Source Nasopharynx
[2022-07-22] MEDS: Albuterol 2.5 MG/3 ML INH SOLN VIAL 5 MG UPD (14:05)
[2022-07-22] MEDS: Levalbuterol 1.25 MG/3 ML UPD VIAL UPD ×2 (15:03→15:33)
[2022-07-22 17:53] LABS: Procalcitonin < 0.1 ng/mL
[2022-07-22] MEDS: Doxycycline Hyclate 100 MG CAP PO ×2 (18:37→19:38)
--- NOTE | 2022-07-22 21:04 | W.PM.HP.N ---
Date of service: 07/22/22 Time of Service: 21:04 Assessment and Plan Assessment and plan (1) Acute exacerbation of chronic obstructive pulmonary disease: Status: Acute Assessment and plan: continue steroids, add doxycycline. continue pulmonary toileting. (2) DVT prophylaxis: Status: Acute Assessment and plan: lovenox 30 mg daily, d/t BMI (3) Discharge planning issues: Status: Acute Assessment and plan: anticipate home with resumption of services once medically stable. discussed with DR Heck History of Present Illness History of Present Illness Chief Complaint: shortness of breath Narrative: This is a 77-year-old female with a history of COPD dependent on home O2 at 2 L nasal cannula oxygen, former smoker, fibromyalgia presented to the ED from home for decreased p.o. intake, generalized fatigue, cough with green sputum and increasing shortness of breath over the past few days. Work up in the ED concerning for copd exacerbation. Hemodynamically stable. she received multiple nebulizers, IV steroids and will be admitted for further management Review of Systems All systems reviewed & are unremarkable except as noted in HPI and below PFSH All Active Problems (Updated 07/22/22 @ 17:05 by Bouchra Hewitt DO) Acute exacerbation of chronic obstructive pulmonary disease (Acute) Dependence on supplemental oxygen (Acute) Right shoulder pain (Acute) Abnormal weight loss (Acute) Chronic respiratory failure with hypercapnia (Acute) Palliative care patient (Acute) Depression (Chronic) Protein calorie malnutrition (Acute) Chronic pain (Chronic) TERESA (acute kidney injury) (Acute) Acute on chronic respiratory failure with hypoxia and hypercapnia (Acute) Hyponatremia (Chronic) Epigastric pain (Acute) Discharge planning issues (Acute) DVT prophylaxis (Acute) COPD with acute exacerbation (Acute) Odynophagia (Acute) GERD (gastroesophageal reflux disease) (Chronic) Chronic obstructive pulmonary disease (Chronic) Lumbosacral spondylosis without myelopathy (Acute) Fibromyalgia (Acute) Fall (Acute) Low back pain (Acute) Discharge planning issues (Acute) T12 compression fracture (Acute) Hemoptysis (Acute) History of cataract removal with insertion of prosthetic lens (Acute 06/05/15) Status post appendectomy (Acute) Status post laminectomy (Acute) Pain from implanted hardware (Chronic 10/30/18) S/P Hardware removal Chronic anxiety (Chronic 06/22/13) Chronic emphysema syndrome (Chronic) Chronic pain in right shoulder (Chronic 11/20/13) Moderate protein malnutrition (Chronic 11/20/13) Neck pain (Acute) Irritable bowel syndrome with diarrhea (Chronic) History of tobacco abuse (Chronic) Anxiety (Chronic) Medical History (Updated 07/22/22 @ 17:05 by Bouchra Hewitt DO) Acute exacerbation of chronic obstructive pulmonary disease (COPD) C. difficile colitis Cervical neck pain with evidence of disc disease (06/22/13) Contusion of right knee, initial encounter DNI (do not intubate) DNR (do not resuscitate) LLL pneumonia (~03/30/18) Ongoing leg pain continue nSaid prn tramadol see surgeon next week consider topical analgesic on surrounding skin Pneumothorax, spontaneous, tension (04/11/10) POLST (Physician Orders for Life-Sustaining Treatment) Surgical History (Updated 06/29/22 @ 10:32 by Ralph Rahman MD) Appendectomy CHEST TUBE Extraction of cataract 06/05/15; LEFT EYE; DR. ARAUZ H/O section Hx of hysterectomy LAMINECTOMY CERVICAL SPINE Right femoral fracture (05/09/17) ORIF DOS: 05/10/17 Dr. Bob Family History Mother , at age 89, cardiac problems No problems noted. Father , at 81 Cancer Throat cancer Brother , at 71 Colon cancer Sister Diabetes DM2 Sister Diabetes DM2 Son No problems noted. Social History Smoking/Tobacco Use Status: Former Tobacco Use Quit Date: 09/16/13 Pack-years: 50 Smoking risk assessment performed?: Yes Alcohol Intake: former Year quit: 1979 Drug use: Never Substance use type: does not use Household members: none Housing: apartment Do you feel safe at home: Yes Do you feel safe in your relationship?: No Additional Social history: 16 years ago. Originally from [place], moved here to be near son and grand children. [place] House[place]. Enjoys contact with 4 grandchildren throughout the day (they are homeschooled and her home much of the time). Bedbound approximately 22 hours a day. On disability due to chronic back pain. 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 Approximate 75 pack year history of tobacco. No alcohol or illicit drug use endorsed. Meds Allergies and Home Medications Allergies Allergy/AdvReac Type Severity Reaction Status Date / Time No Known Allergies Allergy Verified 02/13/22 07:59 Home Medications Medication Instructions Recorded Confirmed Type camphor-methyl salicylate-menthol 1 ea topical .DAILY X 12 HOURS PRN 11/10/16 06/29/22 History topical patch (Salonpas topical Pain patch) Oxygen #1 ea 12/12/18 07/22/22 History naloxone 4 mg/actuation nasal 1 spray intranasal Q2-3M PRN 04/18/19 07/22/22 Rx spray (Narcan) opioid overdose #2 ea cholecalciferol (vitamin D3) 50 3,000 unit PO DAILY 05/10/19 07/22/22 History mcg (2,000 unit) tablet (Vitamin D3) roflumilast 500 mcg tablet 500 mcg PO DAILY #90 tab-caps 06/02/21 07/22/22 Rx (Daliresp) fluticasone fur. 100 mcg-umeclid 1 inh inhalation DAILY #28 ea 07/22/21 07/22/22 Rx 62.5 mcg-vilant 25 mcg inhalat.powder (Trelegy Ellipta) sertraline 100 mg tablet 100 mg PO DAILY #90 tab-caps 08/14/21 07/22/22 Rx vit C 250 mg-vit E 90 mg-zinc 40 2 cap PO DAILY 08/21/21 07/22/22 History mg-copper 1 [id number] capsule (PreserVision AREDS-2) acetaminophen 500 mg tablet 1,000 mg PO Q8H PRN pain #90 tabs 09/15/21 07/22/22 Rx sodium chloride-potassium chloride 1 tab PO BID #60 tabs 01/31/22 06/29/22 Rx 287 mg-180 mg-15 mg tablet (Thermotabs) sucralfate 1 gram tablet 1 g PO AC & HS #120 tabs 02/23/22 07/22/22 Rx diphenhydramine HCl 50 mg capsule 50 mg PO QHS #1 cap 03/05/22 06/29/22 Rx gabapentin 100 mg capsule 100 mg PO TID #90 caps 04/06/22 07/22/22 Rx calcium carbonate 600 mg calcium 3 - 4 tab PO TID PRN PRN Heartburn 04/11/22 07/22/22 History (1.5 gram) chewable tablet cranberry extract-vitamin C 250 1 cap PO DAILY 04/11/22 07/22/22 History mg-60 mg capsule cyclosporine 0.05 % eye drops in a 1 drp ophthalmic (eye) BID 04/11/22 06/29/22 History dropperette (Restasis) doxylamine succinate 25 mg tablet 25 mg PO QHS PRN Insomnia 04/11/22 07/22/22 History ipratropium 0.5 mg-albuterol 3 mg 3 ml UPD TID #180 mL 04/23/22 07/22/22 Rx (2.5 mg base)/3 mL nebulization soln diclofenac sodium 1 % topical gel 2 g topical QID PRN pain #100 grams 04/27/22 07/22/22 Rx clonazepam 1 mg tablet 1 mg PO TID PRN anxiety #90 tabs 05/06/22 07/22/22 Rx morphine concentrate 100 mg/5 mL See Rx Instructions PO Q1H PRN #30 05/14/22 06/29/22 Rx (20 mg/mL) oral solution mL mirtazapine 15 mg tablet 15 mg PO HS #90 tabs 05/24/22 07/22/22 Rx buprenorphine 10 mcg/hour weekly 1 patch transdermal Q7D #4 ea 06/21/22 07/22/22 Rx transdermal patch (Butrans) acetylcysteine 600 mg capsule See Rx Instructions .Route 06/28/22 06/29/22 Rx .COMPLEX #90 caps omeprazole 40 mg capsule,delayed 40 mg PO DAILY #30 caps 06/28/22 07/22/22 Rx release Exam Const General: cooperative, no acute distress and ill appearing chronically Orientation: alert, awake and oriented x3 HENMT Head: normal to inspection Eyes General: appearance normal, both eyes and all related structures Pupils: PERRL EOM: EOM intact bilaterally Neck Neck: normal visual inspection Chest Chest: normal inspection of the chest and no tenderness Resp Effort & Inspection: normal respiratory effort and able to speak in complete sentences Auscultation: diminished lung sounds bilaterally throughout Cardio Rate: tachycardic Rhythm: regular rhythm GI Inspection: normal to inspection Palpation: soft Skin General skin exam: no rashes or lesions noted Neuro General: patient alert, patient awake and patient oriented x3 Cognition: normal cognition Speech: speech normal Motor: muscle tone normal throughout Sensory Exam: no sensory deficits noted Extrem General: normal to inspection, full ROM, capillary refill normal, no calf tenderness bilaterally and no edema Psych Appearance: grossly normal Mental Status: mental status grossly normal Speech and Movement: speech and movement normal Affect: normal affect Results Labs 07/22/22 12:32 07/22/22 12:32 Labs: Laboratory Results - last 24 hr 07/22/22 07/22/22 07/22/22 12:32 12:32 12:32 WBC 9.59 RBC 4.51 Hgb 12.9 Hct 41.1 MCV 91 MCH 28.6 MCHC 31.4 L RDW 14.1 Plt Count 192 MPV 8.9 Immature Gran % 0.3 Neutrophils % 78.1 Lymphocytes % 14.0 Monocytes % 6.0 Eosinophils % 1.3 Basophils % 0.3 Nucleated RBC % 0.0 Absolute Neutrophils 7.49 H Absolute Lymphocytes 1.34 Absolute Monocytes 0.58 Absolute Eosinophils 0.12 Absolute Basophils 0.03 Sodium 139 Potassium 3.9 Chloride 100 Carbon Dioxide 38.0 H Anion Gap 1.0 L BUN 8 Creatinine 0.7 Est GFR (CKD-EPI 2020) 89.02 Glucose 116 H Calcium 9.8 Magnesium 1.7 L Total Bilirubin 0.2 AST 9 L ALT 11 L Alkaline Phosphatase 83 Troponin I < 50 Total Protein 7.1 Albumin 3.7 Procalcitonin COVID-19 Source Nasopharynx SARS-CoV-2 (PCR) Negative Influenza Type A (PCR) Negative Influenza Type B (PCR) Negative RSV (PCR) Negative 07/22/22 12:32 WBC RBC Hgb Hct MCV MCH MCHC RDW Plt Count MPV Immature Gran % Neutrophils % Lymphocytes % Monocytes % Eosinophils % Basophils % Nucleated RBC % Absolute Neutrophils Absolute Lymphocytes Absolute Monocytes Absolute Eosinophils Absolute Basophils Sodium Potassium Chloride Carbon Dioxide Anion Gap BUN Creatinine Est GFR (CKD-EPI 2020) Glucose Calcium Magnesium Total Bilirubin AST ALT Alkaline Phosphatase Troponin I Total Protein Albumin Procalcitonin < 0.1 COVID-19 Source SARS-CoV-2 (PCR) Influenza Type A (PCR) Influenza Type B (PCR) RSV (PCR) Last Vital Signs Temp 37.7 C H 07/22/22 18:00 Pulse 112 H 07/22/22 18:00 Resp 22 07/22/22 18:00 BP 119/66 07/22/22 18:00 Pulse Ox 91 L 07/22/22 18:00 Time Spent Time spent with Patient: 40-54 minutes Time was spent: preparing to see the patient(eg.review tests), obtaining and/or reviewing separately otained hiistory, ordering medications,tests, procedures, indepentently interpreting results and counseling the patient
[2022-07-22] MEDS: diphenhydrAMINE 25 MG CAP 50 MG PO (22:00)
[2022-07-22] MEDS: Mirtazapine 15 MG TAB PO (22:00)
[2022-07-22] MEDS: Sucralfate 1 GM TAB PO (22:01)
[2022-07-22] MEDS: clonazePAM 1 MG TAB PO (22:01)
[2022-07-23] VITALS (8 sets, daily range): BP systolic 101–127; BP diastolic 60–74; PULSE 73–107; RESP 14–24; TEMP 36–37.2; O2SAT 90–94
[2022-07-23] MEDS: clonazePAM 1 MG TAB PO ×4 (06:00→21:15)
[2022-07-23] MEDS: Acetaminophen 500 MG TAB 1000 MG PO (06:00)
[2022-07-23] MEDS: Diclofenac 1% Gel 100 GM TUBE TP ×2 (06:25→21:17)
[2022-07-23] MEDS: Ondansetron 4 MG/2 ML VIAL IVP (06:28)
[2022-07-23] MEDS: Enoxaparin 30 MG/0.3 ML SYR SC (08:54)
[2022-07-23] MEDS: Omeprazole 20 MG CAPCR 40 MG PO (08:55)
[2022-07-23] MEDS: Salt Supplement (BUFFERED) TAB 1 TAB PO ×2 (08:55→21:16)
[2022-07-23] MEDS: Sucralfate 1 GM TAB PO ×4 (08:55→21:16)
[2022-07-23] MEDS: Sertraline 100 MG TAB PO (08:55)
[2022-07-23] MEDS: Gabapentin 100 MG CAP PO ×3 (08:55→21:16)
[2022-07-23] MEDS: Cholecalciferol (Vitamin D3) 1,000 UNIT TAB 3000 UNITS PO (08:55)
[2022-07-23] MEDS: Acetylcysteine 600 MG CAP PO (08:55)
[2022-07-23] MEDS: Roflumilast 500 MCG TAB PO (08:55)
[2022-07-23] MEDS: predniSONE 20 MG TAB 40 MG PO (08:56)
[2022-07-23] MEDS: Doxycycline Hyclate 100 MG CAP PO ×2 (08:56→21:16)
[2022-07-23] MEDS: Ipratropium/Albuterol 4 GM 120 PUFF INH IH ×4 (09:00→20:15)
--- NOTE | 2022-07-23 09:25 | INITIAL_ITS ---
- If Service Date Differs Date of service: 07/23/22 Time of Service: 09:25 Care Management Initial Assess REASON FOR HOSPITALIZATION:: COPD PAST MEDICAL HISTORY/PAST SURGICAL HISTORY:: All Active Problems (Updated 07/22/22 @ 17:05 by Bouchra Hewitt DO). Acute exacerbation of chronic obstructive pulmonary disease (Acute). Dependence on supplemental oxygen (Acute). Right shoulder pain (Acute). Abnormal weight loss (Acute). Chronic respiratory failure with hypercapnia (Acute). Palliative care patient (Acute). Depression (Chronic). Protein calorie malnutrition (Acute). Chronic pain (Chronic). TERESA (acute kidney injury) (Acute). Acute on chronic respiratory failure with hypoxia and hypercapnia (Acute). Hyponatremia (Chronic). Epigastric pain (Acute). Discharge planning issues (Acute). DVT prophylaxis (Acute). COPD with acute exacerbation (Acute). Odynophagia (Acute). GERD (gastroesophageal reflux disease) (Chronic). Chronic obstructive pulmonary disease (Chronic). Lumbosacral spondylosis without myelopathy (Acute). Fibromyalgia (Acute). Fall (Acute). Low back pain (Acute). Discharge planning issues (Acute). T12 compression fracture (Acute). Hemoptysis (Acute). History of cataract removal with insertion of prosthetic lens (Acute 06/05/15). Status post appendectomy (Acute). Status post laminectomy (Acute). Pain from implanted hardware (Chronic 10/30/18). S/P Hardware removal. Chronic anxiety (Chronic 06/22/13). Chronic emphysema syndrome (Chronic). Chronic pain in right shoulder (Chronic 11/20/13). Moderate protein malnutrition (Chronic 11/20/13). Neck pain (Acute). Irritable bowel syndrome with diarrhea (Chronic). History of tobacco abuse (Chronic). Anxiety (Chronic). Medical History (Updated 07/22/22 @ 17:05 by Bouchra Hewitt DO). Acute exacerbation of chronic obstructive pulmonary disease (COPD). C. difficile colitis. Cervical neck pain with evidence of disc disease (06/22/13). Contusion of right knee, initial encounter. DNI (do not intubate). DNR (do not resuscitate). LLL pneumonia (~03/30/18). Ongoing leg pain. continue nSaid. prn tramadol. see surgeon next week. consider topical analgesic on surrounding skin. Pneumothorax, spontaneous, tension (04/11/10). POLST (Physician Orders for Life-Sustaining Treatment). Surgical History (Updated 06/29/22 @ 10:32 by Ralph Rahman MD). Appendectomy. CHEST TUBE. Extraction of cataract. 06/05/15; LEFT EYE; DR. ARAUZ. H/O section. Hx of hysterectomy. LAMINECTOMY. CERVICAL SPINE. Right femoral fracture (05/09/17). ORIF. DOS: 05/10/17. Dr. Bob PREVIOUS FUNCTIONAL STATUS/SOCIAL/FAMILY SUPPORTS:: Laney lives in [place] in an inlaw apartment in her son Stanley's home along with his Bree and their 4 children. Her family, including the children, are very helpful and supportive. Laney uses 2L of nasal O2 at baseline which she receives from [facility] [employer] [facility] and uses a walker or furniture surfing to ambulate in her home. She no longer drives and rarely goes out. Per pt, her doctors appointments are primarily virtual at this point, because it's difficult for her to leave the house. CURRENT FUNCTIONAL STATUS:: Laney was lying in bed when CM met with her. She is awake and easily engages in conversation. She no longer receives H services and is really not interested in restarting services. Per pt, she found H nursing to be helpful, but not PT. ADVANCE DIRECTIVES:: None on file. Has patient been provided with info about the portal/API?: Yes Did the patient sign up for the portal?: Yes (Prior to admission) CODE STATUS:: DNR/DNI (COLST on File) INSURANCE COVERAGE / FINANCIAL ISSUES:: Medicaid. Medicare CURRENT HOME/COMMUNITY SERVICES/EQUIPMENT:: O2 through [employer]. Walker. Followed by Palliative PRIMARY CARE PHYSICIAN:: Ralph Rahman POTENTIAL DISCHARGE NEEDS:: Discharge plan of care, transportation, [facility] services (if indicated). PATIENT/FAMILY EDUCATION NEEDS:: review of discharge instructions, limitations, activity, follow up plan, Ask Me Three discussion. TRANSPORTATION:: via private vehivcle with family PLAN:: Anticipate, Laney will discharge home with [facility] services (if indicated) once medically stable per provider. She will transport via private vehicle with family and follow up with community providers and discharge plan of care as prescribed. CM will continue to follow.
[2022-07-23] MEDS: Normal Saline Flush 10 ML SYR IVP ×2 (10:30→12:07)
[2022-07-23] MEDS: MAGNESIUM SULFATE 1 GM/100 ML BAG IVPB (10:30)
--- NOTE | 2022-07-23 12:28 | W.PM.PROGNOT ---
Date of Service Date of service: 07/23/22 Time of Service: 12:28 Assessment and Plan Assessment and plan (1) Acute exacerbation of chronic obstructive pulmonary disease: Status: Acute Assessment and plan: continue steroids, add doxycycline day 2. continue pulmonary toileting. (2) DVT prophylaxis: Status: Acute Assessment and plan: lovenox 30 mg daily, d/t BMI (3) Discharge planning issues: Status: Acute Assessment and plan: anticipate home with resumption of services once medically stable. discussed with DR Heck Subjective Subjective Patient reports: no new complaints, feels better, tolerating liquids well, voiding w/o difficulty, shortness of breath and afebrile; denies tolerating a regular diet (poor po intake at baseline) Exam Const General: cooperative, no acute distress and ill appearing chronically Orientation: alert, awake and oriented x3 HENMT Head: normal to inspection Eyes General: appearance normal, both eyes and all related structures Pupils: PERRL EOM: EOM intact bilaterally Neck Neck: normal visual inspection Chest Chest: normal inspection of the chest and no tenderness Resp Effort & Inspection: normal respiratory effort and able to speak in complete sentences Auscultation: diminished lung sounds bilaterally throughout Cardio Rate: tachycardic Rhythm: regular rhythm GI Inspection: normal to inspection Palpation: soft Skin General skin exam: no rashes or lesions noted Neuro General: patient alert, patient awake and patient oriented x3 Cognition: normal cognition Speech: speech normal Motor: muscle tone normal throughout Sensory Exam: no sensory deficits noted Extrem General: normal to inspection, full ROM, capillary refill normal, no calf tenderness bilaterally and no edema Psych Appearance: grossly normal Mental Status: mental status grossly normal Speech and Movement: speech and movement normal Affect: normal affect Objective Last Vital Signs Temp 37.2 C 07/23/22 07:51 Pulse 107 H 07/23/22 07:51 Resp 24 07/23/22 07:51 BP 127/74 07/23/22 07:51 Pulse Ox 94 07/23/22 07:51 Laboratory Results - last 24 hr 07/22/22 07/22/22 07/22/22 12:32 12:32 12:32 WBC 9.59 RBC 4.51 Hgb 12.9 Hct 41.1 MCV 91 MCH 28.6 MCHC 31.4 L RDW 14.1 Plt Count 192 MPV 8.9 Immature Gran % 0.3 Neutrophils % 78.1 Lymphocytes % 14.0 Monocytes % 6.0 Eosinophils % 1.3 Basophils % 0.3 Nucleated RBC % 0.0 Absolute Neutrophils 7.49 H Absolute Lymphocytes 1.34 Absolute Monocytes 0.58 Absolute Eosinophils 0.12 Absolute Basophils 0.03 Sodium 139 Potassium 3.9 Chloride 100 Carbon Dioxide 38.0 H Anion Gap 1.0 L BUN 8 Creatinine 0.7 Est GFR (CKD-EPI 2020) 89.02 Glucose 116 H Calcium 9.8 Magnesium 1.7 L Total Bilirubin 0.2 AST 9 L ALT 11 L Alkaline Phosphatase 83 Troponin I < 50 Total Protein 7.1 Albumin 3.7 Procalcitonin COVID-19 Source Nasopharynx SARS-CoV-2 (PCR) Negative Influenza Type A (PCR) Negative Influenza Type B (PCR) Negative RSV (PCR) Negative 07/22/22 12:32 WBC RBC Hgb Hct MCV MCH MCHC RDW Plt Count MPV Immature Gran % Neutrophils % Lymphocytes % Monocytes % Eosinophils % Basophils % Nucleated RBC % Absolute Neutrophils Absolute Lymphocytes Absolute Monocytes Absolute Eosinophils Absolute Basophils Sodium Potassium Chloride Carbon Dioxide Anion Gap BUN Creatinine Est GFR (CKD-EPI 2020) Glucose Calcium Magnesium Total Bilirubin AST ALT Alkaline Phosphatase Troponin I Total Protein Albumin Procalcitonin < 0.1 COVID-19 Source SARS-CoV-2 (PCR) Influenza Type A (PCR) Influenza Type B (PCR) RSV (PCR) Time Spent with Patient Time Spent with Patient: 25-34 minutes Time was spent: preparing to see the patient(eg.review tests), obtaining and/or reviewing separately otained hiistory, ordering medications,tests, procedures, referring, communicating with other health child care centre director and indepentently interpreting results
--- NOTE | 2022-07-23 14:23 | IN_ITS ---
Date of service: 07/23/22 Time of Service: 13:45 PT Notes Visit Reasons: COPD Exacerbation Inpatient Physical Therapy Initial evaluation Date: 07/23/2022 Referring Doctor: Danielle Johnson NP PT Orders: PT CONSULT: Eval/Treat Precautions: Fall. Standard. Activity as tolerated. Patient Profile/Admitting Diagnosis: Laney is a 77-year-old palliative care female patient with past medical history significant for longstanding COPD, fibromyalgia, GERD, who presented to ED on 07/22/2022 due to decreased p.o. intake, general fatigue, greenish sputum, and worsening shortness of breath.? Patient is admitted for management of COPD exacerbation. PMHX: All Active Problems?(Updated 07/22/22 @ 17:05 by Bouchra Hewitt DO) Acute exacerbation of chronic obstructive pulmonary disease (Acute) Dependence on supplemental oxygen (Acute) Right shoulder pain (Acute) Abnormal weight loss (Acute) Chronic respiratory failure with hypercapnia (Acute) Palliative care patient (Acute) Depression (Chronic) Protein calorie malnutrition (Acute) Chronic pain (Chronic) TERESA (acute kidney injury) (Acute) Acute on chronic respiratory failure with hypoxia and hypercapnia (Acute) Hyponatremia (Chronic) Epigastric pain (Acute) Discharge planning issues (Acute) DVT prophylaxis (Acute) COPD with acute exacerbation (Acute) Odynophagia (Acute) GERD (gastroesophageal reflux disease) (Chronic) Chronic obstructive pulmonary disease (Chronic) Lumbosacral spondylosis without myelopathy (Acute) Fibromyalgia (Acute) Fall (Acute) Low back pain (Acute) Discharge planning issues (Acute) T12 compression fracture (Acute) Hemoptysis (Acute) History of cataract removal with insertion of prosthetic lens (Acute 06/05/15) Status post appendectomy (Acute) Status post laminectomy (Acute) Pain from implanted hardware (Chronic 10/30/18) S/P Hardware removal Chronic anxiety (Chronic 06/22/13) Chronic emphysema syndrome (Chronic) Chronic pain in right shoulder (Chronic 11/20/13) Moderate protein malnutrition (Chronic 11/20/13) Neck pain (Acute) Irritable bowel syndrome with diarrhea (Chronic) History of tobacco abuse (Chronic) Anxiety (Chronic) Medical History?(Updated 07/22/22 @ 17:05 by Bouchra Hewitt DO) Acute exacerbation of chronic obstructive pulmonary disease (COPD) C. difficile colitis Cervical neck pain with evidence of disc disease (06/22/13) Contusion of right knee, initial encounter DNI (do not intubate) DNR (do not resuscitate) LLL pneumonia (~03/30/18) Ongoing leg pain continue nsaid prn tramadol consider topical analgesic on surrounding skin Pneumothorax, spontaneous, tension (04/11/10) POLST (Physician Orders for Life-Sustaining Treatment) Surgical History?(Updated 06/29/22 @ 10:32 by Ralph Rahman MD) Appendectomy CHEST TUBE Extraction of cataract 06/05/15; LEFT EYE; DR. ARAUZ H/O section Hx of hysterectomy LAMINECTOMY CERVICAL SPINE Right femoral fracture (05/09/17) ORIF DOS: 05/10/17 Dr. Bob Social History/Home Situation: Patient lives in [id number] apartment with her daughter and grandchildren.? 5 steps with railing upon entry.? No longer driving.? Patient states she is independent in her own home with FWW Equipment Owned/DME: ? Four-wheeled walker Subjective:? Agreeable to consult. Bothered about R leg not moving as she wants it to. Objective:?? General Observation: Supine in bed. On oxygen supplementation at 2 L of oxygen per minute via NC Mental Status: Alert and oriented as to person, place, and purpose Pain: Pain in R leg at 3-4/10 Vital Signs: WNL as monitored by nursing staff ROM: Right Upper Extremity: Shoulder Flexion WFL. Shoulder abduction WFL. Elbow flexion WFL. Wrist flexion WFL. Functional opening and closing of hand WFL. Left Upper Extremity: Shoulder Flexion WFL. Shoulder abduction WFL. Elbow flexion WFL. Wrist flexion WFL. Functional opening and closing of hand WFL. Right Lower Extremity: Hip flexion WFL. Hip abduction WFL. Knee flexion WFL. Ankle dorsiflexion WFL. Ankle plantarflexion WFL. Left Lower Extremity: Hip flexion WFL. Hip abduction WFL. Knee flexion WFL. Ankle dorsiflexion WFL. Ankle plantarflexion WFL. Strength: Right Upper Extremity: Shoulder flexors 4-/5. Shoulder abductors 4-/5. Elbow flexors 4-/5. Elbow extensors 4-/5. Composition Stone Applicator strong. Left Upper Extremity: Shoulder flexors 4-/5. Shoulder abductors 4-/5. Elbow flexors 4-/5. Elbow extensors 4-/5. Composition Stone Applicator strong. Right Lower Extremity: Hip flexors 3+/5. Hip abductors 3+/5. Knee flexors 4-/5. Knee extensors 3+/5. Ankle dorsiflexors 3/5. Ankle plantarflexors 3+/5. Left Lower Extremity: Hip flexors 4/5. Hip abductors 4/5. Knee flexors 4/5. Knee extensors 4-/5. Ankle dorsiflexors 3/5. Ankle plantarflexors 3+/5. Sensation:? Intact as to pain and light touch in B U/E/LE BED MOBILITY/TRANSFERS: Sit-supine: Standby assist Sit-stand: Contact-guard assist? Stand-sit: Contact-guard assist ? GAIT? Assistive Device: FWW ? Weight bearing: Full Assist: Minimal assist ? Distance: 15 feet +5 feet ? Deviation: R LE mildly uncoordinated requiring minimal assist for safety; required cueing to advance weaker R LE first during short distance ambulation and for energy conservation technique THERA EX: Ankle DF/PF x10 Heel slides x10 Chest expansion exercises with DBE x 5 Balance:? Static Sitting: Normal Dynamic Sitting: Good Static Standing: Fair Dynamic Standing: Fair Special Tests: Mobility Limitations Standardized Measure [facility]-PAC 6 clicks Basic Mobility Inpatient Short Form: Raw Score: ? 18? Standardized Score: ? CMS Score:? 47% Informed Consent/Education:? Patient instructed in purpose of PT consult and plan of care. Assessment:?? Laney is a 77-year-old palliative care female patient with past medical history significant for long-standing COPD, fibromyalgia, GERD, who presented to ED on 07/22/2022 due to decreased p.o. intake, general fatigue, greenish sputum, and worsening shortness of breath.? Patient is admitted for management of COPD exacerbation. Patient presents with clinical signs and symptoms consistent with above diagnosis, as demonstrated by the following impairment level findings: 1. Decreased strength to B UE/LE 2. Shortness of breath 3. Impaired coordination in R LE 4. Gait instability 5. Impaired standing balance 6. Imapired activity tolerance Impairments are contributing to the following functional limitations: 1. Increased completion time for mobility ADL performance 2. Increased risk for falls 3. Difficulty with managing steps alone safely 4. Difficullty with walking 5. Increased risk for falls Goals: Goals X1 week 1. Supine-Sit: Independent 2. Sit-Supine: Independent 3. Sit-Stand: Independent 4. Stand-Sit : Independent 5. Bed-Chair: Independent 6. Chair-Bed: Independent 7. Gait: Patient ambulates 100 feet with use of front wheel walker with SBA 8. Stairs: Independent with performing 5 stairs with railing with standby assist? ? DISCHARGE RECOMMENDATIONS:? [] ? Home with no services [][] []?Home with services [] ? Home with outpatient PT [] [] ? SNF for continued rehabilitation [] [] ? [facility] [] [] ? SNF versus LTC based on ability to participate and progress [] [X] HH PT vs SNF based on progress towards goals TREATMENT CODE/TIME:? 42796 x 20 minutes, 10329 x 11 minutes beginning at 13:45 PM. Thank you for the opportunity to participate in the care of this patient. Teresita Lopez PT, DPT, CLT [facility] [place], [place]
[2022-07-23] MEDS: Mirtazapine 15 MG TAB PO (21:15)
[2022-07-23] MEDS: diphenhydrAMINE 25 MG CAP 50 MG PO (21:16)
[2022-07-24] VITALS (16 sets, daily range): BP systolic 111–123; BP diastolic 61–70; PULSE 11–116; RESP 10–22; TEMP 36.5–36.7; O2SAT 80–97
--- NOTE | 2022-07-24 | DI.RAD_ITS ---
Exam(s) XR PORTABLE CHEST AP EXAM: XR PORTABLE CHEST AP CLINICAL HISTORY: Respiratory failure TECHNIQUE: 2D digital imaging was performed of the chest. Two images were obtained. AP views were obtained. COMPARISON: CR,XR XR PORTABLE CHEST AP from 04/18/2022 FINDINGS: MEDIASTINUM: Normal. HEART: Normal. PULMONARY VASCULATURE: Normal. LUNGS: There is a new infiltrate in the left lung base. The lungs are otherwise stable. They are hy perinflated suggesting underlying COPD. There is underlying pulmonary fibrosis. PLEURAL SPACE: No pleural effusion or pneumothorax. BONE:Within normal limits for the patient's age. OTHER FINDINGS:Normal. IMPRESSION: New left basilar infiltrate which may represent pneumonia. Please correlate clinically. DATA REPOSITORY: RADIATION DOSE DELIVERED:
[2022-07-24 06:59] LABS: Abs Immature Grans 0.02 10^3/uL (0.0-0.06); Absolute Basophil Count 0.01 10^3/uL (0.0-0.2); Absolute Eosinophil Count 0.01 10^3/uL (0.0-0.7); Absolute Lymphocyte Count 1.22 10^3/uL (1.2-3.4); Absolute Monocyte Count 0.62 10^3/uL (0.1-0.8); Absolute Neutrophil Count 5.95 10^3/uL (1.2-6.7); Basophils % 0.1; Eosinophils % 0.1; HCT 38.8 % (36.0-46.0); HGB 11.9 g/dL (11.2-15.7); Immature Grans % 0.3; Lymphocytes % 15.6; MCH 28.5 pg (27.0-33.0); MCHC 30.7 % (32.0-36.0); MCV 93 fL (80-95); MPV 9.4 fL (8.0-11.0); Monocytes % 7.9; Platelet Count 194 10^3/uL (130-400); RBC 4.17 10^6/uL (3.93-5.22); RDW 14.2 % (11.7-14.6); WBC 7.83 10^3/uL (4.4-10.8)
[2022-07-24 07:25] LABS: Anion Gap -0.4 mmol/L (3-11); BUN 12 mg/dL (7-18); CO2 39.4 mmol/L (21.0-32.0); CREATININE 0.7 mg/dL (0.55-1.02); Calcium 9.6 mg/dL (8.5-10.1); Chloride 99 mmol/L (98-107); Estimated GFR 89.02 (mL/min/1.73m2); Glucose 94 mg/dL (74-106); Magnesium 1.9 mg/dL (1.8-2.4); Potassium 4.6 mmol/L (3.5-5.1); Sodium 138 mmol/L (136-145)
[2022-07-24] MEDS: Roflumilast 500 MCG TAB PO (07:38)
[2022-07-24] MEDS: Omeprazole 20 MG CAPCR 40 MG PO (07:38)
[2022-07-24] MEDS: Acetylcysteine 600 MG CAP PO (07:38)
[2022-07-24] MEDS: Cholecalciferol (Vitamin D3) 1,000 UNIT TAB 3000 UNITS PO (07:38)
[2022-07-24] MEDS: Sertraline 100 MG TAB PO (07:38)
[2022-07-24] MEDS: Enoxaparin 30 MG/0.3 ML SYR SC (07:38)
[2022-07-24] MEDS: Sucralfate 1 GM TAB PO ×3 (07:39→21:29)
[2022-07-24] MEDS: Gabapentin 100 MG CAP PO ×3 (07:39→19:36)
[2022-07-24] MEDS: predniSONE 20 MG TAB 40 MG PO (07:39)
[2022-07-24] MEDS: Doxycycline Hyclate 100 MG CAP PO ×2 (07:39→19:37)
[2022-07-24] MEDS: Diclofenac 1% Gel 100 GM TUBE TP ×3 (07:46→22:29)
[2022-07-24] MEDS: clonazePAM 1 MG TAB PO ×3 (09:20→19:37)
[2022-07-24] MEDS: Ipratropium/Albuterol 4 GM 120 PUFF INH IH ×4 (09:30→19:40)
--- NOTE | 2022-07-24 09:41 | PT.INTREAT ---
Date of service: 07/24/22 Time of Service: 09:41 PT Notes Visit Reasons: COPD Exacerbation 07/24/2022 Hold PT today, per nursing as patient is hypoxic. Will attempt to resume PT services on Tuesday morning, if appropriate.
[2022-07-24 09:58] LABS: BE (Venous) 11 mmol/L (-2-3); HCO3 (Venous) 38 mmol/L (23-28); O2 Sat (Venous) 30 %; TCO2 (Venous) 36 mmol/L (24-29); pH (Venous) 7.28 (7.31-7.41); pO2 (Venous) 20 mmHg
[2022-07-24 10:12] LABS: pCO2 (Venous) 81 mmHg (41-51)
--- NOTE | 2022-07-24 12:35 | DI.VRAD_ITS ---
PROCEDURE INFORMATION: Exam: XR Chest Exam date and time: 07/24/2022 11:51 AM Age: 77 years old Clinical indication: Other: Respiratory failure TECHNIQUE: Imaging protocol: Radiologic exam of the chest. Views: 1 view. COMPARISON: CR XR CHEST 2V PA LATERAL 07/22/2022 1:53 PM FINDINGS: Lungs: Lung volumes are increased suggestive of COPD. There is interstitial prominence, greatest at the lung bases. There are patchy airspace opacities most prominent at the left lung base. Pleural spaces: A large pleural effusion, or pneumothorax is not seen Heart/Mediastinum: Heart, mediastinum are unchanged . Hilar prominence may be related to the pulmonary arteries. Vasculature: Vascular calcification is noted Bones/joints: There is no new bony abnormality. Degenerative changes are seen in the spine. There are mild compression deformities in the lower thoracic spine also previously noted. IMPRESSION: COPD. Nonspecific interstitial prominence may be related to chronic change. Patchy airspace opacities greatest at the left lung base. Findings may represent pneumonia. Clinical correlation, follow-up recommended. Dictated and Authenticated by: Delfina Doss MD. Ordering:DEA Espinoza MD
--- NOTE | 2022-07-24 14:38 | PGE_ITS ---
Date of Service Date of service: 07/24/22 Time of Service: 14:39 Assessment and Plan Assessment and plan (1) Acute exacerbation of chronic obstructive pulmonary disease: Status: Acute Assessment and plan: continue steroids, doxycycline day 4. continue pulmonary toileting. SPO2 in am on 3 LPM NC > 88% - on BiPap in the lisa, 01/20 (2) LLL pneumonia: Status: Acute Assessment and plan: as above Fevers today will get CXR (3) Acute on chronic respiratory failure with hypoxia and hypercapnia: Status: Acute Assessment and plan: Continues to have increased difficulty breathing and has SPO2 in the high 80s. She is coughing up yellow sputum. Specimen pending. CXR BC Urine step and legionella pending MRSA pending (4) Chronic respiratory failure with hypercapnia: Status: Acute Assessment and plan: As above (5) TERESA (acute kidney injury): Status: Acute Assessment and plan: Trend BUN 11 / Creat 0.6 (6) Dependence on supplemental oxygen: Status: Acute Assessment and plan: On oxygen at home and has [employer] Machine which she will send for. (7) Depression: Status: Chronic Assessment and plan: Continue home meds; Sertraline (8) Protein calorie malnutrition: Status: Acute Assessment and plan: Offer protein inbetween meals/shakes (9) DVT prophylaxis: Status: Acute Assessment and plan: lovenox 30 mg daily, d/t BMI - per NIH Specifically, [id number] patients may benefit from 30 mg subcutaneously daily for VTE prophylaxis (10) Discharge planning issues: Status: Acute Assessment and plan: anticipate home with resumption of services once medically stable - consider hospice discussed with Dr. Reyes Subjective Subjective Patient reports: no new complaints, tolerating liquids well, bowel movement, shortness of breath (Continues to have marked SOB) and afebrile; denies flatus, diarrhea, nausea or vomiting Interval history since last seen: Awake and alert, does have significant increased work of breathing. Discussion related to extent of treatment and options. She continues to want non invasive tx. Exam Const General: cooperative, no acute distress and ill appearing chronically Orientation: alert, awake and oriented x3 HENMT Head: normal to inspection Eyes General: appearance normal, both eyes and all related structures Pupils: PERRL EOM: EOM intact bilaterally Neck Neck: normal visual inspection Chest Chest: normal inspection of the chest and no tenderness Resp Effort & Inspection: normal respiratory effort, able to speak in complete sentences, cough and tachypneic (at times of increased exertion) Auscultation: crackles (LLL) and diminished lung sounds bilaterally throughout Cardio Rate: tachycardic Rhythm: regular rhythm GI Inspection: normal to inspection Palpation: soft Skin General skin exam: no rashes or lesions noted Neuro General: patient alert, patient awake and patient oriented x3 Cognition: normal cognition Speech: speech normal Motor: muscle tone normal throughout Sensory Exam: no sensory deficits noted Extrem General: normal to inspection, full ROM, capillary refill normal, no calf tenderness bilaterally and no edema Psych Appearance: grossly normal Mental Status: mental status grossly normal Speech and Movement: speech and movement normal Affect: normal affect Objective Last Vital Signs Temp 36.7 C 07/24/22 06:48 Pulse 11 L 07/24/22 11:00 Resp 20 07/24/22 11:00 BP 123/70 07/24/22 06:48 Pulse Ox 89 L 07/24/22 12:35 Laboratory Results - last 24 hr 07/24/22 07/24/22 07/24/22 06:15 06:15 09:55 WBC 7.83 RBC 4.17 Hgb 11.9 Hct 38.8 MCV 93 MCH 28.5 MCHC 30.7 L RDW 14.2 Plt Count 194 MPV 9.4 Immature Gran % 0.3 Neutrophils % 76.0 Lymphocytes % 15.6 Monocytes % 7.9 Eosinophils % 0.1 Basophils % 0.1 Nucleated RBC % 0.0 Absolute Neutrophils 5.95 Absolute Lymphocytes 1.22 Absolute Monocytes 0.62 Absolute Eosinophils 0.01 Absolute Basophils 0.01 VBG pH 7.28 L VBG pCO2 81 H* VBG pO2 20 VBG HCO3 38 H VBG Total CO2 36 H VBG O2 Saturation 30 VBG Base Excess 11 H Sodium 138 Potassium 4.6 Chloride 99 Carbon Dioxide 39.4 H Anion Gap -0.4 L BUN 12 Creatinine 0.7 Est GFR (CKD-EPI 2020) 89.02 Glucose 94 Calcium 9.6 Magnesium 1.9 Time Spent with Patient Time Spent with Patient: <25 minutes Time was spent: preparing to see the patient(eg.review tests), ordering medications,tests, procedures, referring, communicating with other health career technical counselor, indepentently interpreting results, counseling the patient and care coordination
[2022-07-24] MEDS: Salt Supplement (BUFFERED) TAB 1 TAB PO (19:36)
[2022-07-24] MEDS: diphenhydrAMINE 25 MG CAP 50 MG PO (21:29)
[2022-07-24] MEDS: Mirtazapine 15 MG TAB PO (21:29)
[2022-07-25] VITALS (12 sets, daily range): BP systolic 90–146; BP diastolic 54–67; PULSE 78–130; RESP 10–28; TEMP 37.3–39.3; O2SAT 88–110
[2022-07-25] MEDS: Normal Saline Flush 10 ML SYR IVP ×2 (02:58→06:13)
[2022-07-25] MEDS: Ondansetron 4 MG/2 ML VIAL IVP ×2 (02:58→06:12)
[2022-07-25] MEDS: Acetaminophen 500 MG TAB 1000 MG PO (06:29)
[2022-07-25 06:51] LABS: Abs Immature Grans 0.04 10^3/uL (0.0-0.06); Absolute Basophil Count 0.02 10^3/uL (0.0-0.2); Absolute Eosinophil Count 0.01 10^3/uL (0.0-0.7); Basophils % 0.2; Eosinophils % 0.1; HCT 44.3 % (36.0-46.0); HGB 13.7 g/dL (11.2-15.7); Immature Grans % 0.3; Lymphocytes % 5.9; MCH 28.5 pg (27.0-33.0); MCHC 30.9 % (32.0-36.0); MCV 92 fL (80-95); MPV 8.7 fL (8.0-11.0); Monocytes % 5.9; Neutrophils % 87.6; Platelet Count 222 10^3/uL (130-400); RBC 4.81 10^6/uL (3.93-5.22); RDW 14.2 % (11.7-14.6); RDW-SD 48.1 fL; WBC 11.91 10^3/uL (4.4-10.8)
[2022-07-25 06:55] LABS: Absolute Neutrophil Count 10.43 10^3/uL (1.2-6.7)
[2022-07-25] MEDS: Ipratropium/Albuterol 4 GM 120 PUFF INH IH ×4 (07:09→20:02)
[2022-07-25 07:12] LABS: Anion Gap 3.2 mmol/L (3-11); BUN 11 mg/dL (7-18); CO2 36.8 mmol/L (21.0-32.0); CREATININE 0.6 mg/dL (0.55-1.02); Calcium 9.7 mg/dL (8.5-10.1); Chloride 96 mmol/L (98-107); Estimated GFR 92.39 (mL/min/1.73m2); Glucose 125 mg/dL (74-106); Magnesium 1.7 mg/dL (1.8-2.4); Potassium 4.2 mmol/L (3.5-5.1); Sodium 136 mmol/L (136-145)
[2022-07-25 07:54] LABS: BE (Venous) 12 mmol/L (-2-3); HCO3 (Venous) 37 mmol/L (23-28); O2 Sat (Venous) 81 %; TCO2 (Venous) 34 mmol/L (24-29); pH (Venous) 7.37 (7.31-7.41); pO2 (Venous) 42 mmHg
[2022-07-25 07:58] LABS: pCO2 (Venous) 64 mmHg (41-51)
[2022-07-25] MEDS: Diclofenac 1% Gel 100 GM TUBE TP ×2 (09:00→14:40)
[2022-07-25] MEDS: Acetylcysteine 600 MG CAP PO (09:16)
[2022-07-25] MEDS: Cholecalciferol (Vitamin D3) 1,000 UNIT TAB 3000 UNITS PO (09:16)
[2022-07-25] MEDS: Roflumilast 500 MCG TAB PO (09:17)
[2022-07-25] MEDS: Sucralfate 1 GM TAB PO ×4 (09:17→21:03)
[2022-07-25] MEDS: Doxycycline Hyclate 100 MG CAP PO ×2 (09:17→19:30)
[2022-07-25] MEDS: Salt Supplement (BUFFERED) TAB 1 TAB PO ×2 (09:18→19:30)
[2022-07-25] MEDS: predniSONE 20 MG TAB 40 MG PO (09:18)
[2022-07-25] MEDS: Omeprazole 20 MG CAPCR 40 MG PO (09:18)
[2022-07-25] MEDS: Gabapentin 100 MG CAP PO ×3 (09:18→19:30)
[2022-07-25] MEDS: Enoxaparin 30 MG/0.3 ML SYR SC (09:19)
[2022-07-25] MEDS: Sertraline 100 MG TAB PO (09:20)
[2022-07-25] MEDS: CEFEPIME 2 GM in Normal Saline 100 ML IVPB ×2 (09:21→19:30)
[2022-07-25] MEDS: clonazePAM 1 MG TAB PO ×2 (10:24→21:03)
--- NOTE | 2022-07-25 14:34 | W.PM.PROGNOT ---
Date of Service Date of service: 07/25/22 Time of Service: 14:34 Assessment and Plan Assessment and plan (1) Acute exacerbation of chronic obstructive pulmonary disease: Status: Acute Assessment and plan: continue steroids, doxycycline day 5. New infliltrates on CXR - added Cefepime day 1 continue pulmonary toileting. Nebs SPO2 in am on 3 LPM NC > 88% - on BiPap in the lisa, 01/20 (2) LLL pneumonia: Status: Acute Assessment and plan: as above (3) Acute on chronic respiratory failure with hypoxia and hypercapnia: Status: Acute Assessment and plan: Continues to have increased difficulty breathing and has SPO2 in the high 80s. She is coughing up yellow sputum. Specimen pending. CXR - new infliltrates on CXR - added Cefepime day 1 BC Urine step and legionella pending MRSA pending (4) Chronic respiratory failure with hypercapnia: Status: Acute Assessment and plan: As above (5) TERESA (acute kidney injury): Status: Acute Assessment and plan: Trend BUN 11 / Creat 0.6 (6) Dependence on supplemental oxygen: Status: Acute Assessment and plan: n oxygen at home and she did have very supportive son bring in her own BiPap machine this lisa (7) Depression: Status: Chronic Assessment and plan: Continue home meds; Sertraline (8) Protein calorie malnutrition: Status: Acute Assessment and plan: Offer protein inbetween meals/shakes (9) DVT prophylaxis: Status: Acute Assessment and plan: lovenox 30 mg daily, d/t BMI - per NIH Specifically, [id number] patients may benefit from 30 mg subcutaneously daily for VTE prophylaxis (10) Discharge planning issues: Status: Acute Assessment and plan: anticipate home with resumption of HH services once medically stable - consider hospice discussed with Dr. Reyes Subjective Subjective Patient reports: no new complaints, bowel movement and fever (38 .2); denies nausea Interval history since last seen: Dev fever, states she is feeling slightly worse, very dyspneic with any exertion. Exam Const General: cooperative, no acute distress and ill appearing chronically Orientation: alert, awake and oriented x3 HENMT Head: normal to inspection Eyes General: appearance normal, both eyes and all related structures Pupils: PERRL EOM: EOM intact bilaterally Neck Neck: normal visual inspection Chest Chest: normal inspection of the chest and no tenderness Resp Effort & Inspection: normal respiratory effort, able to speak in complete sentences, cough and tachypneic (at times of increased exertion) Auscultation: crackles (LLL) and diminished lung sounds bilaterally throughout Cardio Rate: tachycardic Rhythm: regular rhythm GI Inspection: normal to inspection Palpation: soft Skin General skin exam: no rashes or lesions noted Neuro General: patient alert, patient awake and patient oriented x3 Cognition: normal cognition Speech: speech normal Motor: muscle tone normal throughout Sensory Exam: no sensory deficits noted Extrem General: normal to inspection, full ROM, capillary refill normal, no calf tenderness bilaterally and no edema Psych Appearance: grossly normal Mental Status: mental status grossly normal Speech and Movement: speech and movement normal Affect: normal affect Objective Last Vital Signs Temp 39.3 C H 07/25/22 06:31 Pulse 117 H 07/25/22 07:44 Resp 18 07/25/22 08:00 BP 146/67 H 07/25/22 06:31 Pulse Ox 89 L 07/25/22 09:08 Laboratory Results - last 24 hr 07/25/22 07/25/22 07/25/22 06:45 06:45 07:10 WBC 11.91 H RBC 4.81 Hgb 13.7 Hct 44.3 MCV 92 MCH 28.5 MCHC 30.9 L RDW 14.2 Plt Count 222 MPV 8.7 Immature Gran % 0.3 Neutrophils % 87.6 Lymphocytes % 5.9 Monocytes % 5.9 Eosinophils % 0.1 Basophils % 0.2 Nucleated RBC % 0.0 Absolute Neutrophils 10.43 H Absolute Lymphocytes 0.70 L Absolute Monocytes 0.70 Absolute Eosinophils 0.01 Absolute Basophils 0.02 VBG pH 7.37 VBG pCO2 64 H* VBG pO2 42 VBG HCO3 37 H VBG Total CO2 34 H VBG O2 Saturation 81 VBG Base Excess 12 H Sodium 136 Potassium 4.2 Chloride 96 L Carbon Dioxide 36.8 H Anion Gap 3.2 BUN 11 Creatinine 0.6 Est GFR (CKD-EPI 2020) 92.39 Glucose 125 H Calcium 9.7 Magnesium 1.7 L Time Spent with Patient Time Spent with Patient: <25 minutes Time was spent: preparing to see the patient(eg.review tests), ordering medications,tests, procedures, referring, communicating with other health complex care nurse practitioner, indepentently interpreting results, counseling the patient and care coordination
[2022-07-25] MEDS: diphenhydrAMINE 25 MG CAP 50 MG PO (21:03)
[2022-07-25] MEDS: Mirtazapine 15 MG TAB PO (21:03)
[2022-07-26] VITALS (10 sets, daily range): BP systolic 96–121; BP diastolic 55–66; PULSE 76–105; RESP 10–20; TEMP 36.6–37.1; O2SAT 4–95
--- NOTE | 2022-07-26 | DI.CT_ITS ---
Exam(s) CT CHEST PE CTA EXAM: CT CHEST PE CTA CLINICAL HISTORY: hypoxia, elevated d dimer. TECHNIQUE: Imaging Protocol: CT angiography of the chest was performed using pulmonary embolus hansel col. Multi planar reconstructions were performed. CONTRAST MATERIAL: Intravenous: Omnipaque 350 Contrast volume: 100 cc COMPARISON: CR,XR XR PORTABLE CHEST AP from 04/18/2022 FINDINGS: CHEST: PULMONARY ARTERIES: There are no intraluminal filling defects to suggest acute pulmonary emboli. LUNGS: There are significant infiltrates in the posterior and lateral basal segments of both lower lo bes, slightly larger on the right side. There is also nodular infiltrates higher up in the superior segment left lower lobe measuring 1.5 x 1.3 cm. Sub apical scarring on the right side right upper lo be noted. There is also a noncalcified small nodule in the posterior segment right upper lobe measur ing 4-5 millimeters.. There are no pleural effusions. MEDIASTINUM: There is no hilar nor mediastinal adenopathy. Visualized thyroid unremarkable. CARDIAC: Heart size upper normal. There is mild thickening of the anterior pericardium measuring 3 m m.Caliber of the thoracic aorta is within normal limits. No aortic dissection. Ventricular ratio XXX X 1:1 PARTIALLY VISUALIZED UPPERMOST ABDOMEN: No obvious findings OSSEOUS: There are nonacute appearing compression fractures of a few lower thoracic vertebral bodies. No acute fractures evident. No lytic osseous lesions evident. . IMPRESSION: 1. No evidence of acute pulmonary emboli. 2. There infiltrates in both lower lobes involving posterior and lateral basal segments bilaterally. No associated pleural effusions. 3. Additional 15 x 13 millimeter nodular infiltrate higher up in the left lower lobe. Requires close follow-up. 4. There is nonacute appearing height loss of lower thoracic vertebral bodies, age indeterminate. N ot appearing acute. RADIATION DOSE DELIVERED: 237.42mGy.cm Total DLP DATA REPOSITORY: All CT scans at this facility are submitted to the National Radiology Data Registry (NRDR) Dose Index Registry (DIR) with the [employer] ([employer]). RADIATION OPTIMIZATION: All CT scans at this facility use at least one of these dose optimization te chniques: automated exposure control; mA and/or kV adjustment per patient size (includes targeted exa ms where dose is matched to clinical indication); or iterative reconstruction.
[2022-07-26 06:31] LABS: Abs Immature Grans 0.03 10^3/uL (0.0-0.06); Absolute Basophil Count 0.02 10^3/uL (0.0-0.2); Absolute Lymphocyte Count 1.21 10^3/uL (1.2-3.4); Absolute Monocyte Count 0.83 10^3/uL (0.1-0.8); Absolute Neutrophil Count 8.57 10^3/uL (1.2-6.7); Basophils % 0.2; HCT 38.4 % (36.0-46.0); HGB 11.9 g/dL (11.2-15.7); Immature Grans % 0.3; Lymphocytes % 11.4; MCH 28.5 pg (27.0-33.0); MCV 92 fL (80-95); MPV 9.5 fL (8.0-11.0); Monocytes % 7.8; Neutrophils % 80.3; Platelet Count 212 10^3/uL (130-400); RBC 4.17 10^6/uL (3.93-5.22); RDW 14.1 % (11.7-14.6); WBC 10.66 10^3/uL (4.4-10.8)
[2022-07-26 06:44] LABS: Anion Gap 2.3 mmol/L (3-11); BUN 15 mg/dL (7-18); CO2 34.7 mmol/L (21.0-32.0); CREATININE 0.7 mg/dL (0.55-1.02); Calcium 10.1 mg/dL (8.5-10.1); Chloride 95 mmol/L (98-107); Estimated GFR 89.02 (mL/min/1.73m2); Glucose 96 mg/dL (74-106); Magnesium 1.9 mg/dL (1.8-2.4); Potassium 4.2 mmol/L (3.5-5.1); Sodium 132 mmol/L (136-145)
[2022-07-26 08:08] LABS: Procalcitonin 5.1 ng/mL
[2022-07-26] MEDS: Cholecalciferol (Vitamin D3) 1,000 UNIT TAB 3000 UNITS PO (08:08)
[2022-07-26] MEDS: predniSONE 20 MG TAB 40 MG PO (08:08)
[2022-07-26] MEDS: Doxycycline Hyclate 100 MG CAP PO ×2 (08:08→19:53)
[2022-07-26] MEDS: Gabapentin 100 MG CAP PO ×3 (08:09→19:53)
[2022-07-26] MEDS: clonazePAM 1 MG TAB PO ×3 (08:09→21:38)
[2022-07-26] MEDS: Omeprazole 20 MG CAPCR 40 MG PO (08:09)
[2022-07-26] MEDS: Acetylcysteine 600 MG CAP PO (08:09)
[2022-07-26] MEDS: Roflumilast 500 MCG TAB PO (08:09)
[2022-07-26] MEDS: Sucralfate 1 GM TAB PO ×4 (08:09→21:39)
[2022-07-26] MEDS: Sertraline 100 MG TAB PO (08:09)
[2022-07-26] MEDS: Salt Supplement (BUFFERED) TAB 1 TAB PO ×2 (08:09→19:53)
[2022-07-26] MEDS: Enoxaparin 30 MG/0.3 ML SYR SC (08:10)
[2022-07-26] MEDS: Diclofenac 1% Gel 100 GM TUBE TP ×2 (08:10→15:41)
[2022-07-26] MEDS: CEFEPIME 2 GM in Normal Saline 100 ML IVPB ×2 (08:12→19:53)
--- NOTE | 2022-07-26 08:41 | CMPROGNOTE_ITS ---
- If Service Date Differs Date of service: 07/26/22 Time of Service: 08:41 Care Management Progress Note S/O: Laney is lying in bed when CM met with her. She is awake, very pleasant and easy to engage in conversation. Per pt, she has been having quite a bit of nausea for several weeks, especially in the morning. She is still planning on discharging home with [facility] services (if indicated), when medically ready per provider. As an outpatient, Laney is followed by palliative and typically sees her PCP via telehealth because she is unable to easily leave her home. CM will follow. A: 77 year old female admitted to [facility] on 07/22/22 for COPD Exacerbation P: Anticipate, Laney will discharge home with [facility] services (if indicated) once medically stable per provider. She will transport via private vehicle with family and follow up with community providers and discharge plan of care as prescribed. CM will continue to follow.
[2022-07-26] MEDS: Ondansetron 4 MG/2 ML VIAL IVP (08:57)
[2022-07-26] MEDS: Ipratropium/Albuterol 4 GM 120 PUFF INH IH ×4 (09:06→19:34)
--- NOTE | 2022-07-26 12:41 | PT.INTREAT ---
PT Notes Visit Reasons: COPD Exacerbation Inpatient Physical Therapy Treatment Note [facility] Date: 07/26/22 PRECAUTIONS:standard SUBJECTIVE: Laney states that she is still feeling very weak. She has been up to the commode on her own and feels wobbly and tired. OBJECTIVE: BED MOBILITY/TRANSFERS Rolling L/R: n/t Supine-sit: independent Sit-supine: independent Sit-stand: supervision Stand-sit: supervision Bed-Chair: min A without AD Chair-bed: min A without AD GAIT TRAINING Assistive Device: FWW Weight bearing: full Assist: CGA Distance: 15' Deviation: slow, shuffling gait. Cues for equipment management and pacing. VITALS: Resting SaO2 at 92% on 4LPM via nasal cannula. Desaturates to 87% with ambulation, with HR up to 112. Rapidly resaturates to 91% with rest, HR down to 105. THEREX: Instructed in the followin. seated LAQ 10x each 2.seated march to fatigue (15 seconds) 3. ankle pumps 10x 4. sit to stand with CGA, 5x STAIRS:n/a ASSESSMENT: Decreased activity tolerance with short distance ambulation and transfers. PLAN: Requires continued PT intervention to maximize safety and mobility prior to returning home with assistance. Encouraged to resume her seated exercise program that she completes at home between PT sessions. Recommend HH PT upon discharge. TREATMENT CODE/TIME: 25 minutes (12:15 - 12:40); [id number], [id number] Shannan Ortiz, PT, DPT [facility]
--- NOTE | 2022-07-26 12:47 | W.PULMCON ---
General Date Of Service Date of service: 07/26/22 Time of Service: 14:47 Reason for Consult: COPD exacerbation Assessment and Plan Assessment and plan (1) Acute exacerbation of chronic obstructive pulmonary disease: Status: Acute (2) Acute on chronic respiratory failure with hypoxia and hypercapnia: Status: Acute (3) LLL pneumonia: Status: Acute (4) History of tobacco abuse: Status: Chronic Assessment and plan: This is a 77 yo admitted for acute respiratory failure in the setting of a COPD exacerbation and non compliance of her BiPAP. She has been provided with masks that work for her and I suspect with consistent use of the BiPAP her respiratory status will be much improved. She is on appropriate medications for her COPD. She has had multiple occurances of pneumonia, which have seem to always occur in the left lower lobe. I think she should have a chest CT completed. I have ordered for a D-dimer, which has returned as elevated (age adjusted) to will order a CTPE to assess her lungs. COPD Exacerbation - continue Trelegy - continue Combivent - continue NAC and roflumilast - continue prednisone 40mg for 5 days, 30mg for 3 days, 20mg for 3 days, 10mg for 3 days, 5mg for 3 days - continue Acapella and IS - patient is on only 30mg Lovenox, but with normal GFR, should be on 40mg Acute on chronic hypoxic and hypercapnic respiratory failure - continue nocturnal BiPAP now with proper mask - supplemental oxygen for sat >88% - recommend chest CT: d-dimer is high so have ordered a CTPE LLL pneumonia - agree with antibiotic choices - CTPE as above History of Present Illness Narrative: This is a 77 yo admitted to [facility] for a COPD exacerbation. She had a recent admission for the same reason in April, at which time I qualified her for nocturnal BiPAP, which was started. She was not compliant with the BiPAP recently due to a broken mask. She has had recurrent admissions now for COPD and is receiving maximal medical management for this. She is currently receiving Combivent QID, prednisone 40mg, NAC 600 daily, roflumilast, Trelegy 100, cefepime. She has had 2 CXR's, neither of which are concerning for a pneumonia although she does have an elevated procalcitonin. She has not had a chest CT, even historically, from what I can see. Her sputum culture is likely normal ailyn. On admission she was found to be in acute on chronic respiratory acidosis and is now using her home machine. She does feel as though she is improving slowly. She is coughing up significant amounts of green mucus. She feels as though she has a pneumonia. Review of Systems All systems reviewed & are unremarkable except as noted in HPI and below PFSH All Active Problems (Updated 07/25/22 @ 19:27 by Olga Swenson NP) LLL pneumonia (Acute ~03/30/18) Acute exacerbation of chronic obstructive pulmonary disease (Acute) Dependence on supplemental oxygen (Acute) Right shoulder pain (Acute) Abnormal weight loss (Acute) Chronic respiratory failure with hypercapnia (Acute) Palliative care patient (Acute) Depression (Chronic) Protein calorie malnutrition (Acute) Chronic pain (Chronic) TERESA (acute kidney injury) (Acute) Acute on chronic respiratory failure with hypoxia and hypercapnia (Acute) Hyponatremia (Chronic) Epigastric pain (Acute) Discharge planning issues (Acute) DVT prophylaxis (Acute) COPD with acute exacerbation (Acute) Odynophagia (Acute) GERD (gastroesophageal reflux disease) (Chronic) Chronic obstructive pulmonary disease (Chronic) Lumbosacral spondylosis without myelopathy (Acute) Fibromyalgia (Acute) Fall (Acute) Low back pain (Acute) Discharge planning issues (Acute) T12 compression fracture (Acute) Hemoptysis (Acute) History of cataract removal with insertion of prosthetic lens (Acute 06/05/15) Status post appendectomy (Acute) Status post laminectomy (Acute) Pain from implanted hardware (Chronic 10/30/18) S/P Hardware removal Chronic anxiety (Chronic 06/22/13) Chronic emphysema syndrome (Chronic) Chronic pain in right shoulder (Chronic 11/20/13) Moderate protein malnutrition (Chronic 11/20/13) Neck pain (Acute) Irritable bowel syndrome with diarrhea (Chronic) History of tobacco abuse (Chronic) Anxiety (Chronic) Medical History (Updated 07/25/22 @ 19:27 by Olga Swenson NP) Acute exacerbation of chronic obstructive pulmonary disease (COPD) C. difficile colitis Cervical neck pain with evidence of disc disease (06/22/13) Contusion of right knee, initial encounter DNI (do not intubate) DNR (do not resuscitate) Ongoing leg pain continue nSaid prn tramadol see surgeon next week consider topical analgesic on surrounding skin Pneumothorax, spontaneous, tension (12/25/10) POLST (Physician Orders for Life-Sustaining Treatment) Surgical History (Updated 06/29/22 @ 10:32 by Ralph Rahman MD) Appendectomy CHEST TUBE Extraction of cataract 06/05/15; LEFT EYE; DR. ARAUZ H/O section Hx of hysterectomy LAMINECTOMY CERVICAL SPINE Right femoral fracture (05/09/17) ORIF DOS: 05/10/17 Dr. Bob Family History Mother , at age 89, cardiac problems No problems noted. Father , at 81 Cancer Throat cancer Brother , at 71 Colon cancer Sister Diabetes DM2 Sister Diabetes DM2 Son No problems noted. Social History Smoking/Tobacco Use Status: Former Tobacco Use Quit Date: 09/16/13 Pack-years: 50 Smoking risk assessment performed?: Yes Alcohol Intake: former Year quit: 1979 Drug use: Never Substance use type: does not use Household members: none Housing: apartment Do you feel safe at home: Yes Do you feel safe in your relationship?: No Additional Social history: 16 years ago. Originally from [place], moved here to be near son and grand children. [place] House[place]. Enjoys contact with 4 grandchildren throughout the day (they are homeschooled and her home much of the time). Bedbound approximately 22 hours a day. On disability due to chronic back pain. 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 Approximate 75 pack year history of tobacco. No alcohol or illicit drug use endorsed. Visit Medication and Allergies Active Medications Generic Name Dose Route Start Last Admin Trade Name Freq PRN Reason Stop Dose Admin Acetaminophen 1,000 mg 07/23/22 07:20 07/25/22 06:29 Acetaminophen 500 Mg Tab PO 1,000 mg Q8H PRN PRN Administration pain Acetylcysteine 600 mg 07/23/22 08:30 07/26/22 08:09 Acetylcysteine 600 Mg Cap PO 600 mg DAILY IOANA Administration Albuterol/Ipratropium 1 puff 07/23/22 08:30 07/26/22 12:11 Ipratropium/Albuterol 4 Gm 120 Puff Inh IH 1 inh QID IOANA Administration Calcium Carbonate 1,500 - 2,000 mg 07/22/22 21:36 Calcium Carbonate *Tums* 500 Mg Chew PO TID PRN PRN Heartburn Cholecalciferol 3,000 units 07/23/22 08:30 07/26/22 08:08 Cholecalciferol (Vitamin D3) 1,000 Unit Tab PO 3,000 units DAILY IOANA Administration Clonazepam 1 mg 07/23/22 07:21 07/26/22 08:09 Clonazepam 1 Mg Tab PO 1 mg TID PRN PRN Administration anxiety Cyclosporine 0 ml 07/23/22 08:30 07/26/22 08:09 Cyclosporine 0.4 Ml Ophth Vial OP 0.4 ml BID IOANA Administration Device 1 each 07/22/22 22:00 Inhaler, Assist Device MC DIRECTED IOANA Diclofenac Sodium 2 gm 07/23/22 07:24 07/26/22 08:10 Diclofenac 1% Gel 100 Gm Tube TP 1 applic QID PRN PRN Administration pain Dimethicone/Zinc Oxide 0 gm 07/22/22 17:05 Shahana Protect Cream 142 Gm Tube TP PRN PRN Diphenhydramine HCl 50 mg 07/22/22 22:00 07/25/22 21:03 Diphenhydramine 25 Mg Cap PO 50 mg HS IOANA Administration Doxycycline Hyclate 100 mg 07/22/22 17:15 07/26/22 08:08 Doxycycline Hyclate 100 Mg Cap PO 100 mg BID IOANA Administration Enoxaparin Sodium 30 mg 07/23/22 08:30 07/26/22 08:10 Enoxaparin 30 Mg/0.3 Ml Syr SC 30 mg DAILY IOANA Administration Gabapentin 100 mg 07/23/22 08:30 07/26/22 08:09 Gabapentin 100 Mg Cap PO 100 mg TID IOANA Administration Cefepime HCl 2 gm/ Sodium 100 mls @ 200 mls/hr 07/25/22 08:00 07/26/22 10:21 Chloride IVPB Infused Q12H IOANA Infusion Mirtazapine 15 mg 07/22/22 22:00 07/25/22 21:03 Mirtazapine 15 Mg Tab PO 15 mg HS IOANA Administration Omeprazole 40 mg 07/23/22 07:30 07/26/22 08:09 Omeprazole 20 Mg Capcr PO 40 mg DAILY@0730 IOANA Administration Ondansetron HCl 4 mg 07/23/22 06:14 07/26/22 08:57 Ondansetron 4 Mg/2 Ml Vial IVP 4 mg Q8H PRN PRN Administration Pt's Own 1 each 07/29/22 08:30 Buprenorphine [ TD Butrans] 10 Mcg/Hour Q7D IOANA Weekly Patch Pt's Own Fluticasone 1 each 07/23/22 17:00 07/26/22 08:12 -Umeclidin-Vilanter IH 1 each [Trelegy Ellipta] DAILY IOANA Administration Inhaler Potassium Chloride/Sodium Chloride 1 tab 07/23/22 08:30 07/26/22 08:09 Salt Supplement (Buffered) Tab PO 1 tab BID IOANA Administration Prednisone 40 mg 07/23/22 08:30 07/26/22 08:08 Prednisone 20 Mg Tab PO 40 mg DAILY IOANA Administration Roflumilast 500 mcg 07/23/22 08:30 07/26/22 08:09 Roflumilast 500 Mcg Tab PO 500 mcg DAILY IOANA Administration Sertraline HCl 100 mg 07/23/22 08:30 07/26/22 08:09 Sertraline 100 Mg Tab PO 100 mg DAILY IOANA Administration Sodium Chloride 0 ml 07/23/22 06:26 07/25/22 06:13 Normal Saline Flush 10 Ml Syr IVP 10 ml PRN PRN Administration Sucralfate 1 gm 07/22/22 22:00 07/26/22 10:48 Sucralfate 1 Gm Tab PO 1 gm AC & HS IOANA Administration Vit C/Vit E/Zinc/Copper/Lutein 2 tab 07/23/22 08:30 07/26/22 08:08 Preservision Tablet PO 2 tab DAILY IOANA Administration Allergies No Known Allergies Allergy (Verified 02/13/22 07:59) Exam Narrative Exam Narrative: Gen: NAD, normal respiratory effort, well-nourished HENT: PERRL, nasal turbinates normal without erythema or inflammation, moist oral mucosa, Mallampati 2, No LAD or JVD Chest: No respiratory distress, normal appearance of chest, clear to auscultation bilaterally, scattered wheezes, normal inspiratory effort Heart: regular rate and rhythym, no murmurs, rubs or gallops Abdomen: Non-distended, soft, non tender Extremities: No clubbing, edema, cyanosis, rashes Neuro: AAOx3 , non focal Psych: cooperative, appropriate mental affect Results Last Vital Signs Temp 36.6 C 07/26/22 00:27 Pulse 86 07/26/22 00:27 Resp 18 07/26/22 08:00 BP 98/60 L 07/26/22 00:27 Pulse Ox 86 L 07/26/22 09:05 Labs 07/26/22 05:45 07/26/22 05:45 Labs: Laboratory Results - last 24 hr 07/26/22 07/26/22 07/26/22 05:45 05:45 05:45 WBC 10.66 RBC 4.17 Hgb 11.9 Hct 38.4 MCV 92 MCH 28.5 MCHC 31.0 L RDW 14.1 Plt Count 212 MPV 9.5 Immature Gran % 0.3 Neutrophils % 80.3 Lymphocytes % 11.4 Monocytes % 7.8 Eosinophils % 0.0 Basophils % 0.2 Nucleated RBC % 0.0 Absolute Neutrophils 8.57 H Absolute Lymphocytes 1.21 Absolute Monocytes 0.83 H Absolute Eosinophils 0.00 Absolute Basophils 0.02 Sodium 132 L Potassium 4.2 Chloride 95 L Carbon Dioxide 34.7 H Anion Gap 2.3 L BUN 15 Creatinine 0.7 Est GFR (CKD-EPI 2020) 89.02 Glucose 96 Calcium 10.1 Magnesium 1.9 Procalcitonin 5.1
[2022-07-26 14:07] LABS: COVID-19 PCR Negative (Negative); Influenza A PCR Negative (Negative); Influenza B PCR Negative (Negative); RSV PCR Negative (Negative)
[2022-07-26 14:08] LABS: Source Nasopharynx
--- NOTE | 2022-07-26 15:37 | PGE_ITS ---
Date of Service Date of service: 07/26/22 Time of Service: 15:37 Assessment and Plan Assessment and plan (1) Acute exacerbation of chronic obstructive pulmonary disease: Status: Acute Assessment and plan: continue steroids, doxycycline day 5. New infliltrates on CXR - added Cefepime day 1 continue pulmonary toileting. Nebs SPO2 in am on 3 LPM NC > 88% - on BiPap in the lisa, 01/20 (2) LLL pneumonia: Status: Acute Assessment and plan: as above (3) Acute on chronic respiratory failure with hypoxia and hypercapnia: Status: Acute Assessment and plan: Continues to have increased difficulty breathing and has SPO2 in the high 80s. She is coughing up yellow sputum. Specimen pending. CXR - new infliltrates on CXR - added Cefepime day 1 BC Urine step and legionella pending MRSA pending (4) Chronic respiratory failure with hypercapnia: Status: Acute Assessment and plan: As above (5) TERESA (acute kidney injury): Status: Acute Assessment and plan: Trend BUN 11 / Creat 0.6 (6) Dependence on supplemental oxygen: Status: Acute Assessment and plan: n oxygen at home and she did have very supportive son bring in her own BiPap machine this lisa (7) Depression: Status: Chronic Assessment and plan: Continue home meds; Sertraline (8) Protein calorie malnutrition: Status: Acute Assessment and plan: Offer protein inbetween meals/shakes (9) DVT prophylaxis: Status: Acute Assessment and plan: lovenox 30 mg daily, d/t BMI - per NIH Specifically, [id number] patients may benefit from 30 mg subcutaneously daily for VTE prophylaxis (10) Discharge planning issues: Status: Acute Assessment and plan: anticipate home with resumption of HH services once medically stable - consider hospice discussed with Dr. Reyes Subjective Subjective Patient reports: no new complaints, tolerating a regular diet, bowel movement, nausea and afebrile; denies diarrhea or vomiting Interval history since last seen: Continues to feel weak and feels she is not yet able to go home. Exam Const General: cooperative, no acute distress and ill appearing chronically Orientation: alert, awake and oriented x3 HENMT Head: normal to inspection Eyes General: appearance normal, both eyes and all related structures Pupils: PERRL EOM: EOM intact bilaterally Neck Neck: normal visual inspection Chest Chest: normal inspection of the chest and no tenderness Resp Effort & Inspection: normal respiratory effort, able to speak in complete sentences, cough and tachypneic (at times of increased exertion) Auscultation: crackles (LLL) and diminished lung sounds bilaterally throughout Cardio Rate: tachycardic Rhythm: regular rhythm GI Inspection: normal to inspection Palpation: soft Skin General skin exam: no rashes or lesions noted Neuro General: patient alert, patient awake and patient oriented x3 Cognition: normal cognition Speech: speech normal Motor: muscle tone normal throughout Sensory Exam: no sensory deficits noted Extrem General: normal to inspection, full ROM, capillary refill normal, no calf tenderness bilaterally and no edema Psych Appearance: grossly normal Mental Status: mental status grossly normal Speech and Movement: speech and movement normal Affect: normal affect Objective Last Vital Signs Temp 37.1 C 07/26/22 15:10 Pulse 90 07/26/22 15:10 Resp 16 07/26/22 15:10 BP 96/58 L 07/26/22 15:10 Pulse Ox 90 L 07/26/22 15:10 Laboratory Results - last 24 hr 07/26/22 07/26/22 07/26/22 05:45 05:45 05:45 WBC 10.66 RBC 4.17 Hgb 11.9 Hct 38.4 MCV 92 MCH 28.5 MCHC 31.0 L RDW 14.1 Plt Count 212 MPV 9.5 Immature Gran % 0.3 Neutrophils % 80.3 Lymphocytes % 11.4 Monocytes % 7.8 Eosinophils % 0.0 Basophils % 0.2 Nucleated RBC % 0.0 Absolute Neutrophils 8.57 H Absolute Lymphocytes 1.21 Absolute Monocytes 0.83 H Absolute Eosinophils 0.00 Absolute Basophils 0.02 Sodium 132 L Potassium 4.2 Chloride 95 L Carbon Dioxide 34.7 H Anion Gap 2.3 L BUN 15 Creatinine 0.7 Est GFR (CKD-EPI 2020) 89.02 Glucose 96 Calcium 10.1 Magnesium 1.9 Procalcitonin 5.1 COVID-19 Source SARS-CoV-2 (PCR) Influenza Type A (PCR) Influenza Type B (PCR) RSV (PCR) 07/26/22 13:10 WBC RBC Hgb Hct MCV MCH MCHC RDW Plt Count MPV Immature Gran % Neutrophils % Lymphocytes % Monocytes % Eosinophils % Basophils % Nucleated RBC % Absolute Neutrophils Absolute Lymphocytes Absolute Monocytes Absolute Eosinophils Absolute Basophils Sodium Potassium Chloride Carbon Dioxide Anion Gap BUN Creatinine Est GFR (CKD-EPI 2020) Glucose Calcium Magnesium Procalcitonin COVID-19 Source Nasopharynx SARS-CoV-2 (PCR) Negative Influenza Type A (PCR) Negative Influenza Type B (PCR) Negative RSV (PCR) Negative Time Spent with Patient Time Spent with Patient: 25-34 minutes Time was spent: preparing to see the patient(eg.review tests), ordering medications,tests, procedures, referring, communicating with other health career services assistant, indepentently interpreting results, counseling the patient and care coordination
[2022-07-26 17:13] LABS: D-Dimer 888 ng/mlFEU (<500)
--- NOTE | 2022-07-26 17:26 | PHA.REVIEW2 ---
Pharmacy Admission Review - Admission Clinical Review (Last Updated 06/23/22 @ 19:54 by Liberty Low MD) LLL pneumonia (Acute ~03/30/18) Acute exacerbation of chronic obstructive pulmonary disease (Acute) Dependence on supplemental oxygen (Acute) Chronic respiratory failure with hypercapnia (Acute) Protein calorie malnutrition (Acute) TERESA (acute kidney injury) (Acute) Acute on chronic respiratory failure with hypoxia and hypercapnia (Acute) Discharge planning issues (Acute) DVT prophylaxis (Acute) No Known Allergies Allergy (Verified 02/13/22 07:59) Resuscitation Status DNR/DNI Height 5 ft 6 in Weight 47.8 kg - Renal Dosing Renal Dosing: BUN 15 mg/dL (7-18) 07/26/22 05:45 Creatinine 0.7 mg/dL (0.55-1.02) 07/26/22 05:45 Medications needing adjustments: Intervened (eCrCl 35.5 ml/min -- lovenox dose should be 40mg) - Anticoagulation Anticoagulation: Hgb 11.9 g/dL (11.2-15.7) 07/26/22 05:45 Hct 38.4 % (36.0-46.0) 07/26/22 05:45 Plt Count 212 10^3/uL (130-400) 07/26/22 05:45 Creatinine 0.7 mg/dL (0.55-1.02) 07/26/22 05:45 DVT Prophylaxis: Reviewed Medications: Enoxaparin - Opiate Usage Evaluate Pain Scale/Pains Meds: Reviewed (uses a butrans patch at home) Scheduled Bowel Reg ordered if on Opiates?: No - Relevant Labs Sodium 132 mmol/L (136-145) L 07/26/22 05:45 Potassium 4.2 mmol/L (3.5-5.1) 07/26/22 05:45 Chloride 95 mmol/L (98-107) L 07/26/22 05:45 Magnesium 1.9 mg/dL (1.8-2.4) 07/26/22 05:45 Electrolytes, C-Reactive P, ESR: Reviewed (potassium elevated this AM at 5.7 -- one dose of lokelma given which brought level down to 5.0) - DM Control DM Control: Glucose 96 mg/dL (74-106) 07/26/22 05:45 DM Control: N/A - Cardiac Review Cardiac Review: Troponin I < 50 ng/L (<or=60) 07/22/22 12:32 BP, HR, EF%: Reviewed - Qtc Review QTc: Reviewed If Elevated, List meds needing intervention: QTc 452 on admission - IV to PO Switch IV Medications: Reviewed - Home Meds Home Med List reviewed: Reviewed Relevent Home Meds Not ordered & why?: all ordered; 50mg of benadryl was ordered as schedule although it hadn't been confirmed -- notified MD, changed order to prn - Current meds Current Medication Order Review: Reviewed (CEFEPIME 2GM Q12H started on 07/25, PO doxy was started on 07/22; patient is to have a chest CT done, abx to continue)
[2022-07-26] MEDS: Omnipaque 350 MG/ML 100 ML BTL 60 ML IJ (18:25)
--- NOTE | 2022-07-26 19:24 | DI.VRAD_ITS ---
PROCEDURE INFORMATION: Exam: CTA Chest With Contrast Exam date and time: 07/26/2022 6:25 PM Age: 77 years old Clinical indication: Patient HX: Hypoxia, elevated d dimer TECHNIQUE: Imaging protocol: Computed tomographic angiography of the chest with contrast. 3D rendering (Not supervised by radiologist): MIP and/or 3D reconstructed images were created by the technologist. Radiation optimization: All CT scans at this facility use at least one of these dose optimization techniques: automated exposure control; mA and/or kV adjustment per patient size (includes targeted exams where dose is matched to clinical indication); or iterative reconstruction. Contrast material: OMNIPAQUE 350; Contrast volume: 60 ml; Contrast route: INTRAVENOUS (IV); COMPARISON: CR XR PORTABLE CHEST AP 07/24/2022 11:51 AM FINDINGS: Pulmonary arteries: Normal. No pulmonary emboli. Aorta: Atherosclerotic calcification noted in the aorta. No evidence of aortic aneurysm or dissection. Lungs: Patchy bilateral lower lobe consolidation is compatible with active pneumonitis. Moderate emphysema noted in the lung apices. There is a 4.6 mm noncalcified right upper lobe pulmonary nodule on axial image 23. Pleural spaces: Unremarkable. No pneumothorax. No pleural effusion. Heart: The heart appears moderately enlarged. There is a small pericardial effusion. Lymph nodes: Unremarkable. No enlarged lymph nodes. Bones/joints: Chronic appearing [id number] compression of several lower thoracic and upper lumbar vertebrae noted. Soft tissues: Unremarkable. IMPRESSION: 1. No evidence of pulmonary embolus 2. Bilateral lower lobe pneumonia 3. 4.6 mm right upper lobe pulmonary nodule. For patients at low risk (minimal or absent history of smoking and of other known risk factors), no routine follow-up is indicated. For patients at high risk (history of smoking or of other known risk factors), consider optional CT Chest at 12 months. (Reference: Jyothi) References: Moseshotyler H, et al. Guidelines for Management of Incidental Pulmonary Nodules Detected on CT Images: From the Fleischner Society 2017. Radiology. 2017;284(1):228-243. Dictated and Authenticated by: Cecilio Leger MD. Ordering:ANGELICA Sinha MD
[2022-07-26] MEDS: Acetaminophen 500 MG TAB 1000 MG PO (20:13)
[2022-07-26] MEDS: diphenhydrAMINE 25 MG CAP 50 MG PO (21:38)
[2022-07-26] MEDS: Mirtazapine 15 MG TAB PO (21:39)
[2022-07-26 23:17] LABS: Legionella Ag Detection Urine Negative (Negative)
[2022-07-27] VITALS (7 sets, daily range): BP systolic 94–108; BP diastolic 52–64; PULSE 72–87; RESP 10–20; TEMP 36.1–37.1; O2SAT 92–96
[2022-07-27 06:17] LABS: Abs Immature Grans 0.06 10^3/uL (0.0-0.06); Absolute Basophil Count 0.01 10^3/uL (0.0-0.2); Absolute Eosinophil Count 0.01 10^3/uL (0.0-0.7); Absolute Lymphocyte Count 1.56 10^3/uL (1.2-3.4); Absolute Monocyte Count 0.78 10^3/uL (0.1-0.8); Absolute Neutrophil Count 6.96 10^3/uL (1.2-6.7); Basophils % 0.1; Eosinophils % 0.1; HCT 34.1 % (36.0-46.0); Immature Grans % 0.6; Lymphocytes % 16.6; MCH 29.1 pg (27.0-33.0); MCHC 32.3 % (32.0-36.0); MCV 90 fL (80-95); MPV 9.4 fL (8.0-11.0); Monocytes % 8.3; Neutrophils % 74.3; Platelet Count 236 10^3/uL (130-400); RBC 3.78 10^6/uL (3.93-5.22); RDW 13.8 % (11.7-14.6); RDW-SD 45.9 fL; WBC 9.38 10^3/uL (4.4-10.8)
[2022-07-27 06:31] LABS: Anion Gap 1.9 mmol/L (3-11); BUN 13 mg/dL (7-18); CO2 36.1 mmol/L (21.0-32.0); CREATININE 0.7 mg/dL (0.55-1.02); Calcium 9.7 mg/dL (8.5-10.1); Chloride 97 mmol/L (98-107); Estimated GFR 89.02 (mL/min/1.73m2); Glucose 103 mg/dL (74-106); Magnesium 1.8 mg/dL (1.8-2.4); Potassium 4.1 mmol/L (3.5-5.1); Sodium 135 mmol/L (136-145)
[2022-07-27] MEDS: Benzocaine/Menthol LOZG 15/BOX 1 EACH SUC (07:18)
[2022-07-27] MEDS: Salt Supplement (BUFFERED) TAB 1 TAB PO ×2 (07:19→20:13)
[2022-07-27] MEDS: Sertraline 100 MG TAB PO (07:20)
[2022-07-27] MEDS: Gabapentin 100 MG CAP PO ×3 (07:20→20:13)
[2022-07-27] MEDS: Omeprazole 20 MG CAPCR 40 MG PO (07:20)
[2022-07-27] MEDS: clonazePAM 1 MG TAB PO ×3 (07:20→21:47)
[2022-07-27] MEDS: Cholecalciferol (Vitamin D3) 1,000 UNIT TAB 3000 UNITS PO (07:20)
[2022-07-27] MEDS: predniSONE 20 MG TAB 40 MG PO (07:20)
[2022-07-27] MEDS: Sucralfate 1 GM TAB PO ×4 (07:20→21:47)
[2022-07-27] MEDS: Acetylcysteine 600 MG CAP PO (07:21)
[2022-07-27] MEDS: Doxycycline Hyclate 100 MG CAP PO ×2 (07:21→20:13)
[2022-07-27] MEDS: Roflumilast 500 MCG TAB PO (07:21)
[2022-07-27] MEDS: Diclofenac 1% Gel 100 GM TUBE TP ×2 (07:21→23:38)
[2022-07-27] MEDS: CEFEPIME 2 GM in Normal Saline 100 ML IVPB ×2 (07:27→20:14)
[2022-07-27] MEDS: Enoxaparin 40 MG/0.4 ML SYR SC (07:33)
[2022-07-27] MEDS: Ipratropium/Albuterol 4 GM 120 PUFF INH IH ×4 (07:35→20:04)
--- NOTE | 2022-07-27 07:44 | W.PULMPROG ---
Assessment and Plan Assessment and plan (1) Acute exacerbation of chronic obstructive pulmonary disease: Status: Acute (2) Bilateral pneumonia: Status: Acute (3) Acute on chronic respiratory failure with hypoxia and hypercapnia: Status: Acute (4) History of tobacco abuse: Status: Chronic Assessment and plan: This is a 77 yo admitted for acute respiratory failure in the setting of a COPD exacerbation and non compliance of her BiPAP. She has been provided with masks that work for her and she was able to wear her BiPAP overnight for 6 hours. She is on appropriate medications for her COPD. She has had multiple occurrences of pneumonia, which have seem to always occur in the left lower lobe. He chest CT again shows LLL pneumonia, but also RLL pneumonia. I will plan on repeating the chest CT as an outpatient to ensure resolution of infiltrates. COPD Exacerbation - continue Trelegy - continue Combivent - continue NAC and roflumilast - continue prednisone 40mg for 5 days, 30mg for 3 days, 20mg for 3 days, 10mg for 3 days, 5mg for 3 days - continue Acapella and IS Acute on chronic hypoxic and hypercapnic respiratory failure - continue nocturnal BiPAP now with proper mask - supplemental oxygen for sat >88% - recommend chest CT: d-dimer is high so have ordered a CTPE Bilateral lower lobe pneumonia - agree with antibiotic choices - can be discharged on Augmentin for a total of 10 antibiotic days - continue Acapella and IS - will repeat chest CT as an outpatient RUL pulmonary nodule - will repeat chest CT as above General Date Of Service Date of service: 07/27/22 Time of Service: 07:45 Reason for Consult: COPD exacerbation Subjective Note Note: Laney is doing well today. We discussed her chest CT findings of bilateral lower lobe pneumonia and a 5mm RUL nodule. She is still coughing and producing mucus. She still has chest tightness. Exam Narrative Exam Narrative: Gen:?NAD, normal respiratory effort, well-nourished HENT:?PERRL, nasal turbinates normal without erythema or inflammation, moist oral? mucosa, Mallampati 2, No LAD or JVD Chest:?No respiratory distress, normal appearance of chest, clear to auscultation bilaterally, normal inspiratory effort Heart:?regular rate and rhythym, no murmurs, rubs or gallops Abdomen:?Non-distended, soft, non tender Extremities:?No clubbing, edema, cyanosis, rashes Neuro:?AAOx3 , non focal Psych:?cooperative, appropriate mental affect Objective Last Vital Signs Temp 36.6 C 07/26/22 23:11 Pulse 76 07/26/22 23:11 Resp 20 07/26/22 23:11 BP 102/66 07/26/22 23:11 Pulse Ox 95 07/26/22 23:11 Laboratory Results - last 24 hr 07/26/22 07/26/22 07/26/22 05:45 13:10 16:08 WBC RBC Hgb Hct MCV MCH MCHC RDW Plt Count MPV Immature Gran % Neutrophils % Lymphocytes % Monocytes % Eosinophils % Basophils % Nucleated RBC % Absolute Neutrophils Absolute Lymphocytes Absolute Monocytes Absolute Eosinophils Absolute Basophils D-Dimer 888 H Sodium Potassium Chloride Carbon Dioxide Anion Gap BUN Creatinine Est GFR (CKD-EPI 2020) Glucose Calcium Magnesium Procalcitonin 5.1 COVID-19 Source Nasopharynx SARS-CoV-2 (PCR) Negative Influenza Type A (PCR) Negative Influenza Type B (PCR) Negative RSV (PCR) Negative 07/27/22 07/27/22 05:59 05:59 WBC 9.38 RBC 3.78 L Hgb 11.0 L Hct 34.1 L MCV 90 MCH 29.1 MCHC 32.3 RDW 13.8 Plt Count 236 MPV 9.4 Immature Gran % 0.6 Neutrophils % 74.3 Lymphocytes % 16.6 Monocytes % 8.3 Eosinophils % 0.1 Basophils % 0.1 Nucleated RBC % 0.0 Absolute Neutrophils 6.96 H Absolute Lymphocytes 1.56 Absolute Monocytes 0.78 Absolute Eosinophils 0.01 Absolute Basophils 0.01 D-Dimer Sodium 135 L Potassium 4.1 Chloride 97 L Carbon Dioxide 36.1 H Anion Gap 1.9 L BUN 13 Creatinine 0.7 Est GFR (CKD-EPI 2020) 89.02 Glucose 103 Calcium 9.7 Magnesium 1.8 Procalcitonin COVID-19 Source SARS-CoV-2 (PCR) Influenza Type A (PCR) Influenza Type B (PCR) RSV (PCR) Results Medications Medications: Active Medications Generic Name Dose Route Start Last Admin Trade Name Freq PRN Reason Stop Dose Admin Acetaminophen 1,000 mg 07/23/22 07:20 07/26/22 20:13 Acetaminophen 500 Mg Tab PO 1,000 mg Q8H PRN PRN Administration pain Acetylcysteine 600 mg 07/23/22 08:30 07/27/22 07:21 Acetylcysteine 600 Mg Cap PO 600 mg DAILY IOANA Administration Albuterol/Ipratropium 1 puff 07/23/22 08:30 07/27/22 07:35 Ipratropium/Albuterol 4 Gm 120 Puff Inh IH 1 inh QID IOANA Administration Benzocaine/Menthol 1 each 07/26/22 22:23 07/27/22 07:18 Benzocaine/Menthol Lozg 15/Box SUC 1 hemant Q6H PRN PRN Administration Calcium Carbonate 1,500 - 2,000 mg 07/22/22 21:36 Calcium Carbonate *Tums* 500 Mg Chew PO TID PRN PRN Heartburn Cholecalciferol 3,000 units 07/23/22 08:30 07/27/22 07:20 Cholecalciferol (Vitamin D3) 1,000 Unit Tab PO 3,000 units DAILY IOANA Administration Clonazepam 1 mg 07/23/22 07:21 07/27/22 07:20 Clonazepam 1 Mg Tab PO 1 mg TID PRN PRN Administration anxiety Cyclosporine 0 ml 07/23/22 08:30 07/27/22 07:20 Cyclosporine 0.4 Ml Ophth Vial OP 0.4 ml BID [facility] Administration Device 1 each 07/22/22 22:00 Inhaler, Assist Device MC DIRECTED [facility] Diclofenac Sodium 2 gm 07/23/22 07:24 07/27/22 07:21 Diclofenac 1% Gel 100 Gm Tube TP 1 applic QID PRN PRN Administration pain Dimethicone/Zinc Oxide 0 gm 07/22/22 17:05 Shahana Protect Cream 142 Gm Tube TP PRN PRN Diphenhydramine HCl 50 mg 07/26/22 17:37 07/26/22 21:38 Diphenhydramine 25 Mg Cap PO 50 mg HS PRN PRN Administration Doxycycline Hyclate 100 mg 07/22/22 17:15 07/27/22 07:21 Doxycycline Hyclate 100 Mg Cap PO 100 mg BID IOANA Administration Enoxaparin Sodium 40 mg 07/27/22 08:30 07/27/22 07:33 Enoxaparin 40 Mg/0.4 Ml Syr SC 40 mg DAILY [facility] Administration Gabapentin 100 mg 07/23/22 08:30 07/27/22 07:20 Gabapentin 100 Mg Cap PO 100 mg TID IOANA Administration Cefepime HCl 2 gm/ Sodium 100 mls @ 200 mls/hr 07/25/22 08:00 07/27/22 07:27 Chloride IVPB 200 mls/hr Q12H IOANA Administration Iohexol 60 ml 07/26/22 18:30 07/26/22 18:25 Omnipaque 350 Mg/Ml 100 Ml Btl IJ 08/25/22 23:59 60 ml DIRECTED IOANA Administration Mirtazapine 15 mg 07/22/22 22:00 07/26/22 21:39 Mirtazapine 15 Mg Tab PO 15 mg HS IOANA Administration Omeprazole 40 mg 07/23/22 07:30 07/27/22 07:20 Omeprazole 20 Mg Capcr PO 40 mg DAILY@0730 IOANA Administration Ondansetron HCl 4 mg 07/23/22 06:14 07/26/22 08:57 Ondansetron 4 Mg/2 Ml Vial IVP 4 mg Q8H PRN PRN Administration Pt's Own 1 each 07/29/22 08:30 Buprenorphine [ TD Butrans] 10 Mcg/Hour Q7D IOANA Weekly Patch Pt's Own Fluticasone 1 each 07/23/22 17:00 07/27/22 07:19 -Umeclidin-Vilanter IH 1 each [Trelegy Ellipta] DAILY IOANA Administration Inhaler Potassium Chloride/Sodium Chloride 1 tab 07/23/22 08:30 07/27/22 07:19 Salt Supplement (Buffered) Tab PO 1 tab BID IOANA Administration Prednisone 40 mg 07/23/22 08:30 07/27/22 07:20 Prednisone 20 Mg Tab PO 07/28/22 08:59 40 mg DAILY IOANA Administration Prednisone 20 mg/ Prednisone 30 mg 07/29/22 08:30 10 mg PO 07/31/22 08:31 DAILY IOANA Roflumilast 500 mcg 07/23/22 08:30 07/27/22 07:21 Roflumilast 500 Mcg Tab PO 500 mcg DAILY IOANA Administration Sertraline HCl 100 mg 07/23/22 08:30 07/27/22 07:20 Sertraline 100 Mg Tab PO 100 mg DAILY IOANA Administration Sodium Chloride 0 ml 07/23/22 06:26 07/25/22 06:13 Normal Saline Flush 10 Ml Syr IVP 10 ml PRN PRN Administration Sodium Chloride 50 ml 07/26/22 18:30 Normal Saline - Diluent 50 Ml Vial IV .FOR DI USE IOANA Sucralfate 1 gm 07/22/22 22:00 07/27/22 07:20 Sucralfate 1 Gm Tab PO 1 gm AC & HS IOANA Administration Vit C/Vit E/Zinc/Copper/Lutein 2 tab 07/23/22 08:30 07/27/22 07:19 Preservision Tablet PO 2 tab DAILY IOANA Administration Allergies No Known Allergies Allergy (Verified 02/13/22 07:59) Labs 07/27/22 05:59 07/27/22 05:59 Labs: 07/25/22 18:16 Sputum Sputum Culture - Preliminary Gram Positive & Negative [place] 07/25/22 18:16 Sputum Gram Stain - Final 07/25/22 07:10 Blood Blood Culture - Preliminary NO GROWTH 24 HOURS 07/25/22 06:45 Blood Blood Culture - Preliminary NO GROWTH 24 HOURS Laboratory Tests Range/Units 07/22/22 07/22/22 07/22/22 12:32 12:32 12:32 WBC (4.4-10.8) 10^3/uL 9.59 RBC (3.93-5.22) 10^6/uL 4.51 Hgb (11.2-15.7) g/dL 12.9 Hct (36.0-46.0) % 41.1 MCV (80-95) fL 91 MCH (27.0-33.0) pg 28.6 MCHC (32.0-36.0) % 31.4 L RDW (11.7-14.6) % 14.1 Plt Count (130-400) 10^3/uL 192 MPV (8.0-11.0) fL 8.9 Immature Gran % 0.3 Neutrophils % 78.1 Lymphocytes % 14.0 Monocytes % 6.0 Eosinophils % 1.3 Basophils % 0.3 Nucleated RBC % (0.0-0.3) % 0.0 Absolute Neutrophils (1.2-6.7) 10^3/uL 7.49 H Absolute Lymphocytes (1.2-3.4) 10^3/uL 1.34 Absolute Monocytes (0.1-0.8) 10^3/uL 0.58 Absolute Eosinophils (0.0-0.7) 10^3/uL 0.12 Absolute Basophils (0.0-0.2) 10^3/uL 0.03 D-Dimer (<500) ng/mlFEU VBG pH (7.31-7.41) VBG pCO2 (41-51) mmHg VBG pO2 mmHg VBG HCO3 (23-28) mmol/L VBG Total CO2 (24-29) mmol/L VBG O2 Saturation % VBG Base Excess (-2-3) mmol/L Sodium (136-145) mmol/L 139 Potassium (3.5-5.1) mmol/L 3.9 Chloride (98-107) mmol/L 100 Carbon Dioxide (21.0-32.0) mmol/L 38.0 H Anion Gap (3-11) mmol/L 1.0 L BUN (7-18) mg/dL 8 Creatinine (0.55-1.02) mg/dL 0.7 Est GFR (CKD-EPI 2020) (mL/min/1.73m2) 89.02 Glucose (74-106) mg/dL 116 H Calcium (8.5-10.1) mg/dL 9.8 Magnesium (1.8-2.4) mg/dL 1.7 L Total Bilirubin (0.2-1.0) mg/dL 0.2 AST (15-37) U/L 9 L ALT (14-59) U/L 11 L Alkaline Phosphatase (46-116) U/L 83 Troponin I (<or=60) ng/L < 50 Total Protein (6.4-8.2) g/dL 7.1 Albumin (3.4-5.0) g/dL 3.7 Procalcitonin ng/mL COVID-19 Source Nasopharynx SARS-CoV-2 (PCR) (Negative) Negative Influenza Type A (PCR) (Negative) Negative Influenza Type B (PCR) (Negative) Negative RSV (PCR) (Negative) Negative Range/Units 07/22/22 07/24/22 07/24/22 12:32 06:15 06:15 WBC (4.4-10.8) 10^3/uL 7.83 RBC (3.93-5.22) 10^6/uL 4.17 Hgb (11.2-15.7) g/dL 11.9 Hct (36.0-46.0) % 38.8 MCV (80-95) fL 93 MCH (27.0-33.0) pg 28.5 MCHC (32.0-36.0) % 30.7 L RDW (11.7-14.6) % 14.2 Plt Count (130-400) 10^3/uL 194 MPV (8.0-11.0) fL 9.4 Immature Gran % 0.3 Neutrophils % 76.0 Lymphocytes % 15.6 Monocytes % 7.9 Eosinophils % 0.1 Basophils % 0.1 Nucleated RBC % (0.0-0.3) % 0.0 Absolute Neutrophils (1.2-6.7) 10^3/uL 5.95 Absolute Lymphocytes (1.2-3.4) 10^3/uL 1.22 Absolute Monocytes (0.1-0.8) 10^3/uL 0.62 Absolute Eosinophils (0.0-0.7) 10^3/uL 0.01 Absolute Basophils (0.0-0.2) 10^3/uL 0.01 D-Dimer (<500) ng/mlFEU VBG pH (7.31-7.41) VBG pCO2 (41-51) mmHg VBG pO2 mmHg VBG HCO3 (23-28) mmol/L VBG Total CO2 (24-29) mmol/L VBG O2 Saturation % VBG Base Excess (-2-3) mmol/L Sodium (136-145) mmol/L 138 Potassium (3.5-5.1) mmol/L 4.6 Chloride (98-107) mmol/L 99 Carbon Dioxide (21.0-32.0) mmol/L 39.4 H Anion Gap (3-11) mmol/L -0.4 L BUN (7-18) mg/dL 12 Creatinine (0.55-1.02) mg/dL 0.7 Est GFR (CKD-EPI 2020) (mL/min/1.73m2) 89.02 Glucose (74-106) mg/dL 94 Calcium (8.5-10.1) mg/dL 9.6 Magnesium (1.8-2.4) mg/dL 1.9 Total Bilirubin (0.2-1.0) mg/dL AST (15-37) U/L ALT (14-59) U/L Alkaline Phosphatase (46-116) U/L Troponin I (<or=60) ng/L Total Protein (6.4-8.2) g/dL Albumin (3.4-5.0) g/dL Procalcitonin ng/mL < 0.1 COVID-19 Source SARS-CoV-2 (PCR) (Negative) Influenza Type A (PCR) (Negative) Influenza Type B (PCR) (Negative) RSV (PCR) (Negative) Range/Units 07/24/22 07/25/22 07/25/22 09:55 06:45 06:45 WBC (4.4-10.8) 10^3/uL 11.91 H RBC (3.93-5.22) 10^6/uL 4.81 Hgb (11.2-15.7) g/dL 13.7 Hct (36.0-46.0) % 44.3 MCV (80-95) fL 92 MCH (27.0-33.0) pg 28.5 MCHC (32.0-36.0) % 30.9 L RDW (11.7-14.6) % 14.2 Plt Count (130-400) 10^3/uL 222 MPV (8.0-11.0) fL 8.7 Immature Gran % 0.3 Neutrophils % 87.6 Lymphocytes % 5.9 Monocytes % 5.9 Eosinophils % 0.1 Basophils % 0.2 Nucleated RBC % (0.0-0.3) % 0.0 Absolute Neutrophils (1.2-6.7) 10^3/uL 10.43 H Absolute Lymphocytes (1.2-3.4) 10^3/uL 0.70 L Absolute Monocytes (0.1-0.8) 10^3/uL 0.70 Absolute Eosinophils (0.0-0.7) 10^3/uL 0.01 Absolute Basophils (0.0-0.2) 10^3/uL 0.02 D-Dimer (<500) ng/mlFEU VBG pH (7.31-7.41) 7.28 L VBG pCO2 (41-51) mmHg 81 H* VBG pO2 mmHg 20 VBG HCO3 (23-28) mmol/L 38 H VBG Total CO2 (24-29) mmol/L 36 H VBG O2 Saturation % 30 VBG Base Excess (-2-3) mmol/L 11 H Sodium (136-145) mmol/L 136 Potassium (3.5-5.1) mmol/L 4.2 Chloride (98-107) mmol/L 96 L Carbon Dioxide (21.0-32.0) mmol/L 36.8 H Anion Gap (3-11) mmol/L 3.2 BUN (7-18) mg/dL 11 Creatinine (0.55-1.02) mg/dL 0.6 Est GFR (CKD-EPI 2020) (mL/min/1.73m2) 92.39 Glucose (74-106) mg/dL 125 H Calcium (8.5-10.1) mg/dL 9.7 Magnesium (1.8-2.4) mg/dL 1.7 L Total Bilirubin (0.2-1.0) mg/dL AST (15-37) U/L ALT (14-59) U/L Alkaline Phosphatase (46-116) U/L Troponin I (<or=60) ng/L Total Protein (6.4-8.2) g/dL Albumin (3.4-5.0) g/dL Procalcitonin ng/mL COVID-19 Source SARS-CoV-2 (PCR) (Negative) Influenza Type A (PCR) (Negative) Influenza Type B (PCR) (Negative) RSV (PCR) (Negative) Range/Units 07/25/22 07/26/22 07/26/22 07:10 05:45 05:45 WBC (4.4-10.8) 10^3/uL 10.66 RBC (3.93-5.22) 10^6/uL 4.17 Hgb (11.2-15.7) g/dL 11.9 Hct (36.0-46.0) % 38.4 MCV (80-95) fL 92 MCH (27.0-33.0) pg 28.5 MCHC (32.0-36.0) % 31.0 L RDW (11.7-14.6) % 14.1 Plt Count (130-400) 10^3/uL 212 MPV (8.0-11.0) fL 9.5 Immature Gran % 0.3 Neutrophils % 80.3 Lymphocytes % 11.4 Monocytes % 7.8 Eosinophils % 0.0 Basophils % 0.2 Nucleated RBC % (0.0-0.3) % 0.0 Absolute Neutrophils (1.2-6.7) 10^3/uL 8.57 H Absolute Lymphocytes (1.2-3.4) 10^3/uL 1.21 Absolute Monocytes (0.1-0.8) 10^3/uL 0.83 H Absolute Eosinophils (0.0-0.7) 10^3/uL 0.00 Absolute Basophils (0.0-0.2) 10^3/uL 0.02 D-Dimer (<500) ng/mlFEU VBG pH (7.31-7.41) 7.37 VBG pCO2 (41-51) mmHg 64 H* VBG pO2 mmHg 42 VBG HCO3 (23-28) mmol/L 37 H VBG Total CO2 (24-29) mmol/L 34 H VBG O2 Saturation % 81 VBG Base Excess (-2-3) mmol/L 12 H Sodium (136-145) mmol/L 132 L Potassium (3.5-5.1) mmol/L 4.2 Chloride (98-107) mmol/L 95 L Carbon Dioxide (21.0-32.0) mmol/L 34.7 H Anion Gap (3-11) mmol/L 2.3 L BUN (7-18) mg/dL 15 Creatinine (0.55-1.02) mg/dL 0.7 Est GFR (CKD-EPI 2020) (mL/min/1.73m2) 89.02 Glucose (74-106) mg/dL 96 Calcium (8.5-10.1) mg/dL 10.1 Magnesium (1.8-2.4) mg/dL 1.9 Total Bilirubin (0.2-1.0) mg/dL AST (15-37) U/L ALT (14-59) U/L Alkaline Phosphatase (46-116) U/L Troponin I (<or=60) ng/L Total Protein (6.4-8.2) g/dL Albumin (3.4-5.0) g/dL Procalcitonin ng/mL COVID-19 Source SARS-CoV-2 (PCR) (Negative) Influenza Type A (PCR) (Negative) Influenza Type B (PCR) (Negative) RSV (PCR) (Negative) Range/Units 07/26/22 07/26/22 07/26/22 05:45 13:10 16:08 WBC (4.4-10.8) 10^3/uL RBC (3.93-5.22) 10^6/uL Hgb (11.2-15.7) g/dL Hct (36.0-46.0) % MCV (80-95) fL MCH (27.0-33.0) pg MCHC (32.0-36.0) % RDW (11.7-14.6) % Plt Count (130-400) 10^3/uL MPV (8.0-11.0) fL Immature Gran % Neutrophils % Lymphocytes % Monocytes % Eosinophils % Basophils % Nucleated RBC % (0.0-0.3) % Absolute Neutrophils (1.2-6.7) 10^3/uL Absolute Lymphocytes (1.2-3.4) 10^3/uL Absolute Monocytes (0.1-0.8) 10^3/uL Absolute Eosinophils (0.0-0.7) 10^3/uL Absolute Basophils (0.0-0.2) 10^3/uL D-Dimer (<500) ng/mlFEU 888 H VBG pH (7.31-7.41) VBG pCO2 (41-51) mmHg VBG pO2 mmHg VBG HCO3 (23-28) mmol/L VBG Total CO2 (24-29) mmol/L VBG O2 Saturation % VBG Base Excess (-2-3) mmol/L Sodium (136-145) mmol/L Potassium (3.5-5.1) mmol/L Chloride (98-107) mmol/L Carbon Dioxide (21.0-32.0) mmol/L Anion Gap (3-11) mmol/L BUN (7-18) mg/dL Creatinine (0.55-1.02) mg/dL Est GFR (CKD-EPI 2020) (mL/min/1.73m2) Glucose (74-106) mg/dL Calcium (8.5-10.1) mg/dL Magnesium (1.8-2.4) mg/dL Total Bilirubin (0.2-1.0) mg/dL AST (15-37) U/L ALT (14-59) U/L Alkaline Phosphatase (46-116) U/L Troponin I (<or=60) ng/L Total Protein (6.4-8.2) g/dL Albumin (3.4-5.0) g/dL Procalcitonin ng/mL 5.1 COVID-19 Source Nasopharynx SARS-CoV-2 (PCR) (Negative) Negative Influenza Type A (PCR) (Negative) Negative Influenza Type B (PCR) (Negative) Negative RSV (PCR) (Negative) Negative Range/Units 07/27/22 07/27/22 05:59 05:59 WBC (4.4-10.8) 10^3/uL 9.38 RBC (3.93-5.22) 10^6/uL 3.78 L Hgb (11.2-15.7) g/dL 11.0 L Hct (36.0-46.0) % 34.1 L MCV (80-95) fL 90 MCH (27.0-33.0) pg 29.1 MCHC (32.0-36.0) % 32.3 RDW (11.7-14.6) % 13.8 Plt Count (130-400) 10^3/uL 236 MPV (8.0-11.0) fL 9.4 Immature Gran % 0.6 Neutrophils % 74.3 Lymphocytes % 16.6 Monocytes % 8.3 Eosinophils % 0.1 Basophils % 0.1 Nucleated RBC % (0.0-0.3) % 0.0 Absolute Neutrophils (1.2-6.7) 10^3/uL 6.96 H Absolute Lymphocytes (1.2-3.4) 10^3/uL 1.56 Absolute Monocytes (0.1-0.8) 10^3/uL 0.78 Absolute Eosinophils (0.0-0.7) 10^3/uL 0.01 Absolute Basophils (0.0-0.2) 10^3/uL 0.01 D-Dimer (<500) ng/mlFEU VBG pH (7.31-7.41) VBG pCO2 (41-51) mmHg VBG pO2 mmHg VBG HCO3 (23-28) mmol/L VBG Total CO2 (24-29) mmol/L VBG O2 Saturation % VBG Base Excess (-2-3) mmol/L Sodium (136-145) mmol/L 135 L Potassium (3.5-5.1) mmol/L 4.1 Chloride (98-107) mmol/L 97 L Carbon Dioxide (21.0-32.0) mmol/L 36.1 H Anion Gap (3-11) mmol/L 1.9 L BUN (7-18) mg/dL 13 Creatinine (0.55-1.02) mg/dL 0.7 Est GFR (CKD-EPI 2020) (mL/min/1.73m2) 89.02 Glucose (74-106) mg/dL 103 Calcium (8.5-10.1) mg/dL 9.7 Magnesium (1.8-2.4) mg/dL 1.8 Total Bilirubin (0.2-1.0) mg/dL AST (15-37) U/L ALT (14-59) U/L Alkaline Phosphatase (46-116) U/L Troponin I (<or=60) ng/L Total Protein (6.4-8.2) g/dL Albumin (3.4-5.0) g/dL Procalcitonin ng/mL COVID-19 Source SARS-CoV-2 (PCR) (Negative) Influenza Type A (PCR) (Negative) Influenza Type B (PCR) (Negative) RSV (PCR) (Negative)
[2022-07-27] MEDS: Ondansetron 4 MG/2 ML VIAL IVP ×2 (10:29→21:52)
--- NOTE | 2022-07-27 14:16 | PDOC.CMPRO ---
- If Service Date Differs Date of service: 07/27/22 Time of Service: 14:16 Care Management Progress Note S/O: Laney was sitting up in bed when CM met with her. She was pleasant and engaged easily with CM, well known to her from previous hospital stays. Laeny informed CM that she is really sick this admission and that she has pneumonia. She shared that initially she was told that she did not have pneumonia but that this morning Dr. Don informed her that she does. Apparently it was clearer on Chest CT. Laney shared that last night the RT put a disposable hair covering on her under the Bipap and she was able to keep it on for 6 hours. She stated that is a vast improvement over what she has been able to accomplish at home. 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 Laney lives with her son and his family so the children see her every day and they remain very close. A: 77 year old female admitted to [facility] on 07/22/22 for COPD Exacerbation P: Anticipate, Laney will discharge home with [facility] services (if indicated) once medically stable per provider. She will transport via private vehicle with family and follow up with community providers and discharge plan of care as prescribed. CM will continue to follow.
--- NOTE | 2022-07-27 15:12 | W.PALLCONSUL ---
Date of service: 07/27/22 Time of Service: 14:35 History of Present Illness History of Present Illness Chief Complaint: Bilateral on the bony with respiratory failure Narrative: Ms. Stephens is a 76-year-old woman with oxygen dependent COPD and CO2 retention, CKD and chronic neck shoulder and back pain who lives with her family outside of [facility], [place].? She is well-known to the Palliative Care Team.? I last saw her at a home visit 4 weeks ago, and she was doing quite well, back to her previous baseline. 5 days ago she developed cough with purulent sputum and worsening dyspnea and was admitted for bilateral pneumonia with acute exacerbation of severe COPD. Palliative care team has been asked to consult on her for supportive care and to review goals of care, as we have been providing ongoing support to her and her family. Today she tells me she has been very sick . She feels tells me that she feels sicker than she was during her last admission (during her last admission she was severely ill on high flow oxygen, had significant TERESA and was obtunded at times from CO2 retention). She feels very tired. She has been able to eat food. Respiratory therapy has shown her a new trick that allows her BiPAP mask to remain on all night (had been falling off after 2 hours at home). Regarding her chronic pain, she continues to be bothered by the right hip and leg pain as well as bilateral shoulder pain. She has been using topical diclofenac, has she has been doing at home. However she has not been given a heating pad, which she finds very helpful at home. She continues on Butrans Patch 10 mcg. She has as needed acetaminophen ordered but only had 1 dose last night that I can see. Additionally she is getting clonazepam 1 mg 3 times daily as needed, generally receiving 2-3 doses a day (at home I have had difficulty quantitating how often she takes this, she always takes it at bedtime at home, unclear how often she takes additional allow daytime doses). She reports recent stressor: Recently her son has decided to enroll in a 1 year training where he would be going to [place] to train as a [place] crown ironer. This would start in this coming October the patient, her [id number] and 4 grandchildren would remain in their home in [place]. When asked if she is upset about this, she says he is doing what he thinks is best . She thinks she will be okay. I note that [id number] has been an excellent caregiver and surrogate over the months I have known them. She has no other specific complaints or concerns. Assessment and Plan Assessment and plan (1) Bilateral pneumonia: Status: Acute Assessment and plan: Being managed by hospitalist and tarp repairer. Patient will be sent home on additional antibiotics. Patient had episode of C. difficile during last hospital admission. She also has a history of IBS with chronic intermittent diarrhea. She will need careful monitoring and winkler treatment should she develop signs of C. difficile. (2) Acute exacerbation of chronic obstructive pulmonary disease: Status: Acute Assessment and plan: Patient appears to be having milder respiratory issues than at her last hospitalization. As per previous recommendations of pulmonology, O2 saturation should be kept less than 92% and O2 saturations 87-90% are to be tolerated, given her history of CO2 retention. I am hopeful that new technique for keeping BiPAP mask on at night will be successful when she transfers back to home. (3) Palliative care patient: Status: Acute Assessment and plan: Patient continues to have frequent hospital admissions. Not as severely ill during this admission. However concerning with definitely documented pneumonia with this admission. She is DNR/DNI. Patient has previously considered transitioning to hospice. But her last 3 discussions she has been adamantly against hospice and wishes to continue to return to the hospital for treatment for any recurrence of acute illness. No change in code status today or limitations of treatment today. We will continue discussions. Should her baseline worsen, I will discuss hospice with her again. (4) History of Clostridioides difficile colitis: Status: Acute (5) Irritable bowel syndrome with diarrhea: Status: Chronic (6) Acute and chronic respiratory failure with hypercapnia: Status: Resolved (7) Abnormal weight loss: Status: Acute Assessment and plan: Patient's admission weight was almost 2 kg less than her discharge weight a month ago. She was started on Roflumilast about 6 weeks ago. Weight loss is reported to be a common side effect of this medication. Patient reported at her last home visit that she seemed to have somewhat decreased appetite from previous. Continue to monitor. (8) Chronic pain: Status: Chronic Assessment and plan: Patient with chronic pain likely multifactorial (spinal stenosis, history of various vertebral compression fractures, fibromyalgia). Continues on Butrans patch. Suggest the following: -Consider scheduling acetaminophen 3 times daily -Provide patient with heating pad/K pack for neck and back and leg pain PFSH All Active Problems (Updated 07/27/22 @ 15:14 by Liberty Low MD) History of Clostridioides difficile colitis (Acute) Bilateral pneumonia (Acute) LLL pneumonia (Acute ~03/30/18) Acute exacerbation of chronic obstructive pulmonary disease (Acute) Dependence on supplemental oxygen (Acute) Right shoulder pain (Acute) Abnormal weight loss (Acute) Chronic respiratory failure with hypercapnia (Acute) Palliative care patient (Acute) Depression (Chronic) Protein calorie malnutrition (Acute) Chronic pain (Chronic) TERESA (acute kidney injury) (Acute) Acute on chronic respiratory failure with hypoxia and hypercapnia (Acute) Hyponatremia (Chronic) Epigastric pain (Acute) Discharge planning issues (Acute) DVT prophylaxis (Acute) COPD with acute exacerbation (Acute) Odynophagia (Acute) GERD (gastroesophageal reflux disease) (Chronic) Chronic obstructive pulmonary disease (Chronic) Lumbosacral spondylosis without myelopathy (Acute) Fibromyalgia (Acute) Fall (Acute) Low back pain (Acute) Discharge planning issues (Acute) T12 compression fracture (Acute) Hemoptysis (Acute) History of cataract removal with insertion of prosthetic lens (Acute 06/05/15) Status post appendectomy (Acute) Status post laminectomy (Acute) Pain from implanted hardware (Chronic 10/30/18) S/P Hardware removal Chronic anxiety (Chronic 06/22/13) Chronic emphysema syndrome (Chronic) Chronic pain in right shoulder (Chronic 11/20/13) Moderate protein malnutrition (Chronic 11/20/13) Neck pain (Acute) Irritable bowel syndrome with diarrhea (Chronic) History of tobacco abuse (Chronic) Anxiety (Chronic) Medical History (Updated 07/27/22 @ 15:14 by Liberty Low MD) Acute exacerbation of chronic obstructive pulmonary disease (COPD) C. difficile colitis Cervical neck pain with evidence of disc disease (06/22/13) Contusion of right knee, initial encounter DNI (do not intubate) DNR (do not resuscitate) Ongoing leg pain continue nSaid prn tramadol see surgeon next week consider topical analgesic on surrounding skin Pneumothorax, spontaneous, tension (04/11/10) POLST (Physician Orders for Life-Sustaining Treatment) Surgical History (Updated 06/29/22 @ 10:32 by Ralph Rahman MD) Appendectomy CHEST TUBE Extraction of cataract 06/05/15; LEFT EYE; DR. ARAUZ H/O section Hx of hysterectomy LAMINECTOMY CERVICAL SPINE Right femoral fracture (05/09/17) ORIF DOS: 05/10/17 Dr. Bob Family History Mother , at age 89, cardiac problems No problems noted. Father , at 81 Cancer Throat cancer Brother , at 71 Colon cancer Sister Diabetes DM2 Sister Diabetes DM2 Son No problems noted. Social History Smoking/Tobacco Use Status: Former Tobacco Use Quit Date: 09/16/13 Pack-years: 50 Smoking risk assessment performed?: Yes Alcohol Intake: former Year quit: 1979 Drug use: Never Substance use type: does not use Household members: none Housing: apartment Do you feel safe at home: Yes Do you feel safe in your relationship?: No Additional Social history: 16 years ago. Originally from [place], moved here to be near son and grand children. [place] in [place] apartment [place] House[place]. Enjoys contact with 4 grandchildren throughout the day (they are homeschooled and her home much of the time). Bedbound approximately 22 hours a day. On disability due to chronic back pain. 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 Approximate 75 pack year history of tobacco. No alcohol or illicit drug use endorsed. Exam Narrative Exam Narrative: Pleasant but tired appearing thin elderly woman. Intermittent harsh deep cough. No tachypnea. Able to speak in complete sentences without of breath. Moves easily in bed. Does not appear to be in discomfort. No peripheral edema. Demonstrates for me how to put on the mask over shower, which makes this set up more stable. Results Last Vital Signs Temp 36.9 C 07/27/22 11:28 Pulse 87 07/27/22 11:28 Resp 18 07/27/22 11:28 BP 108/60 07/27/22 11:28 Pulse Ox 96 07/27/22 11:28 Labs 07/27/22 05:59 07/27/22 05:59 Labs: Laboratory Results - last 24 hr 07/25/22 07/26/22 07/27/22 18:16 16:08 05:59 WBC RBC Hgb Hct MCV MCH MCHC RDW Plt Count MPV Immature Gran % Neutrophils % Lymphocytes % Monocytes % Eosinophils % Basophils % Nucleated RBC % Absolute Neutrophils Absolute Lymphocytes Absolute Monocytes Absolute Eosinophils Absolute Basophils D-Dimer 888 H Sodium 135 L Potassium 4.1 Chloride 97 L Carbon Dioxide 36.1 H Anion Gap 1.9 L BUN 13 Creatinine 0.7 Est GFR (CKD-EPI 2020) 89.02 Glucose 103 Calcium 9.7 Magnesium 1.8 Urine Legionella Ag Negative 07/27/22 05:59 WBC 9.38 RBC 3.78 L Hgb 11.0 L Hct 34.1 L MCV 90 MCH 29.1 MCHC 32.3 RDW 13.8 Plt Count 236 MPV 9.4 Immature Gran % 0.6 Neutrophils % 74.3 Lymphocytes % 16.6 Monocytes % 8.3 Eosinophils % 0.1 Basophils % 0.1 Nucleated RBC % 0.0 Absolute Neutrophils 6.96 H Absolute Lymphocytes 1.56 Absolute Monocytes 0.78 Absolute Eosinophils 0.01 Absolute Basophils 0.01 D-Dimer Sodium Potassium Chloride Carbon Dioxide Anion Gap BUN Creatinine Est GFR (CKD-EPI 2020) Glucose Calcium Magnesium Urine Legionella Ag
--- NOTE | 2022-07-27 15:32 | PT.INTREAT ---
Date of service: 07/27/22 Time of Service: 10:20 PT Notes Visit Reasons: COPD Exacerbation Inpatient Physical Therapy Treatment Note [facility] Date: 07/27/2022 PRECAUTIONS: Activity as tolerated SUBJECTIVE: Laney is pleasant and agreeable to participating in PT. She reports that she is feeling nauseous and unwell overall today. OBJECTIVE: PAIN: No c/o pain BED MOBILITY/TRANSFERS: Sit-supine: I Supine-sit: I Sit-stand: I Stand-sit: I GAIT Assistive Device: FWW Weight bearing: Full Assist: S Distance: 200' Deviation: Mild SOB, anteroflexed posture, short step height and length, increased fatigue, 3L O2 via NC THEREX: Declined due to not feeling well ASSESSMENT: Patient tolerated session without complaint of SOB. She appears limited due to not feeling well today. She demonstrates independence with transfers and bed mobility at this time. PLAN: Continue with global strengthening and general conditioning for improved mobility and activity tolerance. TREATMENT CODE/TIME: Session 1: 15 minutes; [id number] (10:20) Session 2: Refused
--- NOTE | 2022-07-27 16:12 | W.PM.PROGNOT ---
Date of Service Date of service: 07/27/22 Time of Service: 16:12 Assessment and Plan Assessment and plan (1) Acute exacerbation of chronic obstructive pulmonary disease: Status: Acute Assessment and plan: continue steroids, doxycycline day 5 New infiltrates on CXR noted so Cefepime added day 3, respiratory status stable continue pulmonary toileting. Nebs SPO2 in am on 3 LPM NC > 88% - on BiPap in the lisa, 01/20 (2) LLL pneumonia: Status: Acute Assessment and plan: on doxycycline Cefepime (3) Acute on chronic respiratory failure with hypoxia and hypercapnia: Status: Acute Assessment and plan: Continues to have increased difficulty breathing and has SPO2 in the high 80s. She is coughing up yellow sputum. Specimen pending. CXR - new infliltrates on CXR - added Cefepime day 2, step down to augmentin BC Urine step and legionella pending MRSA pending (4) Depression: Status: Chronic Assessment and plan: Continue home meds; Sertraline (5) Protein calorie malnutrition: Status: Acute Assessment and plan: Offer protein inbetween meals/shakes (6) DVT prophylaxis: Status: Deleted Assessment and plan: lovenox 30 mg daily, d/t BMI - per NIH Specifically, [id number] patients may benefit from 30 mg subcutaneously daily for VTE prophylaxis (7) Discharge planning issues: Status: Deleted Assessment and plan: anticipate home with resumption of HH services once medically stable - consider hospice discussed with Dr. Penaloza Subjective Subjective Patient reports: no new complaints, feels better, tolerating a regular diet, shortness of breath and afebrile; denies diarrhea or vomiting Interval history since last seen: Laney is improving and almost at baseline, she is feeling better and is asking when she can go home. Exam Const General: cooperative, no acute distress and ill appearing chronically Orientation: alert, awake and oriented x3 HENMT Head: normal to inspection Eyes General: appearance normal, both eyes and all related structures Pupils: PERRL EOM: EOM intact bilaterally Neck Neck: normal visual inspection Chest Chest: normal inspection of the chest and no tenderness Resp Effort & Inspection: normal respiratory effort and able to speak in complete sentences Auscultation: diminished lung sounds bilaterally throughout and rales on the right at the base Cardio Rhythm: regular rhythm GI Inspection: normal to inspection Palpation: soft Skin General skin exam: no rashes or lesions noted Neuro General: patient alert, patient awake and patient oriented x3 Cognition: normal cognition Speech: speech normal Motor: muscle tone normal throughout Sensory Exam: no sensory deficits noted Extrem General: normal to inspection, full ROM, capillary refill normal, no calf tenderness bilaterally and no edema Psych Appearance: grossly normal Mental Status: mental status grossly normal Speech and Movement: speech and movement normal Mood: congruent mood Affect: normal affect Objective Last Vital Signs Temp 36.6 C 07/27/22 15:50 Pulse 78 07/27/22 15:50 Resp 18 07/27/22 15:50 BP 101/57 L 07/27/22 15:50 Pulse Ox 94 07/27/22 15:50 Laboratory Results - last 24 hr 07/25/22 07/26/22 07/27/22 18:16 16:08 05:59 WBC RBC Hgb Hct MCV MCH MCHC RDW Plt Count MPV Immature Gran % Neutrophils % Lymphocytes % Monocytes % Eosinophils % Basophils % Nucleated RBC % Absolute Neutrophils Absolute Lymphocytes Absolute Monocytes Absolute Eosinophils Absolute Basophils D-Dimer 888 H Sodium 135 L Potassium 4.1 Chloride 97 L Carbon Dioxide 36.1 H Anion Gap 1.9 L BUN 13 Creatinine 0.7 Est GFR (CKD-EPI 2020) 89.02 Glucose 103 Calcium 9.7 Magnesium 1.8 Urine Legionella Ag Negative 07/27/22 05:59 WBC 9.38 RBC 3.78 L Hgb 11.0 L Hct 34.1 L MCV 90 MCH 29.1 MCHC 32.3 RDW 13.8 Plt Count 236 MPV 9.4 Immature Gran % 0.6 Neutrophils % 74.3 Lymphocytes % 16.6 Monocytes % 8.3 Eosinophils % 0.1 Basophils % 0.1 Nucleated RBC % 0.0 Absolute Neutrophils 6.96 H Absolute Lymphocytes 1.56 Absolute Monocytes 0.78 Absolute Eosinophils 0.01 Absolute Basophils 0.01 D-Dimer Sodium Potassium Chloride Carbon Dioxide Anion Gap BUN Creatinine Est GFR (CKD-EPI 2020) Glucose Calcium Magnesium Urine Legionella Ag Time Spent with Patient Time Spent with Patient: 25-34 minutes Time was spent: preparing to see the patient(eg.review tests), ordering medications,tests, procedures, referring, communicating with other health hearing healthcare practitioner, indepentently interpreting results, counseling the patient and care coordination
[2022-07-27] MEDS: diphenhydrAMINE 25 MG CAP 50 MG PO (21:46)
[2022-07-27] MEDS: Mirtazapine 15 MG TAB PO (21:47)
[2022-07-27] MEDS: Calcium Carbonate *TUMS* 500 MG CHEW PO (23:37)
[2022-07-28] VITALS (16 sets, daily range): BP systolic 106–119; BP diastolic 60–74; PULSE 68–87; RESP 10–24; TEMP 36.1–36.8; O2SAT 87–98
[2022-07-28 00:12] LABS: Streptococcus Pneumoniae Ag, U Negative (Negative)
[2022-07-28 07:15] LABS: Abs Immature Grans 0.09 10^3/uL (0.0-0.06); Absolute Basophil Count 0.03 10^3/uL (0.0-0.2); Absolute Eosinophil Count 0.03 10^3/uL (0.0-0.7); Absolute Lymphocyte Count 1.69 10^3/uL (1.2-3.4); Absolute Monocyte Count 0.76 10^3/uL (0.1-0.8); Basophils % 0.3; Eosinophils % 0.3; HCT 38.8 % (36.0-46.0); HGB 11.8 g/dL (11.2-15.7); Lymphocytes % 18.8; MCH 27.8 pg (27.0-33.0); MCHC 30.4 % (32.0-36.0); MCV 91 fL (80-95); MPV 8.9 fL (8.0-11.0); Monocytes % 8.4; Neutrophils % 71.2; Platelet Count 276 10^3/uL (130-400); RBC 4.25 10^6/uL (3.93-5.22); RDW 13.9 % (11.7-14.6)
[2022-07-28 07:29] LABS: Anion Gap 2.2 mmol/L (3-11); BUN 13 mg/dL (7-18); CO2 38.8 mmol/L (21.0-32.0); CREATININE 0.8 mg/dL (0.55-1.02); Calcium 9.6 mg/dL (8.5-10.1); Chloride 96 mmol/L (98-107); Estimated GFR 75.84 (mL/min/1.73m2); Glucose 85 mg/dL (74-106); Magnesium 1.8 mg/dL (1.8-2.4); Potassium 4.2 mmol/L (3.5-5.1); Sodium 137 mmol/L (136-145)
[2022-07-28] MEDS: Calcium Carbonate *TUMS* 500 MG CHEW PO (08:39)
[2022-07-28] MEDS: clonazePAM 1 MG TAB PO ×2 (08:39→21:31)
[2022-07-28] MEDS: CEFEPIME 2 GM in Normal Saline 100 ML IVPB (08:39)
[2022-07-28] MEDS: Acetaminophen 500 MG TAB 1000 MG PO ×2 (08:40→21:30)
[2022-07-28] MEDS: Cholecalciferol (Vitamin D3) 1,000 UNIT TAB 3000 UNITS PO (08:41)
[2022-07-28] MEDS: Sucralfate 1 GM TAB PO ×4 (08:41→21:31)
[2022-07-28] MEDS: Enoxaparin 40 MG/0.4 ML SYR SC (08:41)
[2022-07-28] MEDS: Acetylcysteine 600 MG CAP PO (08:42)
[2022-07-28] MEDS: Doxycycline Hyclate 100 MG CAP PO (08:42)
[2022-07-28] MEDS: Omeprazole 20 MG CAPCR 40 MG PO (08:42)
[2022-07-28] MEDS: predniSONE 20 MG TAB 40 MG PO (08:43)
[2022-07-28] MEDS: Gabapentin 100 MG CAP PO ×3 (08:44→19:57)
[2022-07-28] MEDS: Roflumilast 500 MCG TAB PO (08:44)
[2022-07-28] MEDS: Sertraline 100 MG TAB PO (08:44)
[2022-07-28] MEDS: Diclofenac 1% Gel 100 GM TUBE TP ×2 (08:45→16:17)
[2022-07-28] MEDS: Benzocaine/Menthol LOZG 15/BOX 1 EACH SUC (08:45)
[2022-07-28] MEDS: Ipratropium/Albuterol 4 GM 120 PUFF INH IH ×4 (08:54→20:00)
--- NOTE | 2022-07-28 11:20 | PTTR_ITS ---
Date of service: 07/28/22 Time of Service: 10:10 PT Notes Visit Reasons: COPD Exacerbation Inpatient Physical Therapy Treatment Note [facility] Date: 07/28/2022 PRECAUTIONS: Activity as tolerated SUBJECTIVE: Laney is pleasant and agreeable to participating in PT. She reports that she is feeling a little better today. She reports that she would like to discharge to home today. OBJECTIVE: PAIN: No c/o pain BED MOBILITY/TRANSFERS: Sit-supine: I Supine-sit: I Sit-stand: I Stand-sit: I GAIT Assistive Device: FWW Weight bearing: Full Assist: S Distance: 200' Deviation: Mild SOB, short step height and length, minimal LOB x5 with self- recovery, 3L O2 via NC ASSESSMENT: Patient tolerated session without complaint of SOB. She demonstrates independence with transfers and bed mobility at this time. PLAN: Continue with global strengthening and general conditioning for improved mobility and activity tolerance. TREATMENT CODE/TIME: 15 minutes; 31799 (10:10)
--- NOTE | 2022-07-28 13:35 | PDOC.CMPRO ---
- If Service Date Differs Date of service: 07/28/22 Time of Service: 13:35 Care Management Progress Note S/O: Laney was sitting up in bed when CM met with her. She was pleasant and easily engages in conversation. Per pt, she continues to feel better and is hopeful that she will be able to discharge home tomorrow. She notes that her son will bring her portable oxygen supply and drive her home when she is ready for discharge. She is agreeable to New [facility] RN/PT/OT/PARTY PLAN SELLING DISTRIBUTOR services. CM will follow. A: 77 year old female admitted to [facility] on 07/22/22 for COPD Exacerbation P: Anticipate, Laney will discharge home with New [facility] RN/PT/OT/PARTY PLAN SELLING DISTRIBUTOR, once medically stable per provider. Her son will bring her portable O2 concentrator to the hospital prior to discharge and drive her home. Laney will follow up with community providers and discharge plan of care as prescribed. Palliative Care will continue to follow. CM will continue to follow.
--- NOTE | 2022-07-28 15:57 | PT.INTREAT ---
PT Notes Visit Reasons: COPD Exacerbation Date: 07/28/2022 PRECAUTIONS: Activity as tolerated SUBJECTIVE: Pt reports 01/25 for pain this afternoon, pt refused OOB activity, reports that she has just recently received meds 2hours ago. OBJECTIVE: ? PAIN:01/25 ? ASSESSMENT:? Patient tolerated session without complaint of SOB.? She demonstrates independence with transfers and bed mobility at this time. Therapeutic Activities [id number] mins: instruction in dynamic activities with one on one patient contact by the provider to improve functional performance?as follows: Chest expansion exercise in half sitting with cues for DBE Pelvic movement anterior/posterior tilting Trunk rotation L/R Trunk flexion/extension assessment: Pt refused further engagement and requested to stay in high semi de leon to help with breathing. Sao2 at 92% 2L 02 84bpm. PLAN: Continue with global strengthening and general conditioning for improved mobility and activity tolerance. TREATMENT CODE/TIME: 15 minutes; [id number] (03:30-3:45pm)
--- NOTE | 2022-07-28 17:13 | W.PM.PROGNOT ---
Date of Service Date of service: 07/28/22 Time of Service: 17:13 Assessment and Plan Assessment and plan (1) Acute exacerbation of chronic obstructive pulmonary disease: Status: Acute Assessment and plan: continue steroids, doxycycline day 6 New infiltrates on CXR noted so Cefepime added day 2, respiratory status stable, will downstep to augmentin in anticipation of discharge continue pulmonary toileting. Nebs SPO2 in am on 3 LPM NC > 88% - on BiPap in the lisa, 01/20 (2) LLL pneumonia: Status: Acute Assessment and plan: on doxycycline and augmentin day 2 (3) Acute on chronic respiratory failure with hypoxia and hypercapnia: Status: Acute Assessment and plan: Continues to have increased difficulty breathing and has SPO2 in the high 80s. She is coughing up yellow sputum. Specimen pending. CXR - new infliltrates on CXR - added Cefepime day 2, step down to augmentin BC Urine step and legionella pending MRSA pending (4) Depression: Status: Chronic Assessment and plan: Continue home meds; Sertraline (5) Protein calorie malnutrition: Status: Acute Assessment and plan: Offer protein inbetween meals/shakes (6) DVT prophylaxis: Status: Acute Assessment and plan: lovenox 30 mg daily, d/t BMI - per NIH Specifically, [id number] patients may benefit from 30 mg subcutaneously daily for VTE prophylaxis (7) Discharge planning issues: Status: Acute Assessment and plan: anticipate home tomorrow with resumption of services once medically stable - consider hospice discussed with Dr. Penaloza Subjective Subjective Patient reports: no new complaints, feels better, tolerating liquids well, tolerating a regular diet, voiding w/o difficulty, diarrhea (loose stooling), shortness of breath (at baseline) and afebrile Exam Const General: cooperative, no acute distress and ill appearing chronically Orientation: alert, awake and oriented x3 HENMT Head: normal to inspection Eyes General: appearance normal, both eyes and all related structures Pupils: PERRL EOM: EOM intact bilaterally Neck Neck: normal visual inspection Chest Chest: normal inspection of the chest and no tenderness Resp Effort & Inspection: normal respiratory effort and able to speak in complete sentences Auscultation: diminished lung sounds bilaterally throughout and rales on the right at the base Cardio Rhythm: regular rhythm GI Inspection: normal to inspection Palpation: soft Skin General skin exam: no rashes or lesions noted Neuro General: patient alert, patient awake and patient oriented x3 Cognition: normal cognition Speech: speech normal Motor: muscle tone normal throughout Sensory Exam: no sensory deficits noted Extrem General: normal to inspection, full ROM, capillary refill normal, no calf tenderness bilaterally and no edema Psych Appearance: grossly normal Mental Status: mental status grossly normal Speech and Movement: speech and movement normal Affect: normal affect Objective Last Vital Signs Temp 36.1 C L 07/28/22 15:36 Pulse 85 07/28/22 15:36 Resp 18 07/28/22 15:36 BP 106/70 07/28/22 15:36 Pulse Ox 93 07/28/22 16:00 Laboratory Results - last 24 hr 07/25/22 07/28/22 07/28/22 18:16 06:25 06:25 WBC 9.00 RBC 4.25 Hgb 11.8 Hct 38.8 MCV 91 MCH 27.8 MCHC 30.4 L RDW 13.9 Plt Count 276 MPV 8.9 Immature Gran % 1.0 Neutrophils % 71.2 Lymphocytes % 18.8 Monocytes % 8.4 Eosinophils % 0.3 Basophils % 0.3 Nucleated RBC % 0.0 Absolute Neutrophils 6.40 Absolute Lymphocytes 1.69 Absolute Monocytes 0.76 Absolute Eosinophils 0.03 Absolute Basophils 0.03 Sodium 137 Potassium 4.2 Chloride 96 L Carbon Dioxide 38.8 H Anion Gap 2.2 L BUN 13 Creatinine 0.8 Est GFR (CKD-EPI 2020) 75.84 Glucose 85 Calcium 9.6 Magnesium 1.8 Ur Strep pneumoniae Ag Negative Time Spent with Patient Time Spent with Patient: 25-34 minutes Time was spent: preparing to see the patient(eg.review tests), obtaining and/or reviewing separately otained hiistory, ordering medications,tests, procedures, indepentently interpreting results, counseling the patient and care coordination
[2022-07-28] MEDS: Amoxicillin 875/Clav. 125 TAB PO (19:57)
[2022-07-28] MEDS: Mirtazapine 15 MG TAB PO (21:31)
[2022-07-29 03:17] VITALS: BP 118/72; PULSE 74; RESP 18; TEMP 36.3; O2SAT 90
[2022-07-29] MEDS: Gabapentin 100 MG CAP PO ×2 (07:30→13:58)
[2022-07-29] MEDS: Acetylcysteine 600 MG CAP PO (07:30)
[2022-07-29] MEDS: Sertraline 100 MG TAB PO (07:30)
[2022-07-29] MEDS: Cholecalciferol (Vitamin D3) 1,000 UNIT TAB 3000 UNITS PO (07:30)
[2022-07-29] MEDS: Sucralfate 1 GM TAB PO ×2 (07:30→11:45)
[2022-07-29] MEDS: Omeprazole 20 MG CAPCR 40 MG PO (07:30)
[2022-07-29] MEDS: clonazePAM 1 MG TAB PO ×2 (07:30→13:58)
[2022-07-29] MEDS: Enoxaparin 40 MG/0.4 ML SYR SC (07:30)
[2022-07-29] MEDS: Amoxicillin 875/Clav. 125 TAB PO (07:30)
[2022-07-29] MEDS: Roflumilast 500 MCG TAB PO (07:30)
[2022-07-29 07:48] VITALS: BP 113/69; PULSE 72; RESP 20; TEMP 37.1; O2SAT 95
[2022-07-29] MEDS: Ipratropium/Albuterol 4 GM 120 PUFF INH IH ×2 (08:38→11:31)
[2022-07-29] MEDS: predniSONE 20 MG, predniSONE 10 MG 30 MG PO (09:10)
[2022-07-29] MEDS: Diclofenac 1% Gel 100 GM TUBE TP (09:11)
--- NOTE | 2022-07-29 10:43 | W.PM.DS.N ---
Date of service: 07/29/22 Time of Service: 10:44 DS: Diagnosis Discharge Diagnosis (1) Acute exacerbation of chronic obstructive pulmonary disease: Status: Acute (2) LLL pneumonia: Status: Acute (3) Acute on chronic respiratory failure with hypoxia and hypercapnia: Status: Acute (4) Depression: Status: Chronic (5) Protein calorie malnutrition: Status: Acute Discharge Plan Disposition Patient Disposition: Home W/Home Health Services Condition: Improving Discharge Details Reason For Visit: COPD Exacerbation Admit Date/Time: 07/22/22 16:54 Admit Provider: Jimbo Reyes Attending Provider: Jimbo Reyes Primary Care Provider: Ralph Rahman Hospital Course Hospital Course: This is a 77-year-old female with a history of COPD dependent on home oxygen dependent, former smoker, fibromyalgia presented to the ED from home for decreased p.o. intake, generalized fatigue, cough with green sputum and increasing shortness of breath over the past few days.? Work up in the ED concerning for copd exacerbation. Hemodynamically stable. She received multiple nebulizers, IV steroids and was admitted for further management. Her hospital course was complicated with pneumonia and antibiotics were added. she responded and continued to slowly improve. she is now at her chronically ill baseline and stable for discharge to home. she will be downstepped to augmentin to complete 5 more days, she has completed 6+ days of doxycycline. she will continue to taper steroids. discharge discussed with DR Penaloza. Home Meds and New Rx's Prescriptions: New prednisone 10 mg Tablet See Rx Instructions .ROUTE .COMPLEX Qty: 30 0RF Rx Instructions: 30 mg orally for 3 days, then 20 mg for 3 days, then 10 mg for 3 days, then 5 mg amoxicillin-pot clavulanate 875-125 mg Tablet 1 tab PO BID Qty: 10 0RF Continued (DME) Oxygen Tank See Rx Instructions .ROUTE .MEDSUPPLY Qty: 1 Rx Instructions: As directed PreserVision AREDS-2 250-90-40-1 mg Capsule 2 cap PO DAILY clonazepam 1 mg tablet 1 mg PO TID PRN (Reason: anxiety) Qty: 90 2RF Rx Instructions: dose increase 02/23/22 sucralfate 1 gram tablet 1 g PO AC & HS Qty: 120 5RF diphenhydramine HCl 50 mg capsule 50 mg PO QHS Qty: 1 0RF roflumilast [Daliresp] 500 mcg tablet 500 mcg PO DAILY Qty: 90 3RF Trelegy Ellipta 100-62.5-25 mcg blister with device 1 inh IH DAILY Qty: 28 11RF sertraline 100 mg tablet 100 mg PO DAILY Qty: 90 3RF acetaminophen 500 mg tablet 1,000 mg PO Q8H PRN (Reason: pain) Qty: 90 8RF gabapentin 100 mg capsule 100 mg PO TID Qty: 90 3RF diclofenac sodium 1 % gel 2 g topical QID PRN (Reason: pain) Qty: 100 1RF Rx Instructions: apply to single elbow, wrist or hand; for hand includes palm/fingers/back of hand morphine concentrate 100 mg/5 mL (20 mg/mL) solution See Rx Instructions PO Q1H PRN MDD 120 mg Qty: 30 0RF Rx Instructions: 0.25-1.0 ml orally every 1 hour, as needed; HOSPICE mirtazapine 15 mg tablet 15 mg PO HS Qty: 90 3RF buprenorphine [Butrans] 10 mcg/hour patch weekly 1 patch transdermal Q7D Qty: 4 0RF omeprazole 40 mg capsule,delayed release(DR/EC) 40 mg PO DAILY Qty: 30 5RF acetylcysteine 600 mg capsule See Rx Instructions .ROUTE .COMPLEX Qty: 90 3RF Dose Instruction: TAKE ONE CAPSULE BY MOUTH EVERY DAY Rx Instructions: TAKE 1 CAPSULE BY MOUTH EVERY DAY Salonpas 1 EACH adhesive patch,medicated 1 ea Topical .DAILY X 12 HOURS PRN (Reason: Pain) naloxone [Narcan] 4 mg/actuation spray,non-aerosol 1 spray KELL Q2-3M PRN (Reason: opioid overdose) Qty: 2 0RF Rx Instructions: spray 1 dose into ONE nostril; alternate nostrils w each dose until help arrives Never used cholecalciferol (vitamin D3) [Vitamin D3] 2,000 unit Tablet 3,000 unit PO DAILY doxylamine succinate 25 mg Tablet 25 mg PO QHS PRN (Reason: Insomnia) calcium carbonate 600 mg calcium (1.5 gram) Tablet,Chewable 3 - 4 tab PO TID PRN PRN (Reason: Heartburn) cranberry extract-vitamin C 250-60 mg Capsule 1 cap PO DAILY ipratropium-albuterol 0.5 mg-3 mg(2.5 mg base)/3 mL Solution For Nebulization 3 ml UPD TID Qty: 180 1RF Thermotabs 287-180-15 mg Tablet 1 tab PO BID Qty: 60 0RF Discharge Instructions Instructions: Pneumonia (DC), Chronic Lung Disease and Infection Prevention (DC) Additional Instructions: taper prednisone as directed. take antibiotics as directed, even if you feel better. drink at least 6-8 glasses of water daily to stay well hydrated. Stand Alone Forms: Nursing Discharge Form Referrals: Ernestine Don MD [ [facility] STAFF PHYSICIAN] - 08/17/22 11:00 am Ralph Rahman MD [Primary Care Provider] - 08/04/22 10:40 am Activity:: Activity as Tolerated Equipment/Supplies:: No Equipment Needed Diet:: As Tolerated Discharge Orders Discharge Orders: Discharge Order (Routine); Ordered 07/29/22 Ordered By: Danielle Johnson DS: Summary Time Spent with Patient providing and/or coordinating discharge services: Greater than 30 minutes Status at Discharge Functional status at discharge: uses cane/walker Overall status at discharge: patient is progressing back to baseline Mental Status: mental status grossly normal Speech and Movement: speech and movement normal Mood: congruent mood Affect: normal affect Exam Const General: cooperative, no acute distress and ill appearing chronically Orientation: alert, awake and oriented x3 HENMT Head: normal to inspection Eyes General: appearance normal, both eyes and all related structures Pupils: PERRL EOM: EOM intact bilaterally Neck Neck: normal visual inspection Chest Chest: normal inspection of the chest and no tenderness Resp Effort & Inspection: normal respiratory effort and able to speak in complete sentences Auscultation: diminished lung sounds bilaterally throughout and rales on the right at the base Cardio Rhythm: regular rhythm GI Inspection: normal to inspection Palpation: soft Skin General skin exam: no rashes or lesions noted Neuro General: patient alert, patient awake and patient oriented x3 Cognition: normal cognition Speech: speech normal Motor: muscle tone normal throughout Sensory Exam: no sensory deficits noted Extrem General: normal to inspection, full ROM, capillary refill normal, no calf tenderness bilaterally and no edema Psych Appearance: grossly normal Mental Status: mental status grossly normal Speech and Movement: speech and movement normal Mood: congruent mood Affect: normal affect DS: Data Vitals/I&O Vitals and I&O: Vital Signs Temperature 37.1 C 07/29/22 07:48 Temperature Source Tympanic 07/29/22 07:48 Pulse 72 07/29/22 07:48 Pulse Rhythm Regular 07/29/22 07:48 Respiratory Rate 20 07/29/22 07:48 Respiratory Effort Normal, Non-Labored 07/29/22 07:48 Respiratory Depth Normal 07/29/22 07:48 Respiratory Pattern Normal 07/29/22 07:48 Blood Pressure 113/69 07/29/22 07:48 Blood Pressure Position Sitting 07/22/22 12:03 Pulse Oximetry 95 07/29/22 07:48 Oxygen Delivery Method Nasal Cannula 07/29/22 07:48 Oxygen Flow Rate 3 07/29/22 07:48 Fraction of Inspired Oxygen (FIO2) 35 07/28/22 10:15 Pain Level 0 07/29/22 07:48 Comment pt is sating at 90-91% on humidified 3L nasal cannula 07/26/22 15:10 Intake & Output 07/28/22 07/28/22 07/29/22 11:59 23:59 11:59 Intake Total 525 / 1325 800 / 1325 Output Total 650 / 2000 1350 / 2000 700 / 700 Balance -125 / -675 -550 / -675 -700 / -700 Intake: IV 100 / 100 Oral 425 / 1225 800 / 1225 Output: Urine 650 / 2000 1350 / 2000 700 / 700 Other: Urine Color Straw Yellow Yellow Urine Appearance Clear Clear Clear Urine Odor Normal Normal None Comment unmeasured, mix with stool Stool Size Large Moderate Large Stool Characteristics Soft Soft Formed Formed Brown Brown Brown Voiding Methods Bedside Commode Bedside Commode Bedside Commode Data Completed and Pending Labs on day of discharge: Preliminary micro results at discharge 07/25/22 07:10 Blood Culture - Preliminary Blood NO GROWTH 96 HOURS 07/25/22 06:45 Blood Culture - Preliminary Blood NO GROWTH 96 HOURS [facility] All Active Problems (Updated 07/27/22 @ 15:14 by Liberty Low MD) History of Clostridioides difficile colitis (Acute) Bilateral pneumonia (Acute) LLL pneumonia (Acute ~03/30/18) Acute exacerbation of chronic obstructive pulmonary disease (Acute) Dependence on supplemental oxygen (Acute) Right shoulder pain (Acute) Abnormal weight loss (Acute) Chronic respiratory failure with hypercapnia (Acute) Palliative care patient (Acute) Depression (Chronic) Protein calorie malnutrition (Acute) Chronic pain (Chronic) TERESA (acute kidney injury) (Acute) Acute on chronic respiratory failure with hypoxia and hypercapnia (Acute) Hyponatremia (Chronic) Epigastric pain (Acute) Discharge planning issues (Acute) DVT prophylaxis (Acute) COPD with acute exacerbation (Acute) Odynophagia (Acute) GERD (gastroesophageal reflux disease) (Chronic) Chronic obstructive pulmonary disease (Chronic) Lumbosacral spondylosis without myelopathy (Acute) Fibromyalgia (Acute) Fall (Acute) Low back pain (Acute) Discharge planning issues (Acute) T12 compression fracture (Acute) Hemoptysis (Acute) History of cataract removal with insertion of prosthetic lens (Acute 06/05/15) Status post appendectomy (Acute) Status post laminectomy (Acute) Pain from implanted hardware (Chronic 10/30/18) S/P Hardware removal Chronic anxiety (Chronic 06/22/13) Chronic emphysema syndrome (Chronic) Chronic pain in right shoulder (Chronic 11/20/13) Moderate protein malnutrition (Chronic 11/20/13) Neck pain (Acute) Irritable bowel syndrome with diarrhea (Chronic) History of tobacco abuse (Chronic) Anxiety (Chronic) Medical History (Updated 07/27/22 @ 15:14 by Liberty Low MD) Acute exacerbation of chronic obstructive pulmonary disease (COPD) C. difficile colitis Cervical neck pain with evidence of disc disease (06/22/13) Contusion of right knee, initial encounter DNI (do not intubate) DNR (do not resuscitate) Ongoing leg pain continue nSaid prn tramadol see surgeon next week consider topical analgesic on surrounding skin Pneumothorax, spontaneous, tension (04/11/10) POLST (Physician Orders for Life-Sustaining Treatment) Surgical History (Updated 06/29/22 @ 10:32 by Ralph Rahman MD) Appendectomy CHEST TUBE Extraction of cataract 06/05/15; LEFT EYE; DR. ARAUZ H/O section Hx of hysterectomy LAMINECTOMY CERVICAL SPINE Right femoral fracture (05/09/17) ORIF DOS: 05/10/17 Dr. Bob Family History Mother , at age 89, cardiac problems No problems noted. Father , at 81 Cancer Throat cancer Brother , at 71 Colon cancer Sister Diabetes DM2 Sister Diabetes DM2 Son No problems noted. Social History Smoking/Tobacco Use Status: Former Tobacco Use Quit Date: 09/16/13 Pack-years: 50 Smoking risk assessment performed?: Yes Alcohol Intake: former Year quit: 1979 Drug use: Never Substance use type: does not use Household members: none Housing: apartment Do you feel safe at home: Yes Do you feel safe in your relationship?: No Additional Social history: 16 years ago. Originally from [place], moved here to be near son and grand children. [place] House[place]. Enjoys contact with 4 grandchildren throughout the day (they are homeschooled and her home much of the time). Bedbound approximately 22 hours a day. On disability due to chronic back pain. 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 Approximate 75 pack year history of tobacco. No alcohol or illicit drug use endorsed. Time Spent with Patient Time Spent with Patient: 45-69 minutes Time was spent: preparing to see the patient(eg.review tests), obtaining and/or reviewing separately otained hiistory, ordering medications,tests, procedures, referring, communicating with other health rn care transition, indepentently interpreting results, counseling the patient and care coordination
[2022-07-29 11:28] VITALS: BP 123/66; PULSE 82; RESP 18; TEMP 36.3; O2SAT 92
[2022-07-29] MEDS: Ondansetron 4 MG/2 ML VIAL IVP (12:59)
[2022-07-29] MEDS: Calcium Carbonate *TUMS* 500 MG CHEW PO (12:59)
--- NOTE | 2022-07-29 14:31 | PTTR_ITS ---
Date of service: 07/29/22 Time of Service: 09:50 PT Notes Visit Reasons: COPD Exacerbation Inpatient Physical Therapy Treatment Note [facility] Date: 07/29/2022 PRECAUTIONS: Activity as tolerated SUBJECTIVE: Laney is pleasant and agreeable to participating in PT. She reports that she is feeling a little better today. She reports that she would like to discharge to home today. OBJECTIVE: PAIN: Patient c/o low back pain with gait training BED MOBILITY/TRANSFERS: Sit-supine: I Supine-sit: I Sit-stand: I Stand-sit: I GAIT Assistive Device: FWW Weight bearing: Full Assist: S Distance: 300' Deviation: Mild SOB, short step height and length, minimal LOB x2 with self- recovery, 3L O2 via NC ASSESSMENT: Patient tolerated session without complaint of SOB. She demonstrates independence with transfers and bed mobility at this time. PLAN: Patient to discharge to home later today, per provider. Recommend follow up with PT upon discharge to home. TREATMENT CODE/TIME: 15 minutes; 21653 (09:50)
[2022-07-29 15:13] VITALS: BP 120/69; PULSE 98; RESP 22; TEMP 37.1; O2SAT 90
--- NOTE | 2022-07-29 15:38 | PDOC.CMDIS ---
- If Service Date Differs Date of service: 07/29/22 Time of Service: 15:38 LACE Index Scoring Tool - Questions: Length of Stay (in days): 7 - 13 Acuity (Admit via E.D.?): Yes Comorbidities: Chronic Pulmonary Disease E.D. Visits: 4 - Answers: Total Score: 14 Risk of Readmission: High Risk Care Management Discharge Reason for Hospitalization: COPD Discharge Plan: Laney will discharge home with New [facility] RN/PT/OT/OXYGEN EQUIPMENT AIDE, once medically stable per provider. Her son will bring her portable O2 concentrator to the hospital prior to discharge and drive her home. Laney will follow up with community providers and discharge plan of care as prescribed. CM will continue to follow. Patient/Family Education Needs: Review discharge instructions, discuss Ask Me Three. Services Needed at Discharge: DME Agency (Resume O2), Home Health Care Services
--- NOTE | 2022-07-30 10:12 | PDOC.HHF2F_ITS ---
Home Health Referral Home Health Orders Clinical synopsis of why skilled professionals are needed: frail, chronically ill. at high risk for decompensation and re-admission Medical diagnosis necessitation home health referral: copd with oxygen dependency, pneumonia Registered Nurse: Check all that apply Instruct on new or changed medication(s)/assess compliance: Ordered (antibiotics, prednisone taper) Assess for exacerbation of medical condition, instruct patient/caregivers on signs and symptoms to report for early detection: Ordered Physical Therapist: Check all that apply Increase strength & endurance for safe mobility at home: Ordered To design/establish home maintenance program: Ordered Fall reduction therapy program for patient with history of frequent falls: Ordered Home safety evaluation and teaching/gait training including stair management (if applicable): Ordered Better Breathing Program: Ordered Occupational Therapist: Evaluate and treat for patient unable to perform ADL/IADL/self-care: Ordered (routine evaluation) Upper extremity strengthening, range and motion: Ordered Lamination Inspector: Assist with community resources: Ordered Assist with termite control technician care planning: Ordered Home Bound Status Requires the aid of supportive device (check all that apply): Walker Describe why leaving home would require a considerable and taxing effort: Requires frequent rest periods and Oxygen Encounter Date and Reason: I certify that a FTF encounter for this patient was performed on July 30, 2022 and that such encounter was related to the primary reason the patient requires home health services. The encounter was conducted in the following manner: * By me as the certifying physician, SERVICE UNIT OPERATOR, PA or * By an inpatient physician, SERVICE UNIT OPERATOR or PA during an inpatient stay who communicated findings to me, Certification And Authentication I certify that I composed the above information based on my clinical judgment relating to this patient's medical condition and, if applicable, clinical findings communicated to me by the NPP or inpatient physician who performed the FTF encounter. Name of Provider that will be monitoring home health services: Ralph Rahman
== END 2022-07-29 16:41 | disposition home health service (06) | DRG 190 ==
LOC: ER 17:31 → MS 17:45
PROVIDERS: Nurse Practitioner Acute Care; Nurse Practitioner Family; Student in an Organized Health Care Education/Training Program; Admitting Provider Internal Medicine; Emergency Provider Physician Assistant; PCP Family Medicine; Visit Provider Internal Medicine
DX: J44.1 Chronic obstructive pulmonary disease with (acute) exacerbation (principal); J18.9 Pneumonia, unspecified organism; J96.21 Acute and chronic respiratory failure with hypoxia; J96.22 Acute and chronic respiratory failure with hypercapnia; E44.0 Moderate protein-calorie malnutrition; Z68.1 Body mass index [BMI] 19.9 or less, adult; N17.9 Acute kidney failure, unspecified; E87.1 Hypo-osmolality and hyponatremia; J44.0 Chronic obstructive pulmonary disease with (acute) lower respiratory infection; Z99.81 Dependence on supplemental oxygen; M79.7 Fibromyalgia; Z87.891 Personal history of nicotine dependence; R53.83 Other fatigue; R05.9 Cough, unspecified; Z66 Do not resuscitate; F32.A Depression, unspecified; K21.9 Gastro-esophageal reflux disease without esophagitis; M47.817 Spondylosis without myelopathy or radiculopathy, lumbosacral region; F41.9 Anxiety disorder, unspecified; K58.0 Irritable bowel syndrome with diarrhea; R79.1 Abnormal coagulation profile; Z91.199 Patient's noncompliance with other medical treatment and regimen due to unspecified reason; R91.1 Solitary pulmonary nodule
CPT/HCPCS: 36415; 71275; 80048; 80053; 82805; 84145; 87040; 87077; 87449; 87637; 93005; 94618; 94640; 96361; 96374; 97110; 97163; 97530; 99285; J1650; 71045; 71046; 83735; 84484; 85025; 85379; 87070; 87186; 87205; 87581; 87899; 93010; 94660; 94664; 94667; 94668; 94760; 99222; 99232; 99233; 99239; J2405; J2930; J3475; J3490; J7512; J7613; J7614; J7644

== ENCOUNTER 2022-08-05 18:16 | Outpatient (REF) | payer MEDICARE, MEDICAID, SELFPAY ==
[2022-08-05 19:21] LABS: C Diff PCR Negative (Negative)
== END 2022-08-05 18:17 | disposition home or self-care (01) ==
LOC: LBN 18:16
PROVIDERS: PCP Family Medicine; Visit Provider Family Medicine
DX: R19.7 Diarrhea, unspecified (principal)
CPT/HCPCS: 87493

== ENCOUNTER 2022-09-13 19:49 | Inpatient (IN) | payer MEDICARE, MEDICAID, SELFPAY ==
[2022-09-13] VITALS (17 sets, daily range): BP systolic 109–129; BP diastolic 46–68; PULSE 89–106; RESP 1–22; TEMP 36–38.3; O2SAT 85–95
--- NOTE | 2022-09-13 19:45 | RT.EKG_ITS ---
APPROVED REPORT Exam: Resting ECG Reason for Exam: sob Patient Location: E HR:104 bpm ECG Measurements Heart Rate 104 AXIS RI 137 P 87 QRSd 68 QRS 82 QT 322 T 81 QTc 424 Conclusion Sinus tachycardia...rate> 99 Probable left atrial enlargement...P >50mS, <-0.10mV V1 Nonspecific T abnormalities, lateral leads...T <-0.10mV, I aVL V5 V6 Physician: inverted t waves in V1-3. no stemi
--- NOTE | 2022-09-13 19:45 | DI.RAD_ITS ---
Exam(s) XR PORTABLE CHEST AP EXAM: XR PORTABLE CHEST AP CLINICAL HISTORY: sob, hypoxic. TECHNIQUE: 2D digital imaging was performed. COMPARISON: CR,XR XR PORTABLE CHEST AP from 07/24/2022 FINDINGS: Single AP portable view. Heart size is upper normal. The mediastinum is not widened. Bilateral hyperinflation again noted. COPD changes. Previously present infiltrate in the left lower lobe resolved. There are no new infiltrates nor pleu ral effusions. No pulmonary edema. IMPRESSION: COPD but no new infiltrates and there has been resolution of the previously present left lower lobe i nfiltrate which was present on chest x-ray of 07/24/2022. DATA REPOSITORY: RADIATION DOSE DELIVERED:
[2022-09-13] MEDS: methylPREDNISolone SUCC 125 MG VIAL IVP (20:01)
[2022-09-13] MEDS: Albuterol/Ipratropium 3 ML UPD VIAL UPD (20:01)
[2022-09-13 20:11] LABS: BE (Venous) 11 mmol/L (-2-3); HCO3 (Venous) 36 mmol/L (23-28); O2 Sat (Venous) 72 %; TCO2 (Venous) 34 mmol/L (24-29); pH (Venous) 7.38 (7.31-7.41); pO2 (Venous) 39 mmHg
[2022-09-13 20:12] LABS: Lactate 0.8 mmol/L (0.6-1.4)
[2022-09-13 20:14] LABS: pCO2 (Venous) 62 mmHg (41-51)
[2022-09-13 20:18] LABS: Abs Immature Grans 0.03 10^3/uL (0.0-0.06); Absolute Basophil Count 0.04 10^3/uL (0.0-0.2); Absolute Monocyte Count 0.53 10^3/uL (0.1-0.8); Absolute Neutrophil Count 4.32 10^3/uL (1.2-6.7); Basophils % 0.7; Eosinophils % 3.3; HCT 36.5 % (36.0-46.0); HGB 10.7 g/dL (11.2-15.7); Immature Grans % 0.5; MCH 26.2 pg (27.0-33.0); MCHC 29.3 % (32.0-36.0); MCV 90 fL (80-95); Monocytes % 8.8; Neutrophils % 71.7; RBC 4.08 10^6/uL (3.93-5.22); RDW 14.6 % (11.7-14.6); WBC 6.02 10^3/uL (4.4-10.8)
[2022-09-13 20:33] LABS: INR 0.9 (0.9-1.1); PTT Activated 22.6 sec (21.5-31.9); Prothrombin Time 9.2 sec (9.3-11.0)
[2022-09-13 20:35] LABS: ALT 9 U/L (14-59); AST 11 U/L (15-37); Albumin 2.9 g/dL (3.4-5.0); Alkaline Phosphatase 101 U/L (46-116); Anion Gap 3.6 mmol/L (3-11); BUN 12 mg/dL (7-18); Bilirubin, Total 0.3 mg/dL (0.2-1.0); CO2 35.4 mmol/L (21.0-32.0); CREATININE 0.9 mg/dL (0.55-1.02); Calcium 8.3 mg/dL (8.5-10.1); Chloride 103 mmol/L (98-107); Estimated GFR 65.84 (mL/min/1.73m2); Glucose 146 mg/dL (74-106); NT-proBNP 499 pg/mL (<300); Potassium 4.5 mmol/L (3.5-5.1); Sodium 142 mmol/L (136-145); Total Protein 6.9 g/dL (6.4-8.2); Troponin I < 50 ng/L (<or=60)
[2022-09-13 20:49] LABS: Diff Comment Diff Reviewed; Platelet Count 253 10^3/uL (130-400); RBC Morphology Normal
--- NOTE | 2022-09-13 20:51 | DI.VRAD_ITS ---
PROCEDURE INFORMATION: Exam: XR Chest Exam date and time: 09/13/2022 20:18 Age: 77 years old Clinical indication: Shortness of breath and other: Hypoxia; Patient HX: SOB, hypoxia TECHNIQUE: Imaging protocol: Radiologic exam of the chest. Views: 1 view. COMPARISON: CR XR PORTABLE CHEST AP 07/24/2022 11:51 FINDINGS: Lungs: Emphysema with minor chronic interstitial prominence suggesting bronchitis or other interstitial disease without new airspace consolidation. Pleural spaces: No pleural effusion. No pneumothorax. Heart/Mediastinum: Prominent main pulmonary artery segment suggesting pulmonary artery hypertension. The cardiac silhouette is upper limits of normal. Bones/joints: No acute fracture. IMPRESSION: Emphysema with minor chronic interstitial prominence suggesting bronchitis or other interstitial disease without new airspace consolidation. Dictated and Authenticated by: Viki Hilton MD. Ordering:VI De Los Santos MD
[2022-09-13 20:57] LABS: COVID-19 PCR Negative (Negative); Influenza A PCR Negative (Negative); Influenza B PCR Negative (Negative); RSV PCR Negative (Negative)
[2022-09-13 21:00] LABS: Source Nasopharynx
--- NOTE | 2022-09-13 21:02 | ED.GENADUL_ITS ---
Discharge Plan Disposition Patient Disposition: Admit to [facility] Condition: Good Discharge Details Chief Complaint: SOB Clinical Impression: COPD exacerbation, Bronchitis, Fever Primary Care Provider: Ralph Rahman ED Provider: Filiberto Boone Home Meds and New Rx's Prescriptions: No Action (DME) Oxygen Tank See Rx Instructions .ROUTE .MEDSUPPLY Qty: 1 Rx Instructions: As directed PreserVision AREDS-2 250-90-40-1 mg Capsule 2 cap PO DAILY Trelegy Ellipta 100-62.5-25 mcg blister with device 1 inh IH DAILY Qty: 28 11RF sertraline 100 mg tablet 100 mg PO DAILY Qty: 90 3RF clonazepam 1 mg tablet 1 mg PO TID PRN (Reason: anxiety) Qty: 90 2RF Rx Instructions: dose increase 02/23/22 buprenorphine [Butrans] 15 mcg/hour patch weekly 1 patch transdermal Q7D Qty: 4 2RF Combivent Respimat 20-100 mcg/actuation mist 1 puff inhalation Q6H Qty: 4 5RF sucralfate 1 gram tablet 1 g PO AC & HS Qty: 120 5RF diphenhydramine HCl 50 mg capsule 50 mg PO QHS Qty: 1 0RF prednisone 20 mg tablet 40 mg PO DAILY Qty: 10 0RF Rx Instructions: Take 2 tablets once a day for 5 days. levofloxacin 750 mg tablet 750 mg PO DAILY Qty: 7 0RF roflumilast [Daliresp] 500 mcg tablet 500 mcg PO DAILY Qty: 90 3RF acetaminophen 500 mg tablet 1,000 mg PO Q8H PRN (Reason: pain) Qty: 90 8RF gabapentin 100 mg capsule 100 mg PO TID Qty: 90 3RF diclofenac sodium 1 % gel 2 g topical QID PRN (Reason: pain) Qty: 100 1RF Rx Instructions: apply to single elbow, wrist or hand; for hand includes palm/fingers/back of hand morphine concentrate 100 mg/5 mL (20 mg/mL) solution See Rx Instructions PO Q1H PRN MDD 120 mg Qty: 30 0RF Rx Instructions: 0.25-1.0 ml orally every 1 hour, as needed; HOSPICE mirtazapine 15 mg tablet 15 mg PO HS Qty: 90 3RF omeprazole 40 mg capsule,delayed release(DR/EC) 40 mg PO DAILY Qty: 30 5RF acetylcysteine 600 mg capsule See Rx Instructions .ROUTE .COMPLEX Qty: 90 3RF Dose Instruction: TAKE ONE CAPSULE BY MOUTH EVERY DAY Rx Instructions: TAKE 1 CAPSULE BY MOUTH EVERY DAY ipratropium-albuterol 0.5 mg-3 mg(2.5 mg base)/3 mL solution for nebulization 3 ml UPD TID Qty: 180 1RF Salonpas 1 EACH adhesive patch,medicated 1 ea Topical .DAILY X 12 HOURS PRN (Reason: Pain) naloxone [Narcan] 4 mg/actuation spray,non-aerosol 1 spray KELL Q2-3M PRN (Reason: opioid overdose) Qty: 2 0RF Rx Instructions: spray 1 dose into ONE nostril; alternate nostrils w each dose until help arrives Never used cholecalciferol (vitamin D3) [Vitamin D3] 2,000 unit Tablet 3,000 unit PO DAILY doxylamine succinate 25 mg Tablet 25 mg PO QHS PRN (Reason: Insomnia) calcium carbonate 600 mg calcium (1.5 gram) Tablet,Chewable 3 - 4 tab PO TID PRN PRN (Reason: Heartburn) cranberry extract-vitamin C 250-60 mg Capsule 1 cap PO DAILY Thermotabs 287-180-15 mg Tablet 1 tab PO BID Qty: 60 0RF prednisone 10 mg Tablet See Rx Instructions .ROUTE .COMPLEX Qty: 30 0RF Rx Instructions: 30 mg orally for 3 days, then 20 mg for 3 days, then 10 mg for 3 days, then 5 mg Medical Decision Making 77-year-old female with a past medical history of severe COPD on a baseline of 2 L, chronic back pain from spine fracture, who is a DNR/DNI, patient states that for the last 24 hours she has had shortness of breath, and a fever. She denies any chest pain, vomiting, or diarrhea. She denies any numbness tingling or weakness. She states that her oxygen got down to the lowest of 50% at home. EMS was called, she was increased to 2-1/2 L at that time, when EMS arrived her O2 had increased to 75%. They gave her nebulizer on 10 L and brought her to the ER for further assessment. Patient denies any other complaints at this time. She states she has been taking her medications as directed. Exam demonstrates slightly diminished breath sounds throughout. Saturating in the 80s on 3 L. Concern for COPD exacerbation, CO2 retention, she does have a fever here, concern for pneumonia. Will evaluate for etiologies, give another breathing treatment and Solu-Medrol, monitor closely and reassess. She has no c hest pain, or pleuritic chest pain. Doubt PE. EKG shows no evidence of STEMI. 9:34 PM Chest x-ray negative for focal pneumonia, however there is some suggestion of mild bronchitis without new consolidation. Troponin normal. EKG stable. COVID flu and RSV negative. VBG is surprisingly decent for her with a pH of 7.38, and PCO2 of 62. Bicarb is obviously elevated at 36. I suspect there is a component of acute on chronic COPD exacerbation. She is still using an increased oxygen demand compared to her normal. We have her 91% O2 saturation on 4 L currently. We will give azithromycin and ceftriaxone for treatments. We will plan to admit for continued management. Discussed the case with the hospitalist Dr. Stephan adams. He agrees with the assessment and plan. I have extensively reviewed the treatment plan and discharge instructions with the patient and their family. I have addressed all patient concerns at this time. The patient and family was made aware of what symptoms to monitor for that would warrant a return to the emergency department. Discussed the plan with the patient and family, they demonstrate verbal understanding and agreement with our assessment and plan at this time. The documentation in this chart was dictated using [employer] dictation software. Please excuse any dictation errors. FINDINGS: Lungs: Emphysema with minor chronic interstitial prominence suggesting bronchitis or other interstitial disease without new airspace consolidation. Pleural spaces: No pleural effusion. No pneumothorax. Heart/Mediastinum: Prominent main pulmonary artery segment suggesting pulmonary artery hypertension. The cardiac silhouette is upper limits of normal. Bones/joints: No acute fracture. IMPRESSION: Emphysema with minor chronic interstitial prominence suggesting bronchitis or other interstitial disease without new airspace consolidation. Thank you for allowing us to participate in the care of your patient. Dictated and Authenticated by: Viki Hilton MD 09/13/2022 8:50 PM Eastern Time ([place] & [place]) HPI General Date/Time Provider Initiated Documentation: 09/13/22 19:52 . HPI Narrative: 77-year-old female with a past medical history of severe COPD on a baseline of 2 L, chronic back pain from spine fracture, who is a DNR/DNI, car[place] ent states that for the last 24 hours she has had shortness of breath, and a fever. She denies any chest pain, vomiting, or diarrhea. She denies any numbness tingling or weakness. She states that her oxygen got down to the lowest of 50% at home. EMS was called, she was increased to 2-1/2 L at that time, when EMS arrived her O2 had increased to 75%. They gave her nebulizer on 10 L and brought her to the ER for further assessment. Patient denies any other complaints at this time. She states she has been taking her medications as directed. Related Data Home Medications Medication Instructions Recorded Confirmed camphor-methyl salicylate-menthol 1 ea topical .DAILY X 12 HOURS PRN 11/10/16 09/03/22 topical patch (Salonpas topical Pain patch) Oxygen #1 ea 12/12/18 09/03/22 naloxone 4 mg/actuation nasal 1 spray intranasal Q2-3M PRN 04/18/19 09/03/22 spray (Narcan) opioid overdose #2 ea cholecalciferol (vitamin D3) 50 3,000 unit PO DAILY 05/10/19 09/03/22 mcg (2,000 unit) tablet (Vitamin D3) roflumilast 500 mcg tablet 500 mcg PO DAILY #90 tab-caps 06/02/21 09/03/22 (Daliresp) vit C 250 mg-vit E 90 mg-zinc 40 2 cap PO DAILY 08/21/21 09/03/22 mg-copper 1 qa-rhibgn-mfeani capsule (PreserVision AREDS-2) acetaminophen 500 mg tablet 1,000 mg PO Q8H PRN pain #90 tabs 09/15/21 09/03/22 sodium chloride-potassium chloride 1 tab PO BID #60 tabs 01/31/22 09/03/22 287 mg-180 mg-15 mg tablet (Thermotabs) sucralfate 1 gram tablet 1 g PO AC & HS #120 tabs 02/23/22 09/03/22 diphenhydramine HCl 50 mg capsule 50 mg PO QHS #1 cap 03/05/22 09/03/22 gabapentin 100 mg capsule 100 mg PO TID #90 caps 04/06/22 09/03/22 calcium carbonate 600 mg calcium 3 - 4 tab PO TID PRN PRN Heartburn 04/11/22 09/03/22 (1.5 gram) chewable tablet cranberry extract-vitamin C 250 1 cap PO DAILY 04/11/22 09/03/22 mg-60 mg capsule doxylamine succinate 25 mg tablet 25 mg PO QHS PRN Insomnia 04/11/22 09/03/22 diclofenac sodium 1 % topical gel 2 g topical QID PRN pain #100 grams 04/27/22 09/03/22 morphine concentrate 100 mg/5 mL See Rx Instructions PO Q1H PRN #30 05/14/22 09/03/22 (20 mg/mL) oral solution mL mirtazapine 15 mg tablet 15 mg PO HS #90 tabs 05/24/22 09/03/22 acetylcysteine 600 mg capsule See Rx Instructions .Route 06/28/22 09/03/22 .COMPLEX #90 caps omeprazole 40 mg capsule,delayed 40 mg PO DAILY #30 caps 06/28/22 09/03/22 release prednisone 10 mg tablet See Rx Instructions .Route 07/29/22 09/03/22 .COMPLEX #30 tabs buprenorphine 15 mcg/hour weekly 1 patch transdermal Q7D #4 ea 08/04/22 09/03/22 transdermal patch (Butrans) clonazepam 1 mg tablet 1 mg PO TID PRN anxiety #90 tabs 08/04/22 09/03/22 fluticasone fur. 100 mcg-umeclid 1 inh inhalation DAILY #28 ea 08/04/22 09/03/22 62.5 mcg-vilant 25 mcg inhalat.powder (Trelegy Ellipta) ipratropium 20 mcg-albuterol 100 1 puff inhalation Q6H #4 grams 08/04/22 09/03/22 mcg/actuation mist for inhalation (Combivent Respimat) sertraline 100 mg tablet 100 mg PO DAILY #90 tab-caps 08/04/22 09/03/22 ipratropium 0.5 mg-albuterol 3 mg 3 ml UPD TID #180 mL 08/24/22 09/03/22 (2.5 mg base)/3 mL nebulization soln levofloxacin 750 mg tablet 750 mg PO DAILY pneumonia #7 tabs 08/31/22 09/03/22 prednisone 20 mg tablet 40 mg PO DAILY #10 tabs 09/01/22 09/03/22 Previous Rx's Medication Instructions Recorded naloxone 4 mg/actuation nasal 1 spray intranasal Q2-3M PRN 04/18/19 spray (Narcan) opioid overdose #2 ea roflumilast 500 mcg tablet 500 mcg PO DAILY #90 tab-caps 06/02/21 (Daliresp) acetaminophen 500 mg tablet 1,000 mg PO Q8H PRN pain #90 tabs 09/15/21 sodium chloride-potassium chloride 1 tab PO BID #60 tabs 01/31/22 287 mg-180 mg-15 mg tablet (Thermotabs) sucralfate 1 gram tablet 1 g PO AC & HS #120 tabs 02/23/22 diphenhydramine HCl 50 mg capsule 50 mg PO QHS #1 cap 03/05/22 gabapentin 100 mg capsule 100 mg PO TID #90 caps 04/06/22 diclofenac sodium 1 % topical gel 2 g topical QID PRN pain #100 grams 04/27/22 morphine concentrate 100 mg/5 mL See Rx Instructions PO Q1H PRN #30 05/14/22 (20 mg/mL) oral solution mL mirtazapine 15 mg tablet 15 mg PO HS #90 tabs 05/24/22 acetylcysteine 600 mg capsule See Rx Instructions .Route 06/28/22 .COMPLEX #90 caps omeprazole 40 mg capsule,delayed 40 mg PO DAILY #30 caps 06/28/22 release prednisone 10 mg tablet See Rx Instructions .Route 07/29/22 .COMPLEX #30 tabs buprenorphine 15 mcg/hour weekly 1 patch transdermal Q7D #4 ea 08/04/22 transdermal patch (Butrans) clonazepam 1 mg tablet 1 mg PO TID PRN anxiety #90 tabs 08/04/22 fluticasone fur. 100 mcg-umeclid 1 inh inhalation DAILY #28 ea 08/04/22 62.5 mcg-vilant 25 mcg inhalat.powder (Trelegy Ellipta) ipratropium 20 mcg-albuterol 100 1 puff inhalation Q6H #4 grams 08/04/22 mcg/actuation mist for inhalation (Combivent Respimat) sertraline 100 mg tablet 100 mg PO DAILY #90 tab-caps 08/04/22 ipratropium 0.5 mg-albuterol 3 mg 3 ml UPD TID #180 mL 08/24/22 (2.5 mg base)/3 mL nebulization soln levofloxacin 750 mg tablet 750 mg PO DAILY pneumonia #7 tabs 08/31/22 prednisone 20 mg tablet 40 mg PO DAILY #10 tabs 09/01/22 Allergies Allergy/AdvReac Type Severity Reaction Status Date / Time No Known Allergies Allergy Verified 09/01/22 11:06 General Stated Complaint: SOB MCKAYLA: 3 Review of Systems All systems reviewed & are unremarkable except as noted in HPI and below PFSH All Active Problems (Updated 09/13/22 @ 21:36 by Filiberto Boone DO) COPD exacerbation (Acute) Bronchitis (Acute) Fever (Acute) Advanced care planning/counseling discussion (Acute) Pneumonia (Acute) Diarrhea (Acute) History of Clostridioides difficile colitis (Acute) Bilateral pneumonia (Acute) LLL pneumonia (Acute ~03/30/18) Acute exacerbation of chronic obstructive pulmonary disease (Acute) Dependence on supplemental oxygen (Acute) Right shoulder pain (Acute) Abnormal weight loss (Acute) Chronic respiratory failure with hypercapnia (Acute) Palliative care patient (Acute) Depression (Chronic) Protein calorie malnutrition (Acute) Chronic pain (Chronic) TERESA (acute kidney injury) (Acute) Acute on chronic respiratory failure with hypoxia and hypercapnia (Acute) Hyponatremia (Chronic) Epigastric pain (Acute) COPD with acute exacerbation (Acute) Odynophagia (Acute) GERD (gastroesophageal reflux disease) (Chronic) Chronic obstructive pulmonary disease (Chronic) Lumbosacral spondylosis without myelopathy (Acute) Fibromyalgia (Acute) Fall (Acute) Low back pain (Acute) Discharge planning issues (Acute) T12 compression fracture (Acute) Hemoptysis (Acute) History of cataract removal with insertion of prosthetic lens (Acute 06/05/15) Status post appendectomy (Acute) Status post laminectomy (Acute) Pain from implanted hardware (Chronic 10/30/18) S/P Hardware removal Chronic anxiety (Chronic 06/22/13) Chronic emphysema syndrome (Chronic) Chronic pain in right shoulder (Chronic 11/20/13) Moderate protein malnutrition (Chronic 11/20/13) Neck pain (Acute) Irritable bowel syndrome with diarrhea (Chronic) History of tobacco abuse (Chronic) Anxiety (Chronic) Medical History Acute exacerbation of chronic obstructive pulmonary disease (COPD) C. difficile colitis Cervical neck pain with evidence of disc disease (06/22/13) Contusion of right knee, initial encounter DNI (do not intubate) DNR (do not resuscitate) Ongoing leg pain continue nSaid prn tramadol see surgeon next week consider topical analgesic on surrounding skin Pneumothorax, spontaneous, tension (04/11/10) POLST (Physician Orders for Life-Sustaining Treatment) Surgical History Appendectomy CHEST TUBE Extraction of cataract 06/05/15; LEFT EYE; DR. ARAUZ H/O section Hx of hysterectomy LAMINECTOMY CERVICAL SPINE Right femoral fracture (05/09/17) ORIF DOS: 05/10/17 Dr. Bob Family History Mother , at age 89, cardiac problems No problems noted. Father , at 81 Cancer Throat cancer Brother , at 71 Colon cancer Sister Diabetes DM2 Sister Diabetes DM2 Son No problems noted. Social History Smoking/Tobacco Use Status: Former Tobacco Use Quit Date: 09/16/13 Pack-years: 50 Smoking risk assessment performed?: Yes Alcohol Intake: former Year quit: 1979 Drug use: Never Substance use type: does not use Household members: none Housing: apartment Do you feel safe at home: Yes Do you feel safe in your relationship?: No Additional Social history: 16 years ago. Originally from [place], moved here to be near son and grand children. [place] House[place]. Enjoys contact with 4 grandchildren throughout the day (they are homeschooled and her home much of the time). Bedbound approximately 22 hours a day. On disability due to chronic back pain. 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 Approximate 75 pack year history of tobacco. No alcohol or illicit drug use endorsed. Exam Narrative Exam Narrative: 1.Const: Well-nourished, Well-developed, appearing stated age 2.Eyes: PERRL, no conjunctival injection, and symmetrical lids. 3.ENT: Atraumatic external nose and ears. Moist MM. Neck: Symmetric, trachea midline, No thyromegaly. 4.CVS: +S1/S2, No murmurs or gallops. Peripheral pulses 2+ and equal in all extremities. Brisk capillary refill in all extremities. 5.RESP: Slightly labored respiratory effort. Minimal scattered wheezes. Minimal rhonchi. No crackles. 6.GI: Soft, Nontender/Nondistended, No hepatosplenomegaly. No guarding or rebound. 7.MSK: Normocephalic/Atraumatic, Extremities w/o deformity or ttp No cyanosis or clubbing, Normal movement of all extremities 8.Skin: Warm, Dry. No rashes or lesions. 9.Neuro: peoplesoft hr developer II-XII grossly intact. Sensation grossly intact, no focal neurologic deficits. 10.Psych: (AAO) x3. Appropriate mood and affect Course Vital Signs Vital signs: Vital Signs Temperature 38.3 C H 09/13/22 19:49 Pulse 105 H 09/13/22 19:49 Respiratory Rate 17 09/13/22 19:49 Blood Pressure 109/59 L 09/13/22 19:49 Pulse Oximetry 92 09/13/22 19:49 Temperature 38.3 C H 09/13/22 19:49 Temperature Source Oral 09/13/22 19:49 Pulse 105 H 09/13/22 19:49 Respiratory Rate 17 09/13/22 19:53 Respiratory Effort Short of Breath 09/13/22 19:53 Respiratory Depth Normal 09/13/22 19:53 Respiratory Pattern Normal 09/13/22 19:53 Blood Pressure 109/59 L 09/13/22 19:49 Pulse Oximetry 91 L 09/13/22 20:01 Oxygen Delivery Method Nasal Cannula 09/13/22 20:01 Oxygen Flow Rate 4 09/13/22 20:01 Pain Level 0 09/13/22 19:49 Lab/Test Results Lab/Test Results: 09/13/22 20:25 Blood Blood Culture - Pending 09/13/22 20:03 Blood Blood Culture - Pending Laboratory Tests Range/Units 09/13/22 09/13/22 09/13/22 20:03 20:03 20:03 WBC (4.4-10.8) 10^3/uL 6.02 RBC (3.93-5.22) 10^6/uL 4.08 Hgb (11.2-15.7) g/dL 10.7 L Hct (36.0-46.0) % 36.5 MCV (80-95) fL 90 MCH (27.0-33.0) pg 26.2 L MCHC (32.0-36.0) % 29.3 L RDW (11.7-14.6) % 14.6 Plt Count (130-400) 10^3/uL 253 MPV (8.0-11.0) fL Immature Gran % 0.5 Neutrophils % 71.7 Lymphocytes % 15.0 Monocytes % 8.8 Eosinophils % 3.3 Basophils % 0.7 Nucleated RBC % (0.0-0.3) % 0.0 Absolute Neutrophils (1.2-6.7) 10^3/uL 4.32 Absolute Lymphocytes (1.2-3.4) 10^3/uL 0.90 L Absolute Monocytes (0.1-0.8) 10^3/uL 0.53 Absolute Eosinophils (0.0-0.7) 10^3/uL 0.20 Absolute Basophils (0.0-0.2) 10^3/uL 0.04 RBC Morphology Normal PT (9.3-11.0) sec INR (0.9-1.1) APTT (21.5-31.9) sec VBG pH (7.31-7.41) 7.38 VBG pCO2 (41-51) mmHg 62 H* VBG pO2 mmHg 39 VBG HCO3 (23-28) mmol/L 36 H VBG Total CO2 (24-29) mmol/L 34 H VBG O2 Saturation % 72 VBG Base Excess (-2-3) mmol/L 11 H VBG Lactate (0.6-1.4) mmol/L Sodium (136-145) mmol/L 142 Potassium (3.5-5.1) mmol/L 4.5 Chloride (98-107) mmol/L 103 Carbon Dioxide (21.0-32.0) mmol/L 35.4 H Anion Gap (3-11) mmol/L 3.6 BUN (7-18) mg/dL 12 Creatinine (0.55-1.02) mg/dL 0.9 Est GFR (CKD-EPI 2020) (mL/min/1.73m2) 65.84 Glucose (74-106) mg/dL 146 H Calcium (8.5-10.1) mg/dL 8.3 L Total Bilirubin (0.2-1.0) mg/dL 0.3 AST (15-37) U/L 11 L ALT (14-59) U/L 9 L Alkaline Phosphatase (46-116) U/L 101 Troponin I (<or=60) ng/L < 50 NT-Pro-B Natriuret Pep (<300) pg/mL 499 H Total Protein (6.4-8.2) g/dL 6.9 Albumin (3.4-5.0) g/dL 2.9 L COVID-19 Source SARS-CoV-2 (PCR) (Negative) Influenza Type A (PCR) (Negative) Influenza Type B (PCR) (Negative) RSV (PCR) (Negative) Range/Units 09/13/22 09/13/22 09/13/22 20:03 20:03 20:06 WBC (4.4-10.8) 10^3/uL RBC (3.93-5.22) 10^6/uL Hgb (11.2-15.7) g/dL Hct (36.0-46.0) % MCV (80-95) fL MCH (27.0-33.0) pg MCHC (32.0-36.0) % RDW (11.7-14.6) % Plt Count (130-400) 10^3/uL MPV (8.0-11.0) fL Immature Gran % Neutrophils % Lymphocytes % Monocytes % Eosinophils % Basophils % Nucleated RBC % (0.0-0.3) % Absolute Neutrophils (1.2-6.7) 10^3/uL Absolute Lymphocytes (1.2-3.4) 10^3/uL Absolute Monocytes (0.1-0.8) 10^3/uL Absolute Eosinophils (0.0-0.7) 10^3/uL Absolute Basophils (0.0-0.2) 10^3/uL RBC Morphology PT (9.3-11.0) sec 9.2 L INR (0.9-1.1) 0.9 APTT (21.5-31.9) sec 22.6 VBG pH (7.31-7.41) VBG pCO2 (41-51) mmHg VBG pO2 mmHg VBG HCO3 (23-28) mmol/L VBG Total CO2 (24-29) mmol/L VBG O2 Saturation % VBG Base Excess (-2-3) mmol/L VBG Lactate (0.6-1.4) mmol/L 0.8 Sodium (136-145) mmol/L Potassium (3.5-5.1) mmol/L Chloride (98-107) mmol/L Carbon Dioxide (21.0-32.0) mmol/L Anion Gap (3-11) mmol/L BUN (7-18) mg/dL Creatinine (0.55-1.02) mg/dL Est GFR (CKD-EPI 2020) (mL/min/1.73m2) Glucose (74-106) mg/dL Calcium (8.5-10.1) mg/dL Total Bilirubin (0.2-1.0) mg/dL AST (15-37) U/L ALT (14-59) U/L Alkaline Phosphatase (46-116) U/L Troponin I (<or=60) ng/L NT-Pro-B Natriuret Pep (<300) pg/mL Total Protein (6.4-8.2) g/dL Albumin (3.4-5.0) g/dL COVID-19 Source Nasopharynx SARS-CoV-2 (PCR) (Negative) Negative Influenza Type A (PCR) (Negative) Negative Influenza Type B (PCR) (Negative) Negative RSV (PCR) (Negative) Negative
[2022-09-13] MEDS: cefTRIAXone 2 GM/50 ML BAG IVPB (21:26)
[2022-09-13] MEDS: AZITHROMYCIN 500 MG in Normal Saline 250 ML 250 MG IVPB (21:50)
--- NOTE | 2022-09-13 22:02 | HPE_ITS ---
Date of service: 09/13/22 Time of Service: 22:06 Assessment and Plan Assessment and plan (1) Acute exacerbation of chronic obstructive pulmonary disease: Status: Acute Assessment and plan: She seems improved now compared to earlier in this emergency visit. She has received 2 nebulized treatments and a dose of intravenous steroids. She will be continued on intravenous steroids and nebulized treatments. BiPAP will be used at night. She did receive intravenous ceftriaxone and azithromycin. Proc alcitonin test is pending. Sputum culture has been requested. I do not see any infiltrates on chest x-ray and radiology agrees with this. She has a minor elevation of temperature at this time and urinalysis is still pending. (2) Dependence on supplemental oxygen: Status: Acute History of Present Illness History of Present Illness Chief Complaint: Low oxygen saturations and fever. Narrative: This 74-year-old female has chronic obstructive lung disease. She has been hospitalized for this frequently. She does not smoke tobacco any longer. She states that yesterday she was not feeling very well and her oxygen was satur ation struggled to get up to 80%. She normally uses her oxygen at 2 L/min but increase it to 2.5 L/min. She states that when she went to the bathroom yesterday her oxygen level dropped to 55% saturation and she struggled to get her back into the 70s. She said her fever yesterday ranged from 100 degrees to 103 degrees. She has a cough some but not much. She does use her BiPAP machine at home at night. She did a COVID test about 4 days ago 2 days ago and both test were negative. She states she has been immunized for COVID and has not been exposed anyone has been sick recently. Before yesterday and for about 5 days she has had no fever but said she had fevers daily for about 9 days prior to that. She lives by herself but her son, [id number] and 4 grandchildren live below her in the building. She says they have not been ill. She has not been traveling. She did have C. difficile infection a few months ago and does have chronic diarrhea but says her diarrhea has improved since being treated for the C. difficile. She states she does have a DNR/DNI order and wants to keep t hat in place. She has chronic shoulder pain but that has not changed recently. He says his last drink of alcohol she had was about 43 years ago. She is having no urinary symptoms. Review of Systems Constitutional Constitutional: Reports chills, Denies fatigue, Reports fever(s), Denies lethargy and Denies weakness Cardiovascular Cardiovascular: Denies chest pain at rest, Denies chest pain with activity, Reports diaphoresis, Denies rapid heart rate, Denies pedal edema, Denies irregular heart rhythm, Reports dyspnea and Reports dyspnea on exertion Respiratory Respiratory: Reports cough, Denies excessive phlegm production, Reports dyspnea and Reports dyspnea on exertion Gastrointestinal Gastrointestinal: Denies abdominal pain, Denies hematochezia, Denies change in bowel habits, Denies constipation, Reports diarrhea, Denies nausea and Denies vomiting Genitourinary Genitourinary: Denies hematuria, Denies urinary frequency and Denies difficulty voiding Neurologic Neurologic: Denies weakness Endocrine Endocrine: Denies fatigue PFSH All Active Problems (Updated 09/13/22 @ 21:36 by Filiberto Boone DO) COPD exacerbation (Acute) Bronchitis (Acute) Fever (Acute) Advanced care planning/counseling discussion (Acute) Pneumonia (Acute) Diarrhea (Acute) History of Clostridioides difficile colitis (Acute) Bilateral pneumonia (Acute) LLL pneumonia (Acute ~03/30/18) Acute exacerbation of chronic obstructive pulmonary disease (Acute) Dependence on supplemental oxygen (Acute) Right shoulder pain (Acute) Abnormal weight loss (Acute) Chronic respiratory failure with hypercapnia (Acute) Palliative care patient (Acute) Depression (Chronic) Protein calorie malnutrition (Acute) Chronic pain (Chronic) TERESA (acute kidney injury) (Acute) Acute on chronic respiratory failure with hypoxia and hypercapnia (Acute) Hyponatremia (Chronic) Epigastric pain (Acute) COPD with acute exacerbation (Acute) Odynophagia (Acute) GERD (gastroesophageal reflux disease) (Chronic) Chronic obstructive pulmonary disease (Chronic) Lumbosacral spondylosis without myelopathy (Acute) Fibromyalgia (Acute) Fall (Acute) Low back pain (Acute) Discharge planning issues (Acute) T12 compression fracture (Acute) Hemoptysis (Acute) History of cataract removal with insertion of prosthetic lens (Acute 06/05/15) Status post appendectomy (Acute) Status post laminectomy (Acute) Pain from implanted hardware (Chronic 10/30/18) S/P Hardware removal Chronic anxiety (Chronic 06/22/13) Chronic emphysema syndrome (Chronic) Chronic pain in right shoulder (Chronic 11/20/13) Moderate protein malnutrition (Chronic 11/20/13) Neck pain (Acute) Irritable bowel syndrome with diarrhea (Chronic) History of tobacco abuse (Chronic) Anxiety (Chronic) Medical History Acute exacerbation of chronic obstructive pulmonary disease (COPD) C. difficile colitis Cervical neck pain with evidence of disc disease (06/22/13) Contusion of right knee, initial encounter DNI (do not intubate) DNR (do not resuscitate) Ongoing leg pain continue nSaid prn tramadol see surgeon next week consider topical analgesic on surrounding skin Pneumothorax, spontaneous, tension (04/11/10) POLST (Physician Orders for Life-Sustaining Treatment) Surgical History Appendectomy CHEST TUBE Extraction of cataract 06/05/15; LEFT EYE; DR. ARAUZ H/O section Hx of hysterectomy LAMINECTOMY CERVICAL SPINE Right femoral fracture (05/09/17) ORIF DOS: 05/10/17 Dr. Bob Family History Mother , at age 89, cardiac problems No problems noted. Father , at 81 Cancer Throat cancer Brother , at 71 Colon cancer Sister Diabetes DM2 Sister Diabetes DM2 Son No problems noted. Social History Smoking/Tobacco Use Status: Former Tobacco Use Quit Date: 09/16/13 Pack-years: 50 Smoking risk assessment performed?: Yes Alcohol Intake: former Year quit: 1979 Drug use: Never Substance use type: does not use Household members: none Housing: apartment Do you feel safe at home: Yes Do you feel safe in your relationship?: No Additional Social history: 16 years ago. Originally from [place], moved here to be near son and grand children. [place]. Enjoys contact with 4 grandchildren throughout the day (they are homeschooled and her home much of the time). Bedbound approximately 22 hours a day. On disability due to chronic back pain. 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 Approximate 75 pack year history of tobacco. No alcohol or illicit drug use endorsed. Meds Allergies and Home Medications Allergies Allergy/AdvReac Type Severity Reaction Status Date / Time No Known Allergies Allergy Verified 09/01/22 11:06 Home Medications Medication Instructions Recorded Confirmed Type camphor-methyl salicylate-menthol 1 ea topical .DAILY X 12 HOURS PRN 11/10/16 09/13/22 History topical patch (Salonpas topical Pain patch) Oxygen #1 ea 12/12/18 09/13/22 History naloxone 4 mg/actuation nasal 1 spray intranasal Q2-3M PRN 04/18/19 09/13/22 Rx spray (Narcan) opioid overdose #2 ea cholecalciferol (vitamin D3) 50 3,000 unit PO DAILY 05/10/19 09/13/22 History mcg (2,000 unit) tablet (Vitamin D3) roflumilast 500 mcg tablet 500 mcg PO DAILY #90 tab-caps 06/02/21 09/13/22 Rx (Daliresp) vit C 250 mg-vit E 90 mg-zinc 40 2 cap PO DAILY 08/21/21 09/13/22 History mg-copper 1 he-ougrxl-siunop capsule (PreserVision AREDS-2) acetaminophen 500 mg tablet 1,000 mg PO Q8H PRN pain #90 tabs 09/15/21 09/13/22 Rx sodium chloride-potassium chloride 1 tab PO BID #60 tabs 01/31/22 09/13/22 Rx 287 mg-180 mg-15 mg tablet (Thermotabs) sucralfate 1 gram tablet 1 g PO AC & HS #120 tabs 02/23/22 09/13/22 Rx diphenhydramine HCl 50 mg capsule 50 mg PO QHS #1 cap 03/05/22 09/13/22 Rx gabapentin 100 mg capsule 100 mg PO TID #90 caps 04/06/22 09/13/22 Rx calcium carbonate 600 mg calcium 3 - 4 tab PO TID PRN PRN Heartburn 04/11/22 09/13/22 History (1.5 gram) chewable tablet cranberry extract-vitamin C 250 1 cap PO DAILY 04/11/22 09/13/22 History mg-60 mg capsule doxylamine succinate 25 mg tablet 25 mg PO QHS PRN Insomnia 04/11/22 09/13/22 History diclofenac sodium 1 % topical gel 2 g topical QID PRN pain #100 grams 04/27/22 09/13/22 Rx morphine concentrate 100 mg/5 mL See Rx Instructions PO Q1H PRN #30 05/14/22 09/13/22 Rx (20 mg/mL) oral solution mL mirtazapine 15 mg tablet 15 mg PO HS #90 tabs 05/24/22 09/13/22 Rx acetylcysteine 600 mg capsule See Rx Instructions .Route 06/28/22 09/13/22 Rx .COMPLEX #90 caps omeprazole 40 mg capsule,delayed 40 mg PO DAILY #30 caps 06/28/22 09/13/22 Rx release prednisone 10 mg tablet See Rx Instructions .Route 07/29/22 09/13/22 Rx .COMPLEX #30 tabs buprenorphine 15 mcg/hour weekly 1 patch transdermal Q7D #4 ea 08/04/22 09/13/22 Rx transdermal patch (Butrans) clonazepam 1 mg tablet 1 mg PO TID PRN anxiety #90 tabs 08/04/22 09/13/22 Rx fluticasone fur. 100 mcg-umeclid 1 inh inhalation DAILY #28 ea 08/04/22 09/13/22 Rx 62.5 mcg-vilant 25 mcg inhalat.powder (Trelegy Ellipta) ipratropium 20 mcg-albuterol 100 1 puff inhalation Q6H #4 grams 08/04/22 09/13/22 Rx mcg/actuation mist for inhalation (Combivent Respimat) sertraline 100 mg tablet 100 mg PO DAILY #90 tab-caps 08/04/22 09/13/22 Rx ipratropium 0.5 mg-albuterol 3 mg 3 ml UPD TID #180 mL 08/24/22 09/13/22 Rx (2.5 mg base)/3 mL nebulization soln levofloxacin 750 mg tablet 750 mg PO DAILY pneumonia #7 tabs 08/31/22 09/13/22 Rx prednisone 20 mg tablet 40 mg PO DAILY #10 tabs 09/01/22 09/13/22 Rx Exam Const General: cooperative, comfortable, no acute distress, not lethargic and well hydrated Nutritional Appearance: thin Orientation: alert and awake HENMT Mouth: moist mucous membranes Neck Neck: normal visual inspection, no lymphadenopathy, trachea midline and no JVD Resp Effort & Inspection: normal respiratory effort, able to speak in complete sentences, no pursed lip breathing and no use of accessory muscles Auscultation: no rales, rhonchi and no wheezes Cardio Rate: regular rate Rhythm: regular rhythm Heart Sounds: S1 normal, S2 normal, no gallops and no murmurs GI Palpation: soft, no hepatosplenomegaly and nontender Extrem General: normal to inspection and no clubbing, cyanosis or edema Results Labs 09/13/22 20:03 09/13/22 20:03 Labs: Laboratory Results - last 24 hr 09/13/22 09/13/22 09/13/22 20:03 20:03 20:03 WBC 6.02 RBC 4.08 Hgb 10.7 L Hct 36.5 MCV 90 MCH 26.2 L MCHC 29.3 L RDW 14.6 Plt Count 253 MPV Immature Gran % 0.5 Neutrophils % 71.7 Lymphocytes % 15.0 Monocytes % 8.8 Eosinophils % 3.3 Basophils % 0.7 Nucleated RBC % 0.0 Absolute Neutrophils 4.32 Absolute Lymphocytes 0.90 L Absolute Monocytes 0.53 Absolute Eosinophils 0.20 Absolute Basophils 0.04 RBC Morphology Normal PT INR APTT VBG pH 7.38 VBG pCO2 62 H* VBG pO2 39 VBG HCO3 36 H VBG Total CO2 34 H VBG O2 Saturation 72 VBG Base Excess 11 H VBG Lactate Sodium 142 Potassium 4.5 Chloride 103 Carbon Dioxide 35.4 H Anion Gap 3.6 BUN 12 Creatinine 0.9 Est GFR (CKD-EPI 2020) 65.84 Glucose 146 H Calcium 8.3 L Total Bilirubin 0.3 AST 11 L ALT 9 L Alkaline Phosphatase 101 Troponin I < 50 NT-Pro-B Natriuret Pep 499 H Total Protein 6.9 Albumin 2.9 L COVID-19 Source SARS-CoV-2 (PCR) Influenza Type A (PCR) Influenza Type B (PCR) RSV (PCR) 09/13/22 09/13/22 09/13/22 20:03 20:03 20:06 WBC RBC Hgb Hct MCV MCH MCHC RDW Plt Count MPV Immature Gran % Neutrophils % Lymphocytes % Monocytes % Eosinophils % Basophils % Nucleated RBC % Absolute Neutrophils Absolute Lymphocytes Absolute Monocytes Absolute Eosinophils Absolute Basophils RBC Morphology PT 9.2 L INR 0.9 APTT 22.6 VBG pH VBG pCO2 VBG pO2 VBG HCO3 VBG Total CO2 VBG O2 Saturation VBG Base Excess VBG Lactate 0.8 Sodium Potassium Chloride Carbon Dioxide Anion Gap BUN Creatinine Est GFR (CKD-EPI 2020) Glucose Calcium Total Bilirubin AST ALT Alkaline Phosphatase Troponin I NT-Pro-B Natriuret Pep Total Protein Albumin COVID-19 Source Nasopharynx SARS-CoV-2 (PCR) Negative Influenza Type A (PCR) Negative Influenza Type B (PCR) Negative RSV (PCR) Negative Last Vital Signs Temp 38.3 C H 09/13/22 19:49 Pulse 103 H 09/13/22 20:46 Resp 16 09/13/22 21:30 BP 109/57 L 09/13/22 20:46 Pulse Ox 91 L 09/13/22 21:30 Time Spent Time spent with Patient: 40-54 minutes Time was spent: preparing to see the patient(eg.review tests), ordering medications,tests, procedures, referring, communicating with other health wild animal caretaker and indepentently interpreting results
[2022-09-13 22:58] LABS: Bilirubin Negative (Negative); Blood Trace-intact (Negative); Clarity Clear (Clear); Glucose Negative (Negative); Ketones Negative (Negative); Leukocyte Esterase Negative (Negative); Nitrite Negative (Negative); Specific Gravity 1.015 (1.005-1.025); Urobilinogen 0.2 mg/dL (Up to 0.2); pH 6.5 (5-8)
[2022-09-13 23:01] LABS: Procalcitonin < 0.1 ng/mL
[2022-09-13 23:06] LABS: Bacteria Rare HPF (Negative); C & S Indicated? No; Crystals Negative HPF (Negative); Epithelial Cells Few HPF (Negative); Mucus Negative (Negative); WBC 0-2 HPF (0-5)
[2022-09-13 23:12] LABS: Troponin I < 50 ng/L (<or=60)
[2022-09-13] MEDS: diphenhydrAMINE 25 MG CAP 50 MG PO (23:33)
[2022-09-13] MEDS: Mirtazapine 15 MG TAB PO (23:34)
[2022-09-13] MEDS: Sucralfate 1 GM TAB PO (23:34)
[2022-09-13] MEDS: clonazePAM 1 MG TAB PO (23:39)
[2022-09-14] VITALS (10 sets, daily range): BP systolic 101–127; BP diastolic 57–67; PULSE 84–101; RESP 1–20; TEMP 36.5–37; O2SAT 91–94
[2022-09-14] MEDS: methylPREDNISolone SUCC 125 MG VIAL 80 MG IVP ×3 (05:57→21:00)
[2022-09-14] MEDS: Normal Saline Flush 10 ML SYR IVP ×3 (06:00→20:57)
[2022-09-14] MEDS: Albuterol/Ipratropium 3 ML UPD VIAL UPD ×2 (07:42→13:20)
[2022-09-14] MEDS: Sucralfate 1 GM TAB PO ×4 (08:24→21:02)
[2022-09-14] MEDS: Acetylcysteine 600 MG CAP PO (08:24)
[2022-09-14] MEDS: Roflumilast 500 MCG TAB PO (08:24)
[2022-09-14] MEDS: Sertraline 100 MG TAB PO (08:24)
[2022-09-14] MEDS: clonazePAM 1 MG TAB PO ×3 (08:25→21:02)
[2022-09-14] MEDS: Gabapentin 100 MG CAP PO ×3 (08:25→21:02)
[2022-09-14] MEDS: Omeprazole 20 MG CAPCR 40 MG PO (08:25)
[2022-09-14] MEDS: Salt Supplement (BUFFERED) TAB 1 TAB PO ×2 (08:25→21:02)
[2022-09-14] MEDS: Azithromycin 250 MG TAB PO (09:17)
--- NOTE | 2022-09-14 09:20 | PDOC.CMIN ---
Date of service: 09/14/22 Time of Service: 09:20 Care Management Initial Assmt Initial Assessment REASON FOR HOSPITALIZATION:: COPD Exacerbation PREVIOUS FUNCTIONAL STATUS/SOCIAL/FAMILY SUPPORTS:: Laney lives in [place] in an inlaw apartment in her son Stanley's home along with his Bree and their 4 children. Her family, including the children, are very helpful and supportive. Laney uses 2L of nasal O2 at baseline which she receives from [facility] and uses a walker or furniture surfing to ambulate in her home. She no longer drives and rarely goes out. Per pt, her doctors appointments are primarily virtual at this point, because it's difficult for her to leave the house. Laney is currently receiving home health nursing services through [facility]. CURRENT FUNCTIONAL STATUS:: Laney was sitting up in bed when CM met with her. She was in good spirits and engaged easily with CM, well known to her from previous admissions. Laney stated that she had been doing well at home since her last admission. She developed a low grade fever a few days ago then yesterday it went up to 102 and her oxygen saturation level dropped into the 50's. She decided that it would be best to be evaluated in the ED and her son called 911. Laney stated that she is feeling much better and that she realizes that it was bedoya to have sought medical care before she got worse. She shared that the last time she got sick she waited too long and ended up in the hospital for 11 days. ADVANCE DIRECTIVES:: [facility] on file. DNR/DNI [facility] Has patient been provided with info about the portal/API?: Yes Did the patient sign up for the portal?: Yes CODE STATUS:: DNR/DNI INSURANCE COVERAGE / FINANCIAL ISSUES:: Medicare Medicaid CURRENT HOME/COMMUNITY SERVICES/EQUIPMENT:: home health nursing through [facility] Home O2 through [facility] Followed by Palliative Care PRIMARY CARE PHYSICIAN:: Ralph Rahman POTENTIAL DISCHARGE NEEDS:: Follow up with Pulmonology, PCP and plan of care PATIENT/FAMILY EDUCATION NEEDS:: Review of discharge instructions, limitations, activity, follow up plan. discuss [employer] Me [employer] TRANSPORTATION:: via private vehicle with family PLAN:: Anticipate Laney will return home with a resumption of home health services for nursing. She will follow up with her community providers and plan of care and transport with family. CM will support Laney and her discharge planning needs. [facility] All Active Problems (Updated 09/13/22 @ 21:36 by Filiberto Boone DO) COPD exacerbation (Acute) Bronchitis (Acute) Fever (Acute) Advanced care planning/counseling discussion (Acute) Pneumonia (Acute) Diarrhea (Acute) History of Clostridioides difficile colitis (Acute) Bilateral pneumonia (Acute) LLL pneumonia (Acute ~03/30/18) Acute exacerbation of chronic obstructive pulmonary disease (Acute) Dependence on supplemental oxygen (Acute) Right shoulder pain (Acute) Abnormal weight loss (Acute) Chronic respiratory failure with hypercapnia (Acute) Palliative care patient (Acute) Depression (Chronic) Protein calorie malnutrition (Acute) Chronic pain (Chronic) TERESA (acute kidney injury) (Acute) Acute on chronic respiratory failure with hypoxia and hypercapnia (Acute) Hyponatremia (Chronic) Epigastric pain (Acute) COPD with acute exacerbation (Acute) Odynophagia (Acute) GERD (gastroesophageal reflux disease) (Chronic) Chronic obstructive pulmonary disease (Chronic) Lumbosacral spondylosis without myelopathy (Acute) Fibromyalgia (Acute) Fall (Acute) Low back pain (Acute) Discharge planning issues (Acute) T12 compression fracture (Acute) Hemoptysis (Acute) History of cataract removal with insertion of prosthetic lens (Acute 06/05/15) Status post appendectomy (Acute) Status post laminectomy (Acute) Pain from implanted hardware (Chronic 10/30/18) S/P Hardware removal Chronic anxiety (Chronic 06/22/13) Chronic emphysema syndrome (Chronic) Chronic pain in right shoulder (Chronic 11/20/13) Moderate protein malnutrition (Chronic 11/20/13) Neck pain (Acute) Irritable bowel syndrome with diarrhea (Chronic) History of tobacco abuse (Chronic) Anxiety (Chronic) Medical History Acute exacerbation of chronic obstructive pulmonary disease (COPD) C. difficile colitis Cervical neck pain with evidence of disc disease (06/22/13) Contusion of right knee, initial encounter DNI (do not intubate) DNR (do not resuscitate) Ongoing leg pain continue nSaid prn tramadol see surgeon next week consider topical analgesic on surrounding skin Pneumothorax, spontaneous, tension (04/11/10) POLST (Physician Orders for Life-Sustaining Treatment) Surgical History Appendectomy CHEST TUBE Extraction of cataract 06/05/15; LEFT EYE; DR. ARAUZ H/O section Hx of hysterectomy LAMINECTOMY CERVICAL SPINE Right femoral fracture (05/09/17) ORIF DOS: 05/10/17 Dr. Bob Family History Mother , at age 89, cardiac problems No problems noted. Father , at 81 Cancer Throat cancer Brother , at 71 Colon cancer Sister Diabetes DM2 Sister Diabetes DM2 Son No problems noted. Social History Smoking/Tobacco Use Status: Former Tobacco Use Quit Date: 07/17/14 Pack-years: 50 Tobacco: How many years used: 50 Smoking risk assessment performed?: Yes Alcohol Intake: former Year quit: 1979 Drug use: Never Substance use type: does not use Household members: none Housing: apartment Do you feel safe at home: Yes Do you feel safe in your relationship?: No Additional Social history: 16 years ago. Originally from [place], moved here to be near son and grand children. [place]. Enjoys contact with 4 grandchildren throughout the day (they are homeschooled and her home much of the time). Bedbound approximately 22 hours a day. On disability due to chronic back pain. 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 Approximate 75 pack year history of tobacco. No alcohol or illicit drug use endorsed.
--- NOTE | 2022-09-14 13:33 | RESPIRATORY ---
Addendum entered by Mirza Lovett 09/15/22 11:38: Pt's own home BiPAP. [employer] [address] BiPAP IPAP: 10 EPAP: 5 2L O2 bleed in. DME: [facility] Original Note: RT Assessment Start: 09/14/22 13:22 Freq: Status: Active Protocol: Document 09/14/22 13:23 (Rec: 09/14/22 13:32 [facility]-[id number]) RT Assessment Pulmonary History Pulmonary History COPD Smoking History Smoking/Tobacco Use Status Former Tobacco Use Tobacco: How many years used 50 Quit Date 07/17/14 Tobacco Type cigarettes Packs per Day 2 Cigarettes per Day 20 Years smoked 50 Smoking packs per day 2 OXYGEN HISTORY: Supplemental O2 At Rest 2 With Exertion 2 CPAP Can use home machine Yes: Pt does not use O2 bleed in. DME/Compliance DME [facility] Pt uses every night. Current Respiratory Symptoms Current Respiratory Symptoms Cough Activity Activity Level Minimally active at home. Short distances in home. Respiratory Breath Sounds Breath Sounds Any abnormal sounds, decreased breath sounds Response No change Pulse Rate <100 Respiratory Rate 18-25 Shortness of Breath On exertion Respiratory Therapy Score Total 3 Assessment and Plan RT Treatment Protocol Lung Expansion Therapy Protocol,Bronchial Hygiene Therapy Protocol Note Pt states that she feels no benefit from neulizer treatments. Pt states her son is bringing in her CPAP today. RT initiated VibraPEP acapella and incentive spirometer device with patient . RT suggests for pt to continue home regimen and change scheduled nebulizers to PRN and reassess pt as needed .
--- NOTE | 2022-09-14 16:30 | DI.CT_ITS ---
Exam(s) CT CHEST PE CTA EXAM: CT CHEST PE CTA CLINICAL HISTORY: dyspnea, cough, night sweats, hypoxia. TECHNIQUE: Imaging Protocol: Axial CT angiography was performed with multi-slice acquisition and mu lti-planar reconstructions as well as axial, coronal and sagittal MIP reconstructions. CONTRAST MATERIAL: Intravenous: Omnipaque 350 Contrast volume:100 ml COMPARISON: CT CT CHEST PE CTA from 07/26/2022 FINDINGS: Pulmonary Arteries: No evidence of filling defect to suggest pulmonary emboli. Tracheobronchial tree: Patent where visualized. Mediastinum and Airam: Stable mild mediastinal and hilar adenopathy, likely reactive. Pulmonary parenchyma: New patchy infiltrates seen in the anterior right upper lobe and lingula. Atel ectasis at the right lung base. Previously noted basilar infiltrates on the previous exam have resol lucio. Stable 4 millimeter nodule right upper lobe. Stable right apical pleural thickening. Moderate centrilobular emphysema. Pleura: No effusion or pneumothorax. Heart: The heart is mildly dilated. Minimal coronary artery calcifications are seen. Aorta: Thoracic aorta non-dilated. Mild atherosclerotic changes. No dissection. Upper abdomen: Patchy liver perfusion likely secondary to phase of contrast enhancement. Bones: Stable lower thoracic and upper lumbar compression fractures. Tubes, Catheters, and Lines: None IMPRESSION: No evidence of pulmonary embolism. New patchy infiltrates in the right upper lobe and lingula. Underlying emphysematous changes. RADIATION DOSE DELIVERED: 277.56mGy.cm Total DLP DATA REPOSITORY: All CT scans at this facility are submitted to the National Radiology Data Registry (NRDR) Dose Index Registry (DIR) with the [employer] (ACR). RADIATION OPTIMIZATION: All CT scans at this facility use at least one of these dose optimization te chniques: automated exposure control; mA and/or kV adjustment per patient size (includes targeted exa ms where dose is matched to clinical indication); or iterative reconstruction.
--- NOTE | 2022-09-14 16:36 | PGE_ITS ---
Date of Service Date of service: 09/14/22 Time of Service: 16:36 Assessment and Plan Assessment and plan (1) Acute exacerbation of chronic obstructive pulmonary disease: Status: Acute Assessment and plan: Continue aerosolized bronchodilators along with Solu-Medrol. Continue azithromycin and add Rocephin pending results of her CT scan. We will check CT scan for any new infiltrates that are not appearing on her chest x-ray. Continue home oxygen. She is now down to 3 L/min nasal cannula. She does wear BiPAP at night Subjective Subjective Interval history since last seen: Patient reports subjective fevers chills and sweats at home. She has been afebrile here. She has a cough that is been nonproductive. She was admitted as a COPD exacerbation. Chest x-ray showed no acute infiltrates. Patient was started on Solu-Medrol and bronchodilators but given antibiotics in the emergency department which were not continued by the admitting hospitalist. However I have continued her on azithromycin will also continue ceftriaxone. I recommend we get a CT scan of her chest. Exam Narrative Exam Narrative: Asthenic elderly white female in no acute distress able to talk in complete paragraphs she is alert and oriented x3. Lungs with prolonged expiratory phase without rhonchi or wheezing Heart is regular rate and rhythm Abdomen scaphoid soft and nontender Extremities without edema Objective Last Vital Signs Temp 37 C 09/14/22 15:12 Pulse 101 H 09/14/22 15:12 Resp 20 09/14/22 15:12 BP 122/66 09/14/22 15:12 Pulse Ox 92 09/14/22 16:12 Laboratory Results - last 24 hr 09/13/22 09/13/22 09/13/22 20:03 20:03 20:03 WBC 6.02 RBC 4.08 Hgb 10.7 L Hct 36.5 MCV 90 MCH 26.2 L MCHC 29.3 L RDW 14.6 Plt Count 253 MPV Immature Gran % 0.5 Neutrophils % 71.7 Lymphocytes % 15.0 Monocytes % 8.8 Eosinophils % 3.3 Basophils % 0.7 Nucleated RBC % 0.0 Absolute Neutrophils 4.32 Absolute Lymphocytes 0.90 L Absolute Monocytes 0.53 Absolute Eosinophils 0.20 Absolute Basophils 0.04 RBC Morphology Normal PT INR APTT VBG pH 7.38 VBG pCO2 62 H* VBG pO2 39 VBG HCO3 36 H VBG Total CO2 34 H VBG O2 Saturation 72 VBG Base Excess 11 H VBG Lactate Sodium 142 Potassium 4.5 Chloride 103 Carbon Dioxide 35.4 H Anion Gap 3.6 BUN 12 Creatinine 0.9 Est GFR (CKD-EPI 2020) 65.84 Glucose 146 H Calcium 8.3 L Total Bilirubin 0.3 AST 11 L ALT 9 L Alkaline Phosphatase 101 Troponin I < 50 NT-Pro-B Natriuret Pep 499 H Total Protein 6.9 Albumin 2.9 L Procalcitonin Urine Color Urine Clarity Urine pH Ur Specific [place] Urine Protein Urine Ketones Urine Blood Urine Nitrite Urine Bilirubin Urine Urobilinogen Ur Leukocyte Esterase Urine RBC Urine WBC Ur Epithelial Cells Urine Crystals Urine Bacteria Urine Mucus Ur Culture Indicated? Urine Glucose COVID-19 Source SARS-CoV-2 (PCR) Influenza Type A (PCR) Influenza Type B (PCR) RSV (PCR) 09/13/22 09/13/22 09/13/22 20:03 20:03 20:03 WBC RBC Hgb Hct MCV MCH MCHC RDW Plt Count MPV Immature Gran % Neutrophils % Lymphocytes % Monocytes % Eosinophils % Basophils % Nucleated RBC % Absolute Neutrophils Absolute Lymphocytes Absolute Monocytes Absolute Eosinophils Absolute Basophils RBC Morphology PT 9.2 L INR 0.9 APTT 22.6 VBG pH VBG pCO2 VBG pO2 VBG HCO3 VBG Total CO2 VBG O2 Saturation VBG Base Excess VBG Lactate 0.8 Sodium Potassium Chloride Carbon Dioxide Anion Gap BUN Creatinine Est GFR (CKD-EPI 2020) Glucose Calcium Total Bilirubin AST ALT Alkaline Phosphatase Troponin I NT-Pro-B Natriuret Pep Total Protein Albumin Procalcitonin < 0.1 Urine Color Urine Clarity Urine pH Ur Specific [place] Urine Protein Urine Ketones Urine Blood Urine Nitrite Urine Bilirubin Urine Urobilinogen Ur Leukocyte Esterase Urine RBC Urine WBC Ur Epithelial Cells Urine Crystals Urine Bacteria Urine Mucus Ur Culture Indicated? Urine Glucose COVID-19 Source SARS-CoV-2 (PCR) Influenza Type A (PCR) Influenza Type B (PCR) RSV (PCR) 09/13/22 09/13/22 09/13/22 20:06 22:40 22:47 WBC RBC Hgb Hct MCV MCH MCHC RDW Plt Count MPV Immature Gran % Neutrophils % Lymphocytes % Monocytes % Eosinophils % Basophils % Nucleated RBC % Absolute Neutrophils Absolute Lymphocytes Absolute Monocytes Absolute Eosinophils Absolute Basophils RBC Morphology PT INR APTT VBG pH VBG pCO2 VBG pO2 VBG HCO3 VBG Total CO2 VBG O2 Saturation VBG Base Excess VBG Lactate Sodium Potassium Chloride Carbon Dioxide Anion Gap BUN Creatinine Est GFR (CKD-EPI 2020) Glucose Calcium Total Bilirubin AST ALT Alkaline Phosphatase Troponin I < 50 NT-Pro-B Natriuret Pep Total Protein Albumin Procalcitonin Urine Color Yellow Urine Clarity Clear Urine pH 6.5 Ur Specific [place] 1.015 Urine Protein Negative Urine Ketones Negative Urine Blood Trace-intact H Urine Nitrite Negative Urine Bilirubin Negative Urine Urobilinogen 0.2 Ur Leukocyte Esterase Negative Urine RBC 3-5 H Urine WBC 0-2 Ur Epithelial Cells Few Urine Crystals Negative Urine Bacteria Rare Urine Mucus Negative Ur Culture Indicated? No Urine Glucose Negative COVID-19 Source Nasopharynx SARS-CoV-2 (PCR) Negative Influenza Type A (PCR) Negative Influenza Type B (PCR) Negative RSV (PCR) Negative Time Spent with Patient Time Spent with Patient: 25-34 minutes Time was spent: preparing to see the patient(eg.review tests), ordering medications,tests, procedures, referring, communicating with other health health care social worker (Discussion with Dr. Cabrera), indepentently interpreting results, counseling the patient and care coordination
--- NOTE | 2022-09-14 17:54 | DI.VRAD_ITS ---
PROCEDURE INFORMATION: Exam: CTA Chest With Contrast Exam date and time: 09/14/2022 5:04 PM Age: 77 years old Clinical indication: Other: Dyspnea, cough, night sweats, hypoxia TECHNIQUE: Imaging protocol: Computed tomographic angiography of the chest with contrast. Exam focused on the arteries. 3D rendering (Not supervised by radiologist): MIP and/or 3D reconstructed images were created by the technologist. Radiation optimization: All CT scans at this facility use at least one of these dose optimization techniques: automated exposure control; mA and/or kV adjustment per patient size (includes targeted exams where dose is matched to clinical indication); or iterative reconstruction. Contrast material: OMNIPAQUE 350; Contrast volume: 100 ml; Contrast route: INTRAVENOUS (IV); COMPARISON: CT CHEST PE CTA 07/26/2022 6:25 PM FINDINGS: Pulmonary arteries: The main pulmonary artery and proximal pulmonary arteries are dilated with the main measuring 3.5 cm in diameter. No pulmonary emboli. Aorta: No thoracic aortic aneurysm or dissection. There is a small to moderate amount of calcified plaque throughout its course. Lungs: Unchanged 0.4 cm well-circumscribed nodule in the right upper lobe on image [id number]. There is some apical pleural thickening in the right upper lobe that is unchanged. There centrilobular emphysematous changes. Subsegmental atelectatic findings in the lung bases favoring the right lower lobe and lingula. The inferior anterior portion of the right lower lobe has tree-in-bud appearance of acute airspace disease. Pleural spaces: No pleural effusions or pneumothorax. Heart: Mild cardiac enlargement. No pericardial effusion or coronary artery calcifications. Lymph nodes: Unremarkable. No enlarged lymph nodes. Bones/joints: Old superior endplate compressions of T11 and T12.. No acute fracture. Soft tissues: Unremarkable. IMPRESSION: 1. No pulmonary emboli, thoracic aortic aneurysm or dissection. 2. Possible acute airspace disease developing in the inferior portion of the right upper lobe anteriorly. 3. Mild atherosclerotic peripheral vascular disease. 4. Mild centrilobular emphysema. 5. Minimal bibasilar atelectatic findings. 6. Unchanged 0.4 cm right upper lobe pulmonary nodule. Dictated and Authenticated by: Gaurav Patel MD. Ordering:[facility] Eric Choi MD
[2022-09-14] MEDS: Omnipaque 350 MG/ML 100 ML BTL IJ (18:04)
[2022-09-14] MEDS: Normal Saline - Diluent 50 ML VIAL IJ (18:05)
[2022-09-14] MEDS: cefTRIAXone 1,000 MG in Normal Saline 50 ML 100 MG IVPB (21:01)
[2022-09-14] MEDS: diphenhydrAMINE 25 MG CAP 50 MG PO (21:02)
[2022-09-14] MEDS: Mirtazapine 15 MG TAB PO (21:02)
[2022-09-15] VITALS (7 sets, daily range): BP systolic 100–108; BP diastolic 57–61; PULSE 81–91; RESP 10–21; TEMP 36–37; O2SAT 87–94
[2022-09-15] MEDS: Normal Saline Flush 10 ML SYR IVP ×2 (05:38→20:35)
[2022-09-15] MEDS: methylPREDNISolone SUCC 125 MG VIAL 80 MG IVP (05:38)
[2022-09-15] MEDS: Fluticasone-Umeclidin-Vilanter [Trelegy Ellipta] 1 EACH IH (08:55)
[2022-09-15] MEDS: Salt Supplement (BUFFERED) TAB 1 TAB PO ×2 (09:37→20:32)
[2022-09-15] MEDS: Sucralfate 1 GM TAB PO ×4 (09:37→21:35)
[2022-09-15] MEDS: Omeprazole 20 MG CAPCR 40 MG PO (09:37)
[2022-09-15] MEDS: Roflumilast 500 MCG TAB PO (09:37)
[2022-09-15] MEDS: Gabapentin 100 MG CAP PO ×3 (09:37→20:32)
[2022-09-15] MEDS: Acetylcysteine 600 MG CAP PO (09:37)
[2022-09-15] MEDS: Azithromycin 250 MG TAB PO (09:37)
[2022-09-15] MEDS: Sertraline 100 MG TAB PO (09:37)
--- NOTE | 2022-09-15 10:12 | CMPROGNOTE_ITS ---
Date of service: 09/15/22 Time of Service: 10:12 Care Management Progress Note Progress Note Text Progress Note Text: S/O:Laney was sitting up in bed when CM met with her. She was in good spirits but stated that she was not feeling so well. She shared that she had been having a lot of BMs and that they were very dark in color. She stated that she would not be willing to have a colonoscopy to evaluate this because she cannot have anesthesia. She stated that she has had 2 in the past while awake and is not interested in a third. She then added, but I guess I'm not willing to over this. Laney's WBC is within normal limits, she is afebrile and her vital signs are stable. She is saturating in the low to mid 90s on 3L/min of nasal O2. A: Laney is a 77 year old woman admitted on 09/13/22 with a COPD Exacerbation P:Anticipate Laney will return home with a resumption of home health services for nursing. She will follow up with her community providers and plan of care and transport with family. CM will support Laney and her discharge planning n eeds.
--- NOTE | 2022-09-15 13:43 | PGE_ITS ---
Date of Service Date of service: 09/15/22 Time of Service: 13:43 Assessment and Plan Assessment and plan (1) Acute exacerbation of chronic obstructive pulmonary disease: Status: Acute Assessment and plan: cont. azithromycin and Zithromax as noted above. We will switch Solu-Medrol to prednisone. Continued scheduled DuoNebs along with as needed DuoNebs. Continue her home dose of Roflumilast along with her Trelegy. Professional time spent interviewing and examining patient, discussion of goals of care with hospital team (care management, nursing and consulting profession als) was 20 minutes. (2) Pneumonia: Status: Acute Assessment and plan: Continue continue Rocephin and azithromycin, continue acapella an incentive spirometer. Check urine strep antigen and Legionella antigen. Subjective Subjective Interval history since last seen: Patient is feeling better. Less dyspnea and no night sweats overnight. She remains afebrile. Although her CXR did not show pneumonia, her CT scan demonstrated new RUL and lingula infiltrates. Patient is currently being treated w/ Ceftriaxone and azithromycin. (day #3 of each). Her oxygen did get increased to 3 lpm (she usually uses 2 lpm at home). I will keep her for one more day of iv antibiotics then release her tomorrow on oral course of augmentin and zithromax to complete 7 days of antibiotics. Exam Narrative Exam Narrative: She is lying in bed visiting with her [id number]. She is alert and oriented per space time circumstance. Lungs with prolonged expiratory phase no rhonchi or rales Heart is regular rate and rhythm Abdomen scaphoid soft and nontender Extremities without edema Objective Last Vital Signs Temp 36.0 C L 09/15/22 07:59 Pulse 81 09/15/22 07:59 Resp 14 09/15/22 07:59 BP 108/61 09/15/22 07:59 Pulse Ox 94 09/15/22 07:59 Time Spent with Patient Time Spent with Patient: <25 minutes Time was spent: preparing to see the patient(eg.review tests), ordering medications,tests, procedures, indepentently interpreting results, counseling the patient and care coordination
[2022-09-15] MEDS: predniSONE 20 MG TAB 40 MG PO (14:18)
[2022-09-15] MEDS: clonazePAM 1 MG TAB PO ×2 (14:23→20:32)
--- NOTE | 2022-09-15 17:30 | CHAPLAIN ---
Laney was sitting at the edge of the bed when I visited. We had a long conversation today, mostly about family and Laney approaching the end of her life. She lives an apartment above her son, daughter in law and four grandchildren. The grandchildren visit often. Laney said her son has made plans to move to [place] for 11 months to participate in [employer] utilization management rn training. He is a ic designer gate arrays and also a edger tailer for [employer]. Laney shared some personal history about her relationship with her son. This is her second admission for an COPD exacerbation. Both times x-rays did not detect pneumonia, but further scans did. She hopes to be going home soon.
[2022-09-15] MEDS: cefTRIAXone 1 GM/50 ML BAG IVPB (20:28)
[2022-09-15] MEDS: Acetaminophen 500 MG TAB 1000 MG PO (20:31)
[2022-09-15] MEDS: Mirtazapine 15 MG TAB PO (21:35)
[2022-09-15] MEDS: diphenhydrAMINE 25 MG CAP 50 MG PO (21:35)
[2022-09-16] VITALS: PULSE 82; O2SAT 95
[2022-09-16 01:15] VITALS: O2SAT 95
[2022-09-16] MEDS: Fluticasone-Umeclidin-Vilanter [Trelegy Ellipta] 1 EACH IH (07:41)
[2022-09-16 07:43] VITALS: O2SAT 97
[2022-09-16 07:57] VITALS: BP 132/73; PULSE 83; RESP 14; TEMP 36.6; O2SAT 96
[2022-09-16] MEDS: clonazePAM 1 MG TAB PO (09:38)
[2022-09-16] MEDS: Acetylcysteine 600 MG CAP PO (09:38)
[2022-09-16] MEDS: Azithromycin 250 MG TAB PO (09:38)
[2022-09-16] MEDS: Sertraline 100 MG TAB PO (09:39)
[2022-09-16] MEDS: Roflumilast 500 MCG TAB PO (09:39)
[2022-09-16] MEDS: Gabapentin 100 MG CAP PO ×2 (09:39→13:37)
[2022-09-16] MEDS: predniSONE 20 MG TAB 40 MG PO (09:40)
[2022-09-16] MEDS: Omeprazole 20 MG CAPCR 40 MG PO (09:40)
[2022-09-16] MEDS: Normal Saline Flush 10 ML SYR IVP (09:40)
--- NOTE | 2022-09-16 10:30 | PDOC.CMPRO ---
Date of service: 09/16/22 Time of Service: 10:30 Care Management Progress Note Progress Note Text Progress Note Text: S/O:Laney was sitting up in bed when CM met with her. A: Laney is a 77 year old woman admitted on 09/13/22 with a COPD Exacerbation P:Anticipate Laney will return home with a resumption of home health services for nursing. She will follow up with her community providers and plan of care and transport with family. CM will support Laney and her discharge planning needs.
[2022-09-16] MEDS: Sucralfate 1 GM TAB PO (11:30)
[2022-09-16 11:48] VITALS: BP 145/75; PULSE 82; RESP 18; TEMP 36.2; O2SAT 94
[2022-09-16] MEDS: Ondansetron O.D.T. 4 MG TABEF PO (12:25)
--- NOTE | 2022-09-16 13:48 | PDOC.HHF2F_ITS ---
Home Health Referral Home Health Orders Clinical synopsis of why skilled professionals are needed: Resumption of prior home health services including nursing and O.T. Medical diagnosis necessitation home health referral: Hospitalization for COPD and pneumonia. Nursing to assess patient respiratory status, monitor medication changes, coordinate any new orders from PCP Registered Nurse: Check all that apply Instruct on new or changed medication(s)/assess compliance: Ordered (antibiotics, prednisone taper) Assess for exacerbation of medical condition, instruct patient/caregivers on signs and symptoms to report for early detection: Ordered Occupational Therapist: Evaluate and treat for patient unable to perform ADL/IADL/self-care: Ordered (routine evaluation) Traveling Repair Accountant: Assist with community resources: Ordered Assist with press tender long goods care planning: Ordered Home Bound Status Requires the aid of supportive device (check all that apply): Walker Patient has a condition such that leaving home is medically contraindicated (Describe): severe COPD causing hypoxemia w/ any efforts to travel outside of her home Encounter Date and Reason: I certify that a FTF encounter for this patient was performed on September 16, 2022 and that such encounter was related to the primary reason the patient requires home health services. The encounter was conducted in the following manner: * By me as the certifying physician, CUBING MACHINE TENDER, PA or * By an inpatient physician, CUBING MACHINE TENDER or PA during an inpatient stay who communicated findings to me, Certification And Authentication I certify that I composed the above information based on my clinical judgment relating to this patient's medical condition and, if applicable, clinical findings communicated to me by the NPP or inpatient physician who performed the FTF encounter. Name of Provider that will be monitoring home health services: Ralph Rahman
--- NOTE | 2022-09-16 13:51 | DSE_ITS ---
Date of service: 09/16/22 Time of Service: 13:52 DS: Diagnosis Discharge Diagnosis (1) Acute exacerbation of chronic obstructive pulmonary disease: Status: Acute (2) Pneumonia: Status: Acute Asessment and Plan: Patient presented w/ fever, chills, sweats, and worsening hypoxemia despite increasing her home oxygen and , nonproductive cough and was found to have bilateral pneumonia on her chest CT (although not seen on CXR). Patient was treated w/ Ceftriaxone and azithromycin and improved. Hypoxemia improved and she is now back on her home oxygen levels. Sweats resolved overnight and she had only single fever on admission which resolved. She is to complete 7 more days of antibiotics including Augmentin and Azithromycin and 7 days of prednisone. Suggest repeat CT scan of the chest in 4 to 6 weeks to assess resolution of her infiltrates. 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 She was having hypoxemia at home despite increasing her level of her home oxygen w/ her saturat ion dropping into the 50's%. See H&P for details of her presentation. She was given multiple DuoNeb treatments in the ED and started on iv corticosteroids and given dose of Rocephin. Initial CXR did not show any infiltrates. CT scan of her chest was performed and demonstrated early pneumonia w/ infiltrates RUL and lingula. She was kept on Rocephin 1 gm daily which she received from 09/13 through 09/15 (she did not get dose on the day of her discharge), and was on azithromycin from 09/14 through her discharge. She will continue on 7 more days of antibiotics including Augmentin and azthromycin and 7 days of prednisone 40 mg daily. She is now back to her baseline oxygen requirements. She should have follow up CXR in two weeks and see her PCP next week. Home Meds and New Rx's Prescriptions: New amoxicillin-pot clavulanate [Augmentin XR] 1,000-62.5 mg tablet extended release 12 hr 1 tab PO BID Qty: 14 0RF azithromycin 250 mg tablet 250 mg PO DAILY 7 Days Qty: 7 0RF prednisone 20 mg tablet 40 mg PO DAILY 7 Days Qty: 14 0RF Continued (DME) Oxygen Tank See Rx Instructions .ROUTE .MEDSUPPLY Qty: 1 Rx Instructions: As directed PreserVision AREDS-2 250-90-40-1 mg Capsule 2 cap PO DAILY Trelegy Ellipta 100-62.5-25 mcg blister with device 1 inh IH DAILY Qty: 28 11RF sertraline 100 mg tablet 100 mg PO DAILY Qty: 90 3RF clonazepam 1 mg tablet 1 mg PO TID PRN (Reason: anxiety) Qty: 90 2RF Rx Instructions: dose increase 02/23/22 buprenorphine [Butrans] 15 mcg/hour patch weekly 1 patch transdermal Q7D Qty: 4 2RF Combivent Respimat 20-100 mcg/actuation mist 1 puff inhalation Q6H Qty: 4 5RF sucralfate 1 gram tablet 1 g PO AC & HS Qty: 120 5RF diphenhydramine HCl 50 mg capsule 50 mg PO QHS Qty: 1 0RF prednisone 20 mg tablet 40 mg PO DAILY Qty: 10 0RF Rx Instructions: Take 2 tablets once a day for 5 days. levofloxacin 750 mg tablet 750 mg PO DAILY Qty: 7 0RF roflumilast [Daliresp] 500 mcg tablet 500 mcg PO DAILY Qty: 90 3RF acetaminophen 500 mg tablet 1,000 mg PO Q8H PRN (Reason: pain) Qty: 90 8RF gabapentin 100 mg capsule 100 mg PO TID Qty: 90 3RF diclofenac sodium 1 % gel 2 g topical QID PRN (Reason: pain) Qty: 100 1RF Rx Instructions: apply to single elbow, wrist or hand; for hand includes palm/fingers/back of hand morphine concentrate 100 mg/5 mL (20 mg/mL) solution See Rx Instructions PO Q1H PRN MDD 120 mg Qty: 30 0RF Rx Instructions: 0.25-1.0 ml orally every 1 hour, as needed; HOSPICE mirtazapine 15 mg tablet 15 mg PO HS Qty: 90 3RF omeprazole 40 mg capsule,delayed release(DR/EC) 40 mg PO DAILY Qty: 30 5RF acetylcysteine 600 mg capsule See Rx Instructions .ROUTE .COMPLEX Qty: 90 3RF Dose Instruction: TAKE ONE CAPSULE BY MOUTH EVERY DAY Rx Instructions: TAKE 1 CAPSULE BY MOUTH EVERY DAY ipratropium-albuterol 0.5 mg-3 mg(2.5 mg base)/3 mL solution for nebulization 3 ml UPD TID Qty: 180 1RF Salonpas 1 EACH adhesive patch,medicated 1 ea Topical .DAILY X 12 HOURS PRN (Reason: Pain) naloxone [Narcan] 4 mg/actuation spray,non-aerosol 1 spray KELL Q2-3M PRN (Reason: opioid overdose) Qty: 2 0RF Rx Instructions: spray 1 dose into ONE nostril; alternate nostrils w each dose until help arrives Never used cholecalciferol (vitamin D3) [Vitamin D3] 2,000 unit Tablet 3,000 unit PO DAILY doxylamine succinate 25 mg Tablet 25 mg PO QHS PRN (Reason: Insomnia) calcium carbonate 600 mg calcium (1.5 gram) Tablet,Chewable 3 - 4 tab PO TID PRN PRN (Reason: Heartburn) cranberry extract-vitamin C 250-60 mg Capsule 1 cap PO DAILY Thermotabs 287-180-15 mg Tablet 1 tab PO BID Qty: 60 0RF prednisone 10 mg Tablet See Rx Instructions .ROUTE .COMPLEX Qty: 30 0RF Rx Instructions: 30 mg orally for 3 days, then 20 mg for 3 days, then 10 mg for 3 days, then 5 mg Discharge Instructions Instructions: Bacterial Pneumonia (DC) Additional Instructions: complete all of your antibiotics. You have been prescribed Augmentin and azithromycin, take as directed. you have also been put on a week of prednisone for your COPD. Please get follow up w/ Dr. Rosas in the next week. If you have severe shortness of breath not relieved by your inhalers and oxygen or have fevers then return to the emergency room. Referrals: Ralph Rahman MD [Primary Care Provider] - (to be see in the next week) Activity:: Activity as Tolerated Equipment/Supplies:: No Equipment Needed Diet:: Normal Diet Discharge Orders Discharge Orders: Discharge Order (Routine); Ordered 09/16/22 Ordered By: Jimbo Reyes DS: Summary Time Spent with Patient providing and/or coordinating discharge services: Less than 30 minutes Specific discharge activities: Interview/exam of patient; review of discharge instructions, completion of prescriptions/discharge instructions; discussion w/ nursing and CM; documentation of hospital visit Status at Discharge Functional status at discharge: uses cane/walker Overall status at discharge: patient is back to baseline Mental Status: mental status grossly normal Speech and Movement: speech and movement normal Mood: congruent mood Affect: normal affect Exam Narrative Exam Narrative: Laney is alert and oriented, she is texting on her phone, haviing finished lunch She is able to talk in complete paragraphs w/out dyspnea. no cough, no accessory respiratory muscle use Lungs: clear w/ prolonged expiratory phase w/out wheezing or rhonchi Heart: RRR Abdomen: soft, nontender, normal bowel sounds Extremities: no edema or cyanosis Psych Mental Status: mental status grossly normal Speech and Movement: speech and movement normal Mood: congruent mood Affect: normal affect DS: Data Vitals/I&O Vitals and I&O: Vital Signs Temperature 36.2 C L 09/16/22 11:48 Temperature Source Tympanic 09/16/22 11:48 Pulse 82 09/16/22 11:48 Pulse Rhythm Regular 09/16/22 11:02 Pulse 104 H 09/13/22 21:30 Respiratory Rate 18 09/16/22 11:48 Respiratory Effort Normal 09/16/22 11:02 Respiratory Depth Normal 09/16/22 11:02 Respiratory Pattern Normal 09/16/22 11:02 Blood Pressure 145/75 H 09/16/22 11:48 Blood Pressure Mean 67 09/13/22 20:46 Pulse Oximetry 94 09/16/22 11:48 Oxygen Delivery Method Nasal Cannula 09/16/22 11:48 Oxygen Flow Rate 2 09/16/22 11:48 Fraction of Inspired Oxygen (FIO2) 35 09/15/22 08:35 Pain Level 10 09/16/22 11:48 Comment CPAp w/ 2L bleed in 09/16/22 00:00 Intake & Output 09/15/22 09/16/22 09/16/22 23:59 11:59 23:59 Intake Total 1285 / 1285 Output Total 275 / 1125 100 / 100 Balance 1010 / 160 -100 / -100 Intake: IV 85 / 85 Oral 1200 / 1200 Output: Urine 275 / 1125 100 / 100 Other: Urine Color Yellow Pale Urine Appearance Clear Clear Stool Size Small Stool Characteristics Soft Liquid Brown Black Voiding Methods Bedside Commode Toilet Data Completed and Pending Labs on day of discharge: Labs from last 24 hours 09/16/22 11:11 Urine Legionella Ag Pending Ur Strep pneumoniae Ag Pending Preliminary micro results at discharge 09/13/22 20:25 Blood Culture - Preliminary Blood NO GROWTH 48 HOURS 09/13/22 20:03 Blood Culture - Preliminary Blood NO GROWTH 48 HOURS PFSH All Active Problems (Updated 09/13/22 @ 21:36 by Filiberto Boone DO) COPD exacerbation (Acute) Bronchitis (Acute) Fever (Acute) Advanced care planning/counseling discussion (Acute) Pneumonia (Acute) Diarrhea (Acute) History of Clostridioides difficile colitis (Acute) Bilateral pneumonia (Acute) LLL pneumonia (Acute ~03/30/18) Acute exacerbation of chronic obstructive pulmonary disease (Acute) Dependence on supplemental oxygen (Acute) Right shoulder pain (Acute) Abnormal weight loss (Acute) Chronic respiratory failure with hypercapnia (Acute) Palliative care patient (Acute) Depression (Chronic) Protein calorie malnutrition (Acute) Chronic pain (Chronic) TERESA (acute kidney injury) (Acute) Acute on chronic respiratory failure with hypoxia and hypercapnia (Acute) Hyponatremia (Chronic) Epigastric pain (Acute) COPD with acute exacerbation (Acute) Odynophagia (Acute) GERD (gastroesophageal reflux disease) (Chronic) Chronic obstructive pulmonary disease (Chronic) Lumbosacral spondylosis without myelopathy (Acute) Fibromyalgia (Acute) Fall (Acute) Low back pain (Acute) Discharge planning issues (Acute) T12 compression fracture (Acute) Hemoptysis (Acute) History of cataract removal with insertion of prosthetic lens (Acute 06/05/15) Status post appendectomy (Acute) Status post laminectomy (Acute) Pain from implanted hardware (Chronic 10/30/18) S/P Hardware removal Chronic anxiety (Chronic 06/22/13) Chronic emphysema syndrome (Chronic) Chronic pain in right shoulder (Chronic 11/20/13) Moderate protein malnutrition (Chronic 11/20/13) Neck pain (Acute) Irritable bowel syndrome with diarrhea (Chronic) History of tobacco abuse (Chronic) Anxiety (Chronic) Medical History Acute exacerbation of chronic obstructive pulmonary disease (COPD) C. difficile colitis Cervical neck pain with evidence of disc disease (06/22/13) Contusion of right knee, initial encounter DNI (do not intubate) DNR (do not resuscitate) Ongoing leg pain continue nSaid prn tramadol see surgeon next week consider topical analgesic on surrounding skin Pneumothorax, spontaneous, tension (04/11/10) POLST (Physician Orders for Life-Sustaining Treatment) Surgical History Appendectomy CHEST TUBE Extraction of cataract 06/05/15; LEFT EYE; DR. ARAUZ H/O section Hx of hysterectomy LAMINECTOMY CERVICAL SPINE Right femoral fracture (05/09/17) ORIF DOS: 05/10/17 Dr. Bob Family History Mother , at age 89, cardiac problems No problems noted. Father , at 81 Cancer Throat cancer Brother , at 71 Colon cancer Sister Diabetes DM2 Sister Diabetes DM2 Son No problems noted. Social History Smoking/Tobacco Use Status: Former Tobacco Use Quit Date: 07/17/14 Pack-years: 50 Tobacco: How many years used: 50 Smoking risk assessment performed?: Yes Alcohol Intake: former Year quit: 1979 Drug use: Never Substance use type: does not use Household members: none Housing: apartment Do you feel safe at home: Yes Do you feel safe in your relationship?: No Additional Social history: 16 years ago. Originally from [place], moved here to be near son and grand children. [place] House[place]. Enjoys contact with 4 grandchildren throughout the day (they are homeschooled and her home much of the time). Bedbound approximately 22 hours a day. On disability due to chronic back pain. 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 Approximate 75 pack year history of tobacco. No alcohol or illicit drug use endorsed. Time Spent with Patient Time Spent with Patient: <45 minutes Time was spent: preparing to see the patient(eg.review tests), ordering medications,tests, procedures, referring, communicating with other health pet care attendant (Preparing discharge instructions and summary), indepentently interpreting results, counseling the patient and care coordination
--- NOTE | 2022-09-16 16:22 | PDOC.CMDIS ---
Date of service: 09/16/22 Time of Service: 16:22 LACE Index Scoring Tool Questions: Length of Stay (in days): 3 Was the patient admitted via the E.D.?: Yes Comorbidities: Chronic Pulmonary Disease E.D. Visits: 3 Answers: Total Score: 11 Risk of Readmission: High Risk Care Management Discharge Plan Reason for Hospitalization: COPD Exacerbation Discharge Plan: Laney will return home with a resumption of home health services for nursing and OT. She will follow up with her community providers and plan of care and transport with family. Patient/Family Education Needs: Review of discharge instructions, limitations, activity, follow up plan. discuss Ask Me Three
[2022-09-17 23:40] LABS: Streptococcus Pneumoniae Ag, U Negative (Negative)
[2022-09-24 09:18] LABS: Legionella Ag Detection Urine Negative (Negative)
== END 2022-09-16 15:25 | disposition home health service (06) | DRG 190 ==
LOC: ER 21:43 → MS 21:52
PROVIDERS: Internal Medicine; Admitting Provider Family Medicine; Emergency Provider Student in an Organized Health Care Education/Training Program; PCP Family Medicine; Visit Provider Family Medicine
DX: J44.0 Chronic obstructive pulmonary disease with (acute) lower respiratory infection (principal); J15.9 Unspecified bacterial pneumonia; J96.21 Acute and chronic respiratory failure with hypoxia; J96.22 Acute and chronic respiratory failure with hypercapnia; Z68.1 Body mass index [BMI] 19.9 or less, adult; N17.9 Acute kidney failure, unspecified; E46 Unspecified protein-calorie malnutrition; E87.1 Hypo-osmolality and hyponatremia; J44.1 Chronic obstructive pulmonary disease with (acute) exacerbation; Z99.81 Dependence on supplemental oxygen; Z87.891 Personal history of nicotine dependence; Z66 Do not resuscitate; F32.A Depression, unspecified; G89.29 Other chronic pain; M47.817 Spondylosis without myelopathy or radiculopathy, lumbosacral region; F41.9 Anxiety disorder, unspecified; M54.50 Low back pain, unspecified; K58.0 Irritable bowel syndrome with diarrhea
CPT/HCPCS: 36415; 71275; 80053; 82805; 84145; 87040; 87449; 87637; 93005; 94640; 96374; 99285; 71045; 81003; 81015; 83605; 83880; 84484; 85025; 85610; 85730; 87899; 93010; 94660; 94664; 94667; 94760; 99222; 99231; 99232; 99238; J0456; J0696; J2930; J3490; J7512; J7620

== ENCOUNTER 2022-11-03 15:48 | Emergency (ER) | payer MEDICARE, MEDICAID, SELFPAY ==
[2022-11-03 15:48] VITALS: BP 125/65; PULSE 88; RESP 20; TEMP 37.9; O2SAT 83
--- NOTE | 2022-11-03 16:00 | DI.CT_ITS ---
Exam(s) CT CHEST/ABD/PEL W EXAM: CT CHEST/ABD/PEL W CLINICAL HISTORY: pain thorax post fall TECHNIQUE: Imaging Protocol: Axial computed tomography images with coronal and sagittal reformatted images were created and reviewed CONTRAST MATERIAL: Intravenous: Omnipaque 350 contrast volume:100 mL Oral: No COMPARISON: CT CT CHEST PE CTA from 09/14/2022 FINDINGS: The examination is limited due to patient motion artifact. CHEST: Tracheobronchial tree: Patent where visualized. Pulmonary parenchyma: There is a stable 4 mm nodule in the lateral aspect of the right upper lobe. O pacities in the lung apices appears stable. This may represent scarring. There is also stable pleur al thickening involving the right major fissure. There is a nodular opacity in the lateral aspect of the left lingula which is better appreciated on the current examination. There is a new small right pleural effusion and tiny left pleural effusion. Subjacent atelectasis is seen in the lung bases bi laterally, right greater than left. Visualized thyroid gland: Unremarkable. Mediastinum and Airam: Stable mildly prominent mediastinal lymph nodes. The esophagus is unremarkable . Pleura: No pneumothorax. Heart: Cardiomegaly. This predominantly involves the right atrium. No coronary artery calcification s are seen. No pericardial effusion. Pulmonary arteries: The peripheral pulmonary arteries are not well opacified but no central or segmen li pulmonary embolus is seen. Aorta: Thoracic aorta non-dilated. Atherosclerosis. No evidence of dissection. Lymph nodes: No significant axillary adenopathy. Soft tissues: Unremarkable. Bones:Within normal limits for the patient's age. ABDOMEN: Liver: There is again seen a heterogeneous enhancement pattern of the liver. There is periportal lora ma. There are few tiny hypodensities in the liver there are too small for further characterization. No discrete suspicious hepatic masses present. Portal, Superior Mesenteric, and Splenic Veins: Unremarkable. Gallbladder and Biliary Tract: There are no stones present. Dayna cholecystic fluid is seen. The com mon duct measures 9 mm. Pancreas: Normal density, no abnormal calcifications or inflammatory process. Spleen: Normal. Adrenals: No masses seen. Kidneys: Normal size, contour and axis. No radiodense stones or obstructive uropathy. No masses seen. Abdominal Aorta: Abdominal portion non-dilated. Atherosclerosis. Bowel: No obstruction or bowel wall thickening. No evidence of appendicitis. Peritoneal Cavity: No ascites, collection or mesenteric inflammatory response. No free air. Lymph Nodes: Within normal limits. Bones: Within normal limits for the patient's age. Soft Tissues: Unremarkable. PELVIS: Bladder: Symmetric distention, no gross wall thickening. Reproductive Organs: Status post hysterectomy. Lymph Nodes: Within normal limits. Bones: Within normal limits. There are old compression deformities seen at T11, T12 and L2. No acute fracture is identified. IMPRESSION: 1. No acute fracture. 2. New small bilateral pleural effusions and subjacent atelectasis. No pneumothorax. 3. Otherwise, stable findings in the chest from 09/14/2022. 4. New pericholecystic fluid since the CT scan of the chest from 09/14/2022. No stones are seen. The re is periportal edema. Gallbladder ultrasound may be obtained for further evaluation. 5. No acute abdominal or pelvic organ injury. 6. Findings were discussed with Geovanna Mcintyre at 5:52 p.m. on 11/03/2022. RADIATION DOSE DELIVERED: 1,000.27mGy.cm Total DLP DATA REPOSITORY: All CT scans at this facility are submitted to the National Radiology Data Registry (NRDR) Dose Index Registry (DIR) with the [employer] (A[employer]). RADIATION OPTIMIZATION: All CT scans at this facility use at least one of these dose optimization te chniques: automated exposure control; mA and/or kV adjustment per patient size (includes targeted exa ms where dose is matched to clinical indication); or iterative reconstruction.
--- NOTE | 2022-11-03 16:00 | DI.CT_ITS ---
Exam(s) CT HEAD CERVICAL SPINE WO EXAM: CT HEAD CERVICAL SPINE WO CLINICAL HISTORY: fall, nausea, vomiting, cervicalgia. TECHNIQUE: Imaging Protocol: Axial computed tomography images with coronal and sagittal reformatted images were created and reviewed COMPARISON: CT HEAD WITHOUT CONTRAST from 10/05/[address] CHEST PE CTA from 09/14/2022 FINDINGS: The examination is limited due to patient motion artifact. CT Head: Ventricles and Extra axial spaces: Normal in size and morphology for the patient's age. Hemorrhage: None. Cerebral parenchyma: There is no evidence of an acute territorial infarct. There are areas of decrea sed attenuation consistent with small vessel ischemic disease. Midline shift: None. Brainstem/Cerebellum: Normal. Calvarium: Normal. Visualized Paranasal sinuses/Mastoids: Clear. Soft Tissues: Unremarkable. CT Cervical Spine: Bones: No acute fracture or subluxation. There is reversal of the normal cervical lordosis. Moderate degenerative changes are seen throughout the cervical spine. 2-3 mm anterolisthesis of C4 on C5 is noted. This is likely degenerative. The lamina at C5 a nonunited which appears chronic. The border s are well corticated. Soft Tissues: Unremarkable. Lung Apices: Emphysematous changes are seen in the lung apices. Stable findings are seen in the lung apices. This may represent scarring. IMPRESSION: 1. No acute intracranial process. 2. No acute fracture or subluxation in the cervical spine. 3. Findings were discussed with the emergency department at 5:31 p.m. on 11/03/2022. RADIATION DOSE DELIVERED: 1,192.5mGy.cm Total DLP DATA REPOSITORY: All CT scans at this facility are submitted to the National Radiology Data Registry (NRDR) Dose Index Registry (DIR) with the [employer] (ACR). RADIATION OPTIMIZATION: All CT scans at this facility use at least one of these dose optimization te chniques: automated exposure control; mA and/or kV adjustment per patient size (includes targeted exa ms where dose is matched to clinical indication); or iterative reconstruction.
--- NOTE | 2022-11-03 16:00 | RT.EKG_ITS ---
APPROVED REPORT Exam: Resting ECG Reason for Exam: weakness Patient Location: E HR:81 bpm ECG Measurements Heart Rate 81 AXIS WA 152 P 77 QRSd 74 QRS 60 QT 399 T 40 QTc 464 Conclusion Sinus rhythm...normal P axis, V-rate 60- 99 Probable left atrial enlargement...P >50mS, <-0.10mV V1 Nonspecific T abnormalities, anterior leads...T <-0.10mV, V2-V4
[2022-11-03 16:07] VITALS: BP 112/49; PULSE 82; RESP 20; O2SAT 93
[2022-11-03] MEDS: Ondansetron 4 MG/2 ML VIAL IVP (16:27)
[2022-11-03] MEDS: Normal Saline 500 ML IV (16:27)
[2022-11-03] MEDS: fentaNYL 100 MCG/2 ML VIAL 50 MCG IVP ×2 (16:27→17:40)
[2022-11-03] MEDS: Albuterol/Ipratropium 3 ML UPD VIAL UPD (16:30)
[2022-11-03 16:31] LABS: Abs Immature Grans 0.02 10^3/uL (0.0-0.06); Absolute Basophil Count 0.03 10^3/uL (0.0-0.2); Absolute Eosinophil Count 0.12 10^3/uL (0.0-0.7); Absolute Lymphocyte Count 1.14 10^3/uL (1.2-3.4); Absolute Neutrophil Count 4.11 10^3/uL (1.2-6.7); Basophils % 0.5; HCT 29.2 % (36.0-46.0); HGB 8.7 g/dL (11.2-15.7); Immature Grans % 0.3; Lymphocytes % 19.3; MCH 24.9 pg (27.0-33.0); MCHC 29.8 % (32.0-36.0); MCV 83 fL (80-95); MPV 9.1 fL (8.0-11.0); Monocytes % 8.4; Neutrophils % 69.5; Platelet Count 213 10^3/uL (130-400); RDW 15.1 % (11.7-14.6); RDW-SD 45.4 fL; WBC 5.92 10^3/uL (4.4-10.8)
[2022-11-03 16:47] LABS: ALT 20 U/L (14-59); AST 19 U/L (15-37); Albumin 3.4 g/dL (3.4-5.0); Alkaline Phosphatase 96 U/L (46-116); Anion Gap 1.3 mmol/L (3-11); BUN 12 mg/dL (7-18); Bilirubin, Total 0.3 mg/dL (0.2-1.0); CO2 35.7 mmol/L (21.0-32.0); CREATININE 0.8 mg/dL (0.55-1.02); Calcium 8.2 mg/dL (8.5-10.1); Chloride 93 mmol/L (98-107); Estimated GFR 75.84 (mL/min/1.73m2); Glucose 124 mg/dL (74-106); Lipase 44 U/L (16-77); Potassium 4.3 mmol/L (3.5-5.1); Sodium 130 mmol/L (136-145); Total Protein 6.5 g/dL (6.4-8.2)
[2022-11-03 16:53] LABS: Diff Comment RBC Morph Reviewed
[2022-11-03 16:54] LABS: Hypochromasia 1+; Polychromasia Present
[2022-11-03] MEDS: Omnipaque 350 MG/ML 100 ML BTL IJ (16:56)
[2022-11-03] MEDS: Normal Saline - Diluent 50 ML VIAL IJ (16:56)
[2022-11-03] MEDS: Normal Saline Flush 10 ML SYR IVP (16:58)
[2022-11-03 17:00] VITALS: BP 114/72; PULSE 64; RESP 20; O2SAT 90
--- NOTE | 2022-11-03 17:29 | ED.GENADUL_ITS ---
Discharge Plan Disposition Patient Disposition: Home Discharge Details Clinical Impression: Myalgia, Iron deficiency anemia, Fall Primary Care Provider: Ralph Rahman ED Provider: Geovanna Mcintyre Home Meds and New Rx's Prescriptions: New oxycodone 5 mg capsule 5 mg PO TID PRNQty: 10 0RF ferrous sulfate 325 mg (65 mg iron) tablet,delayed release (DR/EC) 325 mg PO DAILY Qty: 30 0RF Continued (DME) Oxygen Tank See Rx Instructions .ROUTE .MEDSUPPLY Qty: 1 Rx Instructions: As directed PreserVision AREDS-2 250-90-40-1 mg Capsule 2 cap PO DAILY sertraline 100 mg tablet 100 mg PO DAILY Qty: 90 3RF clonazepam 1 mg tablet 1 mg PO TID PRN (Reason: anxiety) Qty: 90 2RF Rx Instructions: dose increase 02/23/22 Combivent Respimat 20-100 mcg/actuation mist 1 puff inhalation Q6H Qty: 4 5RF diclofenac sodium 1 % gel 2 g topical QID PRN (Reason: pain) Qty: 100 1RF Rx Instructions: apply to single elbow, wrist or hand; for hand includes palm/fingers/back of hand mirtazapine 15 mg tablet 15 mg PO HS Qty: 90 3RF omeprazole 40 mg capsule,delayed release(DR/EC) 40 mg PO DAILY Qty: 30 5RF ipratropium-albuterol 0.5 mg-3 mg(2.5 mg base)/3 mL solution for nebulization 3 ml UPD TID Qty: 180 1RF acetaminophen 500 mg tablet 1,000 mg PO Q8H PRN (Reason: pain) Qty: 90 8RF gabapentin 100 mg capsule 100 - 200 mg PO TID Qty: 270 1RF Rx Instructions: increase to 200 mg TID as needed buprenorphine [Butrans] 15 mcg/hour patch weekly 1 patch transdermal Q7D Qty: 4 5RF sucralfate 1 gram tablet 1 g PO AC & HS Qty: 120 5RF naloxone [Narcan] 4 mg/actuation spray,non-aerosol 1 spray KELL Q2-3M PRN (Reason: opioid overdose) Qty: 2 0RF Rx Instructions: spray 1 dose into ONE nostril; alternate nostrils w each dose until help arrives Never used cholecalciferol (vitamin D3) [Vitamin D3] 2,000 unit Tablet 3,000 unit PO DAILY doxylamine succinate 25 mg Tablet 25 mg PO QHS PRN (Reason: Insomnia) calcium carbonate 600 mg calcium (1.5 gram) Tablet,Chewable 3 - 4 tab PO TID PRN PRN (Reason: Heartburn) cranberry extract-vitamin C 250-60 mg Capsule 1 cap PO DAILY Thermotabs 287-180-15 mg Tablet 1 tab PO BID Qty: 60 0RF Discharge Instructions Instructions: Musculoskeletal Pain (ED), Anemia (ED) Additional Instructions: I suspect you have iron deficiency anemia, it is important that you take iron daily, this may cause some constipation so you may want to take MiraLAX or Metam ucil It is very important that you follow-up with your doctor for repeat complete blood count next week You may take oxycodone sparingly, this can also cause constipation Increase your fluid hydration Take Tylenol 650 mg every 6 hours, do not exceed 3 g of Tylenol daily Use your walker with ambulation Recheck with your doctor in 2 to 3 days for reassessment and return earlier should you have new or worsening complaints Referrals: Ralph Rahman MD [Primary Care Provider] - Medical Decision Making 77-year-old female presenting with history of COPD and oxygen dependency after a fall with reported right scapular pain, CT head, neck, chest abdomen and pelvis was ordered secondary to complaints and comorbidities, these test do not show evidence of significant acute abnormality, specifically no tenderness in the right upper quadrant The results were discussed and interpreted by Dr. Lanier, radiologist Diagnostic labs are remarkable for anemia which is significantly worsened, although not requiring a transfusion and hemodynamically stable, I did order a TIBC and iron, she is quite iron deficient she will be started on iron and will need in a close outpatient CBC Patient received Zofran, morphine, and fluids with good effect We will also need to have sodium rechecked by her doctor, at slightly low 130 although patient does not endorse any new weakness I did a guaiac and it was Hemoccult negative without visible blood No abdominal tenderness, alert and oriented, ambulatory with steady gait, oxygen is 89%, this is on 2 L, this is her baseline Repeat temp of 37.2, no evidence of infectious etiology of patient's complaints, ambulatory with steady gait and request discharge home, several tablets of oxycodone administered for discharge Return precautions reviewed and patient expressed understanding HPI General Date/Time Provider Initiated Documentation: 11/03/22 15:50 . HPI Narrative: This 77-year-old female with history of COPD and oxygen dependency presents with report of mechanical fall 2 days ago. She states that her legs slipped out and she hit her back and neck on the corner of a toilet. She denies any additional injuries. She states she was able to get up and put her suppository light. She was actually ambulatory after. Secondary to worsening pain she presents here to the emergency department for assessment. She has any fever or chills. She denies any anterior chest pain or new shortness of breath. She states she has not had any new weakness or blood in stool. She denies any vision change. She has had 1 or 2 episodes of nausea and vomiting. This was yesterday reportedly. Denies any history of coagulopathy. Related Data Home Medications Medication Instructions Recorded Confirmed Oxygen #1 ea 12/12/18 11/03/22 naloxone 4 mg/actuation nasal 1 spray intranasal Q2-3M PRN 04/18/19 11/03/22 spray (Narcan) opioid overdose #2 ea cholecalciferol (vitamin D3) 50 3,000 unit PO DAILY 05/10/19 11/03/22 mcg (2,000 unit) tablet (Vitamin D3) vit C 250 mg-vit E 90 mg-zinc 40 2 cap PO DAILY 08/21/21 11/03/22 mg-copper 1 [id number] capsule (PreserVision AREDS-2) sodium chloride-potassium chloride 1 tab PO BID #60 tabs 01/31/22 11/03/22 287 mg-180 mg-15 mg tablet (Thermotabs) calcium carbonate 600 mg calcium 3 - 4 tab PO TID PRN PRN Heartburn 04/11/22 11/03/22 (1.5 gram) chewable tablet cranberry extract-vitamin C 250 1 cap PO DAILY 04/11/22 11/03/22 mg-60 mg capsule doxylamine succinate 25 mg tablet 25 mg PO QHS PRN Insomnia 04/11/22 11/03/22 diclofenac sodium 1 % topical gel 2 g topical QID PRN pain #100 grams 04/27/22 11/03/22 mirtazapine 15 mg tablet 15 mg PO HS #90 tabs 05/24/22 11/03/22 omeprazole 40 mg capsule,delayed 40 mg PO DAILY #30 caps 06/28/22 11/03/22 release clonazepam 1 mg tablet 1 mg PO TID PRN anxiety #90 tabs 08/04/22 11/03/22 ipratropium 20 mcg-albuterol 100 1 puff inhalation Q6H #4 grams 08/04/22 11/03/22 mcg/actuation mist for inhalation (Combivent Respimat) sertraline 100 mg tablet 100 mg PO DAILY #90 tab-caps 08/04/22 11/03/22 ipratropium 0.5 mg-albuterol 3 mg 3 ml UPD TID #180 mL 08/24/22 11/03/22 (2.5 mg base)/3 mL nebulization soln acetaminophen 500 mg tablet 1,000 mg PO Q8H PRN pain #90 tabs 10/06/22 11/03/22 gabapentin 100 mg capsule 100 - 200 mg PO TID #270 caps 10/13/22 11/03/22 buprenorphine 15 mcg/hour weekly 1 patch transdermal Q7D #4 ea 10/27/22 11/03/22 transdermal patch (Butrans) sucralfate 1 gram tablet 1 g PO AC & HS #120 tabs 10/27/22 11/03/22 ferrous sulfate 325 mg (65 mg 325 mg PO DAILY #30 tabs 11/03/22 iron) tablet,delayed release oxycodone 5 mg capsule 5 mg PO TID PRN #10 caps 11/03/22 Previous Rx's Medication Instructions Recorded naloxone 4 mg/actuation nasal 1 spray intranasal Q2-3M PRN 04/18/19 spray (Narcan) opioid overdose #2 ea sodium chloride-potassium chloride 1 tab PO BID #60 tabs 01/31/22 287 mg-180 mg-15 mg tablet (Thermotabs) diclofenac sodium 1 % topical gel 2 g topical QID PRN pain #100 grams 04/27/22 mirtazapine 15 mg tablet 15 mg PO HS #90 tabs 05/24/22 omeprazole 40 mg capsule,delayed 40 mg PO DAILY #30 caps 06/28/22 release clonazepam 1 mg tablet 1 mg PO TID PRN anxiety #90 tabs 08/04/22 ipratropium 20 mcg-albuterol 100 1 puff inhalation Q6H #4 grams 08/04/22 mcg/actuation mist for inhalation (Combivent Respimat) sertraline 100 mg tablet 100 mg PO DAILY #90 tab-caps 08/04/22 ipratropium 0.5 mg-albuterol 3 mg 3 ml UPD TID #180 mL 08/24/22 (2.5 mg base)/3 mL nebulization soln acetaminophen 500 mg tablet 1,000 mg PO Q8H PRN pain #90 tabs 10/06/22 gabapentin 100 mg capsule 100 - 200 mg PO TID #270 caps 10/13/22 buprenorphine 15 mcg/hour weekly 1 patch transdermal Q7D #4 ea 10/27/22 transdermal patch (Butrans) sucralfate 1 gram tablet 1 g PO AC & HS #120 tabs 10/27/22 ferrous sulfate 325 mg (65 mg 325 mg PO DAILY #30 tabs 11/03/22 iron) tablet,delayed release oxycodone 5 mg capsule 5 mg PO TID PRN #10 caps 11/03/22 Allergies Allergy/AdvReac Type Severity Reaction Status Date / Time No Known Allergies Allergy Verified 11/03/22 15:54 General Stated Complaint: Fall/Non TraumaCriteria MCKAYLA: 3 PFSH All Active Problems (Updated 11/03/22 @ 18:41 by ELIAZAR Elkins) Myalgia (Acute) Iron deficiency anemia (Acute) Fall (Acute) COPD exacerbation (Acute) Advanced care planning/counseling discussion (Acute) Pneumonia (Acute) Diarrhea (Acute) History of Clostridioides difficile colitis (Acute) Bilateral pneumonia (Acute) LLL pneumonia (Acute ~03/30/18) Acute exacerbation of chronic obstructive pulmonary disease (Acute) Dependence on supplemental oxygen (Acute) Right shoulder pain (Acute) Abnormal weight loss (Acute) Chronic respiratory failure with hypercapnia (Acute) Palliative care patient (Acute) Depression (Chronic) Protein calorie malnutrition (Acute) Chronic pain (Chronic) TERESA (acute kidney injury) (Acute) Acute on chronic respiratory failure with hypoxia and hypercapnia (Acute) Hyponatremia (Chronic) Epigastric pain (Acute) COPD with acute exacerbation (Acute) Odynophagia (Acute) GERD (gastroesophageal reflux disease) (Chronic) Chronic obstructive pulmonary disease (Chronic) Lumbosacral spondylosis without myelopathy (Acute) Fibromyalgia (Acute) Fall (Acute) Low back pain (Acute) Discharge planning issues (Acute) T12 compression fracture (Acute) Hemoptysis (Acute) History of cataract removal with insertion of prosthetic lens (Acute 06/05/15) Status post appendectomy (Acute) Status post laminectomy (Acute) Pain from implanted hardware (Chronic 10/30/18) S/P Hardware removal Chronic anxiety (Chronic 06/22/13) Chronic emphysema syndrome (Chronic) Chronic pain in right shoulder (Chronic 11/20/13) Moderate protein malnutrition (Chronic 11/20/13) Neck pain (Acute) Irritable bowel syndrome with diarrhea (Chronic) History of tobacco abuse (Chronic) Anxiety (Chronic) Medical History Acute exacerbation of chronic obstructive pulmonary disease (COPD) C. difficile colitis Cervical neck pain with evidence of disc disease (06/22/13) Contusion of right knee, initial encounter DNI (do not intubate) DNR (do not resuscitate) Ongoing leg pain continue nSaid prn tramadol see surgeon next week consider topical analgesic on surrounding skin Pneumothorax, spontaneous, tension (04/11/10) POLST (Physician Orders for Life-Sustaining Treatment) Surgical History Appendectomy CHEST TUBE Extraction of cataract 06/05/15; LEFT EYE; DR. ARAUZ H/O section Hx of hysterectomy LAMINECTOMY CERVICAL SPINE Right femoral fracture (05/09/17) ORIF DOS: 05/10/17 Dr. Bob Family History Mother , at age 89, cardiac problems No problems noted. Father , at 81 Cancer Throat cancer Brother , at 71 Colon cancer Sister Diabetes DM2 Sister Diabetes DM2 Son No problems noted. Social History Smoking/Tobacco Use Status: Former Tobacco Use Quit Date: 07/17/14 Pack-years: 50 Tobacco: How many years used: 50 Smoking risk assessment performed?: Yes Alcohol Intake: former Year quit: 1979 Drug use: Never Substance use type: does not use Household members: none Housing: apartment Do you feel safe at home: Yes Do you feel safe in your relationship?: No Additional Social history: 16 years ago. Originally from [place], moved here to be near son and grand children. [place] House[place]. Enjoys contact with 4 grandchildren throughout the day (they are homeschooled and her home much of the time). Bedbound approximately 22 hours a day. On disability due to chronic back pain. 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 Approximate 75 pack year history of tobacco. No alcohol or illicit drug use endorsed. Course Vital Signs Vital signs: Vital Signs Temperature 37.9 C H 11/03/22 15:48 Pulse 88 11/03/22 15:48 Respiratory Rate 20 11/03/22 15:48 Blood Pressure 125/65 11/03/22 15:48 Pulse Oximetry 83 L 11/03/22 15:48 Temperature 37.9 C H 11/03/22 15:48 Temperature Source Skin 11/03/22 15:48 Pulse 82 11/03/22 16:07 Respiratory Rate 20 11/03/22 16:07 Respiratory Effort Normal 11/03/22 16:00 Blood Pressure 112/49 L 11/03/22 16:07 Pulse Oximetry 93 11/03/22 16:07 Oxygen Delivery Method Nasal Cannula 11/03/22 16:07 Oxygen Flow Rate 2.5 11/03/22 16:07 Pain Level 6 11/03/22 16:27 Lab/Test Results Lab/Test Results: Laboratory Tests Range/Units 11/03/22 11/03/22 11/03/22 16:00 16:00 16:00 WBC (4.4-10.8) 10^3/uL 5.92 RBC (3.93-5.22) 10^6/uL 3.50 L Hgb (11.2-15.7) g/dL 8.7 L Hct (36.0-46.0) % 29.2 L MCV (80-95) fL 83 MCH (27.0-33.0) pg 24.9 L MCHC (32.0-36.0) % 29.8 L RDW (11.7-14.6) % 15.1 H Plt Count (130-400) 10^3/uL 213 MPV (8.0-11.0) fL 9.1 Immature Gran % 0.3 Neutrophils % 69.5 Lymphocytes % 19.3 Monocytes % 8.4 Eosinophils % 2.0 Basophils % 0.5 Nucleated RBC % (0.0-0.3) % 0.0 Absolute Neutrophils (1.2-6.7) 10^3/uL 4.11 Absolute Lymphocytes (1.2-3.4) 10^3/uL 1.14 L Absolute Monocytes (0.1-0.8) 10^3/uL 0.50 Absolute Eosinophils (0.0-0.7) 10^3/uL 0.12 Absolute Basophils (0.0-0.2) 10^3/uL 0.03 RBC Morphology See Below Polychromasia Present Hypochromasia 1+ Sodium (136-145) mmol/L 130 L Potassium (3.5-5.1) mmol/L 4.3 Chloride (98-107) mmol/L 93 L Carbon Dioxide (21.0-32.0) mmol/L 35.7 H Anion Gap (3-11) mmol/L 1.3 L BUN (7-18) mg/dL 12 Creatinine (0.55-1.02) mg/dL 0.8 Est GFR (CKD-EPI 2020) (mL/min/1.73m2) 75.84 Glucose (74-106) mg/dL 124 H Calcium (8.5-10.1) mg/dL 8.2 L Total Bilirubin (0.2-1.0) mg/dL 0.3 AST (15-37) U/L 19 ALT (14-59) U/L 20 Alkaline Phosphatase (46-116) U/L 96 Total Protein (6.4-8.2) g/dL 6.5 Albumin (3.4-5.0) g/dL 3.4 Lipase (16-77) U/L 44 Patient ABO/Rh O Positive Antibody Screen NEGATIVE
[2022-11-03 18:06] VITALS: BP 106/60; PULSE 66; RESP 20; O2SAT 89
[2022-11-03 18:19] LABS: Reticulocyte 1.8 % (0.5-2.4)
[2022-11-03 18:25] LABS: Iron 16 ug/dL (50-170); Total Iron Binding Capacity 442 ug/dL (250-450); Transferrin Sat 4 % (15-50)
--- NOTE | 2022-11-03 18:43 | NUR.NOTE ---
Nursing Note: referred to pcp
[2022-11-03 19:03] LABS: Bilirubin Negative (Negative); Blood Trace-lysed (Negative); Clarity Clear (Clear); Glucose Negative (Negative); Ketones Negative (Negative); Leukocyte Esterase Negative (Negative); Nitrite Negative (Negative); Specific Gravity <= 1.005 (1.005-1.025); Urobilinogen 0.2 mg/dL (Up to 0.2)
[2022-11-03 19:11] LABS: Bacteria Negative HPF (Negative); C & S Indicated? No; Casts Negative LPF (Negative); Crystals Negative HPF (Negative); Epithelial Cells Few HPF (Negative); Mucus Negative (Negative); RBC 0-2 HPF (0-2); WBC 0-2 HPF (0-5)
[2022-11-03 19:15] VITALS: BP 110/56; PULSE 64; RESP 20; O2SAT 92
== END 2022-11-03 19:51 | disposition home or self-care (01) ==
PROVIDERS: Emergency Provider Physician Assistant; PCP Family Medicine
DX: M79.10 Myalgia, unspecified site (principal); M25.511 Pain in right shoulder; D50.9 Iron deficiency anemia, unspecified; J90 Pleural effusion, not elsewhere classified; R94.31 Abnormal electrocardiogram [ECG] [EKG]; J44.9 Chronic obstructive pulmonary disease, unspecified; Z99.81 Dependence on supplemental oxygen; W18.39XA Other fall on same level, initial encounter; Y93.89 Activity, other specified; Y92.012 Bathroom of single-family (private) house as the place of occurrence of the external cause; Y99.9 Unspecified external cause status
CPT/HCPCS: 36415; 74177; 80053; 83690; 86850; 86900; 86901; 93005; 94640; 96361; 96374; 96375; 96376; 99285; 70450; 71260; 72125; 81003; 81015; 83540; 83550; 85025; 85045; 93010; 99284; J2405; J3010; J3490; J7620

== ENCOUNTER 2022-11-04 22:22 | Emergency (ER) | payer MEDICARE, MEDICAID, SELFPAY ==
[2022-11-04] VITALS (11 sets, daily range): BP systolic 104–118; BP diastolic 42–84; PULSE 81–90; RESP 11–24; TEMP 37.3; O2SAT 88–100
--- NOTE | 2022-11-04 22:15 | RT.EKG_ITS ---
APPROVED REPORT Exam: Resting ECG Reason for Exam: shortness of breath Patient Location: E HR:84 bpm ECG Measurements Heart Rate 84 AXIS MN 137 P 74 QRSd 82 QRS 67 QT 375 T 35 QTc 443 Conclusion Sinus rhythm...normal P axis, V-rate 60- 99 Probable left atrial enlargement...P >50mS, <-0.10mV V1
--- NOTE | 2022-11-04 22:16 | DI.RAD_ITS ---
Exam(s) XR CHEST 1V IN DI DEPT EXAM: XR CHEST 1V IN DI DEPT CLINICAL HISTORY: shortness of breath TECHNIQUE: 2D digital imaging was performed. COMPARISON: CR,XR XR PORTABLE CHEST AP from 09/13/[address] CHEST/ABD/PEL W from 11/03/2022 FINDINGS: LUNGS: Fibrotic changes. No focal infiltrate. No pleural abnormality seen. HEART: Enlarged, unchanged. AORTA: Normal diameter. BONES: Unremarkable for age. Soft tissues: Unremarkable. IMPRESSION: No acute findings. DATA REPOSITORY: RADIATION DOSE DELIVERED:
--- NOTE | 2022-11-04 22:45 | DI.CT_ITS ---
Exam(s) CT THORACIC LUMBAR SPINE WO EXAM: CT THORACIC LUMBAR SPINE WO CLINICAL HISTORY: back pain. TECHNIQUE: Imaging Protocol: Axial, coronal and sagittal images were reconstructed utilizing bone pat lawton.. COMPARISON: CT CT THORACIC SPINE WO from 04/17/[address] CHEST/ABD/PEL W from 11/03/2022 CR,XR XR CHEST 1V IN DI DEPT from 11/04/2022 FINDINGS: Thoracic spine: Bones: Stable appearance of T10, T11 and T12 mild compression fractures. Stable appearance of mild r etropulsion of the superior endplate at T12 causing mild narrowing of the central canal in AP dimensi on. No acute fractures are seen. Mild scoliosis. Soft tissues: The soft tissues of the chest are unremarkable. Tiny right pleural effusion, similar to the previous day's examination. Trace left pleural effusion, unchanged. Emphysematous changes noted in the lungs. Lumbar spine: No acute fracture is identified. Stable mild compression fracture of the superior endp late L2. Mild retropulsion of superior endplate. Mild narrowing of the AP dimension of the canal. Degenerative disc changes and facet degenerative changes are present, greatest at L4-5 causing modera te central canal stenosis and bilateral neural foraminal narrowing.. Soft tissues: There is no large disc herniation. No paraspinal hematoma. The aorta calcified and no rmal in diameter. IMPRESSION: No acute abnormality of the thoracic or lumbar spine. Stable lower thoracic and upper lumbar compression fractures. RADIATION DOSE DELIVERED: Total DLP DATA REPOSITORY: All CT scans at this facility are submitted to the National Radiology Data Registry (NRDR) Dose Index Registry (DIR) with the [employer] (A[employer]). RADIATION OPTIMIZATION: All CT scans at this facility use at least one of these dose optimization te chniques: automated exposure control; mA and/or kV adjustment per patient size (includes targeted exa ms where dose is matched to clinical indication); or iterative reconstruction.
--- NOTE | 2022-11-04 22:47 | W.ED.GENAD ---
"Discharge Plan Disposition Patient Disposition: Home Condition: Stable Discharge Details Clinical Impression: Back pain, Shortness of breath Primary Care Provider: Ralph Rahman ED Provider: Ross Perales Home Meds and New Rx's Prescriptions: New prednisone 20 mg tablet 60 mg PO DAILY 4 Days Qty: 12 0RF furosemide [Lasix] 20 mg tablet 20 mg PO DAILY Qty: 14 0RF Continued (DME) Oxygen Tank See Rx Instructions .ROUTE .MEDSUPPLY Qty: 1 Rx Instructions: As directed PreserVision AREDS-2 250-90-40-1 mg Capsule 2 cap PO DAILY sertraline 100 mg tablet 100 mg PO DAILY Qty: 90 3RF clonazepam 1 mg tablet 1 mg PO TID PRN (Reason: anxiety) Qty: 90 2RF Rx Instructions: dose increase 02/23/22 Combivent Respimat 20-100 mcg/actuation mist 1 puff inhalation Q6H Qty: 4 5RF diclofenac sodium 1 % gel 2 g topical QID PRN (Reason: pain) Qty: 100 1RF Rx Instructions: apply to single elbow, wrist or hand; for hand includes palm/fingers/back of hand mirtazapine 15 mg tablet 15 mg PO HS Qty: 90 3RF omeprazole 40 mg capsule,delayed release(DR/EC) 40 mg PO DAILY Qty: 30 5RF ipratropium-albuterol 0.5 mg-3 mg(2.5 mg base)/3 mL solution for nebulization 3 ml UPD TID Qty: 180 1RF acetaminophen 500 mg tablet 1,000 mg PO Q8H PRN (Reason: pain) Qty: 90 8RF gabapentin 100 mg capsule 100 - 200 mg PO TID Qty: 270 1RF Rx Instructions: increase to 200 mg TID as needed buprenorphine [Butrans] 15 mcg/hour patch weekly 1 patch transdermal Q7D Qty: 4 5RF sucralfate 1 gram tablet 1 g PO AC & HS Qty: 120 5RF naloxone [Narcan] 4 mg/actuation spray,non-aerosol 1 spray KELL Q2-3M PRN (Reason: opioid overdose) Qty: 2 0RF Rx Instructions: spray 1 dose into ONE nostril; alternate nostrils w each dose until help arrives Never used cholecalciferol (vitamin D3) [Vitamin D3] 2,000 unit Tablet 3,000 unit PO DAILY doxylamine succinate 25 mg Tablet 25 mg PO QHS PRN (Reason: Insomnia) calcium carbonate 600 mg calcium (1.5 gram) Tablet,Chewable 3 - 4 tab PO TID PRN PRN (Reason: Heartburn) cranberry extract-vitamin C 250-60 mg Capsule 1 cap PO DAILY oxycodone 5 mg capsule 5 mg PO TID PRNQty: 10 0RF ferrous sulfate 325 mg (65 mg iron) tablet,delayed release (DR/EC) 325 mg PO DAILY Qty: 30 0RF Thermotabs 287-180-15 mg Tablet 1 tab PO BID Qty: 60 0RF Discharge Instructions Instructions: Back Pain (ED) Additional Instructions: Follow up with your primary care provider within 1-2 weeks and discuss if you should continue to take the lasix if you feel more ill, have severe worsening shortness of breath or fevers return to the emergency department Medical Decision Making 77 yo female with oxygen dependent copd, gerd, fibromyalgia, who comes in with cc back pain. She apparently had a fall a few days ago and hit her back on a toilet, was seen yesterday and had ct head/c spine/chest/abd/pelvis without significant acute traumatic findings. She took an oxycodone today and per ems report that they got from family she was altered and wasn't wearing her oxygen when first responders arrived. She arrives caox4 speaking clearly. She denies chest pain, abdomen pain, head or neck pain. She does have some dyspnea but is not sure if it's changed from baseline. She has tenderness with palpation to the lower thoracic and upper lumbar spines without palpable deformities, soft abdomen, wheezing is at the apices bilaterally, diminished at the bases with . Suspect musculoskeletal back pain but will evaluate for possible compression fx with ct thoracic and lumbar spine and obtain ekg/troponin, cbc, cmp, probnp and monitor and give a dose of methylprednisolone and duoneb. pt with mild acidosis, mild increase in her K, mild increase in her troponin, her probnp is elevated, is not on a diuretic, CT without acute findings other then small right pleural effusion, suspect she has a component of chf. She has no chest pain. she is 97% on room air, heart rate of 87, 93% on her home o2 and clear lungs now. She is speaking in full sentences, caox4. I recommended observation admission which she declined. She has decision making capacity and understands my reasoning for want to admit her including trending her troponins, monitoring her electrolytes and vitals and she still doesn't want admission. She states she is dnr/dni and doesn't want significant interventions done and understands if she worsens she could and states she has accepted she could possibly pass at any time. Given these are her wishes do not feel she needs to sign out AMA. She is willing to trial lasix so will provide a dose here and a short course until she can see her pcp. She will return if she wants further testing or interventions. Differential Diagnosis Differential Diagnosis: compression fracture, fibromyalgia Medical Records Medical records reviewed: Yes I reviewed the patient's medical records. Lab Data Lab results reviewed: Yes I reviewed the patient's lab results. ECG Data Attestation: I personally reviewed and interpreted this ECG (s) as follows: Prior ECG tracings: available for review Interpretation: sinus rate of 84 pr 137 no stemi HPI General Mode of arrival: EMS. Date/Time Provider Initiated Documentation: 11/04/22 22:36. Limitations to Documentation: no limitations. Information obtained by: patient. History of Present Illness 77 year old F presents to the emergency department with the chief complaint of back pain, described as moderate, Patient started experiencing this month(s) (1) and it has been constant. No relieving factors improve symptom(s), No exacerbating factors reported . Patient notes no other symptoms.. Patient did receive the following treatments prior to arrival, none Related Data Home Medications Medication Instructions Recorded Confirmed Oxygen #1 ea 12/12/18 11/04/22 naloxone 4 mg/actuation nasal 1 spray intranasal Q2-3M PRN 04/18/19 11/04/22 spray (Narcan) opioid overdose #2 ea cholecalciferol (vitamin D3) 50 3,000 unit PO DAILY 05/10/19 11/04/22 mcg (2,000 unit) tablet (Vitamin D3) vit C 250 mg-vit E 90 mg-zinc 40 2 cap PO DAILY 08/21/21 11/04/22 mg-copper 1 oz-[id number]-[id number] capsule (PreserVision AREDS-2) sodium chloride-potassium chloride 1 tab PO BID #60 tabs 01/31/22 11/04/22 287 mg-180 mg-15 mg tablet (Thermotabs) calcium carbonate 600 mg calcium 3 - 4 tab PO TID PRN PRN Heartburn 04/11/22 11/04/22 (1.5 gram) chewable tablet cranberry extract-vitamin C 250 1 cap PO DAILY 04/11/22 11/04/22 mg-60 mg capsule doxylamine succinate 25 mg tablet 25 mg PO QHS PRN Insomnia 04/11/22 11/04/22 diclofenac sodium 1 % topical gel 2 g topical QID PRN pain #100 grams 04/27/22 11/04/22 mirtazapine 15 mg tablet 15 mg PO HS #90 tabs 05/24/22 11/04/22 omeprazole 40 mg capsule,delayed 40 mg PO DAILY #30 caps 06/28/22 11/04/22 release clonazepam 1 mg tablet 1 mg PO TID PRN anxiety #90 tabs 08/04/22 11/04/22 ipratropium 20 mcg-albuterol 100 1 puff inhalation Q6H #4 grams 08/04/22 11/04/22 mcg/actuation mist for inhalation (Combivent Respimat) sertraline 100 mg tablet 100 mg PO DAILY #90 tab-caps 08/04/22 11/04/22 ipratropium 0.5 mg-albuterol 3 mg 3 ml UPD TID #180 mL 08/24/22 11/04/22 (2.5 mg base)/3 mL nebulization soln acetaminophen 500 mg tablet 1,000 mg PO Q8H PRN pain #90 tabs 10/06/22 11/04/22 gabapentin 100 mg capsule 100 - 200 mg PO TID #270 caps 10/13/22 11/04/22 buprenorphine 15 mcg/hour weekly 1 patch transdermal Q7D #4 ea 10/27/22 11/04/22 transdermal patch (Butrans) sucralfate 1 gram tablet 1 g PO AC & HS #120 tabs 10/27/22 11/04/22 ferrous sulfate 325 mg (65 mg 325 mg PO DAILY #30 tabs 11/03/22 11/04/22 iron) tablet,delayed release oxycodone 5 mg capsule 5 mg PO TID PRN #10 caps 11/03/22 11/04/22 furosemide 20 mg tablet (Lasix) 20 mg PO DAILY #14 tabs 11/05/22 prednisone 20 mg tablet 60 mg PO DAILY 4 days #12 tabs 11/05/22 Previous Rx's Medication Instructions Recorded naloxone 4 mg/actuation nasal 1 spray intranasal Q2-3M PRN 04/18/19 spray (Narcan) opioid overdose #2 ea sodium chloride-potassium chloride 1 tab PO BID #60 tabs 01/31/22 287 mg-180 mg-15 mg tablet (Thermotabs) diclofenac sodium 1 % topical gel 2 g topical QID PRN pain #100 grams 04/27/22 mirtazapine 15 mg tablet 15 mg PO HS #90 tabs 05/24/22 omeprazole 40 mg capsule,delayed 40 mg PO DAILY #30 caps 06/28/22 release clonazepam 1 mg tablet 1 mg PO TID PRN anxiety #90 tabs 08/04/22 ipratropium 20 mcg-albuterol 100 1 puff inhalation Q6H #4 grams 08/04/22 mcg/actuation mist for inhalation (Combivent Respimat) sertraline 100 mg tablet 100 mg PO DAILY #90 tab-caps 08/04/22 ipratropium 0.5 mg-albuterol 3 mg 3 ml UPD TID #180 mL 08/24/22 (2.5 mg base)/3 mL nebulization soln acetaminophen 500 mg tablet 1,000 mg PO Q8H PRN pain #90 tabs 10/06/22 gabapentin 100 mg capsule 100 - 200 mg PO TID #270 caps 10/13/22 buprenorphine 15 mcg/hour weekly 1 patch transdermal Q7D #4 ea 10/27/22 transdermal patch (Butrans) sucralfate 1 gram tablet 1 g PO AC & HS #120 tabs 10/27/22 ferrous sulfate 325 mg (65 mg 325 mg PO DAILY #30 tabs 11/03/22 iron) tablet,delayed release oxycodone 5 mg capsule 5 mg PO TID PRN #10 caps 11/03/22 furosemide 20 mg tablet (Lasix) 20 mg PO DAILY #14 tabs 11/05/22 prednisone 20 mg tablet 60 mg PO DAILY 4 days #12 tabs 11/05/22 Allergies Allergy/AdvReac Type Severity Reaction Status Date / Time No Known Allergies Allergy Verified 11/03/22 15:54 General Stated Complaint: SOB MCKAYLA: 3 Review of Systems All systems reviewed & are unremarkable except as noted in HPI and below Constitutional Constitutional: Denies chills, Denies fever(s) and Denies weakness Cardiovascular Cardiovascular: Denies chest pain and Denies dyspnea Respiratory Respiratory: Denies cough and Denies dyspnea Gastrointestinal Gastrointestinal: Denies abdominal pain, Denies nausea and Denies vomiting Integumentary/Breasts Skin/Breast: Denies rash Neurologic Neurologic: Denies weakness PFSH All Active Problems (Updated 11/05/22 @ 00:08 by Ross Perales MD) Myalgia (Acute) Iron deficiency anemia (Acute) Fall (Acute) Back pain (Acute) Shortness of breath (Acute) COPD exacerbation (Acute) Advanced care planning/counseling discussion (Acute) Pneumonia (Acute) Diarrhea (Acute) History of Clostridioides difficile colitis (Acute) Bilateral pneumonia (Acute) LLL pneumonia (Acute ~03/30/18) Acute exacerbation of chronic obstructive pulmonary disease (Acute) Dependence on supplemental oxygen (Acute) Right shoulder pain (Acute) Abnormal weight loss (Acute) Chronic respiratory failure with hypercapnia (Acute) Palliative care patient (Acute) Depression (Chronic) Protein calorie malnutrition (Acute) Chronic pain (Chronic) TERESA (acute kidney injury) (Acute) Acute on chronic respiratory failure with hypoxia and hypercapnia (Acute) Hyponatremia (Chronic) Epigastric pain (Acute) COPD with acute exacerbation (Acute) Odynophagia (Acute) GERD (gastroesophageal reflux disease) (Chronic) Chronic obstructive pulmonary disease (Chronic) Lumbosacral spondylosis without myelopathy (Acute) Fibromyalgia (Acute) Fall (Acute) Low back pain (Acute) Discharge planning issues (Acute) T12 compression fracture (Acute) Hemoptysis (Acute) History of cataract removal with insertion of prosthetic lens (Acute 06/05/15) Status post appendectomy (Acute) Status post laminectomy (Acute) Pain from implanted hardware (Chronic 10/30/18) S/P Hardware removal Chronic anxiety (Chronic 06/22/13) Chronic emphysema syndrome (Chronic) Chronic pain in right shoulder (Chronic 11/20/13) Moderate protein malnutrition (Chronic 11/20/13) Neck pain (Acute) Irritable bowel syndrome with diarrhea (Chronic) History of tobacco abuse (Chronic) Anxiety (Chronic) Medical History Acute exacerbation of chronic obstructive pulmonary disease (COPD) C. difficile colitis Cervical neck pain with evidence of disc disease (06/22/13) Contusion of right knee, initial encounter DNI (do not intubate) DNR (do not resuscitate) Ongoing leg pain continue nSaid prn tramadol see surgeon next week consider topical analgesic on surrounding skin Pneumothorax, spontaneous, tension (04/11/10) POLST (Physician Orders for Life-Sustaining Treatment) Surgical History Appendectomy CHEST TUBE Extraction of cataract 06/05/15; LEFT EYE; DR. ARAUZ H/O section Hx of hysterectomy LAMINECTOMY CERVICAL SPINE Right femoral fracture (05/09/17) ORIF DOS: 05/10/17 Dr. Bob Family History Mother , at age 89, cardiac problems No problems noted. Father , at 81 Cancer Throat cancer Brother , at 71 Colon cancer Sister Diabetes DM2 Sister Diabetes DM2 Son No problems noted. Social History Smoking/Tobacco Use Status: Former Tobacco Use Quit Date: 07/17/14 Pack-years: 50 Tobacco: How many years used: 50 Smoking risk assessment performed?: Yes Alcohol Intake: former Year quit: 1979 Drug use: Never Substance use type: does not use Household members: none Housing: apartment Do you feel safe at home: Yes Do you feel safe in your relationship?: No Additional Social history: 16 years ago. Originally from [place], moved here to be near son and grand children. [place] House[place]. Enjoys contact with 4 grandchildren throughout the day (they are homeschooled and her home much of the time). Bedbound approximately 22 hours a day. On disability due to chronic back pain. 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 Approximate 75 pack year history of tobacco. No alcohol or illicit drug use endorsed. Exam Const General: no acute distress Orientation: alert HENMT Head: normal to inspection Ears: external ears normal General nose exam: external nose normal Mouth: moist mucous membranes Eyes General: appearance normal, both eyes and all related structures Neck Neck: normal visual inspection Resp Effort & Inspection: normal respiratory effort and able to speak in complete sentences Auscultation: clear to auscultation bilaterally Cardio Rate: regular rate Heart Sounds: no murmurs GI Palpation: soft and nontender Back/Spine/Pelvis Back: no CVA tenderness Thoracic/Lumbar Spine: thoracic spinal tenderness and lumbar spinal tenderness Skin General skin exam: no rashes or lesions noted Neuro General: patient alert and patient oriented x3 Extrem General: normal to inspection Psych Mental Status: mental status grossly normal Course Vital Signs Vital signs: Vital Signs Temperature 37.3 C 11/04/22 22:22 Pulse 85 11/04/22 22:22 Respiratory Rate 18 11/04/22 22:22 Blood Pressure 104/84 11/04/22 22:22 Pulse Oximetry 88 L 11/04/22 22:22 Temperature 37.3 C 11/04/22 22:22 Temperature Source Temporal Artery Scan 11/04/22 22:22 Pulse 85 11/04/22 22:22 Respiratory Rate 18 11/04/22 22:22 Blood Pressure 104/84 11/04/22 22:22 Pulse Oximetry 88 L 11/04/22 22:22 Oxygen Delivery Method Nasal Cannula 11/04/22 22:22 Oxygen Flow Rate 4 11/04/22 22:22 Lab/Test Results Lab/Test Results: 11/04/22 22:17 Blood Blood Culture - Pending 11/04/22 22:17 Blood Blood Culture - Pending"
[2022-11-04 22:56] LABS: Abs Immature Grans 0.01 10^3/uL (0.0-0.06); Absolute Basophil Count 0.03 10^3/uL (0.0-0.2); Absolute Lymphocyte Count 0.48 10^3/uL (1.2-3.4); Absolute Monocyte Count 0.43 10^3/uL (0.1-0.8); Absolute Neutrophil Count 4.52 10^3/uL (1.2-6.7); BE (Venous) 4 mmol/L (-2-3); Basophils % 0.5; HCO3 (Venous) 32 mmol/L (23-28); HCT 34.9 % (36.0-46.0); HGB 9.9 g/dL (11.2-15.7); Immature Grans % 0.2; Lymphocytes % 8.8; MCH 24.6 pg (27.0-33.0); MCHC 28.4 % (32.0-36.0); MCV 87 fL (80-95); MPV 8.5 fL (8.0-11.0); Monocytes % 7.9; Neutrophils % 82.6; O2 Sat (Venous) 43 %; Platelet Count 233 10^3/uL (130-400); RBC 4.03 10^6/uL (3.93-5.22); RDW-SD 47.7 fL; TCO2 (Venous) 32 mmol/L (24-29); WBC 5.47 10^3/uL (4.4-10.8); pO2 (Venous) 28 mmHg
[2022-11-04 22:58] LABS: pCO2 (Venous) 83 mmHg (41-51)
[2022-11-04] MEDS: MORPHine 10 MG/ML VIAL 2 MG IVP (23:05)
[2022-11-04] MEDS: Lidocaine 5% Patch 1 PATCH TP (23:05)
[2022-11-04 23:12] LABS: INR 0.9 (0.9-1.1); PTT Activated 23.4 sec (21.5-31.9); Prothrombin Time 9.3 sec (9.3-11.0)
[2022-11-04 23:18] LABS: NT-proBNP 7779 pg/mL (<300)
[2022-11-04] MEDS: methylPREDNISolone SUCC 125 MG VIAL IVP (23:20)
[2022-11-04 23:23] LABS: Troponin I 62 ng/L (<or=60)
[2022-11-04] MEDS: Albuterol/Ipratropium 3 ML UPD VIAL UPD (23:25)
[2022-11-04 23:32] LABS: ALT 38 U/L (14-59); AST 48 U/L (15-37); Albumin 4.2 g/dL (3.4-5.0); Alkaline Phosphatase 111 U/L (46-116); Anion Gap 3.2 mmol/L (3-11); BUN 14 mg/dL (7-18); Bilirubin, Total 0.4 mg/dL (0.2-1.0); CO2 33.8 mmol/L (21.0-32.0); CREATININE 1.2 mg/dL (0.55-1.02); Calcium 8.9 mg/dL (8.5-10.1); Chloride 92 mmol/L (98-107); Estimated GFR 46.62 (mL/min/1.73m2); Glucose 145 mg/dL (74-106); Magnesium 2.2 mg/dL (1.8-2.4); Sodium 129 mmol/L (136-145); TSH (W/Ref FT4) 1.63 uIU/mL (0.36-3.74); Total Protein 7.8 g/dL (6.4-8.2)
[2022-11-04 23:34] LABS: Potassium 5.5 mmol/L (3.5-5.1)
--- NOTE | 2022-11-04 23:43 | DI.VRAD_ITS ---
PROCEDURE INFORMATION: Exam: XR Chest Exam date and time: 11/04/2022 11:15 PM Age: 77 years old Clinical indication: Shortness of breath TECHNIQUE: Imaging protocol: Radiologic exam of the chest. Views: 1 view. COMPARISON: CT CHEST/ABD/PEL W 11/03/2022 5:17 PM FINDINGS: Lungs: Chronic interstitial changes with no acute pulmonary infiltrate. No consolidation. Pleural spaces: Unremarkable. No pleural effusion. No pneumothorax. Heart/Mediastinum: Unremarkable. No cardiomegaly. Bones/joints: Unremarkable. IMPRESSION: No acute findings. Dictated and Authenticated by: Ross Gutierrez MD. Ordering:AMAN Hawkins MD
--- NOTE | 2022-11-04 23:45 | DI.VRAD_ITS ---
PROCEDURE INFORMATION: Exam: CT Thoracic Spine Without Contrast Exam date and time: 11/04/2022 11:10 PM Age: 77 years old Clinical indication: Pain and injury or trauma; Blunt trauma (contusions or hematomas); Low back pain; Pain in thoracic spine; Without myelpathy or radiculopathy; Injury details: Fall, back pain TECHNIQUE: Imaging protocol: Computed tomography of the thoracic spine without contrast. Radiation optimization: All CT scans at this facility use at least one of these dose optimization techniques: automated exposure control; mA and/or kV adjustment per patient size (includes targeted exams where dose is matched to clinical indication); or iterative reconstruction. COMPARISON: CT THORACIC SPINE WO 04/17/2019 11:50 AM FINDINGS: Bones/joints: Chronic appearing T11 and T12 vertebral body compression fractures with retropulsion causing mild canal stenosis. No acute fractures. T1-T2: No significant disc bulge or herniation. No severe spinal canal stenosis. No significant neural foraminal narrowing. T2-T3: No significant disc bulge or herniation. No severe spinal canal stenosis. No significant neural foraminal narrowing. T3-T4: No significant disc bulge or herniation. No severe spinal canal stenosis. No significant neural foraminal narrowing. T4-T5: No significant disc bulge or herniation. No severe spinal canal stenosis. No significant neural foraminal narrowing. T5-T6: No significant disc bulge or herniation. No severe spinal canal stenosis. No significant neural foraminal narrowing. T6-T7: No significant disc bulge or herniation. No severe spinal canal stenosis. No significant neural foraminal narrowing. T7-T8: No significant disc bulge or herniation. No severe spinal canal stenosis. No significant neural foraminal narrowing. T8-T9: No significant disc bulge or herniation. No severe spinal canal stenosis. No significant neural foraminal narrowing. T9-T10: No significant disc bulge or herniation. No severe spinal canal stenosis. No significant neural foraminal narrowing. T10-T11: No significant disc bulge or herniation. No severe spinal canal stenosis. No significant neural foraminal narrowing. T11-T12: No significant disc bulge or herniation. No severe spinal canal stenosis. No significant neural foraminal narrowing. T12-L1: No significant disc bulge or herniation. No severe spinal canal stenosis. No significant neural foraminal narrowing. Pleural spaces: Tiny right pleural effusion. IMPRESSION: Tiny right pleural effusion. PROCEDURE INFORMATION: Exam: CT Lumbar Spine Without Contrast Exam date and time: 11/04/2022 11:10 PM Age: 77 years old Clinical indication: Pain and injury or trauma; Blunt trauma (contusions or hematomas); Low back pain; Pain in thoracic spine; Without myelpathy or radiculopathy; Injury details: Fall, back pain TECHNIQUE: Imaging protocol: Computed tomography of the lumbar spine without contrast. Radiation optimization: All CT scans at this facility use at least one of these dose optimization techniques: automated exposure control; mA and/or kV adjustment per patient size (includes targeted exams where dose is matched to clinical indication); or iterative reconstruction. COMPARISON: CT LUMBAR SPINE SI JOINTS WO 04/15/2019 6:01 PM FINDINGS: Bones/joints: Chronic L2 vertebral body compression fracture with retropulsion causing mild canal stenosis. No acute fracture. L4-L5 predominant discogenic change with moderate canal and bilateral neural foraminal stenosis.. Soft tissues: Unremarkable. IMPRESSION: No acute finding. Dictated and Authenticated by: Ross Gutierrez MD. Ordering:AMAN Hawkins MD
[2022-11-04] MEDS: Furosemide 40 MG/4 ML VIAL IVP (23:55)
[2022-11-05] VITALS (42 sets, daily range): BP systolic 116–129; BP diastolic 49–66; PULSE 80–88; RESP 9–22; O2SAT 89–95
== END 2022-11-05 06:54 | disposition home or self-care (01) ==
PROVIDERS: Emergency Provider Emergency Medicine; PCP Family Medicine
DX: R06.00 Dyspnea, unspecified (principal); R06.02 Shortness of breath; M54.50 Low back pain, unspecified; M54.6 Pain in thoracic spine; W19.XXXA Unspecified fall, initial encounter; J44.9 Chronic obstructive pulmonary disease, unspecified; Z99.81 Dependence on supplemental oxygen; G89.29 Other chronic pain
CPT/HCPCS: 80053; 82805; 87040; 93005; 94640; 96374; 96375; 99285; 71045; 72128; 72131; 83735; 83880; 84443; 84484; 85025; 85610; 85730; 93010; J1940; J2270; J2930; J7620

== ENCOUNTER 2022-11-27 12:04 | Observation (INO) | payer MEDICARE, MEDICAID, SELFPAY ==
[2022-11-27] VITALS (84 sets, daily range): BP systolic 91–123; BP diastolic 29–51; PULSE 47–79; RESP 8–33; TEMP 36.7; O2SAT 55–87
--- NOTE | 2022-11-27 12:14 | ED.GENADUL_ITS ---
Discharge Plan Discharge Details Chief Complaint: AMS/LOC Primary Care Provider: Ralph Rahman ED Provider: Jose Francisco Polanco Home Meds and New Rx's Prescriptions: No Action (DME) Oxygen Tank See Rx Instructions .ROUTE .MEDSUPPLY Qty: 1 Rx Instructions: As directed PreserVision AREDS-2 250-90-40-1 mg Capsule 2 cap PO DAILY sertraline 100 mg tablet 100 mg PO DAILY Qty: 90 3RF clonazepam 1 mg tablet 1 mg PO TID PRN (Reason: anxiety) Qty: 90 2RF Rx Instructions: dose increase 02/23/22 Combivent Respimat 20-100 mcg/actuation mist 1 puff inhalation Q6H Qty: 4 5RF diclofenac sodium 1 % gel 2 g topical QID PRN (Reason: pain) Qty: 100 1RF Rx Instructions: apply to single elbow, wrist or hand; for hand includes palm/fingers/back of hand mirtazapine 15 mg tablet 15 mg PO HS Qty: 90 3RF omeprazole 40 mg capsule,delayed release(DR/EC) 40 mg PO DAILY Qty: 30 5RF ipratropium-albuterol 0.5 mg-3 mg(2.5 mg base)/3 mL solution for nebulization 3 ml UPD TID Qty: 180 1RF acetaminophen 500 mg tablet 1,000 mg PO Q8H PRN (Reason: pain) Qty: 90 8RF gabapentin 100 mg capsule 100 - 200 mg PO TID Qty: 270 1RF Rx Instructions: increase to 200 mg TID as needed buprenorphine [Butrans] 15 mcg/hour patch weekly 1 patch transdermal Q7D Qty: 4 5RF sucralfate 1 gram tablet 1 g PO AC & HS Qty: 120 5RF ibuprofen 200 mg tablet 600 mg PO Q8H PRN naloxone [Narcan] 4 mg/actuation spray,non-aerosol 1 spray KLEL Q2-3M PRN (Reason: opioid overdose) Qty: 2 0RF Rx Instructions: spray 1 dose into ONE nostril; alternate nostrils w each dose until help arrives Never used cholecalciferol (vitamin D3) [Vitamin D3] 2,000 unit Tablet 3,000 unit PO DAILY doxylamine succinate 25 mg Tablet 25 mg PO QHS PRN (Reason: Insomnia) calcium carbonate 600 mg calcium (1.5 gram) Tablet,Chewable 3 - 4 tab PO TID PRN PRN (Reason: Heartburn) cranberry extract-vitamin C 250-60 mg Capsule 1 cap PO DAILY ferrous sulfate 325 mg (65 mg iron) tablet,delayed release (DR/EC) 325 mg PO DAILY Qty: 30 0RF Thermotabs 287-180-15 mg Tablet 1 tab PO BID Qty: 60 0RF furosemide [Lasix] 20 mg tablet 20 mg PO DAILY Qty: 14 0RF Medical Decision Making Elderly lady with end-stage COPD presents to the emergency room with agonal respirations GCS of 3. Patient is DNR/DNI was confirmed. Patient was placed on supplemental oxygen. Chest x-ray and head CT were obtained which were unremarkable. EKG did not show any signs of ischemia. Negative troponin. Blood work otherwise unremarkable I discussed the patient's prognosis with the [id number] who was at the bedside. Patient will be admitted CAREER SERVICES OFFICER to the hospitalist service. Case discussed with hospitalist. HPI General Date/Time Provider Initiated Documentation: 11/27/22 12:14 . HPI Narrative: 77-year-old lady found in agonal respirations at home. Saturation 55 per EMS Patient arrives to the emergency department unresponsive. Pupils are reactive but she is not responsive. He does have a valid DNR/DNI on record. According to EMS fingerstick was over 200. Related Data Home Medications Medication Instructions Recorded Confirmed Oxygen #1 ea 12/12/18 11/19/22 naloxone 4 mg/actuation nasal 1 spray intranasal Q2-3M PRN 04/18/19 11/19/22 spray (Narcan) opioid overdose #2 ea cholecalciferol (vitamin D3) 50 3,000 unit PO DAILY 05/10/19 11/19/22 mcg (2,000 unit) tablet (Vitamin D3) vit C 250 mg-vit E 90 mg-zinc 40 2 cap PO DAILY 08/21/21 11/19/22 mg-copper 1 [id number] capsule (PreserVision AREDS-2) sodium chloride-potassium chloride 1 tab PO BID #60 tabs 01/31/22 11/19/22 287 mg-180 mg-15 mg tablet (Thermotabs) calcium carbonate 600 mg calcium 3 - 4 tab PO TID PRN PRN Heartburn 04/11/22 11/19/22 (1.5 gram) chewable tablet cranberry extract-vitamin C 250 1 cap PO DAILY 04/11/22 11/19/22 mg-60 mg capsule doxylamine succinate 25 mg tablet 25 mg PO QHS PRN Insomnia 04/11/22 11/19/22 diclofenac sodium 1 % topical gel 2 g topical QID PRN pain #100 grams 04/27/22 11/19/22 mirtazapine 15 mg tablet 15 mg PO HS #90 tabs 05/24/22 11/19/22 omeprazole 40 mg capsule,delayed 40 mg PO DAILY #30 caps 06/28/22 11/19/22 release clonazepam 1 mg tablet 1 mg PO TID PRN anxiety #90 tabs 08/04/22 11/19/22 ipratropium 20 mcg-albuterol 100 1 puff inhalation Q6H #4 grams 08/04/22 11/19/22 mcg/actuation mist for inhalation (Combivent Respimat) sertraline 100 mg tablet 100 mg PO DAILY #90 tab-caps 08/04/22 11/19/22 ipratropium 0.5 mg-albuterol 3 mg 3 ml UPD TID #180 mL 08/24/22 11/19/22 (2.5 mg base)/3 mL nebulization soln acetaminophen 500 mg tablet 1,000 mg PO Q8H PRN pain #90 tabs 10/06/22 11/19/22 gabapentin 100 mg capsule 100 - 200 mg PO TID #270 caps 10/13/22 11/19/22 buprenorphine 15 mcg/hour weekly 1 patch transdermal Q7D #4 ea 10/27/22 11/19/22 transdermal patch (Butrans) sucralfate 1 gram tablet 1 g PO AC & HS #120 tabs 10/27/22 11/19/22 ferrous sulfate 325 mg (65 mg 325 mg PO DAILY #30 tabs 11/03/22 11/19/22 iron) tablet,delayed release furosemide 20 mg tablet (Lasix) 20 mg PO DAILY #14 tabs 11/05/22 11/19/22 ibuprofen 200 mg tablet 600 mg PO Q8H PRN 11/10/22 11/19/22 Previous Rx's Medication Instructions Recorded naloxone 4 mg/actuation nasal 1 spray intranasal Q2-3M PRN 04/18/19 spray (Narcan) opioid overdose #2 ea sodium chloride-potassium chloride 1 tab PO BID #60 tabs 01/31/22 287 mg-180 mg-15 mg tablet (Thermotabs) diclofenac sodium 1 % topical gel 2 g topical QID PRN pain #100 grams 04/27/22 mirtazapine 15 mg tablet 15 mg PO HS #90 tabs 05/24/22 omeprazole 40 mg capsule,delayed 40 mg PO DAILY #30 caps 06/28/22 release clonazepam 1 mg tablet 1 mg PO TID PRN anxiety #90 tabs 08/04/22 ipratropium 20 mcg-albuterol 100 1 puff inhalation Q6H #4 grams 08/04/22 mcg/actuation mist for inhalation (Combivent Respimat) sertraline 100 mg tablet 100 mg PO DAILY #90 tab-caps 08/04/22 ipratropium 0.5 mg-albuterol 3 mg 3 ml UPD TID #180 mL 08/24/22 (2.5 mg base)/3 mL nebulization soln acetaminophen 500 mg tablet 1,000 mg PO Q8H PRN pain #90 tabs 10/06/22 gabapentin 100 mg capsule 100 - 200 mg PO TID #270 caps 10/13/22 buprenorphine 15 mcg/hour weekly 1 patch transdermal Q7D #4 ea 10/27/22 transdermal patch (Butrans) sucralfate 1 gram tablet 1 g PO AC & HS #120 tabs 10/27/22 ferrous sulfate 325 mg (65 mg 325 mg PO DAILY #30 tabs 11/03/22 iron) tablet,delayed release furosemide 20 mg tablet (Lasix) 20 mg PO DAILY #14 tabs 11/05/22 Allergies Allergy/AdvReac Type Severity Reaction Status Date / Time No Known Allergies Allergy Verified 11/03/22 15:54 General Stated Complaint: AMS/LOC MCKAYLA: 1 PFSH All Active Problems (Updated 11/05/22 @ 00:08 by Ross Perales MD) Myalgia (Acute) Iron deficiency anemia (Acute) Fall (Acute) Back pain (Acute) Shortness of breath (Acute) COPD exacerbation (Acute) Advanced care planning/counseling discussion (Acute) Pneumonia (Acute) Diarrhea (Acute) History of Clostridioides difficile colitis (Acute) Bilateral pneumonia (Acute) LLL pneumonia (Acute ~03/30/18) Acute exacerbation of chronic obstructive pulmonary disease (Acute) Dependence on supplemental oxygen (Acute) Right shoulder pain (Acute) Abnormal weight loss (Acute) Chronic respiratory failure with hypercapnia (Acute) Palliative care patient (Acute) Depression (Chronic) Protein calorie malnutrition (Acute) Chronic pain (Chronic) TERESA (acute kidney injury) (Acute) Acute on chronic respiratory failure with hypoxia and hypercapnia (Acute) Hyponatremia (Chronic) Epigastric pain (Acute) COPD with acute exacerbation (Acute) Odynophagia (Acute) GERD (gastroesophageal reflux disease) (Chronic) Chronic obstructive pulmonary disease (Chronic) Lumbosacral spondylosis without myelopathy (Acute) Fibromyalgia (Acute) Fall (Acute) Low back pain (Acute) Discharge planning issues (Acute) T12 compression fracture (Acute) Hemoptysis (Acute) History of cataract removal with insertion of prosthetic lens (Acute 06/05/15) Status post appendectomy (Acute) Status post laminectomy (Acute) Pain from implanted hardware (Chronic 10/30/18) S/P Hardware removal Chronic anxiety (Chronic 06/22/13) Chronic emphysema syndrome (Chronic) Chronic pain in right shoulder (Chronic 11/20/13) Moderate protein malnutrition (Chronic 11/20/13) Neck pain (Acute) Irritable bowel syndrome with diarrhea (Chronic) History of tobacco abuse (Chronic) Anxiety (Chronic) Medical History Acute exacerbation of chronic obstructive pulmonary disease (COPD) C. difficile colitis Cervical neck pain with evidence of disc disease (06/22/13) Contusion of right knee, initial encounter DNI (do not intubate) DNR (do not resuscitate) Ongoing leg pain continue nSaid prn tramadol see surgeon next week consider topical analgesic on surrounding skin Pneumothorax, spontaneous, tension (04/11/10) POLST (Physician Orders for Life-Sustaining Treatment) Surgical History Appendectomy CHEST TUBE Extraction of cataract 06/05/15; LEFT EYE; DR. ARAUZ H/O section Hx of hysterectomy LAMINECTOMY CERVICAL SPINE Right femoral fracture (05/09/17) ORIF DOS: 05/10/17 Dr. Bob Family History Mother , at age 89, cardiac problems No problems noted. Father , at 81 Cancer Throat cancer Brother , at 71 Colon cancer Sister Diabetes DM2 Sister Diabetes DM2 Son No problems noted. Social History Smoking/Tobacco Use Status: Former Tobacco Use Quit Date: 07/17/14 Pack-years: 50 Tobacco: How many years used: 50 Smoking risk assessment performed?: Yes Alcohol Intake: former Year quit: 1979 Drug use: Never Substance use type: does not use Household members: none Housing: apartment Do you feel safe at home: Yes Do you feel safe in your relationship?: No Additional Social history: 16 years ago. Originally from [place], moved here to be near son and grand children. [place]. Enjoys contact with 4 grandchildren throughout the day (they are homeschooled and her home much of the time). Bedbound approximately 22 hours a day. On disability due to chronic back pain. 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 Approximate 75 pack year history of tobacco. No alcohol or illicit drug use endorsed. Course Vital Signs Vital signs: Vital Signs Temperature 36.7 C 11/27/22 12:05 Pulse 79 11/27/22 12:05 Respiratory Rate 17 11/27/22 12:05 Pulse Oximetry 87 L 11/27/22 12:05 Temperature 36.7 C 11/27/22 12:05 Temperature Source Skin 11/27/22 12:05 Pulse 79 11/27/22 12:05 Respiratory Rate 17 11/27/22 12:05 Respiratory Effort Labored, Agonal 11/27/22 12:13 Blood Pressure Position Supine 11/27/22 12:05 Pulse Oximetry 87 L 11/27/22 12:05 Oxygen Delivery Method Room Air 11/27/22 12:05 Oxygen Flow Rate 0 11/27/22 12:05 Pain Level 0 11/27/22 12:05
--- NOTE | 2022-11-27 12:15 | DI.RAD_ITS ---
Exam(s) XR CHEST 1V IN DI DEPT EXAM: XR CHEST 1V IN DI DEPT CLINICAL HISTORY: Shortness of breath TECHNIQUE: 2D digital imaging was performed. COMPARISON: CR,XR XR PORTABLE CHEST AP from 09/13/[address] CHEST/ABD/PEL W from 11/03/2022 CR,XR XR CHEST 1V IN DI DEPT from 11/04/2022 FINDINGS: Exam is limited by under penetration at the lung bases and overlying monitoring leads. LUNGS: This pulmonary vascular prominence is when compared the previous exam. There may be tiny effu sions. The findings could represent CHF. Question of increased densities at the left lung base coul d represent asymmetric edema or infiltrate. There are underlying emphysematous and fibrotic changes. HEART: Normal size. AORTA: Normal diameter. BONES: Unremarkable for age. Soft tissues: Unremarkable. IMPRESSION: Question of CHF. Question of infiltrate versus asymmetric edema at the left lung base. DATA REPOSITORY: RADIATION DOSE DELIVERED:
[2022-11-27 12:30] LABS: Abs Immature Grans 0.15 10^3/uL (0.0-0.06); Absolute Basophil Count 0.05 10^3/uL (0.0-0.2); Basophils % 0.3; Eosinophils % 0.1; HCT 39.9 % (36.0-46.0); HGB 10.5 g/dL (11.2-15.7); Immature Grans % 0.9; Lymphocytes % 4.8; MCH 23.1 pg (27.0-33.0); MCHC 26.3 % (32.0-36.0); MCV 88 fL (80-95); MPV 8.7 fL (8.0-11.0); Monocytes % 5.8; Neutrophils % 88.1; Platelet Count 239 10^3/uL (130-400); RBC 4.55 10^6/uL (3.93-5.22); RDW-SD 52.3 fL; WBC 15.91 10^3/uL (4.4-10.8)
[2022-11-27 12:32] LABS: Absolute Eosinophil Count 0.02 10^3/uL (0.0-0.7); Absolute Lymphocyte Count 0.76 10^3/uL (1.2-3.4); Absolute Monocyte Count 0.92 10^3/uL (0.1-0.8); Absolute Neutrophil Count 14.02 10^3/uL (1.2-6.7)
[2022-11-27 12:49] LABS: ALT 15 U/L (14-59); AST 14 U/L (15-37); Albumin 4.1 g/dL (3.4-5.0); Alkaline Phosphatase 105 U/L (46-116); Anion Gap -0.5 mmol/L (3-11); BUN 10 mg/dL (7-18); Bilirubin, Total 0.3 mg/dL (0.2-1.0); CO2 40.5 mmol/L (21.0-32.0); CREATININE 0.9 mg/dL (0.55-1.02); Calcium 9.6 mg/dL (8.5-10.1); Chloride 98 mmol/L (98-107); Estimated GFR 65.84 (mL/min/1.73m2); Glucose 218 mg/dL (74-106); Potassium 4.9 mmol/L (3.5-5.1); Sodium 138 mmol/L (136-145); Total Protein 8.2 g/dL (6.4-8.2); Troponin I < 50 ng/L (<or=60)
--- NOTE | 2022-11-27 13:03 | DI.CT_ITS ---
Exam(s) CT HEAD WO EXAM: CT HEAD WO CLINICAL HISTORY: AMS. TECHNIQUE: Imaging Protocol: Axial computed tomography images with coronal and sagittal reformatted images were created and reviewed COMPARISON: CT CT HEAD CERVICAL SPINE WO from 11/03/2022 FINDINGS: Ventricles and Extra axial spaces: Normal in size and morphology for the patient's age. Hemorrhage: None. Cerebral parenchyma: No evidence of acute infarct or mass. Midline shift: None. Brainstem/Cerebellum: Normal. Calvarium: Normal. Visualized Paranasal sinuses/Mastoids: Clear. Soft Tissues: Unremarkable. IMPRESSION: No acute intracranial process. RADIATION DOSE DELIVERED: Total DLP DATA REPOSITORY: All CT scans at this facility are submitted to the National Radiology Data Registry (NRDR) Dose Index Registry (DIR) with the [employer] (ACR). RADIATION OPTIMIZATION: All CT scans at this facility use at least one of these dose optimization te chniques: automated exposure control; mA and/or kV adjustment per patient size (includes targeted exa ms where dose is matched to clinical indication); or iterative reconstruction.
--- NOTE | 2022-11-27 13:42 | DI.VRAD_ITS ---
PROCEDURE INFORMATION: Exam: CT Head Without Contrast Exam date and time: 11/27/2022 1:03 PM Age: 77 years old Clinical indication: Other: AMS TECHNIQUE: Imaging protocol: Computed tomography of the head without contrast. Radiation optimization: All CT scans at this facility use at least one of these dose optimization techniques: automated exposure control; mA and/or kV adjustment per patient size (includes targeted exams where dose is matched to clinical indication); or iterative reconstruction. COMPARISON: CT HEAD CERVICAL SPINE WO 11/03/2022 5:10 PM FINDINGS: Brain: Ventricles, sulci are within normal limits. There is no evidence of acute hemorrhage, mass or shift. There is no evidence of an acute cortical or major vascular territory infarct. No abnormal extra-axial collections are identified. Cerebral ventricles: No significant ventricular enlargement/hydrocephalus. Paranasal sinuses: No significant sinus opacification or fluid level Mastoid air cells: No significant mastoid opacification Bones/joints: There is no acute bony abnormality Soft tissues: Subcutaneous soft tissues are unremarkable IMPRESSION: No acute findings. Dictated and Authenticated by: Delfina Doss MD. Ordering:OLGA Felton MD
--- NOTE | 2022-11-27 13:44 | DI.VRAD_ITS ---
PROCEDURE INFORMATION: Exam: XR Chest Exam date and time: 11/27/2022 1:15 PM Age: 77 years old Clinical indication: Shortness of breath; Patient HX: SOB TECHNIQUE: Imaging protocol: Radiologic exam of the chest. Views: 1 view. COMPARISON: CR XR CHEST 1V IN DI DEPT 11/04/2022 11:15 PM FINDINGS: Lungs: There are findings suspicious for pulmonary venous hypertension and mild vascular congestion. There is some patchy airspace disease in the left mid lung. No lobar consolidation identified. Pleural spaces: Large pleural effusion, or pneumothorax is not seen Heart/Mediastinum: Heart, mediastinum are unchanged Bones/joints: There is no acute bony abnormality Other findings: Exam mildly degraded by motion IMPRESSION: Findings suspicious for pulmonary venous hypertension, mild vascular congestion. Probable patchy airspace disease left mid lung. Dictated and Authenticated by: Delfina Doss MD. Ordering:OLGA Felton MD
--- NOTE | 2022-11-27 14:10 | NUR.NOTE ---
Nursing Note: called report to Sarah HINOJOSA; pt will be going to room 228 shortly.
--- NOTE | 2022-11-27 15:57 | W.PM.HP.N ---
Date of service: 11/27/22 Time of Service: 15:57 Assessment and Plan Assessment and plan (1) Acute respiratory failure with hypoxia: Status: Acute Assessment and plan: Admitted to [facility] under hospitalist services for end-of-life care. Discussed with Dr. Peanloza History of Present Illness History of Present Illness Chief Complaint: altered mental status, hypoxic resp failure Narrative: This is a 77-year-old female patient with a history of COPD on chronic oxygen dependency who per ED report texted family today to states she was not feeling well. By the time they arrived at the house she was unresponsive. When EMS got there she was obtunded with a room air sat at 55%. On 100% nonrebreather she was oxygenating only in the high 80s and continued to deteriorate to 68%. She arrived to the emergency department with a GCS of 3. Work-up included a head CT with no acute findings and a chest x-ray that showed mild vascular congestion probable patchy airspace disease and pulmonary venous hypertension. Her troponin was negative rest of her labs essentially unrevealing. She did have a bicarb of 40. Blood sugar 200 white count 16 with a hemoglobin of 10.5 hematocrit of 39.9. Emergency department did discuss goals of care and limits of care with family. Patient has been DNR/DNI and after reviewing her advanced directives and per her previous wishes decision to proceed with comfort focused care was initiated. Hospitalist services was contacted and she was admitted to the medical surgical unit for comfort/end-of-life care. Shortly after arriving onto the medical surgical unit she surcomb to her illness. [facility] All Active Problems (Updated 11/27/22 @ 16:03 by Danielle Johnson NP) Acute respiratory failure with hypoxia (Acute) Myalgia (Acute) Iron deficiency anemia (Acute) Fall (Acute) Back pain (Acute) Shortness of breath (Acute) COPD exacerbation (Acute) Advanced care planning/counseling discussion (Acute) Pneumonia (Acute) Diarrhea (Acute) History of Clostridioides difficile colitis (Acute) Bilateral pneumonia (Acute) LLL pneumonia (Acute ~03/30/18) Acute exacerbation of chronic obstructive pulmonary disease (Acute) Dependence on supplemental oxygen (Acute) Right shoulder pain (Acute) Abnormal weight loss (Acute) Chronic respiratory failure with hypercapnia (Acute) Palliative care patient (Acute) Depression (Chronic) Protein calorie malnutrition (Acute) Chronic pain (Chronic) TERESA (acute kidney injury) (Acute) Acute on chronic respiratory failure with hypoxia and hypercapnia (Acute) Hyponatremia (Chronic) Epigastric pain (Acute) COPD with acute exacerbation (Acute) Odynophagia (Acute) GERD (gastroesophageal reflux disease) (Chronic) Chronic obstructive pulmonary disease (Chronic) Lumbosacral spondylosis without myelopathy (Acute) Fibromyalgia (Acute) Fall (Acute) Low back pain (Acute) Discharge planning issues (Acute) T12 compression fracture (Acute) Hemoptysis (Acute) History of cataract removal with insertion of prosthetic lens (Acute 06/05/15) Status post appendectomy (Acute) Status post laminectomy (Acute) Pain from implanted hardware (Chronic 10/30/18) S/P Hardware removal Chronic anxiety (Chronic 06/22/13) Chronic emphysema syndrome (Chronic) Chronic pain in right shoulder (Chronic 11/20/13) Moderate protein malnutrition (Chronic 11/20/13) Neck pain (Acute) Irritable bowel syndrome with diarrhea (Chronic) History of tobacco abuse (Chronic) Anxiety (Chronic) Medical History Acute exacerbation of chronic obstructive pulmonary disease (COPD) C. difficile colitis Cervical neck pain with evidence of disc disease (06/22/13) Contusion of right knee, initial encounter DNI (do not intubate) DNR (do not resuscitate) Ongoing leg pain continue nSaid prn tramadol see surgeon next week consider topical analgesic on surrounding skin Pneumothorax, spontaneous, tension (04/11/10) POLST (Physician Orders for Life-Sustaining Treatment) Surgical History Appendectomy CHEST TUBE Extraction of cataract 06/05/15; LEFT EYE; DR. ARAUZ H/O section Hx of hysterectomy LAMINECTOMY CERVICAL SPINE Right femoral fracture (05/09/17) ORIF DOS: 05/10/17 Dr. Bob Family History Mother , at age 89, cardiac problems No problems noted. Father , at 81 Cancer Throat cancer Brother , at 71 Colon cancer Sister Diabetes DM2 Sister Diabetes DM2 Son No problems noted. Social History Smoking/Tobacco Use Status: Former Tobacco Use Quit Date: 07/17/14 Pack-years: 50 Tobacco: How many years used: 50 Smoking risk assessment performed?: Yes Alcohol Intake: former Year quit: 1979 Drug use: Never Substance use type: does not use Household members: none Housing: apartment Do you feel safe at home: Yes Do you feel safe in your relationship?: No Additional Social history: 16 years ago. Originally from [place], moved here to be near son and grand children. [place]. Enjoys contact with 4 grandchildren throughout the day (they are homeschooled and her home much of the time). Bedbound approximately 22 hours a day. On disability due to chronic back pain. 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 Approximate 75 pack year history of tobacco. No alcohol or illicit drug use endorsed. Meds Allergies and Home Medications Allergies Allergy/AdvReac Type Severity Reaction Status Date / Time No Known Allergies Allergy Verified 11/03/22 15:54 Home Medications Medication Instructions Recorded Confirmed Type Oxygen #1 ea 12/12/18 11/19/22 History naloxone 4 mg/actuation nasal 1 spray intranasal Q2-3M PRN 04/18/19 11/19/22 Rx spray (Narcan) opioid overdose #2 ea cholecalciferol (vitamin D3) 50 3,000 unit PO DAILY 05/10/19 11/19/22 History mcg (2,000 unit) tablet (Vitamin D3) vit C 250 mg-vit E 90 mg-zinc 40 2 cap PO DAILY 08/21/21 11/19/22 History mg-copper 1 [id number] capsule (PreserVision AREDS-2) sodium chloride-potassium chloride 1 tab PO BID #60 tabs 01/31/22 11/19/22 Rx 287 mg-180 mg-15 mg tablet (Thermotabs) calcium carbonate 600 mg calcium 3 - 4 tab PO TID PRN PRN Heartburn 04/11/22 11/19/22 History (1.5 gram) chewable tablet cranberry extract-vitamin C 250 1 cap PO DAILY 04/11/22 11/19/22 History mg-60 mg capsule doxylamine succinate 25 mg tablet 25 mg PO QHS PRN Insomnia 04/11/22 11/19/22 History diclofenac sodium 1 % topical gel 2 g topical QID PRN pain #100 grams 04/27/22 11/19/22 Rx mirtazapine 15 mg tablet 15 mg PO HS #90 tabs 05/24/22 11/19/22 Rx omeprazole 40 mg capsule,delayed 40 mg PO DAILY #30 caps 06/28/22 11/19/22 Rx release clonazepam 1 mg tablet 1 mg PO TID PRN anxiety #90 tabs 08/04/22 11/19/22 Rx ipratropium 20 mcg-albuterol 100 1 puff inhalation Q6H #4 grams 08/04/22 11/19/22 Rx mcg/actuation mist for inhalation (Combivent Respimat) sertraline 100 mg tablet 100 mg PO DAILY #90 tab-caps 08/04/22 11/19/22 Rx ipratropium 0.5 mg-albuterol 3 mg 3 ml UPD TID #180 mL 08/24/22 11/19/22 Rx (2.5 mg base)/3 mL nebulization soln acetaminophen 500 mg tablet 1,000 mg PO Q8H PRN pain #90 tabs 10/06/22 11/19/22 Rx gabapentin 100 mg capsule 100 - 200 mg PO TID #270 caps 10/13/22 11/19/22 Rx buprenorphine 15 mcg/hour weekly 1 patch transdermal Q7D #4 ea 10/27/22 11/19/22 Rx transdermal patch (Butrans) sucralfate 1 gram tablet 1 g PO AC & HS #120 tabs 10/27/22 11/19/22 Rx ferrous sulfate 325 mg (65 mg 325 mg PO DAILY #30 tabs 11/03/22 11/19/22 Rx iron) tablet,delayed release furosemide 20 mg tablet (Lasix) 20 mg PO DAILY #14 tabs 11/05/22 11/19/22 Rx ibuprofen 200 mg tablet 600 mg PO Q8H PRN 11/10/22 11/19/22 History Results Labs 11/27/22 12:25 11/27/22 12:25 Labs: Laboratory Results - last 24 hr 11/27/22 11/27/22 12:25 12:25 WBC 15.91 H RBC 4.55 Hgb 10.5 L Hct 39.9 MCV 88 MCH 23.1 L MCHC 26.3 L RDW 17.0 H Plt Count 239 MPV 8.7 Immature Gran % 0.9 Neutrophils % 88.1 Lymphocytes % 4.8 Monocytes % 5.8 Eosinophils % 0.1 Basophils % 0.3 Nucleated RBC % 0.0 Absolute Neutrophils 14.02 H Absolute Lymphocytes 0.76 L Absolute Monocytes 0.92 H Absolute Eosinophils 0.02 Absolute Basophils 0.05 Sodium 138 Potassium 4.9 Chloride 98 Carbon Dioxide 40.5 H Anion Gap -0.5 L BUN 10 Creatinine 0.9 Est GFR (CKD-EPI 2020) 65.84 Glucose 218 H Calcium 9.6 Total Bilirubin 0.3 AST 14 L ALT 15 Alkaline Phosphatase 105 Troponin I < 50 Total Protein 8.2 Albumin 4.1 Last Vital Signs Temp 36.7 C 11/27/22 12:05 Pulse 47 L 11/27/22 14:00 Resp 12 11/27/22 14:12 BP 91/29 L 11/27/22 14:00 Pulse Ox 64 L 11/27/22 14:12 Time Spent Time spent with Patient: <40 minutes Time was spent: preparing to see the patient(eg.review tests), ordering medications,tests, procedures and referring, communicating with other health long term acute care registered nurse
--- NOTE | 2022-11-27 16:06 | W.PM.DDS ---
Date of service: 11/27/22 Time of Service: 16:07 Discharge Plan Disposition Patient Disposition: Discharge Details Reason For Visit: hypoxic resp failure Admit Date/Time: 11/27/22 13:36 Admit Provider: Yvon Penaloza Attending Provider: Yvon Penaloza Primary Care Provider: Ralph Rahman Hospital Course Hospital Course: 77-year-old female oxygen dependent COPD history who notified family she was not feeling well by text. When they arrived to the house she was unresponsive EMS was called. Found to be hypoxic with a sat of 55 transported to the hospital see H&P for full details. Ultimately decision by family to make her comfort measures only. Shortly after arriving to the medical surgical unit she . discussed with DR Penaloza. Discharge Data Discharge Date/Time-TO BE ENTERED AT DEPARTURE: 11/27/22 14:45 Discharge Sum: Diag Contributing Factors (1) Acute respiratory failure with hypoxia:
== END 2022-11-27 14:45 | disposition expired ==
LOC: ER 14:11 → MS 14:22
PROVIDERS: Admitting Provider Family Medicine; Emergency Provider Emergency Medicine; PCP Family Medicine; Visit Provider Family Medicine
DX: J96.01 Acute respiratory failure with hypoxia (principal); R40.2432 Glasgow coma scale score 3-8, at arrival to emergency department; J44.1 Chronic obstructive pulmonary disease with (acute) exacerbation; D50.9 Iron deficiency anemia, unspecified; Z99.81 Dependence on supplemental oxygen; Z51.5 Encounter for palliative care; N17.9 Acute kidney failure, unspecified; F32.A Depression, unspecified; E46 Unspecified protein-calorie malnutrition; J96.21 Acute and chronic respiratory failure with hypoxia; J96.22 Acute and chronic respiratory failure with hypercapnia; K21.9 Gastro-esophageal reflux disease without esophagitis; M47.816 Spondylosis without myelopathy or radiculopathy, lumbar region; M79.7 Fibromyalgia; Z87.891 Personal history of nicotine dependence; F41.9 Anxiety disorder, unspecified
CPT/HCPCS: 36416; 80053; 82962; 96374; 99285; 70450; 71045; 84484; 85025; 99222; G0378